=== PATIENT | female | born 1940 | race Caucasian/White ===

== ENCOUNTER → 2020-03-01 06:12 | Outpatient (CLI) | payer MEDICARE, OTHER, SELFPAY ==
--- NOTE | 2020-03-01 13:58 | STRESSREP_ITS ---
Stress Test Report Date: 03/01/2020 Procedure: Exercise tolerance test/imaging study Indications: Chest pain Consent: Per the patient Procedure: The patient exercised on a Wade protocol for 2 minutes and 30 seconds achieving a peak heart rate of 126 bpm (88 % predicted maximal heart rate) with a peak blood pressure 172/68 mmHg and a peak MET capacity of 4.8 METs. The baseline ECG demonstrated normal sinus rhythm. The peak exercise ECG demonstrated no significant ischemic changes. EKG during recovery revealed no significant ischemic changes [There were no cardiac dysrhythmias pretest, during exercise, or recovery]. The functional capacity was considered decreased for age. Patient had moderate chest tightness and shortness of breath with exertion which improved in the recovery.. The examination was discontinued secondary to dyspnea and chest pain. Impression: 1. Technically adequate (percent predicted maximal heart rate greater than 85%) exercise tolerance test 2. Stress test is negative for exercise-induced EKG changes of ischemia 3. The test test is positive for exercise-induced chest pain 4. Functional capacity is decreased for age 5. Nuclear images pending Myocardial perfusion imaging study: Technique: The patient was injected with 11.8 mCi of technetium 99m Cardiolite and subsequently rest SPECT Cardiolite nuclear imaging was obtained in the horizontal long, vertical long, and short axis views. The patient exercised on a Wade protocol. Please see above for details. The patient was injected with 33.5 mCi of technetium 99m Cardiolite and subsequently stress SPECT Cardiolite nuclear imaging was obtained in the horizontal long, vertical long, and short axis views. A gated Cardiolite study at peak stress was obtained. Interpretation: Rest and stress SPECT Cardiolite nuclear imaging status post realignment, normalization, and attenuation correction, demonstrates overall normal myocard ial radioisotope uptake. The gated Cardiolite study demonstrates no significant regional wall motion abnormalities. The reported LVEF is greater than 70 %. Impression: 1. There is no evidence of significant ischemia or infarction on the nuclear images. However patient had chest tightness and shortness of breath with exertion. 2. The gated Cardiolite study reports an LVEF of greater than 70 %. This note was generated with [employer]ation software. It may contain incorrect words, spelling, and punctuation that were not noted in checking the note before signing.
== END ==
PROVIDERS: PCP Internal Medicine; Referring Provider Clinical Nurse Specialist; Visit Provider Clinical Nurse Specialist
DX: R07.9 Chest pain, unspecified (principal); R06.02 Shortness of breath
CPT/HCPCS: 78452; 93005; 93017; A9500; A4216

== ENCOUNTER → 2020-03-21 15:44 | Outpatient (CLI) | payer MEDICARE, OTHER, SELFPAY ==
[2020-03-21 15:19] VITALS: BMI 23.2
--- NOTE | 2020-03-21 15:50 | RAD_ITS ---
STUDY: X-RAY CHEST REASON FOR EXAM: Female, 79 years old. CHEST PAIN FOR MONTHS, GETTING CARDIAC CATH SOMETIME NEXT WEEK TECHNIQUE: Frontal and lateral views of the chest. COMPARISON: None. FINDINGS: The lungs are hyperexpanded. There are coarsened interstitial markings suggestive of mild chronic fibrosis. No gross focal infiltrates. No gross effusions. Normal size heart. Normal mediastinum and nikhil. Normal visualized pulmonary arteries. Normal visualized aortic arch and descending thoracic aorta. There are diffuse degenerative changes of the visualized thoracic spine. There is degenerative osteoarthritis of the bilateral shoulders. There is no demonstrated abnormality of the visualized soft tissue structures of the upper abdomen. RAD/Chest PA and Lateral IMPRESSION: There are findings consistent with COPD. There is no evidence of acute chest disease. Electronically Signed: Deo Parker MD at 16:17 EDT , Service support ,
[2020-03-21 17:14] LABS: Absolute Lymphocyte Count 1.84 X10^3/uL (0.83-4.51); Absolute Neutrophil Count 5.1 X10^3/uL (2.0-7.7); Basophil# 0.08 X10^3/uL; Eosinophil# 0.17 X10^3/uL; Eosinophils% 2.1 % (0-5); Hematocrit 39.2 % (37-47); Hemoglobin 11.7 g/dL (12.0-15.0); Lymphocyte # 1.84 X10^3/ul (4.0); Lymphocyte % 23.2 % (19-41); Mean Corp Hgb Conc 29.8 g/dL (32-36); Mean Corpuscular Hgb 28.7 pg (27.0-32.0); Mean Corpuscular Volume 96.1 fL (81-99); Mean Platelet Vol. 9.7 fl (6.2-12.0); Monocyte# 0.75 X10^3/uL; Monocyte% 9.5 % (0-10); NRBC Flagged by Analyzer 0 % (0-5); Neutrophil # 5.07 X10^3/uL (2.7-7.7); Neutrophil % 64.1 % (47-70); Platelet Count 301 K/mm3 (150-450); RBC Distribution Width CV 13.4 % (11.6-14.6); RBC Distribution Width SD 47.8 fl (35.1-43.9); Red Blood Count 4.08 M/mm3 (4.2-5.4); White Blood Count 7.9 K/mm3 (4.4-11.0)
[2020-03-21 17:34] LABS: Anion Gap 1 (5-15); BUN 20 mg/dL (7-18); BUN/Creat Ratio 29.4 RATIO (10-20); Calcium,Total 9.3 mg/dL (8.5-10.1); Chloride 106 mmol/L (98-107); Creatinine, Serum 0.68 mg/dL (0.55-1.02); EST Glomerular Filtration Rate 89 mL/min (>60); Est Glom Filt Rate - Afr Amer 108 mL/min (>60); Glucose 87 mg/dL (74-106); Potassium 3.9 mmol/L (3.5-5.1); Sodium Level 140 mmol/L (136-145)
== END ==
PROVIDERS: PCP Internal Medicine; Referring Provider Internal Medicine Cardiovascular Disease; Visit Provider Internal Medicine Cardiovascular Disease
DX: R07.9 Chest pain, unspecified (principal); R06.00 Dyspnea, unspecified
CPT/HCPCS: 36415; 71046; 80048; 85025

== ENCOUNTER 2020-03-26 09:50 | Day surgery (SDC) | payer MEDICARE, OTHER, SELFPAY ==
[2020-03-21 15:19] VITALS: BMI 23.2
[2020-03-25 11:26] VITALS: BMI 23.0
--- NOTE | 2020-03-26 11:02 | CL.D_ITS ---
Patient Name: ELFEGO BALDWIN Study Date: 03/26/2020 Performing: Braulio Prince MD Ht: 62.99 inches 160 cm : 1940 Wt: 130.07 lbs 59 kg Age: 79 Gender: female BSA: 1.61 PROCEDURE(S) PERFORMED BE90-WYS/COR/LV CLINICAL PROFILE AND INDICATIONS Indications: Suspected CAD Heart Failure: None Stress/Imaging Stress/Image Study Performed: No CAD Presentations: Unstable angina. CONCLUSIONS Non obstructive coronary arteries RECOMMENDATIONS Management as per referring Chef Broiler Or Fry DESCRIPTION OF PROCEDURE The patient arrived to the procedure lab. The risks and benefits of the procedure as well as a full d escription of our services here and current unavailability of surgical backup were fully explained to the patient and/or their significant other prior to the catheterization. The Timeout was completed, verifying the correct patient and procedure. The patient's procedural site was prepped and draped in the usual fashion. Local anesthetic was given subcutaneously to right radial region with Lidocaine 2% . Using a modified Seldinger technique, arterial access was obtained via the right radial artery, a 6 Fr sheath was inserted. Left Coronary Artery selective angiography was performed in multiple views u sing a 5 Fr. 4.0 Blockton catheter. Right Coronary Artery selective angiography was then performed in mu ltiple views using a 5 Fr. 4.0 Blockton catheter. Left Ventriculography was performed in ESPOSITO projection using a 5 Fr. Pigtail catheter. LV to AO pullback pressures were then recorded.The arterial sheath was pulled and a TR Band was applied for hemostasis CORONARY ANGIOGRAPHY DOMINANCE: Right Dominant LEFT HEART ASSESSMENT Left Ventricular Ejection Fraction: by LV Gram 70 % Normal LV wall motion Normal Left Ventricular systolic function LEFT MAIN: Non-obstructive LEFT ANTERIOR DESCENDING ARTERY: No significant disease noted CIRCUMFLEX ARTERY: Mild luminal irregularities RIGHT CORONARY ARTERY: Mild luminal irregularities COMPLICATIONS No Complications PROCEDURE MEDICATIONS Versed 2 mg IV Oxygen: 2 L/min via nasal cannula SUMMARY OF HEMODYNAMIC DATA Time AIR REST ECG 10:14:08 AO 139/59 (93) SA 10:46:37 LV 124/-11, -3 10:52:50 LV 132/-8, 0 10:52:56 LV 121/-4, 2 10:53:40 LV 96/-8, -2 10:53:47 LVp 149/0, 7 10:53:58 AOp 131/50 (85) 10:54:03 Signed By Braulio Prince MD On 03/26/2020 11:01:47 Braulio Prince MD
== END 2020-03-26 12:45 | disposition home or self-care (01) ==
LOC: CLSP 09:51
PROVIDERS: PCP Internal Medicine; Referring Provider Internal Medicine Cardiovascular Disease; Visit Provider Internal Medicine Cardiovascular Disease
DX: R06.02 Shortness of breath (principal); R07.9 Chest pain, unspecified; R06.00 Dyspnea, unspecified; E78.5 Hyperlipidemia, unspecified; K21.9 Gastro-esophageal reflux disease without esophagitis; M81.0 Age-related osteoporosis without current pathological fracture; Z86.73 Personal history of transient ischemic attack (TIA), and cerebral infarction without residual deficits; Z87.891 Personal history of nicotine dependence
CPT/HCPCS: 93458; 99152; 99153; J7040; C1769; C1894; Q9967

== ENCOUNTER → 2020-08-07 14:02 | Outpatient (CLI) | payer MEDICARE, OTHER, SELFPAY ==
[2020-03-25 11:26] VITALS: BMI 23.0
--- NOTE | 2020-08-07 14:03 | CT_ITS ---
STUDY: CT CHEST WITHOUT CONTRAST REASON FOR EXAM: Female, 80 years old. DYSPNEA WITH EXERTION X SEVERAL MONTHS, PREV SMOKER-QUIT 50 YRS AGO RADIATION DOSAGE (If Supplied By Facility): CTDIvol = ( 7 ) mGy, DLP = ( 223.68 ) mGycm TECHNIQUE: Transaxial imaging was performed without the administration of intravenous contrast material. Multiplanar coronal and sagittal images were reformatted. Individualized dose optimization techniques were used for this CT. COMPARISON: Chest x-ray 03/21/2020 FINDINGS: There are a few scattered fibrotic bands involving the right middle lobe, lingula and bilateral upper lobes. No honeycombing or bronchiectasis. No endobronchial lesions. There is no demonstrated pleural abnormality. Normal heart and pericardium. There are calcifications of the coronary arteries. Normal mediastinum. Normal hilar regions. Normal unenhanced pulmonary arteries. There is atherosclerotic calcification of the aortic arch with tortuosity and elongation of the aortic arch and descending thoracic aorta. There are multi-level degenerative changes of the thoracic spine. Large simple appearing cyst of the left kidney measures 5.5 x 6.7 cm, incompletely imaged. CT/Chest without Contrast IMPRESSION: 1. No acute airspace disease, pulmonary nodule/mass. 2. Mild scattered fibrotic bands/scarring. 3. 6.7 cm left renal cyst incompletely imaged. Recommend renal ultrasound for further evaluation. 4. Atherosclerosis including coronary arteries. Electronically Signed: Homer Leal MD (Brooks) at 11:56 EST , Service support ,
== END ==
PROVIDERS: PCP Internal Medicine; Referring Provider Internal Medicine Pulmonary Disease; Visit Provider Internal Medicine Pulmonary Disease
DX: R06.00 Dyspnea, unspecified (principal)
CPT/HCPCS: 71250

== ENCOUNTER 2021-06-16 09:05 | Emergency (ER) | payer MEDICARE, OTHER, SELFPAY ==
[2021-06-16 09:05] VITALS: BP 199/89; PULSE 95; RESP 16; TEMP 36.4; O2SAT 99; BMI 23.5
--- NOTE | 2021-06-16 09:18 | RAD_ITS ---
STUDY: X-RAY - RIGHT SHOULDER REASON FOR EXAM: Female, 81 years old. injury TECHNIQUE: 5 view(s) of the shoulder. COMPARISON: None. FINDINGS: There is mild degenerative arthrosis of the glenohumeral articulation. Normal acromioclavicular joint. Normal acromion. Linear radiolucency within the lateral aspect of the cortex of the body the scapula worrisome for a scapular fracture. Correlation with CT would be useful. Normal humeral head and visualized proximal humerus. The soft tissue structures are unremarkable. Normal visualized pulmonary apex. RAD/Shoulder min 2 Views IMPRESSION: Suspect scapular fracture and correlation with CT would be useful. Electronically Signed: Orestes Borden MD at 9:59 EST Tel , Service support ,
--- NOTE | 2021-06-16 09:36 | EDS_ITS ---
HPI History of Present Illness Chief Complaint: Upper Extremity Injury Informant: patient Narrative Narrative: 81-year-old female presents the emergency room with a right shoulder injury. She states that last night she tripped on a rug while trying to let the dog outside. She states she must of twisted because the posterior aspect of her right shoulder struck the corner of the refrigerator. She states that it was painful for most of the night. She took some ibuprofen. Today it continued to hurt so she came to emergency. She notes that the elbow and the hand seem okay. States is very hard for her to try to lift anything. [facility] Medical History (Updated 06/16/21 @ 10:[address] Geoffrey Chatman, DO) GERD (gastroesophageal reflux disease) History of CVA (cerebrovascular accident) (06/19/17) Hyperlipidemia IBS (irritable bowel syndrome) Nonobstructive atherosclerosis of coronary artery Osteoarthritis Osteoporosis Home Medications cholecalciferol (vitamin D3) 1,000 unit PO BID 10/19/15 [History Last Taken Unknown] meclizine 50 mg PO DAILY PRN PRN 10/19/15 [History Last Taken 05/19/17] venlafaxine 75 mg PO DAILY 10/19/15 [History Last Taken 10/23/15] vit C,K-Kb-aesjf-lutein-zeaxan 1 ea PO DAILY 10/19/15 [History Last Taken 10/24/15] acetaminophen 650 mg PO Q4H PRN PRN #0 tab 11/01/15 [Rx Last Taken Unknown] atorvastatin 40 mg PO DAILY #30 tab 05/20/17 [Rx Last Taken Unknown] clopidogrel 75 mg PO DAILY #30 tab 05/20/17 [Rx Last Taken 06/14/21] ascorbate calcium (vitamin C) 500 mg tablet 500 mg PO BID 03/21/20 [History Last Taken Unknown] aspirin 81 mg tablet,delayed release 81 mg PO DAILY 03/21/20 [History Last Taken 03/26/20] chlorpheniramine maleate 4 mg tablet 4 mg PO Q8H PRN 03/21/20 [History Last Take n Unknown] nitroglycerin 0.4 mg sublingual tablet 0.4 mg SUBLINGUAL Q5-15M PRN 03/21/20 [History Last Taken Unknown] polypodium leucotomos extract 240 mg capsule mg PO .M/W/ cap 03/21/20 [History Last Taken Unknown] prenat.vits,luis,eox-icwj-uaowt 1 tab PO DAILY 03/21/20 [History Last Taken Unknown] 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) 30 mg PO ONCE 03/21/20 [History Last Taken Unknown] vitamin E (dl, acetate) 180 mg (400 unit) capsule 400 unit PO DAILY 03/21/20 [History Last Taken Unknown] pantoprazole 40 mg tablet,delayed release 40 mg PO DAILY tablet 10/23/20 [History Last Taken Unknown] oxycodone-acetaminophen 1 tab PO Q6H PRN PRN 5 Days #20 tablet 06/16/21 [Rx Last Taken Unknown] venlafaxine mg PO 06/16/21 [History Last Taken Unknown] Allergy/AdvReac Type Severity Reaction Status Date / Time fentanyl Allergy Itching Verified 06/16/21 09:08 codeine AdvReac Nausea/Vom/ Verified 06/16/21 09:08 Diarrhea Penicillins AdvReac Unknown Verified 06/16/21 09:08 Family History Other Heart disease Surgical History History of left heart catheterization (03/26/20) History of total hip arthroplasty Social History (Updated 06/16/21 @ 09:[address] Geoffrey Chatman DO) Smoking Status: Former smoker substance use type: does not use ROS ROS ED Constitutional Constitutional ED: Denies chills, fever(s) or weight loss Eyes Eyes: Denies change in vision or diplopia ENT ENT ED: Denies ear pain, rhinorrhea or sore throat Cardiovascular Cardiovascular: Denies chest pain, orthopnea, palpitations or racing heartbeat Respiratory/Chest Respiratory/Chest: Denies cough, dyspnea or orthopnea Gastrointestinal Gastrointestinal: Denies abdominal pain, diarrhea, nausea or vomiting Genitourinary Genitourinary ED: Denies dysuria, hematuria or urinary frequency Musculoskeletal Musculoskeletal: Reports other Details: Right shoulder pain ; Denies arthralgias, myalgias or neck pain Integumentary Denies abscess or rash Neurologic Neurologic: Denies headache(s) or weakness Psychiatric Psychiatric: Denies anxiety, depression, suicidal ideation or suicidal thoughts Endocrine Endocrinology: Denies polydipsia, polyphagia or polyuria Allergic/Immunologic Allergic/Immunologic ED: Denies mouth swelling, tongue swelling or urticaria EXAM Physical Exam Const Vital Signs: 06/16/21 09:05 Temperature 97.6 F L Temperature Source Temporal Pulse Rate 95 Respiratory Rate 16 Blood Pressure 199/89 H Blood Pressure Mean 125 Pulse Ox 99 Oxygen Delivery Method Room Air Positive well nourished and well developed General Appearance ED: well developed HEENT Reports normocephalic, head/scalp atraumatic and moist mucous membranes normocephalic and atraumatic Eyes PERRL and EOMs intact bilaterally Neck full ROM, no lymphadenopathy, supple and no JVD Resp normal respiratory effort and clear to auscultation bilaterally Cardio regular rate, regular rhythm and no murmurs GI normal to inspection, nondistended, normoactive bowel sounds and non-tender Palpation: soft Back/Spine no CVA tenderness and normal ROM Extremity Extremity Narrative: The right shoulder shows tenderness to palpation posteriorly and along the scapula laterally.. There is no AC tenderness or clavicle deformity. Very limited range of motion due to pain. No obvious dislocation. Neurovascular intact distal. General Extremety ED: Negative for edema General Extremity: Negative for edema Neuro oriented x3 and CN's II-XII intact bilaterally Sensorium / Orientation: alert Motor Exam: strength 5/5 throughout Psych mental status grossly normal Mood & Affect: Negative for depressed or tearful Skin no rashes or lesions noted and no wounds MDM MDM MDM Narrative Medical decision making narrative: My interpretation of the x-rays of the right shoulder is fracture of the body of the scapula. Patient received Toradol for pain as she is driving. A CT of the shoulder was obtained demonstrates no associated rib fractures. I do not see any obvious pneumothorax or pulmonary contusion. It is a nondisplaced fracture obliquely through the body. Her orthopedist is Dr. Tatum who will follow up with her as an outpatient Discharge Plan Triage Chief Complaint: Upper Extremity Injury ED Provider: Geoffrey Chatman Dx/Rx/DC Orders Clinical Impression: Closed fracture of right scapula Instructions: ED Fracture, Shoulder Prescriptions: New oxycodone-acetaminophen [oxycodone-acetaminophen] 1 TABLET tablet 1 tab PO Q6H PRN PRN (Reason: pain) 5 Days Qty: 20 RF: 0 No Action aspirin [Adult Aspirin Regimen] 81 mg tablet,delayed release (DR/EC) 81 mg PO DAILY RF: 0 nitroglycerin 0.4 mg tablet, sublingual 0.4 mg SUBLINGUAL Q5-15M PRN (Reason: chest pain) RF: 0 vitamin E (dl, acetate) 400 unit capsule 400 unit PO DAILY RF: 0 ascorbate calcium (vitamin C) 500 mg tablet 500 mg PO BID RF: 0 polypodium leucotomos extract 240 mg capsule 240 mg capsule PO .// RF: 0 prenat.vits,luis,qtp-pmmk-lxgzi Tablet 1 tab PO DAILY RF: 0 chlorpheniramine maleate [ChlorTabs] 4 mg tablet 4 mg PO Q8H PRN (Reason: Allergies) RF: 0 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) 30 mg PO ONCE RF: 0 pantoprazole 40 mg tablet,delayed release (DR/EC) 40 mg PO DAILY RF: 0 venlafaxine 75 MG tablet 75 mg PO DAILY RF: 0 cholecalciferol (vitamin D3) 1,000 UNIT tablet 1,000 unit PO BID RF: 0 vit C,D-Ou-qjrko-lutein-zeaxan 1 EACH capsule 1 ea PO DAILY RF: 0 meclizine 25 MG tablet 50 mg PO DAILY PRN PRN (Reason: Dizziness) RF: 0 acetaminophen 325 MG tablet 650 mg PO Q4H PRN PRN (Reason: Mild-Mod Pain (-12/17)) Qty: 0 RF: 0 clopidogrel 75 MG tablet 75 mg PO DAILY Qty: 30 RF: 0 atorvastatin 40 MG tablet 40 mg PO DAILY Qty: 30 RF: 0 venlafaxine 150 mg capsule,extended release 24hr PO RF: 0 Primary Care Provider: Cary Moon Referrals: Cary Moon MD [Primary Care Provider] - Fabio Tatum MD [STAFF PHYSICIAN] - As soon as possible Disposition Disposition: Home, Self Care
--- NOTE | 2021-06-16 09:40 | CT_ITS ---
STUDY: CT RIGHT SHOULDER REASON FOR EXAM: Female, 81 years old. scapula fracture RADIATION DOSAGE (If Supplied By Facility): CTDIvol = ( 24.60 ) mGy, DLP = ( 511.78 ) mGycm TECHNIQUE: The patient was scanned in a multi detector CT scanner. High resolution transaxial imaging was performed without the administration of intravenous contrast material. Sagittal and coronal images were reconstructed. Individualized dose optimization techniques were used for this CT. COMPARISON: X-ray earlier today FINDINGS: There is mild osteoarthritis of the glenohumeral articulation, with mild articular joint space narrowing and mild osteoarthritic spurring. Normal glenoid rim, neck and visualized scapula. Normal humeral head, neck and tuberosities. Acute nondisplaced oblique fracture the body the scapula. Normal coracoid process. Normal visualized lateral clavicle. Normal acromioclavicular articulation. There is a Type II morphology (curved), with a neutral orientation. Normal visualized muscles and soft tissue structures. CT/Extremity Upper without Contra IMPRESSION: Acute nondisplaced oblique fracture the body the scapula. Electronically Signed: Orestes Borden MD at 10:44 EST Tel , Service support ,
[2021-06-16 09:49] VITALS: BP 178/76; PULSE 95; RESP 16; O2SAT 99
[2021-06-16] MEDS: Ketorolac 30 MG/ML Syringe IM (10:08)
== END 2021-06-16 11:04 | disposition home or self-care (01) ==
PROVIDERS: Emergency Provider Emergency Medicine; PCP Internal Medicine
DX: S42.114A Nondisplaced fracture of body of scapula, right shoulder, initial encounter for closed fracture (principal); W22.8XXA Striking against or struck by other objects, initial encounter; Y93.89 Activity, other specified; Y92.9 Unspecified place or not applicable; Y99.8 Other external cause status; E78.5 Hyperlipidemia, unspecified; K21.9 Gastro-esophageal reflux disease without esophagitis; K58.9 Irritable bowel syndrome, unspecified; M19.90 Unspecified osteoarthritis, unspecified site; M81.0 Age-related osteoporosis without current pathological fracture; Z79.02 Long term (current) use of antithrombotics/antiplatelets; Z79.82 Long term (current) use of aspirin; Z79.899 Other long term (current) drug therapy; Z87.891 Personal history of nicotine dependence; Z86.73 Personal history of transient ischemic attack (TIA), and cerebral infarction without residual deficits
CPT/HCPCS: 73030; 73200; 96372; 99283

== ENCOUNTER → 2021-12-24 | Outpatient (CLI) | payer MEDICARE, OTHER, SELFPAY ==
--- NOTE | 2021-12-24 | MISC_PTH ---
PATIENT: ELFEGO BALDWIN (ANN MARIE) [facility] U[facility][id number] AGE/SX: 81/F ROOM: RE12/24/[address]: Dr. Arsh Bragg DO : 1940 BED: DIS: 12/24/2021 SPEC #: [id number] RECD: 12/24/21 15:02 STATUS: CATHY RESteve #: [id number] SUNG: 12/24/21 00:[address]: Arsh Bragg DEPT: SURGICAL PATHOLOGY RECD BY: Glynn Strong ENTERED: 12/25/21 09:15 SP TYPE: [facility] [place]: Dr. Cary Moon MD Tissues: Vertebra, NOS Procedures: Decalcification bone/plaque Surgery Specimen Level V HEADER OPERATION: Thoracic 11 kyphoplasty PRE-OP DIAGNOSIS: Wedge compression fracture of T11-T12 vertebra TISSUE SUBMITTED: T11 vertebra MICROSCOPIC DIAGNOSIS T11 vertebra, kyphoplasty: Fragments of bone with callus formation and reactive changes, clinically wedge compression fracture T11-T12 vertebra. PATRICK:rodrigo 12/26/2021 MICROSCOPIC DESCRIPTION Slides are reviewed. GROSS DESCRIPTION Received in fixative is one container labeled with the patient's name and designated T11 vertebra. The specimen consists of two elongated fragments of crews bone each measuring 0.6 cm in length and 0.2 cm in diameter. The specimen is totally submitted in one cassette after decalcification. / PATRICK:rodrigo 12/25/2021 TC:5 CPT: 17151, 72837
== END | disposition home or self-care (01) ==
LOC: LABSPEC 15:27
PROVIDERS: PCP Internal Medicine; Referring Provider Orthopaedic Surgery; Visit Provider Orthopaedic Surgery
DX: M48.54XA Collapsed vertebra, not elsewhere classified, thoracic region, initial encounter for fracture (principal)
CPT/HCPCS: 88305; 88307; 88311

== ENCOUNTER 2023-08-28 15:45 | Inpatient (IN) | payer MEDICARE, OTHER, SELFPAY ==
--- OUTSIDE RECORDS SUMMARY | 2023-08-28 16:05 | XMS RPT_ITS | CCD ---
Author Name Unknown Address [address] [place] [address] Organization [facility] Care Team Providers Care Ccie Name Role Phone Subha Whiteside Unavailable UnavailSubha Thomson Unavailable Unavailabl e Sarai Jonny Tatiana Unavailable Unavailable Jonny Moon MD Primary Care Provider Jonny Moon MD Primary Care Provider Jonny Moon MD Primary Care Provider SARAI JONNY D Referring Unavailable TALAMPAS, JONNY D Primary Care Unavailable TALAMPAS, JONNY D Referring Unavailable TALAMPAS, JONNY D Primary Care Unavailable TALAMPAS, JONNY D Attending Unavailable TALAMPAS, JONNY D Primary Care Unavailable TALAMPAS, JONNY D Referring Unavailable TALAMPAS, JONNY D Primary Care Unavailable TALAMPAS, JONNY D Primary Care Unavailable TALAMPAS, JONNY D Primary Care Unavailable TALAMPAS, JONNY D Attending Unavailable PATTI MAN Attending PATTI Maldonado Consulting PATTI Maldonado Admitting Unavai lable NO, PHYSICIAN Primary Care Unavailable CRISSY LUU Consulting Unavailab PATTI Back Referring PATTI Maldonado Admitting Unavai lable NO, PHYSICIAN Primary Care Unavailable NO, PHYSICIAN Primary Care Unavailable WESTLEY HAMEED Attending Unavailable WESTLEY HAMEED Admitting Unavailable Allergies Allergy Classification Reported Allergen(s) Allergy Type Date of Onset Reaction(s) Facility (20 sources) codeine; Translations: [codeine] Drug Allergy 3 GI Upset [facility] Repository (20 sources) fentaNYL; Translations: [fentaNYL] Drug Allergy 7 Itching [facility] Repository (20 sources) Penicillins; Translations: [penicillins] Propensity to adverse reactions to drug (disorder) 3 Unknown [facility] Repository Medications Current Medications Medication Drug Class(es) Dates Sig (Normalized) Sig (Original) polyethylene glycol 3350 690795 mg / potassium chloride 2970 mg / sodium bicarbonate 6740 mg / sodium chloride 5860 mg / sodium sulfate 61026 mg powder for oral solution (1 source) Osmotic Laxative Start: 04-09-2022 End: 04-09-2022 peg 3350-Electrolytes (GOLYTELY) 236-22.74-6.74 -5.86 gram suspension Take 4,000 mL by mouth one time only for 1 dose. 1 Each 0 04/09/2022 04/09/2022 Active Completed/Discontinued Medications Medication Drug Class(es) Dates Sig (Normalized) Sig (Original) 8 hr acetaminophen 650 mg extended release oral tablet (20 sources) Start: 12-17-2007 acetaminophen(TYLE NOL ARTHRITIS PAIN 650 MG TAB) Take two(2) tablets twice daily. 0 0 12/17/2007 Active Problems Active Problems Problem Classification Problem Date Documented Da te Episodic/Chronic Abdominal pain (5 sources) Right upper quadrant pain; Translations: [Right upper quadrant pain] Episodic Deficiency and other anemia (2 sources) Iron deficiency anemia; Translations: [Iron deficiency anemia, unspecified] Episodic Disorders of lipid metabolism (20 sources) Hyperlipidemia; Translations: [Hyperlipidemia, unspecified] Onset: 5 10-16-2015 Chronic E Codes: Fall (1 source) Fall; Translations: [Unspecified fall, initial encounter] Episodic Esophageal disorders (20 sources) Gastroesophageal reflux disease without esophagitis; Translations: [Gastro-esophageal reflux disease without esophagitis] Onset: 6 08-05-2021 Chronic Fracture of lower limb (2 sources) Displaced oblique fracture of shaft of right femur, initial encounter for closed fracture; Translations: [Displaced oblique fracture of shaft of right femur, initial encounter for closed fracture] Onset: Episodic Malaise and fatigue (2 sources) Fatigue; Translations: [Other fatigue] Episodic Mood disorders (20 sources) Recurrent major depression in remission; Translations: [Major depressive disorder, recurrent, in remission, unspecified] Onset: 7 11-17-2016 Chronic Nutritional deficiencies (20 sources) Vitamin D deficiency; Translations: [Vitamin D deficiency, unspecified] Onset: 8 07-05-2018 Chronic Osteoporosis (20 sources) Osteoporosis; Translations: [Age-related osteoporosis without current pathological fracture] 08-05-2021 Chronic Other aftercare (5 sources) Patient encounter status; Translations: [Other mcc (current) drug therapy] Episodic Other aftercare (1 source) Other mcc (current) drug therapy; Translations: [Encounter for long-term current use of medication] Onset: 3 Episodic Other connective tissue disease (20 sources) History of total replacement of right hip joint; Translations: [Presence of right artificial hip joint] Onset: 4 08-05-2021 Chronic Other connective tissue disease (1 source) Cramp in lower limb; Translations: [Cramp and spasm] Episodic Other fractures (1 source) Closed fracture thoracic vertebra; Translations: [Unspecified fracture of T11-T12 vertebra, initial encounter for closed fracture] Episodic Other gastrointestinal disorders (20 sources) Constipation; Translations: [Constipation, unspecified] 08-05-2021 Episodic Other gastrointestinal disorders (1 source) Alteration in bowel elimination; Translations: [Change in bowel habit] Episodic Other gastrointestinal disorders (1 source) Altered bowel function; Translations: [Change in bowel habit] 06-17-2022 Episodic Other gastrointestinal disorders (1 source) Abdominal bloating; Translations: [Abdominal distension (gaseous)] 06-17-2022 Episodic Other nervous system disorders (1 source) Loss of sense of smell; Translations: [Anosmia] Episodic Other nervous system disorders (2 sources) Loss of taste; Translations: [Parageusia] Episodic Pathological fracture (3 sources) Primary osteoporosis; Translations: [Age-related osteoporosis with current pathological fracture, unspecified site, subsequent encounter for fracture with delayed healing] Episodic Residual codes; unclassified (1 source) Postmenopausal state; Translations: [Asymptomatic menopausal state] 07-21-2023 Episodic Residual codes; unclassified (1 source) Asymptomatic menopausal state; Translations: [Postmenopausal status] Onset: 01-08-202 4 Episodic Spondylosis; intervertebral disc disorders; other back problems (20 sources) Thoracic and lumbosacral neuritis; Translations: [Thoracic or lumbosacral neuritis or radiculitis, unspecified] 07-17-2005 Episodic Viral infection (1 source) Disease caused by 2019-nCoV; Translations: [COVID-19] Episodic Past or Other Problems Problem Classification Problem Date Documented Date Episodic/Chronic Deficiency and other anemia (20 sources) Anemia; Translations: [Anemia, unspecified] Onset: 01-29-2013 01-29-2013 Episodic Genitourinary symptoms and ill-defined conditions (20 sources) Nocturia; Translations: [Nocturia] Onset: 07-12-2017 07-12-2017 Episodic Inflammation; infection of eye (except that caused by tuberculosis or sexually transmitteddisease) (20 sources) Uveitis; 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] Onset: 04-06-2017 04-06-2017 Episodic Other circulatory disease (20 sources) History of cerebrovascular accident; Translations: [Personal history of transient ischemic attack (TIA), and cerebral infarction without residual deficits] Onset: 07-12-2017 07-12-2017 Episodic Results Test Name Value Interpretation Reference Range Facil ity Vital Signs Date Time Vital Sign Value Performing Clinician Faci lity 07-20-2023 10:50-0500 Body height 157.5 cm Jonny Moon MD Work Phone: [facility] 07-20-2023 10:50-0500 Body temperature 99.19 [degF] Jonny Moon MD Work Phone: [facility] 07-20-2023 10:50-0500 Body weight 57.15 kg Jonny Moon MD Work Phone: [facility] 07-20-2023 10:50-0500 Diastolic blood pressure 68 mm[Hg] Jonny Moon MD Work Phone: [facility] 07-20-2023 10:50-0500 Heart rate 75 /min Jonny Moon MD Work Phone: [facility] 07-20-2023 10:50-0500 Respiratory rate 12 /min Jonny Moon MD Work Phone: [facility] 07-20-2023 10:50-0500 SaO2% (BldA) [Mass fraction] 98 % Jonny Moon MD Work Phone: [facility] 07-20-2023 10:50-0500 Systolic blood pressure 122 mm[Hg] Jonny Moon MD Work Phone: [facility] 01-12-2023 15:26-0400 Body temperature 98.71 [degF] Jonny Moon MD Work Phone: [facility] 01-12-2023 15:26-0400 Body weight 55.34 kg Jonny Moon MD Work Phone: [facility] 01-12-2023 15:26-0400 Diastolic blood pressure 72 mm[Hg] Jonny Moon MD Work Phone: [facility] 01-12-2023 15:26-0400 Heart rate 72 /min Jonny Moon MD Work Phone: [facility] 01-12-2023 15:26-0400 Respiratory rate 18 /min Jonny Moon MD Work Phone: [facility] 01-12-2023 15:26-0400 SaO2% (BldA) [Mass fraction] 99 % Jonny Moon MD Work Phone: [facility] 01-12-2023 15:26-0400 Systolic blood pressure 142 mm[Hg] Jonny Moon MD Work Phone: [facility] 07-07-2022 14:55-0500 Body temperature 98.01 [degF] Treatment Wstr Work Phone: [facility] 07-07-2022 14:55-0500 Diastolic blood pressure 72 mm[Hg] Treatment Wstr Work Phone: [facility] 07-07-2022 14:55-0500 Heart rate 87 /min Treatment Wstr Work Phone: [facility] 07-07-2022 14:55-0500 Systolic blood pressure 138 mm[Hg] Treatment Wstr Work Phone: [facility] 06-17-2022 11:49-0500 Diastolic blood pressure 67 mm[Hg] Orestes Jackson MD Work Phone: [facility] 06-17-2022 11:49-0500 Heart rate 72 /min Orestes Jackson MD Work Phone: [facility] 06-17-2022 11:49-0500 Respiratory rate 16 /min Orestes Jackson MD Work Phone: [facility] 06-17-2022 11:49-0500 SaO2% (BldA) [Mass fraction] 97 % Orestes Jackson MD Work Phone: [facility] 06-17-2022 11:49-0500 Systolic blood pressure 155 mm[Hg] Orestes Jackson MD Work Phone: [facility] 06-17-2022 09:17-0500 Body temperature 97.59 [degF] Orestes Jackson MD Work Phone: [facility] 06-17-2022 09:17-0500 Body weight 56.7 kg Orestes Jackson MD Work Phone: [facility] 05-23-2022 14:54-0400 Body weight 56.7 kg Jonny Moon MD Work Phone: [facility] 05-23-2022 14:54-0400 Diastolic blood pressure 78 mm[Hg] Jonny Moon MD Work Phone: [facility] 05-23-2022 14:54-0400 Heart rate 81 /min Jonny Moon MD Work Phone: [facility] 05-23-2022 14:54-0400 SaO2% (BldA) [Mass fraction] 97 % Jonny Moon MD Work Phone: [facility] 05-23-2022 14:54-0400 Systolic blood pressure 142 mm[Hg] Jonny Moon MD Work Phone: [facility] 04-08-2022 14:47-0400 Body height 157.5 cm Desiree Aviston PA-C Work Phone: [facility] 04-08-2022 14:47-0400 Body temperature 98.01 [degF] Desiree Aviston PA-C Work Phone: [facility] 04-08-2022 14:47-0400 Body weight 56.25 kg Desiree Sal PA-C Work Phone: [facility] 04-08-2022 14:47-0400 Diastolic blood pressure 62 mm[Hg] Desiree Sal PA-C Work Phone: [facility] 04-08-2022 14:47-0400 Heart rate 87 /min Desiree Sal PA-C Work Phone: [facility] 04-08-2022 14:47-0400 SaO2% (BldA) [Mass fraction] 97 % Desiree Sal PA-C Work Phone: [facility] 04-08-2022 14:47-0400 Systolic blood pressure 132 mm[Hg] Desiree Aviston PA-C Work Phone: [facility] 01-14-2022 13:38-0400 Body weight 58.06 kg Sandi Lara NOVELTY CHAIN MAKER.INSPECTOR AND UNLOADER Work Phone: [facility] 01-14-2022 13:38-0400 Diastolic blood pressure 82 mm[Hg] Sandi Lara NOVELTY CHAIN MAKER.INSPECTOR AND UNLOADER Work Phone: [facility] 01-14-2022 13:38-0400 Heart rate 84 /min Sandi Lara NOVELTY CHAIN MAKER.INSPECTOR AND UNLOADER Work Phone: [facility] 01-14-2022 13:38-0400 Respiratory rate 16 /min Sandi Lara NOVELTY CHAIN MAKER.INSPECTOR AND UNLOADER Work Phone: [facility] 01-14-2022 13:38-0400 Systolic blood pressure 136 mm[Hg] Sandi Lara NOVELTY CHAIN MAKER.INSPECTOR AND UNLOADER Work Phone: [facility] 12-03-2021 14:01-0400 Body temperature 97.81 [degF] Annie Abebe NOVELTY CHAIN MAKER.EXPLOITATION ANALYST Work Phone: [facility] 12-03-2021 14:01-0400 Body weight 59.24 kg Annie Abebe NOVELTY CHAIN MAKER.EXPLOITATION ANALYST Work Phone: [facility] 12-03-2021 14:01-0400 Diastolic blood pressure 78 mm[Hg] Annie Abebe NOVELTY CHAIN MAKER.EXPLOITATION ANALYST Work Phone: [facility] 12-03-2021 14:01-0400 Heart rate 88 /min Annie Abebe NOVELTY CHAIN MAKER.EXPLOITATION ANALYST Work Phone: [facility] 12-03-2021 14:01-0400 Respiratory rate 16 /min Annie Abebe NOVELTY CHAIN MAKER.EXPLOITATION ANALYST Work Phone: [facility] 12-03-2021 14:01-0400 SaO2% (BldA) [Mass fraction] 99 % Annie Abebe NOVELTY CHAIN MAKER.EXPLOITATION ANALYST Work Phone: [facility] 12-03-2021 14:01-0400 Systolic blood pressure 126 mm[Hg] Annie Abebe NOVELTY CHAIN MAKER.EXPLOITATION ANALYST Work Phone: [facility] 11-18-2021 16:51-0400 Body weight 61.69 kg Jonny Moon MD Work Phone: [facility] 11-18-2021 16:51-0400 Diastolic blood pressure 82 mm[Hg] Jonny Moon MD Work Phone: [facility] 11-18-2021 16:51-0400 Heart rate 84 /min Jonny Moon MD Work Phone: [facility] 11-18-2021 16:51-0400 Systolic blood pressure 128 mm[Hg] Jonny Moon MD Work Phone: [facility] Encounters Encounter Date Encounter Type Care Provider Facility Start: 08-25-2023 Evaluation and management of inpatient [facility] Start: 08-21-2023 Evaluation and management of inpatient [facility] Start: 08-21-2023 End: 08-25-2023 Emergency department patient visit [facility] Start: 08-17-2023 End: 08-17-2023 ambulatory JONNY MOON Facility:[facility] Start: 08-14-2023 End: 08-14-2023 ambulatory JONNY MOON Facility:[facility] Start: 07-20-2023 End: 07-20-2023 ambulatory JONNY MOON Facility:[facility] Start: 07-20-2023 End: 07-20-2023 Office outpatient visit 25 minutes Jonny Moon MD Work Phone: [facility] Procedures Date Procedure Procedure Detail Performing Clinician Start: 06-17-2022 Level iv surg pathology gross&microscopic exam Orestes Jackson MD Work Phone: Start: 06-17-2022 Esophagogastroduodenoscopy transoral diagnostic Desiree Huang PA-C Work Phone: Start: 06-17-2022 Colonoscopy flx dx w/collj spec when pfrmd Desiree Huang PA-C Work Phone: Start: 06-17-2022 Colonoscopy Jonny Moon MD Work Phone: Start: 05-23-2022 INFLUENZA SEASONAL QUADRIVALENT HIGH DOSE AGE 65+ Jonny Moon MD Work Phone: Start: 01-16-2022 Us abdominal real time w/image limited Sandi Isaacdedra ALICEAINSPECTOR AND UNLOADER Work Phone: Plan of Treatment Date Care Activity Detail Author Start: 06-17-2032 Colonoscopy COLONOSCOPY [facility] Start: 06-17-2032 COLORECTAL CANCER SCREENING COLORECTAL CANCER SCREENING [facility] Start: 06-17-2032 Screening for malignant neoplasm of colon [facility] Start: 06-12-2026 Diabetes Screening Diabetes Screening [facility] Start: 07-07-2025 DIABETES SCREEN DIABETES SCREEN [facility] Start: 07-07-2025 Diabetes Screening Diabetes Screening [facility] Start: 03-14-2025 DIABETES SCREEN DIABETES SCREEN [facility] Start: 07-20-2024 End: 10-19-2024 25-hydroxyvitamin D3 [Mass/volume] in Serum or Plasma VITAMIN D 25 HYDROXY Lab Routine Vitamin D deficiency Age-related osteoporosis without current pathological fracture Encounter for long-term current use of medication Expected: 07/20/2024 (Approximate), Expires: 10/19/2024 [facility] Work Phone: Immunizations Immunization Date Immunization Notes Care Provider Jesus Manuel kanu 12-09-2022 zoster vaccine recombinant Jonny Moon MD Work Phone: [facility] 05-23-2022 influenza, high-dose , quadrivalent vaccine (FLUZONE HIGH DOSE QUADRIVALENT) Jonny Moon MD Work Phone: [facility] 05-23-2022 influenza virus vacc ine, unspecified formulation Jonny Moon MD Work Phone: [facility] 05-03-2021 influenza (HD-IIV4) vaccine, age 65+ yr, high dose, quadrivalent, PF (FLUZONE HIGH-DOSE) Jonny Moon MD Work Phone: [facility] 05-03-2021 influenza, high dose seasonal, preservative-free Jonny Moon MD Work Phone: [facility] Work Phone: 05-01-2020 influenza, high dose seasonal, preservative-free Jonny Moon MD Work Phone: [facility] 04-12-2020 influenza (HD-IIV4) vaccine, age 65+ yr, high dose, quadrivalent, PF (FLUZONE HIGH-DOSE) Jonny Moon MD Work Phone: [facility] 04-18-2019 influenza, high dose seasonal, preservative-free Jonny Moon MD Work Phone: [facility] 06-11-2018 influenza virus vacc ine, unspecified formulation Jonny Moon MD Work Phone: [facility] 04-18-2017 influenza, seasonal, injectable, preservative free Jonny Moon MD Work Phone: [facility] 04-20-2016 influenza, seasonal, injectable Jonny Moon MD Work Phone: [facility] Work Phone: 06-20-2015 influenza, seasonal, injectable, preservative free Jonny Moon MD Work Phone: [facility] 04-20-2015 influenza, seasonal, injectable Jonny Moon MD Work Phone: [facility] 08-25-2014 pneumococcal conjuga te vaccine, 13 valent Jonny Moon MD Work Phone: [facility] 04-28-2014 influenza, seasonal, injectable Jonny Moon MD Work Phone: [facility] 06-20-2013 tetanus toxoid, redu jhon diphtheria toxoid, and acellular pertussis vaccine, adsorbed Jonny Moon MD Work Phone: [facility] 04-10-2013 influenza virus vacc ine, whole virus Jonny Moon MD Work Phone: [facility] Work Phone: 12-17-2007 pneumococcal polysaccharide vaccine, 23 valent Jonny Moon MD Work Phone: [facility] Work Phone: Payers Date Payer Category Payer Medicare [id number] 2015 Medicare MEDICARE MEDICAR E A AND B [id number] 2015-Present [phone] [address] [address] [place] [address] Medicare [id number] 2015 Medicare [id number] 2015 Private Health Insurance HUMANA HUMANA MEDICARE SUPPLEMENT [id number] 2015-Present [phone] [address] [address] [place] [address] Indemnity [id number] 2015 Private Health Insurance HUMANA HUMANA MEDICARE SUPPLEMENT [id number] 2015-Present [phone] [address] [address] [place] [address] Indemnity [id number] 2007 Medicare 2007 Medicare [id number] 1940 Unknown [id number] 1940 Unknown [id number] 1940 Unknown [id number] Social History Date Type Detail Facility Start: 08-15-2011 Tobacco smoking stat [facility] Never smoked tobacco [facility] Start: 05-08-2021 End: 07-20-2023 Alcohol intake Current non-drinker of alcohol (finding) [facility] Start: 10-18-2019 End: 09-05-2020 History SDOH Alcohol Frequency 2 [facility] Start: 10-18-2019 End: 09-05-2020 History SDOH Alcohol Std Drinks 1 [facility] Start: 02-22-2020 End: 01-14-2022 History SDOH Social Connections Phone 4 [facility] Start: 02-22-2020 End: 01-14-2022 History SDOH Social Connections Get Together 98 [facility] Start: 10-18-2019 End: 01-14-2022 History SDOH Social Connections Scientologist 3 [facility] Start: 10-18-2019 History SDOH Financial 5 [facility] Start: 10-18-2019 Education 17 [facility] Start: 1940 Sex Assigned At Female C [facility] Start: 11-08-2021 End: 07-07-2022 Exposure to SARS-CoV-2 (event) Not sure [facility] Start: 08-15-2011 Tobacco use and exposure Smoke less tobacco non-user [facility] Start: 01-14-2022 End: 01-12-2023 History of Social function [facility] Start: 01-14-2022 End: 01-12-2023 Tobacco use panel [facility] National Score (1-10 0), lower number is lower risk 79 [facility] Start: 10-20-2019 Gender identity Identifies as female gender (finding) [facility] Start: 10-20-2019 Sexual orientation Heterosexual (fin gemma) [facility] Are you now , , , , never or living with a partner? [facility] (I/We) worried wheth er (my/our) food would run out before (I/we) got money to buy more. DK or Refused [facility] Clinical Notes 06-02-2017 to 08-17-2023 Patient InstructionsTalJonny juares MD - 07/20/2023 11:21 AM ESTTelephone Encounter - Emilia Rand - 07/13/2023 3:08 PM ESTTelephone Encounter - Merna Esteves - 07/08/2023 10:29 AM EST Note Date & Type Note Facility 08-17-2023 Note HNO ID: [id number] Author: OSWALD HALL RT(R) Service: ? Author Type: Technologist Type: Progress Notes Filed: 08/17/2023 13:46 Note Text: Radiology Service Progress Note PATIENT NAME: Radha Medina DATE OF SERVICE: August 17, 2023 TIME: 1:33 PM PATIENT IDENTITY VERIFICATION COMPLETED USING TWO (2) IDENTIFIERS: Name and Date of confirmed by patient verbally. FALL SCREENING: Has the patient had 2 falls in the last year or 1 fall with injury or currently using an Ambulatory Assistive Device (Walker, Cane, Wheelchair, Crutches, etc.)? No PATIENT GENDER DATA: Female. status: : No status: NO. PATIENT RELEVANT IMPLANT DATA REVIEWED: Not Applicable RADIOLOGY DEPARTMENT: Bone Density PERIPHERAL IV DATA: Not applicable SIGNED BY: RT Reynold(R) August 17, 2023 1:33 PM [facility] 08-14-2023 Note HNO ID: [id number] Author: JULIETH ESQUIVEL APRN.EXPLOITATION ANALYST Service: ? Author Type: Nurse Practitioner Type: Progress Notes Filed: 08/14/2023 13:48 Note Text: Subjective HPI HPI Radha Medina is a 83 year old female who presents today for CC of burning and urgency with urination for 5 days. This morning when she wiped she noted blood. She augie any fever, chills or body aches. She has not used any medications or treatment BP 191/77 Pulse 80 Temp 36.5 ?C (97.7 ?F) Resp 18 Wt 58.5 kg (129 lb) SpO2 98% BMI 23.59 kg/m? Social History Tobacco Use Smoking status: Never Smokeless tobacco: Never Vaping Use Vaping Use: Never used Substance Use Topics Alcohol use: No Drug use: No PAST MEDICAL HISTORY Diagnosis Date CVA (cerebral vascular accident) (HCC) 06/02/2017 [facility] acute ischemic right posterior putamen stroke on MRI ASA, Plavix atorvastatin. Follow up with Dr. Witt scheduled. 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 May 2017; treated at [facility] Irritable bowel syndrome Osteoporosis, unspecified Stroke ([facility]) Thoracic or lumbosacral neuritis or radiculitis, unspecified Unspecified constipation Constipation I have confirmed and edited as necessary, the [facility] Review of Systems Constitutional: Negative for chills and fever. Gastrointestinal: Negative for abdominal pain. Genitourinary: Positive for dysuria, frequency, hematuria and urgency. Negative for flank pain. Objective Physical Exam Vitals and nursing note reviewed. Constitutional: Appearance: Normal appearance. Abdominal: General: Bowel sounds are normal. There is no abdominal bruit. Palpations: Abdomen is not rigid. There is no mass or pulsatile mass. Tenderness: There is no abdominal tenderness. There is no guarding or rebound. Negative signs include Woods's sign and McBurney's sign. Neurological: Mental Status: She is alert and oriented to person, place, and time. Psychiatric: Mood and Affect: Affect normal. ASSESSMENT/PLAN: 1. Burning with urination - ICD9: 788.1, ICD10: R30.0 (primary diagnosis) acute - UA positive for eduardo esterase, hematuria, and nitrates - Send urine for culture - Patient education for prevention given - UA DIP, URINE (POC) - URINE CULTURE 2. Acute UTI - ICD9: 599.0, ICD10: N39.0 Started on Keflex, complete unless we call for a change. Diagnosis and treatment plan were discussed and questions were answered to the patient's satisfaction. Pt acknowledged understanding of concepts and follow up plan. Specific signs and symptoms that would indicate the need for higher level of care were discussed in detail warranting prompt ER evaluation. Julieth Esquivel APRN.[facility] 07-21-2023 Instructions Jonny Moon MD - 07/21/2023 12:15 AM EST BONE MINERAL DENSITY PATIENT INSTRUCTIONS ========= Bone mineral density testing measures the amount of calcium in certain parts of your bones. This information determines how strong your bones are. The test is used to detect osteoporosis, a disease in which the bone's mineral content and density are low, increasing a person's risk of fractures. The lumbar spine (lower back) and the hip are the skeletal sites usually examined. For the test, remember that: 1. You cannot take this test if you are . 2. Eat a normal diet on the day of the test. 3. Take your medications as you normally would. 4. DO NOT take calcium supplements (such as Tums) for 24 hours before the test. 5. On the day of the test, leave valuables (jewelry or credit cards) at home. 6. The test should be performed prior to oral, rectal or IV contrast studies, or at least 7 days after any of these studies. For the test, you may be asked to wear a hospital gown. You will lie on your back, on a padded table, in a comfortable position. Generally, you can resume your usual activities immediately. documented in this encounter [facility] 07-20-2023 Note HNO ID: [id number] Author: Jonny Moon MD Service: ? Author Type: Physician Type: Progress Notes Filed: 07/21/2023 12:19 AM Note Text: This note was created using [employer]. Subjective Radha Medina is a 83 year old female. Patient presents with: F/U 6 months: cholesterol SUBJECTIVE: Radha Medina is a 83 year old year old lady here today for 6 month follow up appointment for review of medical conditions. Gets achy and mostly takes Tylenol. If really bad, needs naproxen. Doing well on current meds. Noted that Crestor pill is really tiny. See assessment and plan for other issues addressed. PAST MEDICAL HISTORY Diagnosis Date CVA (cerebral vascular accident) (HCC) 06/02/2017 [facility] acute ischemic right posterior putamen stroke on MRI ASA, Plavix atorvastatin. Follow up with Dr. Witt scheduled. 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 May 2017; treated at [facility] Irritable bowel syndrome Osteoporosis, unspecified Stroke ([facility]) Thoracic or lumbosacral neuritis or radiculitis, unspecified Unspecified constipation Constipation Current Outpatient Medications Medication Sig clopidogrel (PLAVIX) 75 mg tablet Take 1 tablet by mouth once daily. DULoxetine (CYMBALTA) 20 mg capsule Take 1 capsule by mouth once daily. rosuvastatin (CRESTOR) 5 mg tablet Take 1 tablet by mouth daily at bedtime. pantoprazole DR (PROTONIX) 40 mg tablet Take 1 tablet by mouth twice daily. Take on empty stomach, 1/2 hr before meal. sucralfate (CARAFATE) 1 gram tablet Take 1 tablet by mouth four times daily. Dissolve in 1 TBSP of water, before meals and at bedtime as directed (Patient not taking: No sig reported) scopolamine (TRANSDERM-SCOP) patch 1.5 mg/72 hr (1 mg over 3 days) Apply 1 Patch as directed every 72 hours. nitroglycerin sublingual (NITROQUICK) 0.4 mg SL tablet Dissolve 0.4mg tab (1tab) under tongue every 5min as needed for chest pain. If no response after max 3 tabs go to ED/notify doctor. fluticasone (FLONASE) 50 mcg/actuation nasal spray Use 1 [place] in each nostril once daily. For allergy season meclizine (ANTIVERT) 25 mg tab Take 2 tablets by mouth once daily as needed (dizziness/motion sickness). COMPOUNDED PRESCRIPTION Scopolamine 1.5 patch Apply first patch 4 hours to hairless area behind ear prior to travel then change every 72 hour while traveling polypodium leucotomos extract (HELIOCARE ORAL) Take by mouth. BIOTIN ORAL Take by mouth once daily. (Patient not taking: Reported on 01/12/2023) SENNOSIDES/DOCUSATE SODIUM (SENOKOT-S ORAL) Take by mouth once daily. (Patient not taking: Reported on 01/12/2023) aspirin, enteric coated (ASPIRIN, ENTERIC COATED) 81 mg EC tablet Take 1 tablet by mouth once daily. Cholecalciferol, Vitamin D3, 25 mcg (1,000 unit) cap Take 1,000 Units by mouth twice daily. ascorbic acid(VITAMIN C 500 MG TAB) Take one(1) tablet two(2) times daily. acetaminophen(TYLENOL ARTHRITIS PAIN 650 MG TAB) Take two(2) tablets twice daily. VITAMIN E 400IU SOFTGEL Take one(1) capsule twice daily. No current facility-administered medications for this visit. Review of Systems Objective BP 122/68 (BP Site: Left Arm, BP Position: Sitting, BP Cuff Size: Large Adult) Pulse 75 Temp 37.3 ?C (99.2 ?F) Resp 12 Ht 157.5 cm (5' 2 ) Wt 57.2 kg (126 lb) SpO2 98% BMI 23.05 kg/m? Last 5 Encounter Wt Readings: Date: Wt: 07/20/2023 57.2 kg (126 lb) 01/12/2023 55.3 kg (122 lb) 06/17/2022 56.7 kg (125 lb) 05/23/2022 56.7 kg (125 lb) 04/08/2022 56.2 kg (124 lb) No waist measurement recorded Estimated body mass index is 23.05 kg/m? as calculated from the following: Height as of this encounter: 157.5 cm (5' 2 ). Weight as of this encounter: 57.2 kg (126 lb). Last 5 Encounter BP Readings: Date: BP: 07/20/2023 122/68 07/13/2023 150/55 01/12/2023 142/72 07/07/2022 138/72 06/17/2022 155/67 Physical Exam Constitutional: Appearance: Normal appearance. HENT: Head: Normocephalic. Eyes: Conjunctiva/sclera: Conjunctivae normal. Cardiovascular: Rate and Rhythm: Normal rate and regular rhythm. Heart sounds: Normal heart sounds. Pulmonary: Effort: Pulmonary effort is normal. Breath sounds: Normal breath sounds. Musculoskeletal: Right lower leg: No edema. Left lower leg: No edema. Skin: General: Skin is warm and dry. Neurological: General: No focal deficit present. Mental Status: She is alert and oriented to person, place, and time. Psychiatric: Mood and Affect: Mood normal. Behavior: Behavior normal. Thought Content: Thought content normal. Judgment: Judgment normal. Component Latest Ref Rng AND Units 03/14/2022 07/07/2022 06/12/2023 Protein, Total 6.3 - 8.0 g/dL 7.0 6.8 6. (more content not included)... [facility] 07-20-2023 History of Presen t illness Narrative This note was created using [employer]. Subjective Radha Medina is a 83 year old female. Patient presents with: F/U 6 months: cholesterol SUBJECTIVE: Radha Medina is a 83 year old year old lady here today for 6 month follow up appointment for review of medical conditions. Gets achy and mostly takes Tylenol. If really bad, needs naproxen. Doing well on current meds. Noted that Crestor pill is really tiny. See assessment and plan for other issues addressed. PAST MEDICAL HISTORY Diagnosis Date CVA (cerebral vascular accident) (HCC) 06/02/2017 [facility] acute ischemic right posterior putamen stroke on MRI ASA, Plavix atorvastatin. Follow up with Dr. Witt scheduled. 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 May 2017; treated at [facility] Irritable bowel syndrome Osteoporosis, unspecified Stroke (HCC) Thoracic or lumbosacral neuritis or radiculitis, unspecified Unspecified constipation Constipation Current Outpatient Medications Medication Sig clopidogrel (PLAVIX) 75 mg tablet Take 1 tablet by mouth once daily. DULoxetine (CYMBALTA) 20 mg capsule Take 1 capsule by mouth once daily. rosuvastatin (CRESTOR) 5 mg tablet Take 1 tablet by mouth daily at bedtime. pantoprazole DR (PROTONIX) 40 mg tablet Take 1 tablet by mouth twice daily. Take on empty stomach, 1/2 hr before meal. sucralfate (CARAFATE) 1 gram tablet Take 1 tablet by mouth four times daily. Dissolve in 1 TBSP of water, before meals and at bedtime as directed (Patient not taking: No sig reported) scopolamine (TRANSDERM-SCOP) patch 1.5 mg/72 hr (1 mg over 3 days) Apply 1 Patch as directed every 72 hours. nitroglycerin sublingual (NITROQUICK) 0.4 mg SL tablet Dissolve 0.4mg tab (1tab) under tongue every 5min as needed for chest pain. If no response after max 3 tabs go to ED/notify doctor. fluticasone (FLONASE) 50 mcg/actuation nasal spray Use 1 [place] in each nostril once daily. For allergy season meclizine (ANTIVERT) 25 mg tab Take 2 tablets by mouth once daily as needed (dizziness/motion sickness). COMPOUNDED PRESCRIPTION Scopolamine 1.5 patch Apply first patch 4 hours to hairless area behind ear prior to travel then change every 72 hour while traveling polypodium leucotomos extract (HELIOCARE ORAL) Take by mouth. BIOTIN ORAL Take by mouth once daily. (Patient not taking: Reported on 01/12/2023) SENNOSIDES/DOCUSATE SODIUM (SENOKOT-S ORAL) Take by mouth once daily. (Patient not taking: Reported on 01/12/2023) aspirin, enteric coated (ASPIRIN, ENTERIC COATED) 81 mg EC tablet Take 1 tablet by mouth once daily. Cholecalciferol, Vitamin D3, 25 mcg (1,000 unit) cap Take 1,000 Units by mouth twice daily. ascorbic acid(VITAMIN C 500 MG TAB) Take one(1) tablet two(2) times daily. acetaminophen(TYLENOL ARTHRITIS PAIN 650 MG TAB) Take two(2) tablets twice daily. VITAMIN E 400IU SOFTGEL Take one(1) capsule twice daily. No current facility-administered medications for this visit. Review of Systems Objective BP 122/68 (BP Site: Left Arm, BP Position: Sitting, BP Cuff Size: Large Adult) Pulse 75 Temp 37.3 C (99.2 F) Resp 12 Ht 157.5 cm (5' 2 ) Wt 57.2 kg (126 lb) SpO2 98% BMI 23.05 kg/m Last 5 Encounter Wt Readings: Date: Wt: 07/20/2023 57.2 kg (126 lb) 01/12/2023 55.3 kg (122 lb) 06/17/2022 56.7 kg (125 lb) 05/23/2022 56.7 kg (125 lb) 04/08/2022 56.2 kg (124 lb) No waist measurement recorded Estimated body mass index is 23.05 kg/m as calculated from the following: Height as of this encounter: 157.5 cm (5' 2 ). Weight as of this encounter: 57.2 kg (126 lb). Last 5 Encounter BP Readings: Date: BP: 07/20/2023 122/68 07/13/2023 150/55 01/12/2023 142/72 07/07/2022 138/72 06/17/2022 155/67 Physical Exam Constitutional: Appearance: Normal appearance. HENT: Head: Normocephalic. Eyes: Conjunctiva/sclera: Conjunctivae normal. Cardiovascular: Rate and Rhythm: Normal rate and regular rhythm. Heart sounds: Normal heart sounds. Pulmonary: Effort: Pulmonary effort is normal. Breath sounds: Normal breath sounds. Musculoskeletal: Right lower leg: No edema. Left lower leg: No edema. Skin: General: Skin is warm and dry. Neurological: General: No focal deficit present. Mental Status: She is alert and oriented to person, place, and time. Psychiatric: Mood and Affect: Mood normal. Behavior: Behavior normal. Thought Content: Thought content normal. Judgment: Judgment normal. Component Latest Ref Rng & Units 03/14/2022 07/07/2022 06/12/2023 Protein, Total 6.3 - 8.0 g/dL 7.0 6.8 6.7 Albumin 3.9 - 4.9 g/dL 4.5 4.5 4.3 Calcium 8.5 - 10.2 mg/dL 9.2 9.1 9.0 Bilirubin, Total 0.2 - 1.3 mg/dL 0.3 0.3 0.3 Alkaline Phosphatase 34 - 123 U/L 82 132 (H) 79 AST 13 - 35 U/L 27 27 18 ALT 7 - 38 U/L 15 20 11 Glucose 74 - 99 mg/dL 88 99 91 BUN 7 - 21 mg/dL 15 19 17 Creatinine 0.58 - 0.96 mg/dL 0.63 0.58 0.65 Sodium 136 - 144 mmol/L 141 139 139 Potassium 3.7 - 5.1 mmol/L 4.1 3.5 (L) 3.9 Chloride 97 - 105 mmol/L 105 103 104 CO2 22 - 30 mmol/L 27 27 25 Anion Gap 9 - 18 mmol/L 9 9 10 eGFR >=60 mL/min/1.73m 90 92 89 WBC 3.70 - 11.00 k/uL 6.32 6.30 RBC 3.90 - 5.20 m/uL 4.03 4.17 Hemoglobin 11.5 - 15.5 g/dL 12.3 13.4 Hematocrit 36.0 - 46.0 % 39.5 40.6 MCV 80.0 - 100.0 fL 98.0 97.4 MCH 26.0 - 34.0 pg 30.5 32.1 MCHC 30.5 - 36.0 g/dL 31.1 33.0 RDW-CV 11.5 - 15.0 % 14.6 12.4 Platelet Count 150 - 400 k/uL 285 222 MPV 9.0 - 12.7 fL 9.7 8.8 (L) Absolute nRBC <0.01 k/uL <0.01 <0.01 Cholesterol, Total <200 mg/dL 134 142 Triglyceride <150 mg/dL 95 105 HDL Cholesterol >39 mg/dL 43 51 Non HDL Cholesterol <130 mg/dL 91 91 Fasting Time hrs 12 12 VLDL Cholesterol <30 mg/dL 19 21 TC:HDL Ratio <5.10 3.12 2.78 LDL Cholesterol <100 mg/dL 72 70 LDL:HDL Ratio <2.54 1.67 1.37 Magnesium 1.7 - 2.3 mg/dL 2.6 (H) 2.3 Vitamin D 25 Hydroxy 31.0 - 80.0 ng/mL 63.9 48.5 Assessment and Plan Encounter Diagnosis ICD-10-CM 1. Age-related osteoporosis without current pathological fracture M81.0 VITAMIN D 25 HYDROXY 2. Recurrent major depressive disorder, in full remission (HCC) F33.42 DULoxetine (CYMBALTA) 20 mg capsule 3. Hyperlipidemia, unspecified hyperlipidemia type E78.5 LIPID PANEL BASIC 4. Vitamin D deficiency E55.9 VITAMIN D 25 HYDROXY 5. Encounter for long-term current use of medication Z79.899 COMP METABOLIC PANEL CBC LIPID PANEL BASIC VITAMIN D 25 HYDROXY MAGNESIUM BLD 6. Encounter for immunization Z23 RSV PRINTED PHARMACY INSTRUCTIONS TDAP PRINTED PHARMACY INSTRUCTIONS 7. Asymptomatic postmenopausal status Z78.0 DXA-AXIAL SKELETON WITH VFA BD DXA TRABECULAR BONE SCORE (TBS) Above issues addressed with patient. Patient involved in shared decision making for management of medical issues. History and medications reviewed. Epic updated as needed Refills and/or prescriptions taken care of and meds adjusted as indicated after reviewed history, exam and labs. Health Maintenance reviewed. Updated record and/or ordered tests as recorded. Encouraged on efforts at healthy diet and regular exercise and adequate sleep. Continue present meds.Further evaluation and treatment as indicated. Reviewed that bone density needs follow up--was not done when ordered in 2020 (seems when Bone Density machine was getting [facility] Jonny Moon MD documented in this encounter [facility] 07-13-2023 Miscellaneous Notes 1st report of treatment/non oncology regimen. No assistance to support Reclast drug. No further assistance from FN at this time. documented in this encounter [facility] 07-13-2023 Miscellaneous Notes Order filed and appointment scheduled already documented in this encounter [facility] 07-08-2023 Miscellaneous Notes Spoke with pt and scheduled as directed Looks like there was another order when tried to file but cannot find another order anywhere else in records so filed this order Awaiting treatment orders. April Onofre LPN Patient calling to state she is due for her yearly Reclast Infusion. Asking if PCP would place treatment parameter orders so she can get this infusion scheduled soon? Pt states she has already completed labs needed prior to infusion. Please call pt with update. Thank you. documented in this encounter [facility] 06-11-2023 Note HNO ID: [id number] Author: Jonny Moon MD Service: ? Author Type: Physician Type: Progress Notes Filed: 06/11/2023 1:06 PM Note Text: I think I filed order Correct me if wrong [facility] 06-08-2023 Miscellaneous Notes Patient has been identified by name and date of : Yes Patient phones for refill(s): Requested Prescriptions Pending Prescriptions Disp Refills clopidogrel (PLAVIX) 75 mg tablet 30 tablet 11 Sig: Take 1 tablet by mouth once daily. Date of last office visit in primary care: 01/12/2023 Date of next office visit in primary care: 07/20/2023 Last 2 Encounter Wt Readings: Date: Wt: 01/12/2023 55.3 kg (122 lb) 06/17/2022 56.7 kg (125 lb) Please advise. Thank you. EVAN Vee. documented in this encounter [facility] 02-23-2023 Miscellaneous Notes The following approved medication requests have been transmitted electronically. Requested Prescriptions Signed Prescriptions Disp Refills DULoxetine (CYMBALTA) 20 mg capsule 30 capsule 5 Sig: Take 1 capsule by mouth once daily. Authorizing Provider: JONNY MOON MD Last office visit: 01/12/23 Next appointment scheduled: 07/20/23 Patient phones requesting refills as follows: Requested Prescriptions Pending Prescriptions Disp Refills DULoxetine (CYMBALTA) 20 mg capsule 30 capsule 5 Sig: Take 1 capsule by mouth once daily. Please review and advise. Donna Donis LPN documented in this encounter [facility] 01-12-2023 Note HNO ID: [id number] Author: Jonny Moon MD Service: ? Author Type: Physician Type: Progress Notes Filed: 02/10/2023 9:05 PM Note Text: This note was created using [employer]. Subjective Radha Medina is a 82 year old female. Patient presents with: F/U 6 months SUBJECTIVE: Radha Medina is a 82 year old year old lady here today for 6 month follow up appointment for review of medical conditions. Taking vitamins. Started taking extra calcium due to muscle cramps (feet, legs and hands) that gets so bad. Tried citracal 1200 mg sustained release twice daily. Already taking magnesium Has tried roll on Aspercream. This also helps for left knee DJD. Wonder if atorvastatin affecting taste (and smell) so wants to try something else. Considering seeing ENT. PAST MEDICAL HISTORY Diagnosis Date CVA (cerebral vascular accident) (HCC) 06/02/2017 [facility] acute ischemic right posterior putamen stroke on MRI ASA, Plavix atorvastatin. Follow up with Dr. Witt scheduled. 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 May 2017; treated at [facility] Irritable bowel syndrome Osteoporosis, unspecified Stroke (HCC) Thoracic or lumbosacral neuritis or radiculitis, unspecified Unspecified constipation Constipation Current Outpatient Medications Medication Sig pantoprazole DR (PROTONIX) 40 mg tablet Take 1 tablet by mouth twice daily. Take on empty stomach, 1/2 hr before meal. atorvastatin (LIPITOR) 20 mg tablet Take 1 tablet by mouth once daily. DULoxetine (CYMBALTA) 20 mg capsule Take 1 capsule by mouth once daily. clopidogrel (PLAVIX) 75 mg tablet Take 1 tablet by mouth once daily. sucralfate (CARAFATE) 1 gram tablet Take 1 tablet by mouth four times daily. Dissolve in 1 TBSP of water, before meals and at bedtime as directed (Patient not taking: Reported on 05/23/2022) scopolamine (TRANSDERM-SCOP) patch 1.5 mg/72 hr (1 mg over 3 days) Apply 1 Patch as directed every 72 hours. nitroglycerin sublingual (NITROQUICK) 0.4 mg SL tablet Dissolve 0.4mg tab (1tab) under tongue every 5min as needed for chest pain. If no response after max 3 tabs go to ED/notify doctor. fluticasone (FLONASE) 50 mcg/actuation nasal spray Use 1 [place] in each nostril once daily. For allergy season meclizine (ANTIVERT) 25 mg tab Take 2 tablets by mouth once daily as needed (dizziness/motion sickness). COMPOUNDED PRESCRIPTION Scopolamine 1.5 patch Apply first patch 4 hours to hairless area behind ear prior to travel then change every 72 hour while traveling polypodium leucotomos extract (HELIOCARE ORAL) Take by mouth. BIOTIN ORAL Take by mouth once daily. SENNOSIDES/DOCUSATE SODIUM (SENOKOT-S ORAL) Take by mouth once daily. aspirin, enteric coated (ASPIRIN, ENTERIC COATED) 81 mg EC tablet Take 1 tablet by mouth once daily. Cholecalciferol, Vitamin D3, 25 mcg (1,000 unit) cap Take 1,000 Units by mouth twice daily. ascorbic acid(VITAMIN C 500 MG TAB) Take one(1) tablet two(2) times daily. acetaminophen(TYLENOL ARTHRITIS PAIN 650 MG TAB) Take two(2) tablets twice daily. VITAMIN E 400IU SOFTGEL Take one(1) capsule twice daily. No current facility-administered medications for this visit. Review of Systems Objective BP 142/72 Pulse 72 Temp 37.1 ?C (98.7 ?F) Resp 18 Wt 55.3 kg (122 lb) SpO2 99% BMI 22.31 kg/m? Physical Exam Constitutional: Appearance: Normal appearance. HENT: Head: Normocephalic. Eyes: Conjunctiva/sclera: Conjunctivae normal. Cardiovascular: Rate and Rhythm: Normal rate and regular rhythm. Heart sounds: Normal heart sounds. Comments: trace pretibial lower leg swelling Pulmonary: Effort: Pulmonary effort is normal. Breath sounds: Normal breath sounds. Skin: General: Skin is warm and dry. Neurological: General: No focal deficit present. Mental Status: She is alert and oriented to person, place, and time. Psychiatric: Mood and Affect: Mood normal. Behavior: Behavior normal. Thought Content: Thought content normal. Judgment: Judgment normal. Last labs reviewed. Assessment and Plan Encounter Diagnosis ICD-10-CM 1. Recurrent major depressive disorder, in partial remission (HCC) [F33.41 (ICD-10-CM)] F33.41 Cymbalta also helps with anxiety 2. Vitamin D deficiency E55.9 VITAMIN D 25 HYDROXY 3. Loss of taste R43.2 4. Leg cramping R25.2 5. Hyperlipidemia, unspecified hyperlipidemia type E78.5 rosuvastatin (CRESTOR) 5 mg tablet LIPID PANEL BASIC 6. Gastroesophageal reflux disease without esophagitis K21.9 7. Encounter for long-term current use of medication Z79.899 COMP METABOLIC PANEL CBC MAGNESIUM BLD 8. 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, goodwin (more content not included)... [facility] 01-12-2023 Instructions Jonny Moon MD - 01/12/2023 3:44 PM EDT Consider Theraworx for leg cramps. documented in this encounter [facility] 01-12-2023 History of Presen t illness Narrative This note was created using [employer]. Subjective Radha Medina is a 82 year old female. Patient presents with: F/U 6 months SUBJECTIVE: Radha Medina is a 82 year old year old lady here today for 6 month follow up appointment for review of medical conditions. Taking vitamins. Started taking extra calcium due to muscle cramps (feet, legs and hands) that gets so bad. Tried citracal 1200 mg sustained release twice daily. Already taking magnesium Has tried roll on Aspercream. This also helps for left knee DJD. Wonder if atorvastatin affecting taste (and smell) so wants to try something else. Considering seeing ENT. PAST MEDICAL HISTORY Diagnosis Date CVA (cerebral vascular accident) (HCC) 06/02/2017 [facility] acute ischemic right posterior putamen stroke on MRI ASA, Plavix atorvastatin. Follow up with Dr. Witt scheduled. 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 May 2017; treated at [facility] Irritable bowel syndrome Osteoporosis, unspecified Stroke ([facility]) Thoracic or lumbosacral neuritis or radiculitis, unspecified Unspecified constipation Constipation Current Outpatient Medications Medication Sig pantoprazole DR (PROTONIX) 40 mg tablet Take 1 tablet by mouth twice daily. Take on empty stomach, 1/2 hr before meal. atorvastatin (LIPITOR) 20 mg tablet Take 1 tablet by mouth once daily. DULoxetine (CYMBALTA) 20 mg capsule Take 1 capsule by mouth once daily. clopidogrel (PLAVIX) 75 mg tablet Take 1 tablet by mouth once daily. sucralfate (CARAFATE) 1 gram tablet Take 1 tablet by mouth four times daily. Dissolve in 1 TBSP of water, before meals and at bedtime as directed (Patient not taking: Reported on 05/23/2022) scopolamine (TRANSDERM-SCOP) patch 1.5 mg/72 hr (1 mg over 3 days) Apply 1 Patch as directed every 72 hours. nitroglycerin sublingual (NITROQUICK) 0.4 mg SL tablet Dissolve 0.4mg tab (1tab) under tongue every 5min as needed for chest pain. If no response after max 3 tabs go to ED/notify doctor. fluticasone (FLONASE) 50 mcg/actuation nasal spray Use 1 [place] in each nostril once daily. For allergy season meclizine (ANTIVERT) 25 mg tab Take 2 tablets by mouth once daily as needed (dizziness/motion sickness). COMPOUNDED PRESCRIPTION Scopolamine 1.5 patch Apply first patch 4 hours to hairless area behind ear prior to travel then change every 72 hour while traveling polypodium leucotomos extract (HELIOCARE ORAL) Take by mouth. BIOTIN ORAL Take by mouth once daily. SENNOSIDES/DOCUSATE SODIUM (SENOKOT-S ORAL) Take by mouth once daily. aspirin, enteric coated (ASPIRIN, ENTERIC COATED) 81 mg EC tablet Take 1 tablet by mouth once daily. Cholecalciferol, Vitamin D3, 25 mcg (1,000 unit) cap Take 1,000 Units by mouth twice daily. ascorbic acid(VITAMIN C 500 MG TAB) Take one(1) tablet two(2) times daily. acetaminophen(TYLENOL ARTHRITIS PAIN 650 MG TAB) Take two(2) tablets twice daily. VITAMIN E 400IU SOFTGEL Take one(1) capsule twice daily. No current facility-administered medications for this visit. Review of Systems Objective BP 142/72 Pulse 72 Temp 37.1 C (98.7 F) Resp 18 Wt 55.3 kg (122 lb) SpO2 99% BMI 22.31 kg/m Physical Exam Constitutional: Appearance: Normal appearance. HENT: Head: Normocephalic. Eyes: Conjunctiva/sclera: Conjunctivae normal. Cardiovascular: Rate and Rhythm: Normal rate and regular rhythm. Heart sounds: Normal heart sounds. Comments: trace pretibial lower leg swelling Pulmonary: Effort: Pulmonary effort is normal. Breath sounds: Normal breath sounds. Skin: General: Skin is warm and dry. Neurological: General: No focal deficit present. Mental Status: She is alert and oriented to person, place, and time. Psychiatric: Mood and Affect: Mood normal. Behavior: Behavior normal. Thought Content: Thought content normal. Judgment: Judgment normal. Last labs reviewed. Assessment and Plan Encounter Diagnosis ICD-10-CM 1. Recurrent major depressive disorder, in partial remission (HCC) [F33.41 (ICD-10-CM)] F33.41 Cymbalta also helps with anxiety 2. Vitamin D deficiency E55.9 VITAMIN D 25 HYDROXY 3. Loss of taste R43.2 4. Leg cramping R25.2 5. Hyperlipidemia, unspecified hyperlipidemia type E78.5 rosuvastatin (CRESTOR) 5 mg tablet LIPID PANEL BASIC 6. Gastroesophageal reflux disease without esophagitis K21.9 7. Encounter for long-term current use of medication Z79.899 COMP METABOLIC PANEL CBC MAGNESIUM BLD 8. 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, subsequent encounter M80.00XG zoledronic acid 5 mg PREMIX piggyback (RECLAST) Above issues addressed with patient. Patient involved in shared decision making for management of medical issues. History and medications reviewed. Epic updated as needed Refills and/or prescriptions taken care of and meds adjusted as indicated after reviewed history, exam and labs. Health Maintenance reviewed. Updated record and/or ordered tests as recorded. Encouraged on efforts at healthy diet and regular exercise and adequate sleep. Jonny Moon MD documented in this encounter [facility] 12-17-2022 Miscellaneous Notes Last office visit: 05/23/22 Next appointment scheduled: 01/12/23 Patient phones requesting refills as follows: Requested Prescriptions Pending Prescriptions Disp Refills pantoprazole DR (PROTONIX) 40 mg tablet 60 tablet 11 Sig: Take 1 tablet by mouth twice daily. Take on empty stomach, 1/2 hr before meal. Please review and advise. Donna Donis LPN documented in this encounter [facility] 12-02-2022 Miscellaneous Notes Last office visit: 05/23/22 Next appointment scheduled: 01/12/23 Last labs: 03/14/22 last LIPID Patient phones requesting refills as follows: Requested Prescriptions Pending Prescriptions Disp Refills atorvastatin (LIPITOR) 20 mg tablet 30 tablet 11 Sig: Take 1 tablet by mouth once daily. Please review and advise. Donna Donis LPN documented in this encounter [facility] 09-01-2022 Miscellaneous Notes BLANCA: 05/23/2022 Last refill: 07/04/2022 QTY: 30 Refills: 1 Patient has been identified by name and date of : Yes Requested Prescriptions Pending Prescriptions Disp Refills DULoxetine (CYMBALTA) 20 mg capsule 30 capsule 5 Sig: Take 1 capsule by mouth once daily. RX INSTRUCTIONS: Please send today. She requested refills. Patient aware RX will be sent to pharmacy. No need to notify patient. Marcia Bradley Pss documented in this encounter [facility] 07-07-2022 Miscellaneous Notes Completed. PSS - please add lab appt on for 2:30 today (stat CMP)- patient is aware to come in at 2:30 for labs and 3:30 for treatment. documented in this encounter [facility] 06-17-2022 Nurse Note Denies itching, alert and oriented, abdomen is described as 'sore' only. Reviewed followup appointment time and date with patient. Patient awoke easily with verbal stimuli, denies itching at this time, reports abdomen is just sore in general, not a specific area, not cramping at this time. Will proceed with juice and snack at this time. Dr Morse in room to review results of procedure with patient, she opens eyes, answers his questions, Reports her abdominal pain is general abdomen area, is a 4 on scale of 1 to 10, warm blanket applied to abdomen. Continues to rest comfortably at this time. Arrived in phase II via cart left lateral position, eyes closed, skin warm and dry, eyes open to gentle tactile stimuli, respirations regular and unlabored. Abdomen is slightly distended, grimaces to light palpation of abdomen. Too drowsy at this time to specify exactly where pain is. Continues to rest on left side comfortably. documented in this encounter [facility] 06-17-2022 History and physical note Images from the original note were not included. HISTORY AND PHYSICAL Radha Medina 1940 REFERRING PHYSICIAN: Sandi Lara APRN.INSPECTOR AND [employer]ER CHIEF COMPLAINT: Consult (GERD, constipation, bloating) HPI: The patient is a 82 year old female referred for endoscopy. Radha notes a 1-year history of abdominal complaints. She describes that she bloats almost immediately after eating, regardless of food type, and this sometimes will last for hours. Notes upper abdominal discomfort worse on the right side. Notes constipation which is not improved with fiber or miralax. Has tried carafate for her stomach issues but states has trouble tolerating the texture of this. She notes a weight loss of about 10 lbs and overall decreased energy. Notes family history of stomach cancer-father. Denies blood in stools, dark stools, nausea or vomiting. Radha has undergone prior endoscopy. Last EGD and colonoscopy were performed in [place] [address] Jackson. Patient's past medical history is significant for CVA, IBS, radiculitis. Patient follows with Dr. Moon in primary care. Patient denies chest pain, shortness of breath or recent hospitalizations. Denies problems with sedation in the past. PAST MEDICAL HISTORY PAST MEDICAL HISTORY Diagnosis Date CVA (cerebral vascular accident) (HCC) 06/02/2017 [facility] acute ischemic right posterior putamen stroke on MRI ASA, Plavix atorvastatin. Follow up with Dr. Witt scheduled. 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 May 2017; treated at [facility] Irritable bowel syndrome Osteoporosis, unspecified Thoracic or lumbosacral neuritis or radiculitis, unspecified Unspecified constipation Constipation PAST SURGICAL HISTORY PAST SURGICAL HISTORY Procedure Laterality Date COLONOSCOPY W/BIOPSY SINGLE/MULTIPLE 02/08/13 normal appearing DILATION & CURETTAGE DX&/THER NONOBSTETRIC Dilation & curettage EGD TRANSORAL BIOPSY SINGLE/MULTIPLE 02/08/13 duodenitis, gastritis LIG/TRNSXJ FLP TUBE ABDL/VAG APPR UNI/BI Tubal ligation TONSILLECTOMY PRIMARY/SECONDARY <AGE 12 Tonsillectomy CURRENT MEDICATIONS Current Outpatient Medications Medication Sig sucralfate (CARAFATE) 1 gram tablet Take 1 tablet by mouth four times daily. Dissolve in 1 TBSP of water, before meals and at bedtime as directed pantoprazole DR (PROTONIX) 40 mg tablet Take 1 tablet by mouth twice daily. Take on empty stomach, 1/2 hr before meal. venlafaxine ER (EFFEXOR XR) 75 mg 24 hr capsule Take 1 capsule by mouth once daily. atorvastatin (LIPITOR) 20 mg tablet Take 1 tablet by mouth once daily. clopidogrel (PLAVIX) 75 mg tablet Take 1 tablet by mouth once daily. scopolamine (TRANSDERM-SCOP) patch 1.5 mg/72 hr (1 mg over 3 days) Apply 1 Patch as directed every 72 hours. nitroglycerin sublingual (NITROQUICK) 0.4 mg SL tablet Dissolve 0.4mg tab (1tab) under tongue every 5min as needed for chest pain. If no response after max 3 tabs go to ED/notify doctor. fluticasone (FLONASE) 50 mcg/actuation nasal spray Use 1 [place] in each nostril once daily. For allergy season meclizine (ANTIVERT) 25 mg tab Take 2 tablets by mouth once daily as needed (dizziness/motion sickness). COMPOUNDED PRESCRIPTION Scopolamine 1.5 patch Apply first patch 4 hours to hairless area behind ear prior to travel then change every 72 hour while traveling polypodium leucotomos extract (HELIOCARE ORAL) Take by mouth. BIOTIN ORAL Take by mouth once daily. SENNOSIDES/DOCUSATE SODIUM (SENOKOT-S ORAL) Take by mouth once daily. aspirin, enteric coated (ASPIRIN, ENTERIC COATED) 81 mg EC tablet Take 1 tablet by mouth once daily. Cholecalciferol, Vitamin D3, 25 mcg (1,000 unit) cap Take 1,000 Units by mouth twice daily. ascorbic acid(VITAMIN C 500 MG TAB) Take one(1) tablet two(2) times daily. acetaminophen(TYLENOL ARTHRITIS PAIN 650 MG TAB) Take two(2) tablets twice daily. VITAMIN E 400IU SOFTGEL Take one(1) capsule twice daily. cyclobenzaprine (FLEXERIL) 10 mg tablet Take 1 tablet by mouth three times daily as needed for muscle spasm. NAPROXEN (NAPROSYN ORAL) Take by mouth as needed. No current facility-administered medications for this visit. ALLERGIES: Fentanyl, Codeine, and Penicillins PERSONAL HISTORY: SOCIAL HISTORY Social History Tobacco Use Smoking status: Never Smokeless tobacco: Never Vaping Use Vaping Use: Never used Substance Use Topics Alcohol use: No Drug use: No FAMILY HISTORY: FAMILY HISTORY FAMILY HISTORY Problem Relation Age of Onset Cancer Father stomach Heart Father REVIEW OF SYMPTOMS: The review of systems data was entered by the nurse and reviewed by [place] Nursing Notes: Darlin Dupree LPN 04/08/2022 2:51 PM Signed REVIEW OF SYSTEMS: General: The patient denies fatigue, notes weight loss, denies weight gain, denies feeling hot, and denies feelings of cold. Eyes: The patient denies glaucoma, notes eye injury/surgery, does not wear glasses or contacts. Ear/Nose/Throat: The patient notes allergies, notes hayfever, denies ear infections, and denies bloody noses. Cardiovascular: The patient denies chest pain, denies heart disease, denies high blood pressure,denies cardiac stent, denies prior heart attack, denies irregular heart beat, denies high cholesterol, denies poor circulation, denies heart failure, other cardiac issues, notes claudication, denies cold feet, denies peripheral arterial stent. Respiratory: The patient denies tuberculosis, denies pneumonia, denies frequent cough, denies pulmonary embolism, denies shortness of breath, and denies coughing up blood. Gastrointestinal: The patient denies difficulty swallowing, denies acid reflux, denies ulcers, denies vomiting, denies jaundice/hepatitis, denies gallbladder problems, denies black or tarry stools, denies hemorrhoids, denies bleeding from rectum, denies diverticulitis, notes constipation, denies diarrhea, denies loss of stool control, and denies hernias. Kidney/Bladder: The patient denies kidney stones, denies urine infections, and denies bloody urine. Skin: The patient denies a history of skin cancer, denies bleeding/changing moles, and denies a history of skin rash. Neurologic: The patient denies a history of epilepsy/convulsions, denies headaches, denies head/spinal injuries, and notes stroke/TIA. Psychiatric: The patient denies psychiatric medications, denies depression, and denies voices, denies substance abuse. Endocrine: The patient denies thyroid disorders, denies diabetes, and denies hormonal problems. Hematologic: The patient notes a history of bruising, denies bleeding, and denies anemia, denies blood clots. Infections: The patient denies a history of measles and mumps, denies rheumatic fever, and denies sexually transmitted diseases. Musculoskeletal: The patient notes back pain/injury, denies back problems, denies sciatica, denies knee/foot trouble, denies arthritis, or denies gout. When was patient's last Mammogram screening Last Colonoscopy: 2012 Darlin Dupree LPN I have confirmed and edited as necessary, the PFSH and ROS obtained by others. Desiree Huang PA-C PHYSICAL EXAMINATION: General: The patient is 82 year old female, well nourished, well hydrated in no acute distress. The patient is oriented to time, place, and person. VITALS: Blood pressure 132/62, pulse 87, temperature 36.7 C (98 F), height 157.5 cm (5' 2 ), weight 56.2 kg (124 lb), SpO2 97 %. Body mass index is 22.68 kg/m . HEENT: Normal cephalic, ataumatic, pupils are equally round, sclera are anicteric, mucous membranes are moist, oropharynx is clear. Neck has no masses, asymmetry or lymphadenopathy. Respiratory: Clear to auscultation and percussion. Normal respiratory excursion and pattern. Cardiac: Examination is regular rate and rhythm. Normal S1/S2 Abdominal exam: Soft, nontender, with no palpable masses. No hepatosplenomegaly. No palpable hernias. Extremities: no clubbing, cyanosis or edema. No adenopathy. LABORATORY VALUES: As Noted RADIOLOGIC STUDIES: As Noted Assessment IMPRESSION: change in bowel habits, constipation, upper abdominal pain, decreased energy PLAN: I have reviewed my findings with the surgeon. Will plan for upper and lower endoscopy. We discussed the risks and benefits of the planned endoscopy. I have informed the patient that complications can occur including failure to complete the endoscopy and perforation. The patient had the opportunity to ask questions concerning the planned endoscopy. My staff has also explained the procedure to the patient in understandable terms and has given the patient printed material concerning the procedure. The patient freely consents to surgery. The patient was offered a surgery/procedure at a [facility] facility. I have counseled the patient regarding the risk of exposure to and/or potential harm posed by the COVID-19 virus with having a surgery/procedure at this time versus the risk of delaying the surgery/procedure. It is not possible to know either the risk of delaying the surgery or procedure or chance of getting an infection with perfect accuracy, but a joint decision was made between the patient and myself to proceed at this time with endoscopy. I plan to use Golytely bowel preparation. OK to split over 2 days and will also plan for 2 days of clear liquid diet Patient to remain on anticoagulation for procedure Diagnoses: (R10.84) Abdominal discomfort, generalized (primary encounter diagnosis) (K21.9) Gastroesophageal reflux disease without esophagitis (K59.00) Constipation, unspecified constipation type (R53.83) Decreased energy (R19.4) Change in bowel habits Consultation requested by Sandi Lara CNP or an opinion regarding abdominal complaints. My final recommendations will be communicated back to the requesting physician by way of shared Medical record or letter to requesting physician via US mail. Desiree Huang PA-C documented in this encounter [facility] 06-09-2022 Miscellaneous Notes Please schedule reclast infustion, she has an active order. documented in this encounter [facility] 05-23-2022 Instructions Jonny Moon MD - 05/23/2022 3:25 PM EDT May stop Effexor and start Cymbalta but if any issues feeling like not enough med, can overlap Effexor and Cymbalta for 3 to 7 days. documented in this encounter [facility] 05-23-2022 History of Presen t illness Narrative This note was created using [employer]. Subjective Radha Medina is a 82 year old female. Patient presents with: F/U 6 months SUBJECTIVE: Radha Medina is a 82 year old year old lady here today for 6 month follow up appointment for review of medical conditions. Gets pain now with particular activities since had kyphoplasty. Not a constant pain. Reads a lot more. Decreased ambition. Would like to try another antidepressant. Will have colonoscopy June 17 for follow up on stomach issues. ?had shingles vaccine 8 to 9 years ago. Plans to to get Booster at Pharmacy for Moderna. PAST MEDICAL HISTORY Diagnosis Date CVA (cerebral vascular accident) (HCC) 06/02/2017 [facility] acute ischemic right posterior putamen stroke on MRI ASA, Plavix atorvastatin. Follow up with Dr. Witt scheduled. 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 May 2017; treated at [facility] Irritable bowel syndrome Osteoporosis, unspecified Thoracic or lumbosacral neuritis or radiculitis, unspecified Unspecified constipation Constipation Current Outpatient Medications Medication Sig pantoprazole DR (PROTONIX) 40 mg tablet Take 1 tablet by mouth twice daily. Take on empty stomach, 1/2 hr before meal. venlafaxine ER (EFFEXOR XR) 75 mg 24 hr capsule Take 1 capsule by mouth once daily. atorvastatin (LIPITOR) 20 mg tablet Take 1 tablet by mouth once daily. clopidogrel (PLAVIX) 75 mg tablet Take 1 tablet by mouth once daily. scopolamine (TRANSDERM-SCOP) patch 1.5 mg/72 hr (1 mg over 3 days) Apply 1 Patch as directed every 72 hours. nitroglycerin sublingual (NITROQUICK) 0.4 mg SL tablet Dissolve 0.4mg tab (1tab) under tongue every 5min as needed for chest pain. If no response after max 3 tabs go to ED/notify doctor. fluticasone (FLONASE) 50 mcg/actuation nasal spray Use 1 [place] in each nostril once daily. For allergy season meclizine (ANTIVERT) 25 mg tab Take 2 tablets by mouth once daily as needed (dizziness/motion sickness). COMPOUNDED PRESCRIPTION Scopolamine 1.5 patch Apply first patch 4 hours to hairless area behind ear prior to travel then change every 72 hour while traveling polypodium leucotomos extract (HELIOCARE ORAL) Take by mouth. BIOTIN ORAL Take by mouth once daily. SENNOSIDES/DOCUSATE SODIUM (SENOKOT-S ORAL) Take by mouth once daily. aspirin, enteric coated (ASPIRIN, ENTERIC COATED) 81 mg EC tablet Take 1 tablet by mouth once daily. Cholecalciferol, Vitamin D3, 25 mcg (1,000 unit) cap Take 1,000 Units by mouth twice daily. ascorbic acid(VITAMIN C 500 MG TAB) Take one(1) tablet two(2) times daily. acetaminophen(TYLENOL ARTHRITIS PAIN 650 MG TAB) Take two(2) tablets twice daily. VITAMIN E 400IU SOFTGEL Take one(1) capsule twice daily. sucralfate (CARAFATE) 1 gram tablet Take 1 tablet by mouth four times daily. Dissolve in 1 TBSP of water, before meals and at bedtime as directed (Patient not taking: Reported on 05/23/2022) No current facility-administered medications for this visit. Review of Systems Objective BP 142/78 Pulse 81 Wt 56.7 kg (125 lb) SpO2 97% BMI 22.86 kg/m Last 5 Encounter Wt Readings: Date: Wt: 05/23/2022 56.7 kg (125 lb) 04/08/2022 56.2 kg (124 lb) 01/14/2022 58.1 kg (128 lb) 12/03/2021 59.2 kg (130 lb 9.6 oz) 11/18/2021 61.7 kg (136 lb) No waist measurement recorded Estimated body mass index is 22.86 kg/m as calculated from the following: Height as of 04/08/22: 157.5 cm (5' 2 ). Weight as of this encounter: 56.7 kg (125 lb). Last 5 Encounter BP Readings: Date: BP: 05/23/2022 142/78 04/08/2022 132/62 01/14/2022 136/82 12/03/2021 126/78 11/18/2021 128/82 Physical Exam Constitutional: Appearance: Normal appearance. HENT: Head: Normocephalic. Eyes: Conjunctiva/sclera: Conjunctivae normal. Cardiovascular: Rate and Rhythm: Normal rate and regular rhythm. Heart sounds: Normal heart sounds. Pulmonary: Effort: Pulmonary effort is normal. Breath sounds: Normal breath sounds. Skin: General: Skin is warm and dry. Neurological: General: No focal deficit present. Mental Status: She is alert and oriented to person, place, and time. Psychiatric: Attention and Perception: Attention and perception normal. Mood and Affect: Mood normal. Speech: Speech normal. Behavior: Behavior normal. Thought Content: Thought content normal. Cognition and Memory: Cognition and memory normal. Judgment: Judgment normal. Component Latest Ref Rng & Units 05/03/2021 03/14/2022 Protein, Total 6.3 - 8.0 g/dL 7.2 7.0 Albumin 3.9 - 4.9 g/dL 4.6 4.5 Calcium 8.5 - 10.2 mg/dL 9.5 9.2 Bilirubin, Total 0.2 - 1.3 mg/dL 0.3 0.3 Alkaline Phosphatase 34 - 123 U/L 73 82 AST 13 - 35 U/L 22 27 Glucose 74 - 99 mg/dL 84 88 BUN 7 - 21 mg/dL 16 15 Creatinine 0.58 - 0.96 mg/dL 0.63 0.63 Sodium 136 - 144 mmol/L 140 141 Potassium 3.7 - 5.1 mmol/L 4.2 4.1 Chloride 97 - 105 mmol/L 105 105 CO2 22 - 30 mmol/L 26 27 Anion Gap 9 - 18 mmol/L 9 9 ALT 7 - 38 U/L 18 15 eGFR- >60 eGFR-All Other Races . >60 eGFR >=60 mL/min/1.73m 90 WBC 3.70 - 11.00 k/uL 6.52 6.32 RBC 3.90 - 5.20 m/uL 3.96 4.03 Hemoglobin 11.5 - 15.5 g/dL 12.2 12.3 Hematocrit 36.0 - 46.0 % 39.6 39.5 MCV 80.0 - 100.0 fL 100.0 98.0 MCH 26.0 - 34.0 pg 30.8 30.5 MCHC 30.5 - 36.0 g/dL 30.8 31.1 RDW-CV 11.5 - 15.0 % 13.1 14.6 Platelet Count 150 - 400 k/uL 305 285 MPV 9.0 - 12.7 fL 10.5 9.7 Absolute nRBC <0.01 k/uL <0.01 <0.01 Cholesterol, Total <200 mg/dL 140 134 Triglyceride <150 mg/dL 83 95 HDL Cholesterol >39 mg/dL 48 43 LDL Cholesterol <100 mg/dL 75 72 Non HDL Cholesterol <130 mg/dL 92 91 Fasting Time hrs 12 12 VLDL Cholesterol <30 mg/dL 17 19 TC:HDL Ratio <5.10 2.92 3.12 LDL:HDL Ratio <2.54 1.56 1.67 Magnesium 1.7 - 2.3 mg/dL 2.3 2.6 (H) Vitamin D 25 Hydroxy 31.0 - 80.0 ng/mL 45.5 63.9 Assessment and Plan Encounter Diagnosis ICD-10-CM 1. 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, subsequent encounter M80.00XG zoledronic acid 5 mg PREMIX piggyback (RECLAST) 2. Recurrent major depressive disorder, in remission (HCC) F33.40 3. Vitamin D deficiency E55.9 4. Encounter for immunization Z23 INFLUENZA SEASONAL QUADRIVALENT HIGH DOSE AGE 65+ Above issues addressed with patient. Patient involved in shared decision making for management of medical issues. History and medications reviewed. Epic updated as needed Refills and/or prescriptions taken care of and meds adjusted as indicated after reviewed history, exam and labs. Health Maintenance reviewed. Updated record and/or ordered tests as recorded. Encouraged on efforts at healthy diet and regular exercise and adequate sleep. Jonny Moon MD documented in this encounter [facility] 04-09-2022 History of Presen t illness Narrative HISTORY AND PHYSICAL Radha Medina 1940 REFERRING PHYSICIAN: Sandi Lara APRN.INSPECTOR AND [employer]LOADER CHIEF COMPLAINT: Consult (GERD, constipation, bloating) HPI: The patient is a 82 year old female referred for endoscopy. Radha notes a 1-year history of abdominal complaints. She describes that she bloats almost immediately after eating, regardless of food type, and this sometimes will last for hours. Notes upper abdominal discomfort worse on the right side. Notes constipation which is not improved with fiber or miralax. Has tried carafate for her stomach issues but states has trouble tolerating the texture of this. She notes a weight loss of about 10 lbs and overall decreased energy. Notes family history of stomach cancer-father. Denies blood in stools, dark stools, nausea or vomiting. Radha has undergone prior endoscopy. Last EGD and colonoscopy were performed in February [address] Jackson. Patient's past medical history is significant for CVA, IBS, radiculitis. Patient follows with Dr. Moon in primary care. Patient denies chest pain, shortness of breath or recent hospitalizations. Denies problems with sedation in the past. PAST MEDICAL HISTORY Diagnosis Date CVA (cerebral vascular accident) (HCC) 06/02/2017 [facility] acute ischemic right posterior putamen stroke on MRI ASA, Plavix atorvastatin. Follow up with Dr. Witt scheduled. 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 May 2017; treated at [facility] Irritable bowel syndrome Osteoporosis, unspecified Thoracic or lumbosacral neuritis or radiculitis, unspecified Unspecified constipation Constipation PAST SURGICAL HISTORY Procedure Laterality Date COLONOSCOPY W/BIOPSY SINGLE/MULTIPLE 02/08/13 normal appearing DILATION & CURETTAGE DX&/THER NONOBSTETRIC Dilation & curettage EGD TRANSORAL BIOPSY SINGLE/MULTIPLE 02/08/13 duodenitis, gastritis LIG/TRNSXJ FLP TUBE ABDL/VAG APPR UNI/BI Tubal ligation TONSILLECTOMY PRIMARY/SECONDARY <AGE 14 Tonsillectomy Current Outpatient Medications Medication Sig sucralfate (CARAFATE) 1 gram tablet Take 1 tablet by mouth four times daily. Dissolve in 1 TBSP of water, before meals and at bedtime as directed pantoprazole DR (PROTONIX) 40 mg tablet Take 1 tablet by mouth twice daily. Take on empty stomach, 1/2 hr before meal. venlafaxine ER (EFFEXOR XR) 75 mg 24 hr capsule Take 1 capsule by mouth once daily. atorvastatin (LIPITOR) 20 mg tablet Take 1 tablet by mouth once daily. clopidogrel (PLAVIX) 75 mg tablet Take 1 tablet by mouth once daily. scopolamine (TRANSDERM-SCOP) patch 1.5 mg/72 hr (1 mg over 3 days) Apply 1 Patch as directed every 72 hours. nitroglycerin sublingual (NITROQUICK) 0.4 mg SL tablet Dissolve 0.4mg tab (1tab) under tongue every 5min as needed for chest pain. If no response after max 3 tabs go to ED/notify doctor. fluticasone (FLONASE) 50 mcg/actuation nasal spray Use 1 [place] in each nostril once daily. For allergy season meclizine (ANTIVERT) 25 mg tab Take 2 tablets by mouth once daily as needed (dizziness/motion sickness). COMPOUNDED PRESCRIPTION Scopolamine 1.5 patch Apply first patch 4 hours to hairless area behind ear prior to travel then change every 72 hour while traveling polypodium leucotomos extract (HELIOCARE ORAL) Take by mouth. BIOTIN ORAL Take by mouth once daily. SENNOSIDES/DOCUSATE SODIUM (SENOKOT-S ORAL) Take by mouth once daily. aspirin, enteric coated (ASPIRIN, ENTERIC COATED) 81 mg EC tablet Take 1 tablet by mouth once daily. Cholecalciferol, Vitamin D3, 25 mcg (1,000 unit) cap Take 1,000 Units by mouth twice daily. ascorbic acid(VITAMIN C 500 MG TAB) Take one(1) tablet two(2) times daily. acetaminophen(TYLENOL ARTHRITIS PAIN 650 MG TAB) Take two(2) tablets twice daily. VITAMIN E 400IU SOFTGEL Take one(1) capsule twice daily. cyclobenzaprine (FLEXERIL) 10 mg tablet Take 1 tablet by mouth three times daily as needed for muscle spasm. NAPROXEN (NAPROSYN ORAL) Take by mouth as needed. No current facility-administered medications for this visit. ALLERGIES: Fentanyl, Codeine, and Penicillins PERSONAL HISTORY: Social History Tobacco Use Smoking status: Never Smokeless tobacco: Never Vaping Use Vaping Use: Never used Substance Use Topics Alcohol use: No Drug use: No FAMILY HISTORY: FAMILY HISTORY Problem Relation Age of Onset Cancer Father stomach Heart Father REVIEW OF SYMPTOMS: The review of systems data was entered by the nurse and reviewed by me Nursing Notes: Darlin DupreeANDREW 04/08/2022 2:51 PM Signed REVIEW OF SYSTEMS: General: The patient denies fatigue, notes weight loss, denies weight gain, denies feeling hot, and denies feelings of cold. Eyes: The patient denies glaucoma, notes eye injury/surgery, does not wear glasses or contacts. Ear/Nose/Throat: The patient notes allergies, notes hayfever, denies ear infections, and denies bloody noses. Cardiovascular: The patient denies chest pain, denies heart disease, denies high blood pressure,denies cardiac stent, denies prior heart attack, denies irregular heart beat, denies high cholesterol, denies poor circulation, denies heart failure, other cardiac issues, notes claudication, denies cold feet, denies peripheral arterial stent. Respiratory: The patient denies tuberculosis, denies pneumonia, denies frequent cough, denies pulmonary embolism, denies shortness of breath, and denies coughing up blood. Gastrointestinal: The patient denies difficulty swallowing, denies acid reflux, denies ulcers, denies vomiting, denies jaundice/hepatitis, denies gallbladder problems, denies black or tarry stools, denies hemorrhoids, denies bleeding from rectum, denies diverticulitis, notes constipation, denies diarrhea, denies loss of stool control, and denies hernias. Kidney/Bladder: The patient denies kidney stones, denies urine infections, and denies bloody urine. Skin: The patient denies a history of skin cancer, denies bleeding/changing moles, and denies a history of skin rash. Neurologic: The patient denies a history of epilepsy/convulsions, denies headaches, denies head/spinal injuries, and notes stroke/TIA. Psychiatric: The patient denies psychiatric medications, denies depression, and denies voices, denies substance abuse. Endocrine: The patient denies thyroid disorders, denies diabetes, and denies hormonal problems. Hematologic: The patient notes a history of bruising, denies bleeding, and denies anemia, denies blood clots. Infections: The patient denies a history of measles and mumps, denies rheumatic fever, and denies sexually transmitted diseases. Musculoskeletal: The patient notes back pain/injury, denies back problems, denies sciatica, denies knee/foot trouble, denies arthritis, or denies gout. When was patient's last Mammogram screening Last Colonoscopy: 2012 Darlin Dupree LPN I have confirmed and edited as necessary, the PFSH and ROS obtained by others. Desiree Huang PA-C PHYSICAL EXAMINATION: General: The patient is 82 year old female, well nourished, well hydrated in no acute distress. The patient is oriented to time, place, and person. VITALS: Blood pressure 132/62, pulse 87, temperature 36.7 C (98 F), height 157.5 cm (5' 2 ), weight 56.2 kg (124 lb), SpO2 97 %. Body mass index is 22.68 kg/m . HEENT: Normal cephalic, ataumatic, pupils are equally round, sclera are anicteric, mucous membranes are moist, oropharynx is clear. Neck has no masses, asymmetry or lymphadenopathy. Respiratory: Clear to auscultation and percussion. Normal respiratory excursion and pattern. Cardiac: Examination is regular rate and rhythm. Normal S1/S2 Abdominal exam: Soft, nontender, with no palpable masses. No hepatosplenomegaly. No palpable hernias. Extremities: no clubbing, cyanosis or edema. No adenopathy. LABORATORY VALUES: As Noted RADIOLOGIC STUDIES: As Noted Assessment IMPRESSION: change in bowel habits, constipation, upper abdominal pain, decreased energy PLAN: I have reviewed my findings with the surgeon. Will plan for upper and lower endoscopy. We discussed the risks and benefits of the planned endoscopy. I have informed the patient that complications can occur including failure to complete the endoscopy and perforation. The patient had the opportunity to ask questions concerning the planned endoscopy. My staff has also explained the procedure to the patient in understandable terms and has given the patient printed material concerning the procedure. The patient freely consents to surgery. The patient was offered a surgery/procedure at a [facility]. I have counseled the patient regarding the risk of exposure to and/or potential harm posed by the COVID-19 virus with having a surgery/procedure at this time versus the risk of delaying the surgery/procedure. It is not possible to know either the risk of delaying the surgery or procedure or chance of getting an infection with perfect accuracy, but a joint decision was made between the patient and myself to proceed at this time with endoscopy. I plan to use Golytely bowel preparation. OK to split over 2 days and will also plan for 2 days of clear liquid diet Patient to remain on anticoagulation for procedure Diagnoses: (R10.84) Abdominal discomfort, generalized (primary encounter diagnosis) (K21.9) Gastroesophageal reflux disease without esophagitis (K59.00) Constipation, unspecified constipation type (R53.83) Decreased energy (R19.4) Change in bowel habits Consultation requested by Sandi Lara CNP or an opinion regarding abdominal complaints. My final recommendations will be communicated back to the requesting physician by way of shared Medical record or letter to requesting physician via US mail. Desiree Huang PA-C documented in this encounter [facility] 04-08-2022 Nurse Note REVIEW OF SYSTEMS: General: The patient denies fatigue, notes weight loss, denies weight gain, denies feeling hot, and denies feelings of cold. Eyes: The patient denies glaucoma, notes eye injury/surgery, does not wear glasses or contacts. Ear/Nose/Throat: The patient notes allergies, notes hayfever, denies ear infections, and denies bloody noses. Cardiovascular: The patient denies chest pain, denies heart disease, denies high blood pressure,denies cardiac stent, denies prior heart attack, denies irregular heart beat, denies high cholesterol, denies poor circulation, denies heart failure, other cardiac issues, notes claudication, denies cold feet, denies peripheral arterial stent. Respiratory: The patient denies tuberculosis, denies pneumonia, denies frequent cough, denies pulmonary embolism, denies shortness of breath, and denies coughing up blood. Gastrointestinal: The patient denies difficulty swallowing, denies acid reflux, denies ulcers, denies vomiting, denies jaundice/hepatitis, denies gallbladder problems, denies black or tarry stools, denies hemorrhoids, denies bleeding from rectum, denies diverticulitis, notes constipation, denies diarrhea, denies loss of stool control, and denies hernias. Kidney/Bladder: The patient denies kidney stones, denies urine infections, and denies bloody urine. Skin: The patient denies a history of skin cancer, denies bleeding/changing moles, and denies a history of skin rash. Neurologic: The patient denies a history of epilepsy/convulsions, denies headaches, denies head/spinal injuries, and notes stroke/TIA. Psychiatric: The patient denies psychiatric medications, denies depression, and denies voices, denies substance abuse. Endocrine: The patient denies thyroid disorders, denies diabetes, and denies hormonal problems. Hematologic: The patient notes a history of bruising, denies bleeding, and denies anemia, denies blood clots. Infections: The patient denies a history of measles and mumps, denies rheumatic fever, and denies sexually transmitted diseases. Musculoskeletal: The patient notes back pain/injury, denies back problems, denies sciatica, denies knee/foot trouble, denies arthritis, or denies gout. When was patient's last Mammogram screening Last Colonoscopy: 2012 Darlin Dupree LPN documented in this encounter [facility] 03-20-2022 History of Presen t illness Narrative Prefers Dr Jackson documented in this encounter [facility] 02-19-2022 History of Presen t illness Narrative VIRTUAL VISIT PROGRESS NOTE This is a virtual visit using [employer] video visit. It required patient-provider interaction for the medical decision making as documented below. Radha Medina is a 81 year old female seen for COVID concern. Today: Started not feeling well yesterday. Had a dull headache. Dry cough, runny nose. Fatigued. Home COVID test was positive this morning. The entire choir at her [employer] has been positive. No fever. Cough is mild. Tylenol has been helping her sx. HISTORY REVIEWED (electronic chart updated): PAST MEDICAL HISTORY Diagnosis Date CVA (cerebral vascular accident) (HCC) 06/02/2017 [facility] acute ischemic right posterior putamen stroke on MRI ASA, Plavix atorvastatin. Follow up with Dr. Witt scheduled. 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 May 2017; treated at [facility] Irritable bowel syndrome Osteoporosis, unspecified Thoracic or lumbosacral neuritis or radiculitis, unspecified Unspecified constipation Constipation PAST SURGICAL HISTORY Procedure Laterality Date COLONOSCOPY W/BIOPSY SINGLE/MULTIPLE 02/08/13 normal appearing DILATION & CURETTAGE DX&/THER NONOBSTETRIC Dilation & curettage EGD TRANSORAL BIOPSY SINGLE/MULTIPLE 02/08/13 duodenitis, gastritis LIG/TRNSXJ FLP TUBE ABDL/VAG APPR UNI/BI Tubal ligation TONSILLECTOMY PRIMARY/SECONDARY <AGE 14 Tonsillectomy FAMILY HISTORY Problem Relation Age of Onset Cancer Father stomach Heart Father Social History Tobacco Use Smoking status: Never Smoker Smokeless tobacco: Never Used Substance Use Topics Alcohol use: No Drug use: No Current Outpatient Medications Medication Sig sucralfate (CARAFATE) 1 gram tablet Take 1 tablet by mouth four times daily. Dissolve in 1 TBSP of water, before meals and at bedtime as directed cyclobenzaprine (FLEXERIL) 10 mg tablet Take 1 tablet by mouth three times daily as needed for muscle spasm. pantoprazole DR (PROTONIX) 40 mg tablet Take 1 tablet by mouth twice daily. Take on empty stomach, 1/2 hr before meal. venlafaxine ER (EFFEXOR XR) 75 mg 24 hr capsule Take 1 capsule by mouth once daily. atorvastatin (LIPITOR) 20 mg tablet Take 1 tablet by mouth once daily. clopidogrel (PLAVIX) 75 mg tablet Take 1 tablet by mouth once daily. scopolamine (TRANSDERM-SCOP) patch 1.5 mg/72 hr (1 mg over 3 days) Apply 1 Patch as directed every 72 hours. nitroglycerin sublingual (NITROQUICK) 0.4 mg SL tablet Dissolve 0.4mg tab (1tab) under tongue every 5min as needed for chest pain. If no response after max 3 tabs go to ED/notify doctor. fluticasone (FLONASE) 50 mcg/actuation nasal spray Use 1 [place] in each nostril once daily. For allergy season meclizine (ANTIVERT) 25 mg tab Take 2 tablets by mouth once daily as needed (dizziness/motion sickness). COMPOUNDED PRESCRIPTION Scopolamine 1.5 patch Apply first patch 4 hours to hairless area behind ear prior to travel then change every 72 hour while traveling polypodium leucotomos extract (HELIOCARE ORAL) Take by mouth. NAPROXEN (NAPROSYN ORAL) Take by mouth as needed. BIOTIN ORAL Take by mouth once daily. SENNOSIDES/DOCUSATE SODIUM (SENOKOT-S ORAL) Take by mouth once daily. aspirin, enteric coated (ASPIRIN, ENTERIC COATED) 81 mg EC tablet Take 1 tablet by mouth once daily. Cholecalciferol, Vitamin D3, (VITAMIN D) 1,000 unit cap Take 1,000 Units by mouth twice daily. ascorbic acid(VITAMIN C 500 MG TAB) Take one(1) tablet two(2) times daily. acetaminophen(TYLENOL ARTHRITIS PAIN 650 MG TAB) Take two(2) tablets twice daily. VITAMIN E 400IU SOFTGEL Take one(1) capsule twice daily. No current facility-administered medications for this visit. ALLERGIES Allergen Reactions Fentanyl Itching Codeine GI Upset Penicillins Unknown REVIEW OF SYSTEMS: All other ROS: negative As noted in HPI PHYSICAL EXAMINATION: VIDEO EXAM: (if completed, performed via video enabled technology) No exam performed ASSESSMENT: (U07.1) COVID (primary encounter diagnosis) PLAN: Sx started 02/18, positive home test 02/19. Mild sx at this point. Continue with supportive care. If sx worsen or change, may consider antiviral treatment. Janett Peacock APRN.CNP documented in this encounter [facility] 02-03-2022 Miscellaneous Notes Schedule with gastroenterology if so desires. Consider H2 sera, CT abd/pelvis if not feeling improved. documented in this encounter [facility] 01-16-2022 History of Presen t illness Narrative Radiology Service Progress Note PATIENT NAME: Radha Medina DATE OF SERVICE: January 16, 2022 TIME: 2:42 PM PATIENT IDENTITY VERIFICATION COMPLETED USING TWO (2) IDENTIFIERS: Name and Date of confirmed by patient verbally. FALL SCREENING: Has the patient had 2 falls in the last year or 1 fall with injury or currently using an Ambulatory Assistive Device (Walker, Cane, Wheelchair, Crutches, etc.)? No PATIENT GENDER DATA: Female. status: : No status: NO. PATIENT RELEVANT IMPLANT DATA REVIEWED: Not Applicable RADIOLOGY DEPARTMENT: Ultrasound PERIPHERAL IV DATA: Not applicable SIGNED BY: RT Lisseth(R) January 16, 2022 2:42 PM documented in this encounter [facility] 01-14-2022 Instructions Sandi Lara APRN.SKYE - 01/14/2022 2:18 PM EDT Take pantoprazole twice daily Take carafate before meals and at bedtime Complete RUQ ultrasound documented in this encounter [facility] 01-14-2022 History of Presen t illness Narrative Images from the original note were not included. SUBJECTIVE: COVID-19 VACCINE(4 - Booster for Moderna series) due on 10/07/2021 HPI Radha Medina is a 81 year old female. PMH significant for ACTIVE PROBLEM LIST Constipation Osteoporosis Thoracic Or Lumbosacral Neuritis Or Radiculitis, Unspecified Hyperlipidemia Anemia History of Total Right Hip Arthroplasty Gastroesophageal Reflux Disease Without Esophagitis Recurrent Major Depressive Disorder, in Remission (Hcc) Uveitis History of Recent Stroke Nocturia Vitamin D Deficiency Presents today with report of RUQ abdominal pain. She notes this is been present for couple of weeks. Note she has had increased GERD symptoms. No heartburn. No nausea vomiting or diarrhea. Chronic constipation currently managed with [place] and stool softener. Note she had a fall in November, had x-rays completed. Had spinal compression fracture noted and treated at [facility]. Outpatient procedure. MRI was completed at [facility]. Note she has been taking PPI once a day. As needed use of Carafate. Pain is described as sharp brief and intermittent in the right upper quadrant. Unclear if related to food. Does have increased pain with lying on the right side. No reported fever. Review of Systems Constitutional: Negative. Gastrointestinal: Positive for abdominal pain. Objective There were no vitals taken for this visit. Physical Exam Vitals and nursing note reviewed. Constitutional: Appearance: Normal appearance. HENT: Head: Normocephalic. Eyes: Conjunctiva/sclera: Conjunctivae normal. Cardiovascular: Rate and Rhythm: Normal rate. Pulmonary: Effort: Pulmonary effort is normal. Abdominal: General: There is no distension. Palpations: There is no mass. Tenderness: There is abdominal tenderness (RUQ). There is no guarding or rebound. Hernia: No hernia is present. Comments: TTP RUQ Skin: General: Skin is warm and dry. Neurological: Mental Status: She is alert. ALLERGIES Allergen Reactions Fentanyl Itching Codeine GI Upset Penicillins Unknown Medication cyclobenzaprine (FLEXERIL) 10 mg tablet Take 1 tablet by mouth three times daily as needed for muscle spasm. pantoprazole DR (PROTONIX) 40 mg tablet Take 1 tablet by mouth twice daily. Take on empty stomach, 1/2 hr before meal. venlafaxine ER (EFFEXOR XR) 75 mg 24 hr capsule Take 1 capsule by mouth once daily. atorvastatin (LIPITOR) 20 mg tablet Take 1 tablet by mouth once daily. sucralfate (CARAFATE) 1 gram tablet Take 1 tablet by mouth four times daily. Dissolve in 1 TBSP of water, before meals and at bedtime as directed clopidogrel (PLAVIX) 75 mg tablet Take 1 tablet by mouth once daily. scopolamine (TRANSDERM-SCOP) patch 1.5 mg/72 hr (1 mg over 3 days) Apply 1 Patch as directed every 72 hours. nitroglycerin sublingual (NITROQUICK) 0.4 mg SL tablet Dissolve 0.4mg tab (1tab) under tongue every 5min as needed for chest pain. If no response after max 3 tabs go to ED/notify doctor. fluticasone (FLONASE) 50 mcg/actuation nasal spray Use 1 [place] in each nostril once daily. For allergy season meclizine (ANTIVERT) 25 mg tab Take 2 tablets by mouth once daily as needed (dizziness/motion sickness). COMPOUNDED PRESCRIPTION Scopolamine 1.5 patch Apply first patch 4 hours to hairless area behind ear prior to travel then change every 72 hour while traveling polypodium leucotomos extract (HELIOCARE ORAL) Take by mouth. NAPROXEN (NAPROSYN ORAL) Take by mouth as needed. BIOTIN ORAL Take by mouth once daily. SENNOSIDES/DOCUSATE SODIUM (SENOKOT-S ORAL) Take by mouth once daily. aspirin, enteric coated (ASPIRIN, ENTERIC COATED) 81 mg EC tablet Take 1 tablet by mouth once daily. Cholecalciferol, Vitamin D3, (VITAMIN D) 1,000 unit cap Take 1,000 Units by mouth twice daily. ascorbic acid(VITAMIN C 500 MG TAB) Take one(1) tablet two(2) times daily. acetaminophen(TYLENOL ARTHRITIS PAIN 650 MG TAB) Take two(2) tablets twice daily. VITAMIN E 400IU SOFTGEL Take one(1) capsule twice daily. PAST MEDICAL HISTORY Diagnosis Date CVA (cerebral vascular accident) (HCC) 06/02/2017 [facility] acute ischemic right posterior putamen stroke on MRI ASA, Plavix atorvastatin. Follow up with Dr. Witt scheduled. 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 May 2017; treated at [facility] Irritable bowel syndrome Osteoporosis, unspecified Thoracic or lumbosacral neuritis or radiculitis, unspecified Unspecified constipation Constipation Social History Tobacco Use Smoking status: Never Smoker Smokeless tobacco: Never Used Substance Use Topics Alcohol use: No Drug use: No ASSESSMENT/PLAN: 1. RUQ abdominal pain - ICD9: 789.01, ICD10: R10.11 (primary diagnosis) - US ABD RT UPPER QUADRANT 2. Gastroesophageal reflux disease without esophagitis - ICD9: 530.81, ICD10: K21.9 - SUCRALFATE 1 GRAM TABLET Note she has been missing a PPI dose most days. Recommend mild diet, avoid fatty foods fried foods and alcohol for now. Take pantoprazole twice daily Take carafate before meals and at bedtime for 1 to 2 weeks consistently. Complete RUQ ultrasound Sandi Lara, [employer].SKYE Medical Decision Making: Problems: Low: Acute, uncomplicated illness or injury Data: Unique test(s) ordered: 1 Risk: Moderate: Drug management Medical Decision Making Level: 3 - Low documented in this encounter [facility] 12-18-2021 Miscellaneous Notes See MyChart reply Found form through care everywhere, printed and given to DR. Moon Pt wants to make sure provider reviews and comments on this. Contact Amos Garcia with 's message. Pt reports she has been talking to Nikkie at that office. Mikaela Estrella LPN documented in this encounter [facility] 12-03-2021 Instructions Annie Abebe APRN.EXPLOITATION ANALYST - 12/03/2021 3:20 PM EDT R.I.C.E. The general care of your injury includes the following: Resting, Icing, Compressing and Elevating the injured area. Remember this as RICE. REST: Limit the use of the injured body part. ICE: By applying ice to the affected area, swelling and pain can be reduced. Place some ice cubes in a re-sealable (Ziploc) bag and add some water. Put a thin washcloth between the bag and your skin. Apply the ice bag to the area for at least 20 minutes. Do this at least 4 times per day. Using the ice for longer times and more frequently is OK. NEVER APPLY ICE DIRECTLY TO THE SKIN. COMPRESS: Compression means to apply pressure around the injured area such as with a splint, cast or an edwin bandage. Compression decreases swelling and improves comfort. Compression should be tight enough to relieve swelling but not so tight as to decrease circulation. Increasing pain, numbness, tingling, or change in skin color, are all signs of decreased circulation. ELEVATE: Elevate the injured part. For example, elevate your foot by placing it on a chair while sitting, or propping it up on pillows when lying down. documented in this encounter [facility] 12-03-2021 History of Presen t illness Narrative Images from the original note were not included. This note was created using [employer]. Subjective Radha Medina is a 81 year old female. 81 year old female with PMH hyperlipidemia, GERD, and OA presents with complaints of injury s/p fall. Acute onset Thursday. States she was putting pants on while on side of bed. Endorses as she was going to sit back down, she missed the bed and landed on her back. Was a carpeted floor. Denies dizziness or near syncope. Denies head trauma or injury. Denies LOC. Denies neck or back pain. Denies abdominal pain. 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 Presents today citing still so much pain Denies inability to ambulate, saddle anesthesia, unilateral weakness, history of DM or IV drug usage. The history is provided by the patient. No masseur/masseuse was used. Fall The accident occurred more than 2 days ago. The fall occurred from a bed. She fell from a height of 3 to 5 ft. She landed on carpet. There was no blood loss. Point of impact: back. Pain location: back. The pain is at a severity of 7/10. The pain is moderate. She was ambulatory at the scene. There was no entrapment after the fall. There was no drug use involved in the accident. There was no alcohol use involved in the accident. Pertinent negatives include no visual change, no fever, no numbness, no abdominal pain, no bowel incontinence, no nausea, no vomiting, no hematuria, no headaches, no hearing loss, no loss of consciousness and no tingling. The symptoms are aggravated by activity, flexion, extension and ambulation. She has tried nothing for the symptoms. Back Pain This is a new problem. The current episode started more than 2 days ago. The problem occurs constantly. The problem has not changed since onset.The pain is associated with falling. The pain is present in the thoracic spine and lumbar spine. The quality of the pain is described as stabbing and cramping. The pain does not radiate. The pain is at a severity of 7/10. The pain is moderate. The symptoms are aggravated by bending, twisting and certain positions. The pain is the same all the time. Stiffness is present all day. Pertinent negatives include no chest pain, no fever, no numbness, no weight loss, no headaches, no abdominal pain, no abdominal swelling, no bowel incontinence, no perianal numbness, no bladder incontinence, no dysuria, no pelvic pain, no leg pain, no paresthesias, no paresis, no tingling and no weakness. Risk factors include a history of osteoporosis. PAST MEDICAL HISTORY Diagnosis Date CVA (cerebral vascular accident) (HCC) 06/02/2017 [facility] acute ischemic right posterior putamen stroke on MRI ASA, Plavix atorvastatin. Follow up with Dr. Witt scheduled. 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 May 2017; treated at [facility] Irritable bowel syndrome Osteoporosis, unspecified Thoracic or lumbosacral neuritis or radiculitis, unspecified Unspecified constipation Constipation PAST SURGICAL HISTORY Procedure Laterality Date COLONOSCOPY W/BIOPSY SINGLE/MULTIPLE 02/08/13 normal appearing DILATION & CURETTAGE DX&/THER NONOBSTETRIC Dilation & curettage EGD TRANSORAL BIOPSY SINGLE/MULTIPLE 02/08/13 duodenitis, gastritis LIG/TRNSXJ FLP TUBE ABDL/VAG APPR UNI/BI Tubal ligation TONSILLECTOMY PRIMARY/SECONDARY <AGE 12 Tonsillectomy ALLERGIES Fentanyl, Codeine, and Penicillins MEDICATIONS pantoprazole DR (PROTONIX) 40 mg tablet Take 1 tablet by mouth twice daily. Take on empty stomach, 1/2 hr before meal. venlafaxine ER (EFFEXOR XR) 75 mg 24 hr capsule Take 1 capsule by mouth once daily. atorvastatin (LIPITOR) 20 mg tablet Take 1 tablet by mouth once daily. sucralfate (CARAFATE) 1 gram tablet Take 1 tablet by mouth four times daily. Dissolve in 1 TBSP of water, before meals and at bedtime as directed clopidogrel (PLAVIX) 75 mg tablet Take 1 tablet by mouth once daily. scopolamine (TRANSDERM-SCOP) patch 1.5 mg/72 hr (1 mg over 3 days) Apply 1 Patch as directed every 72 hours. nitroglycerin sublingual (NITROQUICK) 0.4 mg SL tablet Dissolve 0.4mg tab (1tab) under tongue every 5min as needed for chest pain. If no response after max 3 tabs go to ED/notify doctor. fluticasone (FLONASE) 50 mcg/actuation nasal spray Use 1 [place] in each nostril once daily. For allergy season meclizine (ANTIVERT) 25 mg tab Take 2 tablets by mouth once daily as needed (dizziness/motion sickness). COMPOUNDED PRESCRIPTION Scopolamine 1.5 patch Apply first patch 4 hours to hairless area behind ear prior to travel then change every 72 hour while traveling NAPROXEN (NAPROSYN ORAL) Take by mouth as needed. BIOTIN ORAL Take by mouth once daily. SENNOSIDES/DOCUSATE SODIUM (SENOKOT-S ORAL) Take by mouth once daily. aspirin, enteric coated (ASPIRIN, ENTERIC COATED) 81 mg EC tablet Take 1 tablet by mouth once daily. Cholecalciferol, Vitamin D3, (VITAMIN D) 1,000 unit cap Take 1,000 Units by mouth twice daily. ascorbic acid(VITAMIN C 500 MG TAB) Take one(1) tablet two(2) times daily. acetaminophen(TYLENOL ARTHRITIS PAIN 650 MG TAB) Take two(2) tablets twice daily. VITAMIN E 400IU SOFTGEL Take one(1) capsule twice daily. predniSONE (DELTASONE) 10 mg tablet Take 6 tabs for 3 days, then 4 tabs for 3 days, then 2 tabs for 3 days then 1 tab for 3 days with food. cyclobenzaprine (FLEXERIL) 10 mg tablet Take 1 tablet by mouth three times daily as needed for muscle spasm. polypodium leucotomos extract (HELIOCARE ORAL) Take by mouth. FAMILY HISTORY Problem Relation Age of Onset Cancer Father stomach Heart Father Social History Tobacco Use Smoking status: Never Smoker Smokeless tobacco: Never Used Substance Use Topics Alcohol use: No Drug use: No Review of Systems Constitutional: Negative for activity change, appetite change, chills, fever and weight loss. Eyes: Negative for photophobia, pain, discharge, redness, itching and visual disturbance. Respiratory: Negative for apnea, cough, choking, chest tightness, shortness of breath, wheezing and stridor. Cardiovascular: Negative for chest pain, palpitations and leg swelling. Gastrointestinal: Negative for abdominal pain, bowel incontinence, nausea and vomiting. Genitourinary: Negative for bladder incontinence, dysuria, hematuria and pelvic pain. Musculoskeletal: Positive for back pain. Negative for gait problem and neck pain. Skin: Negative for color change, pallor, rash and wound. Allergic/Immunologic: Negative for environmental allergies, food allergies and immunocompromised state. Neurological: Negative for dizziness, tingling, loss of consciousness, facial asymmetry, weakness, numbness, headaches and paresthesias. Hematological: Negative for adenopathy. Does not bruise/bleed easily. Psychiatric/Behavioral: Negative for agitation and behavioral problems. Objective BP 126/78 Pulse 88 Temp 36.6 C (97.8 F) Resp 16 Wt 59.2 kg (130 lb 9.6 oz) SpO2 99% BMI 23.89 kg/m Physical Exam Vitals and nursing note reviewed. Constitutional: General: She is not in acute distress. Appearance: Normal appearance. She is normal weight. She is not ill-appearing, toxic-appearing or diaphoretic. HENT: Head: Normocephalic and atraumatic. Right Ear: Ear canal and external ear normal. Left Ear: Ear canal and external ear normal. Nose: Nose normal. No congestion or rhinorrhea. Mouth/Throat: Mouth: Mucous membranes are moist. Pharynx: No oropharyngeal exudate or posterior oropharyngeal erythema. Eyes: General: Right eye: No discharge. Left eye: No discharge. Extraocular Movements: Extraocular movements intact. Conjunctiva/sclera: Conjunctivae normal. Pupils: Pupils are equal, round, and reactive to light. Cardiovascular: Rate and Rhythm: Normal rate and regular rhythm. Pulses: Normal pulses. Heart sounds: Normal heart sounds. No murmur heard. No friction rub. Pulmonary: Effort: Pulmonary effort is normal. No respiratory distress. Breath sounds: Normal breath sounds. No stridor. No wheezing, rhonchi or rales. Chest: Chest wall: No tenderness. Abdominal: General: Abdomen is flat. There is no distension. Palpations: Abdomen is soft. There is no mass. Tenderness: There is no abdominal tenderness. There is no right CVA tenderness, left CVA tenderness, guarding or rebound. Hernia: No hernia is present. Musculoskeletal: General: No swelling, tenderness, deformity or signs of injury. Normal range of motion. Cervical back: Normal range of motion and neck supple. No rigidity. Back: Right lower leg: No edema. Left lower leg: No edema. Lymphadenopathy: Cervical: No cervical adenopathy. Skin: General: Skin is warm and dry. Coloration: Skin is not jaundiced or pale. Findings: No bruising, erythema, lesion or rash. Neurological: General: No focal deficit present. Mental Status: She is alert and oriented to person, place, and time. Cranial Nerves: No cranial nerve deficit. Sensory: No sensory deficit. Motor: No weakness. Coordination: Coordination normal. Gait: Gait normal. Psychiatric: Mood and Affect: Mood normal. Behavior: Behavior normal. Thought Content: Thought content normal. Judgment: Judgment normal. Assessment and Plan ASSESSMENT/PLAN: 1. Fall, initial encounter - ICD9: E888.9, ICD10: W19.XXXA (primary diagnosis) Occurred Thursday Mechanical No head trauma or LOC No red flags. - XR CHEST 2V FRONTAL/LAT-negative. - UA DIP, URINE (POC)-unable to provide and declines - CONSULT TO ORTHOPAEDICS 2. Upper back pain - ICD9: 724.5, ICD10: M54.9 Related to injury - Ice for localized tenderness - Warm moist heat for 20 min three times a day - Prednisone burst- see orders - Muscle relaxant- see orders - Patient given instructions use of medications as ordered, intermittent rest, back care exercise program, improved posture, proper lifting techniques, intermittent use of heat and avoiding sleeping on a heating pad - Follow up in 2 days or sooner if symptoms persist or worsen - XR THORACIC LIMITED 2V AP/LAT-reveals T 11 fracture 3. Acute low back pain, unspecified back pain laterality, unspecified whether sciatica present - ICD9: 724.2, ICD10: M54.50 Related to injury - Ice for localized tenderness - Warm moist heat for 20 min three times a day - Prednisone burst- see orders - Muscle relaxant- see orders - Patient given instructions use of medications as ordered, intermittent rest, back care exercise program, improved posture, proper lifting techniques, intermittent use of heat and avoiding sleeping on a heating pad - Follow up in 2 days or sooner if symptoms persist or worsen - XR LUMBAR GENERAL 3V AP/LAT/L5-S1 - UA DIP, URINE (POC) 4. Closed fracture of eleventh thoracic vertebra, unspecified fracture morphology, initial encounter ([facility]) - ICD9: 805.2, ICD10: S22.089A Related to fall No red flags RICE RX Prednisone and Flexeril Will follow up with her own ortho, Dr. Fabio Tatum CD and report of imaging copied for patient. - CONSULT TO ORTHOPAEDICS Annie Abebe APRN.EXPLOITATION ANALYST documented in this encounter [facility] 11-18-2021 History of Presen t illness Narrative This note was created using [employer]. Subjective Radha Medina is a 81 year old female. Patient presents with: F/U 6 months SUBJECTIVE: Radha Medina is a 81 year old year old lady here today for 6 month follow up appointment for review of medical conditions. Noted that Effexor helped with sleep but too tired during the day. Still tired when wakes up. Gets burst of energy around PM. Never was a morning person. Getting up around 7:30 to 9:00--varies what time gets out of bed. Needs to take nap in AM and PM. Would go to bed around 11:00. Able to fall asleep despite naps. Noted that had lost taste and smell before COVID issues. Can taste sweet only. Also cannot smell. Wonders if lipitor causing it. Reviewed reason on statin is CVA Would like to try lower dose. Still has a lot of reflux. PAST MEDICAL HISTORY Diagnosis Date CVA (cerebral vascular accident) ([facility]) 06/02/2017 [facility] acute ischemic right posterior putamen stroke on MRI ASA, Plavix atorvastatin. Follow up with Dr. Witt scheduled. 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 May 2017; treated at [facility] Irritable bowel syndrome Osteoporosis, unspecified Thoracic or lumbosacral neuritis or radiculitis, unspecified Unspecified constipation Constipation Current Outpatient Medications Medication Sig pantoprazole DR (PROTONIX) 40 mg tablet Take 1 tablet by mouth twice daily. Take on empty stomach, 1/2 hr before meal. atorvastatin (LIPITOR) 20 mg tablet Take 1 tablet by mouth once daily. sucralfate (CARAFATE) 1 gram tablet Take 1 tablet by mouth four times daily. Dissolve in 1 TBSP of water, before meals and at bedtime as directed clopidogrel (PLAVIX) 75 mg tablet Take 1 tablet by mouth once daily. scopolamine (TRANSDERM-SCOP) patch 1.5 mg/72 hr (1 mg over 3 days) Apply 1 Patch as directed every 72 hours. nitroglycerin sublingual (NITROQUICK) 0.4 mg SL tablet Dissolve 0.4mg tab (1tab) under tongue every 5min as needed for chest pain. If no response after max 3 tabs go to ED/notify doctor. fluticasone (FLONASE) 50 mcg/actuation nasal spray Use 1 [place] in each nostril once daily. For allergy season meclizine (ANTIVERT) 25 mg tab Take 2 tablets by mouth once daily as needed (dizziness/motion sickness). COMPOUNDED PRESCRIPTION Scopolamine 1.5 patch Apply first patch 4 hours to hairless area behind ear prior to travel then change every 72 hour while traveling polypodium leucotomos extract (HELIOCARE ORAL) Take by mouth. NAPROXEN (NAPROSYN ORAL) Take by mouth as needed. BIOTIN ORAL Take by mouth once daily. SENNOSIDES/DOCUSATE SODIUM (SENOKOT-S ORAL) Take by mouth once daily. aspirin, enteric coated (ASPIRIN, ENTERIC COATED) 81 mg EC tablet Take 1 tablet by mouth once daily. Cholecalciferol, Vitamin D3, (VITAMIN D) 1,000 unit cap Take 1,000 Units by mouth twice daily. ascorbic acid(VITAMIN C 500 MG TAB) Take one(1) tablet two(2) times daily. acetaminophen(TYLENOL ARTHRITIS PAIN 650 MG TAB) Take two(2) tablets twice daily. VITAMIN E 400IU SOFTGEL Take one(1) capsule twice daily. venlafaxine ER (EFFEXOR XR) 75 mg 24 hr capsule Take 1 capsule by mouth once daily. No current facility-administered medications for this visit. Review of Systems Objective BP 128/82 Pulse 84 Wt 61.7 kg (136 lb) BMI 24.87 kg/m Last 5 Encounter Wt Readings: Date: Wt: 11/18/2021 61.7 kg (136 lb) 05/08/2021 60.2 kg (132 lb 12.8 oz) 10/08/2020 61.2 kg (135 lb) 09/05/2020 60.8 kg (134 lb) 06/08/2020 60.8 kg (134 lb) No waist measurement recorded Estimated body mass index is 24.87 kg/m as calculated from the following: Height as of 05/16/16: 157.5 cm (5' 2 ). Weight as of this encounter: 61.7 kg (136 lb). Last 5 Encounter BP Readings: Date: BP: 11/18/2021 128/82 06/03/2021 172/72 05/08/2021 136/60 10/08/2020 130/72 06/08/2020 155/74 Physical Exam Constitutional: Appearance: Normal appearance. HENT: Head: Normocephalic. Eyes: Conjunctiva/sclera: Conjunctivae normal. Cardiovascular: Rate and Rhythm: Normal rate and regular rhythm. Heart sounds: Normal heart sounds. Pulmonary: Effort: Pulmonary effort is normal. Breath sounds: Normal breath sounds. Musculoskeletal: Right lower leg: No edema. Left lower le+ Edema present. Skin: General: Skin is warm and dry. Neurological: General: No focal deficit present. Mental Status: She is alert and oriented to person, place, and time. Psychiatric: Mood and Affect: Mood normal. Behavior: Behavior normal. Thought Content: Thought content normal. Judgment: Judgment normal. Component Latest Ref Rng & Units 01/04/2019 04/14/2019 02/20/2020 06/01/2020 05/03/2021 WBC 3.70 - 11.00 k/uL 6.18 7.08 8.07 6.52 RBC 3.90 - 5.20 m/uL 4.33 4.10 3.91 3.96 Hemoglobin 11.5 - 15.5 g/dL 12.5 12.4 11.3 (L) 12.2 Hematocrit 36.0 - 46.0 % 40.7 40.2 37.6 39.6 MCV 80.0 - 100.0 fL 94.0 98.0 96.2 100.0 MCH 26.0 - 34.0 pG 28.9 30.2 28.9 30.8 MCHC 30.5 - 36.0 g/dL 30.7 30.8 30.1 (L) 30.8 RDW-CV 11.5 - 15.0 % 13.8 14.0 13.5 13.1 Platelet Count 150 - 400 k/uL 286 290 311 305 MPV 9.0 - 12.7 fL 9.9 10.2 10.3 10.5 Neut% % 66.9 Abs Neut (ANC) 1.45 - 7.50 k/uL 5.40 Lymph% % 20.0 Abs Lymph 1.00 - 4.00 k/uL 1.61 [place]% % 10.0 Abs [place] <0.87 k/uL 0.81 Eosin% % 1.9 Abs Eosin <0.46 k/uL 0.15 Baso% % 1.2 Abs Baso <0.11 k/uL 0.10 Nucleated Reds 0 /100 WBC 0.0 Absolute nRBC <0.01 k/uL <0.01 <0.01 <0.01 <0.01 Diff Type Auto Diff Protein, Total 6.3 - 8.0 g/dL 6.8 7.2 7.2 Albumin 3.9 - 4.9 g/dL 4.4 4.4 4.6 Calcium 8.5 - 10.2 mg/dL 9.1 9.8 9.3 9.3 9.5 Bilirubin, Total 0.2 - 1.3 mg/dL 0.3 0.2 0.3 Alkaline Phosphatase 34 - 123 U/L 80 83 73 AST 13 - 35 U/L 20 22 22 Glucose 74 - 99 mg/dL 94 81 87 93 84 BUN 7 - 21 mg/dL 18 22 (H) 17 19 16 Creatinine 0.58 - 0.96 mg/dL 0.61 0.64 0.54 (L) 1.11 (H) 0.63 Sodium 136 - 144 mmol/L 141 141 141 142 140 Potassium 3.7 - 5.1 mmol/L 3.8 3.8 4.2 3.8 4.2 Chloride 97 - 105 mmol/L 104 101 105 105 105 CO2 22 - 30 mmol/L 28 26 27 27 26 Anion Gap 9 - 18 mmol/L 9 14 9 10 9 ALT 7 - 38 U/L 16 17 18 eGFR- >60 >60 >60 58 >60 eGFR-All Other Races . >60 >60 >60 48 >60 Cholesterol, Total <200 mg/dL 140 Triglyceride <150 mg/dL 83 HDL Cholesterol >39 mg/dL 48 LDL Cholesterol <100 mg/dL 75 Non HDL Cholesterol <130 mg/dL 92 Fasting Time hrs 12 VLDL Cholesterol <30 mg/dL 17 TC:HDL Ratio <5.10 2.92 LDL:HDL Ratio <2.54 1.56 Total Cholesterol, Nonfasting <200 mg/dL 140 Triglycerides, Nonfasting <150 mg/dL 93 HDL Cholesterol, Nonfasting >39 mg/dL 55 LDL Cholesterol, Nonfasting <100 mg/dL 66 Non HDL Cholesterol, Nonfasting <130 mg/dL 85 VLDL Cholesterol, Nonfasting <30 mg/dL 19 Total Chol/HDL Ratio, Nonfasting <5.10 mg/dL 2.55 LDL/HDL Ratio, Nonfasting <2.54 mg/dL 1.20 Vitamin D 25 Hydroxy 31.0 - 80.0 ng/mL 43.1 47.1 43.9 45.5 45.5 Ferritin 14.7 - 205.1 ng/mL 38.3 Magnesium 1.7 - 2.3 mg/dL 2.3 2.5 (H) 2.1 2.3 PTH, Intact 15 - 65 pg/mL 33 38 Phosphorus 2.7 - 4.8 mg/dL 4.1 3.4 Hep C Antibody IA Negative Negative Assessment and Plan ASSESSMENT/PLAN: 1. Vitamin D deficiency - ICD9: 268.9, ICD10: E55.9 (primary diagnosis) Adjust dose as needed. - VITAMIN D 25 HYDROXY 2. Gastroesophageal reflux disease without esophagitis - ICD9: 530.81, ICD10: K21.9 Continue present management. - SUCRALFATE 1 GRAM TABLET 3. Hyperlipidemia, unspecified hyperlipidemia type - ICD9: 272.4, ICD10: E78.5 - good control - Encouraged following a low fat, low cholesterol diet. - Discussed the benefits of regular aerobic exercise and weight loss. - Encouraged following a low carbohydrate, healthy oil intake diet. - LIPID PANEL BASIC 4. Recurrent major depressive disorder, in partial remission (HCC) - ICD9: 296.35, ICD10: F33.41 Stable Continue Effexor 5. Other fatigue - ICD9: 780.79, ICD10: R53.83 Further evaluation and treatment as indicated. - COMP METABOLIC PANEL - CBC 6. Age-related osteoporosis without current pathological fracture - ICD9: 733.01, ICD10: M81.0 - Reviewed the need for Calcium and Vitamin D supplements and weight bearing exercise as tolerated Further evaluation and treatment as indicated. 7. Loss of smell - ICD9: 781.1, ICD10: R43.0 8. Loss of taste - ICD9: 781.1, ICD10: R43.2 Wonders if due to Lipitor. Will see if improves at lower dose or off Lipitor. Further evaluation and treatment as indicated. 9. Encounter for long-term current use of medication - ICD9: V58.69, ICD10: Z79.899 - COMP METABOLIC PANEL - CBC - MAGNESIUM BLD Jonny Moon MD Medical Decision Making: Problems: Moderate: 2+ stable chronic illnesses Data: Unique test result(s) reviewed: 3+ Unique test(s) ordered: 3+ Risk: Moderate: Drug management Medical Decision Making Level: 4 - Moderate documented in this encounter [facility] 05-14-2021 Miscellaneous Notes Spoke with Spencer (pharmacist) looked at labs, does not need to be redrawn prior to Reclast infusion. Please schedule Reclast and notify pt. Tati Bermudez LPN Patient scheduled and notified. Had labs drawn 05/03-please advise if they need drawn again prior to infusion. 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 Follow up with Dr. Witt scheduled. 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 Follow up with Dr. Witt scheduled. 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 Follow up with Dr. Witt scheduled. 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 Follow up with Dr. Witt scheduled. 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 Follow up with Dr. Witt scheduled. 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 Follow up with Dr. Witt scheduled. 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 Follow up with Dr. Witt scheduled. 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 Follow up with Dr. Witt scheduled. 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 Follow up with Dr. Witt scheduled. 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 Follow up with Dr. Witt scheduled. Benign neoplasm of skin of lower limb, including hip 02/28/2008 11/14/2015 Hemangioma of skin and subcutaneous tissue 03/2611/14/2015 Irritable bowel syndrome 016 documented as of this encounter (statuses as of 04/09/2022) [facility] History of Past illness Narrative* Problem Noted Date Resolved Date CVA (cerebral vascular accident) 06/02/2017 07/12/2017 Overview: [facility] acute ischemic right posterior putamen stroke on MRI ASA, Plavix atorvastatin. Follow up with Dr. Witt scheduled. Benign neoplasm of skin of lower limb, including hip 02/28/2008 11/14/2015 Hemangioma of skin and subcutaneous tissue 03/2611/14/2015 Irritable bowel syndrome 016 documented as of this encounter (statuses as of 06/09/2022) [facility] History of Past illness Narrative* Problem Noted Date Resolved Date CVA (cerebral vascular accident) 06/02/2017 07/12/2017 Overview: [facility] acute ischemic right posterior putamen stroke on MRI ASA, Plavix atorvastatin. Follow up with Dr. Witt scheduled. Benign neoplasm of skin of lower limb, including hip 02/28/2008 11/14/2015 Hemangioma of skin and subcutaneous tissue 03/2611/14/2015 Irritable bowel syndrome 016 documented as of this encounter (statuses as of 06/21/2022) [facility] History of Past illness Narrative* Problem Noted Date Resolved Date CVA (cerebral vascular accident) 06/02/2017 07/12/2017 Overview: [facility] acute ischemic right posterior putamen stroke on MRI ASA, Plavix atorvastatin. Follow up with Dr. Witt scheduled. Benign neoplasm of skin of lower limb, including hip 02/28/2008 11/14/2015 Hemangioma of skin and subcutaneous tissue 03/2611/14/2015 Irritable bowel syndrome 016 documented as of this encounter (statuses as of 06/30/2022) [facility] History of Past illness Narrative* Problem Noted Date Resolved Date CVA (cerebral vascular accident) 06/02/2017 07/12/2017 Overview: [facility] acute ischemic right posterior putamen stroke on MRI ASA, Plavix atorvastatin. Follow up with Dr. Witt scheduled. Benign neoplasm of skin of lower limb, including hip 02/28/2008 11/14/2015 Hemangioma of skin and subcutaneous tissue 03/2611/14/2015 Irritable bowel syndrome 016 documented as of this encounter (statuses as of 07/04/2022) [facility] History of Past illness Narrative* Problem Noted Date Resolved Date CVA (cerebral vascular accident) 06/02/2017 07/12/2017 Overview: [facility] acute ischemic right posterior putamen stroke on MRI ASA, Plavix atorvastatin. Follow up with Dr. Witt scheduled. 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 Follow up with Dr. Witt scheduled. 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 Follow up with Dr. Witt scheduled. 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 Follow up with Dr. Witt scheduled. 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 Follow up with Dr. Witt scheduled. 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 Follow up with Dr. Witt scheduled. 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 Follow up with Dr. Witt scheduled. Benign neoplasm of skin of l ower limb, including hip 02/28/2008 11/14/2015 Hemangioma of skin and subcutaneous tissue 03/26/2006 11/14/2015 Irritable bowel syndrome 02/2016 documented as of this encounter (statuses as of 02/23/2023) [facility] History of Past illness Narrative* Problem Noted Date Diagnosed Date Resolved Date CVA (cerebral vascular accident) 06/02/2017 07/12/2017 Overview: [facility] acute ischemic right posterior putamen stroke on MRI ASA, Plavix atorvastatin. Follow up with Dr. Witt scheduled. Benign neoplasm of skin of l ower limb, including hip 02/28/2008 11/14/2015 Hemangioma of skin and subcutaneous tissue 03/26/2006 11/14/2015 Irritable bowel syndrome 02/2016 documented as of this encounter (statuses as of 02/24/2023) [facility] History of Past illness Narrative* Problem Noted Date Diagnosed Date Resolved Date CVA (cerebral vascular accident) 06/02/2017 07/12/2017 Overview: [facility] acute ischemic right posterior putamen stroke on MRI ASA, Plavix atorvastatin. Follow up with Dr. Witt scheduled. Benign neoplasm of skin of l ower limb, including hip 02/28/2008 11/14/2015 Hemangioma of skin and subcutaneous tissue 03/26/2006 11/14/2015 Irritable bowel syndrome 02/2016 documented as of this encounter (statuses as of 06/09/2023) [facility] History of Past illness Narrative* Problem Noted Date Diagnosed Date Resolved Date CVA (cerebral vascular accident) 06/02/2017 07/12/2017 Overview: [facility] acute ischemic right posterior putamen stroke on MRI ASA, Plavix atorvastatin. Follow up with Dr. Witt scheduled. Benign neoplasm of skin of l ower limb, including hip 02/28/2008 11/14/2015 Hemangioma of skin and subcutaneous tissue 03/26/2006 11/14/2015 Irritable bowel syndrome 02/2016 documented as of this encounter (statuses as of 06/14/2023) [facility] History of Past illness Narrative* Problem Noted Date Diagnosed Date Resolved Date CVA (cerebral vascular accident) 06/02/2017 07/12/2017 Overview: [facility] acute ischemic right posterior putamen stroke on MRI ASA, Plavix atorvastatin. Follow up with Dr. Witt scheduled. 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 Follow up with Dr. Witt scheduled. Benign neoplasm of skin of l ower limb, including hip 02/28/2008 11/14/2015 Hemangioma of skin and subcutaneous tissue 03/26/2006 11/14/2015 Irritable bowel syndrome 02/2016 documented as of this encounter (statuses as of 07/13/2023) [facility] History of Past illness Narrative* Problem Noted Date Diagnosed Date Resolved Date CVA (cerebral vascular accident) 06/02/2017 07/12/2017 Overview: [facility] acute ischemic right posterior putamen stroke on MRI ASA, Plavix atorvastatin. Follow up with Dr. Witt scheduled. Benign neoplasm of skin of l ower limb, including hip 02/28/2008 11/14/2015 Hemangioma of skin and subcutaneous tissue 03/26/2006 11/14/2015 Irritable bowel syndrome 02/2016 documented as of this encounter (statuses as of 07/14/2023) [facility] History of Past illness Narrative* Problem Noted Date Diagnosed Date Resolved Date CVA (cerebral vascular accident) 06/02/2017 07/12/2017 Overview: [facility] acute ischemic right posterior putamen stroke on MRI ASA, Plavix atorvastatin. Follow up with Dr. Witt scheduled. Benign neoplasm of skin of l ower limb, including hip 02/28/2008 11/14/2015 Hemangioma of skin and subcutaneous tissue 03/26/2006 11/14/2015 Irritable bowel syndrome 02/2016 documented as of this encounter (statuses as of 07/21/2023) [facility] Vitamin D deficiency- Primary Unspecified vitamin D deficiency Gastroesophageal reflux disease without esophagitis Esophageal reflux Hyperlipidemia, unspecified hyperlipidemia type Recurrent major depressive disorder, in partial remission (HCC) Other fatigue Age-related osteoporosis without current pathological fracture Senile osteoporosis Loss of smell Disturbances of sensation of smell and taste Loss of taste Disturbances of sensation of smell and taste Encounter for long-term current use of medication documented in this encounter [facility] note* Diagnosis Fall, initial encounter- Primary Upper back pain Acute low back pain, unspecified back pain laterality, unspecified whether sciatica present Closed fracture of eleventh thoracic vertebra, unspecified fracture morphology, initial encounter ([facility]) documented in this encounter [facility] note* Diagnosis RUQ abdominal pain- Primary Abdominal pain, right upper quadrant Gastroesophageal reflux disease without esophagitis Esophageal reflux documented in this encounter [facility] note* Diagnosis RUQ abdominal pain Abdominal pain, right upper quadrant documented in this encounter [facility] note* Diagnosis Constipation, unspecified constipation type- Primary RUQ abdominal pain Abdominal pain, right upper quadrant Gastroesophageal reflux disease without esophagitis Esophageal reflux documented in this encounter [facility] note* Diagnosis COVID- Primary documented in this encounter [facility] note* Diagnosis Gastroesophageal reflux disease without esophagitis- Primary Esophageal reflux Constipation, unspecified constipation type documented in this encounter [facility] note* Diagnosis Abdominal discomfort, generalized- Primary Abdominal pain, generalized Gastroesophageal reflux disease without esophagitis Esophageal reflux Constipation, unspecified constipation type Decreased energy Other malaise and fatigue Change in bowel habits Other symptoms involving digestive system documented in this encounter [facility] note* Diagnosis 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, subsequent encounter- Primary Recurrent major depressive disorder, in remission (HCC) Vitamin D deficiency Unspecified vitamin D deficiency Encounter for immunization Need for other specified prophylactic vaccination against single bacterial disease documented in this encounter [facility] note* Diagnosis Recurrent major depressive disorder, in partial remission (HCC) [F33.41 (ICD-10-CM)]- Primary documented in this encounter [facility] note* Diagnosis Iron deficiency anemia, unspecified iron deficiency anemia type- Primary 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, subsequent encounter documented in this encounter [facility] note* Diagnosis Recurrent major depressive disorder, in partial remission (HCC) [F33.41 (ICD-10-CM)]- Primary Vitamin D deficiency Unspecified vitamin D deficiency Loss of taste Disturbances of sensation of smell and taste Leg cramping Cramp of limb Hyperlipidemia, unspecified hyperlipidemia type Gastroesophageal reflux disease without esophagitis Esophageal reflux Encounter for long-term current use of medication 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, subsequent encounter [facility] Diagnosis Iron deficiency anemia, unspecified iron deficiency anemia type- Primary Generalized abdominal pain Abdominal pain, generalized Change in bowel habits Other symptoms involving digestive system Constipation, unspecified constipation type Bloating Flatulence, eructation, and gas pain [facility] Diagnosis Age-related osteoporosis without current pathological fracture- Primary Senile osteoporosis [facility] Diagnosis Age-related osteoporosis without current pathological fracture- Primary Senile osteoporosis Recurrent major depressive disorder, in full remission (HCC) Hyperlipidemia, unspecified hyperlipidemia type Vitamin D deficiency Unspecified vitamin D deficiency Encounter for long-term current use of medication Encounter for immunization Need for other specified prophylactic vaccination against single bacterial disease Asymptomatic postmenopausal status documented in this encounter [facility] for referral (narrative)* Diagnostic Procedure Only (Routine) - Authorized Specialty Diagnoses / Procedures Referred By Richi epps Referred To Contact US IMAGING Diagnoses RUQ abdominal pain Procedures US ABD RT UPPER QUADRANT US ABDOMINAL REAL TIME W/IMAGE LIMITED Sandi Lara APRN.INSPECTOR AND UNLOADER [address] [place] [address] Us Imaging Referral ID Status Reason Start Date Expiration Date Visits Requested Visits Authorized [id number] Authorized Auto-Generat ed Referral 01/14/2022 02/13/2023 [facility] Diagnostic Procedure Only (Routine) - Closed Specialty Diagnoses / Procedures Referred By Richi epps Referred To Contact US IMAGING Diagnoses RUQ abdominal pain Procedures US ABD RT UPPER QUADRANT US ABDOMINAL REAL TIME W/IMAGE LIMITED Sandi Lara APRN.CNS [address] [place] [address] Us Imaging Referral ID Status Reason Start Date Expiration Date V isits Requested Visits Authorized [id number] Closed Auto-Generate d Referral 01/14/2022 02/13/2023 1 1 [facility] for referral (narrative)* Outpatient Procedure (Routine) - Closed Specialty Diagnoses / Procedures Referred By Contac t Referred To Contact [facility] Diagnoses Generalized abdominal pain Change in bowel habits Constipation, unspecified constipation type Bloating Procedures EGD DIAGNOSTIC ESOPHAGOGASTRODUODENOSCO PY TRANSORAL DIAGNOSTIC Desiree Huang PA-C [address] [place] [address] [address] Referral ID Status Reason Start Date Expiration Date V isits Requested Visits Authorized [id number] Closed Auto-Generate d Referral 04/09/2022 04/09/2023 1 1 * Outpatient Procedure (Routine) - Closed Specialty Diagnoses / Procedures Referred By Richi epps Referred To Contact [facility] Diagnoses Generalized abdominal pain Change in bowel habits Constipation, unspecified constipation type Bloating Procedures COLONOSCOPY SCREENING COLONOSCOPY FLX DX W/COLLJ SPEC WHEN PFRMD Desiree Huang PA-C [address] [place] [address] [facility] Disease [address] [address] Referral ID Status Reason Start Date Expiration Date V isits Requested Visits Authorized [id number] Closed Auto-Generate d Referral 04/09/2022 04/09/2023 1 1 [facility] for referral (narrative)* Diagnostic Procedure Only (Routine) - Pending Review Specialty Diagnoses / Procedures Referred By Richi epps Referred To Contact XR IMAGING Diagnoses Asymptomatic postmenopausal status Procedures DXA-AXIAL SKELETON WITH VFA DXA BONE DENSITY STUDY AXIAL SKELETON Jonny Moon MD [address] [place] [address] Xr Imaging [id number] Referral ID Status Reason Start Date Expiration Date Visits Requested Visits Authorized [id number] Pending Review Auto-Generat ed Referral 08/19/2024 1 1 [facility] for visit Narrative* Outpatient Procedure (Routine) - Closed Specialty Diagnoses / Procedures Referred By Contac t Referred To Contact [facility] Diagnoses Generalized abdominal pain Change in bowel habits Constipation, unspecified constipation type Bloating Procedures EGD DIAGNOSTIC ESOPHAGOGASTRODUODENOSCO PY TRANSORAL DIAGNOSTIC Desiree Huang PA-C [address] [place] [address] [facility] [address] [place] [address] Referral ID Status Reason Start Date Expiration Date V isits Requested Visits Authorized [id number] Closed Auto-Generate d Referral 04/09/2022 04/09/2023 1 1 [facility] Summary Purpose Family History No Family History Records FoundNo Family History Records FoundNo Family History Records Found Advance Directives No Advanced Directives Records FoundNo Advanced Directives Records FoundNo Advanced Directives Records Found Reason for Referral Specialty Diagnoses / Procedures Referred By Contac t Referred To Contact Orthopedics Diagnoses Fall, initial encounter Closed fracture of eleventh thoracic vertebra, unspecified fracture morphology, initial encounter (HCC) Procedures CONSULT TO ORTHOPAEDICS OFFICE/OUTPATIENT [facility] 60-74 MINUTES Annie Abebe, NOVELTY CHAIN MAKER.EXPLOITATION ANALYST [address] [place] [address] Referral ID Status Reason Start Date Expiration Date Visits Requested Visits Authorized [id number] Authorized PCP Requested Referral 12/03/2021 12/03/2022 1 1 Specialty Diagnoses / Procedures Referred By Contac t Referred To Contact XR IMAGING Diagnoses Upper back pain Procedures XR THORACIC LIMITED 2V AP/LAT RADEX SPINE THORACIC 2 VIEWS Annie Abebe, NOVELTY CHAIN MAKER.EXPLOITATION ANALYST [address] [place] [address] Xr Imaging Referral ID Status Reason Start Date Expiration Date V isits Requested Visits Authorized [id number] Closed Auto-Generate d Referral 12/03/2021 01/02/2023 1 1 Specialty Diagnoses / Procedures Referred By Contac t Referred To Contact XR IMAGING Diagnoses Acute low back pain, unspecified back pain laterality, unspecified whether sciatica present Procedures XR LUMBAR GENERAL 3V AP/LAT/L5-S1 RADEX SPINE LUMBOSACRAL 2/3 VIEWS Annie Abebe, NOVELTY CHAIN MAKER.EXPLOITATION ANALYST [address] [place] [address] Xr Imaging Referral ID Status Reason Start Date Expiration Date V isits Requested Visits Authorized [id number] Closed Auto-Generate d Referral 12/03/2021 01/02/2023 1 1 Specialty Diagnoses / Procedures Referred By Contac t Referred To Contact Gastroenterology Diagnoses Constipation, unspecified constipation type RUQ abdominal pain Gastroesophageal reflux disease without esophagitis Procedures CONSULT TO GASTROENTEROLOGY OFFICE/OUTPATIENT [facility] 60-74 MINUTES Sandi Lara, NOVELTY CHAIN MAKER.INSPECTOR AND UNLOADER [address] [place] [address] Referral ID Status Reason Start Date Expiration Date Visits Requested Visits Authorized [id number] Authorized PCP Requested Referral 02/03/2022 02/03/2023 1 1 Specialty Diagnoses / Procedures Referred By Jenniferac t Referred To Contact General Surgery Diagnoses Gastroesophageal reflux disease without esophagitis Constipation, unspecified constipation type Procedures CONSULT TO GENERAL SURGERY OFFICE/OUTPATIENT [facility] 60-74 MINUTES Sandi Lara, NOVELTY CHAIN MAKER.INSPECTOR AND UNLOADER [address] [place] [address] Referral ID Status Reason Start Date Expiration Date Visits Requested Visits Authorized [id number] Authorized PCP Requested Referral 03/20/2022 03/20/2023 1 1 Medications Administered Section Inactive Administered Medications - up to 3 most recent administrations Medication Order MAR Action Action Date Dose Rate Site acetaminophen 1,000 mg tab(s) (TYLENOL) 1,000 mg, ORAL, ONCE, 1 dose, On Thu07/07/22 at 1500, No more than 4000 mg of acetaminophen should be given per day (FROM ALL SOURCES), If ordered PRN for pain, patient/guardian may elect to receive this medication for higher pain levels INSTEAD of the opioid, if preferred: N/A Given 07/07/2022 2:38 PM EST 1,000 mg zoledronic acid 5 mg PREMIX piggyback (RECLAST) 5 mg, INTRAVENOUS, at 400 mL/hr, Administer over 15 Minutes, ONCE, 1 dose, On Thu07/07/22 at 1500, Hazardous Potential Reproductive Risk Drug: Use appropriate PPE. New Bag/Syringe/Bottle 07/07/2022 2:40 PM EST 5 mg 400 mL/hr Inactive Administered Medications - up to 3 most recent administrations Medication Order MAR Action Action Date Dose Rate Site benzocaine 20% 1 [place] (TOPEX) 1 [place], TOPICAL, DIRECTED, Starting on Thu06/17/22 at 1030, Until Thu06/17/22 at 1429, DOSING DIRECTED BY PHYSICIAN FOR PROCEDURAL SEDATION ONLY - Pharmaceutical Waste: Aerosol -, Intraprocedure Given by LIP 06/17/2022 10:30 AM EST 3 Sprays diphenhydrAMINE 12.5-50 mg injection (BENADRYL) 12.5-50 mg, INTRAVENOUS, DIRECTED, Starting on Thu06/17/22 at 1030, Until Thu06/17/22 at 142, DOSING DIRECTED BY PHYSICIAN FOR PROCEDURAL SEDATION ONLY, Intraprocedure Given 06/17/2022 10:52 AM EST 50 mg fentaNYL 50 mcg/mL 25-100 mcg injection (SUBLIMAZE) 25-100 mcg, INTRAVENOUS, DIRECTED, Starting on Thu06/17/22 at 1030, Until Thu06/17/22 at 142, DOSING DIRECTED BY PHYSICIAN FOR PROCEDURAL SEDATION ONLY, Intraprocedure Given 06/17/2022 10:50 AM EST 25 mcg Additional Source Comments INFORMATION SOURCE (unrecogn ized section and content) DATE CREATED AUTHOR AUTHOR'S ORGANIZ ATION 08/18/2023 [facility] DATE CREATED AUTHOR AUTHOR'S ORGANIZ ATION 08/28/[address] [facility] al Source Comments (unrecognize d section and content) In the event this informatio n is protected by the Federal Confidentiality of Alcohol and Drug Abuse Patient Records regulations: The Federal rules restrict any use of the information to criminally investigate or prosecute any alcohol or drug abuse patient.[facility] CenterIn the event this information is protected by the Federal Confidentiality of Alcohol and Drug Abuse Patient Records regulations: The Federal rules restrict any use of the information to criminally investigate or prosecute any alcohol or drug abuse patient.[facility] CenterIn the event this information is protected by the Federal Confidentiality of Alcohol and Drug Abuse Patient Records regulations: The Federal rules restrict any use of the information to criminally investigate or prosecute any alcohol or drug abuse patient.[facility] CenterIn the event this information is protected by the Federal Confidentiality of Alcohol and Drug Abuse Patient Records regulations: The Federal rules restrict any use of the information to criminally investigate or prosecute any alcohol or drug abuse patient.[facility] CenterIn the event this information is protected by the Federal Confidentiality of Alcohol and Drug Abuse Patient Records regulations: The Federal rules restrict any use of the information to criminally investigate or prosecute any alcohol or drug abuse patient.[facility] CenterIn the event this information is protected by the Federal Confidentiality of Alcohol and Drug Abuse Patient Records regulations: The Federal rules restrict any use of the information to criminally investigate or prosecute any alcohol or drug abuse patient.[facility] CenterIn the event this information is protected by the Federal Confidentiality of Alcohol and Drug Abuse Patient Records regulations: The Federal rules restrict any use of the information to criminally investigate or prosecute any alcohol or drug abuse patient.[facility] CenterIn the event this information is protected by the Federal Confidentiality of Alcohol and Drug Abuse Patient Records regulations: The Federal rules restrict any use of the information to criminally investigate or prosecute any alcohol or drug abuse patient.[facility] CenterIn the event this information is protected by the Federal Confidentiality of Alcohol and Drug Abuse Patient Records regulations: The Federal rules restrict any use of the information to criminally investigate or prosecute any alcohol or drug abuse patient.[facility] CenterIn the event this information is protected by the Federal Confidentiality of Alcohol and Drug Abuse Patient Records regulations: The Federal rules restrict any use of the information to criminally investigate or prosecute any alcohol or drug abuse patient.[facility] CenterIn the event this information is protected by the Federal Confidentiality of Alcohol and Drug Abuse Patient Records regulations: The Federal rules restrict any use of the information to criminally investigate or prosecute any alcohol or drug abuse patient.[facility] CenterIn the event this information is protected by the Federal Confidentiality of Alcohol and Drug Abuse Patient Records regulations: The Federal rules restrict any use of the information to criminally investigate or prosecute any alcohol or drug abuse patient.[facility] CenterIn the event this information is protected by the Federal Confidentiality of Alcohol and Drug Abuse Patient Records regulations: The Federal rules restrict any use of the information to criminally investigate or prosecute any alcohol or drug abuse patient.[facility] CenterIn the event this information is protected by the Federal Confidentiality of Alcohol and Drug Abuse Patient Records regulations: The Federal rules restrict any use of the information to criminally investigate or prosecute any alcohol or drug abuse patient.[facility] CenterIn the event this information is protected by the Federal Confidentiality of Alcohol and Drug Abuse Patient Records regulations: The Federal rules restrict any use of the information to criminally investigate or prosecute any alcohol or drug abuse patient.[facility] CenterIn the event this information is protected by the Federal Confidentiality of Alcohol and Drug Abuse Patient Records regulations: The Federal rules restrict any use of the information to criminally investigate or prosecute any alcohol or drug abuse patient.[facility] CenterIn the event this information is protected by the Federal Confidentiality of Alcohol and Drug Abuse Patient Records regulations: The Federal rules restrict any use of the information to criminally investigate or prosecute any alcohol or drug abuse patient.[facility] CenterIn the event this information is protected by the Federal Confidentiality of Alcohol and Drug Abuse Patient Records regulations: The Federal rules restrict any use of the information to criminally investigate or prosecute any alcohol or drug abuse patient.[facility] CenterIn the event this information is protected by the Federal Confidentiality of Alcohol and Drug Abuse Patient Records regulations: The Federal rules restrict any use of the information to criminally investigate or prosecute any alcohol or drug abuse patient.[facility] CenterIn the event this information is protected by the Federal Confidentiality of Alcohol and Drug Abuse Patient Records regulations: The Federal rules restrict any use of the information to criminally investigate or prosecute any alcohol or drug abuse patient.[facility] CenterIn the event this information is protected by the Federal Confidentiality of Alcohol and Drug Abuse Patient Records regulations: The Federal rules restrict any use of the information to criminally investigate or prosecute any alcohol or drug abuse patient.[facility] CenterIn the event this information is protected by the Federal Confidentiality of Alcohol and Drug Abuse Patient Records regulations: The Federal rules restrict any use of the information to criminally investigate or prosecute any alcohol or drug abuse patient.[facility] CenterIn the event this information is protected by the Federal Confidentiality of Alcohol and Drug Abuse Patient Records regulations: The Federal rules restrict any use of the information to criminally investigate or prosecute any alcohol or drug abuse patient.[facility] CenterIn the event this information is protected by the Federal Confidentiality of Alcohol and Drug Abuse Patient Records regulations: The Federal rules restrict any use of the information to criminally investigate or prosecute any alcohol or drug abuse patient.[facility] CenterIn the event this information is protected by the Federal Confidentiality of Alcohol and Drug Abuse Patient Records regulations: The Federal rules restrict any use of the information to criminally investigate or prosecute any alcohol or drug abuse patient.[facility] the event this information is protected by the Federal Confidentiality of Alcohol and Drug Abuse Patient Records regulations: The Federal rules restrict any use of the information to criminally investigate or prosecute any alcohol or drug abuse patient.[facility] CenterIn the event this information is protected by the Federal Confidentiality of Alcohol and Drug Abuse Patient Records regulations: The Federal rules restrict any use of the information to criminally investigate or prosecute any alcohol or drug abuse patient.[facility] CenterIn the event this information is protected by the Federal Confidentiality of Alcohol and Drug Abuse Patient Records regulations: The Federal rules restrict any use of the information to criminally investigate or prosecute any alcohol or drug abuse patient.[facility] CenterIn the event this information is protected by the Federal Confidentiality of Alcohol and Drug Abuse Patient Records regulations: The Federal rules restrict any use of the information to criminally investigate or prosecute any alcohol or drug abuse patient.[facility] Care Teams (unrecognized sec tion and content) Ccie Relationship Specialty Start Date End Date Jonny Moon MD [facility] [place] [address] PCP - General Internal Medicine 04/07/17 Ccie Relationship Specialty Start Date End Date Jonny Moon MD [address] [place] [address], [place] [address] PCP - General Internal Medicine 04/07/17 Ccie Relationship Specialty Start Date End Date Jonny Moon MD [address] [place] [address], [place] [address] PCP - General Internal Medicine 04/07/17 Ccie Relationship Specialty Start Date End Date Jonny Moon MD [address] [place] [address], [place] [address] PCP - General Internal Medicine 04/07/17 Ccie Relationship Specialty Start Date End Date Jonny Moon MD [facility] [place] [address] PCP - General Internal Medicine 04/07/17 Ccie Relationship Specialty Start Date End Date Jonny Moon MD [address] [place] [address], [place] [address] PCP - General Internal Medicine 04/07/17 Ccie Relationship Specialty Start Date End Date Jonny Moon MD [address] [place] [address], [place] [address] PCP - General Internal Medicine 04/07/17 Ccie Relationship Specialty Start Date End Date Jonny Moon MD [address] [place] [address] PCP - General Internal Medicine 04/07/17 Ccie Relationship Specialty Start Date End Date Jonny Moon MD [address] [place] [address], [place] [address] PCP - General Internal Medicine 04/07/17 Ccie Relationship Specialty Start Date End Date Jonny Moon MD [address] [place] [address], [place] [address] PCP - General Internal Medicine 04/07/17 Ccie Relationship Specialty Start Date End Date Jonny Moon MD [address] [place] [address], [place] [address] PCP - General Internal Medicine 04/07/17 Ccie Relationship Specialty Start Date End Date Jonny Moon MD [address] [place] [address], [place] [address] PCP - General Internal Medicine 04/07/17 Ccie Relationship Specialty Start Date End Date Jonny Moon MD [address] [place] [address], [place] [address] PCP - General Internal Medicine 04/07/17 Ccie Relationship Specialty Start Date End Date Jonny Moon MD [address] [place] [address], [place] [address] PCP - General Internal Medicine 04/07/17 Ccie Relationship Specialty Start Date End Date Jonny Moon MD [address] [place] [address], [place] [address] PCP - General Internal Medicine 04/07/17 Ccie Relationship Specialty Start Date End Date Jonny Moon MD [address] [facility], [place] [id number] PCP - General Internal Medicine 04/07/17 Ccie Relationship Specialty Start Date End Date Jonny Moon MD [address] [place], [place] [address] PCP - General Internal Medicine 04/07/17 Ccie Relationship Specialty Start Date End Date Jonny Moon MD [address] [place] [address] PCP - General Internal Medicine 04/07/17 Ccie Relationship Specialty Start Date End Date Jonny Moon MD [address] [place] [address] PCP - General Internal Medicine 04/07/17 Ccie Relationship Specialty Start Date End Date Jonny Moon MD [address] [place], [place] [address] PCP - General Internal Medicine 04/07/17 Ccie Relationship Specialty Start Date End Date Jonny Moon MD [address] [place] [address] PCP - General Internal Medicine 04/07/17 Ccie Relationship Specialty Start Date End Date Jonny Moon MD [address] [place], [place] [id number] PCP - General Internal Medicine 04/07/17 Reason for Visit (unrecogniz ed section and content) Reason Comments Fall Pt fell at home pain middle back pain rated 7, x2 days Reason Comments Appointment Reclast Reason Comments Abdominal Pain Reason Comments Radiology US Specialty Diagnoses / Procedures Referred By Contac t Referred To Contact US IMAGING Diagnoses RUQ abdominal pain Procedures US ABD RT UPPER QUADRANT US ABDOMINAL REAL TIME W/IMAGE LIMITED Sandi Lara, [employer] [address] [place] [address] Us Imaging Referral ID Status Reason Start Date Expiration Date V isits Requested Visits Authorized [id number] Closed Auto-Generate d Referral 01/14/2022 02/13/2023 1 1 Reason Comments Covid19 Concern Reason Comments Consult GERD, constipation, bloating Specialty Diagnoses / Procedures Referred By Contac t Referred To Contact General Surgery Diagnoses Gastroesophageal reflux disease without esophagitis Constipation, unspecified constipation type Procedures CONSULT TO GENERAL SURGERY OFFICE/OUTPATIENT [facility] 60-74 MINUTES Sandi Lara, [employer].INS[employer]OR AND [employer]ER [address] [place] [address] Referral ID Status Reason Start Date Expiration Date V isits Requested Visits Authorized [id number] Closed PCP Requested Referral 03/20/2022 03/20/2023 1 1 Reason Comments Additional Labs Reason Comments Non-Chemotherapy Treatment Specialty Diagnoses / Procedures Referred By Contac t Referred To Contact Diagnoses 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, unspecified osteoporosis type, subsequent encounter History of total right hip arthroplasty Abel Owens, DO [address] [place] [address] [facility] [address] [place] [address] Referral ID Status Reason Start Date Expiration Date Visits Re quested Visits Authorized [id number] Closed 06/01/2020 08/30/2020 1 1 Reason Onset Date Comments Refill Request 09/01/2022 needs today Reason Onset Date Comments Refill Request 12/01/2022 Reason Onset Date Comments Refill Request 12/17/2022 Reason Comments Refill Request Reason Onset Date Comments Refill Request 02/22/2023 Reason Onset Date Comments Refill Request 06/07/2023 Reason Comments Reclast Infusion-Order Request Reason Comments Benefits Investigation Reason Comments F/U 6 months cholesterol FOR RECORDS PERTAINING TO PATIENTS WHO ARE OR HAVE BEEN ENROLLED IN A CHEMICAL DEPENDENCY/SUBSTANCEABUSE PROGRAM, SOME INFORMATION MAY BE OMITTED. This clinical summary was aggregated from multiple sources. Caution should be exercised in using it in the provision of clinical care. This summary normalizes information from multiple sources, and as a consequence, information in this document may materially change the coding, format and clinical context of patient data. In addition, data may be omitted in some cases. CLINICAL DECISIONS SHOULD BE BASED ON THE PRIMARY CLINICAL RECORDS. [facility]. provides no warranty or guarantee of the accuracy or completeness of information in this document.
[2023-08-28 16:47] VITALS: BP 133/58; PULSE 85; RESP 16; TEMP 37; O2SAT 97
--- NOTE | 2023-08-28 16:59 | HP.PCM_ITS ---
HPI - General General Date of Admission: 08/28/23 Date of Service: 08/31/23 Chief Complaint: Here for rehabilitation. HPI Narrative ELFEGO BALDWIN, is a 83 Female who presents with followin08/21/2023 [facility] [place]. Ground level fall, tripped over rug, landed right leg. Right leg pain. X-ray showed right femur fracture. 08/22/2023 Dr. Person performed ORIF right femur. Tolerating diet, bowel regimen. Pain control, PT/OT, WBAT, pulmonary hygiene. Postoperative anemia, transfused 1 unit PRBC. Aspirin, Plavix resumed. 08/27/2023 Right leg pain, tolerable with pain medications. Mildly anxious. 08/28/2023 Admit to TCU with debility, here for rehabilitation, strengthening, prior to discharge home alone. [facility] Medical History (Updated 08/31/23 @ 07:[address] Giovanni Martinez MD) GERD (gastroesophageal reflux disease) History of CVA (cerebrovascular accident) (06/19/17) Hyperlipidemia IBS (irritable bowel syndrome) Nonobstructive atherosclerosis of coronary artery Osteoarthritis Osteoporosis Home Medications cholecalciferol (vitamin D3) 25 mcg (1,000 unit) tablet 1,000 unit PO BID Supplement 10/19/15 [History Last Taken Unknown] meclizine 25 mg tablet 50 mg PO DAILY PRN PRN Dizziness 10/19/15 [History Last Taken 05/19/17] venlafaxine 75 mg tablet 75 mg PO DAILY 10/19/15 [History Last Taken 10/23/15] vit C 250 mg-vit E 90 mg-zinc 40 mg-copper 1 [id number] capsule 1 ea PO DAILY 10/19/15 [History Last Taken 10/24/15] acetaminophen 325 mg tablet 650 mg (2 x 325 mg) PO Q4H PRN PRN Mild-Mod Pain (1- 5/10) #0 tabs 11/01/15 [Rx Last Taken Unknown] atorvastatin 40 mg tablet 40 mg PO DAILY #30 tabs 05/20/17 [Rx Last Taken Unknown] clopidogrel 75 mg tablet 75 mg PO DAILY antiplatelet #30 tabs 05/20/17 [Rx Last Taken 08/27/23] ascorbate calcium (vitamin C) 500 mg tablet 500 mg PO BID Supplement 03/21/20 [History Last Taken Unknown] aspirin 81 mg tablet,delayed release (Adult Aspirin Regimen) 81 mg PO DAILY Heart Health 03/21/20 [History Last Taken 03/26/20] chlorpheniramine maleate 4 mg tablet (ChlorTabs) 4 mg PO Q8H PRN Allergies 03/21/20 [History Last Taken Unknown] nitroglycerin 0.4 mg sublingual tablet 0.4 mg sublingual Q5-15M PRN chest pain 03/21/20 [History Last Taken Unknown] polypodium leucotomos extract 240 mg capsule (Heliocare) mg PO .M/W/F 03/21/20 [History Last Taken Unknown] prenat.vits,luis,vrp-vean-tfnxw 1 tab PO DAILY 03/21/20 [History Last Taken Unknown] 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) 30 mg PO ONCE 03/21/20 [History Last Taken Unknown] vitamin E (dl, acetate) 180 mg (400 unit) capsule 400 unit PO DAILY Supplement 03/21/20 [History Last Taken 08/28/23] pantoprazole 40 mg tablet,delayed release 40 mg PO Q12H GERD 10/23/20 [History Last Taken 08/28/23 10:00] oxycodone-acetaminophen 5 mg-325 mg tablet 1 tab PO Q6H PRN PRN pain 5 days #20 TABLETS 06/16/21 [Rx Last Taken Unknown] venlafaxine 150 mg capsule,extended release 24 hr mg PO 06/16/21 [History Last Taken Unknown] ascorbic acid (vitamin C) 500 mg tablet 500 mg PO BID Supplement 08/28/23 [History Last Taken 08/28/23] biotin 1 cap PO DAILY Supplement 08/28/23 [History Last Taken Unknown] duloxetine 20 mg capsule,delayed release 20 mg PO DAILY Mood 08/28/23 [History Last Taken 08/28/23] fluticasone propionate 50 mcg/actuation nasal spray,suspension (24 Hour Allergy Relief) 1 spray intranasal DAILY PRN allergy symptoms 08/28/23 [History Last Taken Unknown] methocarbamol 500 mg tablet 500 mg PO TID PRN Muscle Spasms 08/28/23 [History Last Taken 08/25/23] polyethylene glycol 3350 17 gram oral powder packet 17 g PO DAILY Constipation 08/28/23 [History Last Taken Unknown] rosuvastatin 5 mg tablet (Crestor) 5 mg PO DAILY Cholesterol 08/28/23 [History Last Taken Unknown] scopolamine base 1 mg over 3 days transdermal patch 1 patch transdermal Q3D PRN As needed for Travel 08/28/23 [History Last Taken Unknown] senna-docusate sodium tablet 1 tab PO DAILY Constipation 08/28/23 [History Last Taken Unknown] sucralfate 1 gram tablet (Carafate) 1 g PO Q6H GERD 08/28/23 [History Last Taken Unknown] Allergy/AdvReac Type Severity Reaction Status Date / Time fentanyl Allergy Itching Verified 06/16/21 09:08 codeine AdvReac Nausea/Vom/ Verified 06/16/21 09:08 Diarrhea Penicillins AdvReac Unknown Verified 06/16/21 09:08 Family History Other Heart disease Surgical History History of left heart catheterization (03/26/20) History of total hip arthroplasty Social History (Updated 08/28/23 @ 17:[address] Giovanni Martinez MD) household members: none Smoking Status: Former smoker alcohol intake: never substance use type: does not use ROS Constitutional Constitutional: Denies chills, fever(s) or weight gain ENT HEENT: Denies headache(s), nasal congestion or nasal discharge Cardiovascular Cardiovascular: Denies chest pain or palpitations Respiratory/Chest Respiratory/Chest: Denies cough, excessive phlegm production or shortness of breath with exertion Gastrointestinal Gastrointestinal: Denies abdominal pain, nausea or vomiting Genitourinary Genitourinary: Denies dysuria Musculoskeletal Musculoskeletal: Denies joint pain or joint swelling Integumentary Integumentary: Denies rash or wounds Neurologic Neurologic: Denies focal weakness, numbness or tingling Psychiatric Psychiatric: Denies anxiety, auditory hallucinations, depression, homicidal ideation or suicidal ideation Physical Exam Const alert General Appearance: cooperative HEENT normocephalic Eyes PERRL and EOMs intact bilaterally Neck supple, no JVD and no carotid bruits Resp normal respiratory effort, normal air movement and clear to auscultation bilaterally Cardio regular rate and regular rhythm GI normal to inspection, nondistended, normoactive bowel sounds, non-tender and non-distended Extremity normal capillary refill General Extremity: Negative for edema Skin no rashes or lesions noted General Skin Exam: no breakdown Psych affect normal Appearance: appropriate Results Lab / Micro Data 08/30/23 17:08 08/29/23 07:22 Assessment & Plan Assessment/Plan (1) Debility: (2) Vitamin D deficiency: (3) Depression: (4) Hyperlipidemia: (5) Stroke: (6) GERD (gastroesophageal reflux disease): (7) Right femoral fracture: PLAN: Plan 83 year old female with below past medical history hospitalized for right femur fracture, underwent ORIF right femur 08/22/[address] Person, admitted to TCU with debility, here for rehabilitation, strengthening, prior to discharge home alone. * Debility - PT/OT. * Pain - Naproxen 250mg bid prn. * Bowel - Miralax 17gm daily, senna/colace 1 tablet bid, Magnesium citrate 300ml po daily prn. * Adult immunization - Administer pneumonia vaccine, covid vaccine, flu vaccine as appropriate. * DVT prophylaxis - Hold, on dual antiplatelet therapy, postoperative anemia requiring transfusion. * Vitamin C deficiency - Vitamin C 500mg bid. * Biotin deficiency - Biotin 1 cap daily. * Stroke - Aspirin 81mg daily, Plavix 75mg daily. * Vitamin D deficiency - Vitamin D3 25mcg bid. * Hyperlipidemia - Atorvastatin 10mg qhs. * Depression - Duloxetine 20mg daily, stable chronic terminal gauger use, GDR not recommended. * Allergic rhinitis - Fluticasone 0.05% 1 spray nasal daily prn. * Muscle spasm - Robaxin 500mg tid prn. * Nonobstructive coronary artery disease - NTG 0.4mg sl q5m prn. * GERD - Pantoprazole 40mg q12, Carafate 1gm qachs. * Vitamin E deficiency - Vitamin E 400IU bid. * Insomnia - Benadryl 50mg qhs, per resident request. * Hypomagnesemia - Magnesium chloride 128mg qhs. * Postoperative anemia - Hemoglobin 7.4, transfused 2 units PRBC, post transfusion Hemoglobin 9.2.
[2023-08-28 20:00] VITALS: BMI 24.0
[2023-08-28] MEDS: Ascorbic Acid 500 MG Tablet PO (20:05)
[2023-08-28] MEDS: Cholecalciferol (VIT D3) 25 MCG TABLET (1,000 UNITS) PO (20:05)
[2023-08-28] MEDS: Vitamin E 400 UNITS Capsule PO (20:05)
[2023-08-28] MEDS: Pantoprazole Sodium 40 MG Tablet PO (20:05)
[2023-08-28] MEDS: Senna/Docusate Sodium 1 Tablet PO (20:05)
[2023-08-28] MEDS: Atorvastatin Calcium 10 MG Tablet PO (20:06)
[2023-08-28] MEDS: Sucralfate 1 GM Tablet PO (20:06)
[2023-08-28] MEDS: Acetaminophen 500 MG Tablet 1000 MG PO (23:19)
[2023-08-29 01:20] VITALS: BMI 24.0
[2023-08-29] MEDS: Acetaminophen 500 MG Tablet 1000 MG PO ×3 (06:40→22:36)
[2023-08-29] MEDS: Sucralfate 1 GM Tablet PO ×2 (06:42→11:15)
[2023-08-29 07:40] LABS: Absolute Lymphocyte Count 1.58 X10^3/uL (0.83-4.51); Absolute Neutrophil Count 7.6 X10^3/uL (2.0-7.7); Basophil# 0.06 X10^3/uL; Basophil% 0.6 % (0-1); Eosinophil# 0.38 X10^3/uL; Eosinophils% 3.5 % (0-5); Hematocrit 23.3 % (37-47); Hemoglobin 7.4 g/dL (12.0-15.0); Lymphocyte # 1.58 X10^3/ul (0.83-4.51); Lymphocyte % 14.5 % (19-41); Mean Corp Hgb Conc 31.8 g/dL (32-36); Mean Corpuscular Hgb 31.6 pg (27.0-32.0); Mean Corpuscular Volume 99.6 fL (81-99); Mean Platelet Vol. 9.1 fl (6.2-12.0); Monocyte# 1.11 X10^3/uL; Monocyte% 10.2 % (0-10); NRBC Flagged by Analyzer 0 % (0-5); Neutrophil # 7.55 X10^3/uL (2.7-7.7); Neutrophil % 69.5 % (47-70); Platelet Count 332 K/mm3 (150-450); RBC Distribution Width CV 14.1 % (11.6-14.6); RBC Distribution Width SD 49.1 fl (35.1-43.9); Red Blood Count 2.34 M/mm3 (4.2-5.4); White Blood Count 10.9 K/mm3 (4.4-11.0)
[2023-08-29 07:58] LABS: Anion Gap 4 (5-15); BUN 17 mg/dL (7-18); BUN/Creat Ratio 39.1 RATIO (10-20); Calcium,Total 8.3 mg/dL (8.5-10.1); Chloride 110 mmol/L (98-107); Creatinine, Serum 0.44 mg/dL (0.55-1.02); EST Glomerular Filtration Rate 148 mL/min (>60); Est Glom Filt Rate - Afr Amer 179 mL/min (>60); Estimated Creatinine Clearance 47.58 ml/min; Glucose 125 mg/dL (74-106); Potassium 3.5 mmol/L (3.5-5.1); Sodium Level 140 mmol/L (136-145)
[2023-08-29 09:43] VITALS: BP 142/54; PULSE 90; RESP 18; TEMP 36.9; O2SAT 99
[2023-08-29] MEDS: Pantoprazole Sodium 40 MG Tablet PO ×2 (09:48→22:36)
[2023-08-29] MEDS: Senna/Docusate Sodium 1 Tablet PO (09:49)
[2023-08-29] MEDS: Clopidogrel Bisulfate 75 MG Tablet PO (09:49)
[2023-08-29] MEDS: Cholecalciferol (VIT D3) 25 MCG TABLET (1,000 UNITS) PO ×2 (09:49→22:37)
[2023-08-29] MEDS: Ascorbic Acid 500 MG Tablet PO ×2 (09:49→22:37)
[2023-08-29] MEDS: Vitamin E 400 UNITS Capsule PO (09:49)
[2023-08-29] MEDS: DULoxetine Hcl 20 MG Capsule PO (09:50)
[2023-08-29] MEDS: Aspirin E.C. 81 MG Tablet PO (09:50)
[2023-08-29] MEDS: Tuberculin,Purif.prot.deriv. 50 TU/ML Vial 0.100000000000000006 ML ID (10:26)
--- NOTE | 2023-08-29 11:10 | NURSING ---
Pt requested med changes for Miralax and senna. RN received order from Dr. Martinez for Miralax PRN and Senna 2 tabs BID.
[2023-08-29] MEDS: Methocarbamol 500 MG Tablet PO (13:53)
--- NOTE | 2023-08-29 13:58 | NURSING ---
Pt Hgb 7.[address] Martinez entered following new orders: 1. Type and Cross 2 units PRBC. 2. Transfuse 2 units PRBC per protocol. 3. Lasix 20mg iv between units. 4. H&H 24 hours after transfusion. Pt aware of and in agreement with new orders. Denies staff calling to update family with (above listed) and miralax/senna orders, states she will update when they come in for visit.
[2023-08-29 14:43] VITALS: BP 152/66; PULSE 84
--- NOTE | 2023-08-29 14:58 | NURSING ---
Pt leaves unit with staff to med-surg floor (room 305) for PRBC infusion. Pt's [id number] present and accompanying patient.
[2023-08-29 15:39] VITALS: BP 185/60; PULSE 82; RESP 18; TEMP 36.7; O2SAT 97
--- NOTE | 2023-08-29 15:44 | NURSING ---
total volume of blood product is not 1ml - total volume should be 278ml per blood product bag
[2023-08-29 15:54] VITALS: BP 185/73; PULSE 72; RESP 18; TEMP 36.8; O2SAT 98
[2023-08-29 16:00] VITALS: BP 152/66; PULSE 84; RESP 18; O2SAT 100
[2023-08-29] MEDS: traMADol 50 MG Tablet PO (16:07)
--- NOTE | 2023-08-29 16:14 | NURSING ---
Pt requested PRN Tramadol. Pulled Tramadol from [facility] on TCU, walked over to MS3. Was unable to login to computer in room, RN administered and charted PRN tramadol.
--- NOTE | 2023-08-29 16:39 | NURSING ---
pt asked this RN what was listed as her insurance for TCU - informed pt that she had medicare and human[employer] list as her insurance. pt states that she switched to [employer] Aug 10; I placed a call to ER registration and talked to Melva who needed a copy of pts insurance card to be able to fix it in the computer. a copy was sent to registration and a copy will be sent to TCU for her chart. pt states that when she got admitted to TCU that noone came to register her so she could give the new card to them. pt also states that the hospital she was transferred from had the correct information of the [employer] insurance.
[2023-08-29] MEDS: Atorvastatin Calcium 10 MG Tablet PO (22:36)
[2023-08-29] MEDS: Senna/Docusate Sodium 1 Tablet 2 TABLET PO (22:36)
[2023-08-30 08:54] VITALS: BP 123/54; PULSE 97; RESP 17; TEMP 37.4; O2SAT 97
[2023-08-30] MEDS: Vitamin E 400 UNITS Capsule PO ×2 (08:58→18:02)
[2023-08-30] MEDS: Iron Polysaccharide Complex 150 MG CAPSULE PO (08:58)
[2023-08-30] MEDS: DULoxetine Hcl 20 MG Capsule PO (08:58)
[2023-08-30] MEDS: Aspirin E.C. 81 MG Tablet PO (08:58)
[2023-08-30] MEDS: Clopidogrel Bisulfate 75 MG Tablet PO (08:59)
[2023-08-30] MEDS: Pantoprazole Sodium 40 MG Tablet PO ×2 (08:59→21:48)
[2023-08-30] MEDS: Senna/Docusate Sodium 1 Tablet 2 TABLET PO ×2 (09:00→21:48)
[2023-08-30] MEDS: Ascorbic Acid 500 MG Tablet PO ×2 (09:00→21:48)
[2023-08-30] MEDS: Cholecalciferol (VIT D3) 25 MCG TABLET (1,000 UNITS) PO ×2 (09:00→21:48)
[2023-08-30 17:14] LABS: Hematocrit 28.7 % (37-47); Hemoglobin 9.3 g/dL (12.0-15.0)
--- NOTE | 2023-08-30 17:30 | NURSING ---
Addendum entered by Lary Yu 08/30/23 17:41: Inpatient pharmacy does not carry Magnesium 500mg. Substitute for Magnesium Chloride 128mg. Original Note: Call placed to Dr. Martinez. Patient requesting the following medication changes: discontinue Iron and carafate, asking for naturemade folic acid + DHA, Benadryl 50mg at night, Naproxen PRN (patient states Ultram and Tylenol are ineffective for pain), and Magnesium 500mg at bedtime. Unable to order home vitamin per Dr. Martinez. New orders obtained for Benadryl 50mg PO QHS, Naproxen 250mg PO BID PRN for pain 1-10, Magnesium 500mg PO QHS. DC: Tylenol , iron, Carafate, and Ultram.
[2023-08-30] MEDS: DiphenhydrAMINE 25 MG Capsule 50 MG PO (21:46)
[2023-08-30] MEDS: Atorvastatin Calcium 10 MG Tablet PO (21:46)
[2023-08-30] MEDS: Magnesium Chloride 64 MG Delay Rel.Tablet 128 MG PO (21:47)
[2023-08-30] MEDS: Naproxen 250 MG Tablet PO (21:48)
[2023-08-31] MEDS: Naproxen 250 MG Tablet PO ×2 (05:32→17:39)
[2023-08-31] MEDS: Pantoprazole Sodium 40 MG Tablet PO ×2 (09:12→20:12)
[2023-08-31] MEDS: Vitamin E 400 UNITS Capsule PO ×2 (09:12→17:37)
[2023-08-31] MEDS: Ascorbic Acid 500 MG Tablet PO ×2 (09:12→20:13)
[2023-08-31] MEDS: Clopidogrel Bisulfate 75 MG Tablet PO (09:12)
[2023-08-31] MEDS: Aspirin E.C. 81 MG Tablet PO (09:12)
[2023-08-31] MEDS: Cholecalciferol (VIT D3) 25 MCG TABLET (1,000 UNITS) PO ×2 (09:12→20:12)
[2023-08-31] MEDS: DULoxetine Hcl 20 MG Capsule PO (09:12)
[2023-08-31] MEDS: Senna/Docusate Sodium 1 Tablet 2 TABLET PO ×2 (09:13→20:12)
--- NOTE | 2023-08-31 11:50 | NURSING ---
Psychological Examiner Note; Activity Asset: Anay Garcia prefers to be called Niurka . Niurka is independent in her choice of daily activities. She enjoys reading, watching tv and knitting. She will use her smartphone to read her books as well as talk w/family and friends. Her topography technician from [facility] will visit and bring her communion. She welcomes visit from both our Manager Services and therapy dog when available. Staff will remind her of daily activities and respect her right to say no.
[2023-08-31 13:29] VITALS: BP 137/56; PULSE 84; RESP 16; TEMP 36.9; O2SAT 98
--- NOTE | 2023-08-31 14:55 | NURSING ---
Called Dr. Person's office to clarify appt. pt was scheduled for a 2 week post op visit and office called daughter and changed it to a 3 week post op visit. LVM with Nurse asking about when dressing/rupesh can be removed and when pt can have a shower. waiting to hear back from nurse.
--- NOTE | 2023-08-31 16:46 | NURSING ---
Spoke with Nurse from Dr. Person's office. Per Dr. Person pt is okay to shower as long as dressing stays dry and intact. Dr. Person wants to see pt in 3 weeks instead of a 2 week post op. Change dressing only as needed keep dry and intact. If dressing needs changed replace with mepilex.
[2023-08-31] MEDS: DiphenhydrAMINE 25 MG Capsule 50 MG PO (20:12)
[2023-08-31] MEDS: Atorvastatin Calcium 10 MG Tablet PO (20:12)
[2023-08-31] MEDS: Magnesium Chloride 64 MG Delay Rel.Tablet 128 MG PO (20:12)
[2023-08-31 21:00] VITALS: PULSE 72; RESP 16; O2SAT 97
[2023-09-01 01:00] VITALS: BMI 23.7
[2023-09-01 08:12] LABS: Hematocrit 29.7 % (37-47); Hemoglobin 9.4 g/dL (12.0-15.0)
[2023-09-01] MEDS: Cholecalciferol (VIT D3) 25 MCG TABLET (1,000 UNITS) PO ×2 (09:18→22:02)
[2023-09-01] MEDS: Clopidogrel Bisulfate 75 MG Tablet PO (09:18)
[2023-09-01] MEDS: DULoxetine Hcl 20 MG Capsule PO (09:18)
[2023-09-01] MEDS: Pantoprazole Sodium 40 MG Tablet PO ×2 (09:18→22:02)
[2023-09-01] MEDS: Vitamin E 400 UNITS Capsule PO ×2 (09:19→18:06)
[2023-09-01] MEDS: Ascorbic Acid 500 MG Tablet PO ×2 (09:19→22:01)
[2023-09-01] MEDS: Aspirin E.C. 81 MG Tablet PO (09:19)
[2023-09-01] MEDS: Naproxen 250 MG Tablet PO ×2 (09:30→22:00)
[2023-09-01 10:00] VITALS: PULSE 92; O2SAT 97
[2023-09-01 10:01] VITALS: BMI 23.7
[2023-09-01 13:52] VITALS: BP 115/55; PULSE 92; RESP 16; TEMP 36.4; O2SAT 97
[2023-09-01] MEDS: DiphenhydrAMINE 25 MG Capsule 50 MG PO (22:01)
[2023-09-01] MEDS: Magnesium Chloride 64 MG Delay Rel.Tablet 128 MG PO (22:01)
[2023-09-01] MEDS: Atorvastatin Calcium 10 MG Tablet PO (22:02)
[2023-09-02] MEDS: Ascorbic Acid 500 MG Tablet PO ×2 (08:05→21:52)
[2023-09-02] MEDS: Pantoprazole Sodium 40 MG Tablet PO ×2 (08:05→21:51)
[2023-09-02] MEDS: Aspirin E.C. 81 MG Tablet PO (08:05)
[2023-09-02] MEDS: Cholecalciferol (VIT D3) 25 MCG TABLET (1,000 UNITS) PO ×2 (08:05→21:52)
[2023-09-02] MEDS: DULoxetine Hcl 20 MG Capsule PO (08:05)
[2023-09-02] MEDS: Vitamin E 400 UNITS Capsule PO ×2 (08:05→17:01)
[2023-09-02] MEDS: Clopidogrel Bisulfate 75 MG Tablet PO (08:05)
--- NOTE | 2023-09-02 10:08 | CASEMGMT ---
Social Work Met with patient to complete initial assessment. Introduced self and role Verified/updated contacts. Confirmed code status as DNR-CCA, no intubation. SW requested family provide copies of advanced directives. Pt sent text message to dtr with request. Pt's goal is to return home alone. SW will continue to follow for DC planning. Raiza Aviles, EDGAR FLORESW
--- NOTE | 2023-09-02 10:23 | CASEMGMT ---
Addendum entered by Raiza Aviles 09/02/23 13:07: SW requested dtr provide copies of pts advanced directives. Dtr agreed. Original Note: Social Work IDT met with patient, dtr and DIL for care plan meeting. Discussed patient's progress in PT/OT/SN. Educated to Medicare benefit and copay coverage. Pt's goal is to return home alone at [facility]. Pt has f/u appt next week and therapy recommending discussion with Dr on new drop foot symptoms. Pt agreed. SW will continue to follow for DC planning. EDGAR LandryW
[2023-09-02] MEDS: Naproxen 250 MG Tablet PO ×2 (11:48→21:49)
[2023-09-02 16:00] VITALS: BP 137/60; PULSE 87; RESP 20; TEMP 36.6; O2SAT 96
[2023-09-02] MEDS: DiphenhydrAMINE 25 MG Capsule 50 MG PO (21:49)
[2023-09-02] MEDS: Magnesium Chloride 64 MG Delay Rel.Tablet 128 MG PO (21:50)
[2023-09-02] MEDS: Atorvastatin Calcium 10 MG Tablet PO (21:50)
[2023-09-02] MEDS: Senna/Docusate Sodium 1 Tablet 2 TABLET PO (21:51)
[2023-09-03] MEDS: Naproxen 250 MG Tablet PO ×3 (06:07→17:53)
[2023-09-03] MEDS: DULoxetine Hcl 20 MG Capsule PO (08:24)
[2023-09-03] MEDS: Clopidogrel Bisulfate 75 MG Tablet PO (08:24)
[2023-09-03] MEDS: Vitamin E 400 UNITS Capsule PO ×2 (08:24→16:56)
[2023-09-03] MEDS: Aspirin E.C. 81 MG Tablet PO (08:24)
[2023-09-03] MEDS: Ascorbic Acid 500 MG Tablet PO ×2 (08:25→22:03)
[2023-09-03] MEDS: Pantoprazole Sodium 40 MG Tablet PO ×2 (08:25→22:03)
[2023-09-03] MEDS: Cholecalciferol (VIT D3) 25 MCG TABLET (1,000 UNITS) PO ×2 (08:25→22:03)
[2023-09-03 10:29] VITALS: BP 124/63; PULSE 72; RESP 16; TEMP 36.9; O2SAT 99
[2023-09-03] MEDS: Methocarbamol 500 MG Tablet PO (12:09)
--- NOTE | 2023-09-03 12:16 | CASEMGMT ---
Social Work BIMS () and PHQ-9 (07/06) completed for MDS assessment. SW explored positive mood responses. Pt explained she is struggling to concentrate since the surgery, which also leads to decline in interest in doing her hobbies, like reading or knitting. Pt explained she is not sleeping well d/t comfort and denied any suggested intervention, hopeful once she returns home to her regular sleeping habits, there will be no further issues. Pt agreed to notify this worker or staff of any changes or interventions. SW will continue to to monitor. EDGAR Landry
--- NOTE | 2023-09-03 13:03 | PCM.PN.DRR ---
Documented by User: Kim Ely 09/03/23 16:01 TCU RX Drug Regimen Review Subjective/Objective Subjective/Objective: Subjective: TCU Admission. 83 YOF presented to outside ED with a fall. Hospitalized for right femur fracture, underwent ORIF right femur 08/22/[address] Person. Admitted to TCU with debility for strengthening and rehabilitation. Objective: Allergies fentanyl Allergy (Verified 06/16/21 09:08) Itching codeine Adverse Reaction (Verified 06/16/21 09:08) Nausea/Vom/Diarrhea Penicillins Adverse Reaction (Verified 06/16/21 09:08) Unknown per pt was told since child very sensitive to pcn Current Medications Generic Name Dose Route Start Last Admin Trade Name Freq PRN Reason Stop Dose Admin Ascorbic Acid 500 mg 08/28/23 22:00 09/03/23 08:25 Ascorbic Acid 500 Mg Tablet PO 500 mg BID SJ Administration Aspirin 81 mg 08/29/23 08:00 09/03/23 08:24 Aspirin E.C. 81 Mg Tablet PO 81 mg DAILYCM SJ Administration Atorvastatin Calcium 10 mg 08/28/23 22:00 09/02/23 21:50 Atorvastatin Calcium 10 Mg Tablet PO 10 mg QHS SJ Administration Cholecalciferol 25 mcg 08/28/23 22:00 09/03/23 08:25 Cholecalciferol (Vit D3) 25 Mcg Tablet (1,000 Units) PO 25 mcg BID SJ Administration Clopidogrel Bisulfate 75 mg 08/29/23 10:00 09/03/23 08:24 Clopidogrel Bisulfate 75 Mg Tablet PO 75 mg DAILY SJ Administration Diphenhydramine HCl 50 mg 08/30/23 22:00 09/02/23 21:49 Diphenhydramine 25 Mg Capsule PO 50 mg QHS SJ Administration Duloxetine HCl 20 mg 08/29/23 10:00 09/03/23 08:24 Duloxetine Hcl 20 Mg Capsule PO 20 mg DAILY SJ Administration Fluticasone Propionate 1 spray 08/28/23 16:34 Fluticasone 0.05% 1 [place] Nasal.Sry NASAL DAILY PRN allergy symptoms Magnesium Chloride 128 mg 08/30/23 22:00 09/02/23 21:50 Magnesium Chloride 64 Mg Delay Rel.Tablet PO 128 mg QHS SJ Administration Magnesium Citrate 300 ml 08/28/23 17:13 Magnesium Citrate 300 Ml PO DAILY PRN Constipation Methocarbamol 500 mg 08/28/23 16:34 09/03/23 12:09 Methocarbamol 500 Mg Tablet PO 500 mg TID PRN Administration Muscle Spasms Naproxen 250 mg 09/01/23 17:05 09/03/23 12:10 Naproxen 250 Mg Tablet PO 250 mg 4X/DAY PRN PRN Administration Pain Score 1-10 Nitroglycerin 0.4 mg 08/28/23 17:05 Nitroglycerin (Inpatient Use) 0.4 Mg Tab.Subl SL Q5M PRN CARDIAC/CHEST PAIN Pantoprazole Sodium 40 mg 08/28/23 22:00 09/03/23 08:25 Pantoprazole Sodium 40 Mg Tablet PO 40 mg BID SJ Administration Polyethylene Glycol 17 gm 08/29/23 11:00 Polyethylene Glycol 3350 17 Gm Packet PO DAILY PRN Constipation Senna/Docusate Sodium 2 tablet 08/29/23 22:00 09/03/23 08:25 Senna/Docusate Sodium 1 Tablet PO Not Given BID SJ Sodium Chloride 10 - 40 ml 08/29/23 14:45 0.9% Saline Lock 10 Ml Syringe IV UD PRN SALINE FLUSH Tuberculin PPD 0.1 ml 09/05/23 10:00 Tuberculin,Purif.Prot.Deriv. 50 Tu/Ml Vial ID 09/05/23 10:01 X1 ONE Vitamin E 400 units 08/28/23 22:00 09/03/23 08:24 Vitamin E 400 Units Capsule PO 400 units BIDCM SJ Administration Problem List (Updated 08/31/23 @ 07:[address] Giovanni Martinez MD) Right femoral fracture (Acute) GERD (gastroesophageal reflux disease) (Acute) Stroke (Acute) Depression (Acute) Vitamin D deficiency (Acute) Debility (Acute) Hyperlipidemia (Chronic) Vital Signs Temp Pulse Resp BP Pulse Ox O2 Del Method 98.4 F 72 16 124/63 H 99 Room Air 09/03/23 10:29 09/03/23 10:29 09/03/23 10:29 09/03/23 10:29 09/03/23 10:09/03/23 10:29 Oxygen Delivery Method Room Air Weight: 60.781 kg Body Mass Index (BMI) 23.7 Sodium 140 mmol/L (136-145) 08/29/23 07:22 Potassium 3.5 mmol/L (3.5-5.1) 08/29/23 07:22 Chloride 110 mmol/L (98-107) H 08/29/23 07:22 Carbon Dioxide 26.0 mmol/L (21.0-32.0) 08/29/23 07:22 Anion Gap 4 (5-15) L 08/29/23 07:22 BUN 17 mg/dL (7-18) 08/29/23 07:22 Creatinine 0.44 mg/dL (0.55-1.02) L 08/29/23 07:22 Est GFR (MDRD) Af Amer 179 mL/min (>60) 08/29/23 07:22 Est GFR (MDRD) Non-Af 148 mL/min (>60) 08/29/23 07:22 BUN/Creatinine Ratio 39.1 RATIO (10-20) H 08/29/23 07:22 Glucose 125 mg/dL (74-106) H 08/29/23 07:22 Assessment/Plan: 1. Pain: naproxen 250mg PO 4x/day PRN pain 1-10. Resident has had 9 total doses of naproxen for various pain scores in thigh/right leg and foot. Please continue to monitor for increased pain, S/S of bleeding, renal function and PRN usage. 2. Bowel: Miralax 17gm PO daily PRN constipation, senna/docusate 1T PO BID and magnesium citrate 300mL PO daily PRN constipation. No PRN doses have been given. Please consider changing senna/docusate to PRN constipation as the resident has refused the last 4/5 doses. Thanks. Please continue to monitor for constipation and PRN usage. Last documented bowel movement 09/01. 3. Stroke: aspirin 81mg PO DAILYCM and clopidogrel 75mg PO daily. Please continue to monitor for S/S of bleeding and hemoglobin (last 9.4g/dL). 4. Nonobstructive CAD: nitroglycerin 0.4mg SL Q5M PRN chest pain. Resident has not used any doses so far. Please continue to monitor for chest pain and PRN usage. 5. Hyperlipidemia: atorvastatin 10mg PO QHS. Please consider ordering a lipid panel and LFTs as resident does not have any history of these in the chart. Thanks. Please continue to monitor for muscle pain. 6. GERD: pantoprazole 40gm PO BID. Please continue to monitor for S/S of GERD, diarrhea (BEERS medication) and magnesium. 7. Muscle spasm: methocarbamol 500mg TID PRN muscle spasms. Resident has received 2 doses of methocarbamol. Please continue to monitor for S/S of muscle spasms, anticholinergic side effects (BEERs medication) and PRN usage. 8. Allergic rhinitis: fluticasone nasal spray 0.05% 1 spray nasal daily PRN allergies. No PRN doses have been given. Please continue to monitor for S/S of allergies and PRN usage. 9. Hypomagnesemia: magnesium chloride 128mg PO QHS. Please consider ordering a magnesium level as the last level is from 2017. Thanks. 10. Insomnia: diphenhydramine 50mg PO QHS. Please continue to monitor for anticholinergic side effects (BEERs medication), dementia/delirium (BEERs medication). 11. Vitamin D/C/E deficiencies: ascorbic acid 500mg PO BID, cholecalciferol 25mcg PO BID and vitamin E 400IU PO BID. Please consider ordering a vitamin D level as the resident does not have one in the chart. Thanks. Assessment/Plan for indications treated with psychotropic medications: 1. Depression: duloxetine 20mg PO daily. Please see physician note regarding GDR. Please continue to monitor for S/S of suicidal ideation (black box warning), weight gain, sodium (last 140mmol/L) and falls/fractures (BEERs medication). Medical chart and medication regimen reviewed. The following medication irregularities or issues were identified: 1. Senna/docusate 1T PO BID. Please consider changing senna/docusate to PRN constipation as the resident has refused the last 4/5 doses. Thanks. 2. Atorvastatin 10mg PO QHS. Please consider ordering a lipid panel and LFTs as resident does not have any history of these in the chart. Thanks. 3. Magnesium chloride 128mg PO QHS. Please consider ordering a magnesium level as the last level is from 2017. Thanks. 4. Cholecalciferol 25mcg PO BID. Please consider ordering a vitamin D level as the resident does not have one in the chart. Thanks. Date Date of Note:: 09/03/23 Documented by User: Dr. Giovanni Martinez MD 09/03/23 18:02 TCU RX Drug Regimen Review Provider Comments Provider responsibility Provider Comments to Recommendations by Pharmacy: Agree
[2023-09-03] MEDS: Magnesium Chloride 64 MG Delay Rel.Tablet 128 MG PO (22:03)
[2023-09-03] MEDS: DiphenhydrAMINE 25 MG Capsule 50 MG PO (22:03)
[2023-09-03] MEDS: Atorvastatin Calcium 10 MG Tablet PO (22:03)
[2023-09-03] MEDS: Senna/Docusate Sodium 1 Tablet 2 TABLET PO (22:05)
[2023-09-04 06:02] LABS: Hemoglobin 9.1 g/dL (12.0-15.0)
[2023-09-04 06:48] LABS: Cholesterol 143 mg/dL (200); High Density Lipoprotein 42 mg/dL; Magnesium 2.5 mg/dL (1.6-2.6); Triglycerides 63 mg/dL; Very Low Density Lipoprotein 13 mg/dL (5-40)
[2023-09-04 09:17] VITALS: BP 125/51; PULSE 90; RESP 16; TEMP 36.8; O2SAT 98
[2023-09-04] MEDS: Aspirin E.C. 81 MG Tablet PO (09:20)
[2023-09-04] MEDS: Cholecalciferol (VIT D3) 25 MCG TABLET (1,000 UNITS) PO ×2 (09:21→21:37)
[2023-09-04] MEDS: Pantoprazole Sodium 40 MG Tablet PO ×2 (09:21→21:37)
[2023-09-04] MEDS: Clopidogrel Bisulfate 75 MG Tablet PO (09:21)
[2023-09-04] MEDS: Ascorbic Acid 500 MG Tablet PO ×2 (09:21→21:38)
[2023-09-04] MEDS: DULoxetine Hcl 20 MG Capsule PO (09:21)
[2023-09-04] MEDS: Vitamin E 400 UNITS Capsule PO ×2 (09:21→17:58)
--- NOTE | 2023-09-04 09:21 | NURSING ---
Performance Engineer Note; MDS for 09/04/2023 Complete
[2023-09-04] MEDS: Acetaminophen 500 MG Tablet 1000 MG PO (09:24)
[2023-09-04] MEDS: Methocarbamol 500 MG Tablet PO (10:53)
--- NOTE | 2023-09-04 16:54 | NURSING ---
Patient requesting Tylenol for pain. Updated Dr. Martinez. New order obtained.
[2023-09-04] MEDS: Senna/Docusate Sodium 1 Tablet 2 TABLET PO (21:36)
[2023-09-04] MEDS: DiphenhydrAMINE 25 MG Capsule 50 MG PO (21:37)
[2023-09-04] MEDS: Atorvastatin Calcium 10 MG Tablet PO (21:38)
[2023-09-04] MEDS: Magnesium Chloride 64 MG Delay Rel.Tablet 128 MG PO (21:38)
[2023-09-04 21:49] VITALS: PULSE 91; RESP 16; O2SAT 98
[2023-09-05] MEDS: Acetaminophen 500 MG Tablet 1000 MG PO ×3 (02:52→22:32)
[2023-09-05] MEDS: Vitamin E 400 UNITS Capsule PO ×2 (08:04→16:24)
[2023-09-05] MEDS: Cholecalciferol (VIT D3) 25 MCG TABLET (1,000 UNITS) PO ×2 (08:04→22:32)
[2023-09-05] MEDS: Ascorbic Acid 500 MG Tablet PO ×2 (08:05→22:32)
[2023-09-05] MEDS: Pantoprazole Sodium 40 MG Tablet PO ×2 (08:05→22:31)
[2023-09-05] MEDS: Clopidogrel Bisulfate 75 MG Tablet PO (08:05)
[2023-09-05] MEDS: Aspirin E.C. 81 MG Tablet PO (08:05)
[2023-09-05] MEDS: DULoxetine Hcl 20 MG Capsule PO (08:05)
[2023-09-05 09:13] LABS: Absolute Lymphocyte Count 0.89 X10^3/uL (0.83-4.51); Absolute Neutrophil Count 6.5 X10^3/uL (2.0-7.7); Basophil# 0.09 X10^3/uL; Basophil% 1.1 % (0-1); Eosinophil# 0.28 X10^3/uL; Eosinophils% 3.3 % (0-5); Hematocrit 30.5 % (37-47); Hemoglobin 9.4 g/dL (12.0-15.0); Lymphocyte # 0.89 X10^3/ul (0.83-4.51); Lymphocyte % 10.5 % (19-41); Mean Corp Hgb Conc 30.8 g/dL (32-36); Mean Corpuscular Hgb 30.8 pg (27.0-32.0); Mean Platelet Vol. 8.6 fl (6.2-12.0); Monocyte% 7.1 % (0-10); NRBC Flagged by Analyzer 0 % (0-5); Neutrophil # 6.53 X10^3/uL (2.7-7.7); Neutrophil % 77.2 % (47-70); Platelet Count 486 K/mm3 (150-450); RBC Distribution Width CV 17.2 % (11.6-14.6); Red Blood Count 3.05 M/mm3 (4.2-5.4); White Blood Count 8.5 K/mm3 (4.4-11.0)
[2023-09-05 09:33] LABS: Anion Gap 5 (5-15); BUN 15 mg/dL (7-18); Calcium,Total 8.5 mg/dL (8.5-10.1); Chloride 109 mmol/L (98-107); Creatinine, Serum 0.58 mg/dL (0.55-1.02); EST Glomerular Filtration Rate 106 mL/min (>60); Est Glom Filt Rate - Afr Amer 129 mL/min (>60); Estimated Creatinine Clearance 47.34 ml/min; Glucose 132 mg/dL (74-106); Potassium 2.8 mmol/L (3.5-5.1); Sodium Level 138 mmol/L (136-145)
--- NOTE | 2023-09-05 10:01 | NURSING ---
Dr. Martinez updated on pt's K+ of 2.8. N.O. Received for 60meq now and 20meq Daily starting tomorrow. Repeat BMP 09/05&09/06. Orders read back
[2023-09-05] MEDS: Potassium Chloride Oral Tablet 20 MEQ 60 MEQ PO (11:22)
[2023-09-05] MEDS: Tuberculin,Purif.prot.deriv. 50 TU/ML Vial 0.100000000000000006 ML ID (11:22)
[2023-09-05 13:24] VITALS: BP 131/55; PULSE 91; RESP 18; TEMP 36.7; O2SAT 98
[2023-09-05 20:20] VITALS: PULSE 86; RESP 16; O2SAT 98
[2023-09-05] MEDS: DiphenhydrAMINE 25 MG Capsule 50 MG PO (22:30)
[2023-09-05] MEDS: Magnesium Chloride 64 MG Delay Rel.Tablet 128 MG PO (22:31)
[2023-09-05] MEDS: Atorvastatin Calcium 10 MG Tablet PO (22:31)
[2023-09-06] MEDS: Senna/Docusate Sodium 1 Tablet 2 TABLET PO ×2 (04:31→22:35)
[2023-09-06] MEDS: Acetaminophen 500 MG Tablet 1000 MG PO ×4 (04:32→22:31)
[2023-09-06 07:04] LABS: Anion Gap 0 (5-15); BUN 17 mg/dL (7-18); Calcium,Total 8.6 mg/dL (8.5-10.1); Chloride 113 mmol/L (98-107); Creatinine, Serum 0.47 mg/dL (0.55-1.02); EST Glomerular Filtration Rate 134 mL/min (>60); Est Glom Filt Rate - Afr Amer 163 mL/min (>60); Estimated Creatinine Clearance 47.34 ml/min; Glucose 97 mg/dL (74-106); Potassium 3.9 mmol/L (3.5-5.1); Sodium Level 139 mmol/L (136-145)
[2023-09-06] MEDS: Clopidogrel Bisulfate 75 MG Tablet PO (09:16)
[2023-09-06] MEDS: Potassium Chloride Oral Tablet 20 MEQ PO ×2 (09:16→16:23)
[2023-09-06] MEDS: Pantoprazole Sodium 40 MG Tablet PO ×2 (09:16→22:32)
[2023-09-06] MEDS: DULoxetine Hcl 20 MG Capsule PO (09:16)
[2023-09-06] MEDS: Aspirin E.C. 81 MG Tablet PO (09:16)
[2023-09-06] MEDS: Ascorbic Acid 500 MG Tablet PO ×2 (09:16→22:32)
[2023-09-06] MEDS: Vitamin E 400 UNITS Capsule PO ×2 (09:16→16:23)
[2023-09-06] MEDS: Cholecalciferol (VIT D3) 25 MCG TABLET (1,000 UNITS) PO ×2 (09:16→22:32)
[2023-09-06 10:00] VITALS: RESP 16; O2SAT 97
[2023-09-06 15:07] VITALS: BP 137/61; PULSE 85; RESP 16; TEMP 36.5; O2SAT 97
[2023-09-06] MEDS: DiphenhydrAMINE 25 MG Capsule 50 MG PO (22:32)
[2023-09-06] MEDS: Atorvastatin Calcium 10 MG Tablet PO (22:33)
[2023-09-06] MEDS: Magnesium Chloride 64 MG Delay Rel.Tablet 128 MG PO (22:33)
[2023-09-07 05:50] LABS: Hematocrit 30.4 % (37-47); Hemoglobin 9.4 g/dL (12.0-15.0)
[2023-09-07 06:26] LABS: Anion Gap 4 (5-15); BUN 12 mg/dL (7-18); BUN/Creat Ratio 23.4 RATIO (10-20); Calcium,Total 8.7 mg/dL (8.5-10.1); Chloride 112 mmol/L (98-107); Creatinine, Serum 0.51 mg/dL (0.55-1.02); EST Glomerular Filtration Rate 122 mL/min (>60); Est Glom Filt Rate - Afr Amer 148 mL/min (>60); Estimated Creatinine Clearance 47.34 ml/min; Glucose 96 mg/dL (74-106); Potassium 3.9 mmol/L (3.5-5.1); Sodium Level 140 mmol/L (136-145)
[2023-09-07] MEDS: Potassium Chloride Oral Tablet 20 MEQ PO ×2 (09:18→16:51)
[2023-09-07] MEDS: Ascorbic Acid 500 MG Tablet PO ×2 (09:19→22:21)
[2023-09-07] MEDS: Pantoprazole Sodium 40 MG Tablet PO ×2 (09:19→22:21)
[2023-09-07] MEDS: Vitamin E 400 UNITS Capsule PO ×2 (09:19→16:51)
[2023-09-07] MEDS: Aspirin E.C. 81 MG Tablet PO (09:19)
[2023-09-07] MEDS: DULoxetine Hcl 20 MG Capsule PO (09:19)
[2023-09-07] MEDS: Clopidogrel Bisulfate 75 MG Tablet PO (09:19)
[2023-09-07] MEDS: Cholecalciferol (VIT D3) 25 MCG TABLET (1,000 UNITS) PO ×2 (09:19→22:21)
[2023-09-07] MEDS: Acetaminophen 500 MG Tablet 1000 MG PO ×3 (09:22→22:25)
[2023-09-07 09:24] VITALS: BP 133/78; PULSE 87; RESP 16; O2SAT 98
[2023-09-07 12:08] LABS: Vitamin D 1,25-Dihydroxy 45.1 pg/mL (24.8-81.5)
[2023-09-07 13:31] VITALS: TEMP 36.8
--- NOTE | 2023-09-07 16:46 | CHAPLAIN ---
Type of Pastoral Visit _x__ Initial Visit ___ Follow-up Visit ___ On-call Visit ___ General Patient Visit ___ Spiritual Assessment ___ Family Conference ___ Bereavement ___ Rapid Response ___ Code Blue ___ Other (describe below) Pastoral Care Referral From _x__ Patient ___ Family ___ Nurse ___ Physician ___ Dredge Engineer ___ Punching Machine Operator ___ Other (describe below) Sacrament/Intervention _x__ Active listening ___ Anointing ___ Moravian ___ Bereavement ___ Communion _x__ Kerry exploration ___ _x__ Life review _x__ Prayer ___ Reconciliation ___ Sacrament of Sick _x__ Supportive presence ___ Wedding ___ Other (describe below) Pastoral Comments patient is welcoming but also speaks in a negative way about my accident that was so stupid and I'm bored in here even though I have all that I need from home to keep me active ; pt is of the Oriental Orthodox kerry and would appreciate communion if possible; this fine arts model will get pt on the list for communion; pt talks about her family that is scattered everywhere and that's okay ; pt has pets at home that keep her company and a friend is caring for them now; pt reports her only need as that of someone keeping me company ; offer of future support given as she desires; pt welcomes a prayer today for support
[2023-09-07 22:00] VITALS: PULSE 81; O2SAT 98
[2023-09-07] MEDS: Atorvastatin Calcium 10 MG Tablet PO (22:21)
[2023-09-07] MEDS: DiphenhydrAMINE 25 MG Capsule 50 MG PO (22:21)
[2023-09-07] MEDS: Magnesium Chloride 64 MG Delay Rel.Tablet 128 MG PO (22:21)
[2023-09-08] MEDS: Acetaminophen 500 MG Tablet 1000 MG PO ×3 (06:16→21:09)
[2023-09-08] MEDS: Aspirin E.C. 81 MG Tablet PO (08:33)
[2023-09-08] MEDS: DULoxetine Hcl 20 MG Capsule PO (08:33)
[2023-09-08] MEDS: Ascorbic Acid 500 MG Tablet PO ×2 (08:33→21:12)
[2023-09-08] MEDS: Vitamin E 400 UNITS Capsule PO ×2 (08:33→18:02)
[2023-09-08] MEDS: Potassium Chloride Oral Tablet 20 MEQ PO ×2 (08:33→18:02)
[2023-09-08] MEDS: Clopidogrel Bisulfate 75 MG Tablet PO (08:34)
[2023-09-08] MEDS: Cholecalciferol (VIT D3) 25 MCG TABLET (1,000 UNITS) PO ×2 (08:34→21:11)
[2023-09-08] MEDS: Pantoprazole Sodium 40 MG Tablet PO ×2 (08:34→21:11)
[2023-09-08 09:56] VITALS: BMI 22.9
[2023-09-08 15:04] VITALS: BP 134/68; PULSE 96; RESP 18; TEMP 36.8; O2SAT 96
[2023-09-08] MEDS: Magnesium Chloride 64 MG Delay Rel.Tablet 128 MG PO (21:10)
[2023-09-08] MEDS: Atorvastatin Calcium 10 MG Tablet PO (21:10)
[2023-09-08] MEDS: DiphenhydrAMINE 25 MG Capsule 50 MG PO (21:10)
[2023-09-09] MEDS: Acetaminophen 500 MG Tablet 1000 MG PO ×3 (03:35→20:57)
[2023-09-09 06:02] LABS: Hematocrit 32.5 % (37-47); Hemoglobin 9.8 g/dL (12.0-15.0)
[2023-09-09] MEDS: Pantoprazole Sodium 40 MG Tablet PO ×2 (08:33→20:58)
[2023-09-09] MEDS: Aspirin E.C. 81 MG Tablet PO (08:33)
[2023-09-09] MEDS: Clopidogrel Bisulfate 75 MG Tablet PO (08:34)
[2023-09-09] MEDS: Ascorbic Acid 500 MG Tablet PO ×2 (08:34→20:57)
[2023-09-09] MEDS: Vitamin E 400 UNITS Capsule PO ×2 (08:34→16:30)
[2023-09-09] MEDS: Cholecalciferol (VIT D3) 25 MCG TABLET (1,000 UNITS) PO ×2 (08:34→20:58)
[2023-09-09] MEDS: DULoxetine Hcl 20 MG Capsule PO (08:34)
[2023-09-09] MEDS: Potassium Chloride Oral Tablet 20 MEQ PO ×2 (08:34→16:30)
[2023-09-09] MEDS: Iron Polysaccharide Complex 150 MG CAPSULE PO (11:46)
[2023-09-09 14:31] VITALS: BP 128/57; PULSE 92; RESP 14; TEMP 36.2; O2SAT 96
--- NOTE | 2023-09-09 16:00 | NURSING ---
Updated pt on positive Covid pt on unit. Pt will updated family.
[2023-09-09] MEDS: Magnesium Chloride 64 MG Delay Rel.Tablet 128 MG PO (20:58)
[2023-09-09] MEDS: DiphenhydrAMINE 25 MG Capsule 50 MG PO (20:58)
[2023-09-09] MEDS: Senna/Docusate Sodium 1 Tablet 2 TABLET PO (20:58)
[2023-09-09] MEDS: Atorvastatin Calcium 10 MG Tablet PO (20:58)
[2023-09-09 21:28] VITALS: PULSE 88; RESP 16; O2SAT 96
[2023-09-10 05:56] LABS: Hematocrit 32.2 % (37-47); Hemoglobin 9.9 g/dL (12.0-15.0)
--- NOTE | 2023-09-10 07:47 | MDS.RN ---
Information for the mds was obtained from review of the clinical record, interview of resident, staff, and direct observation of resident's care.
[2023-09-10] MEDS: Acetaminophen 500 MG Tablet 1000 MG PO ×2 (09:56→21:38)
[2023-09-10] MEDS: Potassium Chloride Oral Tablet 20 MEQ PO ×2 (09:56→17:11)
[2023-09-10] MEDS: Cholecalciferol (VIT D3) 25 MCG TABLET (1,000 UNITS) PO ×2 (09:57→21:39)
[2023-09-10] MEDS: Ascorbic Acid 500 MG Tablet PO ×2 (09:57→21:39)
[2023-09-10] MEDS: Clopidogrel Bisulfate 75 MG Tablet PO (09:57)
[2023-09-10] MEDS: Aspirin E.C. 81 MG Tablet PO (09:57)
[2023-09-10] MEDS: Vitamin E 400 UNITS Capsule PO ×2 (09:57→17:11)
[2023-09-10] MEDS: Pantoprazole Sodium 40 MG Tablet PO ×2 (09:57→21:40)
[2023-09-10] MEDS: DULoxetine Hcl 20 MG Capsule PO (09:57)
[2023-09-10 10:00] VITALS: PULSE 89; O2SAT 99
[2023-09-10 15:04] VITALS: BP 131/60; PULSE 89; RESP 18; TEMP 36.7; O2SAT 99
[2023-09-10] MEDS: Senna/Docusate Sodium 1 Tablet 2 TABLET PO (21:38)
[2023-09-10] MEDS: DiphenhydrAMINE 25 MG Capsule 50 MG PO (21:39)
[2023-09-10] MEDS: Magnesium Chloride 64 MG Delay Rel.Tablet 128 MG PO (21:40)
[2023-09-10] MEDS: Atorvastatin Calcium 10 MG Tablet PO (21:40)
[2023-09-11] MEDS: Acetaminophen 500 MG Tablet 1000 MG PO ×2 (06:07→20:49)
[2023-09-11] MEDS: Potassium Chloride Oral Tablet 20 MEQ PO ×2 (09:26→17:48)
[2023-09-11] MEDS: Iron Polysaccharide Complex 150 MG CAPSULE PO (09:26)
[2023-09-11] MEDS: Aspirin E.C. 81 MG Tablet PO (09:26)
[2023-09-11] MEDS: Vitamin E 400 UNITS Capsule PO ×2 (09:26→17:48)
[2023-09-11] MEDS: DULoxetine Hcl 20 MG Capsule PO (09:26)
[2023-09-11] MEDS: Clopidogrel Bisulfate 75 MG Tablet PO (09:26)
[2023-09-11] MEDS: Ascorbic Acid 500 MG Tablet PO ×2 (09:26→20:51)
[2023-09-11] MEDS: Pantoprazole Sodium 40 MG Tablet PO ×2 (09:26→20:50)
[2023-09-11] MEDS: Cholecalciferol (VIT D3) 25 MCG TABLET (1,000 UNITS) PO ×2 (09:27→20:51)
[2023-09-11 16:00] VITALS: BP 157/65; PULSE 83; RESP 17; TEMP 36.8; O2SAT 97
--- NOTE | 2023-09-11 18:11 | NURSING ---
Patient returned from ortho appt. Ok to shower. Patient to follow-up in 4 weeks, appt made and added to DC instructions. May leave incision site MARY CARMEN.
[2023-09-11] MEDS: Magnesium Chloride 64 MG Delay Rel.Tablet 128 MG PO (20:50)
[2023-09-11] MEDS: Atorvastatin Calcium 10 MG Tablet PO (20:50)
[2023-09-11] MEDS: DiphenhydrAMINE 25 MG Capsule 50 MG PO (20:50)
[2023-09-11] MEDS: Senna/Docusate Sodium 1 Tablet 2 TABLET PO (20:54)
[2023-09-12] MEDS: Acetaminophen 500 MG Tablet 1000 MG PO ×3 (04:05→21:11)
[2023-09-12 08:29] LABS: Absolute Lymphocyte Count 1.13 X10^3/uL (0.83-4.51); Absolute Neutrophil Count 4.8 X10^3/uL (2.0-7.7); Basophil# 0.09 X10^3/uL; Basophil% 1.3 % (0-1); Eosinophil# 0.24 X10^3/uL; Eosinophils% 3.5 % (0-5); Hematocrit 35.5 % (37-47); Hemoglobin 10.8 g/dL (12.0-15.0); Lymphocyte # 1.13 X10^3/ul (0.83-4.51); Lymphocyte % 16.3 % (19-41); Mean Corp Hgb Conc 30.4 g/dL (32-36); Mean Corpuscular Hgb 30.9 pg (27.0-32.0); Mean Corpuscular Volume 101.4 fL (81-99); Mean Platelet Vol. 8.4 fl (6.2-12.0); Monocyte# 0.61 X10^3/uL; Monocyte% 8.8 % (0-10); NRBC Flagged by Analyzer 0 % (0-5); Neutrophil % 69.4 % (47-70); Platelet Count 454 K/mm3 (150-450); RBC Distribution Width CV 17.1 % (11.6-14.6); White Blood Count 6.9 K/mm3 (4.4-11.0)
[2023-09-12 08:51] LABS: Anion Gap 3 (5-15); BUN 16 mg/dL (7-18); BUN/Creat Ratio 29.5 RATIO (10-20); Calcium,Total 8.7 mg/dL (8.5-10.1); Chloride 112 mmol/L (98-107); Creatinine, Serum 0.54 mg/dL (0.55-1.02); EST Glomerular Filtration Rate 114 mL/min (>60); Est Glom Filt Rate - Afr Amer 138 mL/min (>60); Estimated Creatinine Clearance 43.62 ml/min; Glucose 126 mg/dL (74-106); Potassium 3.8 mmol/L (3.5-5.1); Sodium Level 141 mmol/L (136-145)
[2023-09-12 09:19] VITALS: BP 120/54; PULSE 94; RESP 17; TEMP 36.7; O2SAT 97
[2023-09-12] MEDS: Aspirin E.C. 81 MG Tablet PO (09:23)
[2023-09-12] MEDS: Vitamin E 400 UNITS Capsule PO ×2 (09:23→17:55)
[2023-09-12] MEDS: Potassium Chloride Oral Tablet 20 MEQ PO ×2 (09:23→17:55)
[2023-09-12] MEDS: Clopidogrel Bisulfate 75 MG Tablet PO (09:24)
[2023-09-12] MEDS: DULoxetine Hcl 20 MG Capsule PO (09:24)
[2023-09-12] MEDS: Pantoprazole Sodium 40 MG Tablet PO ×2 (09:25→21:12)
[2023-09-12] MEDS: Cholecalciferol (VIT D3) 25 MCG TABLET (1,000 UNITS) PO ×2 (09:25→21:12)
[2023-09-12] MEDS: Ascorbic Acid 500 MG Tablet PO ×2 (09:25→21:12)
[2023-09-12] MEDS: Senna/Docusate Sodium 1 Tablet 2 TABLET PO (21:10)
[2023-09-12] MEDS: DiphenhydrAMINE 25 MG Capsule 50 MG PO (21:11)
[2023-09-12] MEDS: Atorvastatin Calcium 10 MG Tablet PO (21:12)
[2023-09-12] MEDS: Magnesium Chloride 64 MG Delay Rel.Tablet 128 MG PO (21:12)
[2023-09-13] MEDS: Naproxen 250 MG Tablet PO ×2 (01:50→17:47)
[2023-09-13] MEDS: Acetaminophen 500 MG Tablet 1000 MG PO ×3 (04:03→21:11)
[2023-09-13] MEDS: Methocarbamol 500 MG Tablet PO (04:03)
[2023-09-13 09:10] VITALS: BP 136/65; PULSE 88; RESP 17; TEMP 36.4; O2SAT 96
[2023-09-13] MEDS: Aspirin E.C. 81 MG Tablet PO (09:12)
[2023-09-13] MEDS: DULoxetine Hcl 20 MG Capsule PO (09:12)
[2023-09-13] MEDS: Vitamin E 400 UNITS Capsule PO ×2 (09:12→17:47)
[2023-09-13] MEDS: Potassium Chloride Oral Tablet 20 MEQ PO ×2 (09:12→17:47)
[2023-09-13] MEDS: Cholecalciferol (VIT D3) 25 MCG TABLET (1,000 UNITS) PO ×2 (09:13→21:12)
[2023-09-13] MEDS: Clopidogrel Bisulfate 75 MG Tablet PO (09:13)
[2023-09-13] MEDS: Ascorbic Acid 500 MG Tablet PO ×2 (09:13→21:12)
[2023-09-13] MEDS: Pantoprazole Sodium 40 MG Tablet PO ×2 (09:13→21:12)
[2023-09-13] MEDS: Senna/Docusate Sodium 1 Tablet 2 TABLET PO (21:10)
[2023-09-13] MEDS: DiphenhydrAMINE 25 MG Capsule 50 MG PO (21:11)
[2023-09-13] MEDS: Atorvastatin Calcium 10 MG Tablet PO (21:12)
[2023-09-13] MEDS: Magnesium Chloride 64 MG Delay Rel.Tablet 128 MG PO (21:12)
--- NOTE | 2023-09-13 21:21 | NURSING ---
Spoke w/ Dr. Martinez via phone reporting pt refusing Ferrex d/t GI upset and requesting med be dc'ed. Telephone order received and read back to MELVIN Alvarado.
[2023-09-14] MEDS: Naproxen 250 MG Tablet PO ×2 (02:26→09:39)
[2023-09-14] MEDS: Acetaminophen 500 MG Tablet 1000 MG PO ×3 (06:32→21:38)
[2023-09-14] MEDS: Methocarbamol 500 MG Tablet PO (06:33)
[2023-09-14] MEDS: DULoxetine Hcl 20 MG Capsule PO (08:25)
[2023-09-14] MEDS: Clopidogrel Bisulfate 75 MG Tablet PO (08:25)
[2023-09-14] MEDS: Potassium Chloride Oral Tablet 20 MEQ PO ×2 (08:25→17:10)
[2023-09-14] MEDS: Aspirin E.C. 81 MG Tablet PO (08:25)
[2023-09-14] MEDS: Pantoprazole Sodium 40 MG Tablet PO ×2 (08:25→21:37)
[2023-09-14] MEDS: Vitamin E 400 UNITS Capsule PO ×2 (08:25→17:10)
[2023-09-14] MEDS: Ascorbic Acid 500 MG Tablet PO ×2 (08:25→21:38)
[2023-09-14] MEDS: Cholecalciferol (VIT D3) 25 MCG TABLET (1,000 UNITS) PO ×2 (08:25→21:38)
[2023-09-14 15:42] VITALS: BP 162/65; PULSE 88; RESP 16; TEMP 36.6; O2SAT 97
[2023-09-14 19:50] VITALS: PULSE 88; RESP 16; O2SAT 96
[2023-09-14] MEDS: Atorvastatin Calcium 10 MG Tablet PO (21:37)
[2023-09-14] MEDS: Magnesium Chloride 64 MG Delay Rel.Tablet 128 MG PO (21:37)
[2023-09-14] MEDS: DiphenhydrAMINE 25 MG Capsule 50 MG PO (21:37)
[2023-09-14] MEDS: Senna/Docusate Sodium 1 Tablet 2 TABLET PO (21:38)
[2023-09-15] MEDS: Naproxen 250 MG Tablet PO ×2 (03:27→15:58)
[2023-09-15] MEDS: Ascorbic Acid 500 MG Tablet PO ×2 (09:13→21:55)
[2023-09-15] MEDS: Cholecalciferol (VIT D3) 25 MCG TABLET (1,000 UNITS) PO ×2 (09:13→21:56)
[2023-09-15] MEDS: Vitamin E 400 UNITS Capsule PO ×2 (09:13→15:59)
[2023-09-15] MEDS: Pantoprazole Sodium 40 MG Tablet PO ×2 (09:13→21:55)
[2023-09-15] MEDS: Aspirin E.C. 81 MG Tablet PO (09:13)
[2023-09-15] MEDS: Clopidogrel Bisulfate 75 MG Tablet PO (09:13)
[2023-09-15] MEDS: Potassium Chloride Oral Tablet 20 MEQ PO ×2 (09:13→15:59)
[2023-09-15] MEDS: DULoxetine Hcl 20 MG Capsule PO (09:13)
[2023-09-15] MEDS: Acetaminophen 500 MG Tablet 1000 MG PO ×2 (09:20→21:54)
[2023-09-15 10:00] VITALS: PULSE 96; O2SAT 97
[2023-09-15 11:27] VITALS: BP 131/63; PULSE 131; RESP 20; TEMP 36.7; O2SAT 97
[2023-09-15 16:00] VITALS: BMI 22.4
[2023-09-15] MEDS: Senna/Docusate Sodium 1 Tablet 2 TABLET PO (21:54)
[2023-09-15] MEDS: Magnesium Chloride 64 MG Delay Rel.Tablet 128 MG PO (21:55)
[2023-09-15] MEDS: Atorvastatin Calcium 10 MG Tablet PO (21:55)
[2023-09-15] MEDS: DiphenhydrAMINE 25 MG Capsule 50 MG PO (21:55)
[2023-09-16] MEDS: Acetaminophen 500 MG Tablet 1000 MG PO ×2 (06:13→21:36)
[2023-09-16 07:49] VITALS: PULSE 82; O2SAT 98
[2023-09-16 08:40] VITALS: BP 141/55; PULSE 82; RESP 14; TEMP 36.6; O2SAT 98
[2023-09-16] MEDS: Potassium Chloride Oral Tablet 20 MEQ PO ×2 (10:24→17:14)
[2023-09-16] MEDS: Vitamin E 400 UNITS Capsule PO ×2 (10:24→17:14)
[2023-09-16] MEDS: Aspirin E.C. 81 MG Tablet PO (10:24)
[2023-09-16] MEDS: Clopidogrel Bisulfate 75 MG Tablet PO (10:25)
[2023-09-16] MEDS: Ascorbic Acid 500 MG Tablet PO ×2 (10:25→21:37)
[2023-09-16] MEDS: DULoxetine Hcl 20 MG Capsule PO (10:25)
[2023-09-16] MEDS: Pantoprazole Sodium 40 MG Tablet PO ×2 (10:25→21:37)
[2023-09-16] MEDS: Cholecalciferol (VIT D3) 25 MCG TABLET (1,000 UNITS) PO ×2 (10:26→21:37)
[2023-09-16] MEDS: Naproxen 250 MG Tablet PO (11:24)
[2023-09-16 16:18] VITALS: BP 137/66; PULSE 86; RESP 14; TEMP 36.9; O2SAT 96
[2023-09-16] MEDS: Atorvastatin Calcium 10 MG Tablet PO (21:37)
[2023-09-16] MEDS: DiphenhydrAMINE 25 MG Capsule 50 MG PO (21:37)
[2023-09-16] MEDS: Magnesium Chloride 64 MG Delay Rel.Tablet 128 MG PO (21:38)
[2023-09-16] MEDS: Senna/Docusate Sodium 1 Tablet 2 TABLET PO (21:41)
[2023-09-17] MEDS: Naproxen 250 MG Tablet PO (06:54)
[2023-09-17 08:43] VITALS: BP 136/63; PULSE 89; RESP 17; TEMP 37.2; O2SAT 98
[2023-09-17] MEDS: Potassium Chloride Oral Tablet 20 MEQ PO ×2 (08:45→17:39)
[2023-09-17] MEDS: Vitamin E 400 UNITS Capsule PO ×2 (08:45→17:39)
[2023-09-17] MEDS: Aspirin E.C. 81 MG Tablet PO (08:45)
[2023-09-17] MEDS: Clopidogrel Bisulfate 75 MG Tablet PO (08:46)
[2023-09-17] MEDS: Ascorbic Acid 500 MG Tablet PO ×2 (08:46→22:03)
[2023-09-17] MEDS: DULoxetine Hcl 20 MG Capsule PO (08:46)
[2023-09-17] MEDS: Cholecalciferol (VIT D3) 25 MCG TABLET (1,000 UNITS) PO ×2 (08:46→22:03)
[2023-09-17] MEDS: Pantoprazole Sodium 40 MG Tablet PO ×2 (08:46→22:03)
[2023-09-17] MEDS: Acetaminophen 500 MG Tablet 1000 MG PO ×2 (13:11→22:03)
[2023-09-17 22:00] VITALS: PULSE 80; RESP 16; O2SAT 96
[2023-09-17] MEDS: Magnesium Chloride 64 MG Delay Rel.Tablet 128 MG PO (22:03)
[2023-09-17] MEDS: DiphenhydrAMINE 25 MG Capsule 50 MG PO (22:03)
[2023-09-17] MEDS: Atorvastatin Calcium 10 MG Tablet PO (22:03)
[2023-09-17] MEDS: Senna/Docusate Sodium 1 Tablet 2 TABLET PO (22:07)
[2023-09-18] MEDS: Acetaminophen 500 MG Tablet 1000 MG PO ×2 (04:17→22:12)
[2023-09-18] MEDS: Cholecalciferol (VIT D3) 25 MCG TABLET (1,000 UNITS) PO ×2 (09:17→22:11)
[2023-09-18] MEDS: Clopidogrel Bisulfate 75 MG Tablet PO (09:17)
[2023-09-18] MEDS: Aspirin E.C. 81 MG Tablet PO (09:17)
[2023-09-18] MEDS: Potassium Chloride Oral Tablet 20 MEQ PO ×2 (09:17→17:47)
[2023-09-18] MEDS: Pantoprazole Sodium 40 MG Tablet PO ×2 (09:17→22:12)
[2023-09-18] MEDS: DULoxetine Hcl 20 MG Capsule PO (09:17)
[2023-09-18] MEDS: Vitamin E 400 UNITS Capsule PO ×2 (09:17→17:47)
[2023-09-18] MEDS: Ascorbic Acid 500 MG Tablet PO ×2 (09:17→22:11)
[2023-09-18] MEDS: Naproxen 250 MG Tablet PO (10:56)
--- NOTE | 2023-09-18 11:57 | CASEMGMT ---
Addendum entered by Raiza Aviles 09/18/23 14:43: [facility] cannot accept d/t location. [facility] can accept. SW updated pt. Addendum entered by Raiza Aviles 09/18/23 14:19: SW followed up with pt and provided skilled HHC list. Pt prefers [facility] or [facility]. Pt also requested a BSC. SW sent referral to [facility] and [facility] via [employer]. Original Note: Social Work SW phoned dtr to follow up on DC plans. Dtr has spoken to pt and pt is ready to DC home. Dtr confirmed she will return to House and stay with pt for 1-2 weeks at DC for that transition. Dtr prefers DC 09/25. IDT agreeable. Dtr to follow up with pt as well. SW confirmed recommendations for FWW and C PT/OT. Dtr agreed. SW offered to provide list of skilled HHC agencies with quality and resource data via [employer]. Dtr prefer pt receive that list and make a selection. SW agreed. Plan: DC home 09/25, HHC PT/OT, FWW Raiza Aviles, FURNITURE RESTORER CERTIFIED TECHNICIAN SPECIALIST
--- NOTE | 2023-09-18 14:10 | PCM.DC.SUM ---
Providers Date of Admission: 08/28/23 Primary Care Physician: Dr. Cary Moon MD Reason For Visit: INTERNAL FIXATION RIGHT FEMUR Diagnosis Discharge Diagnosis (1) Debility: Status: Acute Code(s): R53.81 - Other malaise (2) Vitamin D deficiency: Status: Acute Code(s): E55.9 - Vitamin D deficiency, unspecified (3) Depression: Status: Acute Code(s): F32.A - Depression, unspecified (4) Hyperlipidemia: Status: Chronic Code(s): E78.5 - Hyperlipidemia, unspecified (5) Stroke: Status: Acute Code(s): I63.9 - Cerebral infarction, unspecified (6) GERD (gastroesophageal reflux disease): Status: Acute Code(s): K21.9 - Gastro-esophageal reflux disease without esophagitis (7) Right femoral fracture: Status: Acute Code(s): S72.91XA - Unspecified fracture of right femur, initial encounter for closed fracture Plan 83 year old female with below past medical history hospitalized for right femur fracture, underwent ORIF right femur 08/22/[address] Person, admitted to TCU with debility, here for rehabilitation, strengthening, prior to discharge home alone. Debility - PT/OT. Pain - Naproxen 250mg bid prn. Bowel - Miralax 17gm daily, senna/colace 1 tablet bid, Magnesium citrate 300ml po daily prn. Adult immunization - Administer pneumonia vaccine, covid vaccine, flu vaccine as appropriate. DVT prophylaxis - Hold, on dual antiplatelet therapy, postoperative anemia requiring transfusion. Vitamin C deficiency - Vitamin C 500mg bid. Biotin deficiency - Biotin 1 cap daily. Stroke - Aspirin 81mg daily, Plavix 75mg daily. Vitamin D deficiency - Vitamin D3 25mcg bid. Hyperlipidemia - Atorvastatin 10mg qhs. Depression - Duloxetine 20mg daily, stable chronic half-way use, GDR not recommended. Allergic rhinitis - Fluticasone 0.05% 1 spray nasal daily prn. Muscle spasm - Robaxin 500mg tid prn. Nonobstructive coronary artery disease - NTG 0.4mg sl q5m prn. GERD - Pantoprazole 40mg q12, Carafate 1gm qachs. Vitamin E deficiency - Vitamin E 400IU bid. Insomnia - Benadryl 50mg qhs, per resident request. Hypomagnesemia - Magnesium chloride 128mg qhs. Postoperative anemia - Hemoglobin 7.4, transfused 2 units PRBC, post transfusion Hemoglobin 9.2. Medications at Discharge Home Medications cholecalciferol (vitamin D3) 25 mcg (1,000 unit) tablet 1,000 unit PO BID Supplement 10/19/15 clopidogrel 75 mg tablet 75 mg PO DAILY antiplatelet #30 tabs 05/20/17 ascorbate calcium (vitamin C) 500 mg tablet 500 mg PO BID Supplement 03/21/20 aspirin 81 mg tablet,delayed release (Adult Aspirin Regimen) 81 mg PO DAILY Heart Health 03/21/20 nitroglycerin 0.4 mg sublingual tablet 0.4 mg sublingual Q5-15M PRN chest pain 03/21/20 vitamin E (dl, acetate) 180 mg (400 unit) capsule 400 unit PO DAILY Supplement 03/21/20 pantoprazole 40 mg tablet,delayed release 40 mg PO Q12H GERD 10/23/20 duloxetine 20 mg capsule,delayed release 20 mg PO DAILY Mood 08/28/23 fluticasone propionate 50 mcg/actuation nasal spray,suspension (24 Hour Allergy Relief) 1 spray intranasal DAILY PRN allergy symptoms 08/28/23 methocarbamol 500 mg tablet 500 mg PO TID PRN Muscle Spasms 08/28/23 polyethylene glycol 3350 17 gram oral powder packet 17 g PO DAILY Constipation 08/28/23 rosuvastatin 5 mg tablet (Crestor) 5 mg PO DAILY Cholesterol 08/28/23 senna-docusate sodium tablet 1 tab PO DAILY Constipation 08/28/23 acetaminophen 500 mg tablet 1,000 mg (2 x 500 mg) PO Q6H PRN PRN Pain Score 1-10 #0 tabs 09/18/23 naproxen 250 mg tablet 250 mg PO 4X/DAY PRN PRN Pain Score 1-10 #0 tabs 09/18/23 potassium chloride 20 mEq tablet,extended release(part/cryst) 20 meq PO BIDCM 30 days #60 tabs 09/18/23 Hospital Course Operations - (ORIF right femur.) Procedures None Summary of Care Provided Minutes Spent on Discharge: 35 Hospital Course: 83 year old female with below past medical history hospitalized for right femur fracture, underwent ORIF right femur 08/22/[address] Person, admitted to TCU with debility, here for rehabilitation, strengthening, prior to discharge home alone. [facility] 09/25, [facility] PT/OT, FWW. FWW: Patient is unsafe to use a cane and requires a walker for ambulation in the home and the community. Physical Exam Const alert General Appearance: cooperative HEENT normocephalic Eyes PERRL and EOMs intact bilaterally Neck supple, no JVD and no carotid bruits Resp normal respiratory effort, normal air movement and clear to auscultation bilaterally Cardio regular rate and regular rhythm GI normal to inspection, nondistended, normoactive bowel sounds, non-tender and non-distended Extremity normal capillary refill General Extremity: Negative for edema Skin no rashes or lesions noted General Skin Exam: no breakdown Psych affect normal Appearance: appropriate Weight / BMI Weight Weight: 57.516 kg Body Mass Index (BMI) 22.4 ABG / Lab / Microbiology Data 09/12/23 08:15 09/12/23 08:15 Microbiology: Microbiology 09/17/23 06:48 Nasal Secretion SARS-CoV-2 Antigen (Rapid) - Final 09/14/23 05:55 Nasal Secretion SARS-CoV-2 Antigen (Rapid) - Final 09/10/23 05:44 Nasal Secretion SARS-CoV-2 Antigen (Rapid) - Final 09/06/23 07:00 Stool Stool Occult Blood (CRIS) - Final D/C Instructions Discharge Diet: No restrictions Discharge Activity: Return to Normal Activity, May Shower and Use Walker Weight Bearing Status: Weight bearing as tolerated Call your doctor if you observe: Fever of 101 or Higher, Inability to urinate, Inability to have a bowel movement, Shortness of breath, Dizziness, Fainting spells, Swelling in the ankles, Chest pain and Uncontrolled pain Additional Instructions: [facility] 09/25, [facility] PT/OT, FWW Please Follow Up With: Edilson Person MD When: As scheduled. Meaningful Use Info Meaningful Use Diagnoses (Choose all that apply): None applicable Discharge Plan Admission Admit Date/Time: 08/28/23 15:45 Primary Reason for Your Visit: Debility. Attending Provider: Giovanni Martinez Chi Primary Care Provider: Cary Moon Instructions Additional Instructions / Restrictions: [facility] 09/25, [facility] PT/OT, FWW Discharge Orders/Prescriptions Prescriptions: New naproxen 250 mg Tablet 250 mg PO 4X/DAY PRN PRN (Reason: Pain Score 1-10) Qty: 0 0RF acetaminophen 500 mg Tablet 1,000 mg PO Q6H PRN PRN (Reason: Pain Score 1-10) Qty: 0 0RF potassium chloride 20 mEq Tablet,Er Particles/Crystals 20 meq PO BIDCM 30 Days Qty: 60 0RF Continued aspirin [Adult Aspirin Regimen] 81 mg tablet,delayed release (DR/EC) 81 mg PO DAILY nitroglycerin 0.4 mg tablet, sublingual 0.4 mg SUBLINGUAL Q5-15M PRN (Reason: chest pain) Rx Instructions: do not exceed 3 doses per episode vitamin E (dl, acetate) 400 unit capsule 400 unit PO DAILY ascorbate calcium (vitamin C) 500 mg tablet 500 mg PO BID pantoprazole 40 mg tablet,delayed release (DR/EC) 40 mg PO Q12H cholecalciferol (vitamin D3) 1,000 UNIT tablet 1,000 unit PO BID Patient Comments: Vit-D replacement clopidogrel 75 MG tablet 75 mg PO DAILY Qty: 30 0RF rosuvastatin [Crestor] 5 mg tablet 5 mg PO DAILY duloxetine 20 mg capsule,delayed release(DR/EC) 20 mg PO DAILY fluticasone propionate [24 Hour Allergy Relief] 50 mcg/actuation spray,suspension 1 spray intranasal DAILY PRN (Reason: allergy symptoms) Rx Instructions: administer into each nostril methocarbamol 500 mg tablet 500 mg PO TID PRN (Reason: Muscle Spasms ) polyethylene glycol 3350 17 gram powder in packet 17 g PO DAILY senna-docusate sodium Tablet 1 tab PO DAILY Discontinued polypodium leucotomos extract 240 mg capsule 240 mg capsule PO .M/W/F prenat.vits,luis,ugv-ojar-gnxgp Tablet 1 tab PO DAILY chlorpheniramine maleate [ChlorTabs] 4 mg tablet 4 mg PO Q8H PRN (Reason: Allergies) Rx Instructions: do not exceed 2 doses per 24 hrs 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) 30 mg PO ONCE venlafaxine 75 MG tablet 75 mg PO DAILY Patient Comments: treat depression vit C,V-Do-dwcvv-lutein-zeaxan 1 EACH capsule 1 ea PO DAILY Patient Comments: for eye health meclizine 25 MG tablet 50 mg PO DAILY PRN PRN (Reason: Dizziness) Patient Comments: Antihystamine acetaminophen 325 MG tablet 650 mg PO Q4H PRN PRN (Reason: Mild-Mod Pain (-12/17)) Qty: 0 0RF Patient Comments: PAIN atorvastatin 40 MG tablet 40 mg PO DAILY Qty: 30 0RF venlafaxine 150 mg capsule,extended release 24hr PO oxycodone-acetaminophen [oxycodone-acetaminophen] 1 TABLET tablet 1 tab PO Q6H PRN PRN (Reason: pain) 5 Days Qty: 20 0RF ascorbic acid (vitamin C) 500 mg tablet 500 mg PO BID biotin 1 cap PO DAILY scopolamine base 1 mg over 3 days patch 3 day 1 patch transdermal Q3D PRN (Reason: As needed for Travel) sucralfate [Carafate] 1 gram tablet 1 g PO Q6H Referrals / Follow Up: Cary Moon MD [Primary Care Provider] - Edilson Person MD [Non-Staff] - 10/09/23 3:00 pm Disposition Disposition (needs filled in before D/C Order can be placed): Home Health Service
[2023-09-18 14:16] VITALS: BP 138/55; PULSE 86; RESP 17; TEMP 37.2; O2SAT 96
[2023-09-18] MEDS: Atorvastatin Calcium 10 MG Tablet PO (22:12)
[2023-09-18] MEDS: DiphenhydrAMINE 25 MG Capsule 50 MG PO (22:12)
[2023-09-18] MEDS: Magnesium Chloride 64 MG Delay Rel.Tablet 128 MG PO (22:12)
[2023-09-18] MEDS: Senna/Docusate Sodium 1 Tablet 2 TABLET PO (22:13)
[2023-09-19 08:47] LABS: Absolute Lymphocyte Count 0.97 X10^3/uL (0.83-4.51); Absolute Neutrophil Count 4.6 X10^3/uL (2.0-7.7); Basophil# 0.11 X10^3/uL; Basophil% 1.7 % (0-1); Eosinophil# 0.24 X10^3/uL; Eosinophils% 3.7 % (0-5); Hematocrit 38.7 % (37-47); Hemoglobin 11.7 g/dL (12.0-15.0); Lymphocyte # 0.97 X10^3/ul (0.83-4.51); Lymphocyte % 14.9 % (19-41); Mean Corp Hgb Conc 30.2 g/dL (32-36); Mean Corpuscular Hgb 31.2 pg (27.0-32.0); Mean Corpuscular Volume 103.2 fL (81-99); Mean Platelet Vol. 8.8 fl (6.2-12.0); Monocyte# 0.51 X10^3/uL; Monocyte% 7.8 % (0-10); NRBC Flagged by Analyzer 0 % (0-5); Neutrophil # 4.62 X10^3/uL (2.7-7.7); Neutrophil % 71.1 % (47-70); Platelet Count 311 K/mm3 (150-450); RBC Distribution Width CV 16.1 % (11.6-14.6); RBC Distribution Width SD 62.7 fl (35.1-43.9); Red Blood Count 3.75 M/mm3 (4.2-5.4); White Blood Count 6.5 K/mm3 (4.4-11.0)
[2023-09-19 09:04] LABS: Anion Gap 4 (5-15); BUN 22 mg/dL (7-18); BUN/Creat Ratio 36.1 RATIO (10-20); Chloride 111 mmol/L (98-107); Creatinine, Serum 0.61 mg/dL (0.55-1.02); EST Glomerular Filtration Rate 100 mL/min (>60); Est Glom Filt Rate - Afr Amer 121 mL/min (>60); Estimated Creatinine Clearance 43.62 ml/min; Glucose 133 mg/dL (74-106); Potassium 3.7 mmol/L (3.5-5.1); Sodium Level 141 mmol/L (136-145)
[2023-09-19 09:25] VITALS: BP 138/66; PULSE 83; RESP 16; TEMP 36.9; O2SAT 98
[2023-09-19] MEDS: DULoxetine Hcl 20 MG Capsule PO (09:28)
[2023-09-19] MEDS: Vitamin E 400 UNITS Capsule PO ×2 (09:28→17:14)
[2023-09-19] MEDS: Pantoprazole Sodium 40 MG Tablet PO ×2 (09:29→21:37)
[2023-09-19] MEDS: Potassium Chloride Oral Tablet 20 MEQ PO ×2 (09:29→17:14)
[2023-09-19] MEDS: Clopidogrel Bisulfate 75 MG Tablet PO (09:29)
[2023-09-19] MEDS: Aspirin E.C. 81 MG Tablet PO (09:29)
[2023-09-19] MEDS: Ascorbic Acid 500 MG Tablet PO ×2 (09:29→21:37)
[2023-09-19] MEDS: Cholecalciferol (VIT D3) 25 MCG TABLET (1,000 UNITS) PO ×2 (09:29→21:37)
[2023-09-19] MEDS: Naproxen 250 MG Tablet PO (09:31)
[2023-09-19 15:27] VITALS: BP 144/70; PULSE 95; RESP 16; TEMP 37.1; O2SAT 96
[2023-09-19] MEDS: Atorvastatin Calcium 10 MG Tablet PO (21:37)
[2023-09-19] MEDS: DiphenhydrAMINE 25 MG Capsule 50 MG PO (21:37)
[2023-09-19] MEDS: Magnesium Chloride 64 MG Delay Rel.Tablet 128 MG PO (21:37)
[2023-09-19] MEDS: Acetaminophen 500 MG Tablet 1000 MG PO (21:38)
[2023-09-19] MEDS: Senna/Docusate Sodium 1 Tablet 2 TABLET PO (21:39)
[2023-09-20] MEDS: Naproxen 250 MG Tablet PO (07:24)
[2023-09-20 08:23] VITALS: BP 123/67; PULSE 84; RESP 16; TEMP 37.2; O2SAT 96
[2023-09-20] MEDS: Aspirin E.C. 81 MG Tablet PO (08:25)
[2023-09-20] MEDS: DULoxetine Hcl 20 MG Capsule PO (08:25)
[2023-09-20] MEDS: Potassium Chloride Oral Tablet 20 MEQ PO ×2 (08:25→17:49)
[2023-09-20] MEDS: Vitamin E 400 UNITS Capsule PO ×2 (08:25→17:49)
[2023-09-20] MEDS: Clopidogrel Bisulfate 75 MG Tablet PO (08:25)
[2023-09-20] MEDS: Cholecalciferol (VIT D3) 25 MCG TABLET (1,000 UNITS) PO ×2 (08:26→21:18)
[2023-09-20] MEDS: Pantoprazole Sodium 40 MG Tablet PO ×2 (08:26→21:18)
[2023-09-20] MEDS: Ascorbic Acid 500 MG Tablet PO ×2 (08:26→21:18)
[2023-09-20] MEDS: Atorvastatin Calcium 10 MG Tablet PO (21:17)
[2023-09-20] MEDS: DiphenhydrAMINE 25 MG Capsule 50 MG PO (21:17)
[2023-09-20] MEDS: Senna/Docusate Sodium 1 Tablet 2 TABLET PO (21:18)
[2023-09-20] MEDS: Magnesium Chloride 64 MG Delay Rel.Tablet 128 MG PO (21:18)
[2023-09-20] MEDS: Acetaminophen 500 MG Tablet 1000 MG PO (21:19)
[2023-09-21] MEDS: Cholecalciferol (VIT D3) 25 MCG TABLET (1,000 UNITS) PO ×2 (08:21→21:36)
[2023-09-21] MEDS: Potassium Chloride Oral Tablet 20 MEQ PO ×2 (08:21→17:35)
[2023-09-21] MEDS: Ascorbic Acid 500 MG Tablet PO ×2 (08:21→21:36)
[2023-09-21] MEDS: Pantoprazole Sodium 40 MG Tablet PO ×2 (08:21→21:36)
[2023-09-21] MEDS: Aspirin E.C. 81 MG Tablet PO (08:21)
[2023-09-21] MEDS: Acetaminophen 500 MG Tablet 1000 MG PO ×2 (08:21→21:34)
[2023-09-21] MEDS: Vitamin E 400 UNITS Capsule PO ×2 (08:21→17:35)
[2023-09-21] MEDS: Clopidogrel Bisulfate 75 MG Tablet PO (08:22)
[2023-09-21] MEDS: DULoxetine Hcl 20 MG Capsule PO (08:22)
[2023-09-21 09:00] VITALS: BP 136/69; PULSE 87; RESP 16; TEMP 36.1; O2SAT 96
[2023-09-21] MEDS: Naproxen 250 MG Tablet PO (14:24)
[2023-09-21] MEDS: Senna/Docusate Sodium 1 Tablet 2 TABLET PO (21:34)
[2023-09-21] MEDS: DiphenhydrAMINE 25 MG Capsule 50 MG PO (21:35)
[2023-09-21] MEDS: Atorvastatin Calcium 10 MG Tablet PO (21:35)
[2023-09-21] MEDS: Magnesium Chloride 64 MG Delay Rel.Tablet 128 MG PO (21:36)
[2023-09-22] MEDS: Naproxen 250 MG Tablet PO ×2 (01:30→19:45)
[2023-09-22] MEDS: Aspirin E.C. 81 MG Tablet PO (07:40)
[2023-09-22] MEDS: Potassium Chloride Oral Tablet 20 MEQ PO ×2 (07:40→17:43)
[2023-09-22] MEDS: Vitamin E 400 UNITS Capsule PO ×2 (07:40→17:43)
[2023-09-22] MEDS: DULoxetine Hcl 20 MG Capsule PO (07:40)
[2023-09-22] MEDS: Clopidogrel Bisulfate 75 MG Tablet PO (07:41)
[2023-09-22] MEDS: Ascorbic Acid 500 MG Tablet PO ×2 (07:41→22:44)
[2023-09-22] MEDS: Cholecalciferol (VIT D3) 25 MCG TABLET (1,000 UNITS) PO ×2 (07:41→22:44)
[2023-09-22] MEDS: Pantoprazole Sodium 40 MG Tablet PO ×2 (07:41→22:44)
[2023-09-22 09:47] VITALS: BMI 22.5
[2023-09-22 10:00] VITALS: PULSE 84; RESP 16; O2SAT 97
[2023-09-22 11:03] VITALS: BP 146/65; PULSE 90; RESP 16; TEMP 36.9; O2SAT 97
[2023-09-22] MEDS: Acetaminophen 500 MG Tablet 1000 MG PO (22:41)
[2023-09-22] MEDS: Senna/Docusate Sodium 1 Tablet 2 TABLET PO (22:42)
[2023-09-22] MEDS: DiphenhydrAMINE 25 MG Capsule 50 MG PO (22:42)
[2023-09-22] MEDS: Magnesium Chloride 64 MG Delay Rel.Tablet 128 MG PO (22:43)
[2023-09-22] MEDS: Atorvastatin Calcium 10 MG Tablet PO (22:43)
[2023-09-23] MEDS: Potassium Chloride Oral Tablet 20 MEQ PO ×2 (09:30→16:52)
[2023-09-23] MEDS: Cholecalciferol (VIT D3) 25 MCG TABLET (1,000 UNITS) PO ×2 (09:30→22:16)
[2023-09-23] MEDS: Ascorbic Acid 500 MG Tablet PO ×2 (09:30→22:16)
[2023-09-23] MEDS: Aspirin E.C. 81 MG Tablet PO (09:30)
[2023-09-23] MEDS: Pantoprazole Sodium 40 MG Tablet PO ×2 (09:30→22:16)
[2023-09-23] MEDS: Vitamin E 400 UNITS Capsule PO ×2 (09:30→20:00)
[2023-09-23] MEDS: DULoxetine Hcl 20 MG Capsule PO (09:30)
[2023-09-23] MEDS: Clopidogrel Bisulfate 75 MG Tablet PO (09:30)
[2023-09-23] MEDS: Naproxen 250 MG Tablet PO ×2 (09:34→17:38)
[2023-09-23 14:21] VITALS: BP 157/63; PULSE 80; RESP 16; TEMP 36.9; O2SAT 97
[2023-09-23] MEDS: DiphenhydrAMINE 25 MG Capsule 50 MG PO (22:16)
[2023-09-23] MEDS: Atorvastatin Calcium 10 MG Tablet PO (22:16)
[2023-09-23] MEDS: Magnesium Chloride 64 MG Delay Rel.Tablet 128 MG PO (22:16)
[2023-09-23] MEDS: Senna/Docusate Sodium 1 Tablet 2 TABLET PO (22:20)
[2023-09-24] MEDS: Acetaminophen 500 MG Tablet 1000 MG PO ×2 (06:16→21:37)
[2023-09-24] MEDS: Aspirin E.C. 81 MG Tablet PO (08:27)
[2023-09-24] MEDS: Potassium Chloride Oral Tablet 20 MEQ PO ×2 (08:27→17:47)
[2023-09-24] MEDS: Vitamin E 400 UNITS Capsule PO ×2 (08:27→17:47)
[2023-09-24] MEDS: Pantoprazole Sodium 40 MG Tablet PO ×2 (08:28→21:37)
[2023-09-24] MEDS: Clopidogrel Bisulfate 75 MG Tablet PO (08:28)
[2023-09-24] MEDS: Ascorbic Acid 500 MG Tablet PO ×2 (08:28→21:35)
[2023-09-24] MEDS: DULoxetine Hcl 20 MG Capsule PO (08:28)
[2023-09-24] MEDS: Cholecalciferol (VIT D3) 25 MCG TABLET (1,000 UNITS) PO ×2 (08:29→21:37)
[2023-09-24 14:18] VITALS: BP 141/69; PULSE 93; RESP 18; TEMP 36.7; O2SAT 95
[2023-09-24 14:45] VITALS: BP 144/67; PULSE 84; RESP 17; TEMP 36.8; O2SAT 98
--- NOTE | 2023-09-24 15:02 | MDS.RN ---
Pain interview for mds completed.
[2023-09-24] MEDS: Naproxen 250 MG Tablet PO (17:52)
[2023-09-24] MEDS: DiphenhydrAMINE 25 MG Capsule 50 MG PO (21:32)
[2023-09-24] MEDS: Atorvastatin Calcium 10 MG Tablet PO (21:34)
[2023-09-24] MEDS: Magnesium Chloride 64 MG Delay Rel.Tablet 128 MG PO (21:35)
[2023-09-24] MEDS: Senna/Docusate Sodium 1 Tablet 2 TABLET PO (21:35)
[2023-09-25] MEDS: Acetaminophen 500 MG Tablet 1000 MG PO (07:36)
[2023-09-25] MEDS: Vitamin E 400 UNITS Capsule PO (07:37)
[2023-09-25] MEDS: Potassium Chloride Oral Tablet 20 MEQ PO (07:37)
[2023-09-25] MEDS: DULoxetine Hcl 20 MG Capsule PO (07:37)
[2023-09-25] MEDS: Clopidogrel Bisulfate 75 MG Tablet PO (07:37)
[2023-09-25] MEDS: Aspirin E.C. 81 MG Tablet PO (07:37)
[2023-09-25] MEDS: Pantoprazole Sodium 40 MG Tablet PO (07:37)
[2023-09-25] MEDS: Ascorbic Acid 500 MG Tablet PO (07:38)
[2023-09-25] MEDS: Cholecalciferol (VIT D3) 25 MCG TABLET (1,000 UNITS) PO (07:38)
--- NOTE | 2023-09-25 14:56 | CASEMGMT ---
Social Work BIMS () and PHQ-2 () completed for MDS assessment. Raiza Aviles MSW LUMBER STRAIGHTENER
== END 2023-09-25 10:45 | disposition home health service (06) | DRG 561 ==
PROVIDERS: Admitting Provider Family Medicine Geriatric Medicine; PCP Internal Medicine; Referring Provider Family Medicine Geriatric Medicine; Visit Provider Family Medicine Geriatric Medicine
DX: M80.051D Age-related osteoporosis with current pathological fracture, right femur, subsequent encounter for fracture with routine healing (principal); D64.9 Anemia, unspecified; F32.A Depression, unspecified; E53.8 Deficiency of other specified B group vitamins; E55.9 Vitamin D deficiency, unspecified; E78.5 Hyperlipidemia, unspecified; I25.10 Atherosclerotic heart disease of native coronary artery without angina pectoris; K21.9 Gastro-esophageal reflux disease without esophagitis; J30.9 Allergic rhinitis, unspecified; W01.0XXD Fall on same level from slipping, tripping and stumbling without subsequent striking against object, subsequent encounter; Z79.82 Long term (current) use of aspirin; Z87.891 Personal history of nicotine dependence; Z79.899 Other long term (current) drug therapy; Z79.02 Long term (current) use of antithrombotics/antiplatelets; Z86.73 Personal history of transient ischemic attack (TIA), and cerebral infarction without residual deficits
CPT/HCPCS: 36415; 80048; 80061; 82274; 82652; 83735; 85014; 85018; 85025; 86850; 86900; 86901; 86920; 86922; 87811; 97110; 97116; 97162; 97165; 97530; 97535; 97802; P9016

== ENCOUNTER 2023-08-29 14:56 | Outpatient (CLI) | payer MEDICARE, OTHER, SELFPAY ==
--- OUTSIDE RECORDS SUMMARY | 2023-08-29 15:11 | XMS RPT_ITS | CCD ---
Author Name Unknown Address [address] [place] [address] Organization [facility] Care Team Providers Care Epic Specialist Name Role Phone Subha Whiteside Unavailable UnavailSubha Thomson Unavailable Unavailabl e Melissa Jonny Tatiana Unavailable Unavailable Jonny Torres MD Primary Care Provider Jonny Torres MD Primary Care Provider Jonny Torres MD Primary Care Provider MELISSA JONNY D Referring Unavailable TALAMPAS, JONNY D Primary Care Unavailable TALAMPAS, JONNY D Referring Unavailable TALAMPAS, JONNY D Primary Care Unavailable TALAMPAS, JONNY D Attending Unavailable TALAMPAS, JONNY D Primary Care Unavailable TALAMPAS, JONNY D Referring Unavailable TALAMPAS, JONNY D Primary Care Unavailable TALAMPAS, JONNY D Primary Care Unavailable TALAMPAS, JONNY D Primary Care Unavailable TALAMPAS, JONNY D Attending Unavailable No, Physician Primary Care Provider Unavailabl LENO Amaro Attending Unavai labapple NO, PHYSICIAN Primary Care Unavailable LENO BECK Admitting Unavaagusto acostale LENO BECK Consulting Unavai lable CRISSY LUU Consulting Unavailab LENO Back Referring Unavai lable NO, PHYSICIAN Primary Care Unavailable LENO BECK Admitting Unavai lable STILLWAKODYNWESTLEY Admitting Unavailable STILLWAGON, WESTLEY Attending Unavailable NO, PHYSICIAN Primary Care Unavailable Allergies Allergy Classification Reported Allergen(s) Allergy Type Date of Onset Reaction(s) Facility (20 sources) codeine; Translations: [codeine] Drug Allergy 3 GI Upset, GI Intolerance [facility] Repository (20 sources) fentaNYL; Translations: [fentaNYL] Drug Allergy 7 Itching [facility] Repository (20 sources) Penicillins; Translations: [penicillins] Propensity to adverse reactions to drug (disorder) 3 Unknown [facility] Repository Medications Current Medications Medication Drug Class(es) Dates Sig (Normalized) Sig (Original) acetaminophen 325 mg oral tablet (20 sources) Start: 08-28-2023 End: 09-07-2023 take 2 tablets by mouth every four hours as needed acetaminophen (TYLENOL) 325 MG tablet Take 2 (two) tablets (650 mg total) by mouth every 4 (four) hours as needed . 30 tablet 0 08/28/2023 09/07/2023 Active Completed/Discontinued Medications Medication Drug Class(es) Dates Sig (Normalized) Sig (Original) acetaminophen 325 mg / HYDROcodone bitartrate 5 mg oral tablet (1 source) Opioid Agonist Start: 08-22-2023 End: 08-28-2023 take 1 tablet by mouth every six hours as needed HYDROcodone-aceta minophen (NORCO) 5-325 mg per tablet 1 tablet ascorbic acid 500 mg oral tablet (20 sources) Vitamin C Start: 12-17-2007 End: 08-28-2023 take 500 mg by mouth twice daily 500 mg, Oral, 2 times daily, First dose on Thu08/21/23 at 2100 Problems Active Problems Problem Classification Problem Date Documented Da te Episodic/Chronic Abdominal pain (5 sources) Right upper quadrant pain; Translations: [Right upper quadrant pain] Episodic Acute posthemorrhagic anemia (2 sources) Acute posthemorrhagic anemia; Translations: [Acute posthemorrhagic anemia] Onset: 4 08-23-2023 Episodic Deficiency and other anemia (2 sources) Iron deficiency anemia; Translations: [Iron deficiency anemia, unspecified] Episodic Disorders of lipid metabolism (20 sources) Hyperlipidemia; Translations: [Hyperlipidemia, unspecified] Onset: 5 10-16-2015 Chronic E Codes: Fall (3 sources) Fall; Translations: [Unspecified fall, initial encounter] Onset: 4 Episodic Esophageal disorders (20 sources) Gastroesophageal reflux disease without esophagitis; Translations: [Gastro-esophageal reflux disease without esophagitis] Onset: 6 08-05-2021 Chronic Fracture of lower limb (5 sources) Closed fracture of shaft of femur; Translations: [Displaced oblique fracture of shaft of right femur, initial encounter for closed fracture] Onset: 4 08-21-2023 Episodic Malaise and fatigue (2 sources) Fatigue; [...] (5 sources) Patient encounter status; Translations: [Other fdc (current) drug therapy] Episodic Other aftercare (1 source) Other fdc (current) drug therapy; Translations: [Encounter for long-term [...] Asymptomatic menopausal state; Translations: [Postmenopausal status] Onset: Episodic Spondylosis; intervertebral disc disorders; other back [...] Vital Sign Value Performing Clinician Faci lity 08-28-2023 10:56-0500 Respiratory rate 14 /min Leno Beck MD Work Phone: [facility] 08-28-2023 08:07-0500 Body temperature 98.29 [degF] Leno Beck MD Work Phone: [facility] 08-28-2023 08:07-0500 Diastolic blood pressure 67 mm[Hg] Leno Beck MD Work Phone: [facility] 08-28-2023 08:07-0500 Heart rate 93 /min Leno Beck MD Work Phone: [facility] 08-28-2023 08:07-0500 SaO2% (BldA) [Mass fraction] 94 % Leno Beck MD Work Phone: [facility] 08-28-2023 08:07-0500 Systolic blood pressure 122 mm[Hg] Leno Beck MD Work Phone: [facility] 08-21-2023 18:00-0500 Body height 152.4 cm Leno Beck MD Work Phone: [facility] 08-21-2023 18:00-0500 Body mass index (BMI) [Ratio] 25 kg/m2 Leno Beck MD Work Phone: [facility] 08-21-2023 18:00-0500 Body weight 58.06 kg Leno Beck MD Work Phone: [facility] 07-20-2023 10:50-0500 Body height 157.5 cm Jonny Torres MD Work Phone: [facility] 07-20-2023 10:50-0500 Body temperature 99.19 [degF] Jonny Torres MD Work Phone: [facility] 07-20-2023 10:50-0500 Body weight 57.15 kg Jonny Torres MD Work Phone: [facility] 07-20-2023 10:50-0500 Diastolic blood pressure 68 mm[Hg] Jonny Torres MD Work Phone: [facility] 07-20-2023 10:50-0500 Heart rate 75 /min Jonny Torres MD Work Phone: [facility] 07-20-2023 10:50-0500 Respiratory rate 12 /min Jonny Torres MD Work Phone: [facility] 07-20-2023 10:50-0500 SaO2% (BldA) [Mass fraction] 98 % Jonny Torres MD Work Phone: [facility] 07-20-2023 10:50-0500 Systolic blood pressure 122 mm[Hg] Jonny Torres MD Work Phone: [facility] 01-12-2023 15:26-0400 Body temperature 98.71 [degF] Jonny Torres MD Work Phone: [facility] 01-12-2023 15:26-0400 Body weight 55.34 kg Jonny Torres MD Work Phone: [facility] 01-12-2023 15:26-0400 Diastolic blood pressure 72 mm[Hg] Jonny Torres MD Work Phone: [facility] 01-12-2023 15:26-0400 Heart rate 72 /min Jonny Torres MD Work Phone: [facility] 01-12-2023 15:26-0400 Respiratory rate 18 /min Jonny Torres MD Work Phone: [facility] 01-12-2023 15:26-0400 SaO2% (BldA) [Mass fraction] 99 % Jonny Torres MD Work Phone: [facility] 01-12-2023 15:26-0400 Systolic blood pressure 142 mm[Hg] Jonny Torres MD Work Phone: [facility] 07-07-2022 14:55-0500 Body temperature 98.01 [degF] Treatment Wstr Work Phone: [facility] 07-07-2022 14:55-0500 Diastolic blood pressure 72 mm[Hg] Treatment Wstr Work Phone: [facility] 07-07-2022 14:55-0500 Heart rate 87 /min Treatment Wstr Work Phone: [facility] 07-07-2022 14:55-0500 Systolic blood pressure 138 mm[Hg] Treatment Wstr Work Phone: [facility] 06-17-2022 11:49-0500 Diastolic blood pressure 67 mm[Hg] Orestes Jackson MD Work Phone: [facility] 06-17-2022 11:49-0500 Heart rate 72 /min Orestes Jackson MD Work Phone: [facility] 06-17-2022 11:49-0500 Respiratory rate 16 /min Orestes Jackson MD Work Phone: [facility] 06-17-2022 11:49-0500 SaO2% (BldA) [Mass fraction] 97 % Orestes Jackson MD Work Phone: [facility] 06-17-2022 11:49-0500 Systolic blood pressure 155 mm[Hg] Orestes Jackson MD Work Phone: [facility] 06-17-2022 09:17-0500 Body temperature 97.59 [degF] Orestes Jackson MD Work Phone: [facility] 06-17-2022 09:17-0500 Body weight 56.7 kg Orestes Jackson MD Work Phone: [facility] 05-23-2022 14:54-0400 Body weight 56.7 kg Jonny Torres MD Work Phone: [facility] 05-23-2022 14:54-0400 Diastolic blood pressure 78 mm[Hg] Jonny Torres MD Work Phone: [facility] 05-23-2022 14:54-0400 Heart rate 81 /min Jonny Torres MD Work Phone: [facility] 05-23-2022 14:54-0400 SaO2% (BldA) [Mass fraction] 97 % Jonny Torres MD Work Phone: [facility] 05-23-2022 14:54-0400 Systolic blood pressure 142 mm[Hg] Jonny Torres MD Work Phone: [facility] 04-08-2022 14:47-0400 Body height 157.5 cm Desiree Huang PA-C Work Phone: [facility] 04-08-2022 14:47-0400 Body temperature 98.01 [degF] eDsiree Huang PA-C Work Phone: [facility] 04-08-2022 14:47-0400 Body weight 56.25 kg Desiree Roachdale PA-C Work Phone: [facility] 04-08-2022 14:47-0400 Diastolic blood pressure 62 mm[Hg] Desiree Sal PA-C Work Phone: [facility] 04-08-2022 14:47-0400 Heart rate 87 /min Desiree Roachdale PA-C Work Phone: [facility] 04-08-2022 14:47-0400 SaO2% (BldA) [Mass fraction] 97 % Desiree Sal PA-C Work Phone: [facility] 04-08-2022 14:47-0400 Systolic blood pressure 132 mm[Hg] Desiree Sal PA-C Work Phone: [facility] 01-14-2022 13:38-0400 Body weight 58.06 kg Sandi Lara SONG WRITER.ELECTRICIAN HELPER POWERHOUSE Work Phone: [facility] 01-14-2022 13:38-0400 Diastolic blood pressure 82 mm[Hg] Sandi Lara SONG WRITER.ELECTRICIAN HELPER POWERHOUSE Work Phone: [facility] 01-14-2022 13:38-0400 Heart rate 84 /min Sandi Lara SONG WRITER.ELECTRICIAN HELPER POWERHOUSE Work Phone: [facility] 01-14-2022 13:38-0400 Respiratory rate 16 /min Sandi Lara SONG WRITER.ELECTRICIAN HELPER POWERHOUSE Work Phone: [facility] 01-14-2022 13:38-0400 Systolic blood pressure 136 mm[Hg] Sandi Lara SONG WRITER.ELECTRICIAN HELPER POWERHOUSE Work Phone: [facility] 12-03-2021 14:01-0400 Body temperature 97.81 [degF] Annie Abebe SONG WRITER.ADVERTISING COLUMNIST Work Phone: [facility] 12-03-2021 14:01-0400 Body weight 59.24 kg Annie Abebe SONG WRITER.ADVERTISING COLUMNIST Work Phone: [facility] 12-03-2021 14:01-0400 Diastolic blood pressure 78 mm[Hg] Annie Abebe SONG WRITER.ADVERTISING COLUMNIST Work Phone: [facility] 12-03-2021 14:01-0400 Heart rate 88 /min Annie Abebe SONG WRITER.ADVERTISING COLUMNIST Work Phone: [facility] 12-03-2021 14:01-0400 Respiratory rate 16 /min Annie Abebe SONG WRITER.ADVERTISING COLUMNIST Work Phone: [facility] 12-03-2021 14:01-0400 SaO2% (BldA) [Mass fraction] 99 % Annie Abebe SONG WRITER.ADVERTISING COLUMNIST Work Phone: [facility] 12-03-2021 14:01-0400 Systolic blood pressure 126 mm[Hg] Annie Abebe SONG WRITER.ADVERTISING COLUMNIST Work Phone: [facility] 11-18-2021 16:51-0400 Body weight 61.69 kg Jonny Torres MD Work Phone: [facility] 11-18-2021 16:51-0400 Diastolic blood pressure 82 mm[Hg] Jonny Torres MD Work Phone: [facility] 11-18-2021 16:51-0400 Heart rate 84 /min Jonny Torres MD Work Phone: [facility] 11-18-2021 16:51-0400 Systolic blood pressure 128 mm[Hg] Jonny Torres MD Work Phone: [facility] Encounters Encounter Date Encounter Type Care Provider Facility Start: 08-25-2023 Evaluation and management of inpatient [facility] Start: 08-21-2023 End: 08-28-2023 Evaluation and management of inpatient [facility] Start: 08-21-2023 End: 08-25-2023 Emergency department patient visit [facility] Start: 08-21-2023 End: 08-28-2023 Evaluation and management of inpatient Joyce Espinosa MD Work Phone: [facility] Start: 08-17-2023 End: 08-17-2023 ambulatory JONNY D TALAMPAS Facility:[facility] Start: 08-14-2023 End: 08-14-2023 ambulatory JONNY D TALAMPAS Facility:[facility] Start: 07-20-2023 End: 07-20-2023 ambulatory JONNY D TALAMPAS Facility:[facility] Start: 07-20-2023 End: 07-20-2023 Office outpatient visit 25 minutes Jonny Torres MD Work Phone: [facility] [place] Procedures Date Procedure Procedure Detail Performing Clinician Start: 08-26-2023 Basic metabolic panel calcium total Gelacio heath Luu MD Work Phone: Start: 08-25-2023 Basic metabolic panel calcium total Gelacio heath Luu MD Work Phone: Start: 08-24-2023 Basic metabolic panel calcium total Gelacio heath Luu MD Work Phone: Start: 08-24-2023 Culture bacterial quanttative colony count urine Rosetta Carver ADVERTISING COLUMNIST Work Phone: Start: 08-23-2023 RBC leukocytes reduced Emilia Tatum ADVERTISING COLUMNIST Work Phone: Start: 08-23-2023 Blood count hematocrit Crissy Luu MD Work Phone: Start: 08-23-2023 End: 08-23-2023 Transfusion of red blood cells Emilia Tatum ADVERTISING COLUMNIST Work Phone: Start: 08-23-2023 Basic metabolic panel calcium total Gelacio heath Luu MD Work Phone: Start: 08-22-2023 Urnls dip stick/tablet reagent auto microscopy Emilia Tatum ADVERTISING COLUMNIST Work Phone: Start: 08-22-2023 PROCEDURAL SEDATION Joyce Espinosa MD Work Phone: Start: 08-22-2023 Radiologic examination femur minimum 2 views Crissy Luu MD Work Phone: Start: 08-22-2023 End: 08-22-2023 OPEN REDUCTION INTERNAL FIXATION FEMUR Crissy Christophe Luu MD Work Phone: Start: 08-22-2023 Basic metabolic panel calcium total Fareed apple R. Garduno ADVERTISING COLUMNIST Work Phone: Start: 08-21-2023 Radiologic examination femur minimum 2 views Joyce Espinosa MD Work Phone: Start: 08-21-2023 ORTHOPEDIC INJURY TREATMENT Joyce Espinosa MD Work Phone: Start: 08-21-2023 Blood group typing Joyce Espinosa MD Work Phone: Start: 08-21-2023 Ct cervical spine w/o contrast material Anusha R. Garduno ADVERTISING COLUMNIST Work Phone: Start: 08-21-2023 Ct head/brain w/o contrast material Fareed apple R. Garduno ADVERTISING COLUMNIST Work Phone: Start: 08-21-2023 End: 08-21-2023 Radiologic examination femur minimum 2 views Anusha R. Garduno ADVERTISING COLUMNIST Work Phone: Start: 08-21-2023 Radiologic exam chest single view Joyce Espinosa MD Work Phone: Start: 08-21-2023 Gases blood ph direct valorie xcpt pulse oximitry Joyce Espinosa MD Work Phone: Start: 08-21-2023 Blood typing serologic abo Joyce Espinosa MD Work Phone: Start: 06-17-2022 Level iv surg pathology gross&microscopic exam Orestes Jackson MD Work Phone: Start: 06-17-2022 Esophagogastroduodenoscopy transoral diagnostic Desiree Huang PA-C Work Phone: Start: 06-17-2022 Colonoscopy flx dx w/collj spec when pfrmd Desiree Huang PA-C Work Phone: Start: 06-17-2022 Colonoscopy Jonny Torres MD Work Phone: Start: 05-23-2022 INFLUENZA SEASONAL QUADRIVALENT HIGH DOSE AGE 65+ Jonny Torres MD Work Phone: Start: 01-16-2022 Us abdominal real time w/image limited Sandi Lara APRN.CNS Work Phone: Plan of Treatment Date Care Activity Detail Author Start: 06-17-2032 Colonoscopy COLONOSCOPY [facility] Start: 06-17-2032 COLORECTAL CANCER SCREENING COLORECTAL CANCER SCREENING [facility] Start: 06-17-2032 Screening for malignant neoplasm of colon [facility] Start: 06-12-2026 Diabetes Screening Diabetes Screening [facility] Start: 07-07-2025 DIABETES SCREEN DIABETES SCREEN [facility] Start: 07-07-2025 Diabetes Screening Diabetes Screening [facility] Start: 03-14-2025 DIABETES SCREEN DIABETES SCREEN [facility] Start: 07-20-2024 End: 10-19-2024 25-hydroxyvitamin D3 [Mass/volume] in Serum or Plasma VITAMIN D 25 HYDROXY Lab Routine Vitamin D deficiency Age-related osteoporosis without current pathological fracture Encounter for long-term current use of medication Expected: 07/20/2024 (Approximate), Expires: 10/19/2024 [facility] Work Phone: Immunizations Immunization Date Immunization Notes Care Provider Jesus Manuel bobby 12-09-2022 zoster vaccine recombinant Jonny Torres MD Work Phone: [facility] 05-23-2022 influenza, high-dose , quadrivalent vaccine (FLUZONE HIGH DOSE QUADRIVALENT) Jonny Torres MD Work Phone: [facility] 05-23-2022 influenza virus vacc ine, unspecified formulation Jonny Torres MD Work Phone: [facility] 05-03-2021 influenza (HD-IIV4) vaccine, age 65+ yr, high dose, quadrivalent, PF (FLUZONE HIGH-DOSE) Jonny Torres MD Work Phone: [facility] 05-03-2021 influenza, high dose seasonal, preservative-free Jonny Torres MD Work Phone: [facility] Work Phone: 05-01-2020 influenza, high dose seasonal, preservative-free Jonny Torres MD Work Phone: [facility] 04-12-2020 influenza (HD-IIV4) vaccine, age 65+ yr, high dose, quadrivalent, PF (FLUZONE HIGH-DOSE) Jonny Torres MD Work Phone: [facility] 04-18-2019 influenza, high dose seasonal, preservative-free Jonny Torres MD Work Phone: [facility] 06-11-2018 influenza virus vacc ine, unspecified formulation Jonny Torres MD Work Phone: [facility] 04-18-2017 influenza, seasonal, injectable, preservative free Jonny Torres MD Work Phone: [facility] 04-20-2016 influenza, seasonal, injectable Jonny Torres MD Work Phone: [facility] Work Phone: 06-20-2015 influenza, seasonal, injectable, preservative free Jonny Torres MD Work Phone: [facility] 04-20-2015 influenza, seasonal, injectable Jonny Torres MD Work Phone: [facility] 08-25-2014 pneumococcal conjuga te vaccine, 13 valent Jonny Torres MD Work Phone: [facility] 04-28-2014 influenza, seasonal, injectable Jonny Torres MD Work Phone: [facility] 06-20-2013 tetanus toxoid, redu jhon diphtheria toxoid, and acellular pertussis vaccine, adsorbed Jonny Torres MD Work Phone: [facility] 04-10-2013 influenza virus vacc ine, whole virus Jonny Torres MD Work Phone: [facility] Work Phone: 12-17-2007 pneumococcal polysaccharide vaccine, 23 valent Jonny Torres MD Work Phone: [facility] Work Phone: Payers Date Payer Category Payer Medicare [id number] 2015 Medicare MEDICARE MEDICAR E A AND B [id number] 2015-Present [phone] [address] [address] Medicare [id number] 2015 Medicare [id number] 2015 Private Health Insurance HUMANA HUMANA MEDICARE SUPPLEMENT [id number] 2015-Present [phone] [address] [address] [place] [address] Indemnity [id number] 2015 Private Health Insurance HUMANA HUMANA MEDICARE SUPPLEMENT [id number] 2015-Present [phone] [address] [address] [place] [address] Indemnity [id number] 2007 Medicare 2007 Medicare [id number] 1940 Unknown [id number] 1940 Unknown [id number] 1940 Unknown [id number] Social History Date Type Detail Facility Start: 08-15-2011 End: 08-21-2023 Tobacco smoking status NHIS Never smoked tobacco [facility] Start: 05-08-2021 End: 07-20-2023 Alcohol intake Current non-drinker of alcohol (finding) [facility] Start: 10-18-2019 End: 09-05-2020 History SDOH Alcohol Frequency 2 [facility] Start: 10-18-2019 End: 09-05-2020 History SDOH Alcohol Std Drinks 1 [facility] Start: 02-22-2020 End: 01-14-2022 History SDOH Social Connections Phone 4 [facility] Start: 02-22-2020 End: 01-14-2022 History SDOH Social Connections Get Together 98 [facility] Start: 10-18-2019 End: 01-14-2022 History SDOH Social Connections Mandaeism 3 [facility] Start: 10-18-2019 History SDOH Financial 5 [facility] Start: 10-18-2019 Education 17 [facility] Start: 1940 Sex Assigned At Female C [facility] Start: 11-08-2021 End: 07-07-2022 Exposure to SARS-CoV-2 (event) Not sure [facility] Start: 08-15-2011 End: 08-21-2023 Tobacco use and exposure Smokeless tobacco non-user [facility] Start: 01-12-2023 End: 08-21-2023 History of Social function [facility] Start: 01-12-2023 End: 08-21-2023 Tobacco use panel [facility] National Score (1-10 0), lower number is lower risk 79 [facility] Start: 10-20-2019 Gender identity Identifies as female gender (finding) [facility] Start: 10-20-2019 Sexual orientation Heterosexual (fin ding) [facility] Are you now , , , , never or living with a partner? [facility] (I/We) worried wheth er (my/our) food would run out before (I/we) got money to buy more. DK or Refused [facility] Start: 08-24-2023 Alcohol intake Lifetime non-d tristen (finding) [facility] Has the Compass-EOS, BULX, or FromUs threatened to shut off services in your home in past 12Mo No [facility] (I/We) worried wheth er (my/our) food would run out before (I/we) got money to buy more. Never true [facility] Start: 1940 Sex Assigned At Not on file [facility] Medical Equipment Procedure Code Equipment Code Equipment Origin al Text Equipment Identifier Dates Cable 1.7 X 750m m W/Crimp Sterl - [id number] FDA Start: 08-22-2023 Clinical Notes 06-02-2017 to 08-28-2023 Quick Note - Erma Cardenas LPN - 08/28/2023 2:22 PM ESTQuick Note - Erma Cardenas LPN - 08/28/2023 2:22 PM ESTQuick Note - Erma Cadrenas LPN - 08/28/2023 1:13 PM ESTDischarge Instructions Note Date & Type Note Facility 08-28-2023 Note Formatting of this n ote might be different from the original. This nurse called and gave report to receiving nurse. All questions answered. [facility] 08-28-2023 Miscellaneous Notes This nurse called and gave report to receiving nurse. All questions answered. Reviewed discharge summary with pt. Daughter present. Pt wants to eat lunch the the daughter will be taking her to the facility [place]. All questions answered, denies any further needs at this time Dressing changed as ordered and pt tolerated well Problem: Actual or potential alteration in health Goal: Absence of healthcare acquired conditions Outcome: Partially Met Goal: Knowledge of Interdisciplinary Plan of Care Outcome: Partially Met Goal: Knowledge of Enviroment Outcome: Partially Met Problem: Pain Goal: Manage acute pain Outcome: Partially Met Goal: Manage chronic pain Outcome: Partially Met Goal: Reduced pain sensation Outcome: Partially Met Goal: Achievement of comfort function goal Outcome: Partially Met Problem: Pain Goal: Manage acute pain Outcome: Partially Met Goal: Manage chronic pain Outcome: Partially Met Goal: Reduced pain sensation Outcome: Partially Met Goal: Achievement of comfort function goal Outcome: Partially Met Problem: Actual or potential alteration in health Goal: Absence of healthcare acquired conditions Outcome: Partially Met Goal: Knowledge of Interdisciplinary Plan of Care Outcome: Partially Met Goal: Knowledge of Enviroment Outcome: Partially Met Problem: Pain Goal: Manage acute pain Outcome: Partially Met Goal: Manage chronic pain Outcome: Partially Met Goal: Reduced pain sensation Outcome: Partially Met Goal: Achievement of comfort function goal Outcome: Partially Met Problem: Pain Goal: Manage acute pain Outcome: Partially Met Goal: Manage chronic pain Outcome: Partially Met Goal: Reduced pain sensation Outcome: Partially Met Goal: Achievement of comfort function goal Outcome: Partially Met Problem: Pressure Ulcer - Risk of Goal: Absence of pressure ulcer Outcome: Partially Met Problem: Falls, Risk of Goal: Absence of falls Outcome: Partially Met PHYSICAL THERAPY VISIT VARIANCE NOTE Attempted to see patient at this time, but unable secondary to: Patient Unavailable (pt being seen by RESEARCH FELLOW). Will follow up as appropriate. Problem: Actual or potential alteration in health Goal: Absence of healthcare acquired conditions Outcome: Partially Met Problem: Actual or potential alteration in health Goal: Knowledge of Interdisciplinary Plan of Care Outcome: Partially Met Problem: Pain Goal: Manage acute pain Outcome: Partially Met Problem: Pain Goal: Manage acute pain Outcome: Partially Met Problem: Actual or potential alteration in health Goal: Absence of healthcare acquired conditions Outcome: Partially Met Goal: Knowledge of Interdisciplinary Plan of Care Outcome: Partially Met Goal: Knowledge of Enviroment Outcome: Partially Met Problem: Pain Goal: Manage acute pain Outcome: Partially Met Goal: Manage chronic pain Outcome: Partially Met Goal: Reduced pain sensation Outcome: Partially Met Goal: Achievement of comfort function goal Outcome: Partially Met Problem: Pain Goal: Manage acute pain Outcome: Partially Met Goal: Manage chronic pain Outcome: Partially Met Goal: Reduced pain sensation Outcome: Partially Met Goal: Achievement of comfort function goal Outcome: Partially Met Problem: Pressure Ulcer - Risk of Goal: Absence of pressure ulcer Outcome: Partially Met Problem: Falls, Risk of Goal: Absence of falls Outcome: Partially Met Problem: Actual or potential alteration in health Goal: Absence of healthcare acquired conditions Outcome: Partially Met Goal: Knowledge of Interdisciplinary Plan of Care Outcome: Partially Met Goal: Knowledge of Enviroment Outcome: Partially Met Problem: Pain Goal: Manage acute pain Outcome: Partially Met Goal: Manage chronic pain Outcome: Partially Met Goal: Reduced pain sensation Outcome: Partially Met Goal: Achievement of comfort function goal Outcome: Partially Met Problem: Pain Goal: Manage acute pain Outcome: Partially Met Goal: Manage chronic pain Outcome: Partially Met Goal: Reduced pain sensation Outcome: Partially Met Goal: Achievement of comfort function goal Outcome: Partially Met Problem: Pressure Ulcer - Risk of Goal: Absence of pressure ulcer Outcome: Partially Met Problem: Falls, Risk of Goal: Absence of falls Outcome: Partially Met Problem: Actual or potential alteration in health Goal: Absence of healthcare acquired conditions Outcome: Partially Met Goal: Knowledge of Interdisciplinary Plan of Care Outcome: Partially Met Goal: Knowledge of Enviroment Outcome: Partially Met Problem: Pain Goal: Manage acute pain Outcome: Partially Met Goal: Manage chronic pain Outcome: Partially Met Goal: Reduced pain sensation Outcome: Partially Met Goal: Achievement of comfort function goal Outcome: Partially Met Problem: Pain Goal: Manage acute pain Outcome: Partially Met Goal: Manage chronic pain Outcome: Partially Met Goal: Reduced pain sensation Outcome: Partially Met Goal: Achievement of comfort function goal Outcome: Partially Met Problem: Pressure Ulcer - Risk of Goal: Absence of pressure ulcer Outcome: Partially Met Problem: Falls, Risk of Goal: Absence of falls Outcome: Partially Met Associated Problem(s): Acute blood loss anemia S/p 1 unit prbc Hgb ___ (8.2) Problem: Actual or potential alteration in health Goal: Absence of healthcare acquired conditions Outcome: Partially Met Goal: Knowledge of Interdisciplinary Plan of Care Outcome: Partially Met Goal: Knowledge of Enviroment Outcome: Partially Met Problem: Pain Goal: Manage acute pain Outcome: Partially Met Goal: Manage chronic pain Outcome: Partially Met Goal: Reduced pain sensation Outcome: Partially Met Goal: Achievement of comfort function goal Outcome: Partially Met Problem: Pain Goal: Manage acute pain Outcome: Partially Met Goal: Manage chronic pain Outcome: Partially Met Goal: Reduced pain sensation Outcome: Partially Met Goal: Achievement of comfort function goal Outcome: Partially Met Problem: Pressure Ulcer - Risk of Goal: Absence of pressure ulcer Outcome: Partially Met Problem: Falls, Risk of Goal: Absence of falls Outcome: Partially Met [facility] [facility] DAILY PROGRESS NOTE ========MECHANISM: Fall DIAGNOSIS / REASON FOR CONSULT: Closed traumatic displaced fracture of shaft of right femur with routine healing Assessment & Plan -S/p below procedure -pain control, will add Robaxin PRN for muscle spasms -AM labs including vitamin D, UA (p), pain medication adjustment as pt declines taking Oxycodone INCIDENTAL FINDINGS: RESOLVED PROBLEMS: SURGERIES/PROCEDURES: Date Operation/Procedure Provider Name 08/22 OPEN REDUCTION INTERNAL FIXATION FEMUR RIGHT Yasmine ========TODAY'S ASSESSMENT AND PLAN OF CARE: As above DISPOSITION - TBD ========CHIEF COMPLAINT/ HPI / PFSHx / EVENTS OVER LAST 24HRS: Had a discussion with the patient this afternoon. She tells me she wishes to be a DNR-CCA DNI, we talked about the meaning of this. The patient understands and would like this reflected in her chart. C/o of some muscle spasms. Offered muscle relaxer, declines at this time. No other complaints REVIEW OF SYSTEMS: Other than the above items the remainder of the complete ROS is otherwise unchanged from admission. PHYSICAL EXAM: Temp: [97.3 F (36.3 C)-99.6 F (37.6 C)] 97.3 F (36.3 C) Heart Rate: [77-105] 80 Resp: [13-36] 13 BP: (94-181)/(51-94) 135/64 GENERAL: Appears age appropriate. No acute distress. NEUROLOGICAL: Alert and oriented X 3. Follows commands with extremities x4, No focal neurologic deficits noted. GCS = 15 CARDIOVASCULAR: Regular rate and rhythm. No peripheral edema noted. 2+ pulses radial/DP/PT bilaterally. RESPIRATORY: Respiratory effort unlabored without use of accessory muscles. 2LNC ABDOMINAL: Rounded, soft, nontender, nondistended, No guarding or peritoneal signs. GENITOURINARY: Normal genitalia for age without lesion or trauma. MUSCULOSKELETAL: Extremities atraumatic without gross deformity x4. Dressing to right hip, with some edema noted in the compartment, but still remains soft without deficits/paresthesias SKIN: Skin warm and dry. No rashes or lesions. Intake/Output Summary (Last 24 hours) at 08/22/2023 1301 Last data filed at 08/22/2023 1043 Gross per 24 hour Intake 1120 ml Output 525 ml Net 595 ml IMAGING [briefly note any results pertinent to today's evaluation]: None new LABS Lab Results Component Value Date WBC 15.30 (H) 08/22/2023 HGB 11.8 (L) 08/22/2023 HCT 36.0 08/22/2023 MCV 98.1 08/22/2023 PLT 276 08/22/2023 RBC 3.67 (L) 08/22/2023 Lab Results Component Value Date GLUCOSE 147 (H) 08/22/2023 CALCIUM 9.0 08/22/2023 NA 140 08/22/2023 K 3.6 08/22/2023 CL 107 08/22/2023 BUN 23 08/22/2023 CREATININE 0.72 08/22/2023 No results found for: ALT , AST , GGT , ALKPHOS , BILITOT DAILY CHECKLIST: *Need for Restraints: no *Need for Urinary Catheter: yes, will dc tomorrow *Need for Central Access Devices: no *Stress Ulcer Prophylaxis: protonix- home med *VTE Prophylaxis (Body mass index is 25 kg/m ., Estimated Creatinine Clearance: 44 mL/min (by C-G formula based on SCr of 0.72 mg/dL).): foot pumps, will start in AM if labs stable *Home Medications Reconciled: yes *Code Status: DNR-CCA Brief Post Operative Note Patient Name: Radha Baldwin : 1940 (83 y.o.) Date of Service: 08/22/2023 CSN: [id number] Procedure(s): OPEN REDUCTION INTERNAL FIXATION FEMUR RIGHT Pre-Operative Diagnoses: * Right femur fracture Post-Operative Diagnoses: * Same as Pre-Op Diagnosis Surgeon(s) and Role: * Crissy Luu MD - Primary Anesthesiologist: Javi Hsieh MD RESEARCH PHARMACIST: Patricia Mathias CRNA Coloring Checker: Frieda Padgett RN Management Retail Intern: Montserrat Taylor, TECHNOLOGIST Scrub Person: Lorena Xiong RN Devops: Amberly Zendejas Float: Julienne Bae RN; Kathleen Klein RN Operative findings: see op note Intra and immediate post-operative complications: none Type of anesthesia used: General Estimated blood loss: 200 mL Estimated urine output: 325 mL Specimen(s): * No specimens in log * Implant(s): Implant Name Type Inv. Item Serial No. Event Crew Technician Lot No. LRB No. Used Action PLATE 4.5 X 206MM 11HL BROAD LCP - [id number] PLATE 4.5 X 206MM 11HL BROAD LCP [employer] LT LOAD #[id number] Right 1 Implanted SCREW 4.5 X 32MM CORTEX SELF-TAP - [id number] SCREW 4.5 X 32MM CORTEX SELF-TAP SYNTHES LT LOAD #[id number] Right 5 Implanted SCREW 4.5 X 34MM CORTEX SELF-TAP - [id number] SCREW 4.5 X 34MM CORTEX SELF-TAP SYNTHES LT LOAD #[id number] Right 3 Implanted SCREW 5 X 14MM LOCKING SELF-TAP T25 STRDRV REC - [id number] SCREW 5 X 14MM LOCKING SELF-TAP T25 STRDRV REC SYNTHES LT LOAD #[id number] Right 2 Implanted SCREW 5 X 10MM PERIPROSTHETIC LOCKING S-T STRDRV STERL - [id number] SCREW 5 X 10MM PERIPROSTHETIC LOCKING S-T STRDRV STERL SYNTHES LT [id number] Right 1 Implanted CABLE 1.7 X 750MM W/CRIMP STERL - [id number] CABLE 1.7 X 750MM W/CRIMP STERL SYNTHES LT [id number] Right 3 Implanted Drain(s): * No LDAs found * Wound(s): Wound 08/22/23 1 Surgical Wound Trochanter Right;Lateral;Proximal (Active) Wound Closure Sutures;Rupesh;Surgical Adhesive 08/21/23 0002 Crissy Luu MD 08/22/2023 11:15 AM ATTENDING PHYSICIAN LENO BECK MD PRIMARY CARE PHYSICIAN PHYSICIAN NO ADMITTING PHYSICIAN LENO BECK MD CONSULTING PHYSICIAN LENO BECK MD PREOPERATIVE DIAGNOSIS Right periprosthetic femur fracture. POSTOPERATIVE DIAGNOSIS Right periprosthetic femur fracture. PROCEDURE Open reduction and internal fixation of right femur fracture. ANESTHESIA General anesthetic. COMPLICATIONS No intraoperative complications. SPECIMENS None. ESTIMATED BLOOD LOSS 200 cc. HISTORY Radha is an 83-year-old patient with a history of a hip replacement performed roughly 8 years ago. The patient had a mechanical fall, sustained the femur fracture distal to the tip of the femoral stem. There was no evidence of loosening of the actual femoral stem. Acetabular component appeared to be intact. Femoral appeared to be well-seated, and at this time I informed the patient I did not have enough proximal femur fracture to do a retrograde femoral nailing and that we have to do open reduction and internal fixation. She understands this. She was explained all the risks and complications of surgery, including, but not limited to, the risk of infection, bleeding, neurologic or vascular injury, the possibility of deep venous thrombosis, pulmonary embolism, myocardial infarction, stroke, or even with surgery. Explained the possibilities of continued pain, stiffness, loss of range of motion, nonunion, malunion, hardware failure, as well as the increased risk and complications of blood loss with her history of aspirin and Plavix use secondary to her history of a stroke. The patient understands these risks and complications and consents for surgical intervention. PROCEDURE IN DETAIL Patient was met in the preoperative holding area, where the right femur was confirmed to be the appropriate site and marked by myself. Patient was taken to the operative suite, given preoperative Kefzol per protocol as well as a general anesthetic. Patient placed in the left lateral decubitus position. Right femur and right leg were sterilely prepped and draped using ChloraPrep solution. After sterilization of right leg, we did our final time-out to confirm that the right leg was the appropriate site that had been marked by myself. We then went ahead and proceeded forward with making our skin incision laterally, split the iliotibial band. We then elevated the vastus lateralis off the femur. Femur was anatomically reduced, held with an 11-hole Synthes locking plate. We were able to get 5 screws distal to the fracture, 2 screws distal to the tip of the stem in the proximal portion of the fracture with an interfragmentary screw. We were able to do cable body art technician proximal to that. Once I felt that I had stable anatomic fixation and was happy with the fixation, we saved fluoroscopy images. We then did 3 L of copious irrigation. Vancomycin powder was sprinkled over the contact surface areas of the plate laterally. We then closed the vastus lateralis. We then closed the iliotibial band with #2 Vicryl in a running fashion. 0 Vicryl, 2-0 Vicryl and skin rupesh were used on skin. The patient was placed with a sterile Mepilex dressing, extubated, and taken to PACU without intraoperative complication. D 08/22/2023 11:20 [id number] 08/22/2023 12:12 MCB/MODL OCCUPATIONAL THERAPY VISIT VARIANCE NOTE Attempted to see patient at this time, but unable secondary to: Awaiting Medical Clearance (comment) (Patient in OR at this time. Will follow-up post-operatively.). Will follow up as appropriate. PHYSICAL THERAPY VISIT VARIANCE NOTE Attempted to see patient at this time, but unable secondary to: Awaiting Medical Clearance (comment). Closed traumatic displaced fracture of shaft of right femur with routine healing Assessment & Plan Reduced and splinted. - pain control. - OR in Am with yasmine. Will follow up as appropriate. Patient with emesis at this time Spoke with trauma melisa as patient has nausea and would like regalan rather than zofran order given and med given Problem: Actual or potential alteration in health Goal: Absence of healthcare acquired conditions Outcome: Partially Met Goal: Knowledge of Interdisciplinary Plan of Care Outcome: Partially Met Goal: Knowledge of Enviroment Outcome: Partially Met Problem: Pain Goal: Manage acute pain Outcome: Partially Met Goal: Manage chronic pain Outcome: Partially Met Goal: Reduced pain sensation Outcome: Partially Met Goal: Achievement of comfort function goal Outcome: Partially Met Problem: Pain Goal: Manage acute pain Outcome: Partially Met Goal: Manage chronic pain Outcome: Partially Met Goal: Reduced pain sensation Outcome: Partially Met Goal: Achievement of comfort function goal Outcome: Partially Met Problem: Pressure Ulcer - Risk of Goal: Absence of pressure ulcer Outcome: Partially Met Problem: Falls, Risk of Goal: Absence of falls Outcome: Partially Met Spoke with trauma melisa and was given the ok to loosen the edwin bandage around patient ankle due to c/o pain and numbness to the area Problem: Actual or potential alteration in health Goal: Absence of healthcare acquired conditions 08/21/20231837 by Kelley Garnett RN Outcome: Partially Met 08/21/20231747 by Kelley Garnett RN Outcome: Partially Met Goal: Knowledge of Interdisciplinary Plan of Care 08/21/20231837 by Kelley Garnett RN Outcome: Partially Met 08/21/20231747 by Kelley Garnett RN Outcome: Partially Met Goal: Knowledge of Enviroment 08/21/20231837 by Kelley Garnett RN Outcome: Partially Met 08/21/20231747 by Kelley Garnett RN Outcome: Partially Met Problem: Pain Goal: Manage acute pain 08/21/20231837 by Kelley Garnett RN Outcome: Partially Met 08/21/20231747 by Kelley Garnett RN Outcome: Partially Met Goal: Manage chronic pain 08/21/20231837 by Kelley Garnett RN Outcome: Partially Met 08/21/20231747 by Kelley Garnett RN Outcome: Partially Met Goal: Reduced pain sensation 08/21/20231837 by Kelley Garnett RN Outcome: Partially Met 08/21/20231747 by Kelley Garnett RN Outcome: Partially Met Goal: Achievement of comfort function goal 08/21/20231837 by Kelley Garnett RN Outcome: Partially Met 08/21/20231747 by Kelley Garnett RN Outcome: Partially Met Problem: Pain Goal: Manage acute pain 08/21/20231837 by Kelley Garnett RN Outcome: Partially Met 08/21/20231747 by Kelley Garnett RN Outcome: Partially Met Goal: Manage chronic pain 08/21/20231837 by Kelley Garnett RN Outcome: Partially Met 08/21/20231747 by Kelley Garnett RN Outcome: Partially Met Goal: Reduced pain sensation 08/21/20231837 by Kelley Garnett RN Outcome: Partially Met 08/21/20231747 by Kelley Garnett RN Outcome: Partially Met Goal: Achievement of comfort function goal 08/21/20231837 by Kelley Garnett RN Outcome: Partially Met 08/21/20231747 by Kelley Garnett RN Outcome: Partially Met Problem: Pressure Ulcer - Risk of Goal: Absence of pressure ulcer 08/21/20231837 by Kelley Garnett RN Outcome: Partially Met 08/21/20231747 by Kelley Garnett RN Outcome: Partially Met Problem: Actual or potential alteration in health Goal: Absence of healthcare acquired conditions Outcome: Partially Met Goal: Knowledge of Interdisciplinary Plan of Care Outcome: Partially Met Goal: Knowledge of Enviroment Outcome: Partially Met Problem: Pain Goal: Manage acute pain Outcome: Partially Met Goal: Manage chronic pain Outcome: Partially Met Goal: Reduced pain sensation Outcome: Partially Met Goal: Achievement of comfort function goal Outcome: Partially Met Problem: Pain Goal: Manage acute pain Outcome: Partially Met Goal: Manage chronic pain Outcome: Partially Met Goal: Reduced pain sensation Outcome: Partially Met Goal: Achievement of comfort function goal Outcome: Partially Met Problem: Pressure Ulcer - Risk of Goal: Absence of pressure ulcer Outcome: Partially Met Associated Problem(s): Fall . Associated Problem(s): Closed traumatic displaced fracture of shaft of right femur with routine healing . Splint on and in place Xray at bedside. Attempting to reduce at this time. Xray called. Rt at bedside TRAUMA, CRITICAL CARE, AND ACUTE CARE SURGERY STAFF PHYSICIAN NOTE OF PERSONAL INVOLVEMENT IN CARE: Please link this note as an addendum to the MELISA note with the same day of service. The patient was seen and examined by me, the attending trauma surgeon, on multidisciplinary rounds on the date of service listed above. I have reviewed the MELISA note, labs, studies, and oracle ascp consultant notes. I have reviewed and agree with the documented history, exam, and plan of care, with the following additions and corrections: Radha Baldwin is a 83 y.o. female presenting as Category 2 trauma following a mechanical fall from standing, patient tripped. She is on aspirin and Plavix for history of stroke. On physical examination GCS is 15, he is neurovascularly intact, she is hemodynamically stable. Patient has complaints of right femoral pain with the right lower extremity externally rotated and shortened. Patient also with right knee pain. She states that she fell onto her right knee. Patient has no other complaints, she denies loss of consciousness. Imaging in the trauma bay obtained with R femur fx, will place in traction. Further imaging without further findings. This was a fx due to combination of osteopenia and trauma that alone would not have caused the fracture. Will consult osteoporosis management and check Vit D. Obtained labs and imaging personally reviewed with evidence of R femur fx. Our plan for this patient will be admit to trauma, ortho eval, traction. Pt evaluated at bedside at 1438 on 08/21/23. Admitted with these risk variables:None. Please see assessment and plan for further details. Deric Beck MD, FACS, DABS, DABA Trauma, Acute Care Surgery, Surgical Critical Care, and Neurocritical Care documented in this encounter [facility] 08-28-2023 Note Formatting of this n ote might be different from the original. Reviewed discharge summary with pt. Daughter present. Pt wants to eat lunch the the daughter will be taking her to the facility in [place]. All questions answered, denies any further needs at this time [facility] 08-28-2023 Note Formatting of this n ote might be different from the original. Dressing changed as ordered and pt tolerated well [facility] 08-28-2023 Note Formatting of this n ote might be different from the original. Problem: Actual or potential alteration in health Goal: Absence of healthcare acquired conditions Outcome: Partially Met Goal: Knowledge of Interdisciplinary Plan of Care Outcome: Partially Met Goal: Knowledge of Enviroment Outcome: Partially Met Problem: Pain Goal: Manage acute pain Outcome: Partially Met Goal: Manage chronic pain Outcome: Partially Met Goal: Reduced pain sensation Outcome: Partially Met Goal: Achievement of comfort function goal Outcome: Partially Met Problem: Pain Goal: Manage acute pain Outcome: Partially Met Goal: Manage chronic pain Outcome: Partially Met Goal: Reduced pain sensation Outcome: Partially Met Goal: Achievement of comfort function goal Outcome: Partially Met [facility] 08-28-2023 History of Present illness Narrative Care Management Progress Note Date: 08/28/2023 Time: 11:36 AM Patient Name: Radha Baldwin Date of : 1940 Discharge Plan: [facility] Discharging Transportation Plan: Daughter will transport Discharge Plan Status: Pt has been accepted to [facility], the daughter is going to transport her, pt must be there by 5pm. Unit nurse and trauma team notified. Pt denies any other needs, CM signing off. Axminster Weaver Needle Loom Operator communicated with Leigh with [facility] who reports acceptance. No pre-cert required. Axminster Weaver, Codie Yung, updated via Secure Chat. Nutrition Care Initial Assessment Reason for visit: Dietitian Screen Nutrition Diagnosis: Inability to manage self care related to physical debility as evidenced by requires staff assistance with transfers, personal care. Nutrition Intervention: Initiate meals Nutrition Prescription: Diet: cardiac Nutrition Goals: Patient to tolerate > 75% meals Start Date:08/28/2023 Expected End Date:09/03/2023 Nutrition Education: No needs at this time Assessment: Pertinent clinical information: 08/22 OPEN REDUCTION INTERNAL FIXATION FEMUR RIGHT Yasmine Past Medical History: Diagnosis Date CVA (cerebral vascular accident) (HCC) Hyperlipidemia Height: 5' Current weight: 58.1 kg (128 lb) BMI Body mass index is 25 kg/m . Weight hx: none available Current diet order: cardiac Recent intake: 50-100%. Current intake Likely meets estimated needs. Patient/family comments: no answer on room phone @ this time Difficulty Chewing/Swallowing: No Skin Integrity: Surgical incision R leg GI Function: LBM 08/26/23 Physical Appearance: MAGDA MOSQUERA working @ [facility] this date Labs: Recent Labs 08/26/23 0617 NA 140 K 4.0 BICARB 26 CL 110* GLUCOSE 119* BUN 15 CREATININE 0.46* Scheduled Meds: ascorbic acid (vitamin C) 500 mg Oral BID aspirin 81 mg Oral Daily atorvastatin 10 mg Oral Nightly bisacodyL 10 mg Rectal Daily cholecalciferol (vitamin D3) 1,000 Units Oral BID clopidogreL 75 mg Oral Daily DULoxetine 20 mg Oral Daily enoxaparin (LOVENOX) injection 30 mg Subcutaneous BID lidocaine 1 patch Transdermal Daily pantoprazole 40 mg Oral BID polyethylene glycol 17 g Oral Daily sucralfate 1 g Oral 4x daily vitamin E 400 Units Oral BID Continuous Infusions: Estimated Energy Needs Total Energy Estimated Needs: 1500 kcal Method for Estimating Needs: @ 25 kcal/kg Total Protein Estimated Needs: 60 gm Method for Estimating Needs: @ 1 gm/kg Will continue to follow as needed., while in-house. Office [phone] [place] [facility] DAILY PROGRESS NOTE ========MECHANISM: Fall DIAGNOSIS / REASON FOR CONSULT: Closed traumatic displaced fracture of shaft of right femur with routine healing Assessment & Plan S/p fixation 08/22 Vitamin D sufficient at 43 - Afebrile, VS stable. - tolerating diet, bowel regimen. - pain control, therapies- WBAT, pulmonary hygiene. - pending SNF placement INCIDENTAL FINDINGS: calcified fibroids measuring up to 23 mm RESOLVED PROBLEMS: Acute blood loss anemia SURGERIES/PROCEDURES: Date Operation/Procedure Provider Name 08/22 OPEN REDUCTION INTERNAL FIXATION FEMUR RIGHT Yasmine ========TODAY'S ASSESSMENT AND PLAN OF CARE: As Above DISPOSITION - IPR declined awaiting follow up from [facility] ========CHIEF COMPLAINT/ HPI / PFSHx / EVENTS OVER LAST 24HRS: Patient is resting comfortably in recliner, denies any acute events overnight. Reports she is managing ambulation and that her pain regimen is working. REVIEW OF SYSTEMS: Other than the above items the remainder of the complete ROS is otherwise unchanged from admission. PHYSICAL EXAM: Temp: [97.9 F (36.6 C)-99.9 F (37.7 C)] 98.3 F (36.8 C) Heart Rate: [93-104] 94 Resp: [14-16] 16 BP: (117-131)/(58-79) 131/58 GENERAL: Appears age appropriate. No acute distress. NEUROLOGICAL: Alert and oriented X 3. Follows commands with extremities x4, GCS = 15 CARDIOVASCULAR: No peripheral edema noted. 2+ pulses radial/DP/PT bilaterally. RESPIRATORY: Respiratory effort unlabored without use of accessory muscles. RA ABDOMINAL: Rounded, soft, nontender, nondistended, active bowel sounds. No guarding or peritoneal signs. GENITOURINARY: voiding MUSCULOSKELETAL: Extremities atraumatic without gross deformity x4. Dressing to right hip CDI surrounding area slightly erythematous SKIN: Skin warm and dry. Intake/Output Summary (Last 24 hours) at 08/28/2023 0621 Last data filed at 08/27/2023 1305 Gross per 24 hour Intake -- Output 680 ml Net -680 ml IMAGING [briefly note any results pertinent to today's evaluation]: None new LABS Lab Results Component Value Date WBC 11.76 (H) 08/25/2023 HGB 8.4 (L) 08/25/2023 HCT 25.3 (L) 08/25/2023 MCV 96.6 08/25/2023 PLT 162 08/25/2023 RBC 2.62 (L) 08/25/2023 Lab Results Component Value Date GLUCOSE 119 (H) 08/26/2023 CALCIUM 7.9 (L) 08/26/2023 NA 140 08/26/2023 K 4.0 08/26/2023 CL 110 (H) 08/26/2023 BUN 15 08/26/2023 CREATININE 0.46 (L) 08/26/2023 DAILY CHECKLIST: *Need for Restraints: no *Need for Urinary Catheter: no *Need for Central Access Devices: no *Stress Ulcer Prophylaxis: protonix- home med *VTE Prophylaxis (Body mass index is 25 kg/m ., Estimated Creatinine Clearance: 68.9 mL/min (A) (by C-G formula based on SCr of 0.46 mg/dL (L)).): Plavix and asa *Home Medications Reconciled: yes *Code Status: DNR-CCA Associated attestation - Leno Beck MD - 08/28/2023 10:51 AM EST TRAUMA/ ACUTE CARE SURGERY ATTENDING NOTE Please link this note as an addendum to the MELISA note with the same day of service. The patient was seen and examined by me, the attending trauma surgeon, on multidisciplinary rounds on the date of service listed above. I have reviewed the MELISA note, labs, studies, and oracle ascp consultant notes. I have reviewed and agree with the documented history, exam, and plan of care, with the following additions and corrections: Today: Radha Baldwin is a 83 y.o. female presenting with R femur fx following fall. S/p fixation with ortho. Working toward dispo to facility. Lovenox, home meds. A comprehensive review of systems was performed with the pt and all systems reviewed were negative except those listed in the HPI. Deric Beck MD, FACS, DABS, DABA Trauma, Acute Care Surgery, Surgical Critical Care, and Neurocritical Care Communicated with the patient and daughter, who chose [facility]. Referral(s) sent, awaiting follow-up. Care Management Progress Note Date: 08/27/2023 Time: 10:27 AM Patient Name: Radha Baldwin Date of : 1940 Discharge Plan: To be determined Discharging Transportation Plan: Discharge Plan Status: IPR declined- states that another level of care would be more appropriate for this patient. This CM spoke with pt on phone to discuss, pt second choice was [facility], pt would like to discuss with her daughter when she comes in later today before sending referral to [facility]. CM will continue to follow. 1415- this CM notified by unit nurse that pt is asking about going to a SNF, notified Maryann OBREGON to get pt and her DTR a list of SNF choices. has reviewed the patients chart and feels that another level of care would be more appropriate for this patient [facility] DAILY PROGRESS NOTE == MECHANISM: Fall DIAGNOSIS / REASON FOR CONSULT: Closed traumatic displaced fracture of shaft of right femur with routine healing Assessment & Plan S/p fixation 08/22 Vitamin D sufficient at 43 -Afebrile, VS stable. -tolerating diet, bowel regimen. - pain control, therapies- WBAT, pulmonary hygiene. Acute blood loss anemia Assessment & Plan Secondary to trauma, and surgical losses Aspirin and plavix resumed per ortho S/p 1 unit prbc 08/23 -H/h stable. VS stable. INCIDENTAL FINDINGS: RESOLVED PROBLEMS: SURGERIES/PROCEDURES: Date Operation/Procedure Provider Name 08/22 OPEN REDUCTION INTERNAL FIXATION FEMUR RIGHT Yasmine TODAY'S ASSESSMENT AND PLAN OF CARE: As above DISPOSITION - Referral to [facility]/IPR consult placed CHIEF COMPLAINT/ HPI / PFSHx / EVENTS OVER LAST 24HRS: Sitting up in recliner. Endorses discomfort to right leg but states tolerable and takes pain meds as needed. She states she felt anxious last night but not sure why. She states she takes Benadryl at night for sleep and she has not been getting it in the hospital- discussed restating but monitoring for confusion. REVIEW OF SYSTEMS: Other than the above items the remainder of the complete ROS is otherwise unchanged from admission. PHYSICAL EXAM: Temp: [97.4 F (36.3 C)-98.7 F (37.1 C)] 97.4 F (36.3 C) Heart Rate: [85-100] 91 Resp: [16-18] 16 BP: (108-128)/(49-64) 108/55 GENERAL: Appears age appropriate. No acute distress. NEUROLOGICAL: Alert and oriented X 3. Follows commands with extremities x4, GCS = 15 CARDIOVASCULAR: Regular rate and rhythm. No peripheral edema noted. 2+ pulses radial/DP/PT bilaterally. RESPIRATORY: Lung sounds clear. Respiratory effort unlabored without use of accessory muscles. RA ABDOMINAL: Rounded, soft, nontender, nondistended, active bowel sounds. No guarding or peritoneal signs. GENITOURINARY: voiding MUSCULOSKELETAL: Extremities atraumatic without gross deformity x4. Dressing to right hip CDI SKIN: Skin warm and dry. No intake or output data in the 24 hours ending 08/27/23 0622 IMAGING [briefly note any results pertinent to today's evaluation]: None new LABS Lab Results Component Value Date WBC 11.76 (H) 08/25/2023 HGB 8.4 (L) 08/25/2023 HCT 25.3 (L) 08/25/2023 MCV 96.6 08/25/2023 PLT 162 08/25/2023 RBC 2.62 (L) 08/25/2023 Lab Results Component Value Date GLUCOSE 119 (H) 08/26/2023 CALCIUM 7.9 (L) 08/26/2023 NA 140 08/26/2023 K 4.0 08/26/2023 CL 110 (H) 08/26/2023 BUN 15 08/26/2023 CREATININE 0.46 (L) 08/26/2023 No results found for: ALT , AST , GGT , ALKPHOS , BILITOT DAILY CHECKLIST: *Need for Restraints: no *Need for Urinary Catheter: no *Need for Central Access Devices: no *Stress Ulcer Prophylaxis: protonix- home med *VTE Prophylaxis (Body mass index is 25 kg/m ., Estimated Creatinine Clearance: 68.9 mL/min (A) (by C-G formula based on SCr of 0.46 mg/dL (L)).): ,lovenox 30 mg BID *Home Medications Reconciled: yes *Code Status: DNR-CCA Associated attestation - Leno Beck MD - 08/27/2023 1:35 PM EST TRAUMA/ ACUTE CARE SURGERY ATTENDING NOTE Please link this note as an addendum to the MELISA note with the same day of service. The patient was seen and examined by me, the attending trauma surgeon, on multidisciplinary rounds on the date of service listed above. I have reviewed the MELISA note, labs, studies, and oracle ascp consultant notes. I have reviewed and agree with the documented history, exam, and plan of care, with the following additions and corrections: Today: Radha Baldwin is a 83 y.o. female presenting with R femur fx following fall. S/p fixation with ortho. Working toward dispo. Lovenox, home meds, dispo planning for IPR. A comprehensive review of systems was performed with the pt and all systems reviewed were negative except those listed in the HPI. Deric Beck MD, FACS, DABS, DABA Trauma, Acute Care Surgery, Surgical Critical Care, and Neurocritical Care Physical Therapy PHYSICAL THERAPY TREATMENT NOTE Skilled Therapy Needs After Discharge Anticipate Resolution of Current Assessment Limitations Including: Pain, Mechanical Barriers, Social Support Are Skilled Therapy Services Needed After Discharge: Yes Intensity of Skilled Therapy: 5 to 7 days per week DME Recommendation: Wheeled Walker (bed transfer assist bar) DME Rationale: Patient's condition prevents him/her from accomplishing ADL without recommended equipment, Patient's condition creates an increased risk of safety hazard without recommended equipment, Equipment required to maintain weight bearing status per physician orders, Unreasonable time frame to complete ADL without recommended equipment, Patient will require increased level of care without recommended equipment Rehab Potential: Good, For goals Outcomes Measures AM-PAC Basic Mobility Raw Score: 12 Points AM-PAC Basic Mobility % Impaired: 61.94% Activity Tolerance Activity Tolerance: Tolerates 20 - 30 min activity with multiple rests Therapy Precautions Orthotic Devices: No Weight Bearing Status: X RLE: Wt bearing as tolerated General Rehab Precautions: Fall risk (oxygen NC 2 liters) Balance Sitting Balance - Static: Contact guard assist Loss of Balance - Sitting Static: intermittent Sitting Balance - Dynamic: Contact guard assist Loss of Balance - Sitting Dynamic: intermittent Sitting Balance Treatment: weight shifting anterior, postural re-education, maintaining midline orientation Standing Balance - Static: Minimal assist Hospice Registered Nurse - Standing Static: wheeled walker Loss of Balance- Standing Static: intermittent Standing Balance - Dynamic: Minimal assist, Moderate assist Hospice Registered Nurse - Standing Dynamic: same aids social worker used for static standing tasks Loss of Balance- Standing Dynamic: intermittent Bed Mobility Rolling: (pt was sitting up in recliner upon arrival) Transfers Sit to Stand: Moderate assist Hospice Registered Nurse: wheeled walker For: LE positioning, UE management, controlled descent, proper body mechanics, safe use of AD and/or equipment Resulting in: increased upright tolerance for functional tasks, improved performance, improved activity tolerance Gait/Locomotion Gait Assistance: Minimal assist Assistive Device: wheeled walker Distance: 23 Feet Pattern: step to, R decreased stance time, R impaired heel strike, R decreased step length, L decreased step length, R foot drop, forward flexed, over reliance on upper extremities, decreased ranjan (steps per minute) Weight Bearing Status: able to maintain Gait Loss(es) of Balance: intermittent Environment/Terrain: open/community environment, multiple distractions (foloowed by chair for safety) Skilled Intervention Provided: verbal cues, tactile cues, facilitation, monitoring patient response with activity, patient education For: device management and safe use of device, gait sequence, gait technique, attention to task, breathing techniques Resulting in: increased upright tolerance for functional tasks, improved activity tolerance, improved performance, improved safety (pt amb on RA this date. Pt required 2-3 short standing rest breaks secondary to fatigue but tolerated well) Exercise Supine Exercises: marie LE therex in supine x 15 each with 3 sec holds for strength and endurance Skilled Intervention Provided: verbal cues, tactile cues, facilitation, instruction on proper technique/alignment For: achieving full ROM as tolerated, proper positioning of extremity, muscle activation, hold duration, efficient movement Resulting in: improved functional strength/ROM, improved activity tolerance, efficient movement Additional Treatment Details Home Living Obtained Home Living and PLOF info from: Patient Lives With: Alone Type of Home: House Home Layout: One level (laundry main floor. with 2 cats and 2 dogs.) Steps to enter home: Yes Rails to enter home: 1 rail Number of stairs to enter home: 2 Bathroom Shower/Tub: Walk-in shower Bathroom Toilet: Raised Bathroom Equipment: Grab bars in shower, Bulit-in shower seat, Hand-held showerhead, Grab bars around toilet Mobility Equipment: Cane ADL Equipment: Tableau Architect, Long handled shoe horn Prior Level of Function Level of [place] - Transfers/Ambulation/Mobility: Independent with functional transfers, Independent with household ambulation, Independent with community ambulation Level of [place] - ADLs: Independent Level of [place] - Homemaking: Independent Driving: Patient drives Vocational: Retired (RN) Leisure: pets For complete objective data, detailed plan of care and patient education refer to: PT Evaluation flowsheet, PT Evaluation and Treatment flowsheet, PT Treatment flowsheet, patient Plan of Care, Plan of Care progress note, and Patient Education. This note stands as the current Discharge Summary upon patient discharge from the hospital or completion of Physical Therapy Plan of Care. [facility] DAILY PROGRESS NOTE == MECHANISM: Fall DIAGNOSIS / REASON FOR CONSULT: Closed traumatic displaced fracture of shaft of right femur with routine healing Assessment & Plan S/p fixation 08/22 Vitamin D sufficient at 43 - pain control, therapies- WBAT Acute blood loss anemia Assessment & Plan Secondary to trauma, and surgical losses Aspirin and plavix resumed per ortho S/p 1 unit prbc 08/23 H/h stable. INCIDENTAL FINDINGS: RESOLVED PROBLEMS: SURGERIES/PROCEDURES: Date Operation/Procedure Provider Name 08/22 OPEN REDUCTION INTERNAL FIXATION FEMUR RIGHT Yasmine TODAY'S ASSESSMENT AND PLAN OF CARE: As above DISPOSITION - Referral to [facility] CHIEF COMPLAINT/ HPI / PFSHx / EVENTS OVER LAST 24HRS: Sitting up in recliner. Minimal pain to right hip. REVIEW OF SYSTEMS: Other than the above items the remainder of the complete ROS is otherwise unchanged from admission. PHYSICAL EXAM: Temp: [98 F (36.7 C)-98.7 F (37.1 C)] 98 F (36.7 C) Heart Rate: [86-100] 100 Resp: [16-18] 16 BP: (104-136)/(54-73) 111/57 GENERAL: Appears age appropriate. No acute distress. NEUROLOGICAL: Alert and oriented X 3. Follows commands with extremities x4, GCS = 15 CARDIOVASCULAR: Regular rate and rhythm. No peripheral edema noted. 2+ pulses radial/DP/PT bilaterally. RESPIRATORY: Respiratory effort unlabored without use of accessory muscles. ABDOMINAL: Rounded, soft, nontender, nondistended, No guarding or peritoneal signs. GENITOURINARY: voiding MUSCULOSKELETAL: Extremities atraumatic without gross deformity x4. Dressing to right hip CDI SKIN: Skin warm and dry. Intake/Output Summary (Last 24 hours) at 08/26/2023 1212 Last data filed at 08/25/20232033 Gross per 24 hour Intake 240 ml Output -- Net 240 ml IMAGING [briefly note any results pertinent to today's evaluation]: None new LABS Lab Results Component Value Date WBC 11.76 (H) 08/25/2023 HGB 8.4 (L) 08/25/2023 HCT 25.3 (L) 08/25/2023 MCV 96.6 08/25/2023 PLT 162 08/25/2023 RBC 2.62 (L) 08/25/2023 Lab Results Component Value Date GLUCOSE 119 (H) 08/26/2023 CALCIUM 7.9 (L) 08/26/2023 NA 140 08/26/2023 K 4.0 08/26/2023 CL 110 (H) 08/26/2023 BUN 15 08/26/2023 CREATININE 0.46 (L) 08/26/2023 No results found for: ALT , AST , GGT , ALKPHOS , BILITOT DAILY CHECKLIST: *Need for Restraints: no *Need for Urinary Catheter: no *Need for Central Access Devices: no *Stress Ulcer Prophylaxis: protonix- home med *VTE Prophylaxis (Body mass index is 25 kg/m ., Estimated Creatinine Clearance: 68.9 mL/min (A) (by C-G formula based on SCr of 0.46 mg/dL (L)).): ,lovenox 30 mg BID *Home Medications Reconciled: yes *Code Status: DNR-CCA Occupational Therapy OCCUPATIONAL THERAPY TREATMENT NOTE Skilled Therapy Needs After Discharge Anticipate Resolution of Current Assessment Limitations Including: Pain, Mechanical Barriers Are Skilled Therapy Services Needed After Discharge: Yes Intensity of Skilled Therapy: 5 to 7 days per week Anticipated Duration of Skilled Therapy: Duration 7 - 10 days DME Recommendation: To be determined at next level of care Rehab Potential: Excellent, For goals Outcomes Measures Prior Function Daily Activity Raw Score: 24 Prior Function Daily Activity % Impaired: 0% AM-PAC Daily Activity Raw Score: 16 AM-PAC Daily Activity % Impaired: 53.32% Activity Tolerance Activity Tolerance: Tolerates 20 - 30 min activity with multiple rests Therapy Precautions Weight Bearing Status: X RLE: Wt bearing as tolerated General Rehab Precautions: Fall risk Cognition Overall Cognitive Status: Within Functional Limits Arousal/Alertness: Appropriate responses to stimuli Orientation Level: Oriented X4 Executive functioning: Insight Safety Judgment: Decreased awareness of need for safety Problem Solving: Assistance required to identify errors made, Assistance required to generate solutions Attention: Attends to quiet environment Hearing Status: WFL Social Interaction: Appropriate, Cooperative Comments: Pt following all commands throughout session ADL Toileting: Moderate assist (Pt completing pericare while seated, mod A for balance and CM while standing) Toileting - Skilled Intervention Provided: verbal cues, facilitation, monitored patient's safety and tolerance, patient education Toileting - For: efficient movement, fall prevention Toileting - Resulting In: improved activity tolerance, improved performance with ADLs, improved safety Functional Mobility: Contact guard assist, Additional time, Adaptive equipment (Small steps from recliner to BSC using FWW, slow BLE movements and pt stating I have to focus to move my feet ) Functional Mobility - Skilled Intervention Provided: verbal cues, facilitation, monitoring patient response with activity Functional Mobility - For: LE management, efficient movement, fall prevention Functional Mobility - Resulting In: improved activity tolerance, improved balance, improved performance, improved safety Functional Transfers Sit to Stand: Moderate assist (Standing from recliner to FWW, min verbal cues for proper hand placement) Toilet Transfers: Moderate assist, to/from bedside commode (CGA to transfer onto [facility], mod A when transferring off of [facility]) Hospice Registered Nurse: wheeled walker Skilled Intervention Provided: verbal cues, monitoring patient response with activity For: efficient movement, fall prevention, UE positioning Resulting In: improved activity tolerance, improved balance, improved safety, improved performance Exercise Seated Exercises: Pt completing 7 BUE AROM exercises x15-20 reps, requiring min verbal cues for proper technique and 1 brief rest break d/t fatigue Skilled intervention provided: verbal cues, demonstration, instruction on proper technique/alignment For: achieving full ROM as tolerated, efficient movement Resulting In: efficient movement, improved activity tolerance, improved functional strength/ROM Home Living Obtained Home Living and PLOF info from: Patient Lives With: Alone Type of Home: House Home Layout: One level (laundry main floor. with 2 cats and 2 dogs.) Steps to enter home: Yes Rails to enter home: 1 rail Number of stairs to enter home: 2 Bathroom Shower/Tub: Walk-in shower Bathroom Toilet: Raised Bathroom Equipment: Grab bars in shower, Bulit-in shower seat, Hand-held showerhead, Grab bars around toilet Mobility Equipment: Cane ADL Equipment: Tableau Architect, Long handled shoe horn Prior Level of Function Level of [place] - Transfers/Ambulation/Mobility: Independent with functional transfers, Independent with household ambulation, Independent with community ambulation Level of [place] - ADLs: Independent Level of [place] - Homemaking: Independent Driving: Patient drives Vocational: Retired (RN) Leisure: pets For complete objective data, detailed plan of care and patient education refer to: OT Evaluation flowsheet, OT Evaluation and Treatment flowsheet, OT Treatment flowsheet, patient Plan of Care, Plan of Care progress note, and Patient Education. This note stands as the current Discharge Summary upon patient discharge from the hospital or completion of Occupational Therapy Plan of Care. Occupational Therapy OCCUPATIONAL THERAPY TREATMENT NOTE Skilled Therapy Needs After Discharge Anticipate Resolution of Current Assessment Limitations Including: Pain, Mechanical Barriers Are Skilled Therapy Services Needed After Discharge: Yes Intensity of Skilled Therapy: 5 to 7 days per week Anticipated Duration of Skilled Therapy: Duration 7 - 10 days DME Recommendation: To be determined at next level of care Rehab Potential: Excellent, For goals Outcomes Measures Prior Function Daily Activity Raw Score: 24 Prior Function Daily Activity % Impaired: 0% AM-PAC Daily Activity Raw Score: 16 AM-PAC Daily Activity % Impaired: 53.32% Activity Tolerance Activity Tolerance: Tolerates 10 - 20 min activity with multiple rests Therapy Precautions Weight Bearing Status: X RLE: Wt bearing as tolerated General Rehab Precautions: Fall risk Cognition Overall Cognitive Status: Within Functional Limits Arousal/Alertness: Appropriate responses to stimuli Orientation Level: Oriented X4 Safety Judgment: Decreased awareness of need for safety Problem Solving: Assistance required to identify errors made, Assistance required to generate solutions, Assistance required to implement solutions Attention: Attends to quiet environment Hearing Status: WFL Social Interaction: Irritable, Cooperative Comments: Followed all commands. ADL Lower Body Dressing: Max assist, Use of adaptive equipment (min A for LB dressing with AE. CR D for managment of pants to waist. Pt declined to attempt to stand. Reported she was familiar with AE and stated I have my own way I use the human service specialist. ) Functional Mobility: (declined reporting she exerted herself too much with LB dressing and unable to attempt to amb.) Overall ADL Performance - Skilled Intervention Provided: verbal cues, monitoring patient response with activity Overall ADL Performance - For: attention to task, adaptive equipment use Overall ADL Performance - Resulting In: improved participation in ADL task(s) Functional Transfers Sit to Stand: (declined) Home Living Obtained Home Living and PLOF info from: Patient Lives With: Alone Type of Home: House Home Layout: One level (laundry main floor. with 2 cats and 2 dogs.) Steps to enter home: Yes Rails to enter home: 1 rail Number of stairs to enter home: 2 Bathroom Shower/Tub: Walk-in shower Bathroom Toilet: Raised Bathroom Equipment: Grab bars in shower, Bulit-in shower seat, Hand-held showerhead, Grab bars around toilet Mobility Equipment: Cane ADL Equipment: Tableau Architect, Long handled shoe horn Prior Level of Function Level of [place] - Transfers/Ambulation/Mobility: Independent with functional transfers, Independent with household ambulation, Independent with community ambulation Level of [place] - ADLs: Independent Level of [place] - Homemaking: Independent Driving: Patient drives Vocational: Retired (RN) Leisure: pets For complete objective data, detailed plan of care and patient education refer to: OT Evaluation flowsheet, OT Evaluation and Treatment flowsheet, OT Treatment flowsheet, patient Plan of Care, Plan of Care progress note, and Patient Education. This note stands as the current Discharge Summary upon patient discharge from the hospital or completion of Occupational Therapy Plan of Care. Consult received in review Care Management Progress Note Date: 08/25/2023 Time: 3:04 PM Patient Name: Radha Baldwin Date of : 1940 Discharge Plan: To be determined Discharging Transportation Plan: To be determined Discharge Plan Status: Pt sitting up in chair with daughter sitting at the bedside as well, pt [facility] by [facility], according to PT recommendation pt could be a good candidate for IPR. IPR consult placed and secure chat sent for referral. CM will continue to follow. Physical Therapy PHYSICAL THERAPY TREATMENT NOTE Skilled Therapy Needs After Discharge Anticipate Resolution of Current Assessment Limitations Including: Pain, Mechanical Barriers, Social Support Are Skilled Therapy Services Needed After Discharge: Yes Intensity of Skilled Therapy: 5 to 7 days per week DME Recommendation: Wheeled Walker (bed transfer assist bar) DME Rationale: Patient's condition prevents him/her from accomplishing ADL without recommended equipment, Patient's condition creates an increased risk of safety hazard without recommended equipment, Equipment required to maintain weight bearing status per physician orders, Unreasonable time frame to complete ADL without recommended equipment, Patient will require increased level of care without recommended equipment Rehab Potential: Good, For goals Outcomes Measures AM-PAC Basic Mobility Raw Score: 11 Points AM-PAC Basic Mobility % Impaired: 66.76% Activity Tolerance Activity Tolerance: Tolerates 20 - 30 min activity with multiple rests Therapy Precautions Orthotic Devices: No Weight Bearing Status: X RLE: Wt bearing as tolerated General Rehab Precautions: Fall risk (oxygen NC 2 liters) Balance Sitting Balance - Static: Contact guard assist Sitting Balance - Dynamic: Contact guard assist Loss of Balance - Sitting Dynamic: intermittent Sitting Balance Treatment: weight shifting anterior, postural re-education, maintaining midline orientation Standing Balance - Static: Minimal assist Hospice Registered Nurse - Standing Static: wheeled walker Loss of Balance- Standing Static: intermittent Standing Balance - Dynamic: Minimal assist, Moderate assist Hospice Registered Nurse - Standing Dynamic: same aids social worker used for static standing tasks Loss of Balance- Standing Dynamic: intermittent Standing Balance Treatment: weight shifting anterior, postural re-education, maintaining midline, varying base of support, stepping forward, stepping backward Skilled Intervention Provided: verbal cues, tactile cues, facilitation, patient education For: attention to affected UE/LE, balance recovery, trunk control, postural alignment, fall prevention, compensatory strategies, LE positioning Resulting in: increased upright tolerance for functional tasks, improved trunk stability, improved motor control, improved balance reactions, improved activity tolerance Bed Mobility Rolling: (pt was sitting up in chair upon arrival) Transfers Sit to Stand: Moderate assist Bed to Chair: Minimal assist, Moderate assist Stand Pivot Transfers: Moderate assist Hospice Registered Nurse: wheeled walker Additional Transfer Trial 2: Yes Sit to Stand Trial 2: Moderate assist Hospice Registered Nurse Trial 2: wheeled walker Skilled Intervention Provided: verbal cues, tactile cues, facilitation, patient education For: LE positioning, UE management, controlled descent, safety during functional tasks, safe use of AD and/or equipment Resulting in: increased upright tolerance for functional tasks, improved activity tolerance, improved performance, improved safety Gait/Locomotion Gait Assistance: Minimal assist Assistive Device: wheeled walker Distance: 23 Feet Pattern: step to, R decreased stance time, R foot drop, R impaired heel strike, R decreased step length, L decreased step length, over reliance on upper extremities, forward flexed, antalgic, decreased ranjan (steps per minute) Weight Bearing Status: able to maintain Gait Loss(es) of Balance: intermittent Environment/Terrain: open/community environment, multiple distractions (followed by chair for safety) Skilled Intervention Provided: verbal cues, tactile cues, facilitation, monitoring patient response with activity, patient education For: device management and safe use of device, gait sequence, gait technique, attention to task, breathing techniques, LE management, LE positioning Resulting in: increased upright tolerance for functional tasks, improved performance, improved activity tolerance, improved safety Exercise Supine Exercises: pt performed marie LE therex in supine x 15 each with AAROM for Lt LE to improve strengthening Skilled Intervention Provided: verbal cues, tactile cues, facilitation, instruction on proper technique/alignment, patient education For: achieving full ROM as tolerated, proper positioning of extremity, muscle activation, hold duration, fall prevention Resulting in: improved functional strength/ROM, improved activity tolerance, efficient movement Additional Treatment Details Home Living Obtained Home Living and PLOF info from: Patient Lives With: Alone Type of Home: House Home Layout: One level (laundry main floor. with 2 cats and 2 dogs.) Steps to enter home: Yes Rails to enter home: 1 rail Number of stairs to enter home: 2 Bathroom Shower/Tub: Walk-in shower Bathroom Toilet: Raised Bathroom Equipment: Grab bars in shower, Bulit-in shower seat, Hand-held showerhead, Grab bars around toilet Mobility Equipment: Cane ADL Equipment: Tableau Architect, Long handled shoe horn Prior Level of Function Level of [place] - Transfers/Ambulation/Mobility: Independent with functional transfers, Independent with household ambulation, Independent with community ambulation Level of [place] - ADLs: Independent Level of [place] - Homemaking: Independent Driving: Patient drives Vocational: Retired (RN) Leisure: pets For complete objective data, detailed plan of care and patient education refer to: PT Evaluation flowsheet, PT Evaluation and Treatment flowsheet, PT Treatment flowsheet, patient Plan of Care, Plan of Care progress note, and Patient Education. This note stands as the current Discharge Summary upon patient discharge from the hospital or completion of Physical Therapy Plan of Care. [facility] DAILY PROGRESS NOTE ========MECHANISM: Fall DIAGNOSIS / REASON FOR CONSULT: Closed traumatic displaced fracture of shaft of right femur with routine healing Assessment & Plan S/p below procedure Vitamin D sufficient at 43 - pain control, therapies- WBAT - wean supplemental oxygen as tolerated Acute blood loss anemia Assessment & Plan Secondary to trauma, and surgical losses Aspirin and plavix resumed per ortho S/p 1 unit prbc 08/23 Hgb 8.4 (8); 11.8 pre-operatively Monitor * Fall Assessment & Plan UA with trace leukocytes Urinating without difficulty Culture pending INCIDENTAL FINDINGS: RESOLVED PROBLEMS: SURGERIES/PROCEDURES: Date Operation/Procedure Provider Name 08/22 OPEN REDUCTION INTERNAL FIXATION FEMUR RIGHT Yasmine ========TODAY'S ASSESSMENT AND PLAN OF CARE: As above DISPOSITION - Referral to [facility] ========CHIEF COMPLAINT/ HPI / PFSHx / EVENTS OVER LAST 24HRS: Resting in bed, no acute overnight events. Endorses right leg pain with activity. REVIEW OF SYSTEMS: Other than the above items the remainder of the complete ROS is otherwise unchanged from admission. PHYSICAL EXAM: Temp: [98.4 F (36.9 C)-99.4 F (37.4 C)] 98.8 F (37.1 C) Heart Rate: [77-98] 89 Resp: [16-18] 16 BP: (111-152)/(54-78) 125/59 GENERAL: Appears age appropriate. No acute distress. NEUROLOGICAL: Alert and oriented X 3. Follows commands with extremities x4, No focal neurologic deficits noted. GCS = 15 CARDIOVASCULAR: Regular rate and rhythm. No peripheral edema noted. 2+ pulses radial/DP/PT bilaterally. RESPIRATORY: Respiratory effort unlabored without use of accessory muscles. 2LNC ABDOMINAL: Rounded, soft, nontender, nondistended, No guarding or peritoneal signs. GENITOURINARY: voiding clear yellow urine vis pure wick MUSCULOSKELETAL: Extremities atraumatic without gross deformity x4. Dressing to right hip, edema noted, but still remains soft without deficits/paresthesias SKIN: Skin warm and dry. No rashes or lesions. Intake/Output Summary (Last 24 hours) at 08/25/2023 0638 Last data filed at 08/25/2023 0600 Gross per 24 hour Intake 730 ml Output -- Net 730 ml IMAGING [briefly note any results pertinent to today's evaluation]: None new LABS Lab Results Component Value Date WBC 11.76 (H) 08/25/2023 HGB 8.4 (L) 08/25/2023 HCT 25.3 (L) 08/25/2023 MCV 96.6 08/25/2023 PLT 162 08/25/2023 RBC 2.62 (L) 08/25/2023 Lab Results Component Value Date GLUCOSE 125 (H) 08/25/2023 CALCIUM 7.8 (L) 08/25/2023 NA 139 08/25/2023 K 3.2 (L) 08/25/2023 CL 107 08/25/2023 BUN 13 08/25/2023 CREATININE 0.40 (L) 08/25/2023 No results found for: ALT , AST , GGT , ALKPHOS , BILITOT DAILY CHECKLIST: *Need for Restraints: no *Need for Urinary Catheter: no *Need for Central Access Devices: no *Stress Ulcer Prophylaxis: protonix- home med *VTE Prophylaxis (Body mass index is 25 kg/m ., Estimated Creatinine Clearance: 79.2 mL/min (A) (by C-G formula based on SCr of 0.4 mg/dL (L)).): SCDs, aspirin and plavix *Home Medications Reconciled: yes *Code Status: DNR-CCA Associated attestation - Leno Beck MD - 08/25/2023 1:57 PM EST TRAUMA/ ACUTE CARE SURGERY ATTENDING NOTE Please link this note as an addendum to the MELISA note with the same day of service. The patient was seen and examined by me, the attending trauma surgeon, on multidisciplinary rounds on the date of service listed above. I have reviewed the MELISA note, labs, studies, and oracle ascp consultant notes. I have reviewed and agree with the documented history, exam, and plan of care, with the following additions and corrections: Today: Radha Baldwin is a 83 y.o. female presenting with R femur fx following fall. S/p fixation with ortho. Working toward dispo. Pt with constipation, does not want liquid milk of mag. HypoK today, will replace. Lovenox, home meds, dispo planning. Pertinent labs and imaging personally reviewed with evidence of hypoK, stable ABLA. A comprehensive review of systems was performed with the pt and all systems reviewed were negative except those listed in the HPI. Constipation. Deric Beck MD, FACS, DABS, DABA Trauma, Acute Care Surgery, Surgical Critical Care, and Neurocritical Care ATTENDING PHYSICIAN LENO BECK MD PRIMARY CARE PHYSICIAN PHYSICIAN NO ADMITTING PHYSICIAN LENO BECK MD CONSULTING PHYSICIAN LENO BECK MD She is 2 days status post ORIF right periprosthetic femur fracture. At this point in time, she is in good spirits today. Vital signs are stable, afebrile. Hemoglobin 8.0. Wound is clean, dry, intact. No erythema. No drainage. No lymphangitis. No cellulitis. IMPRESSION Postoperative day 2 right femur open reduction internal fixation. PLAN At this point in time, she will do weightbearing as tolerated. Discharge planning is underway. Further recommendations to follow. D 08/24/2023 17:47 [id number] T 08/24/2023 20:05 MCB/MODL Physical Therapy PHYSICAL THERAPY TREATMENT NOTE Skilled Therapy Needs After Discharge Anticipate Resolution of Current Assessment Limitations Including: Pain, Mechanical Barriers, Social Support Are Skilled Therapy Services Needed After Discharge: Yes Intensity of Skilled Therapy: 5 to 7 days per week DME Recommendation: Wheeled Walker (bed transfer assist bar) DME Rationale: Patient's condition prevents him/her from accomplishing ADL without recommended equipment, Patient's condition creates an increased risk of safety hazard without recommended equipment, Equipment required to maintain weight bearing status per physician orders, Unreasonable time frame to complete ADL without recommended equipment, Patient will require increased level of care without recommended equipment Rehab Potential: Good, For goals Outcomes Measures [facility] Basic Mobility Raw Score: 10 Points [facility] Basic Mobility % Impaired: 71.92% Activity Tolerance Activity Tolerance: Tolerates 20 - 30 min activity with multiple rests Therapy Precautions Orthotic Devices: No Weight Bearing Status: X RLE: Wt bearing as tolerated General Rehab Precautions: Fall risk (oxygen NC 2 liters) Balance Sitting Balance - Static: Contact guard assist Loss of Balance - Sitting Static: intermittent Sitting Balance - Dynamic: Contact guard assist, Minimal assist Loss of Balance - Sitting Dynamic: intermittent Sitting Balance Treatment: weight shifting anterior, postural re-education, maintaining midline orientation Skilled Intervention Provided: verbal cues, tactile cues, facilitation, neuromuscular re-education For: balance recovery, attention to affected UE/LE, compensatory strategies, LE positioning Resulting in: improved balance reactions, improved activity tolerance Standing Balance - Static: Moderate assist, Maximal assist Hospice Registered Nurse - Standing Static: wheeled walker, BUE Loss of Balance- Standing Static: multidirectional, intermittent Standing Balance - Dynamic: Maximal assist Hospice Registered Nurse - Standing Dynamic: same aids social worker used for static standing tasks Loss of Balance- Standing Dynamic: multidirectional Standing Balance Treatment: weight shifting anterior, weight shifting right, weight shifting left, postural re-education, maintaining midline, varying base of support Skilled Intervention Provided: verbal cues, tactile cues, facilitation, neuromuscular re-education For: attention to affected UE/LE, balance recovery, attention to task, LE positioning Resulting in: improved caregiver/family safety, improved balance reactions, improved awareness, improved activity tolerance (pt presented with difficulties advancing Lt LE secondary to Rt LE pain) Bed Mobility Rolling: Maximal assist Supine to Sit: Maximal assist Hospice Registered Nurse: bedrails, bed positioning mechanics Skilled Intervention Provided: verbal cues, tactile cues, facilitation For: safe use of bedrails and/or equipment, sequencing of movement Resulting in: improved activity tolerance, improved awareness Transfers Sit to Stand: Moderate assist, Maximal assist Bed to Chair: Maximal assist Stand Pivot Transfers: Maximal assist Hospice Registered Nurse: BUE Additional Transfer Trial 2: Yes Sit to Stand Trial 2: (pt performed STS and pivot transfers x 3 with ADMISSIONS CLERK in front for safety.) Gait/Locomotion Unable at this time Exercise Supine Exercises: marie LE AP, QS, SAQ, x 15 each x 3 sec holds Seated Exercises: x 15 marie LAQ with AAROM Skilled Intervention Provided: verbal cues, tactile cues, facilitation, instruction on proper technique/alignment For: achieving full ROM as tolerated, hold duration, efficient movement Resulting in: improved functional strength/ROM, improved activity tolerance, efficient movement Additional Treatment Details Home Living Obtained Home Living and PLOF info from: Patient Lives With: Alone Type of Home: House Home Layout: One level (laundry main floor. with 2 cats and 2 dogs.) Steps to enter home: Yes Rails to enter home: 1 rail Number of stairs to enter home: 2 Bathroom Shower/Tub: Walk-in shower Bathroom Toilet: Raised Bathroom Equipment: Grab bars in shower, Bulit-in shower seat, Hand-held showerhead, Grab bars around toilet Mobility Equipment: Cane ADL Equipment: Tableau Architect, Long handled shoe horn Prior Level of Function Level of [place] - Transfers/Ambulation/Mobility: Independent with functional transfers, Independent with household ambulation, Independent with community ambulation Level of [place] - ADLs: Independent Level of [place] - Homemaking: Independent Driving: Patient drives Vocational: Retired (RN) Leisure: pets For complete objective data, detailed plan of care and patient education refer to: PT Evaluation flowsheet, PT Evaluation and Treatment flowsheet, PT Treatment flowsheet, patient Plan of Care, Plan of Care progress note, and Patient Education. This note stands as the current Discharge Summary upon patient discharge from the hospital or completion of Physical Therapy Plan of Care. Communicated with Codie Yung, who reports patient/family request referral to [facility]. Referral(s) sent, awaiting follow-up. [facility] [place] [facility] DAILY PROGRESS NOTE ========MECHANISM: Fall DIAGNOSIS / REASON FOR CONSULT: Closed traumatic displaced fracture of shaft of right femur with routine healing Assessment & Plan S/p below procedure Vitamin D sufficient at 43 - pain control, therapies- WBAT - remove beltre - wean supplemental oxygen as tolerated Acute blood loss anemia Assessment & Plan Secondary to trauma, and surgical losses Aspirin and plavix resumed per ortho S/p 1 unit prbc 08/23 Hgb 8 (8.2); 11.8 pre-operatively Monitor * Fall Assessment & Plan UA with trace leukocytes Culture pending INCIDENTAL FINDINGS: RESOLVED PROBLEMS: SURGERIES/PROCEDURES: Date Operation/Procedure Provider Name 08/22 OPEN REDUCTION INTERNAL FIXATION FEMUR RIGHT Yasmine ========TODAY'S ASSESSMENT AND PLAN OF CARE: As above DISPOSITION - TBD ========CHIEF COMPLAINT/ HPI / PFSHx / EVENTS OVER LAST 24HRS: Resting in bed, no acute overnight events. Endorses right leg pain with activity. REVIEW OF SYSTEMS: Other than the above items the remainder of the complete ROS is otherwise unchanged from admission. PHYSICAL EXAM: Temp: [98.3 F (36.8 C)-99.4 F (37.4 C)] 98.7 F (37.1 C) Heart Rate: [83-101] 86 Resp: [16-20] 16 BP: (96-141)/(59-70) 130/66 GENERAL: Appears age appropriate. No acute distress. NEUROLOGICAL: Alert and oriented X 3. Follows commands with extremities x4, No focal neurologic deficits noted. GCS = 15 CARDIOVASCULAR: Regular rate and rhythm. No peripheral edema noted. 2+ pulses radial/DP/PT bilaterally. RESPIRATORY: Respiratory effort unlabored without use of accessory muscles. 2LNC ABDOMINAL: Rounded, soft, nontender, nondistended, No guarding or peritoneal signs. GENITOURINARY: Normal genitalia for age without lesion or trauma. MUSCULOSKELETAL: Extremities atraumatic without gross deformity x4. Dressing to right hip, edema noted, but still remains soft without deficits/paresthesias SKIN: Skin warm and dry. No rashes or lesions. Intake/Output Summary (Last 24 hours) at 08/24/2023 0628 Last data filed at 08/23/2023 2100 Gross per 24 hour Intake 1353.75 ml Output 350 ml Net 1003.75 ml IMAGING [briefly note any results pertinent to today's evaluation]: None new LABS Lab Results Component Value Date WBC 11.50 (H) 08/24/2023 HGB 8.0 (L) 08/24/2023 HCT 24.6 (L) 08/24/2023 MCV 96.5 08/24/2023 PLT 138 (L) 08/24/2023 RBC 2.55 (L) 08/24/2023 Lab Results Component Value Date GLUCOSE 121 (H) 08/24/2023 CALCIUM 7.6 (L) 08/24/2023 NA 142 08/24/2023 K 3.6 08/24/2023 CL 111 (H) 08/24/2023 BUN 11 08/24/2023 CREATININE 0.43 (L) 08/24/2023 No results found for: ALT , AST , GGT , ALKPHOS , BILITOT DAILY CHECKLIST: *Need for Restraints: no *Need for Urinary Catheter: yes, remove today *Need for Central Access Devices: no *Stress Ulcer Prophylaxis: protonix- home med *VTE Prophylaxis (Body mass index is 25 kg/m ., Estimated Creatinine Clearance: 73.7 mL/min (A) (by C-G formula based on SCr of 0.43 mg/dL (L)).): SCDs, aspirin and plavix *Home Medications Reconciled: yes *Code Status: DNR-CCA Associated attestation - Glynn Caal MD - 08/24/2023 4:29 PM EST Please link this note as an addendum to the Trauma Nurse Practitioner note with the same day of service. The patient was seen and examined by me, the attending trauma surgeon, on multidisciplinary rounds on the date of service listed above. I have reviewed the Trauma Nurse Practitioner note with the relevant labs, studies, and oracle ascp consultant notes. I have reviewed and agree with the documented history, exam, and plan of care, with the following comments, additions, and corrections. I have directed the care plan and am responsible for the majority of medical decision making for this patient during this encounter. Interval Changes: stable on rounds Temp: [98.6 F (37 C)-99.4 F (37.4 C)] 98.7 F (37.1 C) Heart Rate: [86-98] 86 Resp: [16-20] 16 BP: (127-152)/(61-78) 152/78 Exam: Neuro: GCS15, no focal deficits Chest: Clear sounds bilaterally Abdomen: soft, NT Intake/Output Summary (Last 24 hours) at 08/24/2023 1628 Last data filed at 08/24/2023 0910 Gross per 24 hour Intake 480 ml Output 1250 ml Net -770 ml Assessment and Plan: Fall with femur fracture Post ORIF Pain control DVT Prophylaxis Therapies Abla-monitor d/c planning Glynn Caal MD [facility] [place] PATIENT: Radha Baldwin DATE / TIME: 08/23/23 10:26 AM POS: Office AGE: 83 y.o. : 1940 RACE: [1] SEX: female PCP: No, Physician REFERRAL: No ref. provider found TOS: SUBJECTIVE: The patient is lying comfortably in bed with very minimal right thigh pain. She attempted physical therapy this morning but got lightheaded and mildly hypotensive. Hemoglobin this morning is 7.4 g/dL. Vitals are now stable. She is tolerating her diet. The patient tells me that she normally gives blood on a regular basis. She tells me that her usual hemoglobin is in the range of 13 g/dL. OBJECTIVE: BP 134/63 Pulse 96 Temp 98.3 F (36.8 C) (Oral) Resp 16 Ht 5' Wt 58.1 kg (128 lb) SpO2 98% BMI 25.00 kg/m Right thigh soft, sensation gross motor intact ASSESSMENT: POD #1 ORIF right periprosthetic femur fracture PLAN: 1. Transfuse 1 unit packed RBC 2. Diet as tolerated 3. Pain management 4. Therapies as tolerated ATTENDING PHYSICIAN LENO BECK MD PRIMARY CARE PHYSICIAN PHYSICIAN NO ADMITTING PHYSICIAN LENO BECK MD CONSULTING PHYSICIAN LENO BECK MD PROGRESS NOTE She is postoperative day #1 status post ORIF of her right periprosthetic femur fracture. At this point in time, the patient is awake, alert, and oriented x3. Vital signs are stable. She is afebrile. Wound is clean, dry, intact. No erythema. No drainage. No lymphangitis. No cellulitis. Negative Homans' sign. Vital signs are stable. She is afebrile. Her potassium is 3.3. Hemoglobin 7.4. She typically is maintained on Plavix and baby aspirin for her history of TIA and strokes. We will continue the aspirin as well as the Plavix. Postoperative a transfusion may be required. However, the risk of discontinuation of the anticoagulation far outweighs the benefits of stroke and heart attack prevention. Further recommendations to follow. D 08/23/2023 09:04 [id number] 08/23/2023 09:47 MCB/MODL Spiritual Care Progress Note Completed by: Diana Qureshi Person(s) Present During this Visit: Cousin Time Spent in Direct Patient Care: 45 Narrative: Conference Services Manager responded to Level 2 Trauma. Medical staff attending to patient upon arrival. A family member arrived to provide support until pt's son gets here. Conference Services Manager provided listening support to family member until she could be united with pt. The Pastoral Care Team will remain available to support patient and family PRN. Patients Response to Pastoral Care: Other (see comment) (Pt being medicall assessed) Planning for Future Visits: PRN Diana Qureshi MDiv Staff Conference Services Manager Pastoral Care Department [facility] [phone] on-call [phone] office 08/21/23 1430 Visit Background Visit With Cousin Visit By Staff Conference Services Manager Visit Progression Introduction Visit Requested By Conference Services Manager Referral Visit Source Overhead Page Visit Type Crisis Visit Visit Circumstances and Events Trauma 2 Visit Length (minutes) 45 Patient's Response to Pastoral Care Other (see comment) (Pt being medicall assessed) Visit Planning PRN Spiritual Assessment Not assessed during visit Muslim Assessment Not assessed during this visit Family assessment provided? Not assessed during this visit documented in this encounter [facility] 08-28-2023 Hospital course Narrative DISCHARGE SUMMARY Patient: Radha Baldwin Date of : 1940 Site: [facility] Family Provider: Jena Physician Admit Date: 08/21/2023 Discharge Date/Time: 08/28/2023 Disposition: [facility] swing bed. Clinical Summary Hospital Course: Radha Baldwin is a 83 y.o. female patient of [facility] Physician with a history of CVA on aspirin and plavix who presented to the ED on 08/21/2023 after a ground level fall. She sustained a right femur fracture and underwent an ORIF on 08/22/[address] Luu. She progressed well with therapy post-operatively and is being discharged today. She will follow up with Dr. Luu. Discharge Diagnoses: Closed traumatic displaced fracture of shaft of right femur with routine healing Assessment & Plan S/p fixation 08/22. Vitamin D sufficient at 43 - WBAT. - f/u with orthopedics as outpatient. - no lovenox per orthopedisc ASA plavix Surgeries: 08/22/23 OPEN REDUCTION INTERNAL FIXATION FEMUR RIGHT Consults: Procedures Inpatient consult to Trauma Surgery Inpatient consult to Orthopedic Surgery Hospitalize Patient To : Inpatient consult to Care Management Inpatient Consult to Osteoporosis Management Inpatient consult to IV Team Allergies: Codeine, Fentanyl, and Penicillins Discharge Diet: Resume home diet Regular Condition: Good Discharge Medications: Discharge Medications New Medications Details acetaminophen 325 MG tablet Commonly known as: TYLENOL Replaces: Tylenol Arthritis Pain 650 MG CR tablet Take 2 (two) tablets (650 mg total) by mouth every 4 (four) hours as needed . Quantity: 30 tablet methocarbamoL 500 MG tablet Commonly known as: ROBAXIN Take 1 (one) tablet (500 mg total) by mouth 3 (three) times a day as needed for muscle spasms . Quantity: 30 tablet polyethylene glycol 17 gram powder Commonly known as: MIRALAX Start taking on: August 29, 2023 Take 17 (seventeen) g by mouth daily for 7 days Start: 08/29/23. Quantity: 7 packet Medications To Continue Details ascorbic acid with marcell hips 500 MG tablet Generic drug: ascorbic acid (vitamin C) Take 1 (one) tablet (500 mg total) by mouth 2 (two) times a day . aspirin 81 MG EC tablet Take 1 (one) tablet (81 mg total) by mouth daily . BIOTIN ORAL Take 1 capsule by mouth daily . cholecalciferol (vitamin D3) 25 mcg (1,000 unit) capsule Take 1 (one) capsule (1,000 Units total) by mouth 2 (two) times a day . clopidogreL 75 mg tablet Commonly known as: PLAVIX Take 1 (one) tablet (75 mg total) by mouth daily . DULoxetine 20 MG capsule Commonly known as: CYMBALTA Take 1 (one) capsule (20 mg total) by mouth daily . fluticasone propionate 50 mcg/actuation nasal spray Commonly known as: FLONASE Instill 1 (one) spray into each nostril daily as needed for allergies . nitroGLYCERIN 0.4 MG SL tablet Commonly known as: NITROSTAT Place 1 (one) tablet (0.4 mg total) under the tongue every 5 (five) minutes as needed for chest pain . pantoprazole 40 MG tablet Commonly known as: PROTONIX Take 1 (one) tablet (40 mg total) by mouth 2 (two) times a day . rosuvastatin 5 MG tablet Commonly known as: CRESTOR Take 1 (one) tablet (5 mg total) by mouth every night at bedtime . scopolamine 1 mg over 3 days patch Commonly known as: TRANSDERM-SCOP Place 1.5 patches on the skin every 72 hours As needed for travel . senna-docusate 8.6-50 mg Commonly known as: SENNA-S Take 1 (one) tablet by mouth daily . sucralfate 1 gram tablet Commonly known as: CARAFATE Take 1 (one) tablet (1 g total) by mouth 4 (four) times a day . vitamin E 400 UNIT capsule Take 1 (one) capsule (400 Units total) by mouth 2 (two) times a day . Stopped Medications Tylenol Arthritis Pain 650 MG CR tablet Generic drug: acetaminophen Replaced by: acetaminophen 325 MG tablet Physician(s) Family Provider: No, Physician, Phone: None Address: [facility] Follow Up: Crissy Luu MD [address] [place] [id number] Follow up in 2 week(s) Primary Care Physician Follow up Additional Information: GENERAL: Appears age appropriate. No acute distress. NEUROLOGICAL: Alert and oriented X 3. Follows commands with extremities x4, GCS = 15 CARDIOVASCULAR: No peripheral edema noted. 2+ pulses radial/DP/PT bilaterally. RESPIRATORY: Respiratory effort unlabored without use of accessory muscles. RA ABDOMINAL: Rounded, soft, nontender, nondistended, active bowel sounds. No guarding or peritoneal signs. GENITOURINARY: voiding MUSCULOSKELETAL: Extremities atraumatic without gross deformity x4. Dressing to right hip CDI surrounding area slightly erythematous SKIN: Skin warm and dry. Patient instructions, including activity, were given to the patient/family at discharge. Please see the After Visit Summary in the electronic medical record for details. Time spent on discharge: < 30 minutes Completed by: Annie Her CNP on 08/28/23, 11:34 AM Associated attestation - Leno Beck MD - 08/28/2023 11:36 AM EST Name: Radha Baldwin Admit Date and Time: 08/21/2023 2:29 PM Date of Service: 08/28/23 Please link this note as an addendum to the MELISA note with the same day of service. The patient was seen and examined by me, the attending trauma surgeon, on multidisciplinary rounds on the date of service listed above. I have reviewed the MELISA note, labs, studies, and oracle ascp consultant notes. I have reviewed and agree with the documented history, exam, and plan of care, with the following additions and corrections: Stable for discharge. Please see progress note from same date. Deric Beck MD, FACS, DABS, DABA Trauma, Acute Care Surgery, Surgical Critical Care, and Neurocritical Care documented in this encounter [facility] 08-28-2023 Hospital Discharge instructions Annie Her CNP - 08/28/2023 10:32 AM EST ORTHOPEDIC TRAUMA (BONE INJURIES) Weight bearing instructions: weight bearing as tolerated Wound Care: Keep the dressing clean, dry, and in place until instructed to remove by the orthopedic team Wash your hands before and after touching the dressing. Keep your incision dry until follow-up visit. Sutures and/or rupesh will be removed at your follow up appointment. Call the Orthopedic Surgeon office if you develop: Persistent or heavy bleeding from your wound/incision A fever greater than 101 F Redness or drainage at the surgery site Unexpected swelling, numbness, tingling or discoloration of extremities Severe pain that is not relieved by your pain medicine, ice, and rest Follow-up Care: A follow-up appointment should be scheduled for you at discharge. Keep this follow up appointment documented in this encounter [facility] 08-28-2023 Note Formatting of this n ote might be different from the original. Problem: Actual or potential alteration in health Goal: Absence of healthcare acquired conditions Outcome: Partially Met Goal: Knowledge of Interdisciplinary Plan of Care Outcome: Partially Met Goal: Knowledge of Enviroment Outcome: Partially Met Problem: Pain Goal: Manage acute pain Outcome: Partially Met Goal: Manage chronic pain Outcome: Partially Met Goal: Reduced pain sensation Outcome: Partially Met Goal: Achievement of comfort function goal Outcome: Partially Met Problem: Pain Goal: Manage acute pain Outcome: Partially Met Goal: Manage chronic pain Outcome: Partially Met Goal: Reduced pain sensation Outcome: Partially Met Goal: Achievement of comfort function goal Outcome: Partially Met Problem: Pressure Ulcer - Risk of Goal: Absence of pressure ulcer Outcome: Partially Met Problem: Falls, Risk of Goal: Absence of falls Outcome: Partially Met [facility] 08-27-2023 Note Formatting of this n ote might be different from the original. PHYSICAL THERAPY VISIT VARIANCE NOTE Attempted to see patient at this time, but unable secondary to: Patient Unavailable (pt being seen by RESEARCH FELLOW). Will follow up as appropriate. [facility] 08-27-2023 Note Formatting of this n ote might be different from the original. Problem: Actual or potential alteration in health Goal: Absence of healthcare acquired conditions Outcome: Partially Met Problem: Actual or potential alteration in health Goal: Knowledge of Interdisciplinary Plan of Care Outcome: Partially Met Problem: Pain Goal: Manage acute pain Outcome: Partially Met Problem: Pain Goal: Manage acute pain Outcome: Partially Met [facility] 08-26-2023 Note Formatting of this n ote might be different from the original. Problem: Actual or potential alteration in health Goal: Absence of healthcare acquired conditions Outcome: Partially Met Goal: Knowledge of Interdisciplinary Plan of Care Outcome: Partially Met Goal: Knowledge of Enviroment Outcome: Partially Met Problem: Pain Goal: Manage acute pain Outcome: Partially Met Goal: Manage chronic pain Outcome: Partially Met Goal: Reduced pain sensation Outcome: Partially Met Goal: Achievement of comfort function goal Outcome: Partially Met Problem: Pain Goal: Manage acute pain Outcome: Partially Met Goal: Manage chronic pain Outcome: Partially Met Goal: Reduced pain sensation Outcome: Partially Met Goal: Achievement of comfort function goal Outcome: Partially Met Problem: Pressure Ulcer - Risk of Goal: Absence of pressure ulcer Outcome: Partially Met Problem: Falls, Risk of Goal: Absence of falls Outcome: Partially Met [facility] 08-24-2023 Note Formatting of this n ote might be different from the original. Problem: Actual or potential alteration in health Goal: Absence of healthcare acquired conditions Outcome: Partially Met Goal: Knowledge of Interdisciplinary Plan of Care Outcome: Partially Met Goal: Knowledge of Enviroment Outcome: Partially Met Problem: Pain Goal: Manage acute pain Outcome: Partially Met Goal: Manage chronic pain Outcome: Partially Met Goal: Reduced pain sensation Outcome: Partially Met Goal: Achievement of comfort function goal Outcome: Partially Met Problem: Pain Goal: Manage acute pain Outcome: Partially Met Goal: Manage chronic pain Outcome: Partially Met Goal: Reduced pain sensation Outcome: Partially Met Goal: Achievement of comfort function goal Outcome: Partially Met Problem: Pressure Ulcer - Risk of Goal: Absence of pressure ulcer Outcome: Partially Met Problem: Falls, Risk of Goal: Absence of falls Outcome: Partially Met [facility] 08-24-2023 Consult note Associated Order (s): IP CONSULT TO CARE MANAGEMENT Care Management Consult Note Date: 08/24/2023 Time: 3:25 PM Patient Name: Radha Baldwin Date of : 1940 Reason for Consult: Discharge Needs Discharge Plan: To be determined Discharging Transportation Plan: To be determined Discharge Plan Status: CM consulted for discharge planning. Spoke with pt at the beside and educated on role of CM and discussed discharge planning. Pt wanting to go to a SNF for rehab, pt had a fall at home and fractured her right hip. Pt gave only one choice for [facility] in [place] CME notified. Pt states she does not want to go to [place]. CM will continue to follow. Pt has Medicare part A & B insurance. Assessment and Background Information: Pt states she lives alone in a 1 story with 2 steps to get into the home but states she has a railing to use. Pt states prior to this fall she was independent with all ADLs. Pt stated she tripped over a dog gate. Pt stated some issues with cooking, pt states she does not like to cook , discussed getting delivered meals but pt declined at this time. Pt denies issues with financial/food/medication insecurities. Living Arrangements: Alone Support Systems: Friends/neighbors Assistance Needed: some Type of Residence: Private residence Prior to Admission Home Care Services: No Current Home Equipment: Cane, Tub/Shower chair Holistic Assessment Medication adherence problem:: No History of falls in last 6 months:: (!) Yes Family aware of the patient's advance care planning wishes:: Yes Do you have any cultural/spiritual connections or beliefs that would impact how we deliver your care?: No Chronic pain:: (!) Yes Location of chronic pain:: Osteoarthritis all over and knee pain Chronic pain timing:: Constant Chronic pain severity:: 2 Limitation of routine activities due to chronic pain:: Yes [facility] 08-24-2023 Consult note Associated Order (s): IP CONSULT TO CARE MANAGEMENT Care Management Consult Note Date: 08/24/2023 Time: 3:25 PM Patient Name: Radha Baldwin Date of : 1940 Reason for Consult: Discharge Needs Discharge Plan: To be determined Discharging Transportation Plan: To be determined Discharge Plan Status: CM consulted for discharge planning. Spoke with pt at the beside and educated on role of CM and discussed discharge planning. Pt wanting to go to a SNF for rehab, pt had a fall at home and fractured her right hip. Pt gave only one choice for [facility] in [place] CME notified. Pt states she does not want to go to [place]. CM will continue to follow. Pt has Medicare part A & B insurance. Assessment and Background Information: Pt states she lives alone in a 1 story with 2 steps to get into the home but states she has a railing to use. Pt states prior to this fall she was independent with all ADLs. Pt stated she tripped over a dog gate. Pt stated some issues with cooking, pt states she does not like to cook , discussed getting delivered meals but pt declined at this time. Pt denies issues with financial/food/medication insecurities. Living Arrangements: Alone Support Systems: Friends/neighbors Assistance Needed: some Type of Residence: Private residence Prior to Admission Home Care Services: No Current Home Equipment: Cane, Tub/Shower chair Holistic Assessment Medication adherence problem:: No History of falls in last 6 months:: (!) Yes Family aware of the patient's advance care planning wishes:: Yes Do you have any cultural/spiritual connections or beliefs that would impact how we deliver your care?: No Chronic pain:: (!) Yes Location of chronic pain:: Osteoarthritis all over and knee pain Chronic pain timing:: Constant Chronic pain severity:: 2 Limitation of routine activities due to chronic pain:: Yes Occupational Therapy OCCUPATIONAL THERAPY EVALUATION S/P ORIF R femur on 08/22/23 secondary to periprosthetic femur fx; WBAT Fall Skilled Therapy Needs After Discharge Anticipate Resolution of Current Assessment Limitations Including: Pain, Mechanical Barriers Are Skilled Therapy Services Needed After Discharge: Yes Intensity of Skilled Therapy: 5 to 7 days per week Anticipated Duration of Skilled Therapy: Duration 7 - 10 days DME Recommendation: To be determined at next level of care Rehab Potential: Excellent, For goals Outcomes Measures Prior Function Daily Activity Raw Score: 24 Prior Function Daily Activity % Impaired: 0% AM-PAC Daily Activity Raw Score: 15 AM-PAC Daily Activity % Impaired: 56.46% Occupational Therapy Assessment The patient's current functional participation deficits are LE dressing, bathing, toileting, home management, hobbies, functional mobility, driving. This reduced independence will limit their life roles of premorbid level individual. The patient's co morbidities do affect patient performance in the above activities and roles. The performance deficits are a result of musculoskeletal impairment(s) in right, lower extremity including strength, balance, acitvity tolerance, pain, problem solving, sequencing, insight, safety, and knowledge deficit. The patient's home setup is a textbook associate for return to prior level of function. The patient's education level is a textbook associate, compliance is a textbook associate, awareness of own capacity and performance is a textbook associate to return to prior level of function. During the assessment, minimal to moderate modification of task was required and several treatment options were identified in the plan of care. This consultation required expanded review of the medical and therapy history. Activity Tolerance Activity Tolerance: Tolerates 10 - 20 min activity with multiple rests Therapy Precautions Weight Bearing Status: X RLE: Wt bearing as tolerated General Rehab Precautions: Fall risk Cognition Overall Cognitive Status: Within Functional Limits Arousal/Alertness: Appropriate responses to stimuli Orientation Level: Oriented X4 Executive functioning: Insight, Min impairment Safety Judgment: Decreased awareness of need for safety Problem Solving: Assistance required to identify errors made Attention: Attends to quiet environment Hearing Status: WFL Social Interaction: WFL, Appropriate, Cooperative ADL Feeding: Modified independent Grooming: (Declined; CR - SBA seated) Lower Body Dressing: Dependent (Unable to access feet seated at EOB.) Toileting: Dependent (Beltre) Functional Mobility: (Not safe to attempt d/t drop in BP at EOB.) UE Function Right dominant B UE AROM WFL B UE strength grossly 4+ to 5/5 throughout Able to oppose all digits to thumbs Bed Mobility Supine to Sit: Maximal assist, 2 person assist, Head of bed elevated Sit to Supine: Dependent, 2 person assist, Head of bed flat Hospice Registered Nurse: patient slide sheet / friction-reducing device Functional Transfers Sit to Stand: (not attempted at this time d/t drop in BP at EOB and report of feeling sweaty ) Additional Assessment Details Once at EOB, reported slight dizziness; BP 106/59. After seated at EOB several minutes, reports feeling sweaty ; BP 90/47 and was returned to supine. After several minutes supine, BP 131/63. Nursing informed of all. Totay's H&H 7.4 & 11.8. Home Living Obtained Home Living and PLOF info from: Patient Lives With: Alone Type of Home: House Home Layout: One level (laundry main floor. with 2 cats and 2 dogs.) Steps to enter home: Yes Rails to enter home: 1 rail Number of stairs to enter home: 2 Bathroom Shower/Tub: Walk-in shower Bathroom Toilet: Raised Bathroom Equipment: Grab bars in shower, Bulit-in shower seat, Hand-held showerhead, Grab bars around toilet Mobility Equipment: Cane ADL Equipment: Tableau Architect, Long handled shoe horn Prior Level of Function Level of [place] - Transfers/Ambulation/Mobility: Independent with functional transfers, Independent with household ambulation, Independent with community ambulation Level of [place] - ADLs: Independent Level of [place] - Homemaking: Independent Driving: Patient drives Vocational: Retired (RN) Leisure: pets Past Medical History: Diagnosis Date CVA (cerebral vascular accident) (HCC) Hyperlipidemia Past Surgical History: Procedure Laterality Date right hip replacement For complete objective data, detailed plan of care and patient education refer to: OT Evaluation flowsheet, OT Evaluation and Treatment flowsheet, OT Treatment flowsheet, patient Plan of Care, Plan of Care progress note, and Patient Education. This note stands as the current Discharge Summary upon patient discharge from the hospital or completion of Occupational Therapy Plan of Care. Physical Therapy PHYSICAL THERAPY EVALUATION Skilled Therapy Needs After Discharge Anticipate Resolution of Current Assessment Limitations Including: Pain, Mechanical Barriers, Social Support Are Skilled Therapy Services Needed After Discharge: Yes Intensity of Skilled Therapy: 5 to 7 days per week DME Recommendation: Wheeled Walker (bed transfer assist bar) DME Rationale: Patient's condition prevents him/her from accomplishing ADL without recommended equipment, Patient's condition creates an increased risk of safety hazard without recommended equipment, Equipment required to maintain weight bearing status per physician orders, Unreasonable time frame to complete ADL without recommended equipment, Patient will require increased level of care without recommended equipment Rehab Potential: Good, For goals Outcomes Measures AM-PAC Basic Mobility Raw Score: 7 Points AM-PAC Basic Mobility % Impaired: 93.19% Physical Therapy Assessment History: ORIF of her right periprosthetic femur fracture. The following factors influence the patient's participation in the PT plan of care: Personal Factors: Age, Social Barriers, Apprehensive Toward Mobility, Body Habitus Environmental Factors: Steps to enter home, Lives alone, Family unavailable to assist, Lack of transportation The following co-morbidities (from this admission or prior) influence the patient's participation in this plan of care: see PMH Number of History elements affecting this patient's PT plan of care: 3 or more Examination of Body Systems: The patient presents with: Musculoskeletal impairments: Strength, ROM, Pain, Functional Endurance Neurologic Impairments: Balance, Pain Cardiopulmonary Impairments: Blood Pressure Regulation with Activity. These impairments result in limitations of Gait, Functional Transfers, Stair-Climbing, Safety, Safety Awareness, Wheelchair Mobility, Activity Tolerance, Insight. These impairments result in restrictions of Household mobility, Community mobility, Leisure activities. Number of Body Systems elements affecting this patient's PT plan of care: 3 or more. Clinical Presentation: The patient's clinical presentation for this PT evaluation is evolving with changing characteristics as evidenced by current PT documentation. Activity Tolerance Activity Tolerance: Tolerates 10 - 20 min activity with multiple rests Therapy Precautions Orthotic Devices: No Weight Bearing Status: X RLE: Wt bearing as tolerated General Rehab Precautions: Fall risk (oxygen NC 2 liters) Balance Assessment Sitting Balance - Static: Contact guard assist, Minimal assist Sitting Balance - Dynamic: Minimal assist Standing Balance - Static: (unable) Standing Balance - Dynamic: (unable) Bed Mobility Rolling: Maximal assist, Head of bed flat Supine to Sit: Maximal assist, 2 person assist, Head of bed flat Sit to Supine: Dependent, 2 person assist, Head of bed flat Hospice Registered Nurse: bedrails, patient slide sheet / friction-reducing device Transfers Sit to Stand: (unable to stand due to medical status and low BP and lower H&H) Gait/Locomotion Gait Assistance: (unable due to medical issues with low BP and H&H) Additional Assessment Details Pt when sitting at EOB c/o dizziness at 106/59. She was at EOB for approx 5 minutes and started to feel sweaty with BP being 90/47. Pt getting very dizzy and laying down. After laying down for 5 minutes, BP was 131/63. Pt also stated that she felt very nauseated and needed to eat. Home Living Obtained Home Living and PLOF info from: Patient Lives With: Alone Type of Home: House Home Layout: One level (laundry main floor. with 2 cats and 2 dogs.) Steps to enter home: Yes Rails to enter home: 1 rail Number of stairs to enter home: 2 Bathroom Shower/Tub: Walk-in shower Bathroom Toilet: Raised Bathroom Equipment: Grab bars in shower, Hand-held showerhead, Bulit-in shower seat Mobility Equipment: Cane ADL Equipment: Tableau Architect, Long handled shoe horn Prior Level of Function Level of [place] - Transfers/Ambulation/Mobility: Independent with functional transfers, Independent with household ambulation, Independent with community ambulation Level of [place] - ADLs: Independent Level of [place] - Homemaking: Independent Driving: Patient drives Vocational: Retired (RN) Leisure: has her animals Past Medical History: Diagnosis Date CVA (cerebral vascular accident) (HCC) Hyperlipidemia Past Surgical History: Procedure Laterality Date right hip replacement For complete objective data, detailed plan of care and patient education refer to: PT Evaluation flowsheet, PT Evaluation and Treatment flowsheet, PT Treatment flowsheet, patient Plan of Care, Plan of Care progress note, and Patient Education. This note stands as the current Discharge Summary upon patient discharge from the hospital or completion of Physical Therapy Plan. ATTENDING PHYSICIAN LENO BECK MD PRIMARY CARE PHYSICIAN PHYSICIAN NO ADMITTING PHYSICIAN LENO BECK MD CONSULTING PHYSICIAN LENO BECK MD Orthopedic Consultation Dee is an 83-year-old patient who had a right total hip replacement performed 8 years ago in [place], [place]. The patient had a mechanical fall yesterday and sustained a right femur fracture distal to the tip of a total hip replacement. The patient has had a history of a CVA and TIA, and is on Plavix and baby aspirin. PAST MEDICAL HISTORY History of a stroke, history of stomach reflux, right thalamic stroke, irritable bowel syndrome, osteoporosis. MEDICATIONS Include Protonix, Effexor, Lipitor, Plavix, Flonase, Antivert, biotin, docusate, baby aspirin, vitamin D, vitamin C, Tylenol, Carafate. SURGERIES She has had right total hip replacement. She has had colonoscopy, EGDs. REVIEW OF SYSTEMS A history of a right hip pain, right leg pain, depression, vitamin D deficiency. X-ray examination reveals the femur fracture distal to the femoral stem. PHYSICAL EXAMINATION General: The patient is awake, alert, oriented x3. Extremities: She is in traction in a protective splint. Grossly neurologically intact with 2+ pulses. Her right thigh and quadriceps were swollen with no signs of compartment syndrome. Upper extremities atraumatic. Left lower extremity atraumatic. IMAGING X-rays of the right hip shows a normal appearing right hip replacement. X-ray of the right femur shows the femur fracture distal to the tip of the femoral stem. IMPRESSION 1.History of a stroke on Plavix and aspirin. 2.Femur fracture right femur. PLAN At this point in time, this is a stable stem. The fracture is distal to the tip of the stem. We have good cortices distal to the stem, as well as the ability to do inner fragmentary fixation. We will preserve the femoral component of the hip replacement with open reduction internal fixation. I explained to her that with her Plavix and aspirin use the potential of blood loss that could result in a transfusion. The patient understands all these risks and complications. Her morning hemoglobin is 11.8. Further recommendations to follow. All risks, complications were discussed. She is in agreement with right femur ORIF. D 08/22/2023 09:36 [id number] 08/22/2023 10:15 MCB/MODL documented in this encounter [facility] 08-24-2023 Note Formatting of this n ote might be different from the original. Problem: Actual or potential alteration in health Goal: Absence of healthcare acquired conditions Outcome: Partially Met Goal: Knowledge of Interdisciplinary Plan of Care Outcome: Partially Met Goal: Knowledge of Enviroment Outcome: Partially Met Problem: Pain Goal: Manage acute pain Outcome: Partially Met Goal: Manage chronic pain Outcome: Partially Met Goal: Reduced pain sensation Outcome: Partially Met Goal: Achievement of comfort function goal Outcome: Partially Met Problem: Pain Goal: Manage acute pain Outcome: Partially Met Goal: Manage chronic pain Outcome: Partially Met Goal: Reduced pain sensation Outcome: Partially Met Goal: Achievement of comfort function goal Outcome: Partially Met Problem: Pressure Ulcer - Risk of Goal: Absence of pressure ulcer Outcome: Partially Met Problem: Falls, Risk of Goal: Absence of falls Outcome: Partially Met [facility] 08-23-2023 Evaluation + Plan note Associated Problem(s): Acute blood loss anemia S/p 1 unit prbc Hgb ___ (8.2) [facility] 08-23-2023 Consult note Formatting of th is note is different from the original. Occupational Therapy OCCUPATIONAL THERAPY EVALUATION S/P ORIF R femur on 08/22/23 secondary to periprosthetic femur fx; WBAT Fall Skilled Therapy Needs After Discharge Anticipate Resolution of Current Assessment Limitations Including: Pain, Mechanical Barriers Are Skilled Therapy Services Needed After Discharge: Yes Intensity of Skilled Therapy: 5 to 7 days per week Anticipated Duration of Skilled Therapy: Duration 7 - 10 days DME Recommendation: To be determined at next level of care Rehab Potential: Excellent, For goals Outcomes Measures Prior Function Daily Activity Raw Score: 24 Prior Function Daily Activity % Impaired: 0% AM-PAC Daily Activity Raw Score: 15 AM-PAC Daily Activity % Impaired: 56.46% Occupational Therapy Assessment The patient's current functional participation deficits are LE dressing, bathing, toileting, home management, hobbies, functional mobility, driving. This reduced independence will limit their life roles of premorbid level individual. The patient's co morbidities do affect patient performance in the above activities and roles. The performance deficits are a result of musculoskeletal impairment(s) in right, lower extremity including strength, balance, acitvity tolerance, pain, problem solving, sequencing, insight, safety, and knowledge deficit. The patient's home setup is a textbook associate for return to prior level of function. The patient's education level is a textbook associate, compliance is a textbook associate, awareness of own capacity and performance is a textbook associate to return to prior level of function. During the assessment, minimal to moderate modification of task was required and several treatment options were identified in the plan of care. This consultation required expanded review of the medical and therapy history. Activity Tolerance Activity Tolerance: Tolerates 10 - 20 min activity with multiple rests Therapy Precautions Weight Bearing Status: X RLE: Wt bearing as tolerated General Rehab Precautions: Fall risk Cognition Overall Cognitive Status: Within Functional Limits Arousal/Alertness: Appropriate responses to stimuli Orientation Level: Oriented X4 Executive functioning: Insight, Min impairment Safety Judgment: Decreased awareness of need for safety Problem Solving: Assistance required to identify errors made Attention: Attends to quiet environment Hearing Status: WFL Social Interaction: WFL, Appropriate, Cooperative ADL Feeding: Modified independent Grooming: (Declined; CR - SBA seated) Lower Body Dressing: Dependent (Unable to access feet seated at EOB.) Toileting: Dependent (Beltre) Functional Mobility: (Not safe to attempt d/t drop in BP at EOB.) UE Function Right dominant B UE AROM WFL B UE strength grossly 4+ to 5/5 throughout Able to oppose all digits to thumbs Bed Mobility Supine to Sit: Maximal assist, 2 person assist, Head of bed elevated Sit to Supine: Dependent, 2 person assist, Head of bed flat Hospice Registered Nurse: patient slide sheet / friction-reducing device Functional Transfers Sit to Stand: (not attempted at this time d/t drop in BP at EOB and report of feeling sweaty ) Additional Assessment Details Once at EOB, reported slight dizziness; BP 106/59. After seated at EOB several minutes, reports feeling sweaty ; BP 90/47 and was returned to supine. After several minutes supine, BP 131/63. Nursing informed of all. Totay's H&H 7.4 & 11.8. Home Living Obtained Home Living and PLOF info from: Patient Lives With: Alone Type of Home: House Home Layout: One level (laundry main floor. with 2 cats and 2 dogs.) Steps to enter home: Yes Rails to enter home: 1 rail Number of stairs to enter home: 2 Bathroom Shower/Tub: Walk-in shower Bathroom Toilet: Raised Bathroom Equipment: Grab bars in shower, Bulit-in shower seat, Hand-held showerhead, Grab bars around toilet Mobility Equipment: Cane ADL Equipment: Tableau Architect, Long handled shoe horn Prior Level of Function Level of [place] - Transfers/Ambulation/Mobility: Independent with functional transfers, Independent with household ambulation, Independent with community ambulation Level of [place] - ADLs: Independent Level of [place] - Homemaking: Independent Driving: Patient drives Vocational: Retired (RN) Leisure: pets Past Medical History: Diagnosis Date CVA (cerebral vascular accident) (HCC) Hyperlipidemia Past Surgical History: Procedure Laterality Date right hip replacement For complete objective data, detailed plan of care and patient education refer to: OT Evaluation flowsheet, OT Evaluation and Treatment flowsheet, OT Treatment flowsheet, patient Plan of Care, Plan of Care progress note, and Patient Education. This note stands as the current Discharge Summary upon patient discharge from the hospital or completion of Occupational Therapy Plan of Care. [facility] 08-23-2023 Consult note Formatting of th is note is different from the original. Physical Therapy PHYSICAL THERAPY EVALUATION Skilled Therapy Needs After Discharge Anticipate Resolution of Current Assessment Limitations Including: Pain, Mechanical Barriers, Social Support Are Skilled Therapy Services Needed After Discharge: Yes Intensity of Skilled Therapy: 5 to 7 days per week DME Recommendation: Wheeled Walker (bed transfer assist bar) DME Rationale: Patient's condition prevents him/her from accomplishing ADL without recommended equipment, Patient's condition creates an increased risk of safety hazard without recommended equipment, Equipment required to maintain weight bearing status per physician orders, Unreasonable time frame to complete ADL without recommended equipment, Patient will require increased level of care without recommended equipment Rehab Potential: Good, For goals Outcomes Measures AM-PAC Basic Mobility Raw Score: 7 Points AM-PAC Basic Mobility % Impaired: 93.19% Physical Therapy Assessment History: ORIF of her right periprosthetic femur fracture. The following factors influence the patient's participation in the PT plan of care: Personal Factors: Age, Social Barriers, Apprehensive Toward Mobility, Body Habitus Environmental Factors: Steps to enter home, Lives alone, Family unavailable to assist, Lack of transportation The following co-morbidities (from this admission or prior) influence the patient's participation in this plan of care: see PM Number of History elements affecting this patient's PT plan of care: 3 or more Examination of Body Systems: The patient presents with: Musculoskeletal impairments: Strength, ROM, Pain, Functional Endurance Neurologic Impairments: Balance, Pain Cardiopulmonary Impairments: Blood Pressure Regulation with Activity. These impairments result in limitations of Gait, Functional Transfers, Stair-Climbing, Safety, Safety Awareness, Wheelchair Mobility, Activity Tolerance, Insight. These impairments result in restrictions of Household mobility, Community mobility, Leisure activities. Number of Body Systems elements affecting this patient's PT plan of care: 3 or more. Clinical Presentation: The patient's clinical presentation for this PT evaluation is evolving with changing characteristics as evidenced by current PT documentation. Activity Tolerance Activity Tolerance: Tolerates 10 - 20 min activity with multiple rests Therapy Precautions Orthotic Devices: No Weight Bearing Status: X RLE: Wt bearing as tolerated General Rehab Precautions: Fall risk (oxygen NC 2 liters) Balance Assessment Sitting Balance - Static: Contact guard assist, Minimal assist Sitting Balance - Dynamic: Minimal assist Standing Balance - Static: (unable) Standing Balance - Dynamic: (unable) Bed Mobility Rolling: Maximal assist, Head of bed flat Supine to Sit: Maximal assist, 2 person assist, Head of bed flat Sit to Supine: Dependent, 2 person assist, Head of bed flat Hospice Registered Nurse: bedrails, patient slide sheet / friction-reducing device Transfers Sit to Stand: (unable to stand due to medical status and low BP and lower H&H) Gait/Locomotion Gait Assistance: (unable due to medical issues with low BP and H&H) Additional Assessment Details Pt when sitting at EOB c/o dizziness at 106/59. She was at EOB for approx 5 minutes and started to feel sweaty with BP being 90/47. Pt getting very dizzy and laying down. After laying down for 5 minutes, BP was 131/63. Pt also stated that she felt very nauseated and needed to eat. Home Living Obtained Home Living and PLOF info from: Patient Lives With: Alone Type of Home: House Home Layout: One level (laundry main floor. with 2 cats and 2 dogs.) Steps to enter home: Yes Rails to enter home: 1 rail Number of stairs to enter home: 2 Bathroom Shower/Tub: Walk-in shower Bathroom Toilet: Raised Bathroom Equipment: Grab bars in shower, Hand-held showerhead, Bulit-in shower seat Mobility Equipment: Cane ADL Equipment: Tableau Architect, Long handled shoe horn Prior Level of Function Level of [place] - Transfers/Ambulation/Mobility: Independent with functional transfers, Independent with household ambulation, Independent with community ambulation Level of [place] - ADLs: Independent Level of [place] - Homemaking: Independent Driving: Patient drives Vocational: Retired (RN) Leisure: has her animals Past Medical History: Diagnosis Date CVA (cerebral vascular accident) (HCC) Hyperlipidemia Past Surgical History: Procedure Laterality Date right hip replacement For complete objective data, detailed plan of care and patient education refer to: PT Evaluation flowsheet, PT Evaluation and Treatment flowsheet, PT Treatment flowsheet, patient Plan of Care, Plan of Care progress note, and Patient Education. This note stands as the current Discharge Summary upon patient discharge from the hospital or completion of Physical Therapy Plan. [facility] 08-23-2023 Note Formatting of this n ote might be different from the original. Problem: Actual or potential alteration in health Goal: Absence of healthcare acquired conditions Outcome: Partially Met Goal: Knowledge of Interdisciplinary Plan of Care Outcome: Partially Met Goal: Knowledge of Enviroment Outcome: Partially Met Problem: Pain Goal: Manage acute pain Outcome: Partially Met Goal: Manage chronic pain Outcome: Partially Met Goal: Reduced pain sensation Outcome: Partially Met Goal: Achievement of comfort function goal Outcome: Partially Met Problem: Pain Goal: Manage acute pain Outcome: Partially Met Goal: Manage chronic pain Outcome: Partially Met Goal: Reduced pain sensation Outcome: Partially Met Goal: Achievement of comfort function goal Outcome: Partially Met Problem: Pressure Ulcer - Risk of Goal: Absence of pressure ulcer Outcome: Partially Met Problem: Falls, Risk of Goal: Absence of falls Outcome: Partially Met [facility] 08-22-2023 Note Formatting of this n ote is different from the original. [facility] DAILY PROGRESS NOTE ========MECHANISM: Fall DIAGNOSIS / REASON FOR CONSULT: Closed traumatic displaced fracture of shaft of right femur with routine healing Assessment & Plan -S/p below procedure -pain control, will add Robaxin PRN for muscle spasms -AM labs including vitamin D, UA (p), pain medication adjustment as pt declines taking Oxycodone INCIDENTAL FINDINGS: RESOLVED PROBLEMS: SURGERIES/PROCEDURES: Date Operation/Procedure Provider Name 08/22 OPEN REDUCTION INTERNAL FIXATION FEMUR RIGHT Yasmine ========TODAY'S ASSESSMENT AND PLAN OF CARE: As above DISPOSITION - TBD ========CHIEF COMPLAINT/ HPI / PFSHx / EVENTS OVER LAST 24HRS: Had a discussion with the patient this afternoon. She tells me she wishes to be a DNR-CCA DNI, we talked about the meaning of this. The patient understands and would like this reflected in her chart. C/o of some muscle spasms. Offered muscle relaxer, declines at this time. No other complaints REVIEW OF SYSTEMS: Other than the above items the remainder of the complete ROS is otherwise unchanged from admission. PHYSICAL EXAM: Temp: [97.3 F (36.3 C)-99.6 F (37.6 C)] 97.3 F (36.3 C) Heart Rate: [77-105] 80 Resp: [13-36] 13 BP: (94-181)/(51-94) 135/64 GENERAL: Appears age appropriate. No acute distress. NEUROLOGICAL: Alert and oriented X 3. Follows commands with extremities x4, No focal neurologic deficits noted. GCS = 15 CARDIOVASCULAR: Regular rate and rhythm. No peripheral edema noted. 2+ pulses radial/DP/PT bilaterally. RESPIRATORY: Respiratory effort unlabored without use of accessory muscles. 2LNC ABDOMINAL: Rounded, soft, nontender, nondistended, No guarding or peritoneal signs. GENITOURINARY: Normal genitalia for age without lesion or trauma. MUSCULOSKELETAL: Extremities atraumatic without gross deformity x4. Dressing to right hip, with some edema noted in the compartment, but still remains soft without deficits/paresthesias SKIN: Skin warm and dry. No rashes or lesions. Intake/Output Summary (Last 24 hours) at 08/22/2023 1301 Last data filed at 08/22/2023 1043 Gross per 24 hour Intake 1120 ml Output 525 ml Net 595 ml IMAGING [briefly note any results pertinent to today's evaluation]: None new LABS Lab Results Component Value Date WBC 15.30 (H) 08/22/2023 HGB 11.8 (L) 08/22/2023 HCT 36.0 08/22/2023 MCV 98.1 08/22/2023 PLT 276 08/22/2023 RBC 3.67 (L) 08/22/2023 Lab Results Component Value Date GLUCOSE 147 (H) 08/22/2023 CALCIUM 9.0 08/22/2023 NA 140 08/22/2023 K 3.6 08/22/2023 CL 107 08/22/2023 BUN 23 08/22/2023 CREATININE 0.72 08/22/2023 No results found for: ALT , AST , GGT , ALKPHOS , BILITOT DAILY CHECKLIST: *Need for Restraints: no *Need for Urinary Catheter: yes, will dc tomorrow *Need for Central Access Devices: no *Stress Ulcer Prophylaxis: protonix- home med *VTE Prophylaxis (Body mass index is 25 kg/m ., Estimated Creatinine Clearance: 44 mL/min (by C-G formula based on SCr of 0.72 mg/dL).): foot pumps, will start in AM if labs stable *Home Medications Reconciled: yes *Code Status: DNR-CCA [facility] Work Phone: 08-22-2023 Note Formatting of this n ote is different from the original. Brief Post Operative Note Patient Name: Radha Baldwin : 1940 (83 y.o.) Date of Service: 08/22/2023 CSN: [id number] Procedure(s): OPEN REDUCTION INTERNAL FIXATION FEMUR RIGHT Pre-Operative Diagnoses: * Right femur fracture Post-Operative Diagnoses: * Same as Pre-Op Diagnosis Surgeon(s) and Role: * Crissy Luu MD - Primary Anesthesiologist: Javi Hsieh MD RESEARCH PHARMACIST: Patricia Mathias CRNA Coloring Checker: Frieda Padgett RN Management Retail Intern: Montserrat Taylor, TECHNOLOGIST Scrub Person: Lorena Xiong RN Devops: Amberly Zendejas Float: Julienne Bae RN; Kathleen Klein RN Operative findings: see op note Intra and immediate post-operative complications: none Type of anesthesia used: General Estimated blood loss: 200 mL Estimated urine output: 325 mL Specimen(s): * No specimens in log * Implant(s): Implant Name Type Inv. Item Serial No. Event Crew Technician Lot No. [id number] No. Used Action PLATE 4.5 X 206MM 11HL BROAD LCP - [id number] PLATE 4.5 X 206MM 11HL BROAD LCP [employer] LOAD #[id number] Right 1 Implanted SCREW 4.5 X 32MM CORTEX SELF-TAP - [id number] SCREW 4.5 X 32MM CORTEX SELF-TAP SYNTHES LT LOAD #[id number] Right 5 Implanted SCREW 4.5 X 34MM CORTEX SELF-TAP - [id number] SCREW 4.5 X 34MM CORTEX SELF-TAP [employer]ES LT LOAD #[id number] Right 3 Implanted SCREW 5 X 14MM LOCKING SELF-TAP T25 STRDRV REC - [id number] SCREW 5 X 14MM LOCKING SELF-TAP T25 STRDRV REC [employer]ES LT LOAD #[id number] Right 2 Implanted SCREW 5 X 10MM PERIPROSTHETIC LOCKING S-T STRDRV STERL - [id number] SCREW 5 X 10MM PERIPROSTHETIC LOCKING S-T STRDRV STERL SYNTHES LT [id number] Right 1 Implanted CABLE 1.7 X 750MM W/CRIMP STERL - [id number] CABLE 1.7 X 750MM W/CRIMP STERL SYNTHES LT [id number] Right 3 Implanted Drain(s): * No LDAs found * Wound(s): Wound 08/22/23 1 Surgical Wound Trochanter Right;Lateral;Proximal (Active) Wound Closure Sutures;Rupesh;Surgical Adhesive 08/21/23 0002 Crissy Luu MD 08/22/2023 11:15 AM [facility] 08-22-2023 Note Formatting of this n ote might be different from the original. ATTENDING PHYSICIAN LENO BECK MD PRIMARY CARE PHYSICIAN PHYSICIAN NO ADMITTING PHYSICIAN LENO BECK MD CONSULTING PHYSICIAN LENO BECK MD PREOPERATIVE DIAGNOSIS Right periprosthetic femur fracture. POSTOPERATIVE DIAGNOSIS Right periprosthetic femur fracture. PROCEDURE Open reduction and internal fixation of right femur fracture. ANESTHESIA General anesthetic. COMPLICATIONS No intraoperative complications. SPECIMENS None. ESTIMATED BLOOD LOSS 200 cc. HISTORY Radha is an 83-year-old patient with a history of a hip replacement performed roughly 8 years ago. The patient had a mechanical fall, sustained the femur fracture distal to the tip of the femoral stem. There was no evidence of loosening of the actual femoral stem. Acetabular component appeared to be intact. Femoral appeared to be well-seated, and at this time I informed the patient I did not have enough proximal femur fracture to do a retrograde femoral nailing and that we have to do open reduction and internal fixation. She understands this. She was explained all the risks and complications of surgery, including, but not limited to, the risk of infection, bleeding, neurologic or vascular injury, the possibility of deep venous thrombosis, pulmonary embolism, myocardial infarction, stroke, or even with surgery. Explained the possibilities of continued pain, stiffness, loss of range of motion, nonunion, malunion, hardware failure, as well as the increased risk and complications of blood loss with her history of aspirin and Plavix use secondary to her history of a stroke. The patient understands these risks and complications and consents for surgical intervention. PROCEDURE IN DETAIL Patient was met in the preoperative holding area, where the right femur was confirmed to be the appropriate site and marked by myself. Patient was taken to the operative suite, given preoperative Kefzol per protocol as well as a general anesthetic. Patient placed in the left lateral decubitus position. Right femur and right leg were sterilely prepped and draped using ChloraPrep solution. After sterilization of right leg, we did our final time-out to confirm that the right leg was the appropriate site that had been marked by myself. We then went ahead and proceeded forward with making our skin incision laterally, split the iliotibial band. We then elevated the vastus lateralis off the femur. Femur was anatomically reduced, held with an 11-hole Synthes locking plate. We were able to get 5 screws distal to the fracture, 2 screws distal to the tip of the stem in the proximal portion of the fracture with an interfragmentary screw. We were able to do cable body art technician proximal to that. Once I felt that I had stable anatomic fixation and was happy with the fixation, we saved fluoroscopy images. We then did 3 L of copious irrigation. Vancomycin powder was sprinkled over the contact surface areas of the plate laterally. We then closed the vastus lateralis. We then closed the iliotibial band with #2 Vicryl in a running fashion. 0 Vicryl, 2-0 Vicryl and skin rupesh were used on skin. The patient was placed with a sterile Mepilex dressing, extubated, and taken to PACU without intraoperative complication. D 08/22/2023 11:20 [id number] 08/22/2023 12:12 MCB/MODL [facility] 08-22-2023 Note Formatting of this n ote might be different from the original. OCCUPATIONAL THERAPY VISIT VARIANCE NOTE Attempted to see patient at this time, but unable secondary to: Awaiting Medical Clearance (comment) (Patient in OR at this time. Will follow-up post-operatively.). Will follow up as appropriate. [facility] 08-22-2023 Consult note Formatting of th is note might be different from the original. ATTENDING PHYSICIAN LENO BECK MD PRIMARY CARE PHYSICIAN PHYSICIAN NO ADMITTING PHYSICIAN LENO BECK MD CONSULTING PHYSICIAN LENO BECK MD Orthopedic Consultation Dee is an 83-year-old patient who had a right total hip replacement performed 8 years ago in [place], [place]. The patient had a mechanical fall yesterday and sustained a right femur fracture distal to the tip of a total hip replacement. The patient has had a history of a CVA and TIA, and is on Plavix and baby aspirin. PAST MEDICAL HISTORY History of a stroke, history of stomach reflux, right thalamic stroke, irritable bowel syndrome, osteoporosis. MEDICATIONS Include Protonix, Effexor, Lipitor, Plavix, Flonase, Antivert, biotin, docusate, baby aspirin, vitamin D, vitamin C, Tylenol, Carafate. SURGERIES She has had right total hip replacement. She has had colonoscopy, EGDs. REVIEW OF SYSTEMS A history of a right hip pain, right leg pain, depression, vitamin D deficiency. X-ray examination reveals the femur fracture distal to the femoral stem. PHYSICAL EXAMINATION General: The patient is awake, alert, oriented x3. Extremities: She is in traction in a protective splint. Grossly neurologically intact with 2+ pulses. Her right thigh and quadriceps were swollen with no signs of compartment syndrome. Upper extremities atraumatic. Left lower extremity atraumatic. IMAGING X-rays of the right hip shows a normal appearing right hip replacement. X-ray of the right femur shows the femur fracture distal to the tip of the femoral stem. IMPRESSION 1.History of a stroke on Plavix and aspirin. 2.Femur fracture right femur. PLAN At this point in time, this is a stable stem. The fracture is distal to the tip of the stem. We have good cortices distal to the stem, as well as the ability to do inner fragmentary fixation. We will preserve the femoral component of the hip replacement with open reduction internal fixation. I explained to her that with her Plavix and aspirin use the potential of blood loss that could result in a transfusion. The patient understands all these risks and complications. Her morning hemoglobin is 11.8. Further recommendations to follow. All risks, complications were discussed. She is in agreement with right femur ORIF. D 08/22/2023 09:36 [id number] 08/22/2023 10:15 MCB/MODL [facility] 08-22-2023 Attending History and physical note INTERVAL HISTORY AND PHYSICAL Patient Name: Radha Baldwin Admit Date: [id number] MR #: [id number] : 1940 The H&P has been reviewed and the patient has been examined. I concur with the findings of the H&P. There are no significant changes. It is appropriate to proceed with the planned procedure. Crissy Luu MD 08/22/2023 9:31 AM Source Note - Her Annie Martha, TALISHA - 08/21/2023 5:09 PM EST [facility] TRA[facility]MA EVALUATION / HISTORY AND PHYSICAL ======== Closed traumatic displaced fracture of shaft of right femur with routine healing Assessment & Plan Reduced and splinted. - pain control. - OR in Am with yasmine. - vitamin D. * Fall Assessment & Plan CT H/N (-). Admitted with these risk variables:None. Please see assessment and plan for further details. MECHANISM OF INJURY: LOC (yes/no?): no Anticoagulant / Anti-platelet Rx? (for what dx?): aspirin/plavix Notification Time: 1422 Arrival To Bedside: 142 Attending Arrival Time: 1438 CHIEF COMPLAINT: fall HISTORY OF PRESENT ILLNESS / INJURY (HPI): Ms. Baldwin is a 83-year-old female with a past medical history of CVA on aspirin plavix who sustained a ground level fall. She tripped over her rug and landed on her right leg. She denies LOC. Upon arrival to ED she was a GCS of 15, moving all extremities, endorsing pain to her right leg. She was NVI, HD stable. Will reduce and splint right leg. PAST MEDICAL HISTORY (PMH): Past Medical History: Diagnosis Date CVA (cerebral vascular accident) (HCC) No past surgical history on file. No family history on file. Last Tetanus: unknown MEDICATIONS: No current facility-administered medications on file prior to encounter. Current Outpatient Medications on File Prior to Encounter Medication Sig Dispense Refill acetaminophen (Tylenol Arthritis Pain) 650 MG CR tablet Take 2 (two) tablets (1,300 mg total) by mouth 2 (two) times a day . ascorbic acid, vitamin C, (ascorbic acid with marcell hips) 500 MG tablet Take 1 (one) tablet (500 mg total) by mouth 2 (two) times a day . aspirin 81 MG EC tablet Take 1 (one) tablet (81 mg total) by mouth daily . BIOTIN ORAL Take 1 capsule by mouth daily . cholecalciferol, vitamin D3, 25 mcg (1,000 unit) capsule Take 1 (one) capsule (1,000 Units total) by mouth 2 (two) times a day . clopidogreL (PLAVIX) 75 mg tablet Take 1 (one) tablet (75 mg total) by mouth daily . DULoxetine (CYMBALTA) 20 MG capsule Take 1 (one) capsule (20 mg total) by mouth daily . fluticasone propionate (FLONASE) 50 mcg/actuation nasal spray Instill 1 (one) spray into each nostril daily as needed for allergies . nitroGLYCERIN (NITROSTAT) 0.[address] 1 (one) tablet (0.4 mg total) under the tongue every 5 (five) minutes as needed for chest pain . pantoprazole (PROTONIX) 40 MG tablet Take 1 (one) tablet (40 mg total) by mouth 2 (two) times a day . rosuvastatin (CRESTOR) 5 MG tablet Take 1 (one) tablet (5 mg total) by mouth every night at bedtime . scopolamine (TRANSDERM-SCOP) 1 mg over [address] 1.5 patches on the skin every 72 hours As needed for travel . senna-docusate (SENNA-S) 8.6-50 mg Take 1 (one) tablet by mouth daily . sucralfate (CARAFATE) 1 gram tablet Take 1 (one) tablet (1 g total) by mouth 4 (four) times a day . vitamin E 400 UNIT capsule Take 1 (one) capsule (400 Units total) by mouth 2 (two) times a day . ALLERGIES: Allergies Allergen Reactions Codeine GI Intolerance Fentanyl Itching Penicillins Unknown REVIEW OF SYSTEMS is normal as below YES [] NO [x] COVID19 Screen: Negative for fever, cough, SOB, exposure. Constitutional Symptoms: Negative for unexplained falls, weight loss Eyes: Negative for eye pain or vision changes Ears, Nose, Mouth, Throat: Negative for rhinorrhea, nasal pain, dysphagia, hoarseness Cardiovascular: Negative for chest pain, orthopnea, edema Respiratory: Negative for cough, shortness of breath Gastrointestinal: Negative for abdominal pain, nausea, vomiting, diarrhea Genitourinary: Negative for dysuria, hematuria Musculoskeletal: + right leg pain. Skin/Breast: Negative for rash, itching, lesions Neurological: Negative for paresthesia, paralysis, loss of bowel or bladder control, loss of consciousness Psychiatric: Negative for depression, anxiety, or suicidal ideations Endocrine: Negative for heat/cold intolerance, polydipsia, polyphagia, polyuria Hematologic/Lymphatic: Negative for anticoagulant use, family hx of clotting or bleeding disorders. +antiplatelet use. Allergic/Immunologic: Allergies reviewed, no use of immunosuppressants or active chemotherapy Other than the above items, the remainder of a complete review of systems is otherwise negative. PHYSICAL EXAM: BP (!) 144/75 Pulse 88 Temp 97.7 F (36.5 C) (Oral) Resp 14 Wt 57.7 kg (127 lb 3.3 oz) SpO2 93% PRIMARY SURVEY Airway Patent, trachea midline. Phonation is normal. Breathing Symmetric chest rise and fall. Breath sounds present bilaterally. Circulation Pulses 2+ throughout. Disability Moves extremities normally x 4. No lateralizing neurologic signs. Pupils 3 mm equal and reactive bilaterally. Brick Coma Scale EYES (4-spont, 3-to verb stim, 2-to pain, 1-none) 4 VERBAL (5-oriented, 4-confused, 3-inappropriate, 2-incomprehensible, 1-none) 5 MOTOR (6-follows, 5-localizes, 4-withdraws, 3-flexion, 2-extension, 1-none) 6 GCS: 15 SECONDARY SURVEY General Appears age appropriate. HEENT Head normocephalic, PERRL, EOMI, mid face stable, tympanic membranes intact, no subconjunctival hemorrhage, nares patent bilaterally, no epistaxis, mouth clear of foreign bodies, no lacerations or abrasions. Neck Cervical collar in place, no midline tenderness to palpation, no step offs, crepitus, or deformities. Chest/Respiratory Lungs clear bilaterally. Breathing is non-labored. Chest wall without tenderness to palpation, crepitus, deformities, lacerations, or abrasions. Cardiovascular RRR. No peripheral edema. Abdomen Soft, nontender to palpation, non-peritoneal. No lacerations, abrasions or ecchymosis. Pelvis Stable, no crepitance. Non-tender. Rectal Defer. Genitalia normal for age. No lesions noted. No blood at meatus. Back/Spine TLS spine non-tender to palpation. No step-offs, deformities, lacerations or abrasions. Musculoskeletal Extremities without clubbing, cyanosis, edema. Right leg deformity. Skin Warm and dry. No lesions of concern. Not jaundiced. No abrasions/contusions. Neurologic A&Ox3. Strength, sensation, proprioception normal. No cerebellar signs. Psychiatric Normal mood. Normal affect. Appropriate insight into current situation. FAST Exam: Deferred The primary and secondary surveys as well as adjunct testing were conducted in accordance with ATLS guidelines. The attending trauma surgeon Dr. Beck was present at bedside. IMAGING STUDIES: CXR/PXR obtained and reviewed in real time in the trauma bay CT scan of the head, neck have been ordered the images were reviewed in real time in the CT department, radiologic interpretation is pending. LABORATORY STUDIES: Results from trauma bay labs were drawn and are pending. [facility] 08-22-2023 History and physical note INTERVAL HISTORY AND PHYSICAL Patient Name: Radha Baldwin Admit Date: [id number] MR #: [id number] : 1940 The H&P has been reviewed and the patient has been examined. I concur with the findings of the H&P. There are no significant changes. It is appropriate to proceed with the planned procedure. Crissy Luu MD 08/22/2023 9:31 AM Source Note - Annie Her CNP - 08/21/2023 5:09 PM EST [place] TRAUMA EVALUATION / HISTORY AND PHYSICAL ======== Closed traumatic displaced fracture of shaft of right femur with routine healing Assessment & Plan Reduced and splinted. - pain control. - OR in Am with yasmine. - vitamin D. * Fall Assessment & Plan CT H/N (-). Admitted with these risk variables:None. Please see assessment and plan for further details. MECHANISM OF INJURY: LOC (yes/no?): no Anticoagulant / Anti-platelet Rx? (for what dx?): aspirin/plavix Notification Time: 142 Arrival To Bedside: 1427 Attending Arrival Time: 1438 CHIEF COMPLAINT: fall HISTORY OF PRESENT ILLNESS / INJURY (HPI): Ms. Baldwin is a 83-year-old female with a past medical history of CVA on aspirin plavix who sustained a ground level fall. She tripped over her rug and landed on her right leg. She denies LOC. Upon arrival to ED she was a GCS of 15, moving all extremities, endorsing pain to her right leg. She was NVI, HD stable. Will reduce and splint right leg. PAST MEDICAL HISTORY (PMH): Past Medical History: Diagnosis Date CVA (cerebral vascular accident) (HCC) No past surgical history on file. No family history on file. Last Tetanus: unknown MEDICATIONS: No current facility-administered medications on file prior to encounter. Current Outpatient Medications on File Prior to Encounter Medication Sig Dispense Refill acetaminophen (Tylenol Arthritis Pain) 650 MG CR tablet Take 2 (two) tablets (1,300 mg total) by mouth 2 (two) times a day . ascorbic acid, vitamin C, (ascorbic acid with marcell hips) 500 MG tablet Take 1 (one) tablet (500 mg total) by mouth 2 (two) times a day . aspirin 81 MG EC tablet Take 1 (one) tablet (81 mg total) by mouth daily . BIOTIN ORAL Take 1 capsule by mouth daily . cholecalciferol, vitamin D3, 25 mcg (1,000 unit) capsule Take 1 (one) capsule (1,000 Units total) by mouth 2 (two) times a day . clopidogreL (PLAVIX) 75 mg tablet Take 1 (one) tablet (75 mg total) by mouth daily . DULoxetine (CYMBALTA) 20 MG capsule Take 1 (one) capsule (20 mg total) by mouth daily . fluticasone propionate (FLONASE) 50 mcg/actuation nasal spray Instill 1 (one) spray into each nostril daily as needed for allergies . nitroGLYCERIN (NITROSTAT) 0.[address] 1 (one) tablet (0.4 mg total) under the tongue every 5 (five) minutes as needed for chest pain . pantoprazole (PROTONIX) 40 MG tablet Take 1 (one) tablet (40 mg total) by mouth 2 (two) times a day . rosuvastatin (CRESTOR) 5 MG tablet Take 1 (one) tablet (5 mg total) by mouth every night at bedtime . scopolamine (TRANSDERM-SCOP) 1 mg over [address] 1.5 patches on the skin every 72 hours As needed for travel . senna-docusate (SENNA-S) 8.6-50 mg Take 1 (one) tablet by mouth daily . sucralfate (CARAFATE) 1 gram tablet Take 1 (one) tablet (1 g total) by mouth 4 (four) times a day . vitamin E 400 UNIT capsule Take 1 (one) capsule (400 Units total) by mouth 2 (two) times a day . ALLERGIES: Allergies Allergen Reactions Codeine GI Intolerance Fentanyl Itching Penicillins Unknown REVIEW OF SYSTEMS is normal as below YES [] NO [x] COVID19 Screen: Negative for fever, cough, SOB, exposure. Constitutional Symptoms: Negative for unexplained falls, weight loss Eyes: Negative for eye pain or vision changes Ears, Nose, Mouth, Throat: Negative for rhinorrhea, nasal pain, dysphagia, hoarseness Cardiovascular: Negative for chest pain, orthopnea, edema Respiratory: Negative for cough, shortness of breath Gastrointestinal: Negative for abdominal pain, nausea, vomiting, diarrhea Genitourinary: Negative for dysuria, hematuria Musculoskeletal: + right leg pain. Skin/Breast: Negative for rash, itching, lesions Neurological: Negative for paresthesia, paralysis, loss of bowel or bladder control, loss of consciousness Psychiatric: Negative for depression, anxiety, or suicidal ideations Endocrine: Negative for heat/cold intolerance, polydipsia, polyphagia, polyuria Hematologic/Lymphatic: Negative for anticoagulant use, family hx of clotting or bleeding disorders. +antiplatelet use. Allergic/Immunologic: Allergies reviewed, no use of immunosuppressants or active chemotherapy Other than the above items, the remainder of a complete review of systems is otherwise negative. PHYSICAL EXAM: BP (!) 144/75 Pulse 88 Temp 97.7 F (36.5 C) (Oral) Resp 14 Wt 57.7 kg (127 lb 3.3 oz) SpO2 93% PRIMARY SURVEY Airway Patent, trachea midline. Phonation is normal. Breathing Symmetric chest rise and fall. Breath sounds present bilaterally. Circulation Pulses 2+ throughout. Disability Moves extremities normally x 4. No lateralizing neurologic signs. Pupils 3 mm equal and reactive bilaterally. Brick Coma Scale EYES (4-spont, 3-to verb stim, 2-to pain, 1-none) 4 VERBAL (5-oriented, 4-confused, 3-inappropriate, 2-incomprehensible, 1-none) 5 MOTOR (6-follows, 5-localizes, 4-withdraws, 3-flexion, 2-extension, 1-none) 6 GCS: 15 SECONDARY SURVEY General Appears age appropriate. HEENT Head normocephalic, PERRL, EOMI, mid face stable, tympanic membranes intact, no subconjunctival hemorrhage, nares patent bilaterally, no epistaxis, mouth clear of foreign bodies, no lacerations or abrasions. Neck Cervical collar in place, no midline tenderness to palpation, no step offs, crepitus, or deformities. Chest/Respiratory Lungs clear bilaterally. Breathing is non-labored. Chest wall without tenderness to palpation, crepitus, deformities, lacerations, or abrasions. Cardiovascular RRR. No peripheral edema. Abdomen Soft, nontender to palpation, non-peritoneal. No lacerations, abrasions or ecchymosis. Pelvis Stable, no crepitance. Non-tender. Rectal Defer. Genitalia normal for age. No lesions noted. No blood at meatus. Back/Spine TLS spine non-tender to palpation. No step-offs, deformities, lacerations or abrasions. Musculoskeletal Extremities without clubbing, cyanosis, edema. Right leg deformity. Skin Warm and dry. No lesions of concern. Not jaundiced. No abrasions/contusions. Neurologic A&Ox3. Strength, sensation, proprioception normal. No cerebellar signs. Psychiatric Normal mood. Normal affect. Appropriate insight into current situation. FAST Exam: Deferred The primary and secondary surveys as well as adjunct testing were conducted in accordance with ATLS guidelines. The attending trauma surgeon Dr. Beck was present at bedside. IMAGING STUDIES: CXR/PXR obtained and reviewed in real time in the trauma bay CT scan of the head, neck have been ordered the images were reviewed in real time in the CT department, radiologic interpretation is pending. LABORATORY STUDIES: Results from trauma bay labs were drawn and are pending. [place] [facility] TRAUMA EVALUATION / HISTORY AND PHYSICAL ======== Closed traumatic displaced fracture of shaft of right femur with routine healing Assessment & Plan Reduced and splinted. - pain control. - OR in Am with yasmine. - vitamin D. * Fall Assessment & Plan CT H/N (-). Admitted with these risk variables:None. Please see assessment and plan for further details. MECHANISM OF INJURY: LOC (yes/no?): no Anticoagulant / Anti-platelet Rx? (for what dx?): aspirin/plavix Notification Time: 1422 Arrival To Bedside: 1426 Attending Arrival Time: 1438 CHIEF COMPLAINT: fall HISTORY OF PRESENT ILLNESS / INJURY (HPI): Ms. Baldwin is a 83-year-old female with a past medical history of CVA on aspirin plavix who sustained a ground level fall. She tripped over her rug and landed on her right leg. She denies LOC. Upon arrival to ED she was a GCS of 15, moving all extremities, endorsing pain to her right leg. She was NVI, HD stable. Will reduce and splint right leg. PAST MEDICAL HISTORY (PMH): Past Medical History: Diagnosis Date CVA (cerebral vascular accident) (HCC) No past surgical history on file. No family history on file. Last Tetanus: unknown MEDICATIONS: No current facility-administered medications on file prior to encounter. Current Outpatient Medications on File Prior to Encounter Medication Sig Dispense Refill acetaminophen (Tylenol Arthritis Pain) 650 MG CR tablet Take 2 (two) tablets (1,300 mg total) by mouth 2 (two) times a day . ascorbic acid, vitamin C, (ascorbic acid with marcell hips) 500 MG tablet Take 1 (one) tablet (500 mg total) by mouth 2 (two) times a day . aspirin 81 MG EC tablet Take 1 (one) tablet (81 mg total) by mouth daily . BIOTIN ORAL Take 1 capsule by mouth daily . cholecalciferol, vitamin D3, 25 mcg (1,000 unit) capsule Take 1 (one) capsule (1,000 Units total) by mouth 2 (two) times a day . clopidogreL (PLAVIX) 75 mg tablet Take 1 (one) tablet (75 mg total) by mouth daily . DULoxetine (CYMBALTA) 20 MG capsule Take 1 (one) capsule (20 mg total) by mouth daily . fluticasone propionate (FLONASE) 50 mcg/actuation nasal spray Instill 1 (one) spray into each nostril daily as needed for allergies . nitroGLYCERIN (NITROSTAT) 0.[address] 1 (one) tablet (0.4 mg total) under the tongue every 5 (five) minutes as needed for chest pain . pantoprazole (PROTONIX) 40 MG tablet Take 1 (one) tablet (40 mg total) by mouth 2 (two) times a day . rosuvastatin (CRESTOR) 5 MG tablet Take 1 (one) tablet (5 mg total) by mouth every night at bedtime . scopolamine (TRANSDERM-SCOP) 1 mg over [address] 1.5 patches on the skin every 72 hours As needed for travel . senna-docusate (SENNA-S) 8.6-50 mg Take 1 (one) tablet by mouth daily . sucralfate (CARAFATE) 1 gram tablet Take 1 (one) tablet (1 g total) by mouth 4 (four) times a day . vitamin E 400 UNIT capsule Take 1 (one) capsule (400 Units total) by mouth 2 (two) times a day . ALLERGIES: Allergies Allergen Reactions Codeine GI Intolerance Fentanyl Itching Penicillins Unknown REVIEW OF SYSTEMS is normal as below YES [] NO [x] COVID19 Screen: Negative for fever, cough, SOB, exposure. Constitutional Symptoms: Negative for unexplained falls, weight loss Eyes: Negative for eye pain or vision changes Ears, Nose, Mouth, Throat: Negative for rhinorrhea, nasal pain, dysphagia, hoarseness Cardiovascular: Negative for chest pain, orthopnea, edema Respiratory: Negative for cough, shortness of breath Gastrointestinal: Negative for abdominal pain, nausea, vomiting, diarrhea Genitourinary: Negative for dysuria, hematuria Musculoskeletal: + right leg pain. Skin/Breast: Negative for rash, itching, lesions Neurological: Negative for paresthesia, paralysis, loss of bowel or bladder control, loss of consciousness Psychiatric: Negative for depression, anxiety, or suicidal ideations Endocrine: Negative for heat/cold intolerance, polydipsia, polyphagia, polyuria Hematologic/Lymphatic: Negative for anticoagulant use, family hx of clotting or bleeding disorders. +antiplatelet use. Allergic/Immunologic: Allergies reviewed, no use of immunosuppressants or active chemotherapy Other than the above items, the remainder of a complete review of systems is otherwise negative. PHYSICAL EXAM: BP (!) 144/75 Pulse 88 Temp 97.7 F (36.5 C) (Oral) Resp 14 Wt 57.7 kg (127 lb 3.3 oz) SpO2 93% PRIMARY SURVEY Airway Patent, trachea midline. Phonation is normal. Breathing Symmetric chest rise and fall. Breath sounds present bilaterally. Circulation Pulses 2+ throughout. Disability Moves extremities normally x 4. No lateralizing neurologic signs. Pupils 3 mm equal and reactive bilaterally. Vidal Coma Scale EYES (4-spont, 3-to verb stim, 2-to pain, 1-none) 4 VERBAL (5-oriented, 4-confused, 3-inappropriate, 2-incomprehensible, 1-none) 5 MOTOR (6-follows, 5-localizes, 4-withdraws, 3-flexion, 2-extension, 1-none) 6 GCS: 15 SECONDARY SURVEY General Appears age appropriate. HEENT Head normocephalic, PERRL, EOMI, mid face stable, tympanic membranes intact, no subconjunctival hemorrhage, nares patent bilaterally, no epistaxis, mouth clear of foreign bodies, no lacerations or abrasions. Neck Cervical collar in place, no midline tenderness to palpation, no step offs, crepitus, or deformities. Chest/Respiratory Lungs clear bilaterally. Breathing is non-labored. Chest wall without tenderness to palpation, crepitus, deformities, lacerations, or abrasions. Cardiovascular RRR. No peripheral edema. Abdomen Soft, nontender to palpation, non-peritoneal. No lacerations, abrasions or ecchymosis. Pelvis Stable, no crepitance. Non-tender. Rectal Defer. Genitalia normal for age. No lesions noted. No blood at meatus. Back/Spine TLS spine non-tender to palpation. No step-offs, deformities, lacerations or abrasions. Musculoskeletal Extremities without clubbing, cyanosis, edema. Right leg deformity. Skin Warm and dry. No lesions of concern. Not jaundiced. No abrasions/contusions. Neurologic A&Ox3. Strength, sensation, proprioception normal. No cerebellar signs. Psychiatric Normal mood. Normal affect. Appropriate insight into current situation. FAST Exam: Deferred The primary and secondary surveys as well as adjunct testing were conducted in accordance with ATLS guidelines. The attending trauma surgeon Dr. Beck was present at bedside. IMAGING STUDIES: CXR/PXR obtained and reviewed in real time in the trauma bay CT scan of the head, neck have been ordered the images were reviewed in real time in the CT department, radiologic interpretation is pending. LABORATORY STUDIES: Results from trauma bay labs were drawn and are pending. Associated attestation - Leno Beck MD - 08/21/2023 5:19 PM EST Images from the original note were not included. TRAUMA, CRITICAL CARE, AND ACUTE CARE SURGERY STAFF PHYSICIAN NOTE OF PERSONAL INVOLVEMENT IN CARE: Please link this note as an addendum to the MELISA note with the same day of service. The patient was seen and examined by me, the attending trauma surgeon, on multidisciplinary rounds on the date of service listed above. I have reviewed the MELISA note, labs, studies, and [facility] ascp consultant notes. I have reviewed and agree with the documented history, exam, and plan of care, with the following additions and corrections: Radha Baldwin is a 83 y.o. female presenting as Category 2 trauma following a mechanical fall from standing, patient tripped. She is on aspirin and Plavix for history of stroke. On physical examination GCS is 15, he is neurovascularly intact, she is hemodynamically stable. Patient has complaints of right femoral pain with the right lower extremity externally rotated and shortened. Patient also with right knee pain. She states that she fell onto her right knee. Patient has no other complaints, she denies loss of consciousness. Imaging in the trauma bay obtained with R femur fx, will place in traction. Further imaging without further findings. This was a fx due to combination of osteopenia and trauma that alone would not have caused the fracture. Will consult osteoporosis management and check Vit D. Obtained labs and imaging personally reviewed with evidence of R femur fx. Our plan for this patient will be admit to trauma, ortho eval, traction. Pt evaluated at bedside at 1438 on 08/21/23. Admitted with these risk variables:None. Please see assessment and plan for further details. Deric Beck MD, FACS, DABS, ANNETTAA Trauma, Acute Care Surgery, Surgical Critical Care, and Neurocritical Care documented in this encounter [facility] 08-22-2023 Note Formatting of this n ote might be different from the original. PHYSICAL THERAPY VISIT VARIANCE NOTE Attempted to see patient at this time, but unable secondary to: Awaiting Medical Clearance (comment). Closed traumatic displaced fracture of shaft of right femur with routine healing Assessment & Plan Reduced and splinted. - pain control. - OR in Am with yasmine. Will follow up as appropriate. [facility] 08-22-2023 Note Formatting of this n ote might be different from the original. Patient with emesis at this time [facility] 08-22-2023 Note Formatting of this n ote might be different from the original. Spoke with trauma melisa as patient has nausea and would like regalan rather than zofran order given and med given [facility] 08-21-2023 Note Formatting of this n ote might be different from the original. Problem: Actual or potential alteration in health Goal: Absence of healthcare acquired conditions Outcome: Partially Met Goal: Knowledge of Interdisciplinary Plan of Care Outcome: Partially Met Goal: Knowledge of Enviroment Outcome: Partially Met Problem: Pain Goal: Manage acute pain Outcome: Partially Met Goal: Manage chronic pain Outcome: Partially Met Goal: Reduced pain sensation Outcome: Partially Met Goal: Achievement of comfort function goal Outcome: Partially Met Problem: Pain Goal: Manage acute pain Outcome: Partially Met Goal: Manage chronic pain Outcome: Partially Met Goal: Reduced pain sensation Outcome: Partially Met Goal: Achievement of comfort function goal Outcome: Partially Met Problem: Pressure Ulcer - Risk of Goal: Absence of pressure ulcer Outcome: Partially Met Problem: Falls, Risk of Goal: Absence of falls Outcome: Partially Met [facility] 08-21-2023 Note Formatting of this n ote might be different from the original. Spoke with trauma melisa and was given the ok to loosen the edwin bandage around patient ankle due to c/o pain and numbness to the area [facility] 08-21-2023 Note Formatting of this n ote might be different from the original. Problem: Actual or potential alteration in health Goal: Absence of healthcare acquired conditions 08/21/[id number] by Kelley Garnett RN Outcome: Partially Met 08/21/[id number] by Kelley Garnett, ANDREINA Outcome: Partially Met Goal: Knowledge of Interdisciplinary Plan of Care 08/21/20231837 by Kelley Garnett, ANDREINA Outcome: Partially Met 08/21/20231747 by Kelley Garnett, ANDREINA Outcome: Partially Met Goal: Knowledge of Enviroment 08/21/20231837 by Kelley Garnett, ANDREINA Outcome: Partially Met 08/21/20231747 by Kelley Garnett, RN Outcome: Partially Met Problem: Pain Goal: Manage acute pain 08/21/20231837 by Kelley Garnett RN Outcome: Partially Met 08/21/20231747 by Kelley Garnett RN Outcome: Partially Met Goal: Manage chronic pain 08/21/20231837 by Kelley Garnett RN Outcome: Partially Met 08/21/20231747 by Kelley Garnett RN Outcome: Partially Met Goal: Reduced pain sensation 08/21/20231837 by Kelley Garnett, ANDREINA Outcome: Partially Met 08/21/20231747 by Kelley Garnett RN Outcome: Partially Met Goal: Achievement of comfort function goal 08/21/20231837 by Kelley Garnett RN Outcome: Partially Met 08/21/20231747 by Kelley Garnett RN Outcome: Partially Met Problem: Pain Goal: Manage acute pain 08/21/20231837 by Kelley Garnett, ANDREINA Outcome: Partially Met 08/21/20231747 by Kelley Garnett, ANDREINA Outcome: Partially Met Goal: Manage chronic pain 08/21/20231837 by Kelley Garnett RN Outcome: Partially Met 08/21/20231747 by Kelley Garnett RN Outcome: Partially Met Goal: Reduced pain sensation 08/21/20231837 by Kelley Garnett RN Outcome: Partially Met 08/21/20231747 by Kelley Garnett RN Outcome: Partially Met Goal: Achievement of comfort function goal 08/21/20231837 by Kelley Garnett RN Outcome: Partially Met 08/21/20231747 by Kelley Garnett RN Outcome: Partially Met Problem: Pressure Ulcer - Risk of Goal: Absence of pressure ulcer 08/21/20231837 by Kelley Garnett RN Outcome: Partially Met 08/21/20231747 by Kelley Garnett RN Outcome: Partially Met [facility] 08-21-2023 Note Formatting of this n ote might be different from the original. Problem: Actual or potential alteration in health Goal: Absence of healthcare acquired conditions Outcome: Partially Met Goal: Knowledge of Interdisciplinary Plan of Care Outcome: Partially Met Goal: Knowledge of Enviroment Outcome: Partially Met Problem: Pain Goal: Manage acute pain Outcome: Partially Met Goal: Manage chronic pain Outcome: Partially Met Goal: Reduced pain sensation Outcome: Partially Met Goal: Achievement of comfort function goal Outcome: Partially Met Problem: Pain Goal: Manage acute pain Outcome: Partially Met Goal: Manage chronic pain Outcome: Partially Met Goal: Reduced pain sensation Outcome: Partially Met Goal: Achievement of comfort function goal Outcome: Partially Met Problem: Pressure Ulcer - Risk of Goal: Absence of pressure ulcer Outcome: Partially Met [facility] 08-21-2023 History and physical note [place] TRAUMA TRAUMA EVALUATION / HISTORY AND PHYSICAL ======== Closed traumatic displaced fracture of shaft of right femur with routine healing Assessment & Plan Reduced and splinted. - pain control. - OR in Am with yasmine. - vitamin D. * Fall Assessment & Plan CT H/N (-). Admitted with these risk variables:None. Please see assessment and plan for further details. MECHANISM OF INJURY: LOC (yes/no?): no Anticoagulant / Anti-platelet Rx? (for what dx?): aspirin/plavix Notification Time: 1423 Arrival To Bedside: 1427 Attending Arrival Time: 1438 CHIEF COMPLAINT: fall HISTORY OF PRESENT ILLNESS / INJURY (HPI): Ms. Baldwin is a 83-year-old female with a past medical history of CVA on aspirin plavix who sustained a ground level fall. She tripped over her rug and landed on her right leg. She denies LOC. Upon arrival to ED she was a GCS of 15, moving all extremities, endorsing pain to her right leg. She was NVI, HD stable. Will reduce and splint right leg. PAST MEDICAL HISTORY (PMH): Past Medical History: Diagnosis Date CVA (cerebral vascular accident) (HCC) No past surgical history on file. No family history on file. Last Tetanus: unknown MEDICATIONS: No current facility-administered medications on file prior to encounter. Current Outpatient Medications on File Prior to Encounter Medication Sig Dispense Refill acetaminophen (Tylenol Arthritis Pain) 650 MG CR tablet Take 2 (two) tablets (1,300 mg total) by mouth 2 (two) times a day . ascorbic acid, vitamin C, (ascorbic acid with marcell hips) 500 MG tablet Take 1 (one) tablet (500 mg total) by mouth 2 (two) times a day . aspirin 81 MG EC tablet Take 1 (one) tablet (81 mg total) by mouth daily . BIOTIN ORAL Take 1 capsule by mouth daily . cholecalciferol, vitamin D3, 25 mcg (1,000 unit) capsule Take 1 (one) capsule (1,000 Units total) by mouth 2 (two) times a day . clopidogreL (PLAVIX) 75 mg tablet Take 1 (one) tablet (75 mg total) by mouth daily . DULoxetine (CYMBALTA) 20 MG capsule Take 1 (one) capsule (20 mg total) by mouth daily . fluticasone propionate (FLONASE) 50 mcg/actuation nasal spray Instill 1 (one) spray into each nostril daily as needed for allergies . nitroGLYCERIN (NITROSTAT) 0.[address] 1 (one) tablet (0.4 mg total) under the tongue every 5 (five) minutes as needed for chest pain . pantoprazole (PROTONIX) 40 MG tablet Take 1 (one) tablet (40 mg total) by mouth 2 (two) times a day . rosuvastatin (CRESTOR) 5 MG tablet Take 1 (one) tablet (5 mg total) by mouth every night at bedtime . scopolamine (TRANSDERM-SCOP) 1 mg over [address] 1.5 patches on the skin every 72 hours As needed for travel . senna-docusate (SENNA-S) 8.6-50 mg Take 1 (one) tablet by mouth daily . sucralfate (CARAFATE) 1 gram tablet Take 1 (one) tablet (1 g total) by mouth 4 (four) times a day . vitamin E 400 UNIT capsule Take 1 (one) capsule (400 Units total) by mouth 2 (two) times a day . ALLERGIES: Allergies Allergen Reactions Codeine GI Intolerance Fentanyl Itching Penicillins Unknown REVIEW OF SYSTEMS is normal as below YES [] NO [x] COVID19 Screen: Negative for fever, cough, SOB, exposure. Constitutional Symptoms: Negative for unexplained falls, weight loss Eyes: Negative for eye pain or vision changes Ears, Nose, Mouth, Throat: Negative for rhinorrhea, nasal pain, dysphagia, hoarseness Cardiovascular: Negative for chest pain, orthopnea, edema Respiratory: Negative for cough, shortness of breath Gastrointestinal: Negative for abdominal pain, nausea, vomiting, diarrhea Genitourinary: Negative for dysuria, hematuria Musculoskeletal: + right leg pain. Skin/Breast: Negative for rash, itching, lesions Neurological: Negative for paresthesia, paralysis, loss of bowel or bladder control, loss of consciousness Psychiatric: Negative for depression, anxiety, or suicidal ideations Endocrine: Negative for heat/cold intolerance, polydipsia, polyphagia, polyuria Hematologic/Lymphatic: Negative for anticoagulant use, family hx of clotting or bleeding disorders. +antiplatelet use. Allergic/Immunologic: Allergies reviewed, no use of immunosuppressants or active chemotherapy Other than the above items, the remainder of a complete review of systems is otherwise negative. PHYSICAL EXAM: BP (!) 144/75 Pulse 88 Temp 97.7 F (36.5 C) (Oral) Resp 14 Wt 57.7 kg (127 lb 3.3 oz) SpO2 93% PRIMARY SURVEY Airway Patent, trachea midline. Phonation is normal. Breathing Symmetric chest rise and fall. Breath sounds present bilaterally. Circulation Pulses 2+ throughout. Disability Moves extremities normally x 4. No lateralizing neurologic signs. Pupils 3 mm equal and reactive bilaterally. Brick Coma Scale EYES (4-spont, 3-to verb stim, 2-to pain, 1-none) 4 VERBAL (5-oriented, 4-confused, 3-inappropriate, 2-incomprehensible, 1-none) 5 MOTOR (6-follows, 5-localizes, 4-withdraws, 3-flexion, 2-extension, 1-none) 6 GCS: 15 SECONDARY SURVEY General Appears age appropriate. HEENT Head normocephalic, PERRL, EOMI, mid face stable, tympanic membranes intact, no subconjunctival hemorrhage, nares patent bilaterally, no epistaxis, mouth clear of foreign bodies, no lacerations or abrasions. Neck Cervical collar in place, no midline tenderness to palpation, no step offs, crepitus, or deformities. Chest/Respiratory Lungs clear bilaterally. Breathing is non-labored. Chest wall without tenderness to palpation, crepitus, deformities, lacerations, or abrasions. Cardiovascular RRR. No peripheral edema. Abdomen Soft, nontender to palpation, non-peritoneal. No lacerations, abrasions or ecchymosis. Pelvis Stable, no crepitance. Non-tender. Rectal Defer. Genitalia normal for age. No lesions noted. No blood at meatus. Back/Spine TLS spine non-tender to palpation. No step-offs, deformities, lacerations or abrasions. Musculoskeletal Extremities without clubbing, cyanosis, edema. Right leg deformity. Skin Warm and dry. No lesions of concern. Not jaundiced. No abrasions/contusions. Neurologic A&Ox3. Strength, sensation, proprioception normal. No cerebellar signs. Psychiatric Normal mood. Normal affect. Appropriate insight into current situation. FAST Exam: Deferred The primary and secondary surveys as well as adjunct testing were conducted in accordance with ATLS guidelines. The attending trauma surgeon Dr. Beck was present at bedside. IMAGING STUDIES: CXR/PXR obtained and reviewed in real time in the trauma bay CT scan of the head, neck have been ordered the images were reviewed in real time in the CT department, radiologic interpretation is pending. LABORATORY STUDIES: Results from trauma bay labs were drawn and are pending. Associated attestation - Leno Beck MD - 08/21/2023 5:19 PM EST Images from the original note were not included. TRAUMA, CRITICAL CARE, AND ACUTE CARE SURGERY STAFF PHYSICIAN NOTE OF PERSONAL INVOLVEMENT IN CARE: Please link this note as an addendum to the MELISA note with the same day of service. The patient was seen and examined by me, the attending trauma surgeon, on multidisciplinary rounds on the date of service listed above. I have reviewed the MELISA note, labs, studies, and oracle ascp consultant notes. I have reviewed and agree with the documented history, exam, and plan of care, with the following additions and corrections: Radha Baldwin is a 83 y.o. female presenting as Category 2 trauma following a mechanical fall from standing, patient tripped. She is on aspirin and Plavix for history of stroke. On physical examination GCS is 15, he is neurovascularly intact, she is hemodynamically stable. Patient has complaints of right femoral pain with the right lower extremity externally rotated and shortened. Patient also with right knee pain. She states that she fell onto her right knee. Patient has no other complaints, she denies loss of consciousness. Imaging in the trauma bay obtained with R femur fx, will place in traction. Further imaging without further findings. This was a fx due to combination of osteopenia and trauma that alone would not have caused the fracture. Will consult osteoporosis management and check Vit D. Obtained labs and imaging personally reviewed with evidence of R femur fx. Our plan for this patient will be admit to trauma, ortho eval, traction. Pt evaluated at bedside at 1438 on 08/21/23. Admitted with these risk variables:None. Please see assessment and plan for further details. Deric Beck MD, FACS, DABS, DABA Trauma, Acute Care Surgery, Surgical Critical Care, and Neurocritical Care [facility] 08-21-2023 Evaluation + Plan note Associated Problem(s): Fall . [facility] 08-21-2023 Evaluation + Plan note Associated Problem(s): Closed traumatic displaced fracture of shaft of right femur with routine healing . [facility] 08-21-2023 Nurse procedure note Splint on and in place [facility] 08-21-2023 Nurse procedure note Xray at bedside. [facility] 08-21-2023 Nurse procedure note Attempting to reduce at this time. Xray called. [facility] 08-21-2023 Nurse procedure note Rt at bedside [facility] 08-21-2023 Emergency department Note Hourly rounding assessment completed on the patient. [x] Patient updated on plan of care [x] All comfort needs addressed [x] Patient updated on duration of visit Pt continues to be nauseous at this time, notified Dr. Espinosa awaiting for orders at this time, pt A&Ox4, pt reports 2/10 pain. All questions answered, patient denies further needs. Call light within reach. [facility] 08-21-2023 Emergency department Note Hourly rounding assessment completed on the patient. [x] Patient updated on plan of care [x] All comfort needs addressed [x] Patient updated on duration of visit Pt continues to be nauseous at this time, notified Dr. Espinosa awaiting for orders at this time, pt A&Ox4, pt reports 2/10 pain. All questions answered, patient denies further needs. Call light within reach. Associated Order(s): Orthopedic Injury Treatment; Procedural Sedation [facility] PERIOP ATTENDING NOTE: NAME: Radha Baldwin CSN: [id number] 83 y.o. PCP: No, Physician History: Chief Complaint: Fall HPI: The history was obtained from the patient and EMS. Radha is a 83 y.o. female who presents to ED by ambulance with a chief complaint of Fall. Patient has past medical history of stroke on aspirin and Plavix. The patient tripped and fell at home. She denies head injury or LOC. Patient reports right leg pain. Denies any other injury or pain at this time. Patient has surgical history of the right hip replacement. PMHx: Past Medical History: Diagnosis Date CVA (cerebral vascular accident) (HCC) Hyperlipidemia PMSx: Past Surgical History: Procedure Laterality Date right hip replacement FAM. Hx: History reviewed. No pertinent family history. SOC. Hx: Social History Socioeconomic History Marital status: Tobacco Use Smoking status: Never Smokeless tobacco: Never Substance and Sexual Activity Alcohol use: Never Drug use: Never Sexual activity: Not Currently Social Determinants of Health Food Insecurity: No Food Insecurity (08/21/2023) Hunger Vital Sign Worried About Running Out of Food in the Last Year: Never true Ran Out of Food in the Last Year: Never true Transportation Needs: No Transportation Needs (08/21/2023) PRAPARE - Transportation Lack of Transportation (Medical): No Lack of Transportation (Non-Medical): No Housing Stability: Low Risk (08/21/2023) Housing Stability Vital Sign Unable to Pay for Housing in the Last Year: No Number of Places Lived in the Last Year: 1 Unstable Housing in the Last Year: No MEDs: Previous Medications Medication Sig acetaminophen (Tylenol Arthritis Pain) 650 MG CR tablet Take 2 (two) tablets (1,300 mg total) by mouth 2 (two) times a day . ascorbic acid, vitamin C, (ascorbic acid with marcell hips) 500 MG tablet Take 1 (one) tablet (500 mg total) by mouth 2 (two) times a day . aspirin 81 MG EC tablet Take 1 (one) tablet (81 mg total) by mouth daily . BIOTIN ORAL Take 1 capsule by mouth daily . cholecalciferol, vitamin D3, 25 mcg (1,000 unit) capsule Take 1 (one) capsule (1,000 Units total) by mouth 2 (two) times a day . clopidogreL (PLAVIX) 75 mg tablet Take 1 (one) tablet (75 mg total) by mouth daily . DULoxetine (CYMBALTA) 20 MG capsule Take 1 (one) capsule (20 mg total) by mouth daily . fluticasone propionate (FLONASE) 50 mcg/actuation nasal spray Instill 1 (one) spray into each nostril daily as needed for allergies . nitroGLYCERIN (NITROSTAT) 0.[address] 1 (one) tablet (0.4 mg total) under the tongue every 5 (five) minutes as needed for chest pain . pantoprazole (PROTONIX) 40 MG tablet Take 1 (one) tablet (40 mg total) by mouth 2 (two) times a day . rosuvastatin (CRESTOR) 5 MG tablet Take 1 (one) tablet (5 mg total) by mouth every night at bedtime . scopolamine (TRANSDERM-SCOP) 1 mg over [address] 1.5 patches on the skin every 72 hours As needed for travel . senna-docusate (SENNA-S) 8.6-50 mg Take 1 (one) tablet by mouth daily . sucralfate (CARAFATE) 1 gram tablet Take 1 (one) tablet (1 g total) by mouth 4 (four) times a day . vitamin E 400 UNIT capsule Take 1 (one) capsule (400 Units total) by mouth 2 (two) times a day . ALL: Allergies Allergen Reactions Codeine GI Intolerance Fentanyl Itching Penicillins Unknown ROS: Review of Systems Positives and pertinent negatives as per HPI. All other systems were reviewed and are negative. Physical Exam: Patient Vitals for the past 24 hrs: BP Temp Temp src Pulse Resp SpO2 Height Weight 08/22/23 1120 (!) 161/78 -- -- 78 16 97 % -- -- 08/22/23 1117 (!) 166/53 97.3 F (36.3 C) Infrared 78 16 99 % -- -- 08/22/23 0448 126/69 98.2 F (36.8 C) Oral 99 16 95 % -- -- 08/22/23 0345 -- -- -- -- 16 -- -- -- 08/22/23 0311 -- -- -- -- 16 -- -- -- 08/22/23 0030 -- -- -- -- 16 -- -- -- 08/22/23 0001 -- -- -- -- 16 -- -- -- 08/21/23 2350 (!) 161/71 99.6 F (37.6 C) Oral (!) 105 16 93 % -- -- 08/21/232114 -- -- -- -- 16 -- -- -- 08/21/232013 -- -- -- -- 16 -- -- -- 08/21/232009 133/62 98.1 F (36.7 C) Oral 90 16 92 % -- -- 08/21/23 1800 -- -- -- -- -- -- 5 58.1 kg (128 lb) 08/21/23 1710 (!) 144/75 97.7 F (36.5 C) Oral 88 16 93 % -- -- 08/21/23 1646 139/60 -- -- 80 14 99 % -- -- 08/21/23 1640 (!) 144/64 -- -- 83 13 100 % -- -- 08/21/23 1631 118/80 -- -- 79 (!) 21 100 % -- -- 08/21/23 1626 94/72 -- -- 81 (!) 19 100 % -- -- 08/21/23 1623 (!) 141/93 -- -- 82 18 98 % -- -- 08/21/23 1621 (!) 148/82 -- -- 81 (!) 36 100 % -- -- 08/21/23 1602 (!) 153/87 -- -- 87 16 100 % -- -- 08/21/23 1530 -- -- -- -- 16 -- -- -- 08/21/23 1515 (!) 171/84 -- -- 77 13 99 % -- -- 08/21/23 1500 (!) 177/94 -- -- 84 13 100 % -- -- 08/21/23 1453 (!) 181/73 -- -- 82 13 92 % -- -- 08/21/23 1453 -- -- -- -- -- -- -- 57.7 kg (127 lb 3.3 oz) 08/21/23 1435 (!) 168/83 -- -- -- -- -- -- -- 08/21/231433 -- -- -- 79 16 -- -- -- 08/21/231433 -- 97.8 F (36.6 C) Oral -- -- -- -- -- 08/21/23 1432 -- -- -- -- -- 95 % -- -- Physical Exam Vitals and nursing note reviewed. Constitutional: General: She is awake. Appearance: Normal appearance. HENT: Head: Normocephalic and atraumatic. Nose: Nose normal. Eyes: General: Lids are normal. No scleral icterus. Cardiovascular: Rate and Rhythm: Normal rate and regular rhythm. Pulses: Normal pulses. Heart sounds: Normal heart sounds. No murmur heard. Musculoskeletal: General: Tenderness, deformity and signs of injury present. Right lower leg: No swelling. No edema. Left lower leg: No swelling. No edema. Comments: Rt leg externally rotated and shortened. Knee flexed. Pain with movement/tenderness Pulmonary: Effort: Pulmonary effort is normal. No respiratory distress. Breath sounds: Normal breath sounds. No decreased breath sounds, wheezing, rhonchi or rales. Skin: General: Skin is warm and dry. Neurological: General: No focal deficit present. Mental Status: She is alert and oriented to person, place, and time. Laboratory & Radiological Imaging (if done): Labs Reviewed CBC - Abnormal; Notable for the following components: Result Value WBC 15.30 (*) RBC 3.67 (*) Hemoglobin 11.8 (*) All other components within normal limits BASIC METABOLIC PANEL - Abnormal; Notable for the following components: Glucose 147 (*) BUN/Creatinine Ratio 31.9 (*) All other components within normal limits Narrative: [facility] has implemented the eGFR calculation approach that does not have a coefficient for race that conforms to the NKF-ASN Task Force Recommendations. POC VENOUS BLOOD GAS PANEL-PULM - RALS - Abnormal; Notable for the following components: pH, Venous 7.49 (*) pCO2, Jabari 32.7 (*) Base Excess, Jabari 2.2 (*) Ionized Calcium 4.3 (*) O2 Sat, Jabari 80.6 (*) Carboxyhemoglobin 1.9 (*) Glucose 144 (*) All other components within normal limits MRSA DNA AMPLIFIED PROBE OBTAIN VENOUS BLOOD GASES AND PERFORM ALCOHOL, MEDICAL VITAMIN D, TOTAL, 25-OH TYPE AND SCREEN ABORH VERIFICATION XR Femur Right 2+ Views (Standard) Final Result Successful closed reduction of the now minimally displaced fracture of the right femoral mid diaphysis. Workstation ID: [id number] CT Cervical Spine Without Contrast Final Result No acute traumatic injury. Workstation ID: [id number] CT Head Or Brain Without Contrast Final Result 1. No acute infarct, hemorrhage or acute intracranial injury. 2. No skull fractures. 3. Stable atrophic, chronic microvascular ischemic changes as well as scattered old lacunar infarcts. KKV/tde Workstation ID: [id number] XR Pelvis 1 View (Standard) Final Result There is no acute posttraumatic abnormality in the pelvis. Workstation ID: [id number] XR Femur Right 2+ Views (Standard) Final Result 1. There is an acute, oblique, mid diaphyseal fracture of the right femur with moderate to severe displacement and over riding of fracture fragments and mild angulation. Workstation ID: [id number] XR Chest 1 View Final Result No acute cardiopulmonary process. ST/ads Workstation ID: [id number] US ED Fast Scan (Results Pending) XR OR Femur Right 2+ Views (Results Pending) Procedures: Orthopedic Injury Treatment Date/Time: 08/21/2023 4:00 PM Performed by: Joyce Espinosa MD Authorized by: Joyce Espinosa MD Injury location: upper leg Location details: right upper leg Injury type: fracture-dislocation Pre-procedure neurovascular assessment: neurovascularly intact Pre-procedure distal perfusion: normal Pre-procedure neurological function: normal Pre-procedure range of motion: normal Local anesthesia used: no Anesthesia: Local anesthesia used: no Patient sedated: yes Sedation plan: moderate ASA Classification: class 1 - normal, healthy patient Mallampati Classification: I - soft palate, uvula, fauces, pillars visible Pre-Sedation Assessment date/time: 08/22/2023 3:45 PM ASA Status unchanged immediately prior to sedation administration Sedatives: propofol Analgesia: hydromorphone Sedation start date/time: 08/22/2023 4:25 PM Sedation end date/time: 08/22/2023 4:55 PM Vitals: Vital signs were monitored during sedation. Manipulation performed: yes Skeletal traction used: yes Reduction successful: yes X-ray confirmed reduction: yes Immobilization: splint Splint type: long leg Supplies used: Ortho-Glass Post-procedure neurovascular assessment: post-procedure neurovascularly intact Post-procedure distal perfusion: normal Post-procedure neurological function: normal Post-procedure range of motion: normal Patient tolerance: patient tolerated the procedure well with no immediate complications Procedural Sedation Date/Time: 08/22/2023 11:28 AM Performed by: Joyce Espinosa MD Authorized by: Joyce Espinosa MD Written consent: obtained Timeout performed at: 08/22/2023 4:25 PM Preparation: Patient was prepped and draped in the usual sterile fashion. Local anesthesia used: no Anesthesia: Local anesthesia used: no Patient sedated: yes Sedation plan: minimal ASA Classification: class 1 - normal, healthy patient Mallampati Classification: I - soft palate, uvula, fauces, pillars visible Pre-Sedation Assessment date/time: 08/22/2023 3:45 PM ASA Status unchanged immediately prior to sedation administration Sedatives: propofol Analgesia: hydromorphone Sedation start date/time: 08/22/2023 4:25 PM Sedation end date/time: 08/22/2023 4:55 PM Vitals: Vital signs were monitored during sedation. Patient tolerance: patient tolerated the procedure well with no immediate complications ED Course / Medical Decision Making: I did personally review Radha's past medical history, surgical history, social history, as well as family history (when relevant). In this case, I also oversaw the her drug management by reviewing her medication list, allergy list, as well as the medications that I prescribed during the ED course and/or recommended as an out-patient (including possible OTC medications such as acetaminophen, NSAIDs , etc). Her past medical problem list included: Active Ambulatory Problems Diagnosis Date Noted No Active Ambulatory Problems Resolved Ambulatory Problems Diagnosis Date Noted No Resolved Ambulatory Problems Past Medical History: Diagnosis Date CVA (cerebral vascular accident) (HCC) Hyperlipidemia ED MEDICATIONS GIVEN: Medications ondansetron (ZOFRAN-ODT) disintegrating tablet 4 mg ( Oral MAR Hold 08/22/23844) Or ondansetron (ZOFRAN) injection 4 mg ( Intravenous MAR Hold 08/22/23844) magnesium hydroxide (MOM) 400 mg/5 mL suspension 2,400 mg ( Oral Automatically Held 08/27/23 0900) polyethylene glycol (MIRALAX) powder 17 g ( Oral Automatically Held 08/27/23 0900) ascorbic acid (vitamin C) (VITAMIN C) tablet 500 mg ( Oral Automatically Held 08/27/23 2100) cholecalciferol (vitamin D3) tablet 1,000 Units ( Oral Automatically Held 08/27/23 2100) DULoxetine (CYMBALTA) DR capsule 20 mg ( Oral Automatically Held 08/25/23 0900) pantoprazole (PROTONIX) EC tablet 40 mg ( Oral Automatically Held 08/27/23 2100) atorvastatin (LIPITOR) tablet 10 mg ( Oral Automatically Held 08/27/23 2100) sucralfate (CARAFATE) tablet 1 g ( Oral Automatically Held 08/27/23 2100) vitamin E capsule 400 Units ( Oral Automatically Held 08/25/23 2100) acetaminophen (TYLENOL) tablet 650 mg ( Oral MAR Hold 08/22/23 0845) methocarbamoL (ROBAXIN) tablet 500 mg ( Oral MAR Hold 08/22/23 0845) oxyCODONE (ROXICODONE) immediate release tablet 5 mg ( Oral MAR Hold 08/22/23 0845) naloxone (NARCAN) injection 0.1 mg ( Intravenous MAR Hold 08/22/23 0845) And naloxone (NARCAN) injection 0.4 mg ( Intravenous MAR Hold 08/22/23 0845) HYDROmorphone (DILAUDID) injection 0.5 mg ( Intravenous MAR Hold 08/22/23 0845) lactated Ringers infusion ( Intravenous New Bag 08/22/23 1043) lactated Ringers infusion (has no administration in time range) ondansetron (ZOFRAN) injection 4 mg (has no administration in time range) naloxone (NARCAN) injection 0.1 mg (has no administration in time range) And naloxone (NARCAN) injection 0.4 mg (has no administration in time range) fentaNYL (SUBLIMAZE) inj syringe 25 mcg (has no administration in time range) ceFAZolin (ANCEF) IVPB 2 g (premix) (has no administration in time range) ondansetron (ZOFRAN) injection 4 mg (4 mg Intravenous Given 08/21/23 3587) HYDROmorphone (DILAUDID) injection 0.5 mg (0.5 mg Intravenous Given 08/21/23 1530) metoclopramide (REGLAN) injection 10 mg (10 mg Intravenous Given 08/21/23 1613) propofoL (DIPRIVAN) 10 mg/mL injection - ADS Override Pull ( Override pull for Anesthesia 08/22/23 0947) propofoL (DIPRIVAN) injection (40 mg Intravenous Given 08/21/23 1625) metoclopramide (REGLAN) tablet 5 mg (5 mg Oral Given 08/22/23 0609) ceFAZolin (ANCEF) IVPB 2 g (premix) (2,000 mg Intravenous Given 08/22/23 0941) After reviewing the items above, I did look at previous medical documentation, such as recent hospitalizations, office visits, and/or recent consultations with PCP/specialist. SDOH: Another factor that I considered in Radha's care was her Social Determinants of Health (SDOH). During this ED encounter, she did NOT appear to have any significant issues identified. LAB TESTING: Ancillary lab testing: Leukocytosis, normal electrolyte, normal kidney function. RADIOLOGY: I did consider radiological studies for Rdaha's care today: Displaced right femur shaft fracture. ED COURSE: . MDM EM Caveat - Acuity Because of the acuity of the patient's condition and potential for life threatening injury, a complete HPI, PMHx, FHx, SocHx and ROS cannot be obtained, except as has been otherwise documented. HPI, MDM, & ED COURSE: 83-year-old female with a history of hyperlipidemia and CVA on Plavix and aspirin presents the ED for leg pain after ground-level fall. The patient is hemodynamically stable, afebrile, nontoxic-appearing and in no respiratory distress on initial assessment. GCS 15, airway intact, breathing sounds are clear bilaterally, pulses normal. Exam with the right leg is externally rotated and shortened and knee is flexed. There is a pain with movement or patient. Decreased range of motion secondary to pain. Distal neurovascular intact. X-ray demonstrated oblique displaced femur shaft fracture. To obtain contents, fracture was reduced with under the procedure sedation. (Please see the procedure note) The patient was evaluated with the trauma surgeons as a level 2 alert. Strict ATLS guidelines were followed. Strict C-Spine Immobilization was maintained. Imaging was ordered by the trauma service, unless otherwise specified. The trauma service will direct further diagnostic studies and therapies; initial diagnoses listed here may not include findings from additional testing. In the meantime, I have placed a bed request for the patient and will assist in caring for the patient while they remain in the ED. _ Clinical Impression: 1. Closed displaced oblique fracture of shaft of right femur, initial encounter ([facility]) Disposition: ED Disposition ED Disposition Hospitalize Condition -- Comment Reason for inpatient over two midnights: surgery New Prescriptions This print group is not available in inpatient encounters. Please contact a powertrain control systems engineer. Joyce Espinosa MD ED Attending Physician [facility] Joyce Espinosa MD 08/22/[address] Pt to CT Xray at bedside. 1 L NaCl hung PSA GETTING VITALS AT THIS TIME. PT CAME FROM HOME, BROUGHT BY EMS. PT FELL TRIPPED ON RUG, (+)PLAVIX, (-) LOC, DEFORMITY TO FEMUR, GIVEN ZOFRAN 4 MG, C COLLAR PLACED ON ARRIVAL. Bed: 07 Expected date: Expected time: Means of arrival: Comments: [place] Trauma Activation Level: II Time of actvation: 1423 89 y.o. Unknown Credit Collections Clerk: [facility] ED Attending Physician: DR. ESPINOSA documented in this encounter [facility] 08-21-2023 Physician Emergency department Note Associated Order(s): Orthopedic Injury Treatment; Procedural Sedation [facility] PERIOP ATTENDING NOTE: NAME: Radha Baldwin CSN: [id number] 83 y.o. PCP: Jena, Physician History: Chief Complaint: Fall HPI: The history was obtained from the patient and EMS. Radha is a 83 y.o. female who presents to ED by ambulance with a chief complaint of Fall. Patient has past medical history of stroke on aspirin and Plavix. The patient tripped and fell at home. She denies head injury or LOC. Patient reports right leg pain. Denies any other injury or pain at this time. Patient has surgical history of the right hip replacement. PMHx: Past Medical History: Diagnosis Date CVA (cerebral vascular accident) (HCC) Hyperlipidemia PMSx: Past Surgical History: Procedure Laterality Date right hip replacement FAM. Hx: History reviewed. No pertinent family history. SOC. Hx: Social History Socioeconomic History Marital status: Tobacco Use Smoking status: Never Smokeless tobacco: Never Substance and Sexual Activity Alcohol use: Never Drug use: Never Sexual activity: Not Currently Social Determinants of Health Food Insecurity: No Food Insecurity (08/21/2023) Hunger Vital Sign Worried About Running Out of Food in the Last Year: Never true Ran Out of Food in the Last Year: Never true Transportation Needs: No Transportation Needs (08/21/2023) PRAPARE - Transportation Lack of Transportation (Medical): No Lack of Transportation (Non-Medical): No Housing Stability: Low Risk (08/21/2023) Housing Stability Vital Sign Unable to Pay for Housing in the Last Year: No Number of Places Lived in the Last Year: 1 Unstable Housing in the Last Year: No MEDs: Previous Medications Medication Sig acetaminophen (Tylenol Arthritis Pain) 650 MG CR tablet Take 2 (two) tablets (1,300 mg total) by mouth 2 (two) times a day . ascorbic acid, vitamin C, (ascorbic acid with marcell hips) 500 MG tablet Take 1 (one) tablet (500 mg total) by mouth 2 (two) times a day . aspirin 81 MG EC tablet Take 1 (one) tablet (81 mg total) by mouth daily . BIOTIN ORAL Take 1 capsule by mouth daily . cholecalciferol, vitamin D3, 25 mcg (1,000 unit) capsule Take 1 (one) capsule (1,000 Units total) by mouth 2 (two) times a day . clopidogreL (PLAVIX) 75 mg tablet Take 1 (one) tablet (75 mg total) by mouth daily . DULoxetine (CYMBALTA) 20 MG capsule Take 1 (one) capsule (20 mg total) by mouth daily . fluticasone propionate (FLONASE) 50 mcg/actuation nasal spray Instill 1 (one) spray into each nostril daily as needed for allergies . nitroGLYCERIN (NITROSTAT) 0.[address] 1 (one) tablet (0.4 mg total) under the tongue every 5 (five) minutes as needed for chest pain . pantoprazole (PROTONIX) 40 MG tablet Take 1 (one) tablet (40 mg total) by mouth 2 (two) times a day . rosuvastatin (CRESTOR) 5 MG tablet Take 1 (one) tablet (5 mg total) by mouth every night at bedtime . scopolamine (TRANSDERM-SCOP) 1 mg over [address] 1.5 patches on the skin every 72 hours As needed for travel . senna-docusate (SENNA-S) 8.6-50 mg Take 1 (one) tablet by mouth daily . sucralfate (CARAFATE) 1 gram tablet Take 1 (one) tablet (1 g total) by mouth 4 (four) times a day . vitamin E 400 UNIT capsule Take 1 (one) capsule (400 Units total) by mouth 2 (two) times a day . ALL: Allergies Allergen Reactions Codeine GI Intolerance Fentanyl Itching Penicillins Unknown ROS: Review of Systems Positives and pertinent negatives as per HPI. All other systems were reviewed and are negative. Physical Exam: Patient Vitals for the past 24 hrs: BP Temp Temp src Pulse Resp SpO2 Height Weight 08/22/23 1120 (!) 161/78 -- -- 78 16 97 % -- -- 08/22/23 1117 (!) 166/53 97.3 F (36.3 C) Infrared 78 16 99 % -- -- 08/22/23 0448 126/69 98.2 F (36.8 C) Oral 99 16 95 % -- -- 08/22/23 0345 -- -- -- -- 16 -- -- -- 08/22/23 0311 -- -- -- -- 16 -- -- -- 08/22/23 0030 -- -- -- -- 16 -- -- -- 08/22/23 0001 -- -- -- -- 16 -- -- -- 08/21/23 2350 (!) 161/71 99.6 F (37.6 C) Oral (!) 105 16 93 % -- -- 08/21/232114 -- -- -- -- 16 -- -- -- 08/21/232013 -- -- -- -- 16 -- -- -- 08/21/232009 133/62 98.1 F (36.7 C) Oral 90 16 92 % -- -- 08/21/23 1800 -- -- -- -- -- -- 5' 58.1 kg (128 lb) 08/21/23 1710 (!) 144/75 97.7 F (36.5 C) Oral 88 16 93 % -- -- 08/21/23 1646 139/60 -- -- 80 14 99 % -- -- 08/21/23 1640 (!) 144/64 -- -- 83 13 100 % -- -- 08/21/23 1631 118/80 -- -- 79 (!) 21 100 % -- -- 08/21/23 1626 94/72 -- -- 81 (!) 19 100 % -- -- 08/21/23 1623 (!) 141/93 -- -- 82 18 98 % -- -- 08/21/23 1621 (!) 148/82 -- -- 81 (!) 36 100 % -- -- 08/21/23 1602 (!) 153/87 -- -- 87 16 100 % -- -- 08/21/23 1530 -- -- -- -- 16 -- -- -- 08/21/23 1515 (!) 171/84 -- -- 77 13 99 % -- -- 08/21/23 1500 (!) 177/94 -- -- 84 13 100 % -- -- 08/21/23 1453 (!) 181/73 -- -- 82 13 92 % -- -- 08/21/23 1453 -- -- -- -- -- -- -- 57.7 kg (127 lb 3.3 oz) 08/21/23 1435 (!) 168/83 -- -- -- -- -- -- -- 08/21/23 1434 -- -- -- 79 16 -- -- -- 08/21/23 1434 -- 97.8 F (36.6 C) Oral -- -- -- -- -- 08/21/23 1432 -- -- -- -- -- 95 % -- -- Physical Exam Vitals and nursing note reviewed. Constitutional: General: She is awake. Appearance: Normal appearance. HENT: Head: Normocephalic and atraumatic. Nose: Nose normal. Eyes: General: Lids are normal. No scleral icterus. Cardiovascular: Rate and Rhythm: Normal rate and regular rhythm. Pulses: Normal pulses. Heart sounds: Normal heart sounds. No murmur heard. Musculoskeletal: General: Tenderness, deformity and signs of injury present. Right lower leg: No swelling. No edema. Left lower leg: No swelling. No edema. Comments: Rt leg externally rotated and shortened. Knee flexed. Pain with movement/tenderness Pulmonary: Effort: Pulmonary effort is normal. No respiratory distress. Breath sounds: Normal breath sounds. No decreased breath sounds, wheezing, rhonchi or rales. Skin: General: Skin is warm and dry. Neurological: General: No focal deficit present. Mental Status: She is alert and oriented to person, place, and time. Laboratory & Radiological Imaging (if done): Labs Reviewed CBC - Abnormal; Notable for the following components: Result Value WBC 15.30 (*) RBC 3.67 (*) Hemoglobin 11.8 (*) All other components within normal limits BASIC METABOLIC PANEL - Abnormal; Notable for the following components: Glucose 147 (*) BUN/Creatinine Ratio 31.9 (*) All other components within normal limits Narrative: [facility] has implemented the eGFR calculation approach that does not have a coefficient for race that conforms to the NKF-ASN Task Force Recommendations. POC VENOUS BLOOD GAS PANEL-PULM - RALS - Abnormal; Notable for the following components: pH, Venous 7.49 (*) pCO2, Jabari 32.7 (*) Base Excess, Jabari 2.2 (*) Ionized Calcium 4.3 (*) O2 Sat, Jabari 80.6 (*) Carboxyhemoglobin 1.9 (*) Glucose 144 (*) All other components within normal limits MRSA DNA AMPLIFIED PROBE OBTAIN VENOUS BLOOD GASES AND PERFORM ALCOHOL, MEDICAL VITAMIN D, TOTAL, 25-OH TYPE AND SCREEN ABORH VERIFICATION XR Femur Right 2+ Views (Standard) Final Result Successful closed reduction of the now minimally displaced fracture of the right femoral mid diaphysis. Workstation ID: [id number] CT Cervical Spine Without Contrast Final Result No acute traumatic injury. Workstation ID: [id number] CT Head Or Brain Without Contrast Final Result 1. No acute infarct, hemorrhage or acute intracranial injury. 2. No skull fractures. 3. Stable atrophic, chronic microvascular ischemic changes as well as scattered old lacunar infarcts. KKV/tde Workstation ID: [id number] XR Pelvis 1 View (Standard) Final Result There is no acute posttraumatic abnormality in the pelvis. Workstation ID: [id number] XR Femur Right 2+ Views (Standard) Final Result 1. There is an acute, oblique, mid diaphyseal fracture of the right femur with moderate to severe displacement and over riding of fracture fragments and mild angulation. Workstation ID: [id number] XR Chest 1 View Final Result No acute cardiopulmonary process. ST/ads Workstation ID: [id number] US ED Fast Scan (Results Pending) XR OR Femur Right 2+ Views (Results Pending) Procedures: Orthopedic Injury Treatment Date/Time: 08/21/2023 4:00 PM Performed by: Joyce Espinosa MD Authorized by: Joyce Espinosa MD Injury location: upper leg Location details: right upper leg Injury type: fracture-dislocation Pre-procedure neurovascular assessment: neurovascularly intact Pre-procedure distal perfusion: normal Pre-procedure neurological function: normal Pre-procedure range of motion: normal Local anesthesia used: no Anesthesia: Local anesthesia used: no Patient sedated: yes Sedation plan: moderate ASA Classification: class 1 - normal, healthy patient Mallampati Classification: I - soft palate, uvula, fauces, pillars visible Pre-Sedation Assessment date/time: 08/22/2023 3:45 PM ASA Status unchanged immediately prior to sedation administration Sedatives: propofol Analgesia: hydromorphone Sedation start date/time: 08/22/2023 4:25 PM Sedation end date/time: 08/22/2023 4:55 PM Vitals: Vital signs were monitored during sedation. Manipulation performed: yes Skeletal traction used: yes Reduction successful: yes X-ray confirmed reduction: yes Immobilization: splint Splint type: long leg Supplies used: Ortho-Glass Post-procedure neurovascular assessment: post-procedure neurovascularly intact Post-procedure distal perfusion: normal Post-procedure neurological function: normal Post-procedure range of motion: normal Patient tolerance: patient tolerated the procedure well with no immediate complications Procedural Sedation Date/Time: 08/22/2023 11:28 AM Performed by: Joyce Espinosa MD Authorized by: Joyce Espinosa MD Written consent: obtained Timeout performed at: 08/22/2023 4:25 PM Preparation: Patient was prepped and draped in the usual sterile fashion. Local anesthesia used: no Anesthesia: Local anesthesia used: no Patient sedated: yes Sedation plan: minimal ASA Classification: class 1 - normal, healthy patient Mallampati Classification: I - soft palate, uvula, fauces, pillars visible Pre-Sedation Assessment date/time: 08/22/2023 3:45 PM ASA Status unchanged immediately prior to sedation administration Sedatives: propofol Analgesia: hydromorphone Sedation start date/time: 08/22/2023 4:25 PM Sedation end date/time: 08/22/2023 4:55 PM Vitals: Vital signs were monitored during sedation. Patient tolerance: patient tolerated the procedure well with no immediate complications ED Course / Medical Decision Making: I did personally review Radha's past medical history, surgical history, social history, as well as family history (when relevant). In this case, I also oversaw the her drug management by reviewing her medication list, allergy list, as well as the medications that I prescribed during the ED course and/or recommended as an out-patient (including possible OTC medications such as acetaminophen, NSAIDs , etc). Her past medical problem list included: Active Ambulatory Problems Diagnosis Date Noted No Active Ambulatory Problems Resolved Ambulatory Problems Diagnosis Date Noted No Resolved Ambulatory Problems Past Medical History: Diagnosis Date CVA (cerebral vascular accident) (HCC) Hyperlipidemia ED MEDICATIONS GIVEN: Medications ondansetron (ZOFRAN-ODT) disintegrating tablet 4 mg ( Oral MAR Hold 08/22/23 0845) Or ondansetron (ZOFRAN) injection 4 mg ( Intravenous MAR Hold 08/22/23 0845) magnesium hydroxide (MOM) 400 mg/5 mL suspension 2,400 mg ( Oral Automatically Held 08/27/23 0900) polyethylene glycol (MIRALAX) powder 17 g ( Oral Automatically Held 08/27/23 0900) ascorbic acid (vitamin C) (VITAMIN C) tablet 500 mg ( Oral Automatically Held 08/27/23 2100) cholecalciferol (vitamin D3) tablet 1,000 Units ( Oral Automatically Held 08/27/23 2100) DULoxetine (CYMBALTA) DR capsule 20 mg ( Oral Automatically Held 08/25/23 0900) pantoprazole (PROTONIX) EC tablet 40 mg ( Oral Automatically Held 08/27/23 2100) atorvastatin (LIPITOR) tablet 10 mg ( Oral Automatically Held 08/27/23 2100) sucralfate (CARAFATE) tablet 1 g ( Oral Automatically Held 08/27/23 2100) vitamin E capsule 400 Units ( Oral Automatically Held 08/25/23 2100) acetaminophen (TYLENOL) tablet 650 mg ( Oral MAR Hold 08/22/23 0845) methocarbamoL (ROBAXIN) tablet 500 mg ( Oral MAR Hold 08/22/23 0845) oxyCODONE (ROXICODONE) immediate release tablet 5 mg ( Oral MAR Hold 08/22/23 0845) naloxone (NARCAN) injection 0.1 mg ( Intravenous MAR Hold 08/22/23 0845) And naloxone (NARCAN) injection 0.4 mg ( Intravenous MAR Hold 08/22/23 0845) HYDROmorphone (DILAUDID) injection 0.5 mg ( Intravenous MAR Hold 08/22/23 0845) lactated Ringers infusion ( Intravenous New Bag 08/22/23 1043) lactated Ringers infusion (has no administration in time range) ondansetron (ZOFRAN) injection 4 mg (has no administration in time range) naloxone (NARCAN) injection 0.1 mg (has no administration in time range) And naloxone (NARCAN) injection 0.4 mg (has no administration in time range) fentaNYL (SUBLIMAZE) inj syringe 25 mcg (has no administration in time range) ceFAZolin (ANCEF) IVPB 2 g (premix) (has no administration in time range) ondansetron (ZOFRAN) injection 4 mg (4 mg Intravenous Given 08/21/23 1457) HYDROmorphone (DILAUDID) injection 0.5 mg (0.5 mg Intravenous Given 08/21/23 1530) metoclopramide (REGLAN) injection 10 mg (10 mg Intravenous Given 08/21/23 1613) propofoL (DIPRIVAN) 10 mg/mL injection - ADS Override Pull ( Override pull for Anesthesia 08/22/23 0947) propofoL (DIPRIVAN) injection (40 mg Intravenous Given 08/21/23 1625) metoclopramide (REGLAN) tablet 5 mg (5 mg Oral Given 08/22/23 0609) ceFAZolin (ANCEF) IVPB 2 g (premix) (2,000 mg Intravenous Given 08/22/23 0941) After reviewing the items above, I did look at previous medical documentation, such as recent hospitalizations, office visits, and/or recent consultations with PCP/specialist. SDOH: Another factor that I considered in Radha's care was her Social Determinants of Health (SDOH). During this ED encounter, she did NOT appear to have any significant issues identified. LAB TESTING: Ancillary lab testing: Leukocytosis, normal electrolyte, normal kidney function. RADIOLOGY: I did consider radiological studies for Radha's care today: Displaced right femur shaft fracture. ED COURSE: . MDM EM Caveat - Acuity Because of the acuity of the patient's condition and potential for life threatening injury, a complete HPI, PMHx, FHx, SocHx and ROS cannot be obtained, except as has been otherwise documented. HPI, MDM, & ED COURSE: 83-year-old female with a history of hyperlipidemia and CVA on Plavix and aspirin presents the ED for leg pain after ground-level fall. The patient is hemodynamically stable, afebrile, nontoxic-appearing and in no respiratory distress on initial assessment. GCS 15, airway intact, breathing sounds are clear bilaterally, pulses normal. Exam with the right leg is externally rotated and shortened and knee is flexed. There is a pain with movement or patient. Decreased range of motion secondary to pain. Distal neurovascular intact. X-ray demonstrated oblique displaced femur shaft fracture. To obtain contents, fracture was reduced with under the procedure sedation. (Please see the procedure note) The patient was evaluated with the trauma surgeons as a level 2 alert. Strict ATLS guidelines were followed. Strict C-Spine Immobilization was maintained. Imaging was ordered by the trauma service, unless otherwise specified. The trauma service will direct further diagnostic studies and therapies; initial diagnoses listed here may not include findings from additional testing. In the meantime, I have placed a bed request for the patient and will assist in caring for the patient while they remain in the ED. _ Clinical Impression: 1. Closed displaced oblique fracture of shaft of right femur, initial encounter ([facility]) Disposition: ED Disposition ED Disposition Hospitalize Condition -- Comment Reason for inpatient over two midnights: surgery New Prescriptions This print group is not available in inpatient encounters. Please contact a powertrain control systems engineer. Joyce Espinosa MD ED Attending Physician [facility] Joyce Espinosa MD 08/22/23 1131 [facility] 08-21-2023 Emergency department Note Pt back from CT [facility] 08-21-2023 Emergency department Note Pt to CT [facility] 08-21-2023 Note Formatting of this n ote might be different from the original. TRAUMA, CRITICAL CARE, AND ACUTE CARE SURGERY STAFF PHYSICIAN NOTE OF PERSONAL INVOLVEMENT IN CARE: Please link this note as an addendum to the MELISA note with the same day of service. The patient was seen and examined by me, the attending trauma surgeon, on multidisciplinary rounds on the date of service listed above. I have reviewed the MELISA note, labs, studies, and oracle ascp consultant notes. I have reviewed and agree with the documented history, exam, and plan of care, with the following additions and corrections: Radha Baldwin is a 83 y.o. female presenting as Category 2 trauma following a mechanical fall from standing, patient tripped. She is on aspirin and Plavix for history of stroke. On physical examination GCS is 15, he is neurovascularly intact, she is hemodynamically stable. Patient has complaints of right femoral pain with the right lower extremity externally rotated and shortened. Patient also with right knee pain. She states that she fell onto her right knee. Patient has no other complaints, she denies loss of consciousness. Imaging in the trauma bay obtained with R femur fx, will place in traction. Further imaging without further findings. This was a fx due to combination of osteopenia and trauma that alone would not have caused the fracture. Will consult osteoporosis management and check Vit D. Obtained labs and imaging personally reviewed with evidence of R femur fx. Our plan for this patient will be admit to trauma, ortho eval, traction. Pt evaluated at bedside at 1438 on 08/21/23. Admitted with these risk variables:None. Please see assessment and plan for further details. Deric Beck MD, FACS, DABS, DABA Trauma, Acute Care Surgery, Surgical Critical Care, and Neurocritical Care [facility] Work Phone: 08-21-2023 Emergency department Note Xray at bedside. [facility] 08-21-2023 Emergency department Note 1 L NaCl hung [facility] 08-21-2023 Emergency department Note PSA GETTING VITALS AT THIS TIME. [facility] 08-21-2023 Emergency department Triage note PT CAME FROM HOME, BROUGHT BY EMS. PT FELL TRIPPED ON RUG, (+)PLAVIX, (-) LOC, DEFORMITY TO FEMUR, GIVEN ZOFRAN 4 MG, C COLLAR PLACED ON ARRIVAL. [facility] 08-21-2023 Emergency department Note Bed: 07 Expected date: Expected time: Means of arrival: Comments: neida [facility] 08-21-2023 Emergency department Note Trauma Activation Level: II Time of actvation: 1423 89 y.o. Unknown Credit Collections Clerk: [facility] ED Attending Physician: DR. ESPINOSA [facility] 08-17-2023 Note HNO ID: [id number] Author: OSWALD HALL RT(R) Service: ? Author Type: Technologist Type: Progress Notes Filed: 08/17/2023 13:46 Note Text: Radiology Service Progress Note PATIENT NAME: Radha Baldwin DATE OF SERVICE: August 17, 2023 TIME: [...] PERIPHERAL IV DATA: Not applicable SIGNED BY: Oswald Hall, RT(R) August 17, 2023 1:33 PM [facility] 08-14-2023 Note HNO ID: [id number] Author: JULIETH ESQUIVEL APRN.ADVERTISING COLUMNIST Service: ? Author Type: Nurse Practitioner Type: Progress Notes Filed: 08/14/2023 13:48 Note Text: Subjective HPI HPI Radha Baldwin is a 83 year old female who [...] Date CVA (cerebral vascular accident) (HCC) 06/02/2017 [facility] acute ischemic right posterior putamen stroke on MRI ASA, Plavix atorvastatin. Follow up with Dr. Witt scheduled. 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 May 2017; treated at [facility] Irritable bowel syndrome Osteoporosis, unspecified Stroke (HCC) Thoracic or lumbosacral neuritis or radiculitis, unspecified Unspecified constipation Constipation I have confirmed and edited as necessary, the [facility] Review of Systems Constitutional: Negative for chills [...] detail warranting prompt ER evaluation. Julieth Esquivel APRN.[facility] 07-21-2023 Instructions Jonny Torres MD - 07/21/2023 12:15 AM EST BONE MINERAL DENSITY PATIENT INSTRUCTIONS ======== Bone mineral density testing measures the amount [...] usual activities immediately. documented in this encounter [facility] 07-20-2023 Note HNO ID: [id number] Author: Jonny Torres MD Service: ? Author Type: Physician Type: Progress Notes Filed: 07/21/2023 12:19 AM Note Text: This note was created using [employer]. Subjective Radha Baldwin is a 83 year old female. Patient presents with: F/U 6 months: cholesterol SUBJECTIVE: Radha Baldwin is a 83 year old year old lady here today for 6 month follow up appointment for review of medical conditions. Gets achy and mostly takes Tylenol. If really bad, needs naproxen. Doing well on current meds. Noted that Crestor pill is really tiny. See assessment and plan for other issues addressed. PAST MEDICAL HISTORY Diagnosis Date CVA (cerebral vascular accident) (HCC) 06/02/2017 [facility] acute ischemic right posterior putamen stroke on MRI ASA, Plavix atorvastatin. Follow up with Dr. Witt scheduled. 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 May 2017; treated at [facility] Irritable bowel syndrome Osteoporosis, unspecified Stroke ([facility]) Thoracic or lumbosacral neuritis or radiculitis, unspecified [...] (FLONASE) 50 mcg/actuation nasal spray Use 1 Sibley in each nostril once daily. For allergy [...] 7.0 6.8 6. (more content not included)... [facility] 07-20-2023 History of Present illness Narrative This note was created using [employer]. Subjective Radha Baldwin is a 83 year old female. Patient presents with: F/U 6 months: cholesterol SUBJECTIVE: Radha Baldwin is a 83 year old year old lady here today for 6 month follow up appointment for review of medical conditions. Gets achy and mostly takes Tylenol. If really bad, needs naproxen. Doing well on current meds. Noted that Crestor pill is really tiny. See assessment and plan for other issues addressed. PAST MEDICAL HISTORY Diagnosis Date CVA (cerebral vascular accident) (HCC) 06/02/2017 [facility] acute ischemic right posterior putamen stroke on MRI ASA, Plavix atorvastatin. Follow up with Dr. Witt scheduled. 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 May 2017; treated at [facility] Irritable bowel syndrome Osteoporosis, unspecified Stroke [...] (FLONASE) 50 mcg/actuation nasal spray Use 1 Sibley in each nostril once daily. For allergy [...] Density machine was getting [facility] Jonny Torres MD documented in this encounter [facility] 07-13-2023 Miscellaneous Notes 1st report of treatment/non oncology regimen. No assistance to support Reclast drug. No further assistance from FN at this time. documented in this encounter [facility] 07-13-2023 Miscellaneous Notes Order filed and appointment scheduled already documented in this encounter [facility] 07-08-2023 Miscellaneous Notes Spoke with pt and [...] update. Thank you. documented in this encounter [facility] 06-11-2023 Note HNO ID: [id number] Author: Jonny Torres MD Service: ? Author Type: Physician Type: Progress Notes Filed: 06/11/2023 1:06 PM Note Text: I think I filed order Correct me if wrong [facility] 06-08-2023 Miscellaneous Notes Patient has been identified [...] you. EVAN Vee. documented in this encounter [facility] 02-23-2023 Miscellaneous Notes The following approved medication requests have been transmitted electronically. Requested Prescriptions Signed Prescriptions Disp Refills DULoxetine (CYMBALTA) 20 mg capsule 30 capsule 5 Sig: Take 1 capsule by mouth once daily. Authorizing Provider: JONNY TORRES MD Last office visit: 01/12/23 Next appointment scheduled: 07/20/23 Patient phones requesting refills as follows: Requested Prescriptions Pending Prescriptions Disp Refills DULoxetine (CYMBALTA) 20 mg capsule 30 capsule 5 Sig: Take 1 capsule by mouth once daily. Please review and advise. Donna Donis LPN documented in this encounter [facility] 01-12-2023 Note HNO ID: [id number] Author: Jonny Torres MD Service: ? Author Type: Physician Type: Progress Notes Filed: 02/10/2023 9:05 PM Note Text: This note was created using [employer]. Subjective Radha Baldwin is a 82 year old female. 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 Follow up with Dr. Witt scheduled. 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 May 2017; treated at [facility] Irritable bowel syndrome Osteoporosis, unspecified Stroke [...] (FLONASE) 50 mcg/actuation nasal spray Use 1 Sibley in each nostril once daily. For allergy [...] delayed healing, goodwin (more content not included)... [facility] 01-12-2023 Instructions Jonny Torres MD - 01/12/2023 3:44 PM EDT Consider Theraworx for leg cramps. documented in this encounter [facility] 01-12-2023 History of Present illness Narrative This note was created using [employer]. Subjective Radha Baldwin is a 82 year old female. 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 Follow up with Dr. Witt scheduled. 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 May 2017; treated at [facility] Irritable bowel syndrome Osteoporosis, unspecified Stroke ([facility]) Thoracic or lumbosacral neuritis or radiculitis, unspecified [...] (FLONASE) 50 mcg/actuation nasal spray Use 1 Sibley in each nostril once daily. For allergy [...] and regular exercise and adequate sleep. Jonny Torres MD documented in this encounter [facility] 12-17-2022 Miscellaneous Notes Last office visit: 05/23/22 Next appointment scheduled: 01/12/23 Patient phones requesting refills as follows: Requested Prescriptions Pending Prescriptions Disp Refills pantoprazole DR (PROTONIX) 40 mg tablet 60 tablet 11 Sig: Take 1 tablet by mouth twice daily. Take on empty stomach, 1/2 hr before meal. Please review and advise. Donna Donis LPN documented in this encounter [facility] 12-02-2022 Miscellaneous Notes Last office visit: 05/23/22 Next appointment scheduled: 01/12/23 Last labs: 03/14/22 last LIPID Patient phones requesting refills as follows: Requested Prescriptions Pending Prescriptions Disp Refills atorvastatin (LIPITOR) 20 mg tablet 30 tablet 11 Sig: Take 1 tablet by mouth once daily. Please review and advise. Donna Donis LPN documented in this encounter [facility] 09-01-2022 Miscellaneous Notes BLANCA: 05/23/2022 Last refill: [...] Marcia Bradley Pss documented in this encounter [facility] 07-07-2022 Miscellaneous Notes Completed. PSS - please add lab appt on for 2:30 today (stat CMP)- patient is aware to come in at 2:30 for labs and 3:30 for treatment. documented in this encounter [facility] 06-17-2022 Nurse Note Denies itching, alert and [...] left side comfortably. documented in this encounter [facility] 06-17-2022 History and physical note Images from the original note were not included. HISTORY AND PHYSICAL Radha De Leon Adam 1940 REFERRING PHYSICIAN: Sandi Lara APRN.ELECTRICIAN HELPER POWERHOUSE CHIEF COMPLAINT: Consult (GERD, constipation, bloating) HPI: [...] CVA, IBS, radiculitis. Patient follows with Dr. Torres in primary care. Patient denies chest pain, shortness of breath or recent hospitalizations. Denies problems with sedation in the past. PAST MEDICAL HISTORY PAST MEDICAL HISTORY Diagnosis Date CVA (cerebral vascular accident) (HCC) 06/02/2017 [facility] acute ischemic right posterior putamen stroke on MRI ASA, Plavix atorvastatin. Follow up with Dr. Witt scheduled. 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 May 2017; treated at [facility] Irritable bowel syndrome Osteoporosis, unspecified Thoracic [...] (FLONASE) 50 mcg/actuation nasal spray Use 1 Sibley in each nostril once daily. For allergy [...] entered by the nurse and reviewed by ms Nursing Notes: Darlin Dupree LPN 04/08/2022 2:51 [...] patient was offered a surgery/procedure at a [facility] facility. I have counseled the patient regarding [...] Desiree Huang PA-C documented in this encounter [facility] 06-09-2022 Miscellaneous Notes Please schedule reclast infustion, she has an active order. documented in this encounter [facility] 05-23-2022 Instructions Jonny Torres MD - 05/23/2022 3:25 PM EDT May stop Effexor and start Cymbalta but if any issues feeling like not enough med, can overlap Effexor and Cymbalta for 3 to 7 days. documented in this encounter [facility] 05-23-2022 History of Present illness Narrative This note was created using [employer]. Subjective Radha Baldwin is a 82 year old female. 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 Follow up with Dr. Witt scheduled. 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 May 2017; treated at [facility] Irritable bowel syndrome Osteoporosis, unspecified Thoracic or lumbosacral neuritis or radiculitis, unspecified Unspecified constipation Constipation Current Outpatient Medications Medication Sig pantoprazole (PROTONIX) 40 mg tablet Take 1 tablet [...] (FLONASE) 50 mcg/actuation nasal spray Use 1 Sibley in each nostril once daily. For allergy [...] and regular exercise and adequate sleep. Jonny Torres MD documented in this encounter [facility] 04-09-2022 History of Present illness Narrative HISTORY AND PHYSICAL Radha De Leon Adam 1940 REFERRING PHYSICIAN: Sandi Lara APRN.ELECTRICIAN HELPER POWERHOUSE CHIEF COMPLAINT: Consult (GERD, constipation, bloating) HPI: [...] CVA, IBS, radiculitis. Patient follows with Dr. Torres in primary care. Patient denies chest pain, shortness of breath or recent hospitalizations. Denies problems with sedation in the past. PAST MEDICAL HISTORY Diagnosis Date CVA (cerebral vascular accident) (HCC) 06/02/2017 [facility] acute ischemic right posterior putamen stroke on MRI ASA, Plavix atorvastatin. Follow up with Dr. Witt scheduled. 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 May 2017; treated at [facility] Irritable bowel syndrome Osteoporosis, unspecified Thoracic [...] (FLONASE) 50 mcg/actuation nasal spray Use 1 Sibley in each nostril once daily. For allergy [...] entered by the nurse and reviewed by ms Nursing Notes: Darlin Dupree LPN 04/08/2022 2:51 [...] patient was offered a surgery/procedure at a [facility] facility. I have counseled the patient regarding [...] Desiree Huang PA-C documented in this encounter [facility] 04-08-2022 Nurse Note REVIEW OF SYSTEMS: General: [...] Darlin Dupree LPN documented in this encounter [facility] 03-20-2022 History of Present illness Narrative Prefers Dr Jackson documented in this encounter [facility] 02-19-2022 History of Present illness Narrative VIRTUAL VISIT PROGRESS NOTE This is a virtual visit using [employer] video visit. It required patient-provider interaction for the medical decision making as documented below. Radha Baldwin is a 81 year old female seen for COVID concern. Today: Started not feeling well yesterday. Had a dull headache. Dry cough, runny nose. Fatigued. Home COVID test was positive this morning. The entire choir at her [employer] has been positive. No fever. Cough is mild. Tylenol has been helping her sx. 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 Follow up with Dr. Witt scheduled. 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 May 2017; treated at [facility] Irritable bowel syndrome Osteoporosis, unspecified Thoracic [...] (FLONASE) 50 mcg/actuation nasal spray Use 1 Sibley in each nostril once daily. For allergy [...] change, may consider antiviral treatment. Janett Peacock APRN.ADVERTISING COLUMNIST documented in this encounter [facility] 02-03-2022 Miscellaneous Notes Schedule with gastroenterology if so desires. Consider H2 sera, CT abd/pelvis if not feeling improved. documented in this encounter [facility] 01-16-2022 History of Present illness Narrative Radiology Service Progress Note PATIENT NAME: Radha Baldwin DATE OF SERVICE: January 16, 2022 TIME: [...] 2022 2:42 PM documented in this encounter [facility] 01-14-2022 Instructions Sandi Lara APRN.CNS - 01/14/2022 2:18 PM EDT Take pantoprazole twice daily Take carafate before meals and at bedtime Complete RUQ ultrasound documented in this encounter [facility] 01-14-2022 History of Present illness Narrative Images from the original note were not included. SUBJECTIVE: COVID-19 VACCINE(4 - Booster for Moderna series) due on 10/07/2021 HPI Radha Baldwin is a 81 year old female. PMH [...] spinal compression fracture noted and treated at [facility]. Outpatient procedure. MRI was completed at [facility]. Note she has been taking PPI once [...] (FLONASE) 50 mcg/actuation nasal spray Use 1 Sibley in each nostril once daily. 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 Follow up with Dr. Witt scheduled. 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 May 2017; treated at [facility] Irritable bowel syndrome Osteoporosis, unspecified Thoracic [...] 2 weeks consistently. Complete RUQ ultrasound Sandi Lara APRN.CNS Medical Decision Making: Problems: Low: Acute, uncomplicated illness or injury Data: Unique test(s) ordered: 1 Risk: Moderate: Drug management Medical Decision Making Level: 3 - Low documented in this encounter [facility] 12-18-2021 Miscellaneous Notes See MyChart reply Found form through care everywhere, printed and given to DR. Torres Pt wants to make sure provider reviews and comments on this. Contact Amos Garcia with 's message. Pt reports she has been talking to Nikkie at that office. Mikaela Estrella LPN documented in this encounter [facility] 12-03-2021 Instructions Annie Abebe APRN.ADVERTISING COLUMNIST - 12/03/2021 3:20 PM EDT [facility] The [...] when lying down. documented in this encounter [facility] 12-03-2021 History of Present illness Narrative Images from the original note were not included. This note was created using [employer]. Subjective Radha Baldwin is a 81 year old female. 81 [...] history is provided by the patient. No delivery director was used. 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 Follow up with Dr. Witt scheduled. 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 May 2017; treated at [facility] Irritable bowel syndrome Osteoporosis, unspecified Thoracic [...] (FLONASE) 50 mcg/actuation nasal spray Use 1 Sibley in each nostril once daily. For allergy [...] vertebra, unspecified fracture morphology, initial encounter (HCC) - ICD9: 805.2, ICD10: S22.089A Related to fall No red flags RICE RX Prednisone and Flexeril Will follow up with her own ortho, Dr. Fabio Tatum CD and report of imaging copied for patient. - CONSULT TO ORTHOPAEDICS Annie Abebe APRN.ADVERTISING COLUMNIST documented in this encounter [facility] 11-18-2021 History of Present illness Narrative This note was created using [employer]. Subjective Radha Baldwin is a 81 year old female. 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 Follow up with Dr. Witt scheduled. 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 May 2017; treated at [facility] Irritable bowel syndrome Osteoporosis, unspecified Thoracic [...] (FLONASE) 50 mcg/actuation nasal spray Use 1 Sibley in each nostril once daily. For allergy [...] Abs Lymph 1.00 - 4.00 k/uL 1.61 Peach% % 10.0 Abs Peach <0.87 k/uL 0.81 Eosin% % 1.9 Abs [...] PANEL - CBC - MAGNESIUM BLD Jonny Torres MD Medical Decision Making: Problems: Moderate: 2+ stable chronic illnesses Data: Unique test result(s) reviewed: 3+ Unique test(s) ordered: 3+ Risk: Moderate: Drug management Medical Decision Making Level: 4 - Moderate documented in this encounter [facility] 05-14-2021 Miscellaneous Notes Spoke with Spencer (pharmacist) looked at labs, does not need to be redrawn prior to Reclast infusion. Please schedule Reclast and notify pt. Tati Bermudez LPN Patient scheduled and notified. Had labs drawn 05/03-please advise if they need drawn again prior to infusion. 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 Follow up with Dr. Witt scheduled. 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 Follow up with Dr. Witt scheduled. 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 Follow up with Dr. Witt scheduled. 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 Follow up with Dr. Witt scheduled. 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 Follow up with Dr. Witt scheduled. 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 Follow up with Dr. Witt scheduled. 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 Follow up with Dr. Witt scheduled. 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 Follow up with Dr. Witt scheduled. 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 Follow up with Dr. Witt scheduled. 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 Follow up with Dr. Witt scheduled. 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 Follow up with Dr. Witt scheduled. 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 Follow up with Dr. Witt scheduled. 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 Follow up with Dr. Witt scheduled. 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 Follow up with Dr. Witt scheduled. 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 Follow up with Dr. Witt scheduled. 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 Follow up with Dr. Witt scheduled. 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 Follow up with Dr. Witt scheduled. 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 Follow up with Dr. Witt scheduled. 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 Follow up with Dr. Witt scheduled. 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 Follow up with Dr. Witt scheduled. 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 Follow up with Dr. Witt scheduled. Benign neoplasm of skin of l ower limb, including hip 02/28/2008 11/14/2015 Hemangioma of skin and subcutaneous tissue 03/26/2006 11/14/2015 Irritable bowel syndrome 02/2016 documented as of this encounter (statuses as of 02/23/2023) [facility] History of Past illness Narrative* Problem Noted Date Diagnosed Date Resolved Date CVA (cerebral vascular accident) 06/02/2017 07/12/2017 Overview: [facility] acute ischemic right posterior putamen stroke on MRI ASA, Plavix atorvastatin. Follow up with Dr. Witt scheduled. Benign neoplasm of skin of l ower limb, including hip 02/28/2008 11/14/2015 Hemangioma of skin and subcutaneous tissue 03/26/2006 11/14/2015 Irritable bowel syndrome 02/2016 documented as of this encounter (statuses as of 02/24/2023) [facility] History of Past illness Narrative* Problem Noted Date Diagnosed Date Resolved Date CVA (cerebral vascular accident) 06/02/2017 07/12/2017 Overview: [facility] acute ischemic right posterior putamen stroke on MRI ASA, Plavix atorvastatin. Follow up with Dr. Witt scheduled. Benign neoplasm of skin of l ower limb, including hip 02/28/2008 11/14/2015 Hemangioma of skin and subcutaneous tissue 03/26/2006 11/14/2015 Irritable bowel syndrome 02/2016 documented as of this encounter (statuses as of 06/09/2023) [facility] History of Past illness Narrative* Problem Noted Date Diagnosed Date Resolved Date CVA (cerebral vascular accident) 06/02/2017 07/12/2017 Overview: [facility] acute ischemic right posterior putamen stroke on MRI ASA, Plavix atorvastatin. Follow up with Dr. Witt scheduled. 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 Follow up with Dr. Witt scheduled. Benign neoplasm of skin of l ower limb, including hip 02/28/2008 11/14/2015 Hemangioma of skin and subcutaneous tissue 03/26/2006 11/14/2015 Irritable bowel syndrome 02/2016 documented as of this encounter (statuses as of 07/08/2023) [facility] History of Past illness Narrative* Problem Noted Date Diagnosed Date Resolved Date CVA (cerebral vascular accident) 06/02/2017 07/12/2017 Overview: [facility] acute ischemic right posterior putamen stroke on MRI ASA, Plavix atorvastatin. Follow up with Dr. Witt scheduled. 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 Follow up with Dr. Witt scheduled. 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 Follow up with Dr. Witt scheduled. Benign neoplasm of skin of l ower limb, including hip 02/28/2008 11/14/2015 Hemangioma of skin and subcutaneous tissue 03/26/2006 11/14/2015 Irritable bowel syndrome 02/2016 documented as of this encounter (statuses as of 07/21/2023) [facility]* Diagnosis Vitamin D deficiency- Primary Unspecified [...] use of medication [facility] Diagnosis Fall, initial encounter- Primary Upper back pain Acute low back pain, unspecified back pain laterality, unspecified whether sciatica present Closed fracture of eleventh thoracic vertebra, unspecified fracture morphology, initial encounter ([facility]) documented in this encounter [facility]* Diagnosis RUQ abdominal pain- Primary Abdominal pain, right upper quadrant Gastroesophageal reflux disease without esophagitis Esophageal reflux documented in this encounter [facility]* Diagnosis RUQ abdominal pain Abdominal pain, right upper quadrant documented in this encounter [facility]* Diagnosis Constipation, unspecified constipation type- Primary RUQ abdominal pain Abdominal pain, right upper quadrant Gastroesophageal reflux disease without esophagitis Esophageal reflux documented in this encounter [facility]* Diagnosis COVID- Primary documented in this encounter [facility]* Diagnosis Gastroesophageal reflux disease without esophagitis- Primary Esophageal reflux Constipation, unspecified constipation type documented in this encounter [facility]* Diagnosis Abdominal discomfort, generalized- Primary Abdominal pain, generalized Gastroesophageal reflux disease without esophagitis Esophageal reflux Constipation, unspecified constipation type Decreased energy Other malaise and fatigue Change in bowel habits Other symptoms involving digestive system [facility] Diagnosis 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, subsequent encounter- Primary Recurrent major depressive disorder, in remission (HCC) Vitamin D deficiency Unspecified vitamin D deficiency Encounter for immunization Need for other specified prophylactic vaccination against single bacterial disease [facility] Diagnosis Recurrent major depressive disorder, in partial remission (HCC) [F33.41 (ICD-10-CM)]- Primary documented in this encounter [facility]* Diagnosis Iron deficiency anemia, unspecified iron deficiency anemia type- Primary 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, subsequent encounter documented in this encounter [facility]* Diagnosis Recurrent major depressive disorder, in [...] healing, subsequent encounter documented in this encounter [facility]* Diagnosis Iron deficiency anemia, unspecified iron deficiency anemia type- Primary Generalized abdominal pain Abdominal pain, generalized Change in bowel habits Other symptoms involving digestive system Constipation, unspecified constipation type Bloating Flatulence, eructation, and gas pain documented in this encounter [facility] note* Diagnosis Age-related osteoporosis without current pathological fracture- Primary Senile osteoporosis documented in this encounter [facility]* Diagnosis Age-related osteoporosis without current pathological fracture- Primary Senile osteoporosis Recurrent major depressive disorder, in full remission (HCC) Hyperlipidemia, unspecified hyperlipidemia type Vitamin D deficiency Unspecified vitamin D deficiency Encounter for long-term current use of medication Encounter for immunization Need for other specified prophylactic vaccination against single bacterial disease Asymptomatic postmenopausal status documented in this encounter [facility] note* Diagnosis Fall- Primary Unspecified fall Closed displaced oblique fracture of shaft of right femur, initial encounter ([facility]) Closed traumatic displaced fracture of shaft of right femur with routine healing Acute blood loss anemia Acute posthemorrhagic anemia documented in this encounter [facility] for referral (narrative)* Diagnostic Procedure Only (Routine) - Authorized Specialty Diagnoses / Procedures Referred By Richi t Referred To Contact US IMAGING Diagnoses RUQ abdominal pain Procedures US ABD RT UPPER QUADRANT US ABDOMINAL REAL TIME W/IMAGE LIMITED Sandi Lara APRN.CNS [address] [place] [address] Us Imaging Referral ID Status Reason Start Date Expiration Date Visits Requested Visits Authorized [id number] Authorized Auto-Generat ed Referral 01/14/2022 02/13/2023 1 1 [facility] for referral (narrative)* Diagnostic Procedure Only (Routine) - Closed Specialty Diagnoses / Procedures Referred By Contac t Referred To Contact US IMAGING Diagnoses RUQ abdominal pain Procedures US ABD RT UPPER QUADRANT US ABDOMINAL REAL TIME W/IMAGE LIMITED Sandi Lara APRN.CNS [address] [place] [address] Us Imaging Referral ID Status Reason Start Date Expiration Date V isits Requested Visits Authorized [id number] Closed Auto-Generate d Referral 01/14/2022 02/13/2023 1 1 [facility] for referral (narrative)* Outpatient Procedure (Routine) - Closed Specialty Diagnoses / Procedures Referred By Contac t Referred To Contact [facility] Diagnoses Generalized abdominal pain Change in bowel habits Constipation, unspecified constipation type Bloating Procedures EGD DIAGNOSTIC ESOPHAGOGASTRODUODENOSCO PY TRANSORAL DIAGNOSTIC Desiree Huang PA-C [address] [place] [address] [facility] [address] [place] [address] Referral ID Status Reason Start Date Expiration Date V isits Requested Visits Authorized [id number] Closed Auto-Generate d Referral 04/09/2022 04/09/2023 1 1 * Outpatient Procedure (Routine) - Closed Specialty Diagnoses / Procedures Referred By Contac t Referred To Contact [facility] Diagnoses Generalized abdominal pain Change in bowel habits Constipation, unspecified constipation type Bloating Procedures COLONOSCOPY SCREENING COLONOSCOPY FLX DX W/COLLJ SPEC WHEN PFRMD Desiree Huang PA-C [address] [place] [address] [facility] [place] [id number] Referral ID Status Reason Start Date Expiration Date V isits Requested Visits Authorized [id number] Closed Auto-Generate d Referral 04/09/2022 04/09/2023 1 1 [facility] for referral (narrative)* Diagnostic Procedure Only (Routine) - Pending Review Specialty Diagnoses / Procedures Referred By Richi t Referred To Contact XR IMAGING Diagnoses Asymptomatic postmenopausal status Procedures DXA-AXIAL SKELETON WITH VFA DXA BONE DENSITY STUDY AXIAL SKELETON Jonny Torres MD [address] [place] [address] [place] [address] Referral ID Status Reason Start Date Expiration Date Visits Requested Visits Authorized [id number] Pending Review Auto-Generat ed Referral 3 08/19/2024 1 1 [facility] for visit Narrative* Outpatient Procedure (Routine) - Closed Specialty Diagnoses / Procedures Referred By Richi t Referred To Contact [facility] Diagnoses Generalized abdominal pain Change in bowel habits Constipation, unspecified constipation type Bloating Procedures EGD DIAGNOSTIC ESOPHAGOGASTRODUODENOSCO PY TRANSORAL DIAGNOSTIC Desiree Huang PA-C [address] [place] [address] [facility] [address] [place] [address] Referral ID Status Reason Start Date Expiration Date V isits Requested Visits Authorized [id number] Closed Auto-Generate d Referral 04/09/2022 04/09/2023 1 1 [facility] Summary Purpose Family History No Family History Records FoundNo Family History Records FoundNo Family History Records Found Advance Directives No Advanced Directives Records FoundLatest Code Status on File Code Status Date Activated Date Inactivated Comments DNRCC-Arrest 08/22/2023 1:01 PM 08/28/2023 4:32 PM Question Answer Comments Detail: No intubation Code Status History Code Status Date Activated Date Inactivated Comments Full Code 08/21/2023 4:02 PM 08/22/2023 1:01 PM Reason for Referral Specialty Diagnoses / Procedures Referred By Richi t Referred To Contact Orthopedics Diagnoses Fall, initial encounter Closed fracture of eleventh thoracic vertebra, unspecified fracture morphology, initial encounter (HCC) Procedures CONSULT TO ORTHOPAEDICS OFFICE/OUTPATIENT [facility] MDM 60-74 MINUTES Annie Abebe, SONG WRITER.ADVERTISING COLUMNIST [address] [place] [address] Referral ID Status Reason Start Date Expiration Date Visits Requested Visits Authorized [id number] Authorized PCP Requested Referral 12/03/2021 12/03/2022 1 1 Specialty Diagnoses / Procedures Referred By Contac t Referred To Contact XR IMAGING Diagnoses Upper back pain Procedures XR THORACIC LIMITED 2V AP/LAT RADEX SPINE THORACIC 2 VIEWS Annie Abebe, TACO.ADVERTISING COLUMNIST [address] [place] [phone] Xr Imaging Referral ID Status Reason Start Date Expiration Date V isits Requested Visits Authorized [id number] Closed Auto-Generate d Referral 12/03/2021 01/02/2023 1 1 Specialty Diagnoses / Procedures Referred By Contac t Referred To Contact XR IMAGING Diagnoses Acute low back pain, unspecified back pain laterality, unspecified whether sciatica present Procedures XR LUMBAR GENERAL 3V AP/LAT/L5-S1 RADEX SPINE LUMBOSACRAL 2/3 VIEWS Annie Abebe, SONG WRITER.ADVERTISING COLUMNIST [address] [place] [phone] Xr Imaging Referral ID Status Reason Start Date Expiration Date V isits Requested Visits Authorized [id number] Closed Auto-Generate d Referral 12/03/2021 01/02/2023 1 1 Specialty Diagnoses / Procedures Referred By Contac t Referred To Contact Gastroenterology Diagnoses Constipation, unspecified constipation type RUQ abdominal pain Gastroesophageal reflux disease without esophagitis Procedures CONSULT TO GASTROENTEROLOGY OFFICE/OUTPATIENT [facility] 60-74 MINUTES Sandi Lara, SONG WRITER.ELECTRICIAN HELPER POWERHOUSE [address] [place] [phone] Referral ID Status Reason Start Date Expiration Date Visits Requested Visits Authorized [id number] Authorized PCP Requested Referral 02/03/2022 02/03/2023 1 1 Specialty Diagnoses / Procedures Referred By Contac t Referred To Contact General Surgery Diagnoses Gastroesophageal reflux disease without esophagitis Constipation, unspecified constipation type Procedures CONSULT TO GENERAL SURGERY OFFICE/OUTPATIENT [facility] 60-74 MINUTES Sandi Lara, SONG WRITER.ELECTRICIAN HELPER POWERHOUSE [address] [place] [phone] Referral ID Status Reason Start Date Expiration Date Visits Requested Visits Authorized [id number] Authorized PCP Requested Referral 03/20/2022 03/20/2023 1 1 Specialty Diagnoses / Procedures Referred By Richi t Referred To Contact Rehabilitation Diagnoses Closed displaced oblique fracture of shaft of right femur, initial encounter ([facility]) Leno Beck MD [address] [phone] Referral ID Status Reason Start Date Expiration Date Visits Requested Visits Authorized [id number] Authorized Patient Preference 08/28/2023 08/27/2024 1 1 Medications Administered Section Inactive Administered [...] Date Dose Rate Site benzocaine 20% 1 Sibley (TOPEX) 1 Sibley, TOPICAL, DIRECTED, Starting on Thu06/17/22 at 1030, [...] DATE CREATED AUTHOR AUTHOR'S ORGANIZ ATION 08/18/2023 [facility] DATE CREATED AUTHOR AUTHOR'S ORGANIZ ATION 08/29/2023 [facility] al Source Comments (unrecognize d section and content) In the event this informatio n is protected by the Federal Confidentiality of Alcohol and Drug Abuse Patient Records regulations: The Federal rules restrict any use of the information to criminally investigate or prosecute any alcohol or drug abuse patient.[facility] the event this information is protected by the Federal Confidentiality of Alcohol and Drug Abuse Patient Records regulations: The Federal rules restrict any use of the information to criminally investigate or prosecute any alcohol or drug abuse patient.[facility] HospitalIn the event this information is protected by the Federal Confidentiality of Alcohol and Drug Abuse Patient Records regulations: The Federal rules restrict any use of the information to criminally investigate or prosecute any alcohol or drug abuse patient.[facility] HospitalIn the event this information is protected by the Federal Confidentiality of Alcohol and Drug Abuse Patient Records regulations: The Federal rules restrict any use of the information to criminally investigate or prosecute any alcohol or drug abuse patient.[facility] HospitalIn the event this information is protected by the Federal Confidentiality of Alcohol and Drug Abuse Patient Records regulations: The Federal rules restrict any use of the information to criminally investigate or prosecute any alcohol or drug abuse patient.[facility] HospitalIn the event this information is protected by the Federal Confidentiality of Alcohol and Drug Abuse Patient Records regulations: The Federal rules restrict any use of the information to criminally investigate or prosecute any alcohol or drug abuse patient.[facility] HospitalIn the event this information is protected by the Federal Confidentiality of Alcohol and Drug Abuse Patient Records regulations: The Federal rules restrict any use of the information to criminally investigate or prosecute any alcohol or drug abuse patient.[facility] HospitalIn the event this information is protected by the Federal Confidentiality of Alcohol and Drug Abuse Patient Records regulations: The Federal rules restrict any use of the information to criminally investigate or prosecute any alcohol or drug abuse patient.[facility] HospitalIn the event this information is protected by the Federal Confidentiality of Alcohol and Drug Abuse Patient Records regulations: The Federal rules restrict any use of the information to criminally investigate or prosecute any alcohol or drug abuse patient.[facility] HospitalIn the event this information is protected by the Federal Confidentiality of Alcohol and Drug Abuse Patient Records regulations: The Federal rules restrict any use of the information to criminally investigate or prosecute any alcohol or drug abuse patient.[facility] HospitalIn the event this information is protected by the Federal Confidentiality of Alcohol and Drug Abuse Patient Records regulations: The Federal rules restrict any use of the information to criminally investigate or prosecute any alcohol or drug abuse patient.[facility] HospitalIn the event this information is protected by the Federal Confidentiality of Alcohol and Drug Abuse Patient Records regulations: The Federal rules restrict any use of the information to criminally investigate or prosecute any alcohol or drug abuse patient.[facility] HospitalIn the event this information is protected by the Federal Confidentiality of Alcohol and Drug Abuse Patient Records regulations: The Federal rules restrict any use of the information to criminally investigate or prosecute any alcohol or drug abuse patient.[facility] HospitalIn the event this information is protected by the Federal Confidentiality of Alcohol and Drug Abuse Patient Records regulations: The Federal rules restrict any use of the information to criminally investigate or prosecute any alcohol or drug abuse patient.[facility] HospitalIn the event this information is protected by the Federal Confidentiality of Alcohol and Drug Abuse Patient Records regulations: The Federal rules restrict any use of the information to criminally investigate or prosecute any alcohol or drug abuse patient.[facility] HospitalIn the event this information is protected by the Federal Confidentiality of Alcohol and Drug Abuse Patient Records regulations: The Federal rules restrict any use of the information to criminally investigate or prosecute any alcohol or drug abuse patient.[facility] HospitalIn the event this information is protected by the Federal Confidentiality of Alcohol and Drug Abuse Patient Records regulations: The Federal rules restrict any use of the information to criminally investigate or prosecute any alcohol or drug abuse patient.[facility] HospitalIn the event this information is protected by the Federal Confidentiality of Alcohol and Drug Abuse Patient Records regulations: The Federal rules restrict any use of the information to criminally investigate or prosecute any alcohol or drug abuse patient.[facility] HospitalIn the event this information is protected by the Federal Confidentiality of Alcohol and Drug Abuse Patient Records regulations: The Federal rules restrict any use of the information to criminally investigate or prosecute any alcohol or drug abuse patient.[facility] HospitalIn the event this information is protected by the Federal Confidentiality of Alcohol and Drug Abuse Patient Records regulations: The Federal rules restrict any use of the information to criminally investigate or prosecute any alcohol or drug abuse patient.[facility] HospitalIn the event this information is protected by the Federal Confidentiality of Alcohol and Drug Abuse Patient Records regulations: The Federal rules restrict any use of the information to criminally investigate or prosecute any alcohol or drug abuse patient.[facility] HospitalIn the event this information is protected by the Federal Confidentiality of Alcohol and Drug Abuse Patient Records regulations: The Federal rules restrict any use of the information to criminally investigate or prosecute any alcohol or drug abuse patient.[facility] HospitalIn the event this information is protected by the Federal Confidentiality of Alcohol and Drug Abuse Patient Records regulations: The Federal rules restrict any use of the information to criminally investigate or prosecute any alcohol or drug abuse patient.[facility] HospitalIn the event this information is protected by the Federal Confidentiality of Alcohol and Drug Abuse Patient Records regulations: The Federal rules restrict any use of the information to criminally investigate or prosecute any alcohol or drug abuse patient.[facility] HospitalIn the event this information is protected by the Federal Confidentiality of Alcohol and Drug Abuse Patient Records regulations: The Federal rules restrict any use of the information to criminally investigate or prosecute any alcohol or drug abuse patient.[facility] HospitalIn the event this information is protected by the Federal Confidentiality of Alcohol and Drug Abuse Patient Records regulations: The Federal rules restrict any use of the information to criminally investigate or prosecute any alcohol or drug abuse patient.[facility] HospitalIn the event this information is protected by the Federal Confidentiality of Alcohol and Drug Abuse Patient Records regulations: The Federal rules restrict any use of the information to criminally investigate or prosecute any alcohol or drug abuse patient.[facility] HospitalIn the event this information is protected by the Federal Confidentiality of Alcohol and Drug Abuse Patient Records regulations: The Federal rules restrict any use of the information to criminally investigate or prosecute any alcohol or drug abuse patient.[facility] HospitalIn the event this information is protected by the Federal Confidentiality of Alcohol and Drug Abuse Patient Records regulations: The Federal rules restrict any use of the information to criminally investigate or prosecute any alcohol or drug abuse patient.[facility] Care Teams (unrecognized sec tion and content) Epic Specialist Relationship Specialty Start Date End Date Jonny Torres MD [address] [place] [address] PCP - General Internal Medicine 04/07/17 Epic Specialist Relationship Specialty Start Date End Date Jonny Torres MD [address] [facility] [place] [address] PCP - General Internal Medicine 04/07/17 Epic Specialist Relationship Specialty Start Date End Date Jonny Torres MD [address] [place] [address], [place] [address] PCP - General Internal Medicine 04/07/17 Epic Specialist Relationship Specialty Start Date End Date Jonny Torres MD [address] [place] [address], [place] [address] PCP - General Internal Medicine 04/07/17 Epic Specialist Relationship Specialty Start Date End Date Jonny Torres MD [address] [place] [address], [place] [address] PCP - General Internal Medicine 04/07/17 Epic Specialist Relationship Specialty Start Date End Date Jonny Torres MD [address] [place] [address], [place] [address] PCP - General Internal Medicine 04/07/17 Epic Specialist Relationship Specialty Start Date End Date Jonny Torres MD [address] [place] [address], [place] [address] PCP - General Internal Medicine 04/07/17 Epic Specialist Relationship Specialty Start Date End Date Jonny Torres MD [address] [place] [address], [place] [address] PCP - General Internal Medicine 04/07/17 Epic Specialist Relationship Specialty Start Date End Date Jonny Torres MD [address] [place] [address], [place] [address] PCP - General Internal Medicine 04/07/17 Epic Specialist Relationship Specialty Start Date End Date Jonny Torres MD [address] [facility] [place] [address] PCP - General Internal Medicine 04/07/17 Epic Specialist Relationship Specialty Start Date End Date Jonny Torres MD [address] [place] [address] [place] [address] PCP - General Internal Medicine 04/07/17 Epic Specialist Relationship Specialty Start Date End Date Jonny Torres MD [address] [place] [address] PCP - General Internal Medicine 04/07/17 Epic Specialist Relationship Specialty Start Date End Date Jonny Torres MD [address] [place] [address] PCP - General Internal Medicine 04/07/17 Epic Specialist Relationship Specialty Start Date End Date Jonny Torres MD [address] [place] [address] PCP - General Internal Medicine 04/07/17 Epic Specialist Relationship Specialty Start Date End Date Jonny Torres MD [address] [place] [address] PCP - General Internal Medicine 04/07/17 Epic Specialist Relationship Specialty Start Date End Date Jonny Torres MD [address] [place] [address] PCP - General Internal Medicine 04/07/17 Epic Specialist Relationship Specialty Start Date End Date Jonny Torres MD [address] [place] [address] PCP - General Internal Medicine 04/07/17 Epic Specialist Relationship Specialty Start Date End Date Jonny Torres MD [address] [place] [address] PCP - General Internal Medicine 04/07/17 Epic Specialist Relationship Specialty Start Date End Date Jonny Torres MD [address] [place] [address] PCP - General Internal Medicine 04/07/17 Epic Specialist Relationship Specialty Start Date End Date Jonny Torres MD [address] [place], [place] [address] PCP - General Internal Medicine 04/07/17 Epic Specialist Relationship Specialty Start Date End Date Jonny Torres MD [address] [place], [place] [address] PCP - General Internal Medicine 04/07/17 Epic Specialist Relationship Specialty Start Date End Date Jonny Torres MD [address] [place] [address] PCP - General Internal Medicine 04/07/17 Epic Specialist Relationship Specialty Start Date End Date No, Physician [facility] PCP - General 08/21/23 Reason for Visit (unrecogniz ed section and content) Reason Comments Fall Pt fell at home pain middle back pain rated 7, x2 days Reason Comments Appointment Reclast Reason Comments Abdominal Pain Reason Comments Radiology US Specialty Diagnoses / Procedures Referred By Conthossein t Referred To Contact US IMAGING Diagnoses RUQ abdominal pain Procedures US ABD RT UPPER QUADRANT US ABDOMINAL REAL TIME W/IMAGE LIMITED Sandi Lara, SONG WRITER[employer] [address] [place] [address] Us Imaging Referral ID Status Reason Start Date Expiration Date V isits Requested Visits Authorized [id number] Closed Auto-Generate d Referral 01/14/2022 02/13/2023 1 1 Reason Comments Covid19 Concern Reason Comments Consult GERD, constipation, bloating Specialty Diagnoses / Procedures Referred By Contac t Referred To Contact General Surgery Diagnoses Gastroesophageal reflux disease without esophagitis Constipation, unspecified constipation type Procedures CONSULT TO GENERAL SURGERY OFFICE/OUTPATIENT [facility] MDM 60-74 MINUTES Sandi Lara, SONG WRITER.[employer] [address] [place] [address] Referral ID Status Reason Start Date Expiration Date V isits Requested Visits Authorized [id number] Closed PCP Requested Referral 03/20/2022 03/20/2023 1 1 Reason Comments Additional Labs Reason Comments Non-Chemotherapy Treatment Specialty Diagnoses / Procedures Referred By Contac t Referred To Contact Diagnoses 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, unspecified osteoporosis type, subsequent encounter History of total right hip arthroplasty Abel Owens, DO [address] [place] [address] Manny [facility] [address] [place] [address] Referral ID Status Reason Start Date Expiration Date Visits Re quested Visits Authorized [id number] Closed 06/01/2020 08/30/2020 1 1 Reason Onset Date Comments Refill Request 09/01/2022 needs today Reason Onset Date Comments Refill Request 12/01/2022 Reason Onset Date Comments Refill Request 12/17/2022 Reason Comments Refill Request Reason Onset Date Comments Refill Request 02/22/2023 Reason Onset Date Comments Refill Request 06/07/2023 Reason Comments Reclast Infusion-Order Request Reason Comments Benefits Investigation Reason Comments F/U 6 months cholesterol Reason Comments Fall Specialty Diagnoses / Procedures Referred By Contac t Referred To Contact Diagnoses Fall at home, initial encounter Referral ID Status Reason Start Date Expiration Date Visits Re quested Visits Authorized [id number] 1 1 Scheduled Active and Recently Administ ered Medications (unrecognized section and content) PRN Medication Order 08/26/2023 08/27/2023 08/28/2023 acetaminophen (TYLENOL) tablet 650 mg 650 mg, Oral, Every 4 hours PRN, headaches, mild pain, Starting on Thu08/21/23 at 2004 0815 (Given - Provider: Fouzia Buenrostro LPN)1350 (Given - Provider: Fouzia Buenrostro LPN) 0056 (Given - Provider: Annie Brush RN) 0110 (Given - Provider: Annie Brush RN)0956 (Given - Provider: Erma Cardenas LPN - Comment: tightness right leg) diphenhydrAMINE (BENADRYL) tablet 50 mg 50 mg, Oral, Nightly PRN, sleep, Starting on Amairani 08/27/23 at 0622, Home dose 2006 (Given - Provider: Annie Brush RN) HYDROcodone-acetaminophen (NORCO) 5-325 mg per tablet 1 tablet 1 tablet, Oral, Every 6 hours PRN, moderate to severe pain, Starting on 08/22/23 at 1543 methocarbamoL (ROBAXIN) tablet 500 mg 500 mg, Oral, 3 times daily PRN, muscle spasms, Starting on Thu08/21/23 at 2004 1400 (Due) naloxone (NARCAN) injection 0.1 mg(Linked Group 1) 0.1 mg, Intravenous, As needed, opioid reversal, For respiratory rate less than or equal to 8 per minute., Starting on Thu08/21/23 at 2003, Mix nalOXone (NARCAN) 0.4 mg (1mL) with 9 mL of Normal Saline to total 10 mL. Administer 0.1 mg (2.5mL) IV Push every 2 minutes until respiratory rate is 10 or greater. naloxone (NARCAN) injection 0.4 mg(Linked Group 1) 0.4 mg, Intravenous, As needed, opioid reversal, patient is pulseless, breathless, and unresponsive, Starting on Thu08/21/23 at 2003, Call a code first, then administer naloxone dose undiluted IV Push over 30 seconds. ondansetron (ZOFRAN) injection 4 mg(Linked Group 2) 4 mg, Intravenous, Every 6 hours PRN, nausea, vomiting, Starting on Thu08/21/23 at 1600, [] Oral or IV - use oral route if tolerated. ondansetron (ZOFRAN-ODT) disintegrating tablet 4 mg(Linked Group 2) 4 mg, Oral, Every 6 hours PRN, nausea, vomiting, Starting on Thu08/21/23 at 1600, [] Oral or IV - use oral route if tolerated. Formulation requires tablet remain in sealed package until immediately prior to dose being administered. Linked Groups Order Group 1: naloxone (NARCAN) injection 0.1 mgJump to med 0.1 mg, Intravenous, As needed, opioid reversal, For respiratory rate less than or equal to 8 per minute., Starting on Thu08/21/23 at 2003
Mix nalOXone (NARCAN) 0.4 mg (1mL) with 9 mL of Normal Saline to total 10 mL. Administer 0.1 mg (2.5mL) IV Push every 2 minutes until respiratory rate is 10 or greater.
And Notify physician (CANCELED) STAT, Until discontinued, Starting on Thu08/21/23 at 2005, Until Specified
Respiratory rate less than: 8
For respiratory rate less than or equal to 8, notify physician and/or appropriate staff for additional orders. And naloxone (NARCAN) injection 0.4 mgJump to med 0.4 mg, Intravenous, As needed, opioid reversal, patient is pulseless, breathless, and unresponsive, Starting on Thu08/21/23 at 2003
Call a code first, then administer naloxone dose undiluted IV Push over 30 seconds.
Group 2: ondansetron (ZOFRAN-ODT) disintegrating tablet 4 mgJump to med 4 mg, Oral, Every 6 hours PRN, nausea, vomiting, Starting on Thu08/21/23 at 1600
[] Oral or IV - use oral route if tolerated. Formulation requires tablet remain in sealed package until immediately prior to dose being administered.
Or ondansetron (ZOFRAN) injection 4 mgJump to med 4 mg, Intravenous, Every 6 hours PRN, nausea, vomiting, Starting on Thu08/21/23 at 1600
[] Oral or IV - use oral route if tolerated.
FOR RECORDS PERTAINING TO PATIENTS WHO ARE [...] BE BASED ON THE PRIMARY CLINICAL RECORDS. [employer] [facility]. provides no warranty or guarantee of the accuracy or completeness of information in this document.
--- NOTE | 2023-08-29 16:11 | NURSING ---
referencing TCU [id number] for room TCU22; unable to reassign blood products to MS305 [id number]; blood products were started on MS3 - but they are being charted under her TCU V#[id number]
--- NOTE | 2023-08-29 16:38 | NURSING ---
blood bank able to switch Blood product admissions to [facility] [id number] from her TCU [id number]
[2023-08-29 17:02] VITALS: BP 187/84; PULSE 93; RESP 18; O2SAT 98
[2023-08-29] MEDS: Furosemide 20 MG/2 ML VIAL IV (17:36)
[2023-08-29 17:40] VITALS: BP 165/76; PULSE 102; RESP 18; TEMP 37; O2SAT 96
[2023-08-29 17:56] VITALS: BP 176/74; PULSE 92; RESP 18; O2SAT 97
[2023-08-29 18:11] VITALS: BP 170/75; PULSE 96; RESP 18; TEMP 36.8; O2SAT 97
--- NOTE | 2023-08-29 18:16 | NURSING ---
unable to end blood transfusion - [id number] was finished at 3910 08/29/23
[2023-08-29 19:04] VITALS: BP 148/82; PULSE 101; RESP 18; TEMP 37.2; O2SAT 98
[2023-08-29 20:00] VITALS: BP 157/63; PULSE 99; RESP 16; TEMP 37.1; O2SAT 96
== END 2023-08-29 20:15 | disposition skilled nursing facility (03) ==
LOC: MS3OUT 15:07 → MS3 15:25
PROVIDERS: PCP Internal Medicine; Visit Provider Family Medicine Geriatric Medicine
DX: R53.81 Other malaise (principal); E55.9 Vitamin D deficiency, unspecified; F32.A Depression, unspecified; E78.5 Hyperlipidemia, unspecified; K21.9 Gastro-esophageal reflux disease without esophagitis; Z87.891 Personal history of nicotine dependence; Z86.73 Personal history of transient ischemic attack (TIA), and cerebral infarction without residual deficits
CPT/HCPCS: 36415; 36430; 86850; 86900; 86901; 86920; 86922; J7040; P9016; J1940

== ENCOUNTER → 2024-12-23 | Outpatient (CLI) | payer MEDICARE, OTHER, SELFPAY ==
--- NOTE | 2024-12-23 11:41 | MRI_ITS ---
PROCEDURE: SPINE LUMBAR (ROUTINE) 12/23/2024 REASON FOR EXAM: DEGENERATIVE DISC DISEASE, SCOLIOSIS TECHNIQUE: Multiplanar and multisequence images were obtained without IV contrast administration. COMPARISON: Lumbar spine radiograph from 11/10/2024. FINDINGS: Lumbar vertebral bodies maintain normal height. There is levoscoliosis of the lumbar spine with apex of the curvature L2-L3. There is a prior severe compression fracture of T11 with prior vertebroplasty. There is a mild superior endplate compression fracture of T10 with mild bone marrow edema along the superior endplate. There is a hemangioma involving the T9 vertebral body. There is diminished signal intensity involving the discs throughout the lumbar spine and visualized lower thoracic spine related to degenerative disc disease. Multilevel disc space narrowing with endplate spurring is identified. The tip of the conus medullaris terminates at L1 and signal intensity of the included spinal cord is within normal limits. There is mild atrophy of the paraspinous musculature. Bilateral renal cysts are identified largest in the left kidney measuring 7.5 cm. Individual levels: T9-T10: No disc herniation, central canal stenosis, or significant neural foraminal narrowing. T10-T11: Posterior retropulsion of T11 by proximally 4-5 mm results in flattening of the ventral thecal sac and qhjy-cy-yrdmhoff central canal stenosis. There is mild bilateral neural foraminal narrowing. T11-T12: Mild disc bulge with mild facet/flavum hypertrophy. No significant central canal stenosis is identified. There is mild bilateral neural foraminal narrowing. T12-L1: Mild disc bulge and mild facet/flavum hypertrophy. No significant central canal stenosis or neural foraminal narrowing. L1-L2: Mild retrolisthesis with disc bulge and facet/flavum hypertrophy. No significant central canal stenosis or left neural foraminal narrowing is present. There is mild right neural foraminal narrowing. L2-L3: Mild retrolisthesis with circumferential disc bulge and facet/flavum hypertrophy results in moderate to severe central canal stenosis. There is moderate to severe right and moderate left neural foraminal narrowing. L3-L4: Disc bulge and facet/flavum hypertrophy results in severe central canal stenosis. There is severe narrowing of the bilateral lateral recesses as well as severe bilateral neural foraminal narrowing. L4-L5: Circumferential disc bulge with facet/flavum hypertrophy results in severe central canal stenosis. There is severe bilateral neural foraminal narrowing, kphx-vnpvcxv-hgcd-right. L5-S1: Disc bulge which is asymmetric to the left and facet arthropathy. No significant central canal stenosis is present. There is severe left neural foraminal narrowing and mild right neural foraminal narrowing. MRI/Spine Lumbar (Routine) IMPRESSION: 1. Prior severe compression fracture of T11 with vertebroplasty. There is retr opulsion of the posterior, superior endplate of T11 which results in suip-ao-naqhtosp central canal stenosis. 2. Mild superior endplate compression fracture of T10 with bone marrow edema al sanaz the superior endplate may be on a subacute basis. 3. Advanced multilevel degenerative disc disease and spondylosis with severe ce ntral canal stenosis from L3-L5 and moderate to severe central canal stenosis at L2-L3. Multilevel varying degrees of neural f oraminal narrowing are identified which are mostly on a severe basis as above. 4. Levoscoliosis. [facility]
== END | disposition home or self-care (01) ==
LOC: OPMRI 11:02
PROVIDERS: PCP Internal Medicine; Referring Provider Student in an Organized Health Care Education/Training Program; Visit Provider Student in an Organized Health Care Education/Training Program
DX: M51.369 Other intervertebral disc degeneration, lumbar region without mention of lumbar back pain or lower extremity pain (principal); M41.50 Other secondary scoliosis, site unspecified
CPT/HCPCS: 72148

== ENCOUNTER → 2025-02-03 | Outpatient (CLI) | payer MEDICARE, OTHER, SELFPAY ==
--- NOTE | 2025-02-03 14:32 | RAD_ITS ---
PROCEDURE: KNEE 4 OR MORE VIEWS 02/03/2025 REASON FOR EXAM: KNEE PAIN TECHNIQUE: KNEE 4 OR MORE VIEWS COMPARISON: None FINDINGS: Bones: No fracture. No suspicious bone lesion. Joints: Mild degree of joint space narrowing of the medial compartment of the knee joint. Effusion: Tiny joint effusion. Soft tissues: No soft tissue swelling. Other: RAD/Knee 4 or More Views IMPRESSION: DEGENERATIVE OSTEOARTHROSIS. NO ACUTE FINDINGS. Tiny joint effusion. Reading Location: [id number]
== END | disposition home or self-care (01) ==
LOC: MTRAD 14:32
PROVIDERS: PCP Internal Medicine; Referring Provider Physician Assistant Surgical; Visit Provider Physician Assistant Surgical
DX: M25.561 Pain in right knee (principal)
CPT/HCPCS: 73564

== ENCOUNTER → 2025-05-29 | Outpatient (CLI) | payer MEDICARE, OTHER, SELFPAY ==
--- NOTE | 2025-05-29 12:11 | US_ITS ---
PROCEDURE: KIDNEY AND BLADDER 05/29/2025 REASON FOR EXAM: UTI TECHNIQUE: Procedure Code: USKI Modality: US Procedure: KIDNEY AND BLADDER COMPARISON: None FINDINGS: Kidneys: No solid mass lesion is seen. Galien: No hydronephrosis. Cysts or Masses: 2 right renal cysts are seen. The largest cyst measures 5 cm x 4.6 cm by 4.2 cm. There is a 7.8 cm 6.7 cm 5.7 cm cyst in the left kidney. RIGHT Kidney Size: 9.5 cm x 5.9 cm x 4.2 cm Cortical Thickness (if discernible): 14 mm (>6mm is normal) LEFT Kidney Size: 12.2 cm x 4.4 cm x 5 cm Cortical Thickness (if discernible): 14 mm (>6mm is normal) Urinary bladder is unremarkable. US/Kidney and Bladder IMPRESSION: Bilateral renal cysts. Reading Location: [place] [id number]
--- OUTSIDE RECORDS SUMMARY | 2025-05-29 12:29 | XMS RPT_ITS | CCD ---
Author Organization [facility] Care Team Providers Care Rubber Chemist Name Role Phone Subha Whiteside Unavailable Unavailabl Subha King E Unavailable UnavailJonny Major Unavailable Unavailable Jonny Torres MD Primary Care Provider Jonny Torres MD Primary Care Provider Jonny Torres MD Primary Care Provider No, Physician Primary Care Provider UnavailPATTI Alvarado Attending Aleksandr BECK, PATTI CESPEDES Consulting PATTI Maldonado Admitting Unavai lable NO, PHYSICIAN Primary Care Unavailable CRISSY LUU Consulting PATTI Mitchell Referring PATTI Maldonado Admitting Unavai lable NO, PHYSICIAN Primary Care Unavailable NO, PHYSICIAN Primary Care Unavailable WESTLEY HAMEED Attending Unavailable WESTLEY HAMEED Admitting Unavailable Jonny Torres MD Primary Care Provider Kelli SCIENTIST ENGINEER.4TH GRADE TEACHER, Misael Unavailable Chastity SCIENTIST ENGINEER.ASSOCIATE PROPERTY MANAGER, Yulia Unavailable [phone] CRISSY LUU Admitting Unavailab le NO, PHYSICIAN Primary Care Unavailable CRISSY LUU Referring Unavailab CRISSY Siddiqui Attending Unavailab le NO, PHYSICIAN Primary Care Unavailable CRISSY LUU Attending Unavailab le NO, PHYSICIAN Primary Care Unavailable NO, PHYSICIAN Primary Care Unavailable CRISSY LUU Attending Unavailab le NO, PHYSICIAN Primary Care Unavailable CRISSY LUU Attending Unavailab le NO, PHYSICIAN Primary Care Unavailable KARMA BUTTS Attending Unavailable CRISSY LUU LILY Admitting Unavailab le YASMINE, CRISSY LILY Referring Unavailab le NO, PHYSICIAN Primary Care Unavailable NO, PHYSICIAN Primary Care Unavailable YASMINE, CRISSY BAUTISTA Admitting Unavailab le YASMINE, CRISSY BAUTISTA Referring Unavailab le NO, PHYSICIAN Primary Care Unavailable YASMINE, CRISSY BAUTISTA Admitting Unavailab le YASMINE, CRISSY LILY Referring Unavailab le NO, PHYSICIAN Primary Care Unavailable BUTTS, KARMA BRIAN Admitting Unavailable BUTTS, KARMA BRIAN Referring Unavailable Chastity SCIENTIST ENGINEER.ASSOCIATE PROPERTY MANAGER, Yulia Unavailable Chastity SCIENTIST ENGINEER.ASSOCIATE PROPERTY MANAGER, Yulia Unavailable Chastity SCIENTIST ENGINEER.ASSOCIATE PROPERTY MANAGER, Yulia Unavailable MISAEL LARA Referring Unavailable JONNY TORRES Primary Care Unavailable Dr. Jonny Torres MD Primary Care Provider Dr. Jonny Torres MD Referring Provider Lily Johnson Attending Provider Dr. Braulio Prince MD Attending Provider Lily Johnson Referring Provider Lara SCIENTIST ENGINEER.4TH GRADE TEACHER, Misael Unavailable Lara SCIENTIST ENGINEER.4TH GRADE TEACHER, Misael Unavailable Ray Madera Attending Provider Ray Madera Referring Provider Sofia Hutson Attending Provider Dr. Jonny Torres MD Primary Care Provider [phone] Lily Johnson Attending Provider Dr. Jonny Torres MD Referring Provider Dr. Braulio Prince MD Attending Provider JONNY TORRES Primary Care Unavailable LARAEVELYNI Referring Unavailable JONNY TORRES Primary Care Unavailable KELLI, MISAEL Referring Unavailable JONNY TORRES Primary Care Unavailable RAMONE DORMAN Attending Unavaila ble TALAMPAS, JONNY D Referring Unavailable TALAMPAS, JONNY D Primary Care Unavailable BENDARAM, RAMONE SUERO Referring Unavaila ble TALAMPAS, JONNY D Primary Care Unavailable BENDARAM, RAMONE SUERO Attending Unavaila ble TALAMPAS, JONNY D Primary Care Unavailable YO KENNY Referring Unavailable TALAMPAS, JONNY D Primary Care Unavailable LARAMISAEL Attending Unavailable TALAMPAS, JONNY D Primary Care Unavailable LARA, MISAEL Referring Unavailable TALAMPAS, JONNY D Primary Care Unavailable TALAMPAS, JONNY D Primary Care Unavailable OLDER KENNY Referring Unavailable TALAMPAS, JONNY D Primary Care Unavailable TALAMPAS, JONNY D Referring Unavailable TALAMPAS, JONNY D Primary Care Unavailable TALAMPAS, JONNY D Attending Unavailable TALAMPAS, JONNY D Primary Care Unavailable KENNY PANDEY Attending Unavailable TALAMPAS, JONNY D Primary Care Unavailable KASSIE BALES Attending Unavailabl e TALAMPAS, JONNY D Primary Care Unavailable TALAMPAS, JONNY D Referring Unavailable TALAMPAS, JONNY D Primary Care Unavailable TALAMPAS, JONNY D Attending Unavailable TALAMPAS, JONNY D Primary Care Unavailable TALAMPAS, JONNY D Primary Care Unavailable VICTORIANO SMITH Attending Unavailable Talampas , Dr. Jonny Simpson Primary Care Physician Lily Johnson Attending Physician 1([facility])[phone] Braulio Prince MD Attending Physician 1([facility])[phone] Ray Madera Attending Physician 1([facility])[phone] Car LEAD DESIGNER-C, Sofia Attending Physician 1([facility])[phone] Dr. Vanessa Stern MD Attending Physician Talampas, Jonny D Referring Unavailable Liyl Esquivel Attending Unavailable Talampas, Jonny D Primary Care Unavailable Talampas, Jonny D Primary Care Unavailable Braulio Prince Attending Unavailable Talampas, Jonny D Primary Care Unavailable Vanessa Stern Referring Unavailable Vanessa Stern Attending Unavailable Lily Esquivel Referring Unavailable AlvinLily pérez Attending Unavailable Talampas, Jonny D Primary Care Unavailable Ray Madera Referring Unavailable Ray Madera Attending Unavailable Talampas, Jonny D Primary Care Unavailable Talampas, Jonny D Referring Unavailable Alvin, Lily Attending Unavailable Talampas, Jonny D Primary Care Unavailable Talampas, Jonny D Primary Care Unavailable NikiBraulio rendon Attending Unavailable Talampas, Jonny D Referring Unavailable Ray Madera Attending Unavailable Talampas, Jonny D Primary Care Unavailable Talampas, Jonny D Referring Unavailable Dixie Yoone Attending Unavailable Talampas, Jonny D Primary Care Unavailable Talampas, Jonny D Primary Care Unavailable NikiWalker rendonril Attending Unavailable Talampas, Jonny D Referring Unavailable Yoon, Sofia Attending Unavailable Talampas, Jonny D Primary Care Unavailable Talampas, Jonny D Referring Unavailable Yoon, Sofia Attending Unavailable Talampas, Jonny D Primary Care Unavailable Yoon, Sofia Attending Unavailable Talampas, Jonny D Referring Unavailable Talampas, Jonny D Primary Care Unavailable Car, Sofia Attending Unavailable Talampas, Jonny D Referring Unavailable Talampas, Jonny D Primary Care Unavailable Talampas, Jonny D Primary Care Unavailable Vanessa Stern Attending Unavailable Talampas, Jonny D Referring Unavailable Talampas, Jonny D Referring Unavailable Alvin Lily Attending Unavailable Talampas, Jonny D Primary Care Unavailable Allergies Allergy Classification Reported Allergen(s) Allergy Type Date of Onset Reaction(s) Facility Opioid Agonists (2 sources) Codeine Drug Allergy 3 GI Upset, Itching [facility] Penicillins (antibiotic) (1 source) Penicillins Drug Allergy 3 Unknown [facility] (20 sources) codeine; Translations: [codeine] Drug Allergy 3 GI Upset, GI Intolerance [facility] (20 sources) fentaNYL; Translations: [fentaNYL] Drug Allergy 7 Itching [facility] (20 sources) Penicillins; Translations: [penicillins] Propensity to adverse reactions to drug (disorder) 3 Unknown [facility] Comment on above: per pt was told [facility] child very sensitive to pcn Medications Current Medications Medication Drug Class(es) Dates Sig (Normalized) Sig (Original) acetaminophen 500 mg oral tablet (20 sources) Start: 09-18-2023 take 2 tablets by mouth every six hours as needed for pain Acetaminophen 500 mg Tablet Active 1000 mg PO EVERY 6 HOURS NEEDED as needed for Pain Score 1-10 0 0 September 18, 2023 1:00am Complies with drug therapy Start: 09-18-2023 take 1000 mg by mout h every six hours as needed Acetaminophen Active 1000 MG PO EVERY 6 HOURS NEEDED 0 September 18, 2023 12:00am Start: 11-01-2015 End: 09-18-2023 take 2 tablets by mouth every four hours as needed for pain Acetaminophen 325 MG tablet Discontinued 650 mg PO EVERY 4 HOURS NEEDED as needed for Mild-Mod Pain (1-5/10) 0 0 November 01, 2015 12:00am September 18, 2023 3:15pm Start: 11-01-2015 End: 09-18-2023 take 1 tablet by mouth every four hours as needed for headache and pain acetaminophen (TYLENOL) tablet 650 mg Start: 12-17-2007 End: 08-28-2023 Acetaminophen (Tylenol Arthr itis) 650 MG Tablet.Er Discontinued 1300 mg PO TWICE DAILY NEEDED as needed for Mild-Mod Pain (1-5/10) October 19, 2015 1:00am October 24, 2015 10:24am Start: 12-17-2007 acetaminophen( TYLENOL ARTHRITIS PAIN 650 MG TAB) Take two(2) tablets twice daily. 0 0 12/17/2007 Active Comment on above: Take two(2) tablets twice daily. aspirin 81 mg delayed release oral tablet (20 sources) Platelet Aggregation Inhibitor, Nonsteroidal Anti-inflammatory Drug Start: 05-18-2016 End: 04-06-2024 take 1 tablet by mouth once daily Aspirin (Adult Aspirin Regimen) 81 mg tablet,delayed release (DR/EC) Active 81 mg PO DAILY March 21, 2020 12:00am [facility] Complies with drug therapy Start: 10-19-2015 End: 10-24-2015 take 1 tablet by mouth once daily Aspirin 81 MG Tab.Chew Discontinued 81 mg PO DAILY@0800 October 19, 2015 1:00am October 24, 2015 10:24am Comment on above: Take 1 tablet by luis th once daily. calcium ascorbate 500 mg oral tablet (13 sources) Start: take 1 tablet by mouth twice daily Ascorbate Calcium (Vitamin C) 500 mg tablet Active 500 mg PO TWICE A DAY March 21, 2020 12:00am Supplement Complies with drug therapy cephalexin 250 mg oral capsule (7 sources) Cephalosporin Antibacterial Start: take 1 capsule by mouth at bedtime Start: 04-03-2025 End: 04-13-2025 take 1 capsule by mouth three times daily cephALEXin (KEFLEX) 500 mg capsule Indications: Urinary tract infection with hematuria, site unspecified , Recurrent UTI Take 1 capsule by mouth three times a day for 10 days. 30 capsule 04/03/2025 04/13/2025 Start: 03-13-2025 End: 03-20-2025 take 1 capsule by mouth three times daily cephALEXin (KEFLEX) 500 mg capsule Indications: Urinary tract infection with hematuria, site unspecified , Recurrent UTI Take 1 capsule by mouth three times a day for 7 days. 21 capsule 03/13/2025 03/20/2025 Active Start: 10-16-2024 End: 10-23-2024 take 1 capsule by mouth three times daily cephALEXin (KEFLEX) 500 mg capsule Indications: Urinary tract infection with hematuria, site unspecified Take 1 capsule by mouth three times a day for 7 days. 21 capsule 10/16/2024 10/23/2024 Active cholecalciferol 0.025 mg oral tablet (20 sources) Vitamin D Start: 10-19-2015 End: 08-28-2023 take 1 tablet by mouth twice daily Cholecalciferol (Vitamin D3) 1,000 UNIT tablet Active 1000 U PO TWICE A DAY October 19, 2015 1:00am Supplement Complies with drug therapy take 1 capsule by mouth twice da sophia Cholecalciferol, Vitamin D3, 25 mcg (1,000 unit) cap Take 1,000 Units by mouth two times a day. Active Comment on above: Take 1,000 Units by mouth twice daily. ciprofloxacin 500 mg oral tablet (1 source) Quinolone Antimicrobial Start: 05-08-2025 take 1 tablet by mouth twice daily Start: 05-08-2025 take 1 tablet by mouth twice d aily clopidogrel 75 mg oral tablet (20 sources) P2Y12 Platelet Inhibitor Start: 05-20-2017 End: 06-24-2024 take 1 tablet by mouth once daily Clopidogrel 75 MG tablet Active 75 mg PO DAILY May 20, 2017 12:00am antiplatelet Complies with drug therapy Comment on above: Take 1 tablet by luis th once daily. iv contrast (will be provided with radiology test) (2 sources) Start: 10-27-2024 End: 10-28-2024 iv contrast (will be provided with radiology test) Indications: Breast asymmetry , Dense breast tissue on mammogram, unspecified type , Encounter for breast cancer screening using non-mammogram modality MRI DENSE BREAST LIMITED WO/W IVCON, Inject, intravenously, once for 1 dose. No IV access, insert saline lock prior to the beginning of sedation, infusion, injection of imaging exam. Discontinue saline lock post exam. If Pt has a central line or IVAD, may access for administration according to line specific nursing protocol. Once exam is complete flush line and de-access according to line specific nursing protocol in the MR contrast administration guidelines link 1 Each 10/27/2024 10/28/2024 Active Start: 09-27-2024 End: 09-28-2024 iv contrast (will be provide d with radiology test) Indications: Breast asymmetry , Other general symptoms and signs MRI Breast MARIE Inject, intravenously, once for 1 dose. No IV access, insert saline lock prior to the beginning of sedation, infusion, injection of imaging exam. Discontinue saline lock post exam. If Pt has a central line or IVAD, may access for administration according to line specific nursing protocol. Once exam is complete flush line and de-access according to line specific nursing protocol in the MR contrast administration guidelines link 1 Each 09/27/2024 09/28/2024 Active Magnesium (11 sources) Start: 11-10-2024 take 2 tablets by [facility] once daily Magnesium 250 mg tablet Active 500 mg PO daily November 10, 2024 12:00am Complies with drug therapy Start: 11-10-2024 take 2 tablets [address] [facility] once daily Magnesium 250 mg tablet Active 500 mg PO daily November 10, 2024 12:00am mometasone furoate 0.05 mg/actuat metered dose nasal spray (20 sources) Corticosteroid Start: 05-05-2025 Mometasone 50 mcg/actuation spray,non-aerosol Active 2 NMA INTRANASAL daily May 05, 2025 12:00am Complies with drug therapy Start: 06-28-2024 take 2 spray(s) nasa l route once daily, then take 2 spray(s) nasal route once daily mometasone (NASONEX) 50 mcg/actuation nasal spray Use 2 Sprays in each nostril once daily. INSTILL 2 SPRAYS IN EACH NOSTRIL ONCE DAILY 06/28/2024 Active montelukast 10 mg oral tablet (20 sources) Leukotriene Receptor Antagonist Start: 06-28-2024 take 1 tablet by mouth once daily Montelukast 10 mg tablet Active 10 mg PO daily February 03, 2025 12:00am Complies with drug therapy omeprazole 20 mg delayed release oral capsule (20 sources) Proton Pump Inhibitor Start: 02-03-2025 take 1 capsule by mouth once daily Omeprazole 20 mg capsule,delayed release(DR/EC) Active 20 mg PO daily February 03, 2025 12:00am Complies with drug therapy Start: 10-19-2015 End: 03-21-2020 take 1 capsule by mouth once daily Omeprazole 20 MG capsule Discontinued 20 mg PO DAILY October 19, 2015 1:00am March 21, 2020 12:58pm pantoprazole 40 mg delayed release oral tablet (20 sources) Proton Pump Inhibitor Start: 10-23-2020 take 40 mg by mouth once daily Pantoprazole Active 40 MG PO DAILY October 23, 2020 2:26pm Start: 10-23-2020 End: 02-03-2025 take 1 tablet by mouth every twelve hours Pantoprazole 40 mg tablet,delayed release (DR/EC) Discontinued 40 mg PO Q12H October 23, 2020 12:00am February 03, 2025 2:59pm GERD Start: 09-05-2020 End: 01-17-2024 take 1 tablet by mouth twice daily before mealtime pantoprazole DR (PROTONIX) 40 mg tablet Take 1 tablet by mouth two times a day. Take on empty stomach, 1/2 hr before meal. 60 tablet 01/18/2024 Active Comment on above: Take 1 tablet by luis th twice daily. Take on empty stomach, 1/2 hr before meal. polyethylene glycol 3350 [id number] mg / potassium chloride 2970 mg / sodium bicarbonate 6740 mg / sodium chloride 5860 mg / sodium sulfate 74934 mg powder for oral solution (1 source) Osmotic Laxative Start: 04-09-2022 End: 04-09-2022 peg 3350-Electrolytes (GOLYTELY) 236-22.74-6.74 -5.86 gram suspension Take 4,000 mL by mouth one time only for 1 dose. 1 Each 0 04/09/2022 04/09/2022 Active Comment on above: Take 4,000 mL by luis th one time only for 1 dose. potassium chloride 10 meq extended release oral tablet (20 sources) Start: 07-20-2024 take 1 tablet by mouth twice daily potassium chloride (K-TAB) 10 mEq tablet Take 1 tablet by mouth two times a day. 60 tablet 11 07/20/2024 Active Start: 02-16-2024 End: 07-20-2024 take 1 tablet by mouth once daily at breakfast potassium chloride (K-TAB) 10 mEq tablet Take 1 tablet by mouth daily with breakfast. 30 tablet 11 02/16/2024 07/20/2024 Discontinued Start: 09-18-2023 End: 02-16-2024 take 1 tablet by mouth once daily potassium chloride SA (K-DUR,KLOR-CON) 20 MEQ tablet Take 1 (one) tablet (20 mEq total) by mouth daily . 30 tablet 11/20/2023 Active Start: 09-18-2023 take 1 tablet by luis th twice daily at mealtime Potassium Chloride 20 mEq Tablet,Er Particles/Crystals Active 20 meq PO TWICE DAILY WITH MEALS 60 30 0 September 18, 2023 1:00am Complies with drug therapy Start: 08-25-2023 End: 08-25-2023 take 1 tablet by mouth every four hours potassium chloride SA (K-DUR,KLOR-CON) CR tablet 40 mEq Start: 08-23-2023 End: 08-23-2023 take 1 tablet by mouth every four hours potassium chloride SA (K-DUR,KLOR-CON) CR tablet 40 mEq predniSONE 10 mg oral tablet (1 source) Start: 12-03-2021 End: 12-15-2021 predniSONE (DELTASONE) 10 mg tablet Take 6 tabs for 3 days, then 4 tabs for 3 days, then 2 tabs for 3 days then 1 tab for 3 days with food. 39 tablet 0 12/03/2021 12/15/2021 Active Comment on above: Take 6 tabs for 3 da ys, then 4 tabs for 3 days, then 2 tabs for 3 days then 1 tab for 3 days with food. Prenat.Vits,Luis,Min -Iron-Folic (2 sources) Start: 03-21-2020 take 1 tablet by mouth once daily Prenat.Vits,Luis,Min- Iron-Folic Active 1 TABLET PO DAILY March 21, 2020 2:55pm Start: 03-21-2020 End: 09-18-2023 take 1 tablet by mouth once daily Prenat.Vits,Luis,Jxi-Nymj-Thtbn Discontin ued 1 TABLET PO DAILY March 20, 2020 11:00pm September 18, 2023 2:15pm rosuvastatin calcium 5 mg oral tablet (20 sources) HMG-CoA Reductase Inhibitor Start: 01-12-2023 End: 02-15-2025 take 1 tablet by mouth once daily Rosuvastatin (Crestor) 5 mg tablet Active 5 mg PO DAILY August 28, 2023 1:00am Cholesterol Complies with drug therapy Comment on above: Take 1 tablet by luis th daily at bedtime. Senna-Docusate Sodium (1 source) Start: 08-28-2023 take 1 tablet by mouth once daily Senna-Docusate Sodium Active 1 TABLET PO DAILY August 28, 2023 12:00am SENNOSIDES/DOCUSATE SODIUM (SENOKOT-S ORAL) (20 sources) take 1 dose by mouth once daily as needed SENNOSIDES/DOCUSATE SODIUM (SENOKOT-S ORAL) Take 1 Dose by mouth once daily as needed. Active take 1 dose by mouth once daily as needed SENNOSIDES/DOCUSATE SODIUM (SENOKOT-S OR AL) Take 1 Dose by mouth once daily as needed. 0 Active SENNOSIDES/DOCUS ATE SODIUM (SENOKOT-S ORAL) Take by mouth once daily. 0 Active Comment on above: Take by mouth once d aily. ubidecarenone 100 mg oral capsule (20 sources) Start: 02-15-2025 take 1 capsule by mouth twice daily coenzyme Q10 (COQ-10) 100 mg cap capsule Take 1 capsule by mouth two times a day. (Or 200 mg once daily) 02/15/2025 Active Start: 03-21-2020 End: 03-21-2020 Coenzyme Q10 (Co Q-10) 100 m g capsule Discontinued 100 mg PO DAILY March 21, 2020 12:00am March 21, 2020 2:58pm 24 hr venlafaxine 75 mg extended release oral capsule (20 sources) Serotonin and Norepinephrine Reuptake Inhibitor Start: 02-03-2025 take 1 capsule by mouth once daily Venlafaxine 75 mg capsule,extended release 24hr Active 75 mg PO daily February 03, 2025 12:00am Complies with drug therapy Start: 11-18-2021 End: 07-04-2022 take 1 capsule by mouth once daily venlafaxine ER (EFFEXOR XR) 75 mg 24 hr capsule Take 1 capsule by mouth once daily. 30 capsule 11 11/18/2021 07/04/2022 Discontinued Start: 06-16-2021 End: 09-18-2023 take 1 capsule by mouth every twenty-four hours Venlafaxine 150 mg capsule,extended release 24hr Discontinued mg PO June 16, 2021 12:00am September 18, 2023 3:15pm Start: 06-16-2021 End: 09-18-2023 Venlafaxine Active MG PO Nov [facility] 2020 10:12am Start: 05-21-2021 End: 11-18-2021 take 1 capsule by mouth once daily venlafaxine ER (EFFEXOR XR) 150 mg 24 hr capsule Take 1 capsule by mouth once daily. 30 capsule 5 05/21/2021 11/18/2021 Discontinued (Dosage adjustment) Start: 07-24-2020 End: 05-20-2021 take 1 capsule by mouth once daily venlafaxine ER (EFFEXOR XR) 75 mg 24 hr capsule Take 1 capsule by mouth once daily. 30 capsule 11 07/24/2020 05/20/2021 Discontinued Start: 10-19-2015 End: 09-18-2023 take 1 tablet by mouth once daily Venlafaxine 75 MG tablet Discontinued 75 mg PO DAILY October 19, 2015 1:00am September 18, 2023 3:15pm Comment on above: Take 1 capsule by [facility] once daily. Vit C,P-Su-Hwcly-Lutein-Maria Luisa patricia (2 sources) Start: 10-19-2015 Vit C,V-Ec-Qrrls-Lutein-Z eaxan Active 1 EACH PO DAILY October 19, 2015 2:06pm Start: 10-19-2015 End: 09-18-2023 Vit C,M-Qg-Pnjle-Lutein-Zeax an Discontinued 1 EACH PO DAILY October 19, 2015 12:00am September 18, 2023 2:15pm VITAMIN E 400IU SOFTGEL (20 sources) Start: 06-02-2003 VITAMIN E 400I U SOFTGEL Take one(1) capsule twice daily. 0 06/02/2003 Active Comment on above: Take one(1) capsule twice daily. Completed/Discontinued Medications Medication Drug Class(es) Dates Sig (Normalized) Sig (Original) acetaminophen 325 mg / HYDROcodone bitartrate 5 mg oral tablet (1 source) Opioid Agonist Start: 08-22-2023 End: 08-28-2023 take 1 tablet by mouth every six hours as needed HYDROcodone-acetami nophen (NORCO) 5-325 mg per tablet 1 tablet acetaminophen 325 mg / oxyCODONE hydrochloride 5 mg oral tablet (20 sources) Opioid Agonist Start: 06-16-2021 End: 09-18-2023 Oxycodone-Acetamino phen 1 TABLET tablet Discontinued 1 {tbl} PO EVERY 6 HOURS NEEDED as needed for pain 20 5 0 June 16, 2021 September 18, 2023 3:14pm Closed fracture of right scapula Start: 06-16-2021 End: 09-18-2023 take 1 tablet by mouth every six hours as needed Oxycodone-Acetaminophen Discontinued 1 TABLET PO EVERY 6 HOURS NEEDED 20 5 June 16, 2021 September 18, 2023 2:14pm Start: 10-24-2015 End: 11-01-2015 Oxycodone-Acetaminophen 1 TA BLET tablet Discontinued 2 {tbl} PO EVERY 6 HOURS NEEDED as needed for Severe Pain (-05/19) 60 0 October 24, 2015 12:00am November 01, 2015 9:11am Start: 10-24-2015 End: 11-01-2015 take 2 tablets by mouth every six hours as needed Oxycodone-Acetaminophen Discontinued 2 TABLET PO EVERY 6 HOURS NEEDED 60 October 24, 2015 10:18am November 01, 2015 9:11am ascorbic acid 500 mg oral tablet (20 sources) Vitamin C Start: 12-17-2007 End: 09-18-2023 take 1 tablet by mouth twice daily Ascorbic Acid (Vitamin C) 500 mg tablet Discontinued 500 mg PO TWICE A DAY August 28, 2023 1:00am September 18, 2023 3:14pm Supplement Start: 12-17-2007 ascorbic acid( VITAMIN C 500 MG TAB) Take one(1) tablet two(2) times daily. 0 0 12/17/2007 Active Comment on above: Take one(1) tablet t wo(2) times daily. atorvastatin 10 mg oral tablet (20 sources) HMG-CoA Reductase Inhibitor Start: 08-21-2023 End: 08-28-2023 take 10 mg by mouth once daily 10 mg, Oral, Nightly, First dose on Thu08/21/23 at 2100 Start: 11-18-2021 End: 01-12-2023 take 1 tablet by mouth once daily atorvastatin (LIPITOR) 20 mg tablet Take 1 tablet by mouth once daily. 30 tablet 11/18/2021 12/01/2022 Discontinued Start: 05-20-2017 End: 09-18-2023 take 1 tablet by mouth once daily Atorvastatin 40 MG tablet Discontinued 40 mg PO DAILY 30 0 May 20, 2017 12:00am September 18, 2023 3:14pm Comment on above: Take 1 tablet by [facility] once daily. Biotin (20 sources) Start: 08-28-2023 End: 09-18-2023 biotin Discontinued 1 NMA PO DAILY August 28, 2023 1:00am September 18, 2023 3:14pm Supplement Start: 08-28-2023 End: 09-18-2023 biotin Discontinued 1 NMA PO DAILY August 28, 2023 1:00am September 18, 2023 3:14pm Start: 08-28-2023 End: 09-18-2023 take 1 capsule by mouth once daily biotin Discontinued 1 CAP PO DAILY August 28, 2023 12:00am September 18, 2023 2:14pm take 1 capsule by mo [facility] once daily BIOTIN ORAL Take 1 capsule by mouth daily . Active End: 02-16-2024 BIOTIN ORAL Take by mouth on ce daily. 0 02/16/2024 Discontinued take 1 capsule by mo ut once daily BIOTIN ORAL Take 1 capsule by mouth daily . 0 Active take 1 capsule by mo [facility] once daily BIOTIN ORAL Take 1 capsule by mouth daily . 0 BIOTIN ORAL Take by mouth once daily. 0 Active Comment on above: Take by mouth once d aily. bisacodyl 10 mg rectal suppository (1 source) Stimulant Laxative Start: 08-25-19 End: 08-28-19 bisacodyL (DULCOLAX) suppository 10 mg calcium chloride 0.0014 meq/ml / potassium chloride 0.004 meq/ml / sodium chloride 0.103 meq/ml / sodium lactate 0.028 meq/ml injectable solution (2 sources) Start: 08-22-19 End: 08-24-19 take 100 mL intravenously every hour 100 mL/hr, Intravenous, Continuous, Starting on 08/22/23 at 1200, PACU (only) Start: 08-22-2023 End: 08-24-2023 lactated Ringers infusion ceFAZolin 2000 mg injection (1 source) Cephalosporin Antibacterial Start: 08-22-2023 End: 08-23-2023 take 2000 mg intravenously every eight hours 2,000 mg, Intravenous, at 100 mL/hr, Every 8 hours, First dose on 08/22/23 at 1215, For 3 doses Starting in pacu Indication (POST PROCEDURE): Ortho chlorpheniramine maleate 4 mg oral tablet (13 sources) Histamine-1 Receptor Antagonist Start: 03-21-2020 End: 09-18-2023 Chlorpheniramine Maleate (Chlortabs) 4 mg tablet Discontinued 4 mg PO Q8H as needed for Allergies March 21, 2020 12:00am September 18, 2023 3:14pm do not exceed 2 doses per 24 hrs COMPOUNDED PRESCRIPTION (20 sources) Start: 02-09-2018 End: 02-16-2024 COMPOUNDED PRESCRIPTION Scopolamine 1.5 patch Apply first patch 4 hours to hairless area behind ear prior to travel then change every 72 hour while traveling 5 Patch 0 02/09/2018 02/16/2024 Discontinued Start: 02-09-2018 COMPOUNDED PRE SCRIPTION Scopolamine 1.5 patch Apply first patch 4 hours to hairless area behind ear prior to travel then change every 72 hour while traveling 5 Patch 0 02/09/2018 Active Comment on above: Scopolamine 1.5 patc h Apply first patch 4 hours to hairless area behind ear prior to travel then change every 72 hour while traveling cyclobenzaprine hydrochloride 10 mg oral tablet (8 sources) Muscle Relaxant Start: 12-04-19 End: 04-09-20 take 1 tablet by mouth every eight hours as needed cyclobenzaprine (FLEXERIL) 10 mg tablet Take 1 tablet by mouth three times daily as needed for muscle spasm. 18 tablet 0 12/03/2021 04/09/2022 Discontinued Comment on above: Take 1 tablet by luis three times daily as needed for muscle spasm. diphenhydrAMINE hydrochloride 25 mg oral tablet (14 sources) Histamine-1 Receptor Antagonist Start: 08-27-19 End: 08-28-19 diphenhydrAMINE (BENADRYL) tablet 50 mg Start: 10-19-2015 End: 03-21-2020 take 2 capsules by mouth at bedtime Diphenhydramine Hcl 25 MG capsule Discontinued 50 mg PO AT BEDTIME October 19, 2015 1:00am March 21, 2020 2:58pm Start: 10-19-2015 End: 03-21-2020 take 50 mg by mouth at bedtime Diphenhydramine Hcl Dis continued 50 MG PO AT BEDTIME October 19, 2015 2:06pm March 21, 2020 2:58pm docusate sodium 50 mg / sennosides, chcf 8.6 mg oral tablet (20 sources) Start: 05-19-2017 End: 03-21-2020 Sennosides-Docusate Sodium 1 TABLET tablet Discontinued 2 {tbl} PO TWICE A DAY May 19, 2017 12:00am March 21, 2020 2:57pm Start: 05-19-2017 End: 03-21-2020 take 2 tablets by mouth twice daily Sennosides-Docusate Sodium Discontinued 2 TABLET PO TWICE A DAY May 19, 2017 10:53pm March 21, 2020 2:57pm take 1 tablet by [facility] once daily senna-docusate (SENNA-S) 8.6-50 mg Take 1 (one) tablet by mouth daily . Active DULoxetine 20 mg delayed release oral capsule (20 sources) Serotonin and Norepinephrine Reuptake Inhibitor Start: 07-04-2022 End: 02-03-2025 take 1 capsule by mouth once daily Duloxetine 20 mg capsule,delayed release(DR/EC) Discontinued 20 mg PO DAILY August 28, 2023 1:00am February 03, 2025 2:36pm Mood Start: 05-23-2022 End: 07-04-2022 take 1 capsule by mouth once daily DULoxetine (CYMBALTA) 30 mg capsule Take 1 capsule by mouth once daily. 30 capsule 05/23/2022 07/04/2022 Discontinued Comment on above: Take 1 capsule by [facility] once daily. 0.3 ml enoxaparin sodium 100 mg/ml prefilled syringe (2 sources) Low Molecular Weight Heparin Start: 08-24-2023 End: 08-28-2023 enoxaparin (LOVENOX) syringe 30 mg Start: 08-23-2023 End: 08-28-2023 inject 0.4 mL by subcutaneous injection once daily enoxaparin (LOVENOX) 40 mg/0.4 mL Syrg Inject 0.4 mL (40 mg total) under the skin daily for 21 days . 8.4 mL 0 08/23/2023 08/28/2023 Discontinued (Stop Taking at Discharge) fentaNYL (SUBLIMAZE) inj syringe 25 mcg (1 source) Start: 08-22-2023 End: 08-22-2023 25 mcg, Intravenous, Every 5 min PRN, Pain, Starting on 08/22/23 at 1107, For 4 doses, PACU (only) [] Do not give more than 100 mcg while in PACU. Flaxseed Oil-[place] 3,6,9 (2 sources) Start: 10-19-2015 End: 10-24-2015 Flaxseed Oil-[place] 3,6,9 Discontinued 1 EACH PO TWICE A DAY October 19, 2015 2:06pm October 24, 2015 10:25am Start: 10-19-2015 End: 10-24-2015 Flaxseed Oil-[place] 3,6,9 Dis continued 1 EACH PO TWICE A DAY October 19, 2015 12:00am October 24, 2015 9:25am Flaxseed Oil-[place] 3,6,9 1 EACH capsule (11 sources) Start: 10-19-2015 End: 10-24-2015 Flaxseed Oil-[place] 3,6,9 1 EACH capsule Discontinued 1 NMA PO TWICE A DAY October 19, 2015 1:00am October 24, 2015 10:25am fluticasone propionate 0.05 mg/actuat metered dose nasal spray (20 sources) Corticosteroid Start: 08-28-2023 End: 05-05-2025 take 50 ug nasal route once daily as needed Fluticasone Propionate (24 Hour Allergy Relief) 50 mcg/actuation spray,suspension Discontinued 1 NMA INTRANASAL DAILY as needed for allergy symptoms August 28, 2023 1:00am May 05, 2025 2:08pm administer into each nostril Start: 08-28-2023 take 1 spray(s) nasa l route once daily Fluticasone Propionate (24 Hour Allergy Relief) 50 mcg/actuation spray,suspension Active 1 SPRAY INTRANASAL DAILY August 28, 2023 12:00am administer into each nostril Start: 01-07-2019 take 1 spray(s) nasa l route once daily fluticasone (FLONASE) 50 mcg/actuation nasal spray Indications: Allergic rhinitis, unspecified seasonality, unspecified trigger Use 1 [place] in each nostril once daily. For allergy season 01/07/2019 Active Start: 10-19-2015 End: 10-23-2020 Fluticasone Propionate 1 SPR AY spray,suspension Discontinued 2 NMA NASAL DAILY NEEDED as needed for Nasal Congestion October 19, 2015 1:00am October 23, 2020 2:31pm Start: 10-19-2015 End: 10-23-2020 Fluticasone Propionate Disco ntinued 2 SPRAY NASAL DAILY NEEDED October 19, 2015 2:06pm October 23, 2020 2:31pm Comment on above: Use 1 [place] in each nostril once daily. For allergy season gabapentin 100 mg oral capsule (20 sources) Anti-epileptic Agent Start: 2023 End: 2025 take 1 capsule by mouth at bedtime Gabapentin 100 mg capsule Discontinued 100 mg PO AT BEDTIME November 10, 2024 12:00am April 04, 2025 2:18pm Comment on above: Take 1 capsule by [facility] daily at bedtime for 180 days. 0.5 ml HYDROmorphone hydrochloride 1 mg/ml prefilled syringe (2 sources) Opioid Agonist Start: 2023 End: 2023 take 0.5 mg intravenously every three hours as needed HYDROmorphone (DILAUDID) injection 0.5 mg ibuprofen 600 mg oral tablet (13 sources) Nonsteroidal Anti-inflammatory Drug Start: 2015 End: 2015 take 1 tablet by mouth every six hours as needed for pain Ibuprofen 600 MG tablet Discontinued 600 mg PO EVERY 6 HOURS NEEDED as needed for Mild-Mod Pain (-12/17) October 19, 2015 1:00am October 24, 2015 10:25am 1 ml ketorolac tromethamine 30 mg/ml injection (1 source) Nonsteroidal Anti-inflammatory Drug, Cyclooxygenase Inhibitor Start: 2023 End: 2023 take 15 mg intravenously every six hours as needed for pain 15 mg, Intravenous, Every 6 hours PRN, mild pain, Starting on 08/22/23 at 1238, For 48 hours lidocaine 0.04 mg/mg medicated patch (1 source) Antiarrhythmic, Amide Local Anesthetic Start: 2023 End: 2023 lidocaine patch 1 patch magnesium gluconate 500 mg oral tablet (13 sources) Start: 2019 End: 2020 take 1 tablet by mouth once daily Magnesium Gluconate 27 mg magnesium (500 mg) tablet Discontinued 27 mg PO DAILY March 21, 2020 12:00am October 23, 2020 2:31pm meclizine hydrochloride 25 mg oral tablet (20 sources) Antiemetic Start: 2015 End: 2023 take 2 tablets by mouth once daily as needed for dizziness Meclizine 25 MG tablet Discontinued 50 mg PO DAILY NEEDED as needed for Dizziness October 19, 2015 1:00am September 18, 2023 3:14pm Start: 10-19-2015 End: 09-18-2023 take 50 mg by mouth once daily as needed Meclizine Active 50 MG PO DAILY NEEDED October 19, 2015 2:32pm Comment on above: Take [address] [facility] once daily as needed (dizziness/motion sickness). methocarbamol 500 mg oral tablet (15 sources) Muscle Relaxant Start: End: take 1 tablet by mouth three times daily as needed for muscle spasms Methocarbamol 500 mg tablet Discontinued 500 mg PO THREE TIMES A DAY as needed for Muscle Spasms August 28, 2023 1:00am November 10, 2024 11:31am 2 ml metoclopramide 5 mg/ml injection (3 sources) Dopamine-2 Receptor Antagonist Start: End: metoclopramide (REGLAN) injection 5 mg Start: 08-22-2023 End: 08-22-2023 metoclopramide (REGLAN) tabl et 5 mg Start: 08-21-2023 End: 08-21-2023 metoclopramide (REGLAN) inje ction 10 mg metoprolol tartrate 25 mg oral tablet (13 sources) beta-Adrenergic Sera Start: 03-21-2020 End: 10-23-2020 Metoprolol Tartrate 25 mg tablet Discontinued 12.5 mg PO TWICE A DAY March 21, 2020 12:00am October 23, 2020 2:29pm Start: 03-21-2020 End: 10-23-2020 take 12.5 mg by mouth twice daily Metoprolol Tartrate Discontinued 12.5 MG PO TWICE A DAY March 21, 2020 12:58pm October 23, 2020 2:29pm naloxone (NARCAN) injection 0.1 mg (1 source) Start: 08-21-2023 End: 08-28-2023 naloxone (NARCAN) injection 0.1 mg naproxen 250 mg oral tablet (20 sources) Nonsteroidal Anti-inflammatory Drug Start: 09-18-2023 End: 11-10-2024 take 1 tablet by mouth four times daily as needed for pain Naproxen 250 mg Tablet Discontinued 250 mg PO 4 TIMES DAILY NEEDED as needed for Pain Score 1-10 0 0 September 18, 2023 1:00am November 10, 2024 11:31am Start: 10-19-2015 End: 10-24-2015 take 1 tablet by mouth every twelve hours as needed for pain Naproxen Sodium (Aleve) 220 MG tablet Discontinued 220 mg PO EVERY 12 HOURS NEEDED as needed for Mild-Mod Pain (1-5/10) October 19, 2015 1:00am October 24, 2015 10:25am End: 04-09-2022 NAPROXEN (NAPROSYN ORAL) [place] e by mouth as needed. 0 04/09/2022 Discontinued NAPROXEN (NAPROS YN ORAL) Take by mouth as needed. 0 Active Comment on above: Take by mouth as nee ded. 4 TIMES DAILY NEE DED niacin 500 mg extended release oral capsule (16 sources) Nicotinic Acid Start: 06-24-2017 End: 11-18-2021 take 2 capsules by mouth twice daily before mealtime niacin 500 mg CR capsule Take 2 capsules by mouth twice daily before meals. 0 06/24/2017 11/18/2021 Discontinued (Other) Start: 10-19-2015 End: 03-21-2020 take 1 tablet by mouth twice daily Niacin 1,000 MG tablet extended release 24 hr Discontinued 1000 mg PO TWICE A DAY October 19, 2015 1:00am March 21, 2020 2:57pm Comment on above: Take 2 capsules by m outh twice daily before meals. nitrofurantoin, macrocrystals 25 mg / nitrofurantoin, monohydrate 75 mg oral capsule (3 sources) Nitrofuran Antibacterial Start: 10-28-19 End: 11-04-19 take 1 capsule by mouth twice daily nitrofurantoin monohydrate and macrocrystal (MACROBID) 100 mg capsule Indications: Dysuria Take 1 capsule by mouth two times a day for 7 days. 14 capsule 10/27/2024 11/03/2024 Start: 03-26-2024 End: 03-31-2024 take 1 capsule by mouth twice daily nitrofurantoin monohydrate and macrocrystal (MACROBID) 100 mg capsule Indications: Burning with urination , Urinary tract infection with hematuria, site unspecified Take 1 capsule by mouth two times a day for 5 days. 10 capsule 03/26/2024 03/31/2024 Active nitroglycerin 0.4 mg sublingual tablet (20 sources) Nitrate Vasodilator Start: 02-23-2020 End: 05-05-2025 Nitroglycerin 0.4 mg tablet, sublingual Discontinued 0.4 mg SL every 5 to 15 minutes as needed for chest pain March 21, 2020 12:00am May 05, 2025 2:08pm do not exceed 3 doses per episode Start: 02-23-2020 nitroglycerin sublingual (NITROQUICK) 0.4 mg SL tablet Indications: Exertional chest pain Dissolve 0.4mg tab (1tab) under tongue every 5min as needed for chest pain. If no response after max 3 tabs go to ED/notify doctor. 1 Bottle of 25 1 02/23/2020 Active Comment on above: Dissolve 0.4mg tab ( 1tab) under tongue every 5min as needed for chest pain. If no response after max 3 tabs go to ED/notify doctor. 2 ml ondansetron 2 mg/ml injection (2 sources) Serotonin-3 Receptor Antagonist Start: 08-22-19 End: 08-22-19 take 4 mg intravenously every twenty-four hours as needed for nausea and vomiting 4 mg, Intravenous, Once as needed, nausea, vomiting, Starting on 08/22/23 at 1107, For 1 dose, PACU (only) Administer first as needed for nausea/vomiting, or as directed by anesthesia Start: 08-21-2023 End: 08-21-2023 ondansetron (ZOFRAN) injecti on 4 mg ondansetron (ZOFRAN-ODT) disintegrating tablet 4 mg (1 source) Start: 08-21-2023 End: 08-28-2023 take 1 tablet by mouth every six hours as needed for nausea and vomiting ondansetron (ZOFRAN-ODT) disintegrating tablet 4 mg abuse-deterrent 12 hr oxyCODONE hydrochloride 10 mg extended release oral tablet (13 sources) Opioid Agonist Start: 10-24-2015 End: 11-01-2015 take 1 tablet by mouth twice daily Oxycodone (Oxycontin) 10 MG tablet Discontinued 10 mg PO TWICE A DAY 30 0 October 24, 2015 12:00am November 01, 2015 9:11am polyethylene glycol 3350 87383 mg powder for oral solution (15 sources) Osmotic Laxative Start: 08-21-2023 End: 11-10-2024 take 17 g by mouth once daily Polyethylene Glycol 3350 17 gram powder in packet Discontinued 17 g PO DAILY August 28, 2023 1:00am November 10, 2024 11:31am Constipation polypodium leucotomos 240 mg oral capsule (20 sources) Start: 03-21-2020 End: 09-18-2023 Polypodium Leucotomos Extract (Heliocare) 240 mg capsule Discontinued mg PO .M/W/F March 21, 2020 12:00am September 18, 2023 3:14pm polypodium leuco tomos extract (HELIOCARE ORAL) Take 1 tablet by mouth as needed (Hold during the winter). Active polypodium leuco tomos extract (HELIOCARE ORAL) Take 1 tablet by mouth as needed. Active polypodium leuco tomos extract (HELIOCARE ORAL) Take by mouth. Active polypodium leuco tomos extract (HELIOCARE ORAL) Take by mouth. 0 Active Comment on above: Take by mouth. Prenat.Vits,Luis,Min-Ir on-Folic tablet (11 sources) Start: End: Prenat.Vits,Luis,Min-I nicola-Folic tablet Discontinued 1 {tbl} PO DAILY March 21, 2020 12:00am September 18, 2023 3:15pm 10 ml propofol 10 mg/ml injection (1 source) General Anesthetic Start: End: propofoL (DIPRIVAN) injection pseudoephedrine hydrochloride 30 mg oral capsule (13 sources) alpha-Adrenergic Agonist Start: End: take 1 capsule by mouth once Pseudoephedrine Hcl 30 mg capsule (abuse-resistant) Discontinued 30 mg PO ONCE March 21, 2020 12:00am September 18, 2023 3:15pm rivaroxaban 10 mg oral tablet (13 sources) Factor Xa Inhibitor Start: End: take 1 tablet by mouth once daily Rivaroxaban (Xarelto) 10 MG tablet Discontinued 10 mg PO DAILY@0600 30 0 October 24, 2015 12:00am November 01, 2015 9:11am 72 hr scopolamine 0.0139 mg/hr transdermal system (20 sources) Anticholinergic Start: End: Scopolamine Base 1 mg over 3 days patch 3 day Discontinued 1 NMA TD Every 3 Days as needed for As needed for Travel August 28, 2023 1:00am September 18, 2023 3:15pm Start: 02-01-2021 scopolamine (T RANSDERM-SCOP) 1 mg over [address] 1.5 patches on the skin every 72 hours As needed for travel . 02/01/2021 Active Start: 03-21-2020 End: 10-23-2020 Scopolamine Base 1 mg over 3 days patch 3 day Discontinued 1 NMA TD Every 3 Days as needed for Pain Or Fever March 21, 2020 12:00am October 23, 2020 2:31pm Comment on above: Apply 1 Patch as dir ected every 72 hours. Senna-Docusate Sodium tablet (11 sources) Start: 08-28-2023 End: 11-10-2024 Senna-Docusate Sodium tablet Discontinued 1 {tbl} PO DAILY August 28, 2023 1:00am November 10, 2024 11:31am Constipation Start: 08-28-2023 End: 11-10-2024 Senna-Docusate Sodium tablet Discontinued 1 {tbl} PO DAILY August 28, 2023 1:00am November 10, 2024 11:31am sucralfate 1000 mg oral tablet (20 sources) Aluminum Complex Start: 08-28-2023 End: 09-18-2023 take 1 tablet by mouth every six hours Sucralfate (Carafate) 1 gram tablet Discontinued 1 g PO EVERY 6 HOURS August 28, 2023 1:00am September 18, 2023 3:15pm GERD Start: 08-21-2023 End: 08-28-2023 1 g, Oral, 4 times daily, Fi rst dose on Thu08/21/23 at 2100 Administer on an empty stomach. Do not administer antacids within 30 minutes of administration of sucralfate. In general, separate administration of other oral medications and sucralfate by at least 2 hours Enteral feed should be stopped at least 1 hour before dose and not re-started for 1 hour post-dose. A longer break may be prudent in patients with delayed gastric emptying. Start: 03-21-2020 End: 10-23-2020 take 1 tablet by mouth three times daily as needed for pain Sucralfate 1 gram tablet Discontinued 1 g PO THREE TIMES A DAY as needed for Pain Or Fever March 21, 2020 2:57pm October 23, 2020 2:31pm Start: 06-24-2017 End: 07-20-2024 take 1 tablet by mouth four times daily sucralfate (CARAFATE) 1 gram tablet Take 1 (one) tablet (1 g total) by mouth 4 (four) times a day . 01/14/2022 Active Comment on above: Take 1 tablet by luis th four times daily. Dissolve in 1 TBSP of water, before meals and at bedtime as directed sulfamethoxazole 800 mg / trimethoprim 160 mg oral tablet (5 sources) Dihydrofolate Reductase Inhibitor Antibacterial, Sulfonamide Antimicrobial Start: End: take 1 tablet by mouth twice daily sulfamethoxazol e-trimethoprim (BACTRIM DS) 800-160 mg per tablet Take 1 tablet by mouth two times a day for 4 days. 8 tablet 02/25/2025 03/01/2025 Start: 10-31-2024 End: 11-07-2024 take 1 tablet by mouth twice daily sulfamethoxazole-trimethoprim (BACTRIM D S) 800-160 mg per tablet Take 1 tablet by mouth two times a day for 7 days. 14 tablet 10/31/2024 11/07/2024 Active Vit C,D-Ed-Rwjlk-Lutein-Zeax an 1 EACH capsule (11 sources) Start: 10-19-2015 End: 09-18-2023 take 1 capsule by mouth once daily Vit C,J-Uv-Lmnil-Lutein-Zeaxan 1 EACH capsule Discontinued 1 NMA PO DAILY October 19, 2015 1:00am September 18, 2023 3:15pm vitamin e 180 mg oral capsul e (20 sources) Start: 08-22-2023 End: 08-28-2023 take 400 [IU] by mouth twice daily 400 Units, Oral, 2 times daily, First dose on 08/22/23 at 0900 DO NOT CRUSH OR CHEW. Start: 03-21-2020 Vitamin E (Dl, Acetate) 400 unit capsule Active 400 U PO DAILY March 21, 2020 12:00am Supplement Complies with drug therapy Start: 10-19-2015 End: 10-24-2015 take 1 capsule by mouth twice daily Vitamin E 400 UNIT capsule Discontinued 400 U PO TWICE A DAY October 19, 2015 1:00am October 24, 2015 10:25am Start: 06-02-2003 take 1 capsule by [facility] twice daily vitamin E 400 UNIT capsule Take 1 (one) capsule (400 Units total) by mouth 2 (two) times a day . 06/02/2003 Active Zinc (3 sources) End: 11-18-2021 Zinc 50 mg tab Take by mouth once daily. 0 11/18/2021 Discontinued (Other) Zinc 50 mg tab T jayy by mouth once daily. 0 Active Comment on above: Take by mouth once d aily. zinc acetate 50 mg oral capsule (13 sources) Start: 03-21-20 End: 10-24-19 21 take 1 capsule by mouth once daily Zinc Acetate 50 mg (zinc) capsule Discontinued 50 mg PO DAILY March 21, 2020 12:00am October 23, 2020 2:31pm swallow whole; do not chew/break/dissolve/ open 100 ml zoledronic acid 0.05 mg/ml injection (11 sources) Bisphosphonate Start: 07-07-20 End: 08-07-20 zoledronic acid 5 mg PREMIX piggyback (RECLAST) Start: 05-23-2022 End: 06-22-2022 zoledronic acid 5 mg PREMIX piggyback (RECLAST) Start: 05-08-2021 End: 06-07-2021 zoledronic acid 5 mg PREMIX piggyback (RECLAST) Problems Active Problems Problem Classification Problem Date Documented Da te Episodic/Chronic Abdominal pain (5 sources) Right upper quadrant pain; Translations: [Right upper quadrant pain] Episodic Acute cerebrovascular disease (20 sources) Cerebrovascular accident; Translations: [Cerebral infarction, unspecified] Onset: 7 Resolved: 7 08-28-2023 Chronic Attention-deficit, conduct, and disruptive behavior disorders (4 sources) Concern about breast appearance; Translations: [Other symptoms and signs involving appearance and behavior] 09-09-2024 Episodic Conditions associated with dizziness or vertigo (1 source) Dizziness; Translations: [Dizziness and giddiness] 04-06-2024 Episodic Coronary atherosclerosis and other heart disease (13 sources) Non-obstructive atherosclerosis of coronary artery; Translations: [Atherosclerotic heart disease of [place] coronary artery without angina pectoris] 03-26-2020 Chronic Deficiency and other anemia (2 sources) Iron deficiency anemia; Translations: [Iron deficiency anemia, unspecified] Episodic Diabetes mellitus without complication (2 sources) Impaired fasting glycemia; Translations: [Impaired fasting glucose] 02-01-2024 Episodic Disorders of lipid metabolism (20 sources) Hyperlipidemia; Translations: [Hyperlipidemia, unspecified] Onset: 5 10-16-2015 Chronic Esophageal disorders (20 sources) Gastroesophageal reflux disease without esophagitis; Translations: [Gastro-esophageal reflux disease without esophagitis] Onset: 6 08-05-2021 Chronic Fluid and electrolyte disorders (4 sources) Hypokalemia; Translations: [Hypokalemia] Onset: 5 10-01-2023 Episodic Fracture of lower limb (20 sources) Closed fracture of shaft of femur; Translations: [Displaced oblique fracture of shaft of right femur, initial encounter for closed fracture] Onset: 4 08-21-2023 Episodic Fracture of neck of femur (hip) (12 sources) Closed fracture of hip; Translations: [Fracture of unspecified part of neck of right femur, initial encounter for closed fracture] 08-28-2023 Episodic Fracture of upper limb (20 sources) Closed fracture of scapula; Translations: [Fracture of unspecified part of scapula, right shoulder, initial encounter for closed fracture] 06-16-2021 Episodic Malaise and fatigue (20 sources) Fatigue; Translations: [Other fatigue] Onset: 4 Episodic Mood disorders (20 sources) Recurrent major depression in remission; Translations: [Major depressive disorder, recurrent, in remission, unspecified] Onset: 7 11-17-2016 Chronic Nonspecific chest pain (13 sources) Chest pain; Translations: [Chest pain, unspecified] 03-26-2020 Episodic Nutritional deficiencies (20 sources) Vitamin D deficiency; Translations: [Vitamin D deficiency, unspecified] Onset: 8 07-05-2018 Chronic Osteoarthritis (20 sources) Osteoarthritis of knee; Translations: [Unilateral primary osteoarthritis, unspecified knee] Onset: 5 02-14-2025 Chronic Osteoporosis (20 sources) Osteoporosis; Translations: [Age-related osteoporosis without current pathological fracture] Onset: 1 08-05-2021 Chronic Other acquired deformities (20 sources) Degenerative disorder of musculoskeletal system; Translations: [Other secondary scoliosis, site unspecified] 11-10-2024 Chronic Other aftercare (9 sources) Patient encounter status; Translations: [Other exterminator helper termite (current) drug therapy] Episodic Other aftercare (2 sources) Long-term current use of drug therapy; Translations: [Other exterminator helper termite (current) drug therapy] 07-20-2024 Episodic Other connective tissue disease (20 sources) History of total replacement of right hip joint; Translations: [Presence of right artificial hip joint] Onset: 4 08-05-2021 Chronic Other connective tissue disease (1 source) Cramp in lower limb; Translations: [Cramp and spasm] Episodic Other connective tissue disease (12 sources) Thigh pain; Translations: [Pain in unspecified thigh] 02-14-2025 Episodic Other connective tissue disease (12 sources) Pain in right lower limb; Translations: [Pain in right leg] 02-14-2025 Episodic Other fractures (1 source) Closed fracture thoracic vertebra; Translations: [Unspecified fracture of T11-T12 vertebra, initial encounter for closed fracture] Episodic Other fractures (9 sources) Fracture of tenth thoracic vertebra; Translations: [Unspecified fracture of T9-T10 vertebra, initial encounter for closed fracture] 01-12-2025 Episodic Other gastrointestinal disorders (20 sources) Constipation; Translations: [Constipation, unspecified] 08-05-2021 Episodic Other gastrointestinal disorders (1 source) Alteration in bowel elimination; Translations: [Change in bowel habit] Episodic Other gastrointestinal disorders (1 source) Altered bowel function; Translations: [Change in bowel habit] 06-17-2022 Episodic Other gastrointestinal disorders (1 source) Abdominal bloating; Translations: [Abdominal distension (gaseous)] 06-17-2022 Episodic Other liver diseases (1 source) Alkaline phosphatase raised; Translations: [Abnormal levels of other serum enzymes] 02-16-2024 Episodic Other lower respiratory disease (13 sources) Dyspnea; Translations: [Dyspnea, unspecified] 03-26-2020 Episodic Other nervous system disorders (1 source) Loss of sense of smell; Translations: [Anosmia] Episodic Other nervous system disorders (2 sources) Loss of taste; Translations: [Parageusia] Episodic Other nervous system disorders (4 sources) Burning feet; Translations: [Other disturbances of skin sensation] 10-01-2023 Episodic Other nervous system disorders (1 source) Other disturbances of skin sensation; Translations: [Burning sensation of feet] Onset: 5 Episodic Other non-traumatic joint disorders (1 source) Hip pain; Translations: [Pain in left hip] 07-20-2024 Episodic Other screening for suspected conditions (not mental disorders or infectious disease) (1 source) Encounter for other screening for malignant neoplasm of breast; Translations: [Encounter for breast cancer screening using non-mammogram modality] Onset: 5 Episodic Residual codes; unclassified (1 source) Postmenopausal state; Translations: [Asymptomatic menopausal state] 07-21-2023 Episodic Residual codes; unclassified (1 source) History of operation on musculoskeletal system; Translations: [Other specified postprocedural states] 08-17-2024 Episodic Spondylosis; intervertebral disc disorders; other back problems (20 sources) Degeneration of lumbar intervertebral disc; Translations: [Degeneration of intervertebral disc of lumbar region] 11-10-2024 Chronic Unclassified (2 sources) Dense breast tissue on mammogram, unspecified type; Translations: [Dense breast tissue on mammogram, unspecified type] Onset: 5 Unclassified (10 sources) M51.360 - Other intervertebral disc degeneration, lumbar region with discogenic back pain only Unclassified (8 sources) Degeneration of intervertebral disc of lumbar region Unclassified (20 sources) Contusion of right knee, initial encounter 02-03-2025 Unclassified (1 source) Low back pain, unspecified; Translations: [Low back pain, unspecified] Onset: 5 Unclassified (1 source) Other intervertebral disc degeneration, lumbar region with discogenic back pain only; Translations: [Other intervertebral disc degeneration, lumbar region with discogenic back pain only] Onset: 5 Unclassified (1 source) Other intervertebral disc degeneration, lumbar region without mention of lumbar back pain or lower extremity pain; Translations: [Other intervertebral disc degeneration, lumbar region without mention of lumbar back pain or lower extremity pain] Onset: 5 Urinary tract infections (19 sources) Urinary tract infectious disease; Translations: [Urinary tract infection, site not specified] Onset: 5 03-26-2024 Episodic Viral infection (1 source) Disease caused by 2019-nCoV; Translations: [COVID-19] Episodic Past or Other Problems Problem Classification Problem Date Documented Da te Episodic/Chronic Acute posthemorrhagic anemia (8 sources) Acute posthemorrhagic anemia; Translations: [Acute posthemorrhagic anemia] Onset: 08-23-2023 08-23-2023 Episodic Attention-deficit, conduct, and disruptive behavior disorders (1 source) Other symptoms and signs involving appearance and behavior; Translations: [Concern about appearance of breast] Onset: 09-20-2024 Episodic Deficiency and other anemia (20 sources) Anemia; Translations: [Anemia, unspecified] Onset: 01-29-2013 01-29-2013 Episodic E Codes: Fall (10 sources) Fall; Translations: [Unspecified fall, initial encounter] Onset: 08-21-2023 Episodic Genitourinary symptoms and ill-defined conditions (20 sources) Nocturia; Translations: [Nocturia] Onset: 07-12-2017 07-12-2017 Episodic Inflammation; infection of eye (except that caused by tuberculosis or sexually transmitteddisease) (20 sources) Uveitis; 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] Onset: 04-06-2017 04-06-2017 Episodic Nonmalignant breast conditions (19 sources) Lump in lower inner quadrant of left breast; Translations: [Unspecified lump in the left breast, lower inner quadrant] Onset: 09-20-2024 09-09-2024 Episodic Other aftercare (2 sources) Encounter for follow-up examination after completed treatment for conditions other than malignant neoplasm; Translations: [Encounter for follow-up examination after completed treatment for conditions other than malignant neoplasm] Onset: 02-19-2024 Episodic Other aftercare (1 source) Other alf (current) drug therapy; Translations: [Encounter for long-term current use of medication] Onset: 07-15-2024 Episodic Other and unspecified benign neoplasm (20 sources) Hemangioma of skin and subcutaneous tissue; Translations: [Hemangioma of skin and subcutaneous tissue] Onset: 03-26-2006 Resolved: 11-14-2015 11-14-2015 Episodic Other and unspecified benign neoplasm (20 sources) Benign neoplasm of skin of lower limb; Translations: [Other benign neoplasm of skin of unspecified lower limb, including hip] Onset: 02-28-2008 Resolved: 11-14-2015 11-14-2015 Episodic Other circulatory disease (20 sources) History of cerebrovascular accident; Translations: [Personal history of transient ischemic attack (TIA), and cerebral infarction without residual deficits] Onset: 06-19-2017 07-12-2017 Episodic Comment on above: lacunar ischemic inf arct in the right posterior putamen Other connective tissue disease (1 source) Pain in unspecified thigh; Translations: [Pain in unspecified thigh] Onset: 02-14-2025 Episodic Other connective tissue disease (1 source) Pain in right leg; Translations: [Pain in right leg] Onset: 02-14-2025 Episodic Other gastrointestinal disorders (20 sources) Irritable bowel syndrome; Translations: [Irritable bowel syndrome without diarrhea] Resolved: 05-16-2016 05-16-2016 Chronic Other injuries and conditions due to external causes (2 sources) Other injury of unspecified body region, initial encounter; Translations: [Other injury of unspecified body region, initial encounter] Onset: 09-11-2023 Episodic Other non-traumatic joint disorders (8 sources) Pain in unspecified knee; Translations: [Knee pain] Onset: 02-14-2025 02-14-2025 Episodic Other non-traumatic joint disorders (1 source) Pain in right knee; Translations: [Pain in right knee] Onset: 02-07-2025 Episodic Pathological fracture (8 sources) Primary osteoporosis; Translations: [Age-related osteoporosis with current pathological fracture, unspecified site, subsequent encounter for fracture with delayed healing] Onset: 08-05-2021 Episodic Residual codes; unclassified (20 sources) History of repair of hip joint; Translations: [Other specified postprocedural states] Onset: 10-01-2023 10-01-2023 Episodic Residual codes; unclassified (4 sources) Other general symptoms and signs; Translations: [Other general symptoms] Onset: 09-27-2024 09-27-2024 Episodic Spondylosis; intervertebral disc disorders; other back problems (20 sources) Thoracic and lumbosacral neuritis; Translations: [Thoracic or lumbosacral neuritis or radiculitis, unspecified] Onset: 11-10-2024 07-17-2005 Episodic Superficial injury; contusion (7 sources) Contusion of right knee; Translations: [Contusion of right knee, sequela] Onset: 02-14-2025 02-15-2025 Episodic Unclassified (2 sources) Patient encounter status 10-27-2024 Results Test Name Value Interpretation Reference Range Facility Laboratory - Chemistry and C hemistry - challengeOrdered By: Vanessa Stern on 05-05-2025 Bilirubin Ql (U) Negative [facility] Glucose Ql (U) Negative [facility] Ketones Ql (U) Negative [facility] pH (U) 6.0 [pH] [facility] Specific gravity (U) [Rel density] 1.020 [facility] Urobilinogen (U) [Mass/Vol] 0.4370460 mg/dL [facility] Laboratory - Hematology and Cell countsOrdered By: Vanessa Stern on 05-05-2025 Hemoglobin Ql (U) Small [facility] Laboratory - UrinalysisOrder ed By: Vanessa Stern on 05-05-2025 Nitrite Ql (U) Negative [facility] Protein Ql (U) Positive [facility] MR/ADDYamauri 05-05-2025 MR/ADDY [facility] [address], [address] [place] [address] OFFICE VISIT Date of Service: 05/05/25 MR#: [id number] Acct: [id number] Name: ANN MARIE BALDWINORAH COURTNEY (ANN MARIE) Rep #: [id number] : 1940 Provider: Dr. 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 Accompanied by: Self Is patient in pain?: Yes ( burning) Pain scale (1-10): 2 Allergies fentanyl Allergy (Verified 05/05/25 14:07) Itching codeine Adverse Reaction (Verified 05/05/25 14:07) Nausea/Vom/Diarrhea Penicillins Adverse Reaction (Verified 05/05/25 14:07) Unknown Medications ???Medication ???Instructions ???Recorded ???Confirmed ???Type cholecalciferol (vitamin D3) 25 1,000 unit PO BID Supplement 10/1805/05/25 History mcg (1,000 unit) tablet clopidogrel 75 mg tablet 75 mg PO DAILY antiplatelet #30 1 05/05/25 Rx tabs ascorbate calcium (vitamin C) 500 500 mg PO BID Supplement 03/21/20 05/05/25 History mg tablet aspirin 81 mg tablet,delayed 81 mg PO DAILY [facility] 05/05/25 History release (Adult Aspirin Regimen) vitamin E (dl, acetate) 180 mg 400 unit PO DAILY Supplement 03/2105/05/25 History (400 unit) capsule rosuvastatin 5 mg tablet (Crestor) 5 mg PO DAILY Cholesterol 05/05/25 History acetaminophen 500 mg tablet 1,000 mg (2 x 500 mg) PO Q6H PRN 0 09/18/23 05/05/25 Rx PRN Pain Score 1-10 #0 tabs potassium chloride 20 mEq 20 meq PO BIDCM 30 days #60 tabs 0 09/18/23 05/05/25 Rx tablet,extended release(part/cryst) magnesium 250 mg tablet 500 mg PO QDAY 11/10/24 05/05/25 H istory montelukast 10 mg tablet 10 mg PO QDAY 02/03/25 05/05/25 Hi story omeprazole 20 mg capsule,delayed 20 mg PO QDAY 02/03/25 05/05/25 Hi story release venlafaxine 75 mg capsule,extended 75 mg PO QDAY 02/03/25 05/05/25 History release 24 hr mometasone 50 mcg/actuation nasal 2 spray intranasal QDAY 05/05/25 05/05/25 History spray cephalexin 250 mg capsule 250 mg PO QHS #90 caps 05/08/25 R x Have you fallen in the past year?: No Nurse's Note: New Pt establish for frequent UTI. Estimates since around October has had 4 UTIs. Reports burning, dysuria and urgency. Occasional incontinence d/t not making to toilet then will be able to get a small amount of urine in toilet when leaning over. Initially urine culture then recently proteius organism. Was unable to tolerate keflex d/t bloating and felt ineffective with relieving sx. PVR 13. [facility] Medical History (Updated 05/23/25 @ 23:[address] Vanessa Stern MD) Neuropathy Skin cancer UTI (urinary tract infection) Back problem Arthritis History of fracture of femur Nonobstructive atherosclerosis of coronary artery Hyperlipidemia GERD (gastroesophageal reflux disease) IBS (irritable bowel syndrome) Osteoporosis History of CVA (cerebrovascular accident) (06/19/17) Osteoarthritis Surgical History History of tubal ligation History of surgery on lower extremity History of tonsillectomy and adenoidectomy History of left heart catheterization (03/26/20) History of total hip arthroplasty Family History Other Anxiety Heart disease Melanoma Social History household members: none Smoking Status: Former smoker alcohol intake: never substance use type: does not use what type of physical activity do you participate in: other frequency: other duration: other do you feel safe at home: Yes HPI HPI Urology Chief Complaint: urinary tract infections Details: RADHA BALDWIN, is a 85 F. She is here for evaluation and management of urinary tract infections. She usually has one a year, but she has had 4 since October. She gets urgency, burning, freuqency with her infections. No hematuria, fever or chills. No nausea, vomiting or increased back pain. She has never been seen by urology. She is voiding about 5 times during the day, 1-3 times at night. There is urge incontinence where she cannot make it to the bathroom. There is no stress incontinence with cough, laugh, sneeze, lifting, etc. She is using 2 pads in 24 hours when not infected. She does have more frequency in the mornings. No history of kidney stones. She is not sexually active. There is no sensation of vaginal bulgi (more content not included)... Normal [facility] No Panel InformationOrdered By: Vanessa Stern on 05-05-2025 Urine Leukocytes Negatve [facility] Orthopedic Visit Reporton Orthopedic Visit Report [facility] [address] [place] [address] OFFICE VISIT Date of Service: 04/18/25 MR#: [id number] Acct: [id number] Name: RADHA BALDWIN (ANN MARIE) Rep #: [id number] : 1940 Provider: ANAND bunch Age/Sex: 85/F [place] [facility] [place] Status: Signed Intake Vital Signs 03/02/25 12:59 04/04/25 14:12 04/18/25 11:08 Height 5 ft 2 in 5 ft 2 in 5 ft 2 in Weight: 126 lb BMI 23.0 Intake Visit Reasons: LEFT KNEE Chief Complaint: Left Knee 3rd Euflexxa Injection Accompanied by: Self Is patient in pain?: No Allergies fentanyl Allergy (Verified 04/18/25 11:12) Itching codeine Adverse Reaction (Verified 04/18/25 11:12) Nausea/Vom/Diarrhea Penicillins Adverse Reaction (Verified 04/18/25 11:12) Unknown Medications ???Medication ???Instructions ???Recorded ???Confirmed ???Type cholecalciferol (vitamin D3) 25 1,000 unit PO BID Supplement 10/1804/18/25 History mcg (1,000 unit) tablet clopidogrel 75 mg tablet 75 mg PO DAILY antiplatelet #30 1 04/18/25 Rx tabs ascorbate calcium (vitamin C) 500 500 mg PO BID Supplement 03/21/20 04/18/25 History mg tablet aspirin 81 mg tablet,delayed 81 mg PO DAILY Heart Health 04/18/25 History release (Adult Aspirin Regimen) nitroglycerin 0.4 mg sublingual 0.4 mg sublingual Q5-15M PRN chest 03/21/20 04/18/25 History tablet pain vitamin E (dl, acetate) 180 mg 400 unit PO DAILY Supplement 03/2104/18/25 History (400 unit) capsule fluticasone propionate 50 1 spray intranasal DAILY PRN 08/2804/18/25 History mcg/actuation nasal allergy symptoms spray,suspension (24 Hour Allergy Relief) rosuvastatin 5 mg tablet (Crestor) 5 mg PO DAILY Cholesterol 04/18/25 History acetaminophen 500 mg tablet 1,000 mg (2 x 500 mg) PO Q6H PRN 0 09/18/23 04/18/25 Rx PRN Pain Score 1-10 #0 tabs potassium chloride 20 mEq 20 meq PO BIDCM 30 days #60 tabs 0 09/18/23 04/18/25 Rx tablet,extended release(part/cryst) magnesium 250 mg tablet 500 mg PO QDAY 11/10/24 04/18/25 H istory montelukast 10 mg tablet 10 mg PO QDAY 02/03/25 04/18/25 Hi story omeprazole 20 mg capsule,delayed 20 mg PO QDAY 02/03/25 04/18/25 Hi story release venlafaxine 75 mg capsule,extended 75 mg PO QDAY 02/03/25 04/18/25 History release 24 hr Have you fallen in the past year?: No PFSH Medical History History of fracture of femur Nonobstructive atherosclerosis of coronary artery Hyperlipidemia GERD (gastroesophageal reflux disease) IBS (irritable bowel syndrome) Osteoporosis History of CVA (cerebrovascular accident) (06/19/17) Osteoarthritis Surgical History History of tubal ligation History of surgery on lower extremity History of tonsillectomy and adenoidectomy History of left heart catheterization (03/26/20) History of total hip arthroplasty Family History Other Heart disease Social History household members: none Smoking Status: Former smoker alcohol intake: never substance use type: does not use HPI LEFT KNEE Details: This documentation accurately reflects the service provided and the decisions made by me, Sofia Yoon, LEAD DESIGNER-C 04/18/25 0649. Part of today???s visit was documented by Karli Esquivel MA, acting as scribe. RADHA BALDWIN is a 85 year old F here today for 3rd Euflexxa left knee injection. Patient is noticing moderate improvements of OA symptoms, tolerating activity easier. Interesting completing today's series. No adverse reactions to last week's injection. ROS Const All systems reviewed are unremarkable except as noted in H and other (A O x 3, no apparent distress. No recent illness.) ENT Denies dizziness Card Denies chest pain, Denies dyspnea, Denies edema and Reports other (No palpitations) Resp Denies cough, Denies dyspnea and Reports other (No recent URI) GI Reports system reviewed and no additional complaints, except as documented, Denies nausea and Denies vomiting Musc Reports as per HPI, Reports abnormal gait, Reports arthralgias and Reports limited range of motion Neuro Yes abnormal gait and No dizziness Psych Reports system reviewed and no additional complaints, except as documented Manny/Lymph Denies easy bleeding and Denies easy bruising Ortho Exam General General: Yes no acute distress and Yes well groomed Neurologic: Yes alert and Yes oriented x3 Psychologic: Yes reasonable and appropriate Left Knee KNEE: Skin is pink, warm, dry and intact. There is no ecchymos (more content not included)... Normal [facility] CNOVon 04-13-2025 CNOV Office Visit (ENWSTR ) -- RADHA BALDWIN ([id number]) 1940 F Date Time Provider Department 04/13/25 1:40 PM RAMONE ODRMAN ENW[facility] During your visit today, we recorded the following information about you: Temperature Pulse Respiration Blood pressure 99 degrees 76/minute 18/minute 124/74 Weight 57.5 kg Ramone Dorman MD 04/15/2025 9:46 PM Addendum Endocrinology and Metabolism [place] Follow up note NAME: Radha Baldwin is a 85 year old old female PCP: Jonny Torres MD Chief Complaint: Osteoporosis HPI: Radha Baldwin is a 85 year old female here to discuss bone health. PMHx significant for fracture of femur as below Initial visit on 04/06/25 She is a retired nurse Calcium: Citracal Petites 600-800 mg BID. Consumes cheese daily and yogurt approximately twice weekly. Denies lactose intolerance or gluten sensitivity. Vitamin D: 2000 units daily Dietary and supplemental calcium intakes are adequate. Prior use of antiresporptives or other medications: Fosamax started in 2002, dcd in 2011. She used 16 months of Forteo from 2011- 2013. This was followed by [facility], 02/2014- 07/2023 Prior fragility fractures: She fractured right femur in Aug 2023, trying to cross a dog gate when she saw her "pants moving". Treated with hardware ("screws") Reports occasional pain, sometimes weather-related. - History of hip replacement 9 years ago, resulting in leg length discrepancy. - Reports balance issues and decreased physical activity since the fracture. No specific exercise reported Height loss: 1 inch Kidney stones: no History of corticosteroid use: no Has hx of GERD, for several years, treated with protonix History of malabsorption: no History of certain medication use: none Current or recent tobacco use: 60 years ago Caffeine intake: 1 cup of decaffeinated Alcohol use: occasional Use of lithium or thiazides: no History of hyperparathyroidism:not known Dental appointment: Goes very year, beginning of this year she had an appt and has no dental issues P:3 A:0 Menarche/LMP: Mentrual regularity: irregular History of BCP use: up until tubectomy she used control pills History of estrogen use: few months to a year after menopause History of : normal Menopause: natural at 58 She has no eating disorder Cancer history: skin cancer- melanoma and basal cell carcinoma, excised History of radiation exposure: no Family history of osteoporosis, calcium, or bone disorders: rickets in father Family history of hip fractures: no Interval history: 04/13/25: Patient is presenting after labs done for evaluation of bone health PAST MEDICAL HISTORY Diagnosis Date CVA (cerebral vascular accident) (HCC) 06/02/2017 [facility] acute ischemic right posterior putamen stroke on MRI ASA, Plavix atorvastatin. Follow up with Dr. Witt scheduled. 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 May 2017; treated at [facility] Irritable bowel syndrome Osteoporosis, unspecified Stroke (HCC) Thoracic or lumbosacral neuritis or radiculitis, unspecified Unspecified constipation Constipation PAST SURGICAL HISTORY Procedure Laterality Date ABDOMINAL SURGERY HX COLONOSCOPY 06/17/2022 repeat in 10 years COLONOSCOPY W/BIOPSY SINGLE/MULTIPLE 02/08/2013 normal appearing DILATION AND CURETTAGE DXAND/THER NONOBSTETRIC Dilation AND curettage EGD 06/17/2022 EGD TRANSORAL BIOPSY SINGLE/MULTIPLE 02/08/2013 duodenitis, gastritis JOINT REPLACEMENT HX LIG/TRNSXJ FLP TUBE ABDL/VAG APPR UNI/BI Tubal ligation TONSILLECTOMY HX TONSILLECTOMY PRIMARY/SECONDARY Tonsillectomy Current Outpatient Medications on File Prior to Visit Medication Sig cephALEXin (KEFLEX) 500 mg capsule Take 1 capsule by mouth three times a day for 10 days. coenzyme Q10 (COQ-10) 100 mg cap capsule Take 1 capsule by mouth two times a day. (Or 200 mg once daily) rosuvastatin (CRESTOR) 5 mg tablet Take 1 tablet by mouth daily at bedtime. mometasone (NASONEX) 50 mcg/actuation nasal spray Use 2 Sprays in each nostril once daily. INSTILL 2 SPRAYS IN EACH NOSTRIL ONCE DAILY montelukast (SINGULAIR) 10 mg tablet Take 1 tablet by mouth every afternoon. DULoxetine (CYMBALTA) 20 mg capsule Take 1 capsule by mouth once daily. potassium chloride (K-TAB) 10 mEq tablet Take 1 tablet by mouth two times a day. clopidogrel (PLAVIX) 75 mg tablet Take 1 tablet by mouth once daily. pantoprazole DR (PROTONIX) 40 mg tablet Take 1 tablet by mouth two times a day. Take on empty stomach, 1/2 hr before meal. (Patient taking differently: Take 40 mg by mouth once daily. Take on (more content not included)... Normal [facility] Orthopedic Visit Reporton Orthopedic Visit Report [facility] [address] [place] [address] OFFICE VISIT Date of Service: 04/11/25 MR#: [id number] Acct: [id number] Name: RADHA BALDWIN (ANN MARIE) Rep #: [id number] : 1940 Provider: ANAND bunch Age/Sex: 85/F [place] [facility] [place] Status: Signed Intake Vital Signs 03/02/25 12:59 04/04/25 14:12 Height 5 ft 2 in 5 ft 2 in Weight: 125 lb 125 lb BMI 22.8 22.8 Intake Visit Reasons: LEFT KNEE Chief Complaint: Left Knee 2nd Euflexxa Injection Accompanied by: Self Is patient in pain?: Yes Allergies fentanyl Allergy (Verified 04/11/25 10:58) Itching codeine Adverse Reaction (Verified 04/11/25 10:58) Nausea/Vom/Diarrhea Penicillins Adverse Reaction (Verified 04/11/25 10:58) Unknown Medications ???Medication ???Instructions ???Recorded ???Confirmed ???Type cholecalciferol (vitamin D3) 25 1,000 unit PO BID Supplement 10/1804/11/25 History mcg (1,000 unit) tablet clopidogrel 75 mg tablet 75 mg PO DAILY antiplatelet #30 1 04/11/25 Rx tabs ascorbate calcium (vitamin C) 500 500 mg PO BID Supplement 03/21/20 04/11/25 History mg tablet aspirin 81 mg tablet,delayed 81 mg PO DAILY Heart Health 04/11/25 History release (Adult Aspirin Regimen) nitroglycerin 0.4 mg sublingual 0.4 mg sublingual Q5-15M PRN chest 03/21/20 04/11/25 History tablet pain vitamin E (dl, acetate) 180 mg 400 unit PO DAILY Supplement 03/2104/11/25 History (400 unit) capsule fluticasone propionate 50 1 spray intranasal DAILY PRN 08/2804/11/25 History mcg/actuation nasal allergy symptoms spray,suspension (24 Hour Allergy Relief) rosuvastatin 5 mg tablet (Crestor) 5 mg PO DAILY Cholesterol 04/11/25 History acetaminophen 500 mg tablet 1,000 mg (2 x 500 mg) PO Q6H PRN 0 09/18/23 04/11/25 Rx PRN Pain Score 1-10 #0 tabs potassium chloride 20 mEq 20 meq PO BIDCM 30 days #60 tabs 0 09/18/23 04/11/25 Rx tablet,extended release(part/cryst) magnesium 250 mg tablet 500 mg PO QDAY 11/10/24 04/11/25 H istory montelukast 10 mg tablet 10 mg PO QDAY 02/03/25 04/11/25 Hi story omeprazole 20 mg capsule,delayed 20 mg PO QDAY 02/03/25 04/11/25 Hi story release venlafaxine 75 mg capsule,extended 75 mg PO QDAY 02/03/25 04/11/25 History release 24 hr Have you fallen in the past year?: No PFSH Medical History History of fracture of femur Nonobstructive atherosclerosis of coronary artery Hyperlipidemia GERD (gastroesophageal reflux disease) IBS (irritable bowel syndrome) Osteoporosis History of CVA (cerebrovascular accident) (06/19/17) Osteoarthritis Surgical History History of tubal ligation History of surgery on lower extremity History of tonsillectomy and adenoidectomy History of left heart catheterization (03/26/20) History of total hip arthroplasty Family History Other Heart disease Social History household members: none Smoking Status: Former smoker alcohol intake: never substance use type: does not use HPI LEFT KNEE Details: This documentation accurately reflects the service provided and the decisions made by me, Sofia Yoon, LEAD DESIGNER-C 04/11/25 1054. Part of today???s visit was documented by Gloria Smyth ATC, acting as scribe. RADHA BALDWIN is a 85 year old F here today for left knee 2nd Euflexxa injection. Patient states she does have some sporadic pain in the knee today. She denies any reactions or concerns from the first injection. Agree with above. Patient states she did get fairly good relief since last injection. She is able to tolerate activity easier and has stopped wearing her compression sleeve due to symptom improvement. ROS Const All systems reviewed are unremarkable except as noted in H and other (A O x 3, no apparent distress. No recent illness.) ENT Denies dizziness Card Denies chest pain, Denies dyspnea, Denies edema and Reports other (No palpitations) Resp Denies cough, Denies dyspnea and Reports other (No recent URI) GI Reports system reviewed and no additional complaints, except as documented, Denies nausea and Denies vomiting Musc Reports as per HPI, Reports abnormal gait, Reports arthralgias and Reports limited range of motion Neuro Yes abnormal gait and No dizziness Psych Reports system reviewed and no additional complaints, except as documented Manny/Lymph Denies easy bleeding and Denies easy bruising Ortho Exam General General: Yes no acute distress and Yes well groomed Neurologic: Yes alert and Yes oriented x3 Psychologic: Yes reasonab (more content not included)... Normal [facility] 25(OH)D3 [facility] 2024 25-hydroxyvitamin D3 [Mass/Vol] 67.6 ng/mL Normal 31.0-80.0 [facility] Comment on above: Order Comment: Speci men Type: URINE SPECIMEN [facility]ing Facility[facility] Address: [address] [place] [address] Performed By: #### 6 30-4, 80856-6 #### [facility] CLIA [id number] [address] [place] [address] [place] ALK PHOS BONE SPECon 025 ALK PHOSPHATASE, BONE 15.6 ug/L Normal [facility] Comment on above: Order Comment: Speci men Type: BLOOD SPECIMENOrdering Facility: [facility] Address: [address] [place] [address] Result Comment: INTE RPRETIVE INFORMATION: Bone Specific Alkaline Phosphatase Premenopausal Female: 4.5 - 16.9 ug/L Postmenopausal Female: 7.0 - 22.4 ug/L INTERPRETIVE INFORMATION: Bone Specific Alkaline Phosphatase Liver alkaline phosphatase can affect the measurement of bone specific alkaline phosphatase in this assay. Each 100 U/L of liver alkaline phosphatase contributes an additional 2.5 to 5.8 ug/L to the bone specific alkaline phosphatase result. Performed By: [facility] [address] [place] [address] Hosiery Repairer: Sammy Pierson MD, PhD CLIA Number: [id number] Performed By: #### A PBONE ####[facility] [id number] [place] [address] Collagen crosslinked C-telop eptide [Mass/Vol]on 04-07-2025 C TELOPEPTIDE, BETA CROSS LINKED 456 pg/mL Normal 152-858 [facility] Comment on above: Order Comment: Speci men Type: BLOOD SPECIMEN [facility] Address: [address] [place] [address] Performed By: #### 1 9123-9, 34472-3 #### [facility] CLIA [id number] [address] [place] [address] [place] Comprehensive metabolic 2000 panelon 04-07-2025 Albumin [Mass/Vol] 4.2 g/dL Normal 3.9-4.9 [facility] Comment on above: Order Comment: Speci men Type: BLOOD SPECIMENOrdering Facility: [facility] Address: [address] [place] [address] Performed By: #### 2 4323-8, 53153-2, 2776-08, 8 ####[facility] [id number] [address] [address] [place] ALP [Catalytic activity/Vol] 82 U/L Normal 34-123 [facility] Comment on above: Order Comment: Speci men Type: BLOOD SPECIMENOrdering Facility: [facility] Address: [address] [place] [address] Performed By: #### 2 4323-8, 41860-6, 2776-08, 8 ####[facility] [id number] [address] [address] [place] ALT [Catalytic activity/Vol] 11 U/L Normal 7-38 [facility] Comment on above: Order Comment: Speci men Type: BLOOD SPECIMENOrdering Facility: [facility] Address: [address] [place] [address] Performed By: #### 2 4323-8, 99041-8, 2776-08, 8 ####[facility] [id number] [address] [address] [place] Anion gap [Moles/Vol] 13 mmol/L Normal 8-15 [facility] Comment on above: Order Comment: Speci men Type: BLOOD SPECIMENOrdering Facility: [facility] Address: [address] [place] [address] Performed By: #### 2 4323-8, 91361-5, 2776-, 8 ####[facility] [id number] [address] [address] [place] AST [Catalytic activity/Vol] 19 U/L Normal 13-35 [facility] Comment on above: Order Comment: Speci men Type: BLOOD SPECIMENOrdering Facility: [facility] Address: [address] [place] [address] Performed By: #### 2 4323-8, 90254-5, 2776-08, 2731-03 ####[facility] [id number] [address] [address] [place] Bilirubin [Mass/Vol] 0.3 mg/dL Normal 0.2-1.3 [facility] Comment on above: Order Comment: Speci men Type: BLOOD SPECIMENOrdering Facility: [facility] Address: [address] [place] [address] Performed By: #### 2 4323-8, 73995-1, 2776-08, 2731-03 ####[facility] [id number] [address] [address] [place] Calcium [Mass/Vol] 9.2 mg/dL Normal 8.5-10.2 [facility] Comment on above: Order Comment: Speci men Type: BLOOD SPECIMENOrdering Facility: [facility] Address: [address] [place] [address] Performed By: #### 2 4323-8, 03090-0, 2776-08, 2731-03 ####[facility] [id number] [address] [address] [place] Chloride [Moles/Vol] 107 mmol/L Normal 98-107 [facility] Comment on above: Order Comment: Speci men Type: BLOOD SPECIMENOrdering Facility: [facility] Address: [address] [place], [place] [address] Performed By: #### 2 4323-8, 80020-1, 2776-08, 2731-03 ####[facility] [id number] [address] [address] [place] CO2 [Moles/Vol] 22 mmol/L Normal 22-30 [facility] Comment on above: Order Comment: Speci men Type: BLOOD SPECIMENOrdering Facility: [facility] Address: [address] [place] [address] Performed By: #### 2 4323-8, 55142-4, 2776-08, 2731-03 ####[facility] [id number] [address] [address] [place] Creatinine [Mass/Vol] 0.64 mg/dL Normal 0.58-0.96 [facility] Comment on above: Order Comment: Speci men Type: BLOOD SPECIMENOrdering Facility: [facility] Address: [address] [place] [address] Performed By: #### 2 4323-8, , 2776-08, 2731-03 ####[facility] [id number] [address] [address] [place] eGFRcr SerPlBld CKD-EPI 2020 88 mL/min/1.73m??? Normal >=60 [facility] Comment on above: Order Comment: Speci men Type: BLOOD SPECIMENOrdering Facility: [facility] Address: [address] [place] [address] Result Comment: Lisha mated Glomerular Filtration Rate (eGFR) is calculated using the 2020 CKD-EPI creatinine equation. This equation utilizes serum creatinine, sex, and age as parameters. The creatinine assay has traceable calibration to isotope dilution-mass spectrometry. Refer to KDIGO guidelines for clinical interpretation. In patients with unstable renal function, e.g. those with acute kidney injury, the eGFR may not accurately reflect actual GFR. Performed By: #### 2 4323-8, 40273-6, 2776-08, 2731-03 ####[facility] [id number] [address] [place] [address] [place] Glucose [Mass/Vol] 90 mg/dL Normal 74-99 [facility] Comment on above: Order Comment: Speci men Type: BLOOD SPECIMENOrdering Facility: [facility] Address: [address] [place] [id number] Result Comment: The [place] Diabetes Association (ADA) provides guidance for cutoff values for fasting glucose and random glucose. The ADA defines fasting as no caloric intake for at least 8 hours. Fasting plasma glucose results between 100 to 125 mg/dL indicate increased risk for diabetes (prediabetes). Fasting plasma glucose results greater than or equal to 126 mg/dL meet the criteria for diagnosis of diabetes. In the absence of unequivocal hyperglycemia, results should be confirmed by repeat testing. In a patient with classic symptoms of hyperglycemia or hyperglycemic crisis, random plasma glucose results greater than or equal to 200 mg/dL meet the criteria for diagnosis of diabetes. Reference: Standards of Medical Care in Diabetes 2016, [place] [employer] Association. Diabetes Care. 2016.39(Suppl 1). Performed By: #### 2 4323-8, 45515-0, 2776-08, 2731-03 ####[facility] [id number] [place] [id number] [place] Potassium [Moles/Vol] 4.2 mmol/L Normal 3.7-5.1 [facility] Comment on above: Order Comment: Speci men Type: BLOOD SPECIMENOrdering Facility: [facility] Address: [address] [id number] Performed By: #### 2 4323-8, , 2776-08, 2731-03 ####[facility] [id number] [place] [id number] [place] Protein [Mass/Vol] 6.1 g/dL Low 6.3-8.0 [facility] Comment on above: Order Comment: Speci men Type: BLOOD SPECIMENOrdering Facility: [facility] Address: [address] [id number] Performed By: #### 2 4323-8, 70018-1, 2776-08, 2731-03 ####[facility] [id number] [address] [place] [address] [place] Sodium [Moles/Vol] 142 mmol/L Normal 136-144 [facility] Comment on above: Order Comment: Speci men Type: BLOOD SPECIMENOrdering Facility: [facility] Address: [address] [place], [place] [address] Performed By: #### 2 4323-8, , 2776-08, 2731-03 ####[facility] [id number] [address] [address] [place] Urea nitrogen [Mass/Vol] 17 mg/dL Normal 7-21 [facility] Comment on above: Order Comment: Speci men Type: BLOOD SPECIMENOrdering Facility: [facility] Address: [address] [place] [address] Performed By: #### 2 4323-8, , 2776-08, 2731-03 ####[facility] [id number] [address] [address] [place] Magnesium SerPl-mCncon 04-07 Magnesium [Mass/Vol] 2.3 mg/dL Normal 1.7-2.3 [facility] Comment on above: Order Comment: Speci men Type: BLOOD SPECIMENOrdering Facility: [facility] Address: [address] [place] [address] Performed By: #### 2 4323-8, 84764-0, 2776-08, 2731-03 ####[facility] [id number] [address] [place] [address] [place] Osteocalcin SerPl-mCncon Osteocalcin [Mass/Vol] 28.0 ng/mL Normal 8.6-37.6 [facility] Comment on above: Order Comment: Speci men Type: BLOOD SPECIMEN [facility] Address: [address] [place] [address] Performed By: #### 1 9123-9, 43842-0 #### [facility] CLIA [id number] [address] [place] [address] [place] PTH-Intact SerPl-ncon 08- Parathyrin.intact [Mass/Vol] 51 pg/mL Normal 15-65 [facility] Comment on above: Order Comment: Speci men Type: BLOOD SPECIMENOrdering Facility: [facility] Address: [address] [place], [place] [address] Performed By: #### 2 4323-8, 25157-2, 277-1, 8 ####[facility] [id number] [place] [address] [place] Phosphate SerPl-ncon 04-07 Phosphate [Mass/Vol] 2.9 mg/dL Normal 2.7-4.8 [facility] Comment on above: Order Comment: Speci men Type: BLOOD SPECIMENOrdering Facility: [facility] Address: [address] [place], [place] [address] Performed By: #### 2 4323-8, 37743-9, 27702-07, 2731-03 ####[facility] [id number] [place] [id number] [place] CNOVon 04-06-2025 CNOV Office Visit (ENWSTR ) -- RADHA BALDWIN ([id number]) 1940 F Date Time Provider Department 04/06/25 3:00 PM RAMONE DORMAN ENWSTR During your visit today, we recorded the following information about you: Temperature Pulse Respiration Blood pressure 97.8 degrees 79/minute 20/minute 138/62 Weight 57.7 kg Ramone Dorman MD 04/06/2025 6:15 PM Signed Endocrinology and Metabolism [facility] Visit Note NAME: Radha Baldwin is a 85 year old old female PCP: Jonny Torres MD Requesting Provider: Jonny Torres [address] [facility] [address] My final recommendations will be communicated back to the requesting physician by way of shared medical record or letter via US mail. Chief Complaint: HPI: Radha Baldwin is a 85 year old female here to discuss bone health. PMHx significant for fracture of femur as below She is a retired nurse Calcium: Citracal Petites 600-800 mg BID. Consumes cheese daily and yogurt approximately twice weekly. Denies lactose intolerance or gluten sensitivity. Vitamin D: 2000 units daily Dietary and supplemental calcium intakes are adequate. Prior use of antiresporptives or other medications: Fosamax started in 2002, dcd in 2011. She used 16 months of Forteo from 2011- 2013. This was followed by [facility], 02/2014- 07/2023 Prior fragility fractures: She fractured right femur in Aug 2023, trying to cross a dog gate when she saw her "pants moving". Treated with hardware ("screws") Reports occasional pain, sometimes weather-related. - History of hip replacement 9 years ago, resulting in leg length discrepancy. - Reports balance issues and decreased physical activity since the fracture. No specific exercise reported Height loss: 1 inch Kidney stones: no History of corticosteroid use: no Has hx of GERD, for several years, treated with protonix History of malabsorption: no History of certain medication use: none Current or recent tobacco use: 60 years ago Caffeine intake: 1 cup of decaffeinated Alcohol use: occasional Use of lithium or thiazides: no History of hyperparathyroidism:not known Dental appointment: Goes very year, beginning of this year she had an appt and has no dental issues P:3 A:0 Menarche/LMP: Mentrual regularity: irregular History of BCP use: up until tubectomy she used control pills History of estrogen use: few months to a year after menopause History of : normal Menopause: natural at 58 She has no eating disorder Cancer history: skin cancer- melanoma and basal cell carcinoma, excised History of radiation exposure: no Family history of osteoporosis, calcium, or bone disorders: rickets in father Family history of hip fractures: no PAST MEDICAL HISTORY Diagnosis Date CVA (cerebral vascular accident) (HCC) 06/02/2017 [facility] acute ischemic right posterior putamen stroke on MRI ASA, Plavix atorvastatin. Follow up with Dr. Witt scheduled. 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 May 2017; treated at [facility] Irritable bowel syndrome Osteoporosis, unspecified Stroke (HCC) Thoracic or lumbosacral neuritis or radiculitis, unspecified Unspecified constipation Constipation PAST SURGICAL HISTORY Procedure Laterality Date ABDOMINAL SURGERY HX COLONOSCOPY 06/17/2022 repeat in 10 years COLONOSCOPY W/BIOPSY SINGLE/MULTIPLE 02/08/2013 normal appearing DILATION AND CURETTAGE DXAND/THER NONOBSTETRIC Dilation AND curettage EGD 06/17/2022 EGD TRANSORAL BIOPSY SINGLE/MULTIPLE 02/08/2013 duodenitis, gastritis JOINT REPLACEMENT HX LIG/TRNSXJ FLP TUBE ABDL/VAG APPR UNI/BI Tubal ligation TONSILLECTOMY HX TONSILLECTOMY PRIMARY/SECONDARY Tonsillectomy Current Outpatient Medications on File Prior to Visit Medication Sig cephALEXin (KEFLEX) 500 mg capsule Take 1 capsule by mouth three times a day for 10 days. coenzyme Q10 (COQ-10) 100 mg cap capsule Take 1 capsule by mouth two times a day. (Or 200 mg once daily) rosuvastatin (CRESTOR) 5 mg tablet Take 1 tablet by mouth daily at bedtime. mometasone (NASONEX) 50 mcg/actuation nasal spray Use 2 Sprays in each nostril once daily. INSTILL 2 SPRAYS IN EACH NOSTRIL ONCE DAILY montelukast (SINGULAIR) 10 mg tablet Take 1 tablet by mouth every afternoon. DULoxetine (CYMBALTA) 20 mg capsule Take 1 capsule by mouth once daily. potassium chloride (K-TAB) 10 mEq tablet Take 1 tablet by mouth two times a day. clopidogrel (PLAVIX) 75 mg tablet Take 1 tablet by mouth once daily. pantoprazole DR (PROTONIX) 40 mg tablet Take 1 tablet by mouth two times a day. Take on empty stomach (more content not included)... Normal [facility] Orthopedic Visit Reporton Orthopedic Visit Report [facility] [address] [place] [address] OFFICE VISIT Date of Service: 04/04/25 MR#: [id number] Acct: [id number] Name: RADHA BALDWIN Rep #: [id number] : 1940 Provider: ANAND bunch Age/Sex: 84/F Location: [facility] Status: Signed Intake Vital Signs 03/02/25 12:59 04/04/25 14:12 Height 5 ft 2 in 5 ft 2 in Weight: 125 lb BMI 22.8 Intake Visit Reasons: LEFT KNEE Chief Complaint: 1st Euflexxa left knee injection Accompanied by: Self Is patient in pain?: Yes Pain scale (1-10): 3 Allergies fentanyl Allergy (Verified 04/04/25 14:18) Itching codeine Adverse Reaction (Verified 04/04/25 14:18) Nausea/Vom/Diarrhea Penicillins Adverse Reaction (Verified 04/04/25 14:18) Unknown Medications ???Medication ???Instructions ???Recorded ???Confirmed ???Type cholecalciferol (vitamin D3) 25 1,000 unit PO BID Supplement 10/1804/04/25 History mcg (1,000 unit) tablet clopidogrel 75 mg tablet 75 mg PO DAILY antiplatelet #30 1 04/04/25 Rx tabs ascorbate calcium (vitamin C) 500 500 mg PO BID Supplement 03/21/20 04/04/25 History mg tablet aspirin 81 mg tablet,delayed 81 mg PO DAILY Heart Health 04/04/25 History release (Adult Aspirin Regimen) nitroglycerin 0.4 mg sublingual 0.4 mg sublingual Q5-15M PRN chest 03/21/20 04/04/25 History tablet pain vitamin E (dl, acetate) 180 mg 400 unit PO DAILY Supplement 03/2104/04/25 History (400 unit) capsule fluticasone propionate 50 1 spray intranasal DAILY PRN 08/2804/04/25 History mcg/actuation nasal allergy symptoms spray,suspension (24 Hour Allergy Relief) rosuvastatin 5 mg tablet (Crestor) 5 mg PO DAILY Cholesterol 04/04/25 History acetaminophen 500 mg tablet 1,000 mg (2 x 500 mg) PO Q6H PRN 0 09/18/23 04/04/25 Rx PRN Pain Score 1-10 #0 tabs potassium chloride 20 mEq 20 meq PO BIDCM 30 days #60 tabs 0 09/18/23 04/04/25 Rx tablet,extended release(part/cryst) magnesium 250 mg tablet 500 mg PO QDAY 11/10/24 04/04/25 H istory montelukast 10 mg tablet 10 mg PO QDAY 02/03/25 04/04/25 Hi story omeprazole 20 mg capsule,delayed 20 mg PO QDAY 02/03/25 04/04/25 Hi story release venlafaxine 75 mg capsule,extended 75 mg PO QDAY 02/03/25 04/04/25 History release 24 hr Have you fallen in the past year?: No PFSH Medical History History of fracture of femur Nonobstructive atherosclerosis of coronary artery Hyperlipidemia GERD (gastroesophageal reflux disease) IBS (irritable bowel syndrome) Osteoporosis History of CVA (cerebrovascular accident) (06/19/17) Osteoarthritis Surgical History History of tubal ligation History of surgery on lower extremity History of tonsillectomy and adenoidectomy History of left heart catheterization (03/26/20) History of total hip arthroplasty Family History Other Heart disease Social History household members: none Smoking Status: Former smoker alcohol intake: never substance use type: does not use HPI LEFT KNEE Details: This documentation accurately reflects the service provided and the decisions made by me, ANAND Stern 04/04/25 9326. Part of today???s visit was documented by Karli Esquivel MA, acting as scribe. RADHA BALDWIN is a 84 year old F here today for 1st euflexxa left knee injection Agree with above: Patient states that she has been having trouble weight bearing and increased arthritis flare symptoms on her left knee. She doesn't trust herself going up stairs due to sensation of instability, able to ascend single step at a time, no difficulty with these steps. Patient was use a straight cane on as needed basis if needed, she has handrails near her steps which are all that she uses. Has had good sx mgmt with [facility] in the past. Patient frustrated with insurance and specialty pharmacy process, stated was waiting for single dose of gel injection, however wanted to initiate the viscosupplementation so is in agreement to pursue the Euflexxa series of 3 injections over 3 weeks. ROS Const All systems reviewed are unremarkable except as noted in H and other (A O x 3, no apparent distress. No recent illness.) ENT Denies dizziness Card Denies chest pain, Denies dyspnea, Denies edema and Reports other (No palpitations) Resp Denies cough, Denies dyspnea and Reports other (No recent URI) GI Reports system reviewed and no additional complaints, except as documented, Denies nausea and Denies vomiting Musc R (more content not included)... Normal [facility] 04-03-2025 [facility] Telephone (INTMWS) -- RADHA BALDWIN [place] ([id number]) 1940 F Date Time Provider Department 04/03/25 MISAEL LARA INTTravWS During your visit today, we recorded the following information about you: Misael Lara APRN.4TH GRADE TEACHER 04/03/2025 10:32 AM Signed Please let her know that urine culture was positive. Will send in cephalexin to pharmacy. Verify she is seeing urology. Radha Pablo LPN 04/03/2025 4:05 PM Signed Patient notified of providers message and verbalized understanding. Patient states she does not have urology appt yet. She states schedulers wanted to schedule out of town and she would like this consult to be in [place] with Dr Stern due to travel distance from my home. Referral has been sent as requested Allergies As of Date: 04/03/2025 Noted Allergy Reaction FENTANYL 01/27/2017 9 - Itching CODEINE 02/17/2013 8 - GI Upset PENICILLINS 06/02/2003 16 - Unknown Date Reviewed: 02/23/2025 Reviewed by: Victoriano Smith APRN.ASSOCIATE PROPERTY MANAGER - Fully Assessed Visit Diagnoses:Urinary tract infection with hematuria, site unspecified [N39.0, R31.9] Recurrent UTI [N39.0] Order(s):cephALEXin (KEFLEX) 500 mg capsuleTake 1 capsule by mouth three times a day for 10 days.Disp: 30 capsuleRfl: 0 Prescriptions as of 04/03/2025 - cephALEXin (KEFLEX) 500 mg capsule Take 1 capsule by mouth three times a day for 10 days. - coenzyme Q10 (COQ-10) 100 mg cap capsule Take 1 capsule by mouth two times a day. (Or 200 mg once daily) - gabapentin (NEURONTIN) 100 mg capsule Take 1 capsule by mouth daily at bedtime. - rosuvastatin (CRESTOR) 5 mg tablet Take 1 tablet by mouth daily at bedtime. - mometasone (NASONEX) 50 mcg/actuation nasal spray Use 2 Sprays in each nostril once daily. INSTILL 2 SPRAYS IN EACH NOSTRIL ONCE DAILY - montelukast (SINGULAIR) 10 mg tablet Take 1 tablet by mouth every afternoon. - DULoxetine (CYMBALTA) 20 mg capsule Take 1 capsule by mouth once daily. - potassium chloride (K-TAB) 10 mEq tablet Take 1 tablet by mouth two times a day. - clopidogrel (PLAVIX) 75 mg tablet Take 1 tablet by mouth once daily. - pantoprazole DR (PROTONIX) 40 mg tablet Take 1 tablet by mouth two times a day. Take on empty stomach, 1/2 hr before meal. - naproxen (NAPROSYN) 250 mg tablet 4 TIMES DAILY NEEDED - scopolamine (TRANSDERM-SCOP) patch 1.5 mg/72 hr (1 mg over 3 days) Apply 1 Patch as directed every 72 hours. - nitroglycerin sublingual (NITROQUICK) 0.4 mg SL tablet Dissolve 0.4mg tab (1tab) under tongue every 5min as needed for chest pain. If no response after max 3 tabs go to ED/notify doctor. - fluticasone (FLONASE) 50 mcg/actuation nasal spray Use 1 [place] in each nostril once daily. For allergy season - meclizine (ANTIVERT) 25 mg tab Take 2 tablets by mouth once daily as needed (dizziness/motion sickness). - polypodium leucotomos extract (HELIOCARE ORAL) Take 1 tablet by mouth as needed (Hold during the winter). - SENNOSIDES/DOCUSATE SODIUM (SENOKOT-S ORAL) Take 1 Dose by mouth once daily as needed. - Cholecalciferol, Vitamin D3, 25 mcg (1,000 unit) cap Take 1,000 Units by mouth two times a day. - ascorbic acid(VITAMIN C 500 MG TAB) Take one(1) tablet two(2) times daily. - acetaminophen(TYLENOL ARTHRITIS PAIN 650 MG TAB) Take two(2) tablets twice daily. - VITAMIN E 400IU SOFTGEL Take one(1) capsule twice daily. Problem List As Of Date 04/03/2025 Noted Resolved Irritable bowel syndrome [K58.9] 05/16/2016 Constipation [K59.00] Osteoporosis [M81.0] LUMBOSACRAL NEURITIS NOS [[id number]] Hyperlipidemia [E78.5] 07/17/2005 Hemangioma of skin and subcutaneous tissue [D18*03/26/2006 11/14/2015 Benign neoplasm of skin of lower limb, includin*02/28/2008 11/14/2015 Anemia [D64.9] 01/29/2013 History of total right hip arthroplasty [Z96.64*11/15/2013 Gastroesophageal reflux disease without esophag*11/14/2015 Recurrent major depressive disorder, in remissi*11/17/2016 Uveitis [H20.9] 04/06/2017 CVA (cerebral vascular accident) (HCC) [I63.9] 06/02/2017 07/12/2017 History of recent stroke [Z86.73] 07/12/2017 Nocturia [R35.1] 07/12/2017 Vitamin D deficiency [E55.9] 07/05/2018 Debility [R53.81] 10/01/2023 Diagnosed: 10/01/2023 History of repair of hip joint [Z98.890] 10/01/2023 Diagnosed: 10/01/2023 Prescriptions ordered this encounter Disp Refills Start End CEPHALEXIN 500 MG CAPSULE 30 c* 0 04/03/2025 04/13/2025 Route: PO Sig: Take 1 capsule by mouth three times a day for 10 days. Medications Discontinued During This Encounter Prescriptions - cephALEXin (KEFLEX) 500 mg capsule (Discontinued) Take 1 capsule by mouth three times a day for 7 days. Encounter Status:Closed by RADHA PABLO on 04/03/25 [facility] Bacteria Ur Culton Bacteria identified Cx Nom (U) ORGANISM ID: 1 >=100,000 CFU/ml Proteus mirabilis ORGANISM ID: 1 (PROTEUS MIRABILIS) ANTIBIOTIC INTERPRETATION CRIS STATUS REFERENCE RANGE Ampicillin S <=2 F Susceptible <=8 , Intermediate >8 , Resistant >16 Cefazolin S <=4 F Susceptible 0-16 , Intermediate <0 or >16 , Resistant >16 For uncomplicated urinary tract infections, cefazolin results can be used to predict susceptibility or resistance to cephalexin. Ceftriaxone S <=1 F Susceptible <=1 , Intermediate >1 , Resistant >=4 Cefepime S <=1 F Susceptible <=2 , Susceptible-Dose Dependent >2 , Resistant >=16 Ertapenem S <=0.5 F Susceptible <=0.5 , Intermediate >.5 , Resistant >1 Meropenem S <=0.25 F Susceptible <=1 , Intermediate >1 , Resistant >2 Ampicillin/Sulbact S <=2 F Susceptible <=8 , Intermediate >8 , Resistant >16 Piperacillin/Tazobac S <=4 F Susceptible <16 , Susceptible-Dose Dependent >=16 , Resistant >=32 Gentamicin S <=1 F Susceptible <=2 , Intermediate >2 , Resistant >=8 Tobramycin S <=1 F Susceptible <4 , Intermediate >=4 , Resistant >=8 Trimeth sulfameth S <=20 F Susceptible <=40 , Resistant >40 Ciprofloxacin S <=0.25 F Susceptible <0.5 , Intermediate >=.5 , Resistant >=1 Nitrofurantoin R 128 F Susceptible <=32 , Intermediate >32 , Resistant >64 Abnormal [facility] Comment on above: Performed By: #### 6 30-4, 02219-9 #### [facility] CLIA [id number] [address] [place] [address] [place] Urinalysis complete panel (U )on 03-30-2025 BACTERIA UL >9821 High Negative [facility] Comment on above: Order Comment: Speci men Type: URINE SPECIMEN Ordering Facility: [facility] Address: [address] [place] [address] Performed By: #### 6 30-4, 46858-8 #### [facility] CLIA [id number] [address] [place] [address] [place] Bilirubin Ql (U) Negative Normal Negative [facility] Comment on above: Order Comment: Speci men Type: URINE SPECIMEN Ordering Facility: [facility] Address: [address] [place] [address] Performed By: #### 6 30-4, 52208-8 #### [facility] CLIA [id number] [address] [place] [address] [place] Clarity (Unsp spec) Turbid Abnormal Clear [facility] Comment on above: Order Comment: Speci men Type: URINE SPECIMEN [facility]ing Facility: [facility] Address: [address] [place] [address] Performed By: #### 6 30-4, 73531-4 #### [facility] CLIA [id number] [address] [place] [address] [place] Color (U) Yellow Normal Yellow [facility] Comment on above: Order Comment: Speci men Type: URINE SPECIMEN [facility] Facility[facility] Address: [address] [place] [address] Performed By: #### 6 30-4, 29972-5 #### [facility] CLIA [id number] [address] [place] [address] [place] Epithelial cells LM.HPF (Urine sed) [#/Area] None Seen Normal [facility] Comment on above: Order Comment: Speci men Type: URINE SPECIMEN Ordering Facility: [facility] Address: [address] [place] [address] Performed By: #### 6 30-, 60378-3 #### [facility] CLIA [id number] [address] [place] [address] [place] Glucose Test strip (U) [Mass/Vol] Negative Normal Negative [facility] Comment on above: Order Comment: Speci men Type: URINE SPECIMEN [facility]ing Facility[facility] Address: [address] [place] [address] Performed By: #### 6 30-4, 64044-0 #### [facility] CLIA [id number] [address] [place] [address] [place] Hemoglobin Ql (U) Negative Normal Negative [facility] Comment on above: Order Comment: Speci men Type: URINE SPECIMEN [facility] Address: [address] [place] [address] Performed By: #### 6 30-4, 83731-4 #### [facility] CLIA [id number] [address] [place] [address] [place] Hyaline casts (Urine sed) [#/Area] 1-3 /LPF Abnormal 0 /LPF [facility] Comment on above: Order Comment: Speci men Type: URINE SPECIMEN Ordering Facility: [facility] Address: [address] [place] [address] Performed By: #### 6 30-4, 99989-2 #### [facility] CLIA [id number] [address] [place] [address] [place] Ketones Ql (U) Negative Normal Negative [facility] Comment on above: Order Comment: Speci men Type: URINE SPECIMEN [facility] Facility[facility] Address: [address] [place] [address] Performed By: #### 6 30-4, 42768-8 #### [facility] CLIA [id number] [address] [place] [address] [place] Leukocyte esterase Test strip Ql (U) 2+ Abnormal Negative [facility] Comment on above: Order Comment: Speci men Type: URINE SPECIMEN Ordering [facility] Address: [address] [place] [address] Performed By: #### 6 30-4, 77239-7 #### [facility] CLIA [id number] [address] [place] [address] [place] Nitrite Ql (U) Positive Abnormal Negative [facility] Comment on above: Order Comment: Speci men Type: URINE SPECIMEN Ordering [facility] Address: [address] [place] [address] Performed By: #### 6 30-4, 71757-9 #### [facility] CLIA [id number] [address] [place] [address] [place] pH (U) 7.5 [pH] Normal 5.0-8.0 [facility] Comment on above: Order Comment: Speci men Type: URINE SPECIMEN Ordering Facility: [facility] Address: [address] [place] [address] Performed By: #### 6 30-4, 97095-4 #### [facility] CLIA [id number] [address] [place] [address] [place] Protein (U) [Mass/Vol] Trace Abnormal Negative [facility] Comment on above: Order Comment: Speci men Type: URINE SPECIMEN Ordering [facility] Address: [address] [place] [address] Performed By: #### 6 30-4, 61234-8 #### [facility] CLIA [id number] [address] [place] [address] [place] RBC LM.HPF (Urine sed) [#/Area] 0-2 /HPF Normal 0-2 /HPF [facility] Comment on above: Order Comment: Speci men Type: URINE SPECIMEN Ordering Facility: [facility] Address: [address] [place] [address] Performed By: #### 6 30-4, 63648-6 #### [facility] CLIA [id number] [address] [place] [address] [place] Specific gravity (U) [Rel density] 1.020 Normal 1.005-1.030 [facility] Comment on above: Order Comment: Speci men Type: URINE SPECIMEN Ordering [facility] Address: [address] [place] [address] Performed By: #### 6 30-4, 80642-3 #### [facility] CLIA [id number] [address] [place] [address] [place] Urobilinogen Ql (U) 0.2 EU/dL Normal 0.2-1.0 EU/dL [facility] Comment on above: Order Comment: Speci men Type: URINE SPECIMEN Ordering [facility]: [facility] Address: [address] [place] [address] Performed By: #### 6 30-4, 51183-7 #### [facility] CLIA [id number] [address] [place] [address] [place] WBC LM.HPF (Urine sed) [#/Area] /[HPF] Abnormal 0-5 /HPF [facility] Comment on above: Order Comment: Speci men Type: URINE SPECIMEN Order[facility] Address: [address] [place] [address] Performed By: #### 6 30-4, 41200-3 #### [facility] CLIA [id number] [address] [place] [address] [place] Bacteria Ur Culton 5 Bacteria identified Cx Nom (U) CULTURE, URINE: Mixed microbiota, including predominantly: ORGANISM ID: 1 50,000-<100,000 CFU/ml Proteus mirabilis ORGANISM ID: 1 (PROTEUS MIRABILIS) ANTIBIOTIC INTERPRETATION CRIS STATUS REFERENCE RANGE Ampicillin S <=2 F Susceptible <=8 , Intermediate >8 , Resistant >16 Cefazolin S <=4 F Susceptible 0-16 , Intermediate <0 or >16 , Resistant >16 For uncomplicated urinary tract infections, cefazolin results can be used to predict susceptibility or resistance to cephalexin. Ceftriaxone S <=1 F Susceptible <=1 , Intermediate >1 , Resistant >=4 Cefepime S <=1 F Susceptible <=2 , Susceptible-Dose Dependent >2 , Resistant >=16 Ertapenem S <=0.5 F Susceptible <=0.5 , Intermediate >.5 , Resistant >1 Meropenem S <=0.25 F Susceptible <=1 , Intermediate >1 , Resistant >2 Ampicillin/Sulbact S <=2 F Susceptible <=8 , Intermediate >8 , Resistant >16 Piperacillin/Tazobac S <=4 F Susceptible <16 , Susceptible-Dose Dependent >=16 , Resistant >=32 Gentamicin S <=1 F Susceptible <=2 , Intermediate >2 , Resistant >=8 Tobramycin S <=1 F Susceptible <4 , Intermediate >=4 , Resistant >=8 Trimeth sulfameth S <=20 F Susceptible <=40 , Resistant >40 Ciprofloxacin S <=0.25 F Susceptible <0.5 , Intermediate >=.5 , Resistant >=1 Nitrofurantoin R 128 F Susceptible <=32 , Intermediate >32 , Resistant >64 Abnormal [facility] Comment on above: Performed By: #### 1 9123-9, 64263-8 #### [facility] [id number] [address] [place] [address] 03-13-2025 CNPN Telephone (INTMWS) -- RADHA BALDWIN ([id number]) 1940 F Date Time Provider Department 03/13/25 JONNY TORRES INTMWS During your visit today, we recorded the following information about you: Maryjo Tao, ANDREINA 03/13/2025 8:36 AM Signed Patient calls with update since completing Bactrim DS for UTI. Patient reports she completed the Bactrim DS 10 days as ordered. Five days after completing the antibiotic symptoms have returned. Patient reports she is having burning with urination, frequency, and unable to make it to the bathroom at times as when she has to go it comes on quick. Afebrile. Patient reports provider was going to send in further antibiotic if symptoms didn't improve. Pharmacy is [facility] in [place]. Please review and advise, ANDREINA Hoff Terri, APRN.4TH GRADE TEACHER 03/13/2025 9:08 AM Signed Recommend she come into the lab for urinalysis with culture as indicated. Sent a prescription for cephalexin which she can start today once she has completed the urinalysis. Recommend an appointment with urology for recurrent, please schedule. Georgette Berrios MA 03/13/2025 11:03 AM Addendum Pt informed. Please schedule pt with urology Georgette Berrios MA Allergies As of Date: 03/13/2025 Noted Allergy Reaction FENTANYL 01/27/2017 9 - Itching CODEINE 02/17/2013 8 - GI Upset PENICILLINS 06/02/2003 16 - Unknown Date Reviewed: 02/23/2025 Reviewed by: Victoriano Smith APRN.ASSOCIATE PROPERTY MANAGER - Fully Assessed Reason for Visit: Patient Update [1234] Primary Visit Diagnosis:Recurrent UTI [N39.0] Other Visit Diagnosis:Urinary tract infection with hematuria, site unspecified [N39.0, R31.9] Order(s):cephALEXin (KEFLEX) 500 mg capsuleTake 1 capsule by mouth three times a day for 7 days.Disp: 21 capsuleRfl: 0 CONSULT TO UROLOGY [9041] Order #: [id number]: 1 FUTURE URINALYSIS (WITH MICROSCOPIC) WITH CULTURE IF INDICATED [SQUACII] Order #: [id number] FUTURE Prescriptions as of 03/13/2025 - cephALEXin (KEFLEX) 500 mg capsule Take 1 capsule by mouth three times a day for 7 days. - coenzyme Q10 (COQ-10) 100 mg cap capsule Take 1 capsule by mouth two times a day. (Or 200 mg once daily) - gabapentin (NEURONTIN) 100 mg capsule Take 1 capsule by mouth daily at bedtime. - rosuvastatin (CRESTOR) 5 mg tablet Take 1 tablet by mouth daily at bedtime. - mometasone (NASONEX) 50 mcg/actuation nasal spray Use 2 Sprays in each nostril once daily. INSTILL 2 SPRAYS IN EACH NOSTRIL ONCE DAILY - montelukast (SINGULAIR) 10 mg tablet Take 1 tablet by mouth every afternoon. - DULoxetine (CYMBALTA) 20 mg capsule Take 1 capsule by mouth once daily. - potassium chloride (K-TAB) 10 mEq tablet Take 1 tablet by mouth two times a day. - clopidogrel (PLAVIX) 75 mg tablet Take 1 tablet by mouth once daily. - pantoprazole DR (PROTONIX) 40 mg tablet Take 1 tablet by mouth two times a day. Take on empty stomach, 1/2 hr before meal. - naproxen (NAPROSYN) 250 mg tablet 4 TIMES DAILY NEEDED - scopolamine (TRANSDERM-SCOP) patch 1.5 mg/72 hr (1 mg over 3 days) Apply 1 Patch as directed every 72 hours. - nitroglycerin sublingual (NITROQUICK) 0.4 mg SL tablet Dissolve 0.4mg tab (1tab) under tongue every 5min as needed for chest pain. If no response after max 3 tabs go to ED/notify doctor. - fluticasone (FLONASE) 50 mcg/actuation nasal spray Use 1 [place] in each nostril once daily. For allergy season - meclizine (ANTIVERT) 25 mg tab Take 2 tablets by mouth once daily as needed (dizziness/motion sickness). - polypodium leucotomos extract (HELIOCARE ORAL) Take 1 tablet by mouth as needed (Hold during the winter). - SENNOSIDES/DOCUSATE SODIUM (SENOKOT-S ORAL) Take 1 Dose by mouth once daily as needed. - Cholecalciferol, Vitamin D3, 25 mcg (1,000 unit) cap Take 1,000 Units by mouth two times a day. - ascorbic acid(VITAMIN C 500 MG TAB) Take one(1) tablet two(2) times daily. - acetaminophen(TYLENOL ARTHRITIS PAIN 650 MG TAB) Take two(2) tablets twice daily. - VITAMIN E 400IU SOFTGEL Take one(1) capsule twice daily. 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 Normal [facility] Urinalysis complete panel (U )on 03-13-2025 Bacteria LM.HPF (Urine sed) [#/Area] Negative Normal Negative [facility] Comment on above: Order Comment: Speci men Type: BLOOD SPECIMEN [facility] Address: [address] [place] [address] Performed By: #### 1 0623-9, 60653-9 #### [id number] [address] [place] [address] [place] Bilirubin Ql (U) Negative Normal Negative [facility] Comment on above: Order Comment: Speci men Type: BLOOD SPECIMEN Order[facility] Address: [address] [place] [address] Performed By: #### 1 9123-9, 30196-8 #### [facility] CLIA [id number] [address] [place] [address] [place] Clarity (Unsp spec) Clear Normal Clear [facility] Comment on above: Order Comment: Speci men Type: BLOOD SPECIMEN Order[facility] Facility[facility] Address: [address] [place] [address] Performed By: #### 1 2023-9, 73988-7 #### [facility] CLIA [id number] [address] [place] [address] [place] Color (U) Yellow Normal Yellow [facility] Comment on above: Order Comment: Speci men Type: BLOOD SPECIMEN Order[facility] Address: [address] [place] [address] Performed By: #### 1 9123-9, #### [facility] CLIA [id number] [address] [place] [address] [place] Epithelial cells LM.HPF (Urine sed) [#/Area] None Seen Normal [facility] Comment on above: Order Comment: Speci men Type: BLOOD SPECIMEN [facility] Address: [address] [place] [address] Performed By: #### 1 9123-9, #### [facility] CLIA [id number] [address] [place] [address] [place] Glucose Test strip (U) [Mass/Vol] Negative Normal Negative [facility] Comment on above: Order Comment: Speci men Type: BLOOD SPECIMEN [facility] Address: [address] [place] [address] Performed By: #### 1 9123-9, #### [facility] CLIA [id number] [address] [place] [address] [place] Hemoglobin Ql (U) Negative Normal Negative [facility] Comment on above: Order Comment: Speci men Type: BLOOD SPECIMEN [facility] Address: [address] [place] [address] Performed By: #### 1 9123-9, #### [facility] CLIA [id number] [address] [place] [address] [place] Hyaline casts (Urine sed) [#/Area] 1-3 /LPF Abnormal 0 /LPF [facility] Comment on above: Order Comment: Speci men Type: BLOOD SPECIMEN Order[facility] Address: [address] [place] [address] Performed By: #### 1 239, #### [facility] CLIA [id number] [address] [place] [address] [place] Ketones Ql (U) Negative Normal Negative [facility] Comment on above: Order Comment: Speci men Type: BLOOD SPECIMEN Order[facility] Address: [address] [place] [address] Performed By: #### 1 9, #### [facility] CLIA [id number] [address] [place] [address] [place] Leukocyte esterase Test strip Ql (U) 2+ Abnormal Negative [facility] Comment on above: Order Comment: Speci men Type: BLOOD SPECIMEN Order[facility] Address: [address] [place] [address] Performed By: #### 1 9, #### [facility] CLIA [id number] [address] [place] [address] [place] Nitrite Ql (U) Negative Normal Negative [facility] Comment on above: Order Comment: Speci men Type: BLOOD SPECIMEN [facility] Address: [address] [place] [address] Performed By: #### 1 9, #### [facility] CLIA [id number] [address] [place] [address] [place] pH (U) 6.0 [pH] Normal 5.0-8.0 [facility] Comment on above: Order Comment: Speci men Type: BLOOD SPECIMEN Order[facility] Address: [address] [place] [address] Performed By: #### 1 9, #### [facility] CLIA [id number] [address] [place] [address] [place] Protein (U) [Mass/Vol] Negative Normal Negative [facility] Comment on above: Order Comment: Speci men Type: BLOOD SPECIMEN Order[facility] Address: [address] [place] [address] Performed By: #### 1 9123-9, 99129-0 #### [facility] CLIA [id number] [address] [place] [address] [place] RBC LM.HPF (Urine sed) [#/Area] 6-10 /HPF Abnormal 0-2 /HPF [facility] Comment on above: Order Comment: Speci men Type: BLOOD SPECIMEN Order[facility] Address: [address] [place] [address] Performed By: #### 1 9123-9, 65963-2 #### [facility] [id number] [address] [place] [address] [place] Specific gravity (U) [Rel density] 1.025 Normal 1.005-1.030 [facility] Comment on above: Order Comment: Speci men Type: BLOOD SPECIMEN Order[facility] Address: [address] [place] [address] Performed By: #### 1 9123-9, 05579-8 #### [facility] CLIA [id number] [address] [place] [address] [place] Urobilinogen Ql (U) 0.2 EU/dL Normal 0.2-1.0 EU/dL [facility] Comment on above: Order Comment: Speci men Type: BLOOD SPECIMEN Order[facility] Address: [address] [place] [address] Performed By: #### 1 9123-9, 11849-0 #### [facility] CLIA [id number] [address] [place] [address] [place] WBC LM.HPF (Urine sed) [#/Area] /[HPF] Abnormal 0-5 /HPF [facility] Comment on above: Order Comment: Speci men Type: BLOOD SPECIMEN Order[facility] Address: [address] [place] [address] Performed By: #### 1 9123-9, 39480-9 #### [facility] CLIA [id number] [address] [facility] Orthopedic Visit Reporton Orthopedic Visit Report [facility] [address] [place] [address] OFFICE VISIT Date of Service: 03/02/25 MR#: [id number] Acct: [id number] Name: RADHA BALDWIN [place] Rep #: [id number] : 1940 Provider: ANAND bunch Age/Sex: 84/F Location: [facility] Status: Signed Intake Vital Signs 02/13/25 08:21 03/02/25 12:59 Height 5 ft 2 in 5 ft 2 in Weight: 125 lb BMI 22.8 Intake Visit Reasons: BILATERAL KNEES Chief Complaint: Bilateral knees Accompanied by: Self Is patient in pain?: Yes Pain scale (1-10): 2 Allergies fentanyl Allergy (Verified 03/02/25 13:03) Itching codeine Adverse Reaction (Verified 03/02/25 13:03) Nausea/Vom/Diarrhea Penicillins Adverse Reaction (Verified 03/02/25 13:03) Unknown Medications ???Medication ???Instructions ???Recorded ???Confirmed ???Type cholecalciferol (vitamin D3) 25 1,000 unit PO BID Supplement 10/1803/02/25 History mcg (1,000 unit) tablet clopidogrel 75 mg tablet 75 mg PO DAILY antiplatelet #30 1 03/02/25 Rx tabs ascorbate calcium (vitamin C) 500 500 mg PO BID Supplement 03/21/20 03/02/25 History mg tablet aspirin 81 mg tablet,delayed 81 mg PO DAILY Heart Health 03/02/25 History release (Adult Aspirin Regimen) nitroglycerin 0.4 mg sublingual 0.4 mg sublingual Q5-15M PRN chest 03/21/20 03/02/25 History tablet pain vitamin E (dl, acetate) 180 mg 400 unit PO DAILY Supplement 03/2103/02/25 History (400 unit) capsule fluticasone propionate 50 1 spray intranasal DAILY PRN 08/2803/02/25 History mcg/actuation nasal allergy symptoms spray,suspension (24 Hour Allergy Relief) rosuvastatin 5 mg tablet (Crestor) 5 mg PO DAILY Cholesterol 03/02/25 History acetaminophen 500 mg tablet 1,000 mg (2 x 500 mg) PO Q6H PRN 0 09/18/23 03/02/25 Rx PRN Pain Score 1-10 #0 tabs potassium chloride 20 mEq 20 meq PO BIDCM 30 days #60 tabs 0 09/18/23 03/02/25 Rx tablet,extended release(part/cryst) gabapentin 100 mg capsule 100 mg PO QHS 11/10/24 03/02/25 Hi story magnesium 250 mg tablet 500 mg PO QDAY 11/10/24 03/02/25 H istory montelukast 10 mg tablet 10 mg PO QDAY 02/03/25 03/02/25 Hi story omeprazole 20 mg capsule,delayed 20 mg PO QDAY 02/03/25 03/02/25 Hi story release venlafaxine 75 mg capsule,extended 75 mg PO QDAY 02/03/25 03/02/25 History release 24 hr Have you fallen in the past year?: Yes PFSH Medical History History of fracture of femur Nonobstructive atherosclerosis of coronary artery Hyperlipidemia GERD (gastroesophageal reflux disease) IBS (irritable bowel syndrome) Osteoporosis History of CVA (cerebrovascular accident) (06/19/17) Osteoarthritis Surgical History History of tubal ligation History of surgery on lower extremity History of tonsillectomy and adenoidectomy History of left heart catheterization (03/26/20) History of total hip arthroplasty Family History Other Heart disease Social History household members: none Smoking Status: Former smoker alcohol intake: never substance use type: does not use HPI BILATERAL KNEES Details: This documentation accurately reflects the service provided and the decisions made by me, ANAND Stern 03/02/25 [id number]. Part of today???s visit was documented by Karli Esquivel MA, acting as scribe. RADHA BALDWIN is a 84 year old F here today for bilateral knees. Patient states that she is not having pain in the right knee, can get tender anterior patella and proximal tibial region, but when walking she doesn't have a problem. Overall improvement since injury 99%. Patient states that she has been having trouble weight bearing and increased arthritis flare symptoms on her left knee. She doesn't trust herself going up stairs due to sensation of instability, able to ascend single step at a time, no difficulty with these steps. Patient was use a straight cane on as needed basis if needed, she has handrails near her steps which are all that she uses. Inquiring about receiving viscosupplementation to the left knee today. ROS Const All systems reviewed are unremarkable except as noted in H and other (A O x 3, no apparent distress. No recent illness.) ENT Denies dizziness Card Denies chest pain, Denies dyspnea, Denies edema and Reports other (No palpitations) Resp Denies cough, Denies dyspnea and Reports other (No recent URI) GI Reports system reviewed and no additional complaints, except as documented, Denies nausea and Denies vomiting Mu (more content not included)... Normal [facility] Bacteria Ur Culton 5 Bacteria identified Cx Nom (U) ORGANISM ID: 1 >=100,000 CFU/ml Proteus mirabilis Call the lab ([phone]) within 72 h if susceptibility testing for ertapenem is required. ORGANISM ID: 1 (PROTEUS MIRABILIS) ANTIBIOTIC INTERPRETATION CRIS STATUS REFERENCE RANGE Ampicillin S <=2 F Susceptible <=8 , Intermediate >8 , Resistant >16 Cefazolin S <=4 F Susceptible 0-16 , Intermediate <0 or >16 , Resistant >16 For uncomplicated urinary tract infections, cefazolin results can be used to predict susceptibility or resistance to cephalexin. Ceftriaxone S <=1 F Susceptible <=1 , Intermediate >1 , Resistant >=4 Cefepime S <=1 F Susceptible <=2 , Susceptible-Dose Dependent >2 , Resistant >=16 Meropenem S <=0.25 F Susceptible <=1 , Intermediate >1 , Resistant >2 Ampicillin/Sulbact S <=2 F Susceptible <=8 , Intermediate >8 , Resistant >16 Piperacillin/Tazobac S <=4 F Susceptible <16 , Susceptible-Dose Dependent >=16 , Resistant >=32 Gentamicin S <=1 F Susceptible <=2 , Intermediate >2 , Resistant >=8 Tobramycin S <=1 F Susceptible <4 , Intermediate >=4 , Resistant >=8 Trimeth sulfameth S <=20 F Susceptible <=40 , Resistant >40 Ciprofloxacin S <=0.25 F Susceptible <0.5 , Intermediate >=.5 , Resistant >=1 Nitrofurantoin R 128 F Susceptible <=32 , Intermediate >32 , Resistant >64 Abnormal [facility] Comment on above: Performed By: #### 6 30-4 ####[facility] [id number] [place] [id number] [place] 02-23-2025 [place] Telephone (FAMPWS) -- RADHA BALDWIN ([id number]) 1940 F Date Time Provider Department 02/23/25 KENNY PANDEY During your visit today, we recorded the following information about you: Kenny Pandey APRN.CNP 02/23/2025 10:07 AM Signed UTI symptoms, awaiting urine results, will start bactrim while awaiting results. Thank you Kenny Pandey APRN.CNP Allergies As of Date: 02/23/2025 Noted Allergy Reaction FENTANYL 01/27/2017 9 - Itching CODEINE 02/17/2013 8 - GI Upset PENICILLINS 06/02/2003 16 - Unknown Date Reviewed: 02/23/2025 Reviewed by: Victoriano Smith APRN.CNP - Fully Assessed Order(s):sulfamethoxazole- trimethoprim (BACTRIM DS) 800-160 mg per tabletTake 1 tablet by mouth two times a day for 3 days.Disp: 6 tabletRfl: 0 Prescriptions as of 02/23/2025 - sulfamethoxazole-trimethop rim (BACTRIM DS) 800-160 mg per tablet Take 1 tablet by mouth two times a day for 3 days. - coenzyme Q10 (COQ-10) 100 mg cap capsule Take 1 capsule by mouth two times a day. (Or 200 mg once daily) - gabapentin (NEURONTIN) 100 mg capsule Take 1 capsule by mouth daily at bedtime. - rosuvastatin (CRESTOR) 5 mg tablet Take 1 tablet by mouth daily at bedtime. - mometasone (NASONEX) 50 mcg/actuation nasal spray Use 2 Sprays in each nostril once daily. INSTILL 2 SPRAYS IN EACH NOSTRIL ONCE DAILY - montelukast (SINGULAIR) 10 mg tablet Take 1 tablet by mouth every afternoon. - DULoxetine (CYMBALTA) 20 mg capsule Take 1 capsule by mouth once daily. - potassium chloride (K-TAB) 10 mEq tablet Take 1 tablet by mouth two times a day. - clopidogrel (PLAVIX) 75 mg tablet Take 1 tablet by mouth once daily. - pantoprazole DR (PROTONIX) 40 mg tablet Take 1 tablet by mouth two times a day. Take on empty stomach, 1/2 hr before meal. - naproxen (NAPROSYN) 250 mg tablet 4 TIMES DAILY NEEDED - scopolamine (TRANSDERM-SCOP) patch 1.5 mg/72 hr (1 mg over 3 days) Apply 1 Patch as directed every 72 hours. - nitroglycerin sublingual (NITROQUICK) 0.4 mg SL tablet Dissolve 0.4mg tab (1tab) under tongue every 5min as needed for chest pain. If no response after max 3 tabs go to ED/notify doctor. - fluticasone (FLONASE) 50 mcg/actuation nasal spray Use 1 [place] in each nostril once daily. For allergy season - meclizine (ANTIVERT) 25 mg tab Take 2 tablets by mouth once daily as needed (dizziness/motion sickness). - polypodium leucotomos extract (HELIOCARE ORAL) Take 1 tablet by mouth as needed (Hold during the winter). - SENNOSIDES/DOCUSATE SODIUM (SENOKOT-S ORAL) Take 1 Dose by mouth once daily as needed. - Cholecalciferol, Vitamin D3, 25 mcg (1,000 unit) cap Take 1,000 Units by mouth two times a day. - ascorbic acid(VITAMIN C 500 MG TAB) Take one(1) tablet two(2) times daily. - acetaminophen(TYLENOL ARTHRITIS PAIN 650 MG TAB) Take two(2) tablets twice daily. - VITAMIN E 400IU SOFTGEL Take one(1) capsule twice daily. Problem List As Of Date 02/23/2025 Noted Resolved Irritable bowel syndrome [K58.9] 05/16/2016 Constipation [K59.00] Osteoporosis [M81.0] LUMBOSACRAL NEURITIS NOS [VWA8807] Hyperlipidemia [E78.5] 07/17/2005 Hemangioma of skin and subcutaneous tissue [D18*03/26/2006 11/14/2015 Benign neoplasm of skin of lower limb, includin*02/28/2008 11/14/2015 Anemia [D64.9] 01/29/2013 History of total right hip arthroplasty [Z96.64*11/15/2013 Gastroesophageal reflux disease without esophag*11/14/2015 Recurrent major depressive disorder, in remissi*11/17/2016 Uveitis [H20.9] 04/06/2017 CVA (cerebral vascular accident) (HCC) [I63.9] 06/02/2017 07/12/2017 History of recent stroke [Z86.73] 07/12/2017 Nocturia [R35.1] 07/12/2017 Vitamin D deficiency [E55.9] 07/05/2018 Debility [R53.81] 10/01/2023 Diagnosed: 10/01/2023 History of repair of hip joint [Z98.890] 10/01/2023 Diagnosed: 10/01/2023 Prescriptions ordered this encounter Disp Refills Start End SULFAMETHOXAZOLE 800 MG-TRIMETHOPRIM* 6 ta* 0 02/23/2025 02/26/2025 Route: PO Sig: Take 1 tablet by mouth two times a day for 3 days. Encounter Status:Closed by KENNY PANDEY on 02/23/25 Normal [facility] URINALYSIS, DIPSTICK ONLYon 02-23-2025 Bilirubin Ql (U) Negative Normal Negative [facility] Comment on above: Order Comment: Speci men Type: URINE SPECIMEN Ordering Facility: [facility] Address: [address] [place] [address] Performed By: #### 6 30-4, 46659-4 #### [facility] CLIA [id number] [address] [place] [address] [place] Clarity (Unsp spec) Cloudy Abnormal Clear [facility] Comment on above: Order Comment: Speci men Type: URINE SPECIMEN Ordering Facility: [facility] Address: [address] [place] [address] Performed By: #### 6 30-4, 04769-0 #### [facility] CLIA [id number] [address] [place] [address] [place] Color (U) Yellow Normal Yellow [facility] Comment on above: Order Comment: Speci men Type: URINE SPECIMEN Ordering Facility: [facility] Address: [address] [place] [address] Performed By: #### 6 30-4, 63255-2 #### [facility] CLIA [id number] [address] [place], [place] [id number] [place] Glucose Test strip (U) [Mass/Vol] Negative Normal Negative [facility] Comment on above: Order Comment: Speci men Type: URINE SPECIMEN Ordering Facility: [facility] Address: [address] [place] [address] Performed By: #### 6 30-4, 16193-5 #### [facility] CLIA [id number] [address] [place], [place] [id number] [place] Hemoglobin Ql (U) Negative Normal Negative [facility] Comment on above: Order Comment: Speci men Type: URINE SPECIMEN Ordering Facility: [facility] Address: [address] [place] [address] Performed By: #### 6 30-4, 85515-4 #### [facility] CLIA [id number] [address] [place] [address] [place] Ketones Ql (U) Negative Normal Negative [facility] Comment on above: Order Comment: Speci men Type: URINE SPECIMEN Ordering Facility: [facility] Address: [address] [place] [address] Performed By: #### 6 30-4, 70685-6 #### [facility] CLIA [id number] [address] [place], [place] [id number] [place] Leukocyte esterase Test strip Ql (U) 2+ Abnormal Negative [facility] Comment on above: Order Comment: Speci men Type: URINE SPECIMEN Ordering Facility: [facility] Address: [address] [place] [address] Performed By: #### 6 30-4, 24929-6 #### [facility] CLIA [id number] [address] [place], [place] [id number] [place] Nitrite Ql (U) Positive Abnormal Negative [facility] Comment on above: Order Comment: Speci men Type: URINE SPECIMEN Ordering Facility: [facility] Address: [address] [place] [address] Performed By: #### 6 30-4, 37336-1 #### [facility] CLIA [id number] [address] [place] [address] [place] pH (U) [pH] High 5.0-8.0 [facility] Comment on above: Order Comment: Speci men Type: URINE SPECIMEN Ordering Facility: [facility] Address: [address] [place] [address] Performed By: #### 6 30-4, 73425-5 #### [facility] CLIA [id number] [address] [place] [address] [place] Protein (U) [Mass/Vol] 3+ Abnormal Negative [facility] Comment on above: Order Comment: Speci men Type: URINE SPECIMEN Ordering Facility: [facility] Address: [address] [place] [address] Performed By: #### 6 30-4, 38005-1 #### [facility] CLIA [id number] [address] [place] [address] [place] Specific gravity (U) [Rel density] 1.023 Normal 1.005-1.030 [facility] Comment on above: Order Comment: Speci men Type: URINE SPECIMEN Ordering Facility: [facility] Address: [address] [place] [address] Performed By: #### 6 30-4, 03851-5 #### [facility] CLIA [id number] [address] [place], [place] [id number] [place] Urobilinogen Ql (U) 0.2 EU/dL Normal 0.2-1.0 EU/dL [facility] Comment on above: Order Comment: Speci men Type: URINE SPECIMEN Ordering Facility: [facility] Address: [address] [place] [address] Performed By: #### 6 30-4, 15406-0 #### [facility] CLIA [id number] [address] [place] [address] [place] CNOVon 02-15-2025 CNOV Office Visit (INTMWS ) -- RADHA BALDWIN ([id number]) 1940 F Date Time Provider Department 02/15/25 1:40 PM JONNY TORRES INTMWS During your visit today, we recorded the following information about you: Pulse Blood pressure Weight 74/minute 174/74 55.8 kg Jonny Torres MD 03/22/2025 1:34 AM Addendum This note was created using NoteWriter. Subjective Ann Marie Baldwin is a 84-year-old female with a history of osteoporosis, presenting for a 6-month follow-up. Ann Marie reports a history of osteoporosis with a T-score of -2.7 in the left hip as of August last year. She has been on Reclast infusions annually for at least 3 years, with the last dose due in July, which she skipped. She notes that the bone density has not improved with Reclast, and she is considering alternative treatments. She mentions doing weight-bearing exercises through daily activities such as caring for her two dogs. She also reports back pain, which has improved significantly after receiving two injections in the SI joint, one on each side. She denies current back pain. Ann Marie has a history of knee arthritis and has been receiving injections, initially Efflexin and Duralane, which provided relief for 7-8 months. She recently switched to steroid injections but discontinued them due to headaches. She reports a recent fall in a parking lot, resulting in knee pain. X-rays were negative for fractures, but she notes that the pain worsens with weight-bearing and improves with rest. She is scheduled for a follow-up in 2 weeks and is considering further evaluation if the pain persists. Ann Marie has been on Crestor since a stroke and inquires about taking CoQ10 supplements due to fatigue. She is also on Plavix and expresses a desire to discontinue it but acknowledges the risk of falls. She is currently taking Protonix once daily, although prescribed twice daily, and has no issues with refills. She is also on Cymbalta, potassium, and gabapentin, which helps with burning feet and neuropathy. She has started wearing compression stockings, which provide some relief. PAST MEDICAL HISTORY Diagnosis Date CVA (cerebral vascular accident) (HCC) 06/02/2017 [facility] acute ischemic right posterior putamen stroke on MRI ASA, Plavix atorvastatin. Follow up with Dr. Witt scheduled. 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 May 2017; treated at [facility] Irritable bowel syndrome Osteoporosis, unspecified Stroke ([facility]) Thoracic or lumbosacral neuritis or radiculitis, unspecified Unspecified constipation Constipation Current Outpatient Medications Medication Sig mometasone (NASONEX) 50 mcg/actuation nasal spray Use 2 Sprays in each nostril once daily. INSTILL 2 SPRAYS IN EACH NOSTRIL ONCE DAILY montelukast (SINGULAIR) 10 mg tablet Take 1 tablet by mouth every afternoon. DULoxetine (CYMBALTA) 20 mg capsule Take 1 capsule by mouth once daily. potassium chloride (K-TAB) 10 mEq tablet Take 1 tablet by mouth two times a day. clopidogrel (PLAVIX) 75 mg tablet Take 1 tablet by mouth once daily. pantoprazole DR (PROTONIX) 40 mg tablet Take 1 tablet by mouth two times a day. Take on empty stomach, 1/2 hr before meal. (Patient taking differently: Take 40 mg by mouth once daily. Take on empty stomach, 1/2 hr before meal.) naproxen (NAPROSYN) 250 mg tablet 4 TIMES DAILY NEEDED scopolamine (TRANSDERM-SCOP) patch 1.5 mg/72 hr (1 mg over 3 days) Apply 1 Patch as directed every 72 hours. nitroglycerin sublingual (NITROQUICK) 0.4 mg SL tablet Dissolve 0.4mg tab (1tab) under tongue every 5min as needed for chest pain. If no response after max 3 tabs go to ED/notify doctor. meclizine (ANTIVERT) 25 mg tab Take 2 tablets by mouth once daily as needed (dizziness/motion sickness). polypodium leucotomos extract (HELIOCARE ORAL) Take 1 tablet by mouth as needed (Hold during the winter). SENNOSIDES/DOCUSATE SODIUM (SENOKOT-S ORAL) Take 1 Dose by mouth once daily as needed. Cholecalciferol, Vitamin D3, 25 mcg (1,000 unit) cap Take 1,000 Units by mouth two times a day. ascorbic acid(VITAMIN C 500 MG TAB) Take one(1) tablet two(2) times daily. acetaminophen(TYLENOL ARTHRITIS PAIN 650 MG TAB) Take two(2) tablets twice daily. VITAMIN E 400IU SOFTGEL Take one(1) capsule twice daily. coenzyme Q10 (COQ-10) 100 mg cap capsule Take 1 capsule by mouth two times a day. (Or 200 mg once daily) gabapentin (NEURONTIN) 100 mg capsule Take 1 capsule by mouth daily at bedtime. rosuvastatin (CRESTOR) 5 mg tablet Take 1 tablet by mouth daily at bedtime. fluticasone (FLONASE) 50 mcg/actuation nasal spray Use 1 [place] in each nostril once daily. For allergy se (more content not included)... Normal [facility] Femur Min 2 Viewson 02-15-20 25 Femur Min 2 Views [facility] Imaging Services [address] [place] [address] Femur Min 2 Views MR#: [id number] Acct: [id number] Name: RADHA BALDWIN [place] Rep #: [id number] : 1940 F 84 From: Mateusz Maloney MD PCP: Dr. Jonny Torres MD Status: DEP AMB Study: Femur Min 2 Views Date of Exam: 02/14/25 Exam# [id number] Ordering Dr: Sofia Yoon LEAD DESIGNER-C EXAM: XR Right Femur, 2 Views CLINICAL INDICATION: FALL, PAIN, HX ORIF AFTER FX TECHNIQUE: Frontal and lateral views of the right femur. COMPARISON: No relevant prior studies available. FINDINGS: BONES/JOINTS: Total hip replacement. Intact hardware. Anatomic position. Additional fixation plate and screws to the mid femur. No acute fracture. No dislocation. SOFT TISSUES: Unremarkable. RAD/Femur Min 2 Views IMPRESSION: Postoperative changes as above. [facility] CC: ANAND Yoon; Dr. Jonny Torres MD Power And Recovery Supervisor: Signed Normal [facility] Knee 4 or More Viewson 02-14 Knee 4 or More Views [facility] Imaging Services [address] [place] [address] Knee 4 or More Views MR#: [id number] Acct: [id number] Name: ANN MARIE BALDWINORAH COURT[place] Rep #: [id number] : 1940 F 84 From: Mateusz Maloney MD PCP: Dr. Jonny Torres MD Status: DEP AMB Study: Knee 4 or More Views Date of Exam: 02/14/25 Exam# [id number] Ordering Dr: Sofia Yoon EXAM: XR Left Knee Complete, 4 or More Views CLINICAL INDICATION: CHRONIC PAIN TECHNIQUE: Four or more views of the left knee. COMPARISON: No relevant prior studies available. FINDINGS: BONES/JOINTS: Moderate tricompartmental degenerative changes of the knee joint. No acute fracture. No dislocation. SOFT TISSUES: Soft tissue swelling. RAD/Knee 4 or More Views IMPRESSION: Degenerative changes as above. Reading Location[facility] CC: ANAND Yoon; Dr. Jonny Torres MD Power And Recovery Supervisor: Signed Normal [facility] Orthopedic Visit Reporton Orthopedic Visit Report [facility] [address] [place] [address] [address] [place] [address] OFFICE VISIT Date of Service: 02/14/25 MR#: [id number] Acct: [id number] Name: RADHA BALDWIN [place] Rep #: [id number] : 1940 Provider: ANAND bunch Age/Sex: 84/F Location: [facility] Status: Signed Intake Vital Signs 02/13/25 08:21 Height 5 ft 2 in Intake Visit Reasons: BILATERAL KNEES Accompanied by: Self Is patient in pain?: Yes Allergies fentanyl Allergy (Verified 02/14/25 10:37) Itching codeine Adverse Reaction (Verified 02/14/25 10:37) Nausea/Vom/Diarrhea Penicillins Adverse Reaction (Verified 02/14/25 10:37) Unknown Medications ???Medication ???Instructions ???Recorded ???Confirmed ???Type cholecalciferol (vitamin D3) 25 1,000 unit PO BID Supplement 10/1802/14/25 History mcg (1,000 unit) tablet clopidogrel 75 mg tablet 75 mg PO DAILY antiplatelet #30 1 02/14/25 Rx tabs ascorbate calcium (vitamin C) 500 500 mg PO BID Supplement 03/21/20 02/14/25 History mg tablet aspirin 81 mg tablet,delayed 81 mg PO DAILY Heart Health 02/14/25 History release (Adult Aspirin Regimen) nitroglycerin 0.4 mg sublingual 0.4 mg sublingual Q5-15M PRN chest 03/21/20 02/14/25 History tablet pain vitamin E (dl, acetate) 180 mg 400 unit PO DAILY Supplement 03/2102/14/25 History (400 unit) capsule fluticasone propionate 50 1 spray intranasal DAILY PRN 08/2802/14/25 History mcg/actuation nasal allergy symptoms spray,suspension (24 Hour Allergy Relief) rosuvastatin 5 mg tablet (Crestor) 5 mg PO DAILY Cholesterol 02/14/25 History acetaminophen 500 mg tablet 1,000 mg (2 x 500 mg) PO Q6H PRN 0 09/18/23 02/14/25 Rx PRN Pain Score 1-10 #0 tabs potassium chloride 20 mEq 20 meq PO BIDCM 30 days #60 tabs 0 09/18/23 02/14/25 Rx tablet,extended release(part/cryst) gabapentin 100 mg capsule 100 mg PO QHS 11/10/24 02/14/25 Hi story magnesium 250 mg tablet 500 mg PO QDAY 11/10/24 02/14/25 H istory montelukast 10 mg tablet 10 mg PO QDAY 02/03/25 02/14/25 Hi story omeprazole 20 mg capsule,delayed 20 mg PO QDAY 02/03/25 02/14/25 Hi story release venlafaxine 75 mg capsule,extended 75 mg PO QDAY 02/03/25 02/14/25 History release 24 hr Have you fallen in the past year?: Yes PFSH Medical History History of fracture of femur Nonobstructive atherosclerosis of coronary artery Hyperlipidemia GERD (gastroesophageal reflux disease) IBS (irritable bowel syndrome) Osteoporosis History of CVA (cerebrovascular accident) (06/19/17) Osteoarthritis Surgical History History of tubal ligation History of surgery on lower extremity History of tonsillectomy and adenoidectomy History of left heart catheterization (03/26/20) History of total hip arthroplasty Family History Other Heart disease Social History household members: none Smoking Status: Former smoker alcohol intake: never substance use type: does not use HPI BILATERAL KNEES Details: This documentation accurately reflects the service provided and the decisions made by me, ROBB SternC 02/14/25 1034. Part of today???s visit was documented by Gabrielle ZARATE, acting as scribe. RADHA BALDWIN is a 84 year old F here today for bilateral knee pain. She has had left knee pain for several years and started having right knee pain after a fall she had a few weeks ago. She states that she was walking quickly and tripped and fell in a parking lot and landed on both knees. She denies previous surgery on either knee. She states that she used to get the gel injections from [facility]. She has had the Euflexxa and Durolane injection as well as 2 steroid injections. The gel injection give her more relief than the steroid. She states that steroid injections give her a headache for a few days afterwards. She did go [facility] the [facility] the day after her fall to be evaluated and they had done xrays of the right knee. She states that her pain originally started below her knee cap but now it had started to radiate down her altamirano and at times into her foot. She takes Tylenol and has tried Voltaren gel but has not noticed any significant relief. Her pain seems to be worse in the evening. Her right knee is worse than the left. Agree with above. Patient states ongoing issues with left knee pain and arthritis symptoms. Patient uses a knee sleeve on as needed basis. Last gel injection was Durolane received late 2023 which provided approximately 9 months of relief. She is interested in pursuing an additional gel injec (more content not included)... Normal [facility] Tibia Fibula 2 Viewson 02-14 Tibia Fibula 2 Views [facility] Imaging Services [address] [place] [address] Tibia Fibula 2 Views MR#: [id number] Acct: [id number] Name: RADHA BALDWIN Rep #: [id number] : 1940 F 84 From: Mateusz Maloney MD PCP: Dr. Jonny Torres MD Status: DEP AMB Study: Tibia Fibula 2 Views Date of Exam: 02/14/25 Exam# [id number] Ordering Dr: Sofia Yoon EXAM: XR Right Tibia and Fibula, 2 Views CLINICAL INDICATION: LEG PAIN AFTER FALL TECHNIQUE: Frontal and lateral views of the right tibia and fibula. COMPARISON: No relevant prior studies available. FINDINGS: BONES/JOINTS: See below. SOFT TISSUES: Soft tissue swelling without acute fracture. No radiopaque foreign body. RAD/Tibia Fibula 2 Views IMPRESSION: 1. Soft tissue swelling without acute fracture. 2. If symptoms persist, further evaluation with CT is recommended. Reading Location: [facility] CC: LEAD DESIGNERFlorentino Yoon; Dr. Jonny Torres MD Power And Recovery Supervisor: Signed Normal [facility] 25(OH)D3 SerPl-ncon 2024 25-hydroxyvitamin D3 [Mass/Vol] 62.0 ng/mL Normal 31.0-80.0 [facility] Comment on above: Order Comment: Speci men Type: BLOOD SPECIMENOrdering Facility: [facility] Address: [address] [place] [address] Result Comment: Clas sification of 25 [place] Vitamin D status: Deficiency/Insufficiency: < or = 30 ng/ml. Sufficiency/Optimal Levels: 31-80 ng/mL Toxicity: > 100 ng/mL. Test performed by chemiluminescent immunoassay. Performed By: #### 1 989-3 ####[facility] [id number] [place] [address] [place] CBC panel Auto (Bld)on 02-09 Erythrocyte distribution width (RBC) [Ratio] 13.7 % Normal 11.5-15.0 [facility] Comment on above: Order Comment: Speci men Type: BLOOD SPECIMEN [facility] Address: [address] [place] [address] Performed By: #### 1 9123-9, 85264-2 #### [facility] CLIA [id number] [address] [place] [address] [place] Hematocrit (Bld) [Volume fraction] 39.7 % Normal 36.0-46.0 [facility] Comment on above: Order Comment: Speci men Type: BLOOD SPECIMEN [facility] Address: [address] [place] [address] Performed By: #### 1 9123-9, 00879-1 #### [facility] [id number] [address] [place] [address] [place] Hemoglobin (Bld) [Mass/Vol] 12.3 g/dL Normal 11.5-15.5 [facility] Comment on above: Order Comment: Speci men Type: BLOOD SPECIMEN [facility] Address: [address] [place] [address] Performed By: #### 1 9123-9, 13879-5 #### [facility] CLIA [id number] [address] [place] [address] [place] MCH (RBC) [Entitic mass] 30.5 pg Normal 26.0-34.0 [facility] Comment on above: Order Comment: Speci men Type: BLOOD SPECIMEN [facility] Address: [address] [place] [address] Performed By: #### 1 9123-9, 67233-1 #### [facility] CLIA [id number] [address] [place] [address] [place] MCHC (RBC) [Mass/Vol] 31.0 g/dL Normal 30.5-36.0 [facility] Comment on above: Order Comment: Speci men Type: BLOOD SPECIMEN [facility] Address: [address] [place], [place] [address] Performed By: #### 1 9123-9, 55919-2 #### [facility] CLIA [id number] [address] [place] [address] [place] MCV (RBC) [Entitic vol] 98.5 fL Normal 80.0-100.0 [facility] Comment on above: Order Comment: Speci men Type: BLOOD SPECIMEN [facility] Address: [address] [place] [address] Performed By: #### 1 9123-9, 56228-8 #### [facility] CLIA [id number] [address] [place] [address] [place] Nucleated RBC (Bld) [#/Vol] 10*3/uL Normal <0.01 [facility] Comment on above: Order Comment: Speci men Type: BLOOD SPECIMEN [facility] Address: [address] [place] [address] Performed By: #### 1 9123-9, 07926-8 #### [facility] CLIA [id number] [address] [place] [address] [place] Platelet mean volume (Bld) [Entitic vol] 9.8 fL Normal 9.0-12.7 [facility] Comment on above: Order Comment: Speci men Type: BLOOD SPECIMEN [facility] Address: [address] [place] [address] Performed By: #### 1 9123-9, 93937-8 #### [facility] CLIA [id number] [address] [place] [address] [place] Platelets (Bld) [#/Vol] 289 10*3/uL Normal 150-400 [facility] Comment on above: Order Comment: Speci men Type: BLOOD SPECIMEN [facility] Address: [address] [place] [address] Performed By: #### 1 9123-9, 49517-8 #### [facility] CLIA [id number] [address] [place] [address] [place] RBC (Bld) [#/Vol] 4.03 10*6/uL Normal 3.90-5.20 [facility] Comment on above: Order Comment: Speci men Type: BLOOD SPECIMEN [facility] Address: [address] [place] [address] Performed By: #### 1 9123-9, 07374-0 #### [facility] CLIA [id number] [address] [place] [address] [place] WBC (Bld) [#/Vol] 8.88 10*3/uL Normal 3.70-11.00 [facility] Comment on above: Order Comment: Speci men Type: BLOOD SPECIMEN [facility] Address: [address] [place] [address] Performed By: #### 1 9123-9, 98845-1 #### [facility] CLIA [id number] [address] [place] [address] [place] Comprehensive metabolic 2000 panelon 02-09-2025 Albumin [Mass/Vol] 4.3 g/dL Normal 3.9-4.9 [facility] Comment on above: Order Comment: Speci men Type: URINE SPECIMEN [facility] Address: [address] [place], [place] [address] Performed By: #### 6 30-4, 84563-8 #### [facility] CLIA [id number] [address] [place], [place] [address] [place] ALP [Catalytic activity/Vol] 89 U/L Normal 34-123 [facility] Comment on above: Order Comment: Speci men Type: URINE SPECIMEN [facility] Address: [address] [place] [address] Performed By: #### 6 30-4, 75656-8 #### [facility] CLIA [id number] [address] [place] [address] [place] ALT [Catalytic activity/Vol] 12 U/L Normal 7-38 [facility] Comment on above: Order Comment: Speci men Type: URINE SPECIMEN [facility] Address: [address] [place] [address] Performed By: #### 6 30-4, 06074-5 #### [facility] CLIA [id number] [address] [place] [address] [place] Anion gap [Moles/Vol] 13 mmol/L Normal 8-15 [facility] Comment on above: Order Comment: Speci men Type: URINE SPECIMEN [facility] Address: [address] [place], [place] [address] Performed By: #### 6 30-4, 66007-9 #### [facility] CLIA [id number] [address] [place], [place] [address] [place] AST [Catalytic activity/Vol] 19 U/L Normal 13-35 [facility] Comment on above: Order Comment: Speci men Type: URINE SPECIMEN [facility] Address: [address] [place], [place] [address] Performed By: #### 6 30-4, 92527-6 #### [facility] CLIA [id number] [address] [place], [place] [address] [place] Bilirubin [Mass/Vol] 0.4 mg/dL Normal 0.2-1.3 [facility] Comment on above: Order Comment: Speci men Type: URINE SPECIMEN [facility] Address: [address] [place] [address] Performed By: #### 6 30-4, 16330-2 #### [facility] CLIA [id number] [address] [place] [address] [place] Calcium [Mass/Vol] 9.7 mg/dL Normal 8.5-10.2 [facility] Comment on above: Order Comment: Speci men Type: URINE SPECIMEN [facility] Address: [address] [place] [address] Performed By: #### 6 30-4, 54158-2 #### [facility] CLIA [id number] [address] [place] [address] [place] Chloride [Moles/Vol] 103 mmol/L Normal 98-107 [facility] Comment on above: Order Comment: Speci men Type: URINE SPECIMEN [facility] Address: [address] [place] [address] Performed By: #### 6 30-4, 76260-8 #### [facility] CLIA [id number] [address] [place], [place] [address] [place] CO2 [Moles/Vol] 23 mmol/L Normal 22-30 [facility] Comment on above: Order Comment: Speci men Type: URINE SPECIMEN [facility] Address: [address] [place] [address] Performed By: #### 6 30-4, 91353-5 #### [facility] CLIA [id number] [address] [place], [place] [address] [place] Creatinine [Mass/Vol] 0.64 mg/dL Normal 0.58-0.96 [facility] Comment on above: Order Comment: Rola de la torre Type: URINE SPECIMEN [facility] Address: [address] [place] [address] Performed By: #### 6 30-4, 08826-2 #### [facility] CLIA [id number] [address] [place] [address] [place] Creatinine and Glomerular filtration rate.predicted panel (S/P/Bld) 88 mL/min/1.73m??? Normal >=60 [facility] Comment on above: Order Comment: Rola de la torre Type: URINE SPECIMEN [facility] Address: [address] [place] [address] Result Comment: Lisha mated Glomerular Filtration Rate (eGFR) is calculated using the 2020 CKD-EPI creatinine equation. This equation utilizes serum creatinine, sex, and age as parameters. The creatinine assay has traceable calibration to isotope dilution-mass spectrometry. Refer to KDIGO guidelines for clinical interpretation. In patients with unstable renal function, e.g. those with acute kidney injury, the eGFR may not accurately reflect actual GFR. Performed By: #### 6 30-4, 25681-7 #### [facility] CLIA [id number] [address] [place] [address] [place] Glucose [Mass/Vol] 84 mg/dL Normal 74-99 [facility] Comment on above: Order Comment: Rola de la torre Type: URINE SPECIMEN [facility] Address: [address] [place] [address] Result Comment: The [place] Diabetes Association (ADA) provides guidance for cutoff values for fasting glucose and random glucose. The ADA defines fasting as no caloric intake for at least 8 hours. Fasting plasma glucose results between 100 to 125 mg/dL indicate increased risk for diabetes (prediabetes). Fasting plasma glucose results greater than or equal to 126 mg/dL meet the criteria for diagnosis of diabetes. In the absence of unequivocal hyperglycemia, results should be confirmed by repeat testing. In a patient with classic symptoms of hyperglycemia or hyperglycemic crisis, random plasma glucose results greater than or equal to 200 mg/dL meet the criteria for diagnosis of diabetes. Reference: Standards of Medical Care in Diabetes 2016, [place] Diabetes Association. Diabetes Care. 2016.39(Suppl 1). Performed By: #### 6 30-4, 21811-9 #### [facility] CLIA [id number] [address] [place] [address] [place] Potassium [Moles/Vol] 4.1 mmol/L Normal 3.7-5.1 [facility] Comment on above: Order Comment: Speci men Type: URINE SPECIMEN [facility] Address: [address] [place] [address] Performed By: #### 6 30-4, 72794-8 #### [facility] CLIA [id number] [address] [place] [address] [place] Protein [Mass/Vol] 7.0 g/dL Normal 6.3-8.0 [facility] Comment on above: Order Comment: Speci men Type: URINE SPECIMEN [facility] Address: [address] [place] [address] Performed By: #### 6 30-4, 93539-2 #### [facility] CLIA [id number] [address] [place] [address] [place] Sodium [Moles/Vol] 139 mmol/L Normal 136-144 [facility] Comment on above: Order Comment: Speci men Type: URINE SPECIMEN [facility] Address: [address] [place] [address] Performed By: #### 6 30-4, 94034-6 #### [facility] CLIA [id number] [address] [place] [address] [place] Urea nitrogen [Mass/Vol] 17 mg/dL Normal 7-21 [facility] Comment on above: Order Comment: Speci men Type: URINE SPECIMEN [facility] Address: [address] [place], [place] [address] Performed By: #### 6 30-4, 72121-1 #### [facility] CLIA [id number] [address] [place] [address] [place] Lipid 1996 panelon 5 Cholesterol [Mass/Vol] 128 mg/dL Normal <200 [facility] Comment on above: Order Comment: Speci men Type: URINE SPECIMEN [facility] Address: [address] [place] [address] Result Comment: <200 mg/dL, Desirable 200-239 mg/dL, Borderline high >239 mg/dL, High Performed By: #### 6 30-4, 31805-1 #### [facility] CLIA [id number] [address] [place] [address] [place] Cholesterol in HDL [Mass/Vol] 46 mg/dL Normal >39 [facility] Comment on above: Order Comment: Speci men Type: URINE SPECIMEN [facility] Address: [address] [place] [address] Result Comment: 40-5 9 mg/dL, Acceptable >59 mg/dL, High: Negative risk factor for coronary heart disease <40 mg/dL, Low: Positive risk factor for coronary heart disease Performed By: #### 6 30-4, 81088-0 #### [facility] CLIA [id number] [address] [place] [address] Cholesterol in LDL [Mass/Vol] 65 mg/dL Normal <100 [facility] Comment on above: Order Comment: Speci men Type: URINE SPECIMEN [facility] Address: [address] [place] [address] Result Comment: <100 mg/dL, Optimal 100-129 mg/dL, Near optimal/above optimal 130-159 mg/dL, Borderline high 160-189 mg/dL, High >189 mg/dL, Very high Secondary prevention optimal LDL Cholesterol levels are recommended to be <70 mg/dL LDL cholesterol is calculated using the Veronica-NIH equation. Performed By: #### 6 30-4, 89314-7 #### [facility] CLIA [id number] [address] [place] [address] [place] Cholesterol in LDL/Cholesterol in HDL [Mass ratio] 1.41 {ratio} Normal <2.54 [facility] Comment on above: Order Comment: Speci men Type: URINE SPECIMEN [facility] Address: [address] [place] [address] Result Comment: Refe rence: 1. National Cholesterol Education Program ATP III Guideline At-A-Glance Quick Desk Reference: National Heart, Lung, and Blood [place]. National Institutes of Health. 2001: NIH Publication No. 01-3305. 2. An International Atherosclerosis Society position paper: global recommendations for the management of dyslipidemia: executive summary, Atherosclerosis. 2014: 232(2):410-413. Performed By: #### 6 30-4, 06439-0 #### [facility] CLIA [id number] [address] [place] [address] [place] Cholesterol in VLDL [Mass/Vol] 13 mg/dL Normal <30 [facility] Comment on above: Order Comment: Speci men Type: URINE SPECIMEN [facility] Address: [address] [place] [address] Performed By: #### 6 30-4, 06574-0 #### [facility] CLIA [id number] [address] [place] [address] [place] Cholesterol non HDL [Mass/Vol] 82 mg/dL Normal <130 [facility] Comment on above: Order Comment: Speci men Type: URINE SPECIMEN [facility] Address: [address] [place] [address] Result Comment: <130 mg/dL, Optimal 130-159 mg/dL, Near optimal/above optimal 160-189 mg/dL, Borderline high 190-219 mg/dL, High >219 mg/dL, Very high Secondary prevention optimal non HDL Cholesterol levels are recommended to be <100 mg/dL Performed By: #### 6 30-4, 59067-6 #### [facility] CLIA [id number] [address] [place] [address] [place] Cholesterol.total/Ch olesterol in HDL [Mass ratio] 2.78 {ratio} Normal <5.10 [facility] Comment on above: Order Comment: Speci men Type: URINE SPECIMEN [facility] Address: [address] [place] [address] Performed By: #### 6 30-4, 37484-0 #### [facility] CLIA [id number] [address] [place] [address] [place] FASTING TIME 11 hrs Normal [facility] Comment on above: Order Comment: Speci men Type: URINE SPECIMEN [facility] Address: [address] [place] [address] Performed By: #### 6 30-4, 01526-0 #### [facility] CLIA [id number] [address] [place] [address] [place] Triglyceride [Mass/Vol] 88 mg/dL Normal <150 [facility] Comment on above: Order Comment: Speci men Type: URINE SPECIMEN [facility] Address: [address] [place] [address] Result Comment: <150 mg/dL, Normal 150-199 mg/dL, Borderline high 200-499 mg/dL, High >499 mg/dL, Very high Performed By: #### 6 30-4, 93290-5 #### [facility] CLIA [id number] [address] [place] [address] [place] Magnesium SerPl-mCncon 02-09 Magnesium [Mass/Vol] 2.4 mg/dL High 1.7-2.3 [facility] Comment on above: Order Comment: Speci men Type: URINE SPECIMEN [facility] Address: [address] [place] [address] Performed By: #### 6 30-4, 46863-3 #### [facility] CLIA [id number] [address] [place] [address] [place] Knee 4 or More Viewson 02-03 Knee 4 or More Views [facility] Imaging Services [address] [place] [address] Knee 4 or More Views MR#: [id number] Acct: [id number] Name: RADHA BALDWIN COURTNEY Rep #: [id number] : 1940 F 84 From: Christian zee MD PCP: Dr. Jonny Torres MD Status: REG CLI Study: Knee 4 or More Views Date of Exam: 02/03/25 Exam# [id number] Ordering Dr: Ray Higgins PA PROCEDURE: KNEE 4 OR MORE VIEWS 02/03/2025 REASON FOR EXAM: KNEE PAIN TECHNIQUE: KNEE 4 OR MORE VIEWS COMPARISON: None FINDINGS: Bones: No fracture. No suspicious bone lesion. Joints: Mild degree of joint space narrowing of the medial compartment of the knee joint. Effusion: Tiny joint effusion. Soft tissues: No soft tissue swelling. Other: RAD/Knee 4 or More Views IMPRESSION: DEGENERATIVE OSTEOARTHROSIS. NO ACUTE FINDINGS. Tiny joint effusion. Reading Location: [id number] CC: GEORGIANA Munoz; Dr. Jonny Torres MD Power And Recovery Supervisor: Signed Normal [facility] Visit Reporton 0 02-03-2025 Urgent Care Visit Report [facility] [address], [address] [place], [place] [address] OFFICE VISIT Date of Service: 02/03/25 MR#: [id number] Acct: [id number] Name: RADHA BALDWIN COURTNEY Rep #: [id number] : 1940 Provider: GEORGIANA Munoz Age/Sex: 84/F Location: [facility] Status: Signed Intake Vital Signs 01/12/25 13:59 02/03/25 14:07 Height 5 ft 2 in 5 ft 2 in Weight: 125 lb BMI 22.8 Intake Visit Reasons: R KNEE PAIN Chief Complaint: right knee 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 Is patient in pain?: Yes Allergies fentanyl Allergy (Verified 02/03/25 14:33) Itching codeine Adverse Reaction (Verified 02/03/25 14:33) Nausea/Vom/Diarrhea Penicillins Adverse Reaction (Verified 02/03/25 14:33) Unknown Medications ???Medication ???Instructions ???Recorded ???Confirmed ???Type cholecalciferol (vitamin D3) 25 1,000 unit PO BID Supplement 10/1802/03/25 History mcg (1,000 unit) tablet clopidogrel 75 mg tablet 75 mg PO DAILY antiplatelet #30 1 02/03/25 Rx tabs ascorbate calcium (vitamin C) 500 500 mg PO BID Supplement 03/21/20 02/03/25 History mg tablet aspirin 81 mg tablet,delayed 81 mg PO DAILY Heart Health 02/03/25 History release (Adult Aspirin Regimen) nitroglycerin 0.4 mg sublingual 0.4 mg sublingual Q5-15M PRN chest 03/21/20 02/03/25 History tablet pain vitamin E (dl, acetate) 180 mg 400 unit PO DAILY Supplement 03/2102/03/25 History (400 unit) capsule fluticasone propionate 50 1 spray intranasal DAILY PRN 08/2802/03/25 History mcg/actuation nasal allergy symptoms spray,suspension (24 Hour Allergy Relief) rosuvastatin 5 mg tablet (Crestor) 5 mg PO DAILY Cholesterol 02/03/25 History acetaminophen 500 mg tablet 1,000 mg (2 x 500 mg) PO Q6H PRN 0 09/18/23 02/03/25 Rx PRN Pain Score 1-10 #0 tabs potassium chloride 20 mEq 20 meq PO BIDCM 30 days #60 tabs 0 09/18/23 02/03/25 Rx tablet,extended release(part/cryst) gabapentin 100 mg capsule 100 mg PO QHS 11/10/24 02/03/25 Hi story magnesium 250 mg tablet 500 mg PO QDAY 11/10/24 02/03/25 H istory montelukast 10 mg tablet 10 mg PO QDAY 02/03/25 02/03/25 Hi story omeprazole 20 mg capsule,delayed 20 mg PO QDAY 02/03/25 02/03/25 Hi story release venlafaxine 75 mg capsule,extended 75 mg PO QDAY 02/03/25 02/03/25 History release 24 hr Is last menstrual period known: No Post menopausal: Yes Patient : No Have you fallen in the past year?: Yes Nurse's Note: tripped and fell landing on knees yesterday. pt c/o right knee pain worse with ambulation. denies swelling. bruising noted to right knee, right elbow, right shoulder. pt only concern is knee. hx right femur fx w/repair and right total hip. PFSH Medical History (Updated 02/03/25 @ 17:47 by Ray STONER, PA) History of fracture of femur Nonobstructive atherosclerosis of coronary artery Hyperlipidemia GERD (gastroesophageal reflux disease) IBS (irritable bowel syndrome) Osteoporosis History of CVA (cerebrovascular accident) (06/19/17) Osteoarthritis Surgical History (Updated 02/03/25 @ 14:33 by Fabienne Diggs) History of tubal ligation History of surgery on lower extremity History of tonsillectomy and adenoidectomy History of left heart catheterization (03/26/20) History of total hip arthroplasty Family History Other Heart disease Social History household members: none Smoking Status: Former smoker alcohol intake: never substance use type: does not use HPI HPI Chief Complaint: right knee injury Details: RADHA BALDWIN, is a 84 F who presents to the office today for complaint of right knee pain. Patient states she fell yesterday onto her right knee and has pain and wants to make sure that it is not fractured. Patient reports a history of a femur fracture on that side. She denies any numbness, tingling or loss of range of motion. No other associated symptoms or alleviating/aggravating factors. ROS Const Constitutional: No other (6 system ROS completed with pertinent findings in HPI otherwise normal.) Exam Const General: cooperative and healthy appearing Skin General: no rashes or lesions noted Neuro General: patient alert Extrem General: full ROM and capillary refill normal Other: surface abrasion overlying right knee Psych Appearance: grossly normal Mental Status: mental status grossly normal Coding Level of Care Code Off vis,new,level 4 Diagnoses Contusion of right knee, initial encounter S80.01XA Assessment and Plan Assessment and Plan (1) Contusion of right knee, initial encounter: Status: Acute Plan: Three-view ri (more content not included)... Normal [facility] Orthopedic Visit Reporton Orthopedic Visit Report [facility] [address] [place] [address] OFFICE VISIT Date of Service: 01/12/25 MR#: [id number] Acct: [id number] Name: RADHA BALDWIN [place] Rep #: [id number] : 1940 Provider: GEORGIANA Prabhakar Age/Sex: 84/F Location[facility] Status: Signed Intake Vital Signs 11/10/24 11:05 01/12/25 13:59 Height 5 ft 2 in 5 ft 2 in Weight: 125 lb BMI 22.8 Intake Visit Reasons: THORACIC SPINE Chief Complaint: Lumbar spine MRI review Accompanied by: Self Is patient in pain?: Yes Pain scale (1-10): 4 Allergies fentanyl Allergy (Verified 01/12/25 14:02) Itching codeine Adverse Reaction (Verified 01/12/25 14:02) Nausea/Vom/Diarrhea Penicillins Adverse Reaction (Verified 01/12/25 14:02) Unknown Medications ???Medication ???Instructions ???Recorded ???Confirmed ???Type cholecalciferol (vitamin D3) 25 1,000 unit PO BID Supplement 10/1801/12/25 History mcg (1,000 unit) tablet clopidogrel 75 mg tablet 75 mg PO DAILY antiplatelet #30 1 01/12/25 Rx tabs ascorbate calcium (vitamin C) 500 500 mg PO BID Supplement 03/21/20 01/12/25 History mg tablet aspirin 81 mg tablet,delayed 81 mg PO DAILY Heart Health 01/12/25 History release (Adult Aspirin Regimen) nitroglycerin 0.4 mg sublingual 0.4 mg sublingual Q5-15M PRN chest 03/21/20 01/12/25 History tablet pain vitamin E (dl, acetate) 180 mg 400 unit PO DAILY Supplement 03/2101/12/25 History (400 unit) capsule pantoprazole 40 mg tablet,delayed 40 mg PO Q12H GERD 10/23/2001/12 History release duloxetine 20 mg capsule,delayed 20 mg PO DAILY Mood 08/28/2301/12 History release fluticasone propionate 50 1 spray intranasal DAILY PRN 08/2801/12/25 History mcg/actuation nasal allergy symptoms spray,suspension (24 Hour Allergy Relief) rosuvastatin 5 mg tablet (Crestor) 5 mg PO DAILY Cholesterol 01/12/25 History acetaminophen 500 mg tablet 1,000 mg (2 x 500 mg) PO Q6H PRN 0 09/18/23 01/12/25 Rx PRN Pain Score 1-10 #0 tabs potassium chloride 20 mEq 20 meq PO BIDCM 30 days #60 tabs 0 09/18/23 01/12/25 Rx tablet,extended release(part/cryst) gabapentin 100 mg capsule 100 mg PO QHS 11/10/24 01/12/25 Hi story magnesium 250 mg tablet 500 mg PO QDAY 11/10/24 01/12/25 H istory Have you fallen in the past year?: No PFSH Medical History Nonobstructive atherosclerosis of coronary artery Hyperlipidemia GERD (gastroesophageal reflux disease) IBS (irritable bowel syndrome) Osteoporosis History of CVA (cerebrovascular accident) (06/19/17) Osteoarthritis Surgical History History of left heart catheterization (03/26/20) History of total hip arthroplasty Family History Other Heart disease Social History household members: none Smoking Status: Former smoker alcohol intake: never substance use type: does not use HPI THORACIC SPINE Details: This documentation accurately reflects the service provided and the decisions made by me, GEORGIANA Prabhakar 01/12/25 [id number]. Part of today???s visit was documented by Karli Esquivel MA, acting as scribe. RADHA BALDWIN is a 84 year old F here today for MRI review. Patient would like to go over the MRI results to discuss what the next step is. She denies any resent injections in the back. Patient states that she has been riding her exercises bike everyday. She denies any physical therapy. Patient states that she has been having some lower back pain the past few days. HPI from 11/10/24: RADHA BALDWIN is a 84 year old F here today for low back pain that she has been having for many years. She did have a kyphoplasty of T11 done at [facility] about 3 years ago. At that time she did have a fall that caused the fracture. Patient says that she has a history of osteoporosis and was taking Reclast however she recently has stopped taking that medication due to worrying about side effects. She continues to take jnrm-qzd-qqazivu vitamin D and calcium supplements. At times she does get pain that radiates into either leg but mainly the right. Sometime she gets severe pain to where she can't walk and to make that feel better she will either sit down, lay down and pull her leg towards her to stretch or take Ibuprofen. She does have neuropathy in both legs. She feels that she may have foot drop of her right foot as sometimes it feels like the foot is dragging. She does have some balance issues and does feel that sometime her legs are weak. She has done PT about a year ago whic (more content not included)... Normal [facility] Thoracolumbar 2 Viewson Thoracolumbar 2 Views [facility] [address] [place] [address] Thoracolumbar 2 Views MR#: [id number] Acct: [id number] Name: RADHA BALDWIN [place] Rep #: [id number] : 1940 F 84 From: Ghazal sanders MD PCP: Dr. Jonny Torres MD Status: DEP AMB Study: Thoracolumbar 2 Views Date of Exam: 01/12/25 Exam# [id number] Ordering Dr: Lily Esquivel PROCEDURE: THORACOLUMBAR 2 VIEWS 01/12/2025 REASON FOR EXAM: CHRONIC PAIN TECHNIQUE: Standing AP 2 view(s) of the thoracic and lumbar spine. COMPARISON: MRI on 12/23/2024. FINDINGS: Mild osteopenia. Unchanged moderate chronic compression fracture with prior vertebroplasty at T11. Exaggerated lumbar lordosis. S shaped degenerative scoliosis. There are diffuse spondylotic changes. Findings are demonstrated to by diffuse disc space narrowing, osteophyte formation and degenerative endplate sclerosis. There is diffuse facet joint arthropathy with secondary bilateral neural foramina narrowing. No fracture or dislocation is seen. No aggressive lytic or blastic bony lesion is noted. RAD/Thoracolumbar 2 Views IMPRESSION: Diffuse spondylosis. No evidence for acute abnormality. Reading Location: [place] [address] CC: GEORGIANA Prabhakar; Dr. Jonny Torres MD Power And Recovery Supervisor: Signed Normal [facility] Spine Lumbar (Routine)on Spine Lumbar (Routine) [facility] Imaging Services [address] [place] [id number] Spine Lumbar (Routine) MR#: [id number] Acct: [id number] Name: RADHA BALDWIN [place] Rep #: [id number] : 1940 F 84 From: [facility] PCP: Dr. Jonny Torres MD Status: REG CLI Study: Spine Lumbar (Routine) Date of Exam: 12/23/24 Exam# [id number] Ordering Dr: Lily Esquivel PROCEDURE: SPINE LUMBAR (ROUTINE) 12/23/2024 REASON FOR EXAM: DEGENERATIVE DISC DISEASE, SCOLIOSIS TECHNIQUE: Multiplanar and multisequence images were obtained without IV contrast administration. COMPARISON: Lumbar spine radiograph from 11/10/2024. FINDINGS: Lumbar vertebral bodies maintain normal height. There is levoscoliosis of the lumbar spine with apex of the curvature L2-L3. There is a prior severe compression fracture of T11 with prior vertebroplasty. There is a mild superior endplate compression fracture of T10 with mild bone marrow edema along the superior endplate. There is a hemangioma involving the T9 vertebral body. There is diminished signal intensity involving the discs throughout the lumbar spine and visualized lower thoracic spine related to degenerative disc disease. Multilevel disc space narrowing with endplate spurring is identified. The tip of the conus medullaris terminates at L1 and signal intensity of the included spinal cord is within normal limits. There is mild atrophy of the paraspinous musculature. Bilateral renal cysts are identified largest in the left kidney measuring 7.5 cm. Individual levels: T9-T10: No disc herniation, central canal stenosis, or significant neural foraminal narrowing. T10-T11: Posterior retropulsion of T11 by proximally 4-5 mm results in flattening of the ventral thecal sac and edwh-di-rjugfdyk central canal stenosis. There is mild bilateral neural foraminal narrowing. T11-T12: Mild disc bulge with mild facet/flavum hypertrophy. No significant central canal stenosis is identified. There is mild bilateral neural foraminal narrowing. T12-L1: Mild disc bulge and mild facet/flavum hypertrophy. No significant central canal stenosis or neural foraminal narrowing. L1-L2: Mild retrolisthesis with disc bulge and facet/flavum hypertrophy. No significant central canal stenosis or left neural foraminal narrowing is present. There is mild right neural foraminal narrowing. L2-L3: Mild retrolisthesis with circumferential disc bulge and facet/flavum hypertrophy results in moderate to severe central canal stenosis. There is moderate to severe right and moderate left neural foraminal narrowing. L3-L4: Disc bulge and facet/flavum hypertrophy results in severe central canal stenosis. There is severe narrowing of the bilateral lateral recesses as well as severe bilateral neural foraminal narrowing. L4-L5: Circumferential disc bulge with facet/flavum hypertrophy results in severe central canal stenosis. There is severe bilateral neural foraminal narrowing, lgfs-nmfhbic-iqgl-right. L5-S1: Disc bulge which is asymmetric to the left and facet arthropathy. No significant central canal stenosis is present. There is severe left neural foraminal narrowing and mild right neural foraminal narrowing. MRI/Spine Lumbar (Routine) IMPRESSION: 1. Prior severe compression fracture of T11 with vertebroplasty. There is retropulsion of the posterior, superior endplate of T11 which results in tiiz-mm-fpimdrvk central canal stenosis. 2. Mild superior endplate compression fracture of T10 with bone marrow edema along the superior endplate may be on a subacute basis. 3. Advanced multilevel degenerative disc disease and spondylosis with severe central canal stenosis from L3-L5 and moderate to severe central canal stenosis at L2-L3. Multilevel varying degrees of neural foraminal narrowing are identified which are mostly on a severe basis as above. 4. Levoscoliosis. Reading Location: [facility] CC: GEORGIANA Prabhakar; Dr. Jonny Torres MD Power And Recovery Supervisor: Signed Normal [facility] MR Breast WO and W contrast Mag 11-24-2024 IMPRESSION: No MRI evidence of malignancy. BI-RADS Category 1: Negative Interpreting Radiologist: Kai Fierro M.D. Electronically signed on: 11/24/2024 Power And Recovery Supervisor: LANDEN Transcribe Date/Time: Nov 24 2024 9:56A Dictated by : KAI FIERRO MD This examination was interpreted and the report reviewed and electronically signed by: KAI FIERRO MD on Nov 24 2024 8:17PM [facility] * * *Final Report* * * DATE OF EXAM: Nov 24 2024 10:07AM [facility] [id number] - MRI DENSE BREAST LTD WO/W IVCON / PROCEDURE REASON: multiple diagnoses * * * * Physician Interpretation * * * * [facility] BREAST CTR-GREEN [address] [place], [place] [id number] #[id number] - MRI DENSE BREAST LTD WO/W IVCON HISTORY: 84 year-old patient seen for screening because she has dense breast tissue. Patient states no personal history of breast cancer. The patient has a family history of breast cancer. Per most recent mammogram report dated 09/20/24, the patient's lifetime risk of developing breast cancer is 0.7% (based on Tyrer-Cuzick risk assessment model). COMPARISON STUDIES: The present examination has been compared to prior imaging studies dated 05/19/2016 (mammogram) and 09/04/2017 (mammogram). BREAST MRI: TECHNIQUE: The patient was studied using the dedicated breast coil in the Siemens 1.5 Mari scanner. Initial axial T1W NFS, STIR imaging was carried out followed by axial T1-weighted GRE imaging both before and after IV administration of <> ml of <>. Subsequently, subtraction imaging and 3-D reconstruction were completed on an independent workstation. An additional 7-kwnrpz-gcsc resolution sequence was performed after the first two 1 minute post-contrast sequences. Complex volumetric analysis requiring post processing was performed using a semi-automated software Dynacad, on an independent workstation by the physician, with images created, reviewed, and archived. FINDINGS: There is heterogeneous fibroglandular tissue. There is minimal background parenchymal enhancement. The background parenchymal enhancement is symmetrical. There is no suspicious mass, abnormal enhancement pattern, distortion or other significant abnormality in either breast. [facility] Provider, [facility] [place] - 11/24/2024 * * *Final Report* * * DATE OF EXAM: Nov 24 2024 10:07AM [facility] 8688 - MRI DENSE BREAST LTD WO/W IVCON / PROCEDURE REASON: multiple diagnoses * * * * Physician Interpretation * * * * [facility] BREAST CTR-[address] [address] #[id number] - MRI DENSE BREAST LTD WO/W IVCON HISTORY: 84 year-old patient seen for screening because she has dense breast tissue. Patient states no personal history of breast cancer. The patient has a family history of breast cancer. Per most recent mammogram report dated 09/20/24, the patient's lifetime risk of developing breast cancer is 0.7% (based on Tyrer-Cuzick risk assessment model). COMPARISON STUDIES: The present examination has been compared to prior imaging studies dated 05/19/2016 (mammogram) and 09/04/2017 (mammogram). BREAST MRI: TECHNIQUE: The patient was studied using the dedicated breast coil in the Siemens 1.5 Mari scanner. Initial axial T1W NFS, STIR imaging was carried out followed by axial T1-weighted GRE imaging both before and after IV administration of <> ml of <>. Subsequently, subtraction imaging and 3-D reconstruction were completed on an independent workstation. An additional 1-hxlnan-dmmu resolution sequence was performed after the first two 1 minute post-contrast sequences. Complex volumetric analysis requiring post processing was performed using a semi-automated software Dynacad, on an independent workstation by the physician, with images created, reviewed, and archived. FINDINGS: There is heterogeneous fibroglandular tissue. There is minimal background parenchymal enhancement. The background parenchymal enhancement is symmetrical. There is no suspicious mass, abnormal enhancement pattern, distortion or other significant abnormality in either breast. IMPRESSION IMPRESSION: No MRI evidence of malignancy. BI-RADS Category 1: Negative Interpreting Radiologist: Kai Fierro M.D. Electronically signed on: 11/24/2024 Power And Recovery Supervisor: LANDEN Transcribe Date/Time: Nov 24 2024 9:56A Dictated by : KAI FIERRO MD This examination was interpreted and the report reviewed and electronically signed by: KAI FIERRO MD on Nov 24 2024 8:17PM EST [facility] Radiology Study observation (narrative) [facility] MR Breast WO and W contrast IVOrdered By: [facility] Provider on 11-24-2024 [facility] MRI 3D POST PROCESSINGon MRI 3D POST PROCESSING * * *Final Report* * * DATE OF EXAM: Nov 24 2024 10:14AM [facility] 0280 - MRI 3D POST PROCESSING / PROCEDURE REASON: multiple diagnoses * * * * Physician Interpretation * * * * [facility] BREAST CTR-GREEN [address] [place] [address] #[id number] - MRI DENSE BREAST LTD WO/W IVCON HISTORY: 84 year-old patient seen for screening because she has dense breast tissue. Patient states no personal history of breast cancer. The patient has a family history of breast cancer. Per most recent mammogram report dated 09/20/24, the patient's lifetime risk of developing breast cancer is 0.7% (based on Tyrer-Cuzick risk assessment model). COMPARISON STUDIES: The present examination has been compared to prior imaging studies dated 05/19/2016 (mammogram) and 09/04/2017 (mammogram). BREAST MRI: TECHNIQUE: The patient was studied using the dedicated breast coil in the Siemens 1.5 Mari scanner. Initial axial T1W NFS, STIR imaging was carried out followed by axial T1-weighted GRE imaging both before and after IV administration of 6 ml of Elucirem. Subsequently, subtraction imaging and 3-D reconstruction were completed on an independent workstation. An additional 7-azkkda-lfgo resolution sequence was performed after the first two 1 minute post-contrast sequences. Complex volumetric analysis requiring post processing was performed using a semi-automated software [employer], on an independent workstation by the physician, with images created, reviewed, and archived. FINDINGS: There is heterogeneous fibroglandular tissue. There is minimal background parenchymal enhancement. The background parenchymal enhancement is symmetrical. There is no suspicious mass, abnormal enhancement pattern, distortion or other significant abnormality in either breast. IMPRESSION: No MRI evidence of malignancy. BI-RADS Category 1: Negative Interpreting Radiologist: Kai Fierro M.D. Electronically signed on: 11/24/2024 Power And Recovery Supervisor: todd Transcribe Date/Time: Dec 19 2024 10:34A Dictated by : KAI FIERRO MD This examination was interpreted and the report reviewed and electronically signed by: KAI FIERRO MD on Dec 21 2024 8:51AM EST [id number] Normal [facility] MRI DENSE BREAST LTD WO/W IV CONon 11-24-2024 MRI DENSE BREAST LTD WO/W IVCON * * *Final Report* * * DATE OF EXAM: Nov 24 2024 10:07AM [facility] 8688 - MRI DENSE BREAST LTD WO/W IVCON / PROCEDURE REASON: multiple diagnoses * * * * Physician Interpretation * * * * [facility] BREAST [facility] [id number] #[id number] - MRI DENSE BREAST LTD WO/W IVCON HISTORY: 84 year-old patient seen for screening because she has dense breast tissue. Patient states no personal history of breast cancer. The patient has a family history of breast cancer. Per most recent mammogram report dated 09/20/24, the patient's lifetime risk of developing breast cancer is 0.7% (based on Tyrer-Cuzick risk assessment model). COMPARISON STUDIES: The present examination has been compared to prior imaging studies dated 05/19/2016 (mammogram) and 09/04/2017 (mammogram). BREAST MRI: TECHNIQUE: The patient was studied using the dedicated breast coil in the Siemens 1.5 Mari scanner. Initial axial T1W NFS, STIR imaging was carried out followed by axial T1-weighted GRE imaging both before and after IV administration of <> ml of <>. Subsequently, subtraction imaging and 3-D reconstruction were completed on an independent workstation. An additional 4-rrmizg-fgnv resolution sequence was performed after the first two 1 minute post-contrast sequences. Complex volumetric analysis requiring post processing was performed using a semi-automated software [employer], on an independent workstation by the physician, with images created, reviewed, and archived. FINDINGS: There is heterogeneous fibroglandular tissue. There is minimal background parenchymal enhancement. The background parenchymal enhancement is symmetrical. There is no suspicious mass, abnormal enhancement pattern, distortion or other significant abnormality in either breast. IMPRESSION: No MRI evidence of malignancy. BI-RADS Category 1: Negative Interpreting Radiologist: Kai Fierro M.D. Electronically signed on: 11/24/2024 Power And Recovery Supervisor: LANDEN Transcribe Date/Time: Nov 24 2024 9:56A Dictated by : KAI FIERRO MD This examination was interpreted and the report reviewed and electronically signed by: KAI FIERRO MD on Nov 24 2024 8:17PM EST [id number] Normal [facility] L/S Spine Min 4 Viewson L/S Spine Min 4 Views [facility] Imaging Services [address] [place] [id number] L/S Spine Min 4 Views MR#: [id number] Acct: [id number] Name: RADHA BALDWIN [place] Rep #: [id number] : 1940 F 84 From: Schuyler Estes MD PCP: Dr. Jonny Torres MD Status: DEP AMB Study: L/S Spine Min 4 Views Date of Exam: 11/10/24 Exam# [id number] Ordering Dr: Lily sEquivel PROCEDURE: L/S SPINE MIN 4 VIEWS 11/10/2024 REASON FOR EXAM: CHRONIC PAIN TECHNIQUE: Four views lumbosacral spine; AP, lateral and flexion-extension COMPARISON: None available FINDINGS: 5 pkp-nlp-keyiiix lumbar vertebral type bodies identified. Moderate leftward curvature, scoliosis limits the evaluation. Marked multilevel spondylosis/discogenic change appears greatest at L2-3 and L4-5. Mild retrolisthesis L2 on L3 without significant change on flexion-extension views to suggest instability. Multilevel zbfpc-ijbqezo-nujr-left appearing facet degenerative changes. Severe appearing T11 compression deformity with prior vertebroplasty noted. Mild superior endplate compression deformity at T10. No evidence of lumbar fracture. Abdominal aortic atherosclerotic calcification. 2 calcifications at the lower pelvis may represent uterine fibroids. Partially imaged right hip replacement. Pvyzfuww-gz-euuffx appearing left hip joint narrowing, osteoarthrosis. RAD/L/S Spine Min 4 Views IMPRESSION: Leftward scoliosis, multilevel spondylosis/discogenic change and degenerative facet changes as above. Reading Location: [id number] CC: GEORGIANA Prabhakar; Dr. Jonny Torres MD Power And Recovery Supervisor: Signed Normal [facility] Orthopedic Visit Reporton Orthopedic Visit Report [facility] [address] [place] [address] OFFICE VISIT Date of Service: 11/10/24 MR#: [id number] Acct: [id number] Name: RADHA [place]DWIN [place] Rep #: [id number] : 1940 Provider: GEORGIANA Prabhakar Age/Sex: 84/F Location: [facility] Status: Signed Intake Vital Signs 09/16/23 15:05 11/10/24 11:05 Height 5 ft 2.99 in 5 ft 2 in Weight: 129 lb 2 oz BMI 23.6 Intake Visit Reasons: THORACIC SPINE Allergies fentanyl Allergy (Verified 11/10/24 11:05) Itching codeine Adverse Reaction (Verified 11/10/24 11:05) Nausea/Vom/Diarrhea Penicillins Adverse Reaction (Verified 11/10/24 11:05) Unknown Medications ???Medication ???Instructions ???Recorded ???Confirmed ???Type cholecalciferol (vitamin D3) 25 1,000 unit PO BID Supplement 10/1811/10/24 History mcg (1,000 unit) tablet clopidogrel 75 mg tablet 75 mg PO DAILY antiplatelet #30 1 11/10/24 Rx tabs ascorbate calcium (vitamin C) 500 500 mg PO BID Supplement 03/21/20 11/10/24 History mg tablet aspirin 81 mg tablet,delayed 81 mg PO DAILY Heart Health 11/10/24 History release (Adult Aspirin Regimen) nitroglycerin 0.4 mg sublingual 0.4 mg sublingual Q5-15M PRN chest 03/21/20 11/10/24 History tablet pain vitamin E (dl, acetate) 180 mg 400 unit PO DAILY Supplement 03/2111/10/24 History (400 unit) capsule pantoprazole 40 mg tablet,delayed 40 mg PO Q12H GERD 10/23/2011/10 History release duloxetine 20 mg capsule,delayed 20 mg PO DAILY Mood 08/28/2311/10 History release fluticasone propionate 50 1 spray intranasal DAILY PRN 08/2811/10/24 History mcg/actuation nasal allergy symptoms spray,suspension (24 Hour Allergy Relief) rosuvastatin 5 mg tablet (Crestor) 5 mg PO DAILY Cholesterol 11/10/24 History acetaminophen 500 mg tablet 1,000 mg (2 x 500 mg) PO Q6H PRN 0 09/18/23 11/10/24 Rx PRN Pain Score 1-10 #0 tabs potassium chloride 20 mEq 20 meq PO BIDCM 30 days #60 tabs 0 09/18/23 11/10/24 Rx tablet,extended release(part/cryst) gabapentin 100 mg capsule 100 mg PO QHS 11/10/24 11/10/24 Hi story magnesium 250 mg tablet 500 mg PO QDAY 11/10/24 11/10/24 H istory Have you fallen in the past year?: No PFSH Medical History Nonobstructive atherosclerosis of coronary artery Hyperlipidemia GERD (gastroesophageal reflux disease) IBS (irritable bowel syndrome) Osteoporosis History of CVA (cerebrovascular accident) (06/19/17) Osteoarthritis Surgical History History of left heart catheterization (03/26/20) History of total hip arthroplasty Family History Other Heart disease Social History household members: none Smoking Status: Former smoker alcohol intake: never substance use type: does not use HPI THORACIC SPINE Details: This documentation accurately reflects the service provided and the decisions made by me, GEORGIANA Prabhakar 11/10/24 1102. Part of today???s visit was documented by Gabrielle ZARATE, acting as scribe. RADHA BALDWIN is a 84 year old F here today for low back pain that she has been having for many years. She did have a kyphoplasty of T11 done at [facility] about 3 years ago. At that time she did have a fall that caused the fracture. Patient says that she has a history of osteoporosis and was taking Reclast however she recently has stopped taking that medication due to worrying about side effects. She continues to take [id number]-[id number] vitamin D and calcium supplements. At times she does get pain that radiates into either leg but mainly the right. Sometime she gets severe pain to where she can't walk and to make that feel better she will either sit down, lay down and pull her leg towards her to stretch or take Ibuprofen. She does have neuropathy in both legs. She feels that she may have foot drop of her right foot as sometimes it feels like the foot is dragging. She does have some balance issues and does feel that sometime her legs are weak. She has done PT about a year ago which never helped her and feels being active was as beneficial as the therapy. She has had injections in the past but her last one was 9 years ago when they were trying to decide if her pain then was from her hip or low back as she has a hip replacement of the right hip that was done in 2016. Patient denies recent imaging of her lumbar spine. Ortho Exam General General: Yes no acute distress Neurologic: Yes alert and Yes oriented x3 Spine SPINE TESTING CERVICAL THORACIC LUMBAR Musculoskeletal Strength 0=absent - 5=normal (more content not included)... Normal [facility] Thoracic Spine 2 Viewson Thoracic Spine 2 Views [facility] Imaging Services [facility] [address] [place], [place] [id number] Thoracic Spine 2 Views MR#: [id number] Acct: [id number] Name: RADHA BALDWIN Rep #: [id number] : 1940 F 84 From: Mateusz Maloney MD PCP: Dr. Jonny Torres MD Status: DEP AMB Study: Thoracic Spine 2 Views Date of Exam: 11/10/24 Exam# [id number] Ordering Dr: Lily Esquivel EXAM: XR Thoracic Spine, 2 Views CLINICAL INDICATION: CHRONIC PAIN, HX KYPHOPLASTY TECHNIQUE: Frontal and lateral views of the thoracic spine. COMPARISON: No relevant prior studies available. FINDINGS: VERTEBRAE: Status post vertebroplasty of the 11. Mild anterior wedging deformity of T10 vertebral body. S shaped scoliosis. Degenerative disc disease and facet arthropathy throughout the thoracic spine. Normal alignment. DISC SPACES: See above. SOFT TISSUES: Unremarkable. RAD/Thoracic Spine 2 Views IMPRESSION: Degenerative changes thoracic spine as described. Reading [facility] CC: GEORGIANA Prabhakar; Dr. Jonny Torres MD Power And Recovery Supervisor: Signed Normal [facility] Bacteria Ur Culton Bacteria identified Cx Nom (U) ORGANISM ID: 1 50,000-<100,000 CFU/ml Proteus mirabilis ORGANISM ID: 1 (PROTEUS MIRABILIS) ANTIBIOTIC INTERPRETATION CRIS STATUS REFERENCE RANGE Ampicillin S <=2 F Susceptible <=8 , Intermediate >8 , Resistant >16 Cefazolin S <=4 F Susceptible 0-16 , Intermediate <0 or >16 , Resistant >16 For uncomplicated urinary tract infections, cefazolin results can be used to predict susceptibility or resistance to cephalexin. Ceftriaxone S <=1 F Susceptible <=1 , Intermediate >1 , Resistant >=4 Cefepime S <=1 F Susceptible <=2 , Susceptible-Dose Dependent >2 , Resistant >=16 Ertapenem S <=0.5 F Susceptible <=0.5 , Intermediate >.5 , Resistant >1 Meropenem S <=0.25 F Susceptible <=1 , Intermediate >1 , Resistant >2 Ampicillin/Sulbact S <=2 F Susceptible <=8 , Intermediate >8 , Resistant >16 Piperacillin/Tazobac S <=4 F Susceptible <16 , Susceptible-Dose Dependent >=16 , Resistant >=32 Gentamicin S <=1 F Susceptible <=2 , Intermediate >2 , Resistant >=8 Tobramycin S <=1 F Susceptible <4 , Intermediate >=4 , Resistant >=8 Trimeth sulfameth S <=20 F Susceptible <=40 , Resistant >40 Ciprofloxacin S <=0.25 F Susceptible <0.5 , Intermediate >=.5 , Resistant >=1 Nitrofurantoin R 64 F Abnormal [facility] Comment on above: Performed By: #### 6 30-4 ####[facility] LABCLIA [id number] [place] [id number] [place] CNOVon 10-27-2024 CNOV Office Visit (FAMPWS ) -- RADHA BALDWIN ([id number]) 1940 F Date Time Provider Department 10/27/24 12:40 PM KASSIE BALES FAMPWS During your visit today, we recorded the following information about you: Temperature Pulse Respiration Blood pressure 99.1 degrees 73/minute 12/minute 160/60 Weight 58.1 kg Kassie Bales, TACO.ASSOCIATE PROPERTY MANAGER 10/27/2024 12:38 PM Signed Chief Complaint No chief complaint on file. HPI Radha Baldwin is a 84 year old female who presents here today for Above Complaints. Ann Marie is an established patient of Dr. Sarai MD. Concerns today.. Was seen in [facility] care on 10/16 d/t hematuria and urinary frequency. Dx with UTI and given keflex regimen x 7 days. Per note: ASSESSMENT/PLAN: 1. Urinary frequency - ICD9: 788.41, ICD10: R35.0 acute - UA positive for eduardo esterase, hematuria, and proteinuria - Send urine for culture - Begin treatment with cephalexin for 7 days - UA DIP, URINE (POC) - BACTERIAL CULTURE, URINE 2. Urinary tract infection with hematuria, site unspecified - ICD9: 599.0, 599.70, ICD10: N39.0, R31.9 - CEPHALEXIN 500 MG CAPSULE Today in office.. Pt reports symptoms never completely resolved. Still having burning with urination, worsening hematuria, and persistent urinary urgency AND frequency. Pt reports symptoms improved slightly while on antibiotic but never completely gone. Symptoms worsened again after finishing antibiotic. Antibiotic was finished on Thursday. Past medical history, appointments, medications, allergies reviewed. Previous Medical History PAST MEDICAL HISTORY Diagnosis Date CVA (cerebral vascular accident) (HCC) 06/02/2017 [facility] acute ischemic right posterior putamen stroke on MRI ASA, Plavix atorvastatin. Follow up with Dr. Witt scheduled. 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 May 2017; treated at [facility] Irritable bowel syndrome Osteoporosis, unspecified Stroke (HCC) Thoracic or lumbosacral neuritis or radiculitis, unspecified Unspecified constipation Constipation Previous Surgical History PAST SURGICAL HISTORY Procedure Laterality Date ABDOMINAL SURGERY HX COLONOSCOPY 06/17/2022 repeat in 10 years COLONOSCOPY W/BIOPSY SINGLE/MULTIPLE 02/08/2013 normal appearing DILATION AND CURETTAGE DXAND/THER NONOBSTETRIC Dilation AND curettage EGD 06/17/2022 EGD TRANSORAL BIOPSY SINGLE/MULTIPLE 02/08/2013 duodenitis, gastritis JOINT REPLACEMENT HX LIG/TRNSXJ FLP TUBE ABDL/VAG APPR UNI/BI Tubal ligation TONSILLECTOMY HX TONSILLECTOMY PRIMARY/SECONDARY Tonsillectomy Family History FAMILY HISTORY Problem Relation Age of Onset Cancer Father stomach Heart Father Patient Allergies ALLERGIES Allergen Reactions Fentanyl Itching Codeine GI Upset Penicillins Unknown Current Medications Current Outpatient Medications on File Prior to Visit Medication Sig mometasone (NASONEX) 50 mcg/actuation nasal spray Use 2 Sprays in each nostril once daily. INSTILL 2 SPRAYS IN EACH NOSTRIL ONCE DAILY montelukast (SINGULAIR) 10 mg tablet Take 1 tablet by mouth every afternoon. DULoxetine (CYMBALTA) 20 mg capsule Take 1 capsule by mouth once daily. gabapentin (NEURONTIN) 100 mg capsule Take 1 capsule by mouth daily at bedtime for 180 days. potassium chloride (K-TAB) 10 mEq tablet Take 1 tablet by mouth two times a day. clopidogrel (PLAVIX) 75 mg tablet Take 1 tablet by mouth once daily. rosuvastatin (CRESTOR) 5 mg tablet Take 1 tablet by mouth daily at bedtime. pantoprazole DR (PROTONIX) 40 mg tablet Take 1 tablet by mouth two times a day. Take on empty stomach, 1/2 hr before meal. naproxen (NAPROSYN) 250 mg tablet 4 TIMES DAILY NEEDED scopolamine (TRANSDERM-SCOP) patch 1.5 mg/72 hr (1 mg over 3 days) Apply 1 Patch as directed every 72 hours. nitroglycerin sublingual (NITROQUICK) 0.4 mg SL tablet Dissolve 0.4mg tab (1tab) under tongue every 5min as needed for chest pain. If no response after max 3 tabs go to ED/notify doctor. meclizine (ANTIVERT) 25 mg tab Take 2 tablets by mouth once daily as needed (dizziness/motion sickness). polypodium leucotomos extract (HELIOCARE ORAL) Take 1 tablet by mouth as needed (Hold during the winter). SENNOSIDES/DOCUSATE SODIUM (SENOKOT-S ORAL) Take 1 Dose by mouth once daily as needed. Cholecalciferol, Vitamin D3, 25 mcg (1,000 unit) cap Take 1,000 Units by mouth two times a day. ascorbic acid(VITAMIN C 500 MG TAB) Take one(1) tablet two(2) times daily. acetaminophen(TYLENOL ARTHRITIS PAIN 650 MG TAB) Take two(2) tablets twice daily. VITAMIN E 400IU SOFTGEL Take one(1) capsule twice daily. fluticasone (FLONASE) 50 mcg/ac (more content not included)... Normal [facility] UA DIP, URINE (POC)on 2024 BILIRUBIN UA (POCT) Negative Negative [facility] CLARITY UA (POCT) Cloudy [facility] COLOR UA (POCT) Other [facility] GLUCOSE UA (POCT) Negative Negative mg/dL [facility] Hemoglobin Ql (U) Large Abnormal Negative [facility] Interpretation and review of laboratory results Abnormal [facility] KETONE UA (POCT) Negative Negative mg/dL [facility] LEUKOCYTES UA (POCT) Moderate Abnormal Negative [facility] NITRITE UA (POCT) Negative Negative [facility] PH UA (POCT) 6.5 4.5 - 8.0 [facility] Protein Ql (U) 100 mg/dL Abnormal Negative [facility] SPECIFIC GRAVITY UA (POCT) 1.025 1.005 - 1.030 [facility] UROBILINOGEN UA (POCT) 0.2 Normal E.U./dL [facility] Location:[address], [place], [place], [id number] [place] [address] POINT OF CARE [facility] Bacteria Ur Culton 5 Bacteria identified Cx Nom (U) ORGANISM ID: 1 >=100,000 CFU/ml Proteus mirabilis ORGANISM ID: 2 >=100,000 CFU/ml Escherichia coli ORGANISM ID: 1 (PROTEUS MIRABILIS) ANTIBIOTIC INTERPRETATION CRIS STATUS REFERENCE RANGE Ampicillin S <=2 F Susceptible <=8 , Intermediate >8 , Resistant >16 Cefazolin S <=4 F Susceptible 0-16 , Intermediate <0 or >16 , Resistant >16 For uncomplicated urinary tract infections, cefazolin results can be used to predict susceptibility or resistance to cephalexin. Ceftriaxone S <=1 F Susceptible <=1 , Intermediate >1 , Resistant >=4 Cefepime S <=1 F Susceptible <=2 , Susceptible-Dose Dependent >2 , Resistant >=16 Ertapenem S <=0.5 F Susceptible <=0.5 , Intermediate >.5 , Resistant >1 Meropenem S <=0.25 F Susceptible <=1 , Intermediate >1 , Resistant >2 Ampicillin/Sulbact S <=2 F Susceptible <=8 , Intermediate >8 , Resistant >16 Piperacillin/Tazobac S <=4 F Susceptible <16 , Susceptible-Dose Dependent >=16 , Resistant >=32 Gentamicin S <=1 F Susceptible <=2 , Intermediate >2 , Resistant >=8 Tobramycin S <=1 F Susceptible <4 , Intermediate >=4 , Resistant >=8 Trimeth sulfameth S <=20 F Susceptible <=40 , Resistant >40 Ciprofloxacin S <=0.25 F Susceptible <0.5 , Intermediate >=.5 , Resistant >=1 Nitrofurantoin R F ORGANISM ID: 2 (ESCHERICHIA COLI) ANTIBIOTIC INTERPRETATION CRIS STATUS REFERENCE RANGE Ampicillin S <=2 F Susceptible <=8 , Intermediate >8 , Resistant >16 Cefazolin S <=4 F Susceptible 0-16 , Intermediate <0 or >16 , Resistant >16 For uncomplicated urinary tract infections, cefazolin results can be used to predict susceptibility or resistance to cephalexin. Ceftriaxone S <=1 F Susceptible <=1 , Intermediate >1 , Resistant >=4 Cefepime S <=1 F Susceptible <=2 , Susceptible-Dose Dependent >2 , Resistant >=16 Ertapenem S <=0.5 F Susceptible <=0.5 , Intermediate >.5 , Resistant >1 Meropenem S <=0.25 F Susceptible <=1 , Intermediate >1 , Resistant >2 Ampicillin/Sulbact S <=2 F Susceptible <=8 , Intermediate >8 , Resistant >16 Piperacillin/Tazobac S <=4 F Susceptible <16 , Susceptible-Dose Dependent >=16 , Resistant >=32 Gentamicin S <=1 F Susceptible <=2 , Intermediate >2 , Resistant >=8 Tobramycin S <=1 F Susceptible <4 , Intermediate >=4 , Resistant >=8 Trimeth sulfameth S <=20 F Susceptible <=40 , Resistant >40 Ciprofloxacin S <=0.25 F Susceptible <0.5 , Intermediate >=.5 , Resistant >=1 Nitrofurantoin S <=16 F Susceptible <=32 , Intermediate >32 , Resistant >64 Abnormal [facility] Comment on above: Performed By: #### 6 30-4 ####[facility] LABIA [id number] [place] [id number] [place] CNOVon 10-16-2024 CNOV Office Visit (UCWSTR ) -- RADHA BALDWIN ([id number]) 1940 F Date Time Provider Department 10/16/24 8:30 AM ANTONIO JACINTO UCWSTR During your visit today, we recorded the following information about you: Temperature Pulse Respiration Blood pressure 98.8 degrees 82/minute 16/minute 128/72 Weight 58.2 kg Antonio Jacinto, TACO.ASSOCIATE PROPERTY MANAGER 10/16/2024 8:53 AM Signed [facility] Subjective Radha Baldwin is a 84 year old female. Patient presents with: Urinary Frequency: burning with urination x 4 days HPI Radha Baldwin is a 84 year old female who presents with urgency, frequency, and dysuria x 4 days. States her urine is "muddy looking". She has been taking "cranberry stuff" which has not helped. Denies fever, chills, nausea, vomiting, back pain or abdominal pain. Review of Systems Constitutional: Negative for chills and fever. Respiratory: Negative. Cardiovascular: Negative. Gastrointestinal: Negative for abdominal pain. Genitourinary: Positive for dysuria, frequency and urgency. Negative for difficulty urinating, flank pain and hematuria. Musculoskeletal: Negative for back pain. Skin: Negative for rash. Objective BP 128/72 Pulse 82 Temp 37.1 ?C (98.8 ?F) Resp 16 Wt 58.2 kg (128 lb 4.9 oz) SpO2 97% BMI 23.47 kg/m? PAST MEDICAL HISTORY Diagnosis Date CVA (cerebral vascular accident) ([facility]) 06/02/2017 [facility] acute ischemic right posterior putamen stroke on MRI ASA, Plavix atorvastatin. Follow up with Dr. Witt scheduled. 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 May 2017; treated at [facility] Irritable bowel syndrome Osteoporosis, unspecified Stroke (HCC) Thoracic or lumbosacral neuritis or radiculitis, unspecified Unspecified constipation Constipation PAST SURGICAL HISTORY Procedure Laterality Date ABDOMINAL SURGERY HX COLONOSCOPY 06/17/2022 repeat in 10 years COLONOSCOPY W/BIOPSY SINGLE/MULTIPLE 02/08/2013 normal appearing DILATION AND CURETTAGE DXAND/THER NONOBSTETRIC Dilation AND curettage EGD 06/17/2022 EGD TRANSORAL BIOPSY SINGLE/MULTIPLE 02/08/2013 duodenitis, gastritis JOINT REPLACEMENT HX LIG/TRNSXJ FLP TUBE ABDL/VAG APPR UNI/BI Tubal ligation TONSILLECTOMY HX TONSILLECTOMY PRIMARY/SECONDARY Tonsillectomy ALLERGIES Fentanyl, Codeine, and Penicillins MEDICATIONS mometasone (NASONEX) 50 mcg/actuation nasal spray Use 2 Sprays in each nostril once daily. INSTILL 2 SPRAYS IN EACH NOSTRIL ONCE DAILY montelukast (SINGULAIR) 10 mg tablet Take 1 tablet by mouth every afternoon. DULoxetine (CYMBALTA) 20 mg capsule Take 1 capsule by mouth once daily. gabapentin (NEURONTIN) 100 mg capsule Take 1 capsule by mouth daily at bedtime for 180 days. potassium chloride (K-TAB) 10 mEq tablet Take 1 tablet by mouth two times a day. clopidogrel (PLAVIX) 75 mg tablet Take 1 tablet by mouth once daily. rosuvastatin (CRESTOR) 5 mg tablet Take 1 tablet by mouth daily at bedtime. pantoprazole DR (PROTONIX) 40 mg tablet Take 1 tablet by mouth two times a day. Take on empty stomach, 1/2 hr before meal. naproxen (NAPROSYN) 250 mg tablet 4 TIMES DAILY NEEDED scopolamine (TRANSDERM-SCOP) patch 1.5 mg/72 hr (1 mg over 3 days) Apply 1 Patch as directed every 72 hours. nitroglycerin sublingual (NITROQUICK) 0.4 mg SL tablet Dissolve 0.4mg tab (1tab) under tongue every 5min as needed for chest pain. If no response after max 3 tabs go to ED/notify doctor. meclizine (ANTIVERT) 25 mg tab Take 2 tablets by mouth once daily as needed (dizziness/motion sickness). polypodium leucotomos extract (HELIOCARE ORAL) Take 1 tablet by mouth as needed (Hold during the winter). SENNOSIDES/DOCUSATE SODIUM (SENOKOT-S ORAL) Take 1 Dose by mouth once daily as needed. Cholecalciferol, Vitamin D3, 25 mcg (1,000 unit) cap Take 1,000 Units by mouth two times a day. ascorbic acid(VITAMIN C 500 MG TAB) Take one(1) tablet two(2) times daily. acetaminophen(TYLENOL ARTHRITIS PAIN 650 MG TAB) Take two(2) tablets twice daily. VITAMIN E 400IU SOFTGEL Take one(1) capsule twice daily. fluticasone (FLONASE) 50 mcg/actuation nasal spray Use 1 [place] in each nostril once daily. For allergy season (Patient not taking: Reported on 10/16/2024) FAMILY HISTORY Problem Relation Age of Onset Cancer Father stomach Heart Father Social History Tobacco Use Smoking status: Former Current packs/day: 1.00 Average packs/day: 1 pack/day for 5.0 years (5.0 ttl pk-yrs) Types: Cigarettes Smokeless tobacco: Never Tobacco comments: Quit smoking in the 1969's Vaping Use Vaping status: Never Used Substance Use Topics Alcohol use: No Drug use: No P (more content not included)... Normal [facility] UA DIP, URINE (POC)on 2024 BILIRUBIN UA (POCT) Negative Negative [facility] CLARITY UA (POCT) Cloudy [facility] COLOR UA (POCT) Yellow [facility] GLUCOSE UA (POCT) Negative Negative mg/dL [facility] Hemoglobin Ql (U) Large Abnormal Negative [facility] Interpretation and review of laboratory results Abnormal [facility] KETONE UA (POCT) Negative Negative mg/dL [facility] LEUKOCYTES UA (POCT) Moderate Abnormal Negative [facility] NITRITE UA (POCT) Negative Negative [facility] PH UA (POCT) 7 4.5 - 8.0 [facility] Protein Ql (U) 100 mg/dL Abnormal Negative [facility] SPECIFIC GRAVITY UA (POCT) 1.02 1.005 - 1.030 [facility] UROBILINOGEN UA (POCT) 0.2 Normal E.U./dL [facility] Location:[facility], [address] [place] [address], [place], [address] [facility] POINT OF CARE [facility] CNOVon 09-27-2024 CNOV Office Visit (INTMWS ) -- RADHA BALDWIN ([id number]) 1940 F Date Time Provider Department 09/27/24 1:40 PM MISAEL LARA INTMWS During your visit today, we recorded the following information about you: Temperature Pulse Blood pressure Weight 98.5 degrees 80/minute 156/72 58.6 kg Misael Lara APRN.4TH GRADE TEACHER 09/27/2024 2:35 PM Signed SUBJECTIVE: Anxiety Screening Never done DTaP,Tdap,Td Vaccine(2 - Td or Tdap) due on 06/20/2023 Advance Directive Discussion due on 08/10/2024 HPI Radha Baldwin is a 83 year old female. PMH significant for ACTIVE PROBLEM LIST Constipation Osteoporosis Thoracic Or Lumbosacral Neuritis Or Radiculitis, Unspecified Hyperlipidemia Anemia History of Total Right Hip Arthroplasty Gastroesophageal Reflux Disease Without Esophagitis Recurrent Major Depressive Disorder, in Remission (Hcc) Uveitis History of Recent Stroke Nocturia Vitamin D Deficiency Debility History of Repair of Hip Joint Presents today for follow up regarding test results. Notes sudden onset of breast asymmetry, left greater than right. No injury, illness or infection prior. No lymphadenopathy, no mass, no pain, no skin changes. Review of Systems Constitutional: Negative. Objective There were no vitals taken for this visit. Physical Exam Vitals and nursing note reviewed. Constitutional: Appearance: Normal appearance. HENT: Head: Normocephalic. Eyes: Conjunctiva/sclera: Conjunctivae normal. Cardiovascular: Rate and Rhythm: Normal rate. Pulmonary: Effort: Pulmonary effort is normal. Abdominal: General: Bowel sounds are normal. Palpations: Abdomen is soft. Musculoskeletal: Comments: Walking with walker, status post ORIF right hip healing well, abnormal sensation in toes right greater than left Lymphadenopathy: Head: Right side of head: No submental, submandibular, tonsillar, preauricular, posterior auricular or occipital adenopathy. Left side of head: No submental, submandibular, tonsillar, preauricular, posterior auricular or occipital adenopathy. Cervical: Right cervical: No superficial, deep or posterior cervical adenopathy. Left cervical: No superficial, deep or posterior cervical adenopathy. Upper Body: Right upper body: No supraclavicular or axillary adenopathy. Left upper body: No supraclavicular or axillary adenopathy. Skin: General: Skin is warm and dry. Neurological: General: No focal deficit present. Mental Status: She is alert and oriented to person, place, and time. ALLERGIES Allergen Reactions Fentanyl Itching Codeine GI Upset Penicillins Unknown Medication mometasone (NASONEX) 50 mcg/actuation nasal spray Use 2 Sprays in each nostril once daily. INSTILL 2 SPRAYS IN EACH NOSTRIL ONCE DAILY montelukast (SINGULAIR) 10 mg tablet Take 1 tablet by mouth every afternoon. DULoxetine (CYMBALTA) 20 mg capsule Take 1 capsule by mouth once daily. gabapentin (NEURONTIN) 100 mg capsule Take 1 capsule by mouth daily at bedtime for 180 days. potassium chloride (K-TAB) 10 mEq tablet Take 1 tablet by mouth two times a day. clopidogrel (PLAVIX) 75 mg tablet Take 1 tablet by mouth once daily. rosuvastatin (CRESTOR) 5 mg tablet Take 1 tablet by mouth daily at bedtime. pantoprazole DR (PROTONIX) 40 mg tablet Take 1 tablet by mouth two times a day. Take on empty stomach, 1/2 hr before meal. (Patient taking differently: Take 40 mg by mouth once daily. Take on empty stomach, 1/2 hr before meal.) naproxen (NAPROSYN) 250 mg tablet 4 TIMES DAILY NEEDED scopolamine (TRANSDERM-SCOP) patch 1.5 mg/72 hr (1 mg over 3 days) Apply 1 Patch as directed every 72 hours. (Patient taking differently: Apply 1 Patch as directed every 72 hours. PRN) nitroglycerin sublingual (NITROQUICK) 0.4 mg SL tablet Dissolve 0.4mg tab (1tab) under tongue every 5min as needed for chest pain. If no response after max 3 tabs go to ED/notify doctor. fluticasone (FLONASE) 50 mcg/actuation nasal spray Use 1 [place] in each nostril once daily. For allergy season (Patient not taking: Reported on 07/20/2024) meclizine (ANTIVERT) 25 mg tab Take 2 tablets by mouth once daily as needed (dizziness/motion sickness). polypodium leucotomos extract (HELIOCARE ORAL) Take 1 tablet by mouth as needed (Hold during the winter). SENNOSIDES/DOCUSATE SODIUM (SENOKOT-S ORAL) Take 1 Dose by mouth once daily as needed. Cholecalciferol, Vitamin D3, 25 mcg (1,000 unit) cap Take 1,000 Units by mouth two times a day. ascorbic acid(VITAMIN C 500 MG TAB) Take one(1) tablet two(2) times daily. acetaminophen(TYLENOL ARTHRITIS PAIN 650 MG TAB) Take two(2) tablets twice daily. VITAMIN E 400IU SOFTGEL Take one(1) capsule twice daily. PAST MEDICAL HISTORY Diagnosis Date CVA (cerebral vascular accident) (HCC) 06/02/2017 [facility] acute ischemic right posterior putamen stroke on MRI ASA, Plavix atorva (more content not included)... Normal [facility] DHEA-S Don 09-27-2024 DHEA-S [Mass/Vol] 15.3 ug/dL Normal 12.0-154.0 [facility] Comment on above: Order Comment: Speci men Type: BLOOD SPECIMENOrdering Facility: [facility] [facility] Address: [address] [place] [address] Result Comment: Refe rence ranges are age and gender specific. For additional information, reference range tables can be found in the laboratory test directory. The normal values are based on the following source: Dehydroepiandrosterone sulfate (DHEA S) [package insert V 17.0 Togolese]. [facility], [place], [place]: March 2013. Performed By: #### D FE, 85191-2, 2839-9, 69371-2 ####[facility] LABCLIA [id number] [place] [address] [place] FSH SerPl-aCncon 09-27-2024 Follitropin Qn 41.2 m[IU]/mL Normal See comment [facility] Comment on above: Order Comment: Speci men Type: BLOOD SPECIMENOrdering Facility: [facility] Address: [address] [place] [address] Result Comment: Refe rence range: Follicular: 3.5-12.5 mIU/mL Ovulation: 4.7-21.5 mIU/mL Luteal: 1.7-7.7 mIU/mL Postmenopausal: 25.8-134.8 mIU/mL Performed By: #### D FE, 06528-5, 2839-9, 10308-6 ####[facility] LABCLIA [id number] [facility] [place] [address] [place] HYDROXYPROGESTERONE-17on 17-HYDROXYPROGESTERO NE QUANTITATIVE BY HPLC-MS/MS, SERUM OR PLASMA 6.61 ng/dL Normal <=206.00 [facility] Comment on above: Order Comment: Speci men Type: BLOOD SPECIMEN [facility] Address: [address] [place] [address] Result Comment: INTE RPRETIVE INFORMATION for 17-Hydroxyprogesterone in females: Follicular 15 to 70 ng/dL Luteal 35 to 290 ng/dL REFERENCE INTERVAL: 17-Hydroxyprogesterone Qnt, HPLC-MS/MS Access complete set of age- and/or gender-specific reference intervals for this test in the [employer] [facility] ([employer]). This test was developed and its performance characteristics determined by [facility]. It has not been cleared or approved by the [place] Food and Drug Administration. This test was performed in a CLIA certified laboratory and is intended for clinical purposes. Performed By: [facility] [address] [place] [address] Hosiery Repairer: Sammy Pierson MD, PhD CLIA Number: [id number] Performed By: #### 1 9123-9, 27504-7 #### [facility] CLIA [id number] [address] [place] [address] [place] LH SerPl-aCncon 09-27-2024 Lutropin Qn 19.3 m[IU]/mL Normal See comment [facility] Comment on above: Order Comment: Speci men Type: BLOOD SPECIMENOrdering Facility: [facility] Address: [address] [place] [address] Result Comment: Refe rence range: Follicular: 2.4-12.6 mIU/mL Midcycle: 14.0-95.6 mIU/mL Luteal: 1.0-11.4 mIU/mL [place]: 7.7-58.5 mIU/mL Performed By: #### Tatiana MIRAMONTES, 88905-3, 2839-9, 77871-0 ####[facility] LABCLIA [id number] [place] [address] [place] Progest SerPl-mCncon 09-27- 025 Progesterone [Mass/Vol] ng/mL Normal See comment [facility] Comment on above: Order Comment: Speci men Type: BLOOD SPECIMENOrdering Facility: [facility] Address: [address] [place] [address] Result Comment: Mens trual Cycle Progesterone Reference Ranges: Follicular: <1.0 ng/mL Ovulation: <12.1 ng/mL Luteal: 1.8 to 23.9 ng/mL. Progesterone Reference Ranges vary by gestational period: First Trimester: 11.0 to 44.3 ng/mL Second Trimester: 25.4 to 83.3 ng/mL Third Trimester: 58.7 to 214 ng/mL Post menopausal Progesterone: <0.5 ng/mL Reference: 1. Progesterone (Progesterone III) [package insert V 1.0 Togolese]. [facility], [place], [place]. May 2015. Performed By: #### Tatiana MIRAMONTES, 75130-3, 2839-9, 02836-5 ####[facility] LABCLIA [id number] [place] [address] [place] Prolactin SerPl-mCncon 09-27 Prolactin [Mass/Vol] 8.3 ng/mL Normal 4.4-33.8 [facility] Comment on above: Order Comment: Speci men Type: URINE SPECIMEN [facility] Address: [address] [place] [address] Result Comment: Prol actin test is performed using the [facility] Electrochemiluminescence Immunoassay method. Results obtained with different methods or kits cannot be used interchangeably. Performed By: #### 6 30-4, 43789-2 #### [facility] CLIA [id number] [address] [place] [address] [place] TSH SerPl-aCncon 09-27-2024 TSH Qn 1.410 m[IU]/L Normal 0.270-4.200 [facility] Comment on above: Order Comment: Speci men Type: URINE SPECIMEN [facility] Address: [address] [place] [address] Performed By: #### 6 30-4, 86015-1 #### [facility] CLIA [id number] [address] [place] [address] [place] [address] [place] DBT Breast - bilateral diagn ostic for implanton 09-20-2024 IMPRESSION: There is no mammographic or sonographic evidence of malignancy in either breast. Return to annual screening mammogram is recommended. Annual mammogram will be due in 1 year. BI-RADS Category 1: Negative RISK: Based on the Tyrer-Cuzick (TC) risk assessment model, this patient has a 0.7% lifetime risk of developing breast cancer, meaning they are at average risk for developing breast cancer. However, this is only an estimate based on available history provided on the patient's questionnaire. We encourage all patients to talk with their providers about these results, further recommendations for managing breast health, and appropriate supplemental screening options if the patient has dense breast tissue. Interpreting Radiologist: Stepan Simmons M.D. Electronically signed on: 09/20/2024 Power And Recovery Supervisor: LANDEN Transcribe Date/Time: Sep 20 2024 8:35A Dictated by: STEPAN SIMMONS MD This examination was interpreted and the report reviewed and electronically signed by: STEPAN SIMMONS MD on Sep 20 2024 9:26AM [facility] DIVISION OF RADIOLOGY * * *Final Report* * * DATE OF EXAM: Sep 20 2024 8:49AM [facility] 0627 - JONA DIAG W CHARLES MARIE / PROCEDURE REASON: multiple diagnoses * * * * Physician Interpretation * * * * RESULT: [facility] [address] [place] [address] #[id number] - JONA DIAG W CHARLES MARIE #[id number] - [facility] US BREAST LTD HISTORY: 84 year-old patient seen for diagnostic evaluation of area of clinical concern in the left breast. Patient states no personal history of breast cancer. Patient states no personal history of ovarian cancer. COMPARISON STUDIES: The present examination has been compared to prior imaging studies dated 05/19/2016 (mammogram) and 09/04/2017 (mammogram). MAMMOGRAM TECHNIQUE: The study was acquired using full field digital technology and interpreted from soft copy. Digital Breast Tomosynthesis (DBT) images were obtained and used to assist in the interpretation of this examination. MAMMOGRAM FINDINGS: The breasts are heterogeneously dense, which may obscure small masses. No suspicious masses, calcifications or other abnormalities are seen in either breast. There are no significant interval changes. ULTRASOUND TECHNIQUE: Targeted ultrasound of the indicated area was performed. Perry scale images were saved. ULTRASOUND FINDINGS: There are no suspicious findings in the imaged area. DIVISION OF RADIOLOGY Provider, [facility] - 09/20/2024 * * *Final Report* * * DATE OF EXAM: Sep 20 2024 8:49AM W 0627 - [facility] ALVARO Brooks CHARLES MARIE / PROCEDURE REASON: multiple diagnoses * * * * Physician Interpretation * * * * RESULT: [place] [address] #[id number] - JONA ALVARO Brooks CHARLES MARIE #[id number] - [facility] US BREAST LTD HISTORY: 84 year-old patient seen for diagnostic evaluation of area of clinical concern in the left breast. Patient states no personal history of breast cancer. Patient states no personal history of ovarian cancer. COMPARISON STUDIES: The present examination has been compared to prior imaging studies dated 05/19/2016 (mammogram) and 09/04/2017 (mammogram). MAMMOGRAM TECHNIQUE: The study was acquired using full field digital technology and interpreted from soft copy. Digital Breast Tomosynthesis (DBT) images were obtained and used to assist in the interpretation of this examination. MAMMOGRAM FINDINGS: The breasts are heterogeneously dense, which may obscure small masses. No suspicious masses, calcifications or other abnormalities are seen in either breast. There are no significant interval changes. ULTRASOUND TECHNIQUE: Targeted ultrasound of the indicated area was performed. Perry scale images were saved. ULTRASOUND FINDINGS: There are no suspicious findings in the imaged area. IMPRESSION IMPRESSION: There is no mammographic or sonographic evidence of malignancy in either breast. Return to annual screening mammogram is recommended. Annual mammogram will be due in 1 year. BI-RADS Category 1: Negative RISK: Based on the Tyrer-Cuzick (TC) risk assessment model, this patient has a 0.7% lifetime risk of developing breast cancer, meaning they are at average risk for developing breast cancer. However, this is only an estimate based on available history provided on the patient's questionnaire. We encourage all patients to talk with their providers about these results, further recommendations for managing breast health, and appropriate supplemental screening options if the patient has dense breast tissue. Interpreting Radiologist: Stepan Simmons M.D. Electronically signed on: 09/20/2024 Power And Recovery Supervisor: LANDEN Transcribe Date/Time: Sep 20 2024 8:35A Dictated by: STEPAN SIMMONS MD This examination was interpreted and the report reviewed and electronically signed by: STEPAN SIMMONS MD on Sep 20 2024 9:26AM EST [facility] DIAG W CHARLES BILon 2024 JONA DIAG W CHARLES MARIE * * *Final Report* * * DATE OF EXAM: Sep 20 2024 8:49AM [facility] 0627 - [facility] DIAG W CHARLES MARIE / PROCEDURE REASON: multiple diagnoses * * * * Physician Interpretation * * * * RESULT: [place] [address] #[id number] - [facility] DIAG W CHARLES MARIE #[id number] - [facility] BREAST [facility] HISTORY: 84 year-old patient seen for diagnostic evaluation of area of clinical concern in the left breast. Patient states no personal history of breast cancer. Patient states no personal history of ovarian cancer. COMPARISON STUDIES: The present examination has been compared to prior imaging studies dated 05/19/2016 (mammogram) and 09/04/2017 (mammogram). MAMMOGRAM TECHNIQUE: The study was acquired using full field digital technology and interpreted from soft copy. Digital Breast Tomosynthesis (DBT) images were obtained and used to assist in the interpretation of this examination. MAMMOGRAM FINDINGS: The breasts are heterogeneously dense, which may obscure small masses. No suspicious masses, calcifications or other abnormalities are seen in either breast. There are no significant interval changes. ULTRASOUND TECHNIQUE: Targeted ultrasound of the indicated area was performed. Perry scale images were saved. ULTRASOUND FINDINGS: There are no suspicious findings in the imaged area. IMPRESSION: There is no mammographic or sonographic evidence of malignancy in either breast. Return to annual screening mammogram is recommended. Annual mammogram will be due in 1 year. BI-RADS Category 1: Negative RISK: Based on the Tyrer-Cuzick (TC) risk assessment model, this patient has a 0.7% lifetime risk of developing breast cancer, meaning they are at average risk for developing breast cancer. However, this is only an estimate based on available history provided on the patient's questionnaire. We encourage all patients to talk with their providers about these results, further recommendations for managing breast health, and appropriate supplemental screening options if the patient has dense breast tissue. Interpreting Radiologist: Stepan Simmons M.D. Electronically signed on: 09/20/2024 Power And Recovery Supervisor: LANDEN Transcrimaynor Date/Time: Sep 20 2024 8:35A Dictated by: STEPAN SIMMONS MD This examination was interpreted and the report reviewed and electronically signed by: STEPAN SIMMONS MD on Sep 20 2024 9:26AM EST [id number] Normal [facility] BREAST [facility] 09-20 [facility] BREAST [facility] * * *Final Report* * * DATE OF EXAM: Sep 20 2024 9:19AM WRU 0593 - [facility] BREAST [facility] / PROCEDURE REASON: multiple diagnoses * * * * Physician Interpretation * * * * [facility] [address] [place] [address] #[id number] - [facility] ALVARO MARTINS #[id number] - [facility] BREAST [facility] HISTORY: 84 year-old patient seen for diagnostic evaluation of area of clinical concern in the left breast. Patient states no personal history of breast cancer. Patient states no personal history of ovarian cancer. COMPARISON STUDIES: The present examination has been compared to prior imaging studies dated 05/19/2016 (mammogram) and 09/04/2017 (mammogram). MAMMOGRAM TECHNIQUE: The study was acquired using full field digital technology and interpreted from soft copy. Digital Breast Tomosynthesis (DBT) images were obtained and used to assist in the interpretation of this examination. MAMMOGRAM FINDINGS: The breasts are heterogeneously dense, which may obscure small masses. No suspicious masses, calcifications or other abnormalities are seen in either breast. There are no significant interval changes. ULTRASOUND TECHNIQUE: Targeted ultrasound of the indicated area was performed. Perry scale images were saved. ULTRASOUND FINDINGS: There are no suspicious findings in the imaged area. IMPRESSION: There is no mammographic or sonographic evidence of malignancy in either breast. Return to annual screening mammogram is recommended. Annual mammogram will be due in 1 year. BI-RADS Category 1: Negative RISK: Based on the Tyrer-Cuzick (TC) risk assessment model, this patient has a 0.7% lifetime risk of developing breast cancer, meaning they are at average risk for developing breast cancer. However, this is only an estimate based on available history provided on the patient's questionnaire. We encourage all patients to talk with their providers about these results, further recommendations for managing breast health, and appropriate supplemental screening options if the patient has dense breast tissue. Interpreting Radiologist: Stepan Simmons M.D. Electronically signed on: 09/20/2024 Power And Recovery Supervisor: LANDEN Transcrimaynor Date/Time: Sep 20 2024 9:15A Dictated by : STEPAN SIMMONS MD This examination was interpreted and the report reviewed and electronically signed by: STEPAN SIMMNOS MD on Sep 20 2024 9:26AM EST [id number] Normal [facility] No Panel InformationOrdered By: [facility] Provider on 09-20-2024 [facility] No Panel Informationon 09-20 Radiology Study observation (narrative) [facility] US Breast - left limitedon 0 09-20-2024 IMPRESSION: There is no mammographic or sonographic evidence of malignancy in either breast. Return to annual screening mammogram is recommended. Annual mammogram will be due in 1 year. BI-RADS Category 1: Negative RISK: Based on the Tyrer-Cuzick (TC) risk assessment model, this patient has a 0.7% lifetime risk of developing breast cancer, meaning they are at average risk for developing breast cancer. However, this is only an estimate based on available history provided on the patient's questionnaire. We encourage all patients to talk with their providers about these results, further recommendations for managing breast health, and appropriate supplemental screening options if the patient has dense breast tissue. Interpreting Radiologist: Stepan Simmons M.D. Electronically signed on: 09/20/2024 Power And Recovery Supervisor: LANDEN Transcribe Date/Time: Sep 20 2024 9:15A Dictated by : STEPAN SIMMONS MD This examination was interpreted and the report reviewed and electronically signed by: STEPAN SIMMONS MD on Sep 20 2024 9:26AM [facility] DIVISION OF RADIOLOGY * * *Final Report* * * DATE OF EXAM: Sep 20 2024 9:19AM [facility] 0593 [facility] LT / PROCEDURE REASON: multiple diagnoses * * * * Physician Interpretation * * * * [place] [address] #[id number] - [facility] ALVARO Brooks CHARLES MARIE #[id number] - [facility] anchor.travel LT HISTORY: 84 year-old patient seen for diagnostic evaluation of area of clinical concern in the left breast. Patient states no personal history of breast cancer. Patient states no personal history of ovarian cancer. COMPARISON STUDIES: The present examination has been compared to prior imaging studies dated 05/19/2016 (mammogram) and 09/04/2017 (mammogram). MAMMOGRAM TECHNIQUE: The study was acquired using full field digital technology and interpreted from soft copy. Digital Breast Tomosynthesis (DBT) images were obtained and used to assist in the interpretation of this examination. MAMMOGRAM FINDINGS: The breasts are heterogeneously dense, which may obscure small masses. No suspicious masses, calcifications or other abnormalities are seen in either breast. There are no significant interval changes. ULTRASOUND TECHNIQUE: Targeted ultrasound of the indicated area was performed. Perry scale images were saved. ULTRASOUND FINDINGS: There are no suspicious findings in the imaged area. DIVISION OF RADIOLOGY Provider, [facility] - 09/20/2024 * * *Final Report* * * DATE OF EXAM: Sep 20 2024 9:19AM [facility] 0593 - [place] LT / PROCEDURE REASON: multiple diagnoses * * * * Physician Interpretation * * * * [place] [address] #[id number] - ZLO ALVARO MARTINS #[id number] - [facility] US BREAST LTD LT HISTORY: 84 year-old patient seen for diagnostic evaluation of area of clinical concern in the left breast. Patient states no personal history of breast cancer. Patient states no personal history of ovarian cancer. COMPARISON STUDIES: The present examination has been compared to prior imaging studies dated 05/19/2016 (mammogram) and 09/04/2017 (mammogram). MAMMOGRAM TECHNIQUE: The study was acquired using full field digital technology and interpreted from soft copy. Digital Breast Tomosynthesis (DBT) images were obtained and used to assist in the interpretation of this examination. MAMMOGRAM FINDINGS: The breasts are heterogeneously dense, which may obscure small masses. No suspicious masses, calcifications or other abnormalities are seen in either breast. There are no significant interval changes. ULTRASOUND TECHNIQUE: Targeted ultrasound of the indicated area was performed. Perry scale images were saved. ULTRASOUND FINDINGS: There are no suspicious findings in the imaged area. IMPRESSION IMPRESSION: There is no mammographic or sonographic evidence of malignancy in either breast. Return to annual screening mammogram is recommended. Annual mammogram will be due in 1 year. BI-RADS Category 1: Negative RISK: Based on the Tyrer-Cuzick (TC) risk assessment model, this patient has a 0.7% lifetime risk of developing breast cancer, meaning they are at average risk for developing breast cancer. However, this is only an estimate based on available history provided on the patient's questionnaire. We encourage all patients to talk with their providers about these results, further recommendations for managing breast health, and appropriate supplemental screening options if the patient has dense breast tissue. Interpreting Radiologist: Stepan Simmons M.D. Electronically signed on: 09/20/2024 Power And Recovery Supervisor: LANDEN Transcribe Date/Time: Sep 20 2024 9:15A Dictated by : STEPAN SIMMONS MD This examination was interpreted and the report reviewed and electronically signed by: STEPAN SIMMONS MD on Sep 20 2024 9:26AM EST [facility] CNOVon 09-09-2024 CNOV Office Visit (INTMWS ) -- RADHA BALDWIN ([id number]) 1940 F Date Time Provider Department 09/09/24 1:20 PM KENNY PANDEY INTMVAZQUEZ During your visit today, we recorded the following information about you: Pulse Respiration Blood pressure Weight 84/minute 16/minute 148/80 58.1 kg Kenny Pandey APRN.ASSOCIATE PROPERTY MANAGER 09/09/2024 1:47 PM Signed CC: Patient presents with: Cough Breast Problem: L breast enlargment HPI Radha Baldwin is a 84 year old female who presents today for left breast changes. Has noticed in the last few weeks dramatic size changes to her left breast and is now much larger then the right. Denies any injuries, recent illnesses, skin changes, changes in weight, fatigue, fever, chills, cough, wheezing, chest pain, edema, pain, tenderness, nipple changes, nipple drainage, discoloration, or other concerns. Last mammogram was in 2018 and was normal and no history of abnormal mammograms, biopsies, or lymphatic issues. History of paternal aunt with breast cancer no other family history of breast cancer. REVIEW OF SYSTEMS See HPI PAST MEDICAL HISTORY Diagnosis Date CVA (cerebral vascular accident) (HCC) 06/02/2017 [facility] acute ischemic right posterior putamen stroke on MRI ASA, Plavix atorvastatin. Follow up with Dr. Witt scheduled. 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 May 2017; treated at [facility] Irritable bowel syndrome Osteoporosis, unspecified Stroke (HCC) Thoracic or lumbosacral neuritis or radiculitis, unspecified Unspecified constipation Constipation PAST SURGICAL HISTORY Procedure Laterality Date ABDOMINAL SURGERY HX COLONOSCOPY 06/17/2022 repeat in 10 years COLONOSCOPY W/BIOPSY SINGLE/MULTIPLE 02/08/2013 normal appearing DILATION AND CURETTAGE DXAND/THER NONOBSTETRIC Dilation AND curettage EGD 06/17/2022 EGD TRANSORAL BIOPSY SINGLE/MULTIPLE 02/08/2013 duodenitis, gastritis JOINT REPLACEMENT HX LIG/TRNSXJ FLP TUBE ABDL/VAG APPR UNI/BI Tubal ligation TONSILLECTOMY HX TONSILLECTOMY PRIMARY/SECONDARY Tonsillectomy ALLERGIES Fentanyl, Codeine, and Penicillins MEDICATIONS mometasone (NASONEX) 50 mcg/actuation nasal spray Use 2 Sprays in each nostril once daily. INSTILL 2 SPRAYS IN EACH NOSTRIL ONCE DAILY montelukast (SINGULAIR) 10 mg tablet Take 1 tablet by mouth every afternoon. DULoxetine (CYMBALTA) 20 mg capsule Take 1 capsule by mouth once daily. gabapentin (NEURONTIN) 100 mg capsule Take 1 capsule by mouth daily at bedtime for 180 days. potassium chloride (K-TAB) 10 mEq tablet Take 1 tablet by mouth two times a day. clopidogrel (PLAVIX) 75 mg tablet Take 1 tablet by mouth once daily. rosuvastatin (CRESTOR) 5 mg tablet Take 1 tablet by mouth daily at bedtime. pantoprazole DR (PROTONIX) 40 mg tablet Take 1 tablet by mouth two times a day. Take on empty stomach, 1/2 hr before meal. (Patient taking differently: Take 40 mg by mouth once daily. Take on empty stomach, 1/2 hr before meal.) naproxen (NAPROSYN) 250 mg tablet 4 TIMES DAILY NEEDED scopolamine (TRANSDERM-SCOP) patch 1.5 mg/72 hr (1 mg over 3 days) Apply 1 Patch as directed every 72 hours. (Patient taking differently: Apply 1 Patch as directed every 72 hours. PRN) nitroglycerin sublingual (NITROQUICK) 0.4 mg SL tablet Dissolve 0.4mg tab (1tab) under tongue every 5min as needed for chest pain. If no response after max 3 tabs go to ED/notify doctor. fluticasone (FLONASE) 50 mcg/actuation nasal spray Use 1 [place] in each nostril once daily. For allergy season (Patient not taking: Reported on 07/20/2024) meclizine (ANTIVERT) 25 mg tab Take 2 tablets by mouth once daily as needed (dizziness/motion sickness). polypodium leucotomos extract (HELIOCARE ORAL) Take 1 tablet by mouth as needed (Hold during the winter). SENNOSIDES/DOCUSATE SODIUM (SENOKOT-S ORAL) Take 1 Dose by mouth once daily as needed. Cholecalciferol, Vitamin D3, 25 mcg (1,000 unit) cap Take 1,000 Units by mouth two times a day. ascorbic acid(VITAMIN C 500 MG TAB) Take one(1) tablet two(2) times daily. acetaminophen(TYLENOL ARTHRITIS PAIN 650 MG TAB) Take two(2) tablets twice daily. VITAMIN E 400IU SOFTGEL Take one(1) capsule twice daily. FAMILY HISTORY Problem Relation Age of Onset Cancer Father stomach Heart Father Social History Tobacco Use Smoking status: Former Current packs/day: 1.00 Average packs/day: 1 pack/day for 5.0 years (5.0 ttl pk-yrs) Types: Cigarettes Smokeless tobacco: Never Tobacco comments: Quit smoking in the s Vaping Use Vaping status: Never Used Substance Use Topics Alcohol use: No Drug use: No PHYSICAL EXAM BP 148/80 Pulse 84 Resp 16 Wt 5 (more content not included)... Normal [facility] XR FEMUR RIGHT 2+ VIEWS (STA NDARD)on 08-15-2024 XR FEMUR RIGHT 2+ VIEWS (STANDARD) EXAMINATION: XR FEMUR RIGHT 2+ VIEWS (STANDARD) HISTORY: Dx: Z09 (Follow-up exam) Injury/Trauma or Illness?:Injury/Trauma How long have you had these symptoms (acute/chronic)?:Chronic ORDERING SYSTEM PROVIDED HISTORY: Follow-up exam, TECHNOLOGIST PROVIDED HISTORY: Injury/Trauma Reason for exam: 1 year follow up from fracture and surgery 08/22/23 Cancer History: U Surgery, RadiationHistory: U Encounter Type: Subsequent/Follow-up Mechanism of injury: Twisting fall ORDERING SYSTEM PROVIDED DIAGNOSIS CODES: Z09 Follow-up exam COMPARISON: Radiograph February 19, 2024. IMPRESSION: Mature callus formation about the periprosthetic right femoral fracture status post ORIF. No significant residual fracture lucencies. Right total hip arthroplasty. Osteopenia. Calcified uterine fibroids. Workstation ID: [id number] Dictated by: HEAVEN DEAL on ThuAug 15, 2024 1:57:31 PM EST Transcribed by: HEAVEN DEAL on ThuAug 15, 2024 1:57:31 PM EST Finalized by: HEAVEN DEAL on ThuAug 15, 2024 1:57:31 PM EST Normal [facility] Comment on above: Order Comment: Injur y/Trauma or Illness?:Injury/Trauma How long have you had these symptoms (acute/chronic)?:Chronic Reason for exam?:1 year follow up from fracture and surgery 08/22/23 History of cancer?:U Surgeries, chemotherapy, or radiation?:U Type of Exam?:Subsequent/Follow-up Mechanism of injury?:Twisting fall CNOVon 07-20-2024 CNOV Office Visit (INTMWS ) -- RADHA BALDWIN ([id number]) 1940 F Date Time Provider Department 07/20/24 11:00 AM JONNY TORRES INTMWS During your visit today, we recorded the following information about you: Temperature Pulse Respiration Blood pressure 98 degrees 80/minute 16/minute 112/64 Weight 57.9 kg Jonny Torres MD 07/20/2024 12:44 PM Signed This note was created using NoteWriter. Subjective Radha Baldwin is a 84 year old female. Patient presents with: F/U 6 months: Labs prior SUBJECTIVE: Radha Baldwin is a 84 year old year old lady here today for 6 month follow up appointment for review of medical conditions. Radha Baldwin is an 84-year-old female with a history of osteoporosis, femur fracture, and GERD, presenting for a 6-month follow-up. Radha reports a history of osteoporosis and has been receiving Reclast infusions annually since 2014, with the most recent infusion in July of last year. She sustained a femur fracture due to a torque injury, not a fall, and believes the fracture was related to her osteoporosis rather than the medication. She expresses concern about the long-term use of Reclast and mentions reading that it can cause atypical femur fractures. She also reports difficulty with balance and gait, stating, "I walk like a drunk," which she attributes to a leg length discrepancy following hip surgery and the presence of hardware. She denies recent falls. Radha is currently taking calcium and vitamin D supplements. Recent lab results show a calcium level of 10 mg/dL and a vitamin D level of 58.8 ng/mL. She also reports low potassium levels despite taking 10 mEq of potassium daily. She is also taking duloxetine 20 mg daily and has read about a recent recall of certain lot numbers due to potential contamination. She is also on gabapentin for neuropathy, which has improved but now affects her ankles and feet. She is also taking pantoprazole once daily for GERD and reports increased reflux symptoms, particularly with certain foods like tomato paste. She denies using Carafate and prefers [id number] antacids as needed. Additionally, she is taking mometasone nasal spray and montelukast for post-nasal drip and drainage. She denies any issues with these medications. PAST MEDICAL HISTORY Diagnosis Date CVA (cerebral vascular accident) ([facility]) 06/02/2017 [facility] acute ischemic right posterior putamen stroke on MRI ASA, Plavix atorvastatin. Follow up with Dr. Witt scheduled. 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 May 2017; treated at [facility] Irritable bowel syndrome Osteoporosis, unspecified Stroke ([facility]) Thoracic or lumbosacral neuritis or radiculitis, unspecified Unspecified constipation Constipation Current Outpatient Medications Medication Sig clopidogrel (PLAVIX) 75 mg tablet Take 1 tablet by mouth once daily. potassium chloride (K-TAB) 10 mEq tablet Take 1 tablet by mouth daily with breakfast. rosuvastatin (CRESTOR) 5 mg tablet Take 1 tablet by mouth daily at bedtime. pantoprazole DR (PROTONIX) 40 mg tablet Take 1 tablet by mouth two times a day. Take on empty stomach, 1/2 hr before meal. (Patient taking differently: Take 40 mg by mouth once daily. Take on empty stomach, 1/2 hr before meal.) naproxen (NAPROSYN) 250 mg tablet 4 TIMES DAILY NEEDED gabapentin (NEURONTIN) 100 mg capsule Take 1 capsule by mouth daily at bedtime for 180 days. DULoxetine (CYMBALTA) 20 mg capsule Take 1 capsule by mouth once daily. sucralfate (CARAFATE) 1 gram tablet Take 1 tablet by mouth four times daily. Dissolve in 1 TBSP of water, before meals and at bedtime as directed (Patient taking differently: Take 1 g by mouth as needed. Dissolve in 1 TBSP of water, before meals and at bedtime as directed) scopolamine (TRANSDERM-SCOP) patch 1.5 mg/72 hr (1 mg over 3 days) Apply 1 Patch as directed every 72 hours. (Patient taking differently: Apply 1 Patch as directed every 72 hours. PRN) nitroglycerin sublingual (NITROQUICK) 0.4 mg SL tablet Dissolve 0.4mg tab (1tab) under tongue every 5min as needed for chest pain. If no response after max 3 tabs go to ED/notify doctor. meclizine (ANTIVERT) 25 mg tab Take 2 tablets by mouth once daily as needed (dizziness/motion sickness). polypodium leucotomos extract (HELIOCARE ORAL) Take 1 tablet by mouth as needed (Hold during the winter). SENNOSIDES/DOCUSATE SODIUM (SENOKOT-S ORAL) Take 1 Dose by mouth once daily as needed. Cholecalciferol, Vitamin D3, 25 mcg (1,000 unit) cap Take 1,000 Units by mouth two times a day. ascorbic acid(VITAMIN C 500 MG TAB) Take one(1) tablet two(2) times daily (more content not included)... Normal [facility] 25-hydroxyvitamin D3 [Mass/Vol] 58.8 ng/mL Normal 31.0-80.0 [facility] Comment on above: Order Comment: Speci men Type: URINE SPECIMEN Ordering Facility: [facility] Address: [address] [place] [address] Result Comment: Clas sification of 25 [place] Vitamin D status: Deficiency/Insufficiency: < or = 30 ng/ml. Sufficiency/Optimal Levels: 31-80 ng/mL Toxicity: > 100 ng/mL. Test performed by chemiluminescent immunoassay. Performed By: #### 6 30-4, 67111-0 #### [facility] CLIA [id number] [address] [place] [address] [place] CBC panel Auto (Bld)on 07-15 Erythrocyte distribution width (RBC) [Ratio] 12.8 % Normal 11.5-15.0 [facility] Comment on above: Order Comment: Speci men Type: URINE SPECIMEN Ordering Facility: [facility] Address: [address] [place] [address] Performed By: #### 6 30-4, 60073-1 #### [facility] CLIA [id number] [address] [place] [address] [place] Hematocrit (Bld) [Volume fraction] 36.8 % Normal 36.0-46.0 [facility] Comment on above: Order Comment: Speci men Type: URINE SPECIMEN Ordering Facility: [facility] Address: [address] [place] [address] Performed By: #### 6 30-4, 17550-2 #### [facility] CLIA [id number] [address] [place] [address] [place] Hemoglobin (Bld) [Mass/Vol] 11.8 g/dL Normal 11.5-15.5 [facility] Comment on above: Order Comment: Speci men Type: URINE SPECIMEN Ordering Facility: [facility] Address: [address] [place] [address] Performed By: #### 6 30-4, 05332-2 #### [facility] CLIA [id number] [address] [place] [address] [place] MCH (RBC) [Entitic mass] 30.9 pg Normal 26.0-34.0 [facility] Comment on above: Order Comment: Speci men Type: URINE SPECIMEN Ordering Facility: [facility] Address: [address] [place] [address] Performed By: #### 6 30-4, 26073-2 #### [facility] CLIA [id number] [address] [place] [address] [place] MCHC (RBC) [Mass/Vol] 32.1 g/dL Normal 30.5-36.0 [facility] Comment on above: Order Comment: Speci men Type: URINE SPECIMEN Ordering Facility: [facility] Address: [address] [place] [address] Performed By: #### 6 30-4, 57038-6 #### [facility] CLIA [id number] [address] [place] [address] [place] MCV (RBC) [Entitic vol] 96.3 fL Normal 80.0-100.0 [facility] Comment on above: Order Comment: Speci men Type: URINE SPECIMEN Ordering Facility: [facility] Address: [address] [place] [address] Performed By: #### 6 30-4, 47797-3 #### [facility] CLIA [id number] [address] [place] [address] [place] Nucleated RBC (Bld) [#/Vol] 10*3/uL Normal <0.01 [facility] Comment on above: Order Comment: Speci men Type: URINE SPECIMEN Ordering Facility: [facility] Address: [address] [place] [address] Performed By: #### 6 30-4, 09509-6 #### [facility] CLIA [id number] [address] [place] [address] [place] Platelet mean volume (Bld) [Entitic vol] 8.8 fL Low 9.0-12.7 [facility] Comment on above: Order Comment: Speci men Type: URINE SPECIMEN Ordering Facility: [facility] Address: [address] [place] [address] Performed By: #### 6 30-4, 92700-6 #### [facility] CLIA [id number] [address] [place] [address] [place] Platelets (Bld) [#/Vol] 288 10*3/uL Normal 150-400 [facility] Comment on above: Order Comment: Speci men Type: URINE SPECIMEN Ordering Facility: [facility] Address: [address] [place] [address] Performed By: #### 6 30-4, 72858-4 #### [facility] CLIA [id number] [address] [place] [address] [place] RBC (Bld) [#/Vol] 3.82 10*6/uL Low 3.90-5.20 [facility] Comment on above: Order Comment: Speci men Type: URINE SPECIMEN Ordering Facility[facility] Address: [address] [place] [address] Performed By: #### 6 30-4, 03155-6 #### [facility] CLIA [id number] [address] [place] [address] [place] WBC (Bld) [#/Vol] 7.27 10*3/uL Normal 3.70-11.00 [facility] Comment on above: Order Comment: Speci men Type: URINE SPECIMEN Ordering Facility[facility] Address: [address] [place] [address] Performed By: #### 6 30-4, 75189-3 #### [facility] CLIA [id number] [address] [place] [address] [place] Comprehensive metabolic 2000 panelon 07-15-2024 Albumin [Mass/Vol] 4.5 g/dL Normal 3.9-4.9 [facility] Comment on above: Order Comment: Speci men Type: BLOOD SPECIMEN Order[facility] Facility[facility] Address: [address] [place] [address] Performed By: #### 1 9123-9, 34175-9 #### [facility] CLIA [id number] [address] [place] [address] [place] ALP [Catalytic activity/Vol] 109 U/L Normal 34-123 [facility] Comment on above: Order Comment: Speci men Type: BLOOD SPECIMEN Ordering Facility: [facility] Address: [address] [id number] Performed By: #### 1 9123-9, 50846-1 #### [facility] CLIA [id number] [address] [place] [address] [place] ALT [Catalytic activity/Vol] 9 U/L Normal 7-38 [facility] Comment on above: Order Comment: Speci men Type: BLOOD SPECIMEN Ordering Facility[facility] Address: [address] [place] [address] Performed By: #### 1 9123-9, 85799-7 #### [facility] CLIA [id number] [address] [place] [address] [place] Anion gap [Moles/Vol] 12 mmol/L Normal 8-15 [facility] Comment on above: Order Comment: Speci men Type: BLOOD SPECIMEN Ordering Facility[facility] Address: [address] [place] [address] Performed By: #### 1 9123-9, 18479-7 #### [facility] CLIA [id number] [address] [place] [address] [place] AST [Catalytic activity/Vol] 17 U/L Normal 13-35 [facility] Comment on above: Order Comment: Speci men Type: BLOOD SPECIMEN Ordering Facility[facility] Address: [address] [place] [address] Performed By: #### 1 9123-9, 09621-4 #### [facility] CLIA [id number] [address] [place] [address] [place] Bilirubin [Mass/Vol] 0.3 mg/dL Normal 0.2-1.3 [facility] Comment on above: Order Comment: Speci men Type: BLOOD SPECIMEN Ordering Facility[facility] Address: [address] [place] [address] Performed By: #### 1 9123-9, 04914-3 #### [facility] CLIA [id number] [address] [place] [address] [place] Calcium [Mass/Vol] 10.0 mg/dL Normal 8.5-10.2 [facility] Comment on above: Order Comment: Speci men Type: BLOOD SPECIMEN Ordering Facility[facility] Address: [facility] [place] [id number] Performed By: #### 1 9123-9, 24186-7 #### [facility] CLIA [id number] [address] [place] [address] [place] Chloride [Moles/Vol] 105 mmol/L Normal 98-107 [facility] Comment on above: Order Comment: Speci men Type: BLOOD SPECIMEN Ordering Facility[facility] Address: [facility] [address] [place] [id number] Performed By: #### 1 9123-9, 30543-4 #### [facility] CLIA [id number] [address] [place] [address] [place] CO2 [Moles/Vol] 25 mmol/L Normal 22-30 [facility] Comment on above: Order Comment: Speci men Type: BLOOD SPECIMEN Order[facility] Address: [facility] [place] [id number] Performed By: #### 1 9123-9, #### [facility] CLIA [id number] [address] [place] [address] [place] Creatinine [Mass/Vol] 0.64 mg/dL Normal 0.58-0.96 [facility] Comment on above: Order Comment: Speci men Type: BLOOD SPECIMEN Order[facility] Address: [address] [id number] Performed By: #### 1 9123-9, 20368-6 #### [facility] CLIA [id number] [address] [place] [address] [facility] [place] Creatinine and Glomerular filtration rate.predicted panel (S/P/Bld) 88 mL/min/1.73m??? Normal >=60 [facility] Comment on above: Order Comment: Rola de la torre Type: BLOOD SPECIMEN Order[facility] Facility[facility] Address: [address] [place] [address] Result Comment: Lisha mated Glomerular Filtration Rate (eGFR) is calculated using the 2020 CKD-EPI creatinine equation. This equation utilizes serum creatinine, sex, and age as parameters. The creatinine assay has traceable calibration to isotope dilution-mass spectrometry. Refer to KDIGO guidelines for clinical interpretation. In patients with unstable renal function, e.g. those with acute kidney injury, the eGFR may not accurately reflect actual GFR. Performed By: #### 1 9123-9, 91449-3 #### [facility] [id number] [address] [place] [address] [place] [facility] [place] Glucose [Mass/Vol] 95 mg/dL Normal 74-99 [facility] Comment on above: Order Comment: Rola de la torre Type: BLOOD SPECIMEN [facility] Address: [address] [place] [address] Result Comment: The [place] Diabetes Association (ADA) provides guidance for cutoff values for fasting glucose and random glucose. The ADA defines fasting as no caloric intake for at least 8 hours. Fasting plasma glucose results between 100 to 125 mg/dL indicate increased risk for diabetes (prediabetes). Fasting plasma glucose results greater than or equal to 126 mg/dL meet the criteria for diagnosis of diabetes. In the absence of unequivocal hyperglycemia, results should be confirmed by repeat testing. In a patient with classic symptoms of hyperglycemia or hyperglycemic crisis, random plasma glucose results greater than or equal to 200 mg/dL meet the criteria for diagnosis of diabetes. Reference: Standards of Medical Care in Diabetes 2016, [place] [employer] Association. Diabetes Care. 2016.39(Suppl 1). Performed By: #### 1 9123-9, 40578-5 #### [facility] [id number] [address] [place] [address] [place] Potassium [Moles/Vol] 3.6 mmol/L Low 3.7-5.1 [facility] Comment on above: Order Comment: Speci men Type: BLOOD SPECIMEN Order[facility] Address: [address] [place] [address] Performed By: #### 1 9123-9, 05628-3 #### [facility] CLIA [id number] [address] [place] [address] [place] Protein [Mass/Vol] 7.2 g/dL Normal 6.3-8.0 [facility] Comment on above: Order Comment: Speci men Type: BLOOD SPECIMEN Order[facility] Address: [address] [place] [address] Performed By: #### 1 9123-9, 73481-9 #### [facility] CLIA [id number] [address] [place] [address] [place] Sodium [Moles/Vol] 142 mmol/L Normal 136-144 [facility] Comment on above: Order Comment: Speci men Type: BLOOD SPECIMEN [facility] Address: [address] [place] [address] Performed By: #### 1 9123-9, 90881-3 #### [facility] CLIA [id number] [address] [place] [address] [place] Urea nitrogen [Mass/Vol] 22 mg/dL High 7-21 [facility] Comment on above: Order Comment: Speci men Type: BLOOD SPECIMEN [facility] Address: [address] [place] [address] Performed By: #### 1 9123-9, 09596-8 #### [facility] CLIA [id number] [address] [place] [address] [place] Lipid 1996 panelon 4 Cholesterol [Mass/Vol] 150 mg/dL Normal <200 [facility] Comment on above: Order Comment: Speci men Type: BLOOD SPECIMENOrdering Facility: [facility] Address: [address] [place] [address] Result Comment: <200 mg/dL, Desirable 200-239 mg/dL, Borderline high >239 mg/dL, High Performed By: #### 2 4331-1 ####[facility] [id number] [address] [id number] [address] [place] Cholesterol in HDL [Mass/Vol] 55 mg/dL Normal >39 [facility] Comment on above: Order Comment: Speci men Type: BLOOD SPECIMENOrdering Facility: [facility] Address: [address] [place] [address] Result Comment: 40-5 9 mg/dL, Acceptable >59 mg/dL, High: Negative risk factor for coronary heart disease <40 mg/dL, Low: Positive risk factor for coronary heart disease Performed By: #### 2 4331-1 ####[facility] [id number] [address] [id number] [address] [place] Cholesterol in LDL [Mass/Vol] 79 mg/dL Normal <100 [facility] Comment on above: Order Comment: Speci men Type: BLOOD SPECIMENOrdering Facility: [facility] Address: [address] [place] [address] Result Comment: <100 mg/dL, Optimal 100-129 mg/dL, Near optimal/above optimal 130-159 mg/dL, Borderline high 160-189 mg/dL, High >189 mg/dL, Very high Secondary prevention optimal LDL Cholesterol levels are recommended to be < 70 mg/dL Performed By: #### 2 4331-1 ####[facility] [id number] [id number] [id number] [place] [address] [place] Cholesterol in LDL/Cholesterol in HDL [Mass ratio] 1.44 {ratio} Normal <2.54 [facility] Comment on above: Order Comment: Speci men Type: BLOOD SPECIMENOrdering Facility: [facility] Address: [address] [place] [address] Result Comment: Vince richardson: 1. National Cholesterol Education Program ATP III Guideline At-A-Glance Quick Desk Reference: National Heart, Lung, and Blood [place]. National Institutes of Health. 2001: NIH Publication No. 01-3305. 2. An International Atherosclerosis Society position paper: global recommendations for the management of dyslipidemia: executive summary, Atherosclerosis. 2014: 232(2):410-413. Performed By: #### 2 4331-1 ####[facility] [id number] [address] [id number] [place] [address] [place] Cholesterol in VLDL [Mass/Vol] 16 mg/dL Normal <30 [facility] Comment on above: Order Comment: Speci men Type: BLOOD SPECIMENOrdering Facility: [facility] Address: [address] [place] [address] Performed By: #### 2 4331-1 ####[facility] [id number] [address] [id number] [place] [address] [place] Cholesterol non HDL [Mass/Vol] 95 mg/dL Normal <130 [facility] Comment on above: Order Comment: Speci men Type: BLOOD SPECIMENOrdering Facility: [facility] Address: [address] [place] [address] Result Comment: <130 mg/dL, Optimal 130-159 mg/dL, Near optimal/above optimal 160-189 mg/dL, Borderline high 190-219 mg/dL, High >219 mg/dL, Very high Secondary prevention optimal non HDL Cholesterol levels are recommended to be <100 mg/dL Performed By: #### 2 4331-1 ####[facility] [id number] [address] [id number] [place] [address] [place] Cholesterol.total/Ch olesterol in HDL [Mass ratio] 2.73 {ratio} Normal <5.10 [facility] Comment on above: Order Comment: Speci men Type: BLOOD SPECIMENOrdering Facility: [facility] Address: [address] [place] [address] Performed By: #### 2 4331-1 ####[facility] [id number] [address] [id number] [address] [place] FASTING TIME 12 hrs Normal [facility] Comment on above: Order Comment: Speci men Type: BLOOD SPECIMENOrdering Facility: [facility] Address: [address] [place] [address] Performed By: #### 2 4331-1 ####[facility] [id number] [address] [id number] [place] [address] [place] Triglyceride [Mass/Vol] 78 mg/dL Normal <150 [facility] Comment on above: Order Comment: Speci men Type: BLOOD SPECIMENOrdering Facility: [facility] Address: [address] [place] [address] Result Comment: <150 mg/dL, Normal 150-199 mg/dL, Borderline high 200-499 mg/dL, High >499 mg/dL, Very high Performed By: #### 2 [id number] ####[facility] LABCLIA [id number] [facility] [id number] [place], [place] [id number] [place] [address]ICAM[facility] HOS[facility]ITALLIA [id number] [place] [address] [place] Magnesium SerPl-mCncon 07-15 Magnesium [Mass/Vol] 2.4 mg/dL High 1.7-2.3 [facility] Comment on above: Order Comment: Speci men Type: BLOOD SPECIMEN Ordering Facility: [facility] Address: [address] [place] [address] Performed By: #### 1 [id number], [id number] #### [facility] CLIA [id number] [address] [place] Bacteria identified Cx Nom ( U)Ordered By: Nessa Loaiza on 04-09-2024 Interpretation and review of laboratory results Normal [facility] URINE CULTUREOrdered By: Trang Loaiza on 04-09-2024 Bacteria identified Cx Nom (U) No growth (<1,000 CFU/ml) [facility] Urinalysis complete panel (U )on 04-08-2024 Bacteria LM.HPF (Urine sed) [#/Area] Negative Negative /HPF [facility] Bilirubin Ql (U) Negative Negative [facility] Clarity (Unsp spec) Clear Clear [facility] Color (U) Yellow Yellow [facility] Epithelial cells LM.HPF (Urine sed) [#/Area] None Seen /HPF [facility] Glucose Test strip (U) [Mass/Vol] Negative Negative [facility] Hemoglobin Ql (U) Negative Negative [facility] Hyaline casts (Urine sed) [#/Area] 1-3 /LPF Abnormal 0 /LPF [facility] Interpretation and review of laboratory results Abnormal [facility] Ketones Ql (U) Negative Negative [facility] Leukocyte esterase Test strip Ql (U) Negative Negative [facility] Nitrite Ql (U) Negative Negative [facility] pH (U) 6.5 [pH] NINF - 8.5 [facility] Protein (U) [Mass/Vol] Negative Negative [facility] RBC LM.HPF (Urine sed) [#/Area] 3-5 /HPF Abnormal 0-2 /HPF [facility] Specific gravity (U) [Rel density] 1.016 1.005 - 1.030 [facility] Urobilinogen Ql (U) 0.2 EU/dL 0.2-1.0 EU/dL [facility] WBC LM.HPF (Urine sed) [#/Area] 0-5 /HPF 0-5 /HPF [facility] This test was develo ped and its performance characteristics determined by [facility]'s [facility] [place] ([facility]). It has not been cleared or approved by the FDA. -[facility] is regulated under CLIA as qualified to perform high-complexity testing. This test is used for clinical purposes. It should not be regarded as investigational or for research. [facility] XR FEMUR RIGHT 2+ VIEWS (STA NDARD)on 02-19-2024 XR FEMUR RIGHT 2+ VIEWS (STANDARD) EXAMINATION: XR FEMUR RIGHT 2+ VIEWS (STANDARD) HISTORY: ORDERING SYSTEM PROVIDED HISTORY: Follow-up exam, TECHNOLOGIST PROVIDED HISTORY: Injury/Trauma Reason for exam: P/O ORIF right femur 08/22/23 Cancer History: U Surgery, RadiationHistory: U Encounter Type: Subsequent/Follow-up Mechanism of injury: fall ORDERING SYSTEM PROVIDED DIAGNOSIS CODES: Z09 Follow-up exam COMPARISON: 11/20/2023. TECHNIQUE: Two views of the right femur. FINDINGS: Prior right total hip replacement. Nondisplaced periprosthetic fracture at the femoral stem with underlying plate screw and cable wire fixation. Hardware appears intact. Interval increased callous formation and periosteal reaction. Small residual fracture lucency remains visible. No new additional fractures. Probable calcified fibroids in the pelvis, measuring to 2.6 cm. IMPRESSION: Prior right total hip replacement with nondisplaced periprosthetic fracture of the femoral stem. Periprosthetic fracture fixation hardware is intact. Interval increased callus formation compared to 11/20/2023. ST/senthil Workstation ID: [id number] Dictated by: SPENCER ARREAGA on ThuFeb 23, 2024 5:18:27 PM EDT Transcribed by: MARGO STINSON on ThuFeb 23, 2024 5:44:56 PM EDT Finalized by: SPENCER ARREAGA on ThuFeb 23, 2024 9:40:24 PM EDT [facility] Comment on above: Order Comment: Injur y/Trauma or Illness?:Injury/Trauma How long have you had these symptoms (acute/chronic)?:Acute Reason for exam?:P/O ORIF right femur 08/22/23 History of cancer?:U Surgeries, chemotherapy, or radiation?:U Type of Exam?:Subsequent/Follow-up Mechanism of injury?:fall XR FEMUR RIGHT 2+ VIEWS (STA NDARD)on 11-20-2023 XR FEMUR RIGHT 2+ VIEWS (STANDARD) EXAMINATION: XR FEMUR RIGHT 2+ VIEWS (STANDARD) HISTORY: ORDERING SYSTEM PROVIDED HISTORY: Follow-up exam, TECHNOLOGIST PROVIDED HISTORY: Illness/Other Reason for Exam: P/o 12 week follow up right femur reduction Cancer History: U Surgery, Radiation History: U Encounter Type: Subsequent/Follow-up Additional Signs and Symptoms: Fall ORDERING SYSTEM PROVIDED DIAGNOSIS CODES: Z09 Follow-up exam COMPARISON: Radiographs dating back to 08/21/2023. TECHNIQUE: Two views of the right femur. FINDINGS: Prior right total hip replacement. Nondisplaced mid femoral shaft fracture with intact plate and screw and cable wire fixation. Fracture site demonstrates increased periosteal reaction and callus formation. Fracture lucencies remain visible. Partial visualization of calcified fibroids in the uterus. IMPRESSION: Nondisplaced femoral shaft fracture with intact fixation hardware. Interval increased healing changes compared to 10/09/2023. ST/lab Workstation ID: [id number] Dictated by: SPENCER ARREAGA on ThuNov 24, 2023 9:24:58 AM EDT Transcribed by: KAI ANTONY on ThuNov 24, 2023 9:27:01 AM EDT Finalized by: SPENCER ARREAGA on ThuNov 24, 2023 5:35:11 PM EDT [facility] Comment on above: Order Comment: Injur y/Trauma or Illness?:Illness/Other How long have you had these symptoms (acute/chronic)?:Unknown Reason for exam?:p/o 12 week follow up right femur reduction History of cancer?:U Surgeries, chemotherapy, or radiation?:U Type of Exam?:Subsequent/Follow-up Additional signs and symptoms?:fall XR FEMUR RIGHT 2+ VIEWS (STA NDARD)on 10-09-2023 XR FEMUR RIGHT 2+ VIEWS (STANDARD) EXAMINATION: XR FEMUR RIGHT 2+ VIEWS (STANDARD) HISTORY: ORDERING SYSTEM PROVIDED HISTORY: Follow-up exam, TECHNOLOGIST PROVIDED HISTORY: Injury/Trauma Reason for exam: ORIF right femur 08/22/23 Cancer History: U Surgery, RadiationHistory: U Encounter Type: Subsequent/Follow-up Mechanism of injury: fall ORDERING SYSTEM PROVIDED DIAGNOSIS CODES: Z09 Follow-up exam Injury/Trauma or Illness?:Injury/Trauma How long have you had these symptoms (acute/chronic)?:AcuteFoll ow-up exam COMPARISON: Femur study from 09/11/2023 TECHNIQUE: AP and lateral views of the right femur are provided for interpretation. FINDINGS: The comminuted fracture of the right femur is still evident on the current study. ORIF with plate and screw fixation as well as cerclage wires is intact. The fracture is well aligned postsurgical repair. A right total hip arthroplasty is also present and grossly intact. No new osseous lesion, fracture or subluxation is detected. The visualized osseous structures are osteopenic. There are heavily calcified fibroids in the pelvis. Soft tissues are unremarkable. IMPRESSION: No significant interval change. Intact right total hip arthroplasty and ORIF of the mid right femur. The comminuted femoral fracture is well aligned postsurgical repair Workstation ID: [id number] Dictated by: MARYCARMEN CRUZ on [facility] [place] Oct 10, 2023 11:40:20 AM EST Transcribed by: MARYCARMEN CRUZ on [facility] [place] Oct 10, 2023 11:40:20 AM EST Finalized by: MARYCARMEN CRUZ on [facility] [place] Oct 10, 2023 11:40:20 AM EST Normal [facility] Comment on above: Order Comment: Injur y/Trauma or Illness?:Injury/Trauma How long have you had these symptoms (acute/chronic)?:Acute Reason for exam?:ORIF right femur 08/22/23 History of cancer?:U Surgeries, chemotherapy, or radiation?:U Type of Exam?:Subsequent/Follow-up Mechanism of injury?:fall COVID-19 virus antigen assay Ordered By: Giovanni Martinez on 09-21-2023 SARS-CoV-2 (COVID-19) Ag IA.rapid Ql (Resp) [facility] Absolute lymphocyte countOrd ered By: Giovanni Martinez on 09-19-2023 Lymphocytes Auto (Unsp spec) [#/Vol] 0.97 10*3/uL 0.83-4.51 [facility] Automated lymphocyte count a s percentage of total leukocytesOrdered By: Giovanni Martinez on 09-19-2023 Lymphocytes/100 WBC Auto (Unsp spec) 14.9 % 19-41 [facility] Basophil percentageOrdered B y: Giovanni Martinez on 09-19-2023 Basophils/100 WBC (Bld) 1.7 % 0-1 [facility] Chloride [Moles/Vol] 111 mmol/L 98-107 [facility] Eosinophils/100 WBC (Bld) 3.7 % 0-5 [facility] Glucose [Mass/Vol] 133 mg/dL 74-106 [facility] Comment on above: Fasting Glucose resu lt greater than or equal to 126 mg/dL suggests DIABETES MELLITUS per A.D.A. criteria. Hemoglobin (Bld) [Mass/Vol] 11.7 g/dL 12.0-15.0 [facility] Monocytes/100 WBC (Bld) 7.8 % 0-10 [facility] Neutrophils (Bld) [#/Vol] 4.6 10*3/uL 2.0-7.7 [facility] Neutrophils/100 WBC (Bld) 71.1 % 47-70 [facility] Potassium [Moles/Vol] 3.7 mmol/L 3.5-5.1 [facility] Sodium [Moles/Vol] 141 mmol/L 136-145 [facility] WBC (Bld) [#/Vol] 6.5 10*3/uL 4.4-11.0 [facility] Determination of erythrocyte mean corpuscular volume (MCV)Ordered By: Giovanni Martinez on 09-19-2023 MCV (RBC) [Entitic vol] 103.2 fL 81-99 [facility] Erythrocyte distribution wid th ratioOrdered By: Giovanni Martinez on 09-19-2023 Erythrocyte distribution width (RBC) [Ratio] 16.1 % 11.6-14.6 [facility] Erythrocyte distribution wid th standard deviationOrdered By: Giovanni Martinez on 09-19-2023 Erythrocyte distribution width (RBC) [Entitic vol] 62.7 fL 35.1-43.9 [facility] Hematocrit Auto (Bld) [Volum e fraction]Ordered By: Giovanni Martinez on 09-19-2023 Hematocrit (Bld) [Volume fraction] 38.7 % 37-47 [facility] Immature granulocytes/100 WB C Auto (Bld)Ordered By: Giovanni Martinez on 09-19-2023 Immature granulocytes/100 WBC (Bld) 0.800 % 0.0-0.9 [facility] Comment on above: IG% - Immature Granu locytes (promyelocytes, myelocytes and metamyelocytes) > 1% indicates that a LEFT SHIFT is Present. Laboratory - Chemistry and C hemistry - challengeOrdered By: Giovanni Martinez on 09-19-2023 CO2 [Moles/Vol] 26.0 mmol/L 21.0-32.0 [facility] Urea nitrogen/Creatinine [Mass ratio] 36.1 mg/mg 10-20 [facility] Laboratory - Hematology and Cell countsOrdered By: Giovanni Martinez on 09-19-2023 MCH (RBC) [Entitic mass] 31.2 pg 27.0-32.0 [facility] MCHC (RBC) [Mass/Vol] 30.2 g/dL 32-36 [facility] Nucleated RBC/100 WBC (Bld) [Ratio] 0 % 0-5 [facility] Platelet mean volume (Bld) [Entitic vol] 8.8 fL 6.2-12.0 [facility] Platelets (Bld) [#/Vol] 311 10*3/uL 150-450 [facility] No Panel InformationOrdered By: Giovanni Martinez on 09-19-2023 Estimated Creatinine Clearance Calc 43.62 ml/min [facility] Estimated GFR (MDRD) Amer 121 mL/min >60 [facility] Comment on above: GFR Calc Estimated GFR (MDRD) Non-Af Amer 100 mL/min >60 [facility] Comment on above: Non- GFR Calc RBC Auto (Bld) [#/Vol]Ordere d By: Giovanni Martinez on 09-19-2023 RBC (Bld) [#/Vol] 3.75 10*6/uL 4.2-5.4 [facility] Serum or plasma calcium valorie urement (mass/volume)Ordered By: Giovanni Martinez on 09-19-2023 Calcium [Mass/Vol] 9.0 mg/dL 8.5-10.1 [facility] Serum or plasma creatinine m easurement (mass/volume)Ordered By: Giovanni Martinez on 09-19-2023 Creatinine [Mass/Vol] 0.61 mg/dL 0.55-1.02 [facility] Comment on above: The validity of the calculated GFR & GFRAA in patients over 70 years has not been determined. Clinical correlation is essential. Serum or plasma urea nitroge n measurement (mass/volume)Ordered By: Giovanni Martinez on 09-19-2023 Urea nitrogen [Mass/Vol] 22 mg/dL 7-18 [facility] Thin prep Papanicolaou smear with manual screeningOrdered By: Giovanni Martinez on 09-19-2023 Thin prep Papanicolaou smear with manual screening 4 5-15 [facility] XR FEMUR RIGHT 2+ VIEWS (STA NDARD)on 09-11-2023 XR FEMUR RIGHT 2+ VIEWS (STANDARD) EXAMINATION: XR FEMUR RIGHT 2+ VIEWS (STANDARD) 09/11/2023 2:47 pm HISTORY: ORDERING SYSTEM PROVIDED HISTORY: Fracture, TECHNOLOGIST PROVIDED HISTORY: Illness/Other Reason for exam: 3 week follow up right femur fracture distal Cancer History: U Surgery, RadiationHistory: U Encounter Type: Subsequent/Follow-up Additional signs and symptoms: fall ORDERING SYSTEM PROVIDED DIAGNOSIS CODES: T14.8XXA Fracture COMPARISON: 08/21/2023 FINDINGS: BONES: Interval open reduction internal fixation of a right femoral mid diaphyseal fracture utilizing a lateral plate multiple screws and cerclage wires. Stable total hip arthroplasty SOFT TISSUES: No visible soft tissue swelling or radiopaque foreign body. EFFUSION: None visible. OTHER: Pelvic calcifications likely representing uterine fibroids IMPRESSION: Open reduction internal fixation of a mid right femur fracture Workstation ID: [id number] Dictated by: HEAVEN PANDYA on ThuSep 14, 2023 8:24:01 AM EST Transcribed by: HEAVEN PANDYA on ThuSep 14, 2023 8:24:01 AM EST Finalized by: HEAVEN PANDYA on ThuSep 14, 2023 8:24:01 AM EST Normal [facility] Comment on above: Order Comment: Injur y/Trauma or Illness?:Illness/Other How long have you had these symptoms (acute/chronic)?:Acute Reason for exam?:3 week follow up right femur fracture distal History of cancer?:U Surgeries, chemotherapy, or radiation?:U Type of Exam?:Subsequent/Follow-up Additional signs and symptoms?:fall Stool gastrointestinal hemog lobin detection by immunologic methodOrdered By: Giovanni Martinez on 09-06-2023 Lower GI hemoglobin IA Ql (Stl) [facility] Basophil percentageOrdered B y: Giovanni Martinez on 09-04-2023 Cholesterol [Mass/Vol] 143 mg/dL <200 [facility] Comment on above: <200 mg/dL Desirable 200-240 mg/dL Borderline >240 mg/dL High Risk Triglyceride [Mass/Vol] 63 mg/dL <199 [facility] Comment on above: The drugs N-Acetylcy steine and Metamizole may falsely depress this assay.Serum Triglycerides Reference Interval Normal <150 mg/dL Borderline high 150 - 199 mg/dL High 200 - 499 mg/dL Very High > or = 500 mg/dL Laboratory - Chemistry and C hemistry - challengeOrdered By: Giovanni Martinez on 09-04-2023 Cholesterol in HDL (Body fld) [Mass/Vol] 42 mg/dL >40 [facility] Comment on above: The drugs N-Acetylcy steine and Metamizole may falsely depress this assay. Reference Range HDL <40 mg/dL Low HDL Cholesterol HDL >or= 60 mg/dL High HDL Cholesterol Cholesterol in LDL (Body fld) [Moles/Vol] 88 mg/dL 0-130 [facility] Cholesterol in VLDL Calc [Moles/Vol] 13 mg/dL 5-40 [facility] Magnesium [Mass/Vol] 2.5 mg/dL 1.6-2.6 [facility] Serum or plasma calcitriol m easurement (mass/volume)Ordered By: Giovanni Martinez on 09-04-2023 1,25-dihydroxyvitami n D3 [Mass/Vol] 45.1 pg/mL 24.8-81.5 [facility] Comment on above: Performed at: [address] [id number] Director: Elzbieta Almeida MD, Phone: [phone] Basic metabolic 2000 panelon 08-26-2023 Anion gap [Moles/Vol] 8 mmol/L Low 10 - 20 mmol/L [facility] Calcium [Mass/Vol] 7.9 mg/dL Low 8.4 - 10. 2 mg/dL [facility] Chloride [Moles/Vol] 110 mmol/L High 98 - 10 8 mmol/L [facility] Creatinine [Mass/Vol] 0.46 mg/dL Low 0.60 - 1.20 mg/dL [facility] GFR/1.73 sq M.predicted CKD-EPI (S/P/Bld) [Vol rate/Area] 96 - PINF [facility] Comment on above: Estimated GFR was ca lculated using the 2020 CKD-EPI creatinine equation. Glucose [Mass/Vol] 119 mg/dL High 65 - 99 mg/dL [facility] HCO3 [Moles/Vol] 26 mmol/L 21 - 32 mmol/L [facility] Interpretation and review of laboratory results Abnormal [facility] Potassium [Moles/Vol] 4.0 mmol/L 3.5 - 5.1 mmol/L [facility] Sodium [Moles/Vol] 140 mmol/L 135 - 145 mmol/L [facility] Urea nitrogen [Mass/Vol] 15 mg/dL 8 - 25 mg/dL [facility] Urea nitrogen/Creatinine [Mass ratio] 32.6 mg/mg High 10.0 - 20.0 [facility] has implemented the eGFR calculation approach that does not have a coefficient for race that conforms to the NKF-ASN Task Force Recommendations. [facility] Bacteria identified Aer cx N om (Unsp spec)Ordered By: Clare Peters on 08-25-2023 [facility] Basic metabolic 1999 panelon 08-25-2023 Anion gap [Moles/Vol] 6 mmol/L Low 10 - 20 mmol/L [facility] Calcium [Mass/Vol] 7.8 mg/dL Low 8.4 - 10. 2 mg/dL [facility] Chloride [Moles/Vol] 107 mmol/L 98 - 10 8 mmol/L [facility] Creatinine [Mass/Vol] 0.40 mg/dL Low 0.60 - 1.20 mg/dL [facility] GFR/1.73 sq M.predicted CKD-EPI (S/P/Bld) [Vol rate/Area] 100 - PINF [facility] Comment on above: Estimated GFR was ca lculated using the 2020 CKD-EPI creatinine equation. Glucose [Mass/Vol] 125 mg/dL High 65 - 99 mg/dL [facility] HCO3 [Moles/Vol] 29 mmol/L 21 - 32 mmol/L [facility] Interpretation and review of laboratory results Abnormal [facility] Potassium [Moles/Vol] 3.2 mmol/L Low 3.5 - 5.1 mmol/L [facility] Sodium [Moles/Vol] 139 mmol/L 135 - 145 mmol/L [facility] Urea nitrogen [Mass/Vol] 13 mg/dL 8 - 25 mg/dL [facility] Urea nitrogen/Creatinine [Mass ratio] 32.5 mg/mg High 10.0 - 20.0 [facility] has implemented the eGFR calculation approach that does not have a coefficient for race that conforms to the NKF-ASN Task Force Recommendations. [facility] CBC panel Auto (Bld)on 08-25 Erythrocyte distribution width (RBC) [Entitic vol] 13.5 % 11.6 - 14.8 % [facility] Hematocrit (Bld) [Volume fraction] 25.3 % Low 36.0 - 46.0 % [facility] Hemoglobin (Bld) [Mass/Vol] 8.4 g/dL Low 12.0 - 16.0 g/dL [facility] Interpretation and review of laboratory results Abnormal [facility] MCH (RBC) [Entitic mass] 32.1 pg 26.0 - 34.0 pg [facility] MCHC (RBC) [Mass/Vol] 33.2 g/dL 31.0 - 37.0 g/dL [facility] MCV (RBC) [Entitic vol] 96.6 fL 80.0 - 100.0 fL [facility] Nucleated RBC (Bld) [#/Vol] 0.00 10*3/uL [facility] Nucleated RBC/100 WBC (Bld) [Ratio] 0.0 % [facility] Platelet mean volume (Bld) [Entitic vol] 10.0 fL 9.4 - 12.4 fL [facility] Platelets (Bld) [#/Vol] 162 10*3/uL [facility] RBC (Bld) [#/Vol] 2.62 10*6/uL Low [facility]alth WBC (Bld) [#/Vol] 11.76 10*3/uL High [facility] Urine Aerobic CultureOrdered By: Clare Peters on 08-25-2023 Bacteria identified Aer cx Nom (Unsp spec) No Growth (<1,000 CFU/mL) [facility] Basic metabolic 2000 panelOr dered By: Nessa Juarez on 08-24-2023 Anion gap [Moles/Vol] 8 mmol/L Low 10 - 20 mmol/L [facility] Calcium [Mass/Vol] 7.6 mg/dL Low 8.4 - 10. 2 mg/dL [facility] Chloride [Moles/Vol] 111 mmol/L High 98 - 10 8 mmol/L [facility] Creatinine [Mass/Vol] 0.43 mg/dL Low 0.60 - 1.20 mg/dL [facility] GFR/1.73 sq M.predicted CKD-EPI (S/P/Bld) [Vol rate/Area] 98 - PINF [facility] Comment on above: Estimated GFR was ca lculated using the 2020 CKD-EPI creatinine equation. Glucose [Mass/Vol] 121 mg/dL High 65 - 99 mg/dL [facility] HCO3 [Moles/Vol] 27 mmol/L 21 - 32 mmol/L [facility] Interpretation and review of laboratory results Abnormal [facility] Potassium [Moles/Vol] 3.6 mmol/L 3.5 - 5.1 mmol/L [facility] Sodium [Moles/Vol] 142 mmol/L 135 - 145 mmol/L [facility] Urea nitrogen [Mass/Vol] 11 mg/dL 8 - 25 mg/dL [facility] Urea nitrogen/Creatinine [Mass ratio] 25.6 mg/mg High 10.0 - 20.0 [facility] has implemented the eGFR calculation approach that does not have a coefficient for race that conforms to the NKF-ASN Task Force Recommendations. [facility] CBC panel Auto (Bld)on 08-24 Erythrocyte distribution width (RBC) [Entitic vol] 13.9 % 11.6 - 14.8 % [facility] Hematocrit (Bld) [Volume fraction] 24.6 % Low 36.0 - 46.0 % [facility] Hemoglobin (Bld) [Mass/Vol] 8.0 g/dL Low 12.0 - 16.0 g/dL [facility] Interpretation and review of laboratory results Abnormal [facility] MCH (RBC) [Entitic mass] 31.4 pg 26.0 - 34.0 pg [facility] MCHC (RBC) [Mass/Vol] 32.5 g/dL 31.0 - 37.0 g/dL [facility] MCV (RBC) [Entitic vol] 96.5 fL 80.0 - 100.0 fL [facility] Nucleated RBC (Bld) [#/Vol] 0.00 10*3/uL [facility] Nucleated RBC/100 WBC (Bld) [Ratio] 0.0 % [facility] Platelet mean volume (Bld) [Entitic vol] 9.8 fL 9.4 - 12.4 fL [facility] Platelets (Bld) [#/Vol] 138 10*3/uL Low [facility] RBC (Bld) [#/Vol] 2.55 10*6/uL Low [facility] ealth WBC (Bld) [#/Vol] 11.50 10*3/uL High [facility] Basic metabolic 2000 panelon 08-23-2023 Anion gap [Moles/Vol] 7 mmol/L Low 10 - 20 mmol/L [facility] Calcium [Mass/Vol] 7.6 mg/dL Low 8.4 - 10. 2 mg/dL [facility] Chloride [Moles/Vol] 106 mmol/L 98 - 10 8 mmol/L [facility] Creatinine [Mass/Vol] 0.80 mg/dL 0.60 - 1.20 mg/dL [facility] GFR/1.73 sq M.predicted CKD-EPI (S/P/Bld) [Vol rate/Area] 74 - PINF [facility] Comment on above: Estimated GFR was ca lculated using the 2020 CKD-EPI creatinine equation. Glucose [Mass/Vol] 130 mg/dL High 65 - 99 mg/dL [facility] HCO3 [Moles/Vol] 29 mmol/L 21 - 32 mmol/L [facility] Interpretation and review of laboratory results Abnormal [facility] Potassium [Moles/Vol] 3.3 mmol/L Low 3.5 - 5.1 mmol/L [facility] Sodium [Moles/Vol] 139 mmol/L 135 - 145 mmol/L [facility] Urea nitrogen [Mass/Vol] 26 mg/dL High 8 - 25 mg/dL [facility] Urea nitrogen/Creatinine [Mass ratio] 32.5 mg/mg High 10.0 - 20.0 [facility] has implemented the eGFR calculation approach that does not have a coefficient for race that conforms to the NKF-ASN Task Force Recommendations. [facility] CBC panel Auto (Bld)on 08-23 Erythrocyte distribution width (RBC) [Entitic vol] 12.9 % 11.6 - 14.8 % [facility] Hematocrit (Bld) [Volume fraction] 22.8 % Low 36.0 - 46.0 % [facility] Hemoglobin (Bld) [Mass/Vol] 7.4 g/dL Low 12.0 - 16.0 g/dL [facility] Interpretation and review of laboratory results Abnormal [facility] MCH (RBC) [Entitic mass] 32.6 pg 26.0 - 34.0 pg [facility] MCHC (RBC) [Mass/Vol] 32.5 g/dL 31.0 - 37.0 g/dL [facility] MCV (RBC) [Entitic vol] 100.4 fL High 80.0 - 100.0 fL [facility] Nucleated RBC (Bld) [#/Vol] 0.00 10*3/uL [facility] Nucleated RBC/100 WBC (Bld) [Ratio] 0.0 % [facility] Platelet mean volume (Bld) [Entitic vol] 9.2 fL Low 9.4 - 12.4 fL [facility] Platelets (Bld) [#/Vol] 228 10*3/uL [facility] RBC (Bld) [#/Vol] 2.27 10*6/uL Low [facility] WBC (Bld) [#/Vol] 13.49 10*3/uL High [facility] Hemoglobin and Hematocrit pa miguel (Bld)on 08-23-2023 Hematocrit (Bld) [Volume fraction] 25.2 % Low 36.0 - 46.0 % [facility] Hemoglobin (Bld) [Mass/Vol] 8.2 g/dL Low 12.0 - 16.0 g/dL [facility] Interpretation and review of laboratory results Abnormal [facility] Magnesium Levelon 08-23-2023 Magnesium [Mass/Vol] 2.5 mg/dL High 1.6 - 2 .4 mg/dL [facility] Magnesium [Mass/Vol]on 08-23 Interpretation and review of laboratory results Abnormal [facility] Prepare RBC: 1 Unitson 08-23 ABO and Rh group Nom (Bld) 5100 [facility] ABO and Rh group Nom (Bld) Blood group O Rh(D) positive [facility] Cross Match Compatible [facility] Product Code [id number] [facility] Product ID Red Blood Cells [facility] Status Info Transfused [facility] Unit Number [id number] [facility] Vitamin D, Total, 25-OHon 25-hydroxyvitamin D [Mass/Vol] 43 ng/mL 30 - 100 ng/mL [facility] Comment on above: Vitamin D status: Deficiency: <20 ng/mL Insufficiency: 20-30 ng/mL Sufficiency: 30-100 ng/mL Toxicity: >100 ng/mL Please note that Fluorescein which is used in angiography has been shown to falsely elevate the results of Vitamin D with our current assay. Evidence suggests that patients undergoing fluorescein dye angiography can retain small amounts of fluorescein in the body for up to 48 to 72 hours post-treatment. In the cases of patients with renal insufficiency, retention could be much longer. Samples should be resubmitted post fluorescein clearance to ensure there is no interference with the Vitamin D test result. Interpretation and review of laboratory results Normal [facility] Assay performed guicho Jorgensen's chemiluminescence methodology. [facility] Basic metabolic 2000 panelon 08-22-2023 Anion gap [Moles/Vol] 12 mmol/L 10 - 20 mmol/L [facility] Calcium [Mass/Vol] 9.0 mg/dL 8.4 - 10. 2 mg/dL [facility] Chloride [Moles/Vol] 107 mmol/L 98 - 10 8 mmol/L [facility] Creatinine [Mass/Vol] 0.72 mg/dL 0.60 - 1.20 mg/dL [facility] GFR/1.73 sq M.predicted CKD-EPI (S/P/Bld) [Vol rate/Area] 84 - PINF [facility] Comment on above: Estimated GFR was ca lculated using the 2020 CKD-EPI creatinine equation. Glucose [Mass/Vol] 147 mg/dL High 65 - 99 mg/dL [facility] HCO3 [Moles/Vol] 25 mmol/L 21 - 32 mmol/L [facility] Interpretation and review of laboratory results Abnormal [facility] Potassium [Moles/Vol] 3.6 mmol/L 3.5 - 5.1 mmol/L [facility] Sodium [Moles/Vol] 140 mmol/L 135 - 145 mmol/L [facility] Urea nitrogen [Mass/Vol] 23 mg/dL 8 - 25 mg/dL [facility] Urea nitrogen/Creatinine [Mass ratio] 31.9 mg/mg High 10.0 - 20.0 [facility] Laborator y Services has implemented the eGFR calculation approach that does not have a coefficient for race that conforms to the NKF-ASN Task Force Recommendations. [facility] CBC panel Auto (Bld)on 08-22 Erythrocyte distribution width (RBC) [Entitic vol] 12.5 % 11.6 - 14.8 % [facility] Hematocrit (Bld) [Volume fraction] 36.0 % 36.0 - 46.0 % [facility] Hemoglobin (Bld) [Mass/Vol] 11.8 g/dL Low 12.0 - 16.0 g/dL [facility] Interpretation and review of laboratory results Abnormal [facility] MCH (RBC) [Entitic mass] 32.2 pg 26.0 - 34.0 pg [facility] MCHC (RBC) [Mass/Vol] 32.8 g/dL 31.0 - 37.0 g/dL [facility] MCV (RBC) [Entitic vol] 98.1 fL 80.0 - 100.0 fL [facility] Nucleated RBC (Bld) [#/Vol] 0.00 10*3/uL [facility] Nucleated RBC/100 WBC (Bld) [Ratio] 0.0 % [facility] Platelet mean volume (Bld) [Entitic vol] 9.5 fL 9.4 - 12.4 fL [facility] Platelets (Bld) [#/Vol] 276 10*3/uL [facility] RBC (Bld) [#/Vol] 3.67 10*6/uL Low [facility] ealth WBC (Bld) [#/Vol] 15.30 10*3/uL [facility] Procedural Sedationon 2023 Joyce Espinosa MD 08/22/2023 11:31 AM Procedural Sedation Date/Time: 08/22/2023 11:28 AM Performed [...] the procedure well with no immediate complications [facility] UrinalysisOrdered By: Oumou Fritz on 08-22-2023 Bacteria Auto Ql (U) Rare Abnormal None Se en /hpf [facility] Bilirubin Ql (U) Negative Negative [facility] th Clarity Refractometry automated (U) Clear Clear [facility] Color (U) Yellow Colorless, Yellow [facility] Glucose Auto test strip (U) [Mass/Vol] Negative Negative mg/dL [facility] Hemoglobin Auto test strip Ql (U) Small Abnormal Negative [facility] Interpretation and review of laboratory results Abnormal [facility] Ketones (U) [Mass/Vol] Trace Abnormal Negative mg/dL [facility] Leukocyte esterase Auto test strip Ql (U) Trace Abnormal Negative [facility] Mucus Auto (Urine sed) [#/Area] Rare None Seen, Rare /lpf [facility] Nitrite Auto test strip Ql (U) Negative Negative [facility] pH (U) 5.5 [pH] 5.0 - 7.0 [facility] Protein (U) [Mass/Vol] Negative Negative mg/dL [facility] RBC Auto (Urine sed) [#/Area] 3 [facility] Specific gravity (U) [Rel density] 1.033 High 1.005 - 1.025 [facility] Urobilinogen (U) [Mass/Vol] mg/dL NINF - 2.0 mg/dL [facility] WBC Auto (Urine sed) [#/Area] 11 High [facility] Microscopic examinat ion is performed on all urinalysis samples and only positive findings are reported. The test for blood on the chemical analytic portion of urinalysis may also be positive due to hemoglobinuria and myoglobinuria and if red blood cells are present they are quantified by microscopic examination. [facility] XR Femur - right 2 Viewson 0 08-22-2023 Satisfactory intraoperative appearance from open reduction internal fixation of a mildly comminuted oblique fracture of the mid femoral diaphysis. Workstation ID: [id number] [employer] RIS EXAMINATION: XR OR FEMUR RIGHT 2+ VIEWS 08/22/2023. HISTORY: ORDERING SYSTEM PROVIDED HISTORY: Right femur ORIF, TECHNOLOGIST PROVIDED HISTORY: Injury/Trauma Reason for exam: ORIF Right femur. Fracture Encounter Type: Initial Mechanism of injury: Fall Fluoro dose in mGy: 1.19 ORDERING SYSTEM PROVIDED DIAGNOSIS CODES: S72.331A Closed displaced oblique fracture of shaft of right femur, initial encounter ([facility]) COMPARISON: Radiographs right femur 08/21/2023. TECHNIQUE: Fluoro Dose Ka,r mGy: Fluoro dose in Ka,r mGy: 1.19 4 intraoperative fluoroscopic spot images of the right femur were obtained. FINDINGS: There has been placement of a lateral plate and multiple cortical screws across the proximal to mid femoral diaphysis. There has also been placement of cerclage wires surrounding the proximal femoral diaphysis. This hardware fixes a mildly comminuted oblique fracture of the mid femoral diaphysis in near anatomic alignment. An immediate interpretation of this study was not requested at the time of surgery. [employer] RIS [place], Roni clemente MD - 08/22/2023 EXAMINATION: XR OR FEMUR RIGHT 2+ VIEWS 08/22/2023. HISTORY: ORDERING SYSTEM PROVIDED HISTORY: Right femur ORIF, TECHNOLOGIST PROVIDED HISTORY: Injury/Trauma Reason for exam: ORIF Right femur. Fracture Encounter Type: Initial Mechanism of injury: Fall Fluoro dose in mGy: 1.19 ORDERING SYSTEM PROVIDED DIAGNOSIS CODES: S72.331A Closed displaced oblique fracture of shaft of right femur, initial encounter ([facility]) COMPARISON: Radiographs right femur 08/21/2023. TECHNIQUE: Fluoro Dose Ka,r mGy: Fluoro dose in Ka,r mGy: 1.19 4 intraoperative fluoroscopic spot images of the right femur were obtained. FINDINGS: There has been placement of a lateral plate and multiple cortical screws across the proximal to mid femoral diaphysis. There has also been placement of cerclage wires surrounding the proximal femoral diaphysis. This hardware fixes a mildly comminuted oblique fracture of the mid femoral diaphysis in near anatomic alignment. An immediate interpretation of this study was not requested at the time of surgery. IMPRESSION: Satisfactory intraoperative appearance from open reduction internal fixation of a mildly comminuted oblique fracture of the mid femoral diaphysis. Workstation ID: [id number] [facility] Radiology Study observation (narrative) [facility] XR Femur - right 2 ViewsOrde red By: Roni Joshi on 08-22-2023 [facility] Work Phone: XR OR FEMUR RIGHT 2+ VIEWSon 08-22-2023 XR OR FEMUR RIGHT 2+ VIEWS EXAMINATION: XR OR FEMUR RIGHT 2+ VIEWS 08/22/2023. HISTORY: ORDERING SYSTEM PROVIDED HISTORY: Right femur ORIF, TECHNOLOGIST PROVIDED HISTORY: Injury/Trauma Reason for exam: ORIF Right femur. Fracture Encounter Type: Initial Mechanism of injury: Fall Fluoro dose in mGy: 1.19 ORDERING SYSTEM PROVIDED DIAGNOSIS CODES: S72.331A Closed displaced oblique fracture of shaft of right femur, initial encounter ([facility]) COMPARISON: Radiographs right femur 08/21/2023. TECHNIQUE: Fluoro Dose Ka,r mGy: Fluoro dose in Ka,r mGy: 1.19 4 intraoperative fluoroscopic spot images of the right femur were obtained. FINDINGS: There has been placement of a lateral plate and multiple cortical screws across the proximal to mid femoral diaphysis. There has also been placement of cerclage wires surrounding the proximal femoral diaphysis. This hardware fixes a mildly comminuted oblique fracture of the mid femoral diaphysis in near anatomic alignment. An immediate interpretation of this study was not requested at the time of surgery. IMPRESSION: Satisfactory intraoperative appearance from open reduction internal fixation of a mildly comminuted oblique fracture of the mid femoral diaphysis. Workstation ID: [id number] Dictated by: RONI JOSHI on [facility] [place] Aug 22, 2023 2:55:29 PM EST Transcribed by: RONI JOSHI on [facility] [place] Aug 22, 2023 2:55:29 PM EST Finalized by: RONI JOSHI on [facility] [place] Aug 22, 2023 2:55:29 PM EST [facility] Comment on above: Order Comment: Injur y/Trauma or Illness?:Injury/Trauma How long have you had these symptoms (acute/chronic)?:Acute Reason for exam?:ORIF Right femur. Fracture Type of Exam?:Initial Mechanism of injury?:Fall Fluoro time in minutes:0.23 0.23 minutes or 14 seconds Fluoro dose in mGy?:1.19 ABORH Verificationon 024 ABO and Rh group Nom (Bld) Blood group O Rh(D) positive [facility] ABO and Rh group Nom (Bld) ABO/Rh Verification [facility] Comment on above: Patient's ABO/Rh is verified. [facility] Blood type and Indirect anti body screen panel (Bld)on 08-21-2023 ABO and Rh group Nom (Bld) Blood group O Rh(D) positive [facility] Blood group antibody screen Ql Negative [facility] Specimen Expires 08/24/2023 23:59 EST [facility] CT CERVICAL SPINE WITHOUT CO NTRASTon 08-21-2023 CT CERVICAL SPINE WITHOUT CONTRAST EXAM: CT CERVICAL SPINE WITHOUT CONTRAST08/21/2023 3:06 pm TECHNIQUE: Axial CT images were obtained through the cervical spine. Sagittal and coronal reformatted images were also obtained. Dose reduction techniques were achieved by using automated exposure control and/or adjustment of mA and/or kV according to patient size and/or use of iterative reconstruction technique. HISTORY: ORDERING SYSTEM PROVIDED HISTORY: Fall, TECHNOLOGIST PROVIDED HISTORY: Injury/Trauma Reason for exam: PT FELL TRIPPED ON RUG, (+)PLAVIX, (-) LOC, DEFORMITY TO FEMUR Encounter Type: Initial Mechanism of injury: fall ORDERING SYSTEM PROVIDED DIAGNOSIS CODES: COMPARISON: None FINDINGS: Bones: No acute fracture. Chronic appearing slight superior endplate deformity of C7. Alignment: No traumatic subluxation. Degenerative grade 1 anterolisthesis of C6 on C7. Arthritic changes: Severe degenerate facet change on the left at C2-3, C3-4 and C4-5. Disc spaces: No gross disc herniation given limitation of CT scan. Soft tissues: No soft tissue mass or large hematoma. IMPRESSION: No acute traumatic injury. Workstation ID: [id number] Dictated by: LANRE OLVERA on ThuAug 21, 2023 3:25:25 PM EST Transcribed by: LANRE OLVERA on ThuAug 21, 2023 3:25:25 PM EST Finalized by: LANRE OLVERA on ThuAug 21, 2023 3:25:25 PM EST [facility] Comment on above: Order Comment: Injur y/Trauma or Illness?:Injury/Trauma How long have you had these symptoms (acute/chronic)?:Acute Reason for exam?:PT FELL TRIPPED ON RUG, (+)PLAVIX, (-) LOC, DEFORMITY TO FEMUR Type of Exam?:Initial Mechanism of injury?:fall CT Cervical spine WO contras ton 08-21-2023 No acute traumatic injury. Workstation ID: [id number] [employer] [facility] EXAM: CT CERVICAL SPINE WITHOUT CONTRAST08/21/2023 3:06 pm TECHNIQUE: Axial CT images were obtained through the cervical spine. Sagittal and coronal reformatted images were also obtained. Dose reduction techniques were achieved by using automated exposure control and/or adjustment of mA and/or kV according to patient size and/or use of iterative reconstruction technique. HISTORY: ORDERING SYSTEM PROVIDED HISTORY: Fall, TECHNOLOGIST PROVIDED HISTORY: Injury/Trauma Reason for exam: PT FELL TRIPPED ON RUG, (+)PLAVIX, (-) LOC, DEFORMITY TO FEMUR Encounter Type: Initial Mechanism of injury: fall ORDERING SYSTEM PROVIDED DIAGNOSIS CODES: COMPARISON: None FINDINGS: Bones: No acute fracture. Chronic appearing slight superior endplate deformity of C7. Alignment: No traumatic subluxation. Degenerative grade 1 anterolisthesis of C6 on C7. Arthritic changes: Severe degenerate facet change on the left at C2-3, C3-4 and C4-5. Disc spaces: No gross disc herniation given limitation of CT scan. Soft tissues: No soft tissue mass or large hematoma. [facility] Lanre Olvera MD - 08/21/2023 EXAM: CT CERVICAL SPINE WITHOUT CONTRAST08/21/2023 3:06 pm TECHNIQUE: Axial CT images were obtained through the cervical spine. Sagittal and coronal reformatted images were also obtained. Dose reduction techniques were achieved by using automated exposure control and/or adjustment of mA and/or kV according to patient size and/or use of iterative reconstruction technique. HISTORY: ORDERING SYSTEM PROVIDED HISTORY: Fall, TECHNOLOGIST PROVIDED HISTORY: Injury/Trauma Reason for exam: PT FELL TRIPPED ON RUG, (+)PLAVIX, (-) LOC, DEFORMITY TO FEMUR Encounter Type: Initial Mechanism of injury: fall ORDERING SYSTEM PROVIDED DIAGNOSIS CODES: COMPARISON: None FINDINGS: Bones: No acute fracture. Chronic appearing slight superior endplate deformity of C7. Alignment: No traumatic subluxation. Degenerative grade 1 anterolisthesis of C6 on C7. Arthritic changes: Severe degenerate facet change on the left at C2-3, C3-4 and C4-5. Disc spaces: No gross disc herniation given limitation of CT scan. Soft tissues: No soft tissue mass or large hematoma. IMPRESSION: No acute traumatic injury. Workstation ID: [id number] [facility] Radiology Study observation (narrative) [facility] CT Cervical spine WO contras tOrdered By: Lanre Olvera on 08-21-2023 [facility] Work Phone: CT HEAD OR BRAIN WITHOUT CON TRASTon 08-21-2023 CT HEAD OR BRAIN WITHOUT CONTRAST EXAMINATION: UNENHANCED CT SCAN OF THE BRAIN: 08/21/2023 HISTORY: Dx: S72.331A (Closed displaced oblique fracture of shaft of right femur, initial encounter ([facility])) Injury/Trauma or Illness?:Injury/Trauma How long have you had these symptoms (acute/chronic)?:Acute Fall COMPARISON FILMS: Unenhanced CT scan of the brain: 05/19/2017. TECHNIQUE: 3 mm axial images from skull base through vertex without intravenous contrast were obtained. Sagittal, coronal reconstructions were also performed. Dose reduction techniques were achieved by using automated exposure control and/or adjustment of mA and/or kV according to patient size and/or use of iterative reconstruction technique. FINDINGS: There are calcifications of the intracranial carotids, vertebral arteries. There is prominence to ventricles, sulcal, cisternal spaces. There are chronic microvascular ischemic changes surrounding the ventricles. No discrete acute infarct is identified. 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 No discrete acute infarct is identified. There is no intra- or extraaxial hemorrhage. No obvious mass, mass effect or midline shift. The visualized intraorbital contents, paranasal sinuses, mastoid air cells appear normal. The calvarium appears intact. IMPRESSION: 1. No acute infarct, hemorrhage or acute intracranial injury. 2. No skull fractures. 3. Stable atrophic, chronic microvascular ischemic changes as well as scattered old lacunar infarcts. [employer] Workstation ID: [id number] Dictated by: MAURICIO HORTON on ThuAug 21, 2023 3:24:24 PM EST Transcribed by: MARGO QUIROZ on ThuAug 21, 2023 3:37:28 PM EST Finalized by: MAURICIO HORTON on ThuAug 21, 2023 4:41:07 PM EST [facility] Comment on above: Order Comment: Injur y/Trauma or Illness?:Injury/Trauma How long have you had these symptoms (acute/chronic)?:Acute Reason for exam?:PT FELL TRIPPED ON RUG, (+)PLAVIX, (-) LOC, DEFORMITY TO FEMUR Type of Exam?:Initial Mechanism of injury?:fall CT Head WO teeteeon 2023 1. No acute infarct, hemorrhage or acute intracranial injury. 2. No skull fractures. 3. Stable atrophic, chronic microvascular ischemic changes as well as scattered old lacunar infarcts. [employer] Workstation ID: [id number] [employer] EXAMINATION: UNENHANCED CT SCAN OF THE BRAIN: 08/21/2023 HISTORY: Dx: S72.331A (Closed displaced oblique fracture of shaft of right femur, initial encounter ([facility])) Injury/Trauma or Illness?:Injury/Trauma How long have you had these symptoms (acute/chronic)?:Acute Fall COMPARISON FILMS: Unenhanced CT scan of the brain: 05/19/2017. TECHNIQUE: 3 mm axial images from skull base through vertex without intravenous contrast were obtained. Sagittal, coronal reconstructions were also performed. Dose reduction techniques were achieved by using automated exposure control and/or adjustment of mA and/or kV according to patient size and/or use of iterative reconstruction technique. FINDINGS: There are calcifications of the intracranial carotids, vertebral arteries. There is prominence to ventricles, sulcal, cisternal spaces. There are chronic microvascular ischemic changes surrounding the ventricles. No discrete acute infarct is identified. 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 No discrete acute infarct is identified. There is no intra- or extraaxial hemorrhage. No obvious mass, mass effect or midline shift. The visualized intraorbital contents, paranasal sinuses, mastoid air cells appear normal. The calvarium appears intact. [employer] Mauricio Horton MD - 08/21/2023 EXAMINATION: UNENHANCED CT SCAN OF THE BRAIN: 08/21/2023 HISTORY: Dx: S72.331A (Closed displaced oblique fracture of shaft of right femur, initial encounter ([facility])) Injury/Trauma or Illness?:Injury/Trauma How long have you had these symptoms (acute/chronic)?:Acute Fall COMPARISON FILMS: Unenhanced CT scan of the brain: 05/19/2017. TECHNIQUE: 3 mm axial images from skull base through vertex without intravenous contrast were obtained. Sagittal, coronal reconstructions were also performed. Dose reduction techniques were achieved by using automated exposure control and/or adjustment of mA and/or kV according to patient size and/or use of iterative reconstruction technique. FINDINGS: There are calcifications of the intracranial carotids, vertebral arteries. There is prominence to ventricles, sulcal, cisternal spaces. There are chronic microvascular ischemic changes surrounding the ventricles. No discrete acute infarct is identified. 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 No discrete acute infarct is identified. There is no intra- or extraaxial hemorrhage. No obvious mass, mass effect or midline shift. The visualized intraorbital contents, paranasal sinuses, mastoid air cells appear normal. The calvarium appears intact. IMPRESSION: 1. No acute infarct, hemorrhage or acute intracranial injury. 2. No skull fractures. 3. Stable atrophic, chronic microvascular ischemic changes as well as scattered old lacunar infarcts. [employer] Workstation ID: [id number] [facility] Radiology Study observation (narrative) [facility] CT Head WO contrastOrdered B y: Mauricio Horton on 08-21-2023 [facility] Work Phone: Orthopedic Injury Treatmento n 08-21-2023 Joyce Espinosa MD 08/22/2023 11:31 AM Orthopedic Injury Treatment Date/Time: 08/21/2023 4:00 PM [...] the procedure well with no immediate complications [facility] POC Venous Blood Gas Panel-P [facility] 08-21-2023 Base excess Calc (BldV) [Moles/Vol] 2.2 mmol/L High -2.0 - 2.0 [facility] Calcium.ionized [Mass/Vol] 4.3 mg/dL Low 4.5 - 5.3 mg/dL [facility] Carboxyhemoglobin (BldA) [Mass fraction] 1.9 High [facility] Comment on above: Reference Ranges: [facility] Non-smokers: <1.5% Smokers: 1.5-5.0% Heavy Smokers: 5.0-9.0% Chloride [Moles/Vol] 105 mmol/L 98 - 10 8 mmol/L [facility] CO2 (BldV) [Partial pressure] 32.7 mm[Hg] Low [facility] Glucose post fast [Mass/Vol] 144 mg/dL High 65 - 99 mg/dL [facility] HCO3 (Bld) [Moles/Vol] 25.0 mmol/L 24.0 - 28.0 mmol/L [facility] Hematocrit (BldA) [Volume fraction] 41.6 % 36.0 - 46.0 % [facility] Hemoglobin (Bld) [Mass/Vol] 13.6 g/dL 12.0 - 16.0 g/dL [facility] Inhaled oxygen concentration 21 % [facility] Interpretation and review of laboratory results Abnormal [facility] Lactate [Moles/Vol] 1.5 mmol/L 0.6 - 2. 0 mmol/L [facility] Methemoglobin (BldA) [Mass fraction] % 0.0 - 2.0 % [facility] Oxygen (BldV) [Partial pressure] 40 mm[Hg] [facility] Oxygen saturation in Venous blood 80.6 % High 40.0 - 70.0 % [facility] Oxyhemoglobin (BldA) [Mass fraction] 78.8 % No established reference range [facility] pH (BldV) 7.49 [pH] High 7.32 - 7.42 [facility] Potassium [Moles/Vol] 4.1 mmol/L 3.5 - 5.1 mmol/L [facility] Sodium [Moles/Vol] 140 mmol/L 135 - 145 mmol/L [facility] Specimen source Nom (Unsp spec) Not specified [facility] XR CHEST PA/APon 08-21-2023 XR CHEST PA/AP EXAMINATION: XR CHEST PA/AP HISTORY: ORDERING SYSTEM PROVIDED HISTORY: Trauma Category 2, TECHNOLOGIST PROVIDED HISTORY: Injury/Trauma Reason for exam: Trauma Category 2 Cancer History: U Surgery, RadiationHistory: U Encounter Type: Initial Mechanism of injury: Trauma Category 2 ORDERING SYSTEM PROVIDED DIAGNOSIS CODES: COMPARISON: None. FINDINGS: One-view chest x-ray. Patient is rotated. Low lung volumes with bronchovascular crowding. No pneumothorax, pleural effusion, or focal dense airspace consolidation. Normal heart size. Diffuse osteopenia. Prior kyphoplasty changes of the lower thoracic spine. Moderate bilateral glenohumeral joint osteoarthritis with intraarticular bodies on the left. IMPRESSION: No acute cardiopulmonary process. [employer] Workstation ID: [id number] Dictated by: SPENCER ARREAGA on ThuAug 21, 2023 2:57:36 PM EST Transcribed by: NIC GUERRERO on ThuAug 21, 2023 3:25:17 PM EST Finalized by: SPENCER ARREAGA on ThuAug 21, 2023 8:28:05 PM EST [facility] Comment on above: Order Comment: Injur y/Trauma or Illness?:Injury/Trauma How long have you had these symptoms (acute/chronic)?:Acute Reason for exam?:Trauma Category 2 History of cancer?:U Surgeries, chemotherapy, or radiation?:U Type of Exam?:Initial Mechanism of injury?:Trauma Category 2 XR Chest PA and Abdomen APon 08-21-2023 No acute cardiopulmonary process. [employer] Workstation ID: [id number] GE RIS EXAMINATION: XR CHEST PA/AP HISTORY: ORDERING SYSTEM PROVIDED HISTORY: Trauma Category 2, TECHNOLOGIST PROVIDED HISTORY: Injury/Trauma Reason for exam: Trauma Category 2 Cancer History: U Surgery, RadiationHistory: U Encounter Type: Initial Mechanism of injury: Trauma Category 2 ORDERING SYSTEM PROVIDED DIAGNOSIS CODES: COMPARISON: None. FINDINGS: One-view chest x-ray. Patient is rotated. Low lung volumes with bronchovascular crowding. No pneumothorax, pleural effusion, or focal dense airspace consolidation. Normal heart size. Diffuse osteopenia. Prior kyphoplasty changes of the lower thoracic spine. Moderate bilateral glenohumeral joint osteoarthritis with intraarticular bodies on the left. [facility] Spencer Arreaga, DO - 08/21/2023 EXAMINATION: XR CHEST PA/AP HISTORY: ORDERING SYSTEM PROVIDED HISTORY: Trauma Category 2, TECHNOLOGIST PROVIDED HISTORY: Injury/Trauma Reason for exam: Trauma Category 2 Cancer History: U Surgery, RadiationHistory: U Encounter Type: Initial Mechanism of injury: Trauma Category 2 ORDERING SYSTEM PROVIDED DIAGNOSIS CODES: COMPARISON: None. FINDINGS: One-view chest x-ray. Patient is rotated. Low lung volumes with bronchovascular crowding. No pneumothorax, pleural effusion, or focal dense airspace consolidation. Normal heart size. Diffuse osteopenia. Prior kyphoplasty changes of the lower thoracic spine. Moderate bilateral glenohumeral joint osteoarthritis with intraarticular bodies on the left. IMPRESSION: No acute cardiopulmonary process. ST[employer] Workstation ID: [id number] [facility] Radiology Study observation (narrative) [facility] XR Chest PA and Abdomen APOr dered By: Spencer Arreaga on 08-21-2023 [facility] Work Phone: XR FEMUR RIGHT 2+ VIEWS (STA NDARD)on 08-21-2023 XR FEMUR RIGHT 2+ VIEWS (STANDARD) EXAMINATION: XR FEMUR RIGHT 2+ VIEWS (STANDARD) 08/21/2023 4:32 pm HISTORY: ORDERING SYSTEM PROVIDED HISTORY: femur fracture, TECHNOLOGIST PROVIDED HISTORY: Illness/Other Reason for exam: Post reduction of right femur fracture Cancer History: U Surgery, RadiationHistory: U Encounter Type: Initial Additional signs and symptoms: n ORDERING SYSTEM PROVIDED DIAGNOSIS CODES: S72.331A Closed displaced oblique fracture of shaft of right femur, initial encounter ([facility]) COMPARISON: Right femur radiographs dated 08/21/2023 FINDINGS: Three views. Status post closed reduction of the transverse oriented right femur fracture. The fracture is now in near anatomic alignment with displacement by less than 1 cm. No new fractures identified. Right hip arthroplasty in similar alignment. IMPRESSION: Successful closed reduction of the now minimally displaced fracture of the right femoral mid diaphysis. Workstation ID: [id number] Dictated by: FADI MCKENZIE on ThuAug 21, 2023 4:43:41 PM EST Transcribed by: FADI MCKENZIE on ThuAug 21, 2023 4:43:41 PM EST Finalized by: FADI MCKENZIE on ThuAug 21, 2023 4:43:41 PM EST [facility] Comment on above: Order Comment: Injur y/Trauma or Illness?:Illness/Other How long have you had these symptoms (acute/chronic)?:Acute Reason for exam?:Post reduction of right femur fracture History of cancer?:U Surgeries, chemotherapy, or radiation?:U Type of Exam?:Initial Additional signs and symptoms?:n XR FEMUR RIGHT 2+ VIEWS (STANDARD) EXAMINATION: XR FEMUR RIGHT 2+ VIEWS (STANDARD) HISTORY: ORDERING SYSTEM PROVIDED HISTORY: fall with deformity, TECHNOLOGIST PROVIDED HISTORY: Injury/Trauma Reason for exam: Trauma Category 2 Cancer History: U Surgery, RadiationHistory: U Encounter Type: Initial Mechanism of injury: FALL ORDERING SYSTEM PROVIDED DIAGNOSIS CODES: COMPARISON: None TECHNIQUE: Two views of the right femur. FINDINGS: There is a right total hip arthroplasty in anatomic alignment. There is an oblique acute fracture of the mid-diaphysis of the right femur. There is 1 shaft width posterior and medial displacement of the distal fracture fragment in relation to the proximal fracture fragment. There is up to 5.3 cm of overriding fracture fragments. There is mild apex medial and posterior angulation. The knee maintains normal alignment. IMPRESSION: 1. There is an acute, oblique, mid diaphyseal fracture of the right femur with moderate to severe displacement and over riding of fracture fragments and mild angulation. Workstation ID: [id number] Dictated by: FERMÍN BRINK on ThuAug 21, 2023 2:57:29 PM EST Transcribed by: FERMÍN BRINK on ThuAug 21, 2023 2:57:29 PM EST Finalized by: FERMÍN BRINK on ThuAug 21, 2023 2:57:29 PM EST [facility] Comment on above: Order Comment: Injur y/Trauma or Illness?:Injury/Trauma How long have you had these symptoms (acute/chronic)?:Acute Reason for exam?:Trauma Category 2 History of cancer?:U Surgeries, chemotherapy, or radiation?:U Type of Exam?:Initial Mechanism of injury?:FALL XR Femur - right 2 Viewson 0 08-21-2023 Successful closed reduction of the now minimally displaced fracture of the right femoral mid diaphysis. Workstation ID: [id number] [employer] RIS EXAMINATION: XR FEMUR RIGHT 2+ VIEWS (STANDARD) 08/21/2023 4:32 pm HISTORY: ORDERING SYSTEM PROVIDED HISTORY: femur fracture, TECHNOLOGIST PROVIDED HISTORY: Illness/Other Reason for exam: Post reduction of right femur fracture Cancer History: U Surgery, RadiationHistory: U Encounter Type: Initial Additional signs and symptoms: n ORDERING SYSTEM PROVIDED DIAGNOSIS CODES: S72.331A Closed displaced oblique fracture of shaft of right femur, initial encounter ([facility]) COMPARISON: Right femur radiographs dated 08/21/2023 FINDINGS: Three views. Status post closed reduction of the transverse oriented right femur fracture. The fracture is now in near anatomic alignment with displacement by less than 1 cm. No new fractures identified. Right hip arthroplasty in similar alignment. GE Aireon Fadi Mckenzie, DO - 08/21/2023 EXAMINATION: XR FEMUR RIGHT 2+ VIEWS (STANDARD) 08/21/2023 4:32 pm HISTORY: ORDERING SYSTEM PROVIDED HISTORY: femur fracture, TECHNOLOGIST PROVIDED HISTORY: Illness/Other Reason for exam: Post reduction of right femur fracture Cancer History: U Surgery, RadiationHistory: U Encounter Type: Initial Additional signs and symptoms: n ORDERING SYSTEM PROVIDED DIAGNOSIS CODES: S72.331A Closed displaced oblique fracture of shaft of right femur, initial encounter ([facility]) COMPARISON: Right femur radiographs dated 08/21/2023 FINDINGS: Three views. Status post closed reduction of the transverse oriented right femur fracture. The fracture is now in near anatomic alignment with displacement by less than 1 cm. No new fractures identified. Right hip arthroplasty in similar alignment. IMPRESSION: Successful closed reduction of the now minimally displaced fracture of the right femoral mid diaphysis. Workstation ID: [id number] [facility] Radiology Study observation (narrative) [facility] 1. There is an acute, oblique, mid diaphyseal fracture of the right femur with moderate to severe displacement and over riding of fracture fragments and mild angulation. Workstation ID: [id number] [employer] RIS EXAMINATION: XR FEMUR RIGHT 2+ VIEWS (STANDARD) HISTORY: ORDERING SYSTEM PROVIDED HISTORY: fall with deformity, TECHNOLOGIST PROVIDED HISTORY: Injury/Trauma Reason for exam: Trauma Category 2 Cancer History: U Surgery, RadiationHistory: U Encounter Type: Initial Mechanism of injury: FALL ORDERING SYSTEM PROVIDED DIAGNOSIS CODES: COMPARISON: None TECHNIQUE: Two views of the right femur. FINDINGS: There is a right total hip arthroplasty in anatomic alignment. There is an oblique acute fracture of the mid-diaphysis of the right femur. There is 1 shaft width posterior and medial displacement of the distal fracture fragment in relation to the proximal fracture fragment. There is up to 5.3 cm of overriding fracture fragments. There is mild apex medial and posterior angulation. The knee maintains normal alignment. Fermín Vega MD - 08/21/2023 EXAMINATION: XR FEMUR RIGHT 2+ VIEWS (STANDARD) HISTORY: ORDERING SYSTEM PROVIDED HISTORY: fall with deformity, TECHNOLOGIST PROVIDED HISTORY: Injury/Trauma Reason for exam: Trauma Category 2 Cancer History: U Surgery, RadiationHistory: U Encounter Type: Initial Mechanism of injury: FALL ORDERING SYSTEM PROVIDED DIAGNOSIS CODES: COMPARISON: None TECHNIQUE: Two views of the right femur. FINDINGS: There is a right total hip arthroplasty in anatomic alignment. There is an oblique acute fracture of the mid-diaphysis of the right femur. There is 1 shaft width posterior and medial displacement of the distal fracture fragment in relation to the proximal fracture fragment. There is up to 5.3 cm of overriding fracture fragments. There is mild apex medial and posterior angulation. The knee maintains normal alignment. IMPRESSION: 1. There is an acute, oblique, mid diaphyseal fracture of the right femur with moderate to severe displacement and over riding of fracture fragments and mild angulation. Workstation ID: [id number] [facility] Radiology Study observation (narrative) [facility] XR Femur - right 2 ViewsOrde red By: Fadi Mckenzie on 08-21-2023 [facility] Work Phone: XR Femur - right 2 ViewsOrde red By: Fermín Brink on 08-21-2023 [facility] Work Phone: XR PELVIS 1 VIEW (STANDARD)o n 08-21-2023 XR PELVIS 1 VIEW (STANDARD) EXAMINATION: XR PELVIS 1 VIEW (STANDARD) HISTORY: ORDERING SYSTEM PROVIDED HISTORY: Trauma Category 2, TECHNOLOGIST PROVIDED HISTORY: Illness/Other Reason for exam: Trauma Category 2 Cancer History: U Surgery, RadiationHistory: U Encounter Type: Initial Additional signs and symptoms: Trauma Category 2 ORDERING SYSTEM PROVIDED DIAGNOSIS CODES: COMPARISON: None FINDINGS: There is a right total hip arthroplasty. The pelvic ring is intact. There are a few calcified fibroids measuring up to 23 mm. There is a right total hip arthroplasty. There is moderate degenerative change in the left hip and in the lumbar spine. IMPRESSION: There is no acute posttraumatic abnormality in the pelvis. Workstation ID: [id number] Dictated by: FERMÍN BRINK on ThuAug 21, 2023 2:55:37 PM EST Transcribed by: FERMÍN BRINK on ThuAug 21, 2023 2:55:37 PM EST Finalized by: FERMÍN BRINK on ThuAug 21, 2023 2:55:37 PM EST [facility] Comment on above: Order Comment: Injur y/Trauma or Illness?:Illness/Other How long have you had these symptoms (acute/chronic)?:Acute Reason for exam?:Trauma Category 2 History of cancer?:U Surgeries, chemotherapy, or radiation?:U Type of Exam?:Initial Additional signs and symptoms?:Trauma Category 2 FALL XR Pelvis 1 or 2 Viewson There is no acute posttraumatic abnormality in the pelvis. Workstation ID: [id number] GE RIS EXAMINATION: XR PELVIS 1 VIEW (STANDARD) HISTORY: ORDERING SYSTEM PROVIDED HISTORY: Trauma Category 2, TECHNOLOGIST PROVIDED HISTORY: Illness/Other Reason for exam: Trauma Category 2 Cancer History: U Surgery, RadiationHistory: U Encounter Type: Initial Additional signs and symptoms: Trauma Category 2 ORDERING SYSTEM PROVIDED DIAGNOSIS CODES: COMPARISON: None FINDINGS: There is a right total hip arthroplasty. The pelvic ring is intact. There are a few calcified fibroids measuring up to 23 mm. There is a right total hip arthroplasty. There is moderate degenerative change in the left hip and in the lumbar spine. GE RIS Fermín Brink MD - 08/21/2023 EXAMINATION: XR PELVIS 1 VIEW (STANDARD) HISTORY: ORDERING SYSTEM PROVIDED HISTORY: Trauma Category 2, TECHNOLOGIST PROVIDED HISTORY: Illness/Other Reason for exam: Trauma Category 2 Cancer History: U Surgery, RadiationHistory: U Encounter Type: Initial Additional signs and symptoms: Trauma Category 2 ORDERING SYSTEM PROVIDED DIAGNOSIS CODES: COMPARISON: None FINDINGS: There is a right total hip arthroplasty. The pelvic ring is intact. There are a few calcified fibroids measuring up to 23 mm. There is a right total hip arthroplasty. There is moderate degenerative change in the left hip and in the lumbar spine. IMPRESSION: There is no acute posttraumatic abnormality in the pelvis. Workstation ID: [id number] [facility] Radiology Study observation (narrative) [facility] SURGICAL PATHOLOGYon 022 Case Report Surgical Pathology R eport Case: [id number] Authorizing Provider: Orestes Jackson MD Collected: 06/17/2022 10:36 AM Ordering Location: Ambulatory Surgery Received: 06/17/2022 04:12 PM Pathologist: Verna Toro MD Specimens: A) - ANTRUM (STOMACH) BIOPSY, Antral biopsy for H & H B) - ESOPHAGUS LOWER BIOPSY, distal esophageal biopsy [facility] FINAL DIAGNOSIS A. Stomach, antrum, biopsy: - Gastric antral type mucosa with no pathologic diagnostic abnormality. B. Esophagus, lower, biopsy: - Squamous mucosa and inflamed gastric mucosa; negative for intestinal metaplasia and dysplasia. [facility] Gross Description A. ANTRUM (STOMACH) BIOPSY Received in formalin is one piece of crews, soft tissue measuring 0.5 x 0.3 x 0.2 cm. Totally submitted in one cassette. B. ESOPHAGUS LOWER BIOPSY Received in formalin is one piece of crews, soft tissue measuring 0.5 x 0.3 x 0.1 cm. Totally submitted in one cassette. SS June 17, 2022 9:34 PM Gross examination performed at [facility], [address] [place], [place] [id number] [place] [address] Performing Lab Diagnostic interpret ation performed at [facility], [address] [address] [id number] Hosiery Repairer: Verna Toro M.D. [facility] COLONOSCOPY SCREENINGon -0 [facility] EGD DIAGNOSTICon 06-17-2022 [facility] No Panel Informationon 01-16 [facility] No Panel Informationon 12-03 IMPRESSION: Interval compression fracture of the T11 vertebral body with approximately 80% loss of height. Spondylosis and curvature of the thoracolumbar spine. Power And Recovery Supervisor: RAHEEM Transcribe Date/Time: Dec 03 2021 2:58P Dictated by : YESI COSTELLO MD This examination was interpreted and the report reviewed and electronically signed by: YESI COSTELLO MD on Dec 03 2021 3:02PM EST MARTIN_DO_NOT_ USE_DIVISIO N OF RADIOLOGY Radiology Study observation (narrative) [facility] No Panel InformationOrdered By: [facility] Provider on 12-03-2021 [facility] XR Chest PA and Lateralon * * *Final Report* * * DATE OF EXAM: Dec 03 2021 2:50PM WOX 5291 - XR CHEST 2V FRONTAL/LAT / PROCEDURE REASON: Fall, initial encounter * * * * Physician Interpretation * * * * Chest, thoracic spine, lumbar spine radiographs HISTORY: 81 years old Clinical information: Fall, initial encounter pt fell off of bed x2 days ago TECHNIQUE: Images: XR CHEST 2V FRONTAL/LAT, XR LUMBAR 3V AP/LAT/L5-S1, XR THORACIC 2V AP/LAT Comparison: December 21, 2017 Chest RESULT: No confluent infiltrate, effusion, or pneumothorax identified. Cardiac and mediastinal silhouettes are within normal limits. Atherosclerotic calcifications involving the aortic arch. Thoracic spine RESULT: Diffuse osteopenia. Right-sided convex curvature of the thoracic spine. Intervertebral disc space narrowing and endplate ossified formation at multiple levels in the thoracic spine. No compression fracture at the T11 level. There is approximately 80% loss of height. Paraspinous soft tissues are unremarkable in appearance. Lumbar spine RESULT: For the purposes of this dictation the iliac crests are at the L4-5 level. Intervertebral disc space narrowing and ossified formation at multiple levels in the lumbar spine. Left-sided convex curvature of lumbar spine. No fracture. SI joints are intact. Imaged bowel gas pattern is nonobstructed. MARTIN_DO_NOT_ USE_DIVISIO N OF RADIOLOGY Provider, [facility] - 12/03/2021 * * *Final Report* * * DATE OF EXAM: Dec 03 2021 2:50PM WOX 5291 - XR CHEST 2V FRONTAL/LAT / PROCEDURE REASON: Fall, initial encounter * * * * Physician Interpretation * * * * Chest, thoracic spine, lumbar spine radiographs HISTORY: 81 years old Clinical information: Fall, initial encounter pt fell off of bed x2 days ago TECHNIQUE: Images: XR CHEST 2V FRONTAL/LAT, XR LUMBAR 3V AP/LAT/L5-S1, XR THORACIC 2V AP/LAT Comparison: December 21, 2017 Chest RESULT: No confluent infiltrate, effusion, or pneumothorax identified. Cardiac and mediastinal silhouettes are within normal limits. Atherosclerotic calcifications involving the aortic arch. Thoracic spine RESULT: Diffuse osteopenia. Right-sided convex curvature of the thoracic spine. Intervertebral disc space narrowing and endplate ossified formation at multiple levels in the thoracic spine. No compression fracture at the T11 level. There is approximately 80% loss of height. Paraspinous soft tissues are unremarkable in appearance. Lumbar spine RESULT: For the purposes of this dictation the iliac crests are at the L4-5 level. Intervertebral disc space narrowing and ossified formation at multiple levels in the lumbar spine. Left-sided convex curvature of lumbar spine. No fracture. SI joints are intact. Imaged bowel gas pattern is nonobstructed. IMPRESSION IMPRESSION: Interval compression fracture of the T11 vertebral body with approximately 80% loss of height. Spondylosis and curvature of the thoracolumbar spine. Power And Recovery Supervisor: RAHEEM Transcribe Date/Time: Dec 03 2021 2:58P Dictated by : YESI COSTELLO MD This examination was interpreted and the report reviewed and electronically signed by: YESI COSTELLO MD on Dec 03 2021 3:02PM [facility] XR Lumbar spine 3 Viewson * * *Final Report* * * DATE OF EXAM: Dec 03 2021 2:50PM WOX 5228 - XR LUMBAR 3V AP/LAT/L5-S1 / PROCEDURE REASON: Acute low back pain, unspecified back pain laterality, unspecified whether sciat * * * * Physician Interpretation * * * * Chest, thoracic spine, lumbar spine radiographs HISTORY: 81 years old Clinical information: Fall, initial encounter pt fell off of bed x2 days ago TECHNIQUE: Images: XR CHEST 2V FRONTAL/LAT, XR LUMBAR 3V AP/LAT/L5-S1, XR THORACIC 2V AP/LAT Comparison: December 21, 2017 Chest RESULT: No confluent infiltrate, effusion, or pneumothorax identified. Cardiac and mediastinal silhouettes are within normal limits. Atherosclerotic calcifications involving the aortic arch. Thoracic spine RESULT: Diffuse osteopenia. Right-sided convex curvature of the thoracic spine. Intervertebral disc space narrowing and endplate ossified formation at multiple levels in the thoracic spine. No compression fracture at the T11 level. There is approximately 80% loss of height. Paraspinous soft tissues are unremarkable in appearance. Lumbar spine RESULT: For the purposes of this dictation the iliac crests are at the L4-5 level. Intervertebral disc space narrowing and ossified formation at multiple levels in the lumbar spine. Left-sided convex curvature of lumbar spine. No fracture. SI joints are intact. Imaged bowel gas pattern is nonobstructed. ZZZ_DO_NOT_ USE_DIVISIO N OF RADIOLOGY Provider, [facility] - 12/03/2021 * * *Final Report* * * DATE OF EXAM: Dec 03 2021 2:50PM WOX 5228 - XR LUMBAR 3V AP/LAT/L5-S1 / PROCEDURE REASON: Acute low back pain, unspecified back pain laterality, unspecified whether sciat * * * * Physician Interpretation * * * * Chest, thoracic spine, lumbar spine radiographs HISTORY: 81 years old Clinical information: Fall, initial encounter pt fell off of bed x2 days ago TECHNIQUE: Images: XR CHEST 2V FRONTAL/LAT, XR LUMBAR 3V AP/LAT/L5-S1, XR THORACIC 2V AP/LAT Comparison: December 21, 2017 Chest RESULT: No confluent infiltrate, effusion, or pneumothorax identified. Cardiac and mediastinal silhouettes are within normal limits. Atherosclerotic calcifications involving the aortic arch. Thoracic spine RESULT: Diffuse osteopenia. Right-sided convex curvature of the thoracic spine. Intervertebral disc space narrowing and endplate ossified formation at multiple levels in the thoracic spine. No compression fracture at the T11 level. There is approximately 80% loss of height. Paraspinous soft tissues are unremarkable in appearance. Lumbar spine RESULT: For the purposes of this dictation the iliac crests are at the L4-5 level. Intervertebral disc space narrowing and ossified formation at multiple levels in the lumbar spine. Left-sided convex curvature of lumbar spine. No fracture. SI joints are intact. Imaged bowel gas pattern is nonobstructed. IMPRESSION IMPRESSION: Interval compression fracture of the T11 vertebral body with approximately 80% loss of height. Spondylosis and curvature of the thoracolumbar spine. Power And Recovery Supervisor: RAHEEM Transcribe Date/Time: Dec 03 2021 2:58P Dictated by : YESI COSTELLO MD This examination was interpreted and the report reviewed and electronically signed by: YESI COSTELLO MD on Dec 03 2021 3:02PM [facility] XR Thoracic spine AP and Lat [facility] 12-03-2021 * * *Final Report* * * DATE OF EXAM: Dec 03 2021 2:50PM WOX 5262 - XR THORACIC 2V AP/LAT / PROCEDURE REASON: Upper back pain * * * * Physician Interpretation * * * * Chest, thoracic spine, lumbar spine radiographs HISTORY: 81 years old Clinical information: Fall, initial encounter pt fell off of bed x2 days ago TECHNIQUE: Images: XR CHEST 2V FRONTAL/LAT, XR LUMBAR 3V AP/LAT/L5-S1, XR THORACIC 2V AP/LAT Comparison: December 21, 2017 Chest RESULT: No confluent infiltrate, effusion, or pneumothorax identified. Cardiac and mediastinal silhouettes are within normal limits. Atherosclerotic calcifications involving the aortic arch. Thoracic spine RESULT: Diffuse osteopenia. Right-sided convex curvature of the thoracic spine. Intervertebral disc space narrowing and endplate ossified formation at multiple levels in the thoracic spine. No compression fracture at the T11 level. There is approximately 80% loss of height. Paraspinous soft tissues are unremarkable in appearance. Lumbar spine RESULT: For the purposes of this dictation the iliac crests are at the L4-5 level. Intervertebral disc space narrowing and ossified formation at multiple levels in the lumbar spine. Left-sided convex curvature of lumbar spine. No fracture. SI joints are intact. Imaged bowel gas pattern is nonobstructed. ZZZ_DO_NOT_ USE_DIVISIO N OF RADIOLOGY Provider, [facility] 12/03/[facility]21 * * *Final Report* * * DATE OF EXAM: Dec 03 2021 2:50PM WOX 5262 - XR THORACIC 2V AP/LAT / PROCEDURE REASON: Upper back pain * * * * Physician Interpretation * * * * Chest, thoracic spine, lumbar spine radiographs HISTORY: 81 years old Clinical information: Fall, initial encounter pt fell off of bed x2 days ago TECHNIQUE: Images: XR CHEST 2V FRONTAL/LAT, XR LUMBAR 3V AP/LAT/L5-S1, XR THORACIC 2V AP/LAT Comparison: December 21, 2017 Chest RESULT: No confluent infiltrate, effusion, or pneumothorax identified. Cardiac and mediastinal silhouettes are within normal limits. Atherosclerotic calcifications involving the aortic arch. Thoracic spine RESULT: Diffuse osteopenia. Right-sided convex curvature of the thoracic spine. Intervertebral disc space narrowing and endplate ossified formation at multiple levels in the thoracic spine. No compression fracture at the T11 level. There is approximately 80% loss of height. Paraspinous soft tissues are unremarkable in appearance. Lumbar spine RESULT: For the purposes of this dictation the iliac crests are at the L4-5 level. Intervertebral disc space narrowing and ossified formation at multiple levels in the lumbar spine. Left-sided convex curvature of lumbar spine. No fracture. SI joints are intact. Imaged bowel gas pattern is nonobstructed. IMPRESSION IMPRESSION: Interval compression fracture of the T11 vertebral body with approximately 80% loss of height. Spondylosis and curvature of the thoracolumbar spine. Power And Recovery Supervisor: RAHEEM Transcribe Date/Time: Dec 03 2021 2:58P Dictated by : YESI COSTELLO MD This examination was interpreted and the report reviewed and electronically signed by: YESI COSTELLO MD on Dec 03 2021 3:02PM EST [facility] CTA Headon 05-20-2017 CTA Head Exam Date/Time:05/19 18:29 EDTReason for Exam:CVAReportEXAMINATION : CTA Neck, CTA HeadCLINICAL STATEMENT: Trouble walking, left facial droop, slurred speech, nauseaand vomiting.COMPARISON: None.TECHNIQUE: A CT scan of the head and neck was performed without contrast,followed by CT angiogram of the head and neck with coronal and sagittalreformatted images included. 100 mL Omnipaque 350 contrast was administeredintravenously. MIP (maximum intensity projection) images were performed.Carotid stenosis is reported according to NASCET criteria.Dose reduction techniques were achieved by using automated exposure controland/or adjustment of mA and/or kV according to patient size and/or use ofiterative reconstruction technique.FINDINGS:CTA NECK: The included aortic arch demonstrates mild atheroscleroticcalcificati on. There is a common origin of the left common carotid artery andbrachiocephalic artery. The origins of the great vessels are patent. The commoncarotid arteries are tortuous although widely patent. The carotid bifurcationsare widely patent. The external carotid arteries are patent. The cervicalinternal carotid arteries are rather tortuous, although patent throughout theircourses without hemodynamically significant stenosis.The vertebral arteries arise from their respective subclavian arteries, arepatent at their origins, and throughout their cervical courses. The leftvertebral artery is dominant and the right vertebral artery is developmentallyhypoplastic .There is no suspicious mass lesion in the neck soft tissues. The included lungapices are unremarkable.CTA HEAD: The petrous, cavernous, and supraclinoid internal carotid arteriesare patent. The middle cerebral arteries and anterior cerebral arteries arepatent with symmetric arborization of their distal branches. A left posteriorcommunicating artery is visualized and patent. Anterior communicating artery ispatent. A right posterior communicating artery is not definitely visualized.The intracranial vertebral arteries are patent and converge to form a normalcaliber and patent basilar artery. The posteroinferior cerebellar arteries,anteroinferior cerebellar arteries, superior cerebellar arteries, and posteriorcerebral arteries are patent.Exam Date/Time:05/19/2017 18:29 EDTReportThere is no proximal branch occlusion, intraluminal thrombus, saccularaneurysm, or vascular malformation identified at the elem of [place].NONCONTRAST HEAD CT: The brain volume is age appropriate. The ventricles, basalcisterns, and sulci appear unremarkable. There is no mass effect or midlineshift. No evident intracranial hemorrhage or territorial loss of perry-whitedifferentiation. There is mild hypoattenuation in the periventricular andsubcortical white matter likely chronic small vessel ischemic changes.The orbits appear intact. The paranasal sinuses and temporal bone structuresappear well aerated. The bony calvarium appears intact.IMPRESSION:1. No evident acute intracranial abnormality. If there is persistent clinicalconcern for acute ischemia, further evaluation with MRI is suggested.2. No hemodynamically significant stenosis within the cervical arterialvasculature.3. Patent elem of [place] without branch occlusion or intraluminal thrombusidentified. FINAL REPORT Dictated: 05/19/2017 10:14 pm Glynn Walker MSigned (Electronic Signature): 05/19/2017 10:14 pmSigned by: Glynn Walker Technologist: RADHA Rodríguez [facility] CTA Neckon 05-20-2017 CTA Neck Exam Date/Time:05/19 18:28 EDTReason for Exam:CVAReportEXAMINATION : CTA Neck, CTA HeadCLINICAL STATEMENT: Trouble walking, left facial droop, slurred speech, nauseaand vomiting.COMPARISON: None.TECHNIQUE: A CT scan of the head and neck was performed without contrast,followed by CT angiogram of the head and neck with coronal and sagittalreformatted images included. 100 mL Omnipaque 350 contrast was administeredintravenously. MIP (maximum intensity projection) images were performed.Carotid stenosis is reported according to NASCET criteria.Dose reduction techniques were achieved by using automated exposure controland/or adjustment of mA and/or kV according to patient size and/or use ofiterative reconstruction technique.FINDINGS:CTA NECK: The included aortic arch demonstrates mild atheroscleroticcalcificati on. There is a common origin of the left common carotid artery andbrachiocephalic artery. The origins of the great vessels are patent. The commoncarotid arteries are tortuous although widely patent. The carotid bifurcationsare widely patent. The external carotid arteries are patent. The cervicalinternal carotid arteries are rather tortuous, although patent throughout theircourses without hemodynamically significant stenosis.The vertebral arteries arise from their respective subclavian arteries, arepatent at their origins, and throughout their cervical courses. The leftvertebral artery is dominant and the right vertebral artery is developmentallyhypoplastic .There is no suspicious mass lesion in the neck soft tissues. The included lungapices are unremarkable.CTA HEAD: The petrous, cavernous, and supraclinoid internal carotid arteriesare patent. The middle cerebral arteries and anterior cerebral arteries arepatent with symmetric arborization of their distal branches. A left posteriorcommunicating artery is visualized and patent. Anterior communicating artery ispatent. A right posterior communicating artery is not definitely visualized.The intracranial vertebral arteries are patent and converge to form a normalcaliber and patent basilar artery. The posteroinferior cerebellar arteries,anteroinferior cerebellar arteries, superior cerebellar arteries, and posteriorcerebral arteries are patent.Exam Date/Time:05/19/2017 18:28 EDTReportThere is no proximal branch occlusion, intraluminal thrombus, saccularaneurysm, or vascular malformation identified at the elem of [place].NONCONTRAST HEAD CT: The brain volume is age appropriate. The ventricles, basalcisterns, and sulci appear unremarkable. There is no mass effect or midlineshift. No evident intracranial hemorrhage or territorial loss of perry-whitedifferentiation. There is mild hypoattenuation in the periventricular andsubcortical white matter likely chronic small vessel ischemic changes.The orbits appear intact. The paranasal sinuses and temporal bone structuresappear well aerated. The bony calvarium appears intact.IMPRESSION:1. No evident acute intracranial abnormality. If there is persistent clinicalconcern for acute ischemia, further evaluation with MRI is suggested.2. No hemodynamically significant stenosis within the cervical arterialvasculature.3. Patent elem of [place] without branch occlusion or intraluminal thrombusidentified. FINAL REPORT Dictated: 05/19/2017 10:14 pm Glynn Walker MSigned (Electronic Signature): 05/19/2017 10:14 pmSigned by: Glynn Walker Technologist: RADHA Normal [facility] Auto Diffon 05-19-2017 Basophils Auto #/vol (Bld) 0.0 E3/mcL Normal 0.0-0.2 [facility] Comment on above: Order Comment: Order Added by Discern Expert. Performed By: #### 2 [id number] ####INDIA [address]fJaso[address] [place] [address] Basophils/100 WBC Auto (Bld) 0.4 % Normal 0.0-2.0 [facility] Comment on above: Order Comment: Order Added by Sidney Expert. Performed By: #### 2 [id number] ####INDIA ItsNftp7623 [place] [address] Eos Absolute 0.0 E3/mcL Normal 0.0-0.7 [facility] Comment on above: Order Comment: Order Added by Discern Expert. Performed By: #### 2 152553 ####INDIA BkfAwek[address] [place] [address] Eosinophils/100 leukocytes 0.3 % Normal 0.0-11.0 [facility] Comment on above: Order Comment: Order Added by Discern Expert. Performed By: #### 2 164029 ####INDIA EvgKjqu94[address] [place] [address] Lymphocytes 1.6 E3/mcL Normal 1.2-3.4 [facility] Comment on above: Order Comment: Order Added by Discern Expert. Performed By: #### 2 [id number] ####INDIA [address] [place] [address] Lymphocytes/100 leukocytes 15.4 % Low 20.0-55.0 [facility] Comment on above: Order Comment: Order Added by Discern Expert. Performed By: #### 2 935000 ####INDIA [address] [place] [address] W[place] Absolute 0.9 E3/mcL High 0.0-0.7 [facility] Comment on above: Order Comment: Order Added by Discern Expert. Performed By: #### 2 762501 ####INDIA [address] [place] [address] Monocytes/100 leukocytes 8.2 % Normal 0.0-10.0 [facility] Comment on above: Order Comment: Order Added by Discern Expert. Performed By: #### 2 000392 ####INDIA [address] [place] [address] Neutro Absolute 8.1 E3/mcL High 1.4-6.5 [facility] Comment on above: Order Comment: Order Added by Discern Expert. Performed By: #### 2 106460 ####INDIA [address] [place] [address] Neutro Auto 75.7 % High 37.0-75.0 [facility] Comment on above: Order Comment: Order Added by Discern Expert. Performed By: #### 2 546602 ####INDIA [address] [place] [address] BMPon 05-19-2017 BUN/Creatinine Ratio 42.0 ratio High 5.4-30.0 [facility] Comment on above: Performed By: #### 2 599004 ####INDIA ReyesTtmOxry[address] [place] [address] Creatinine 0.5 mg/dL Low 0.6-1.3 [facility] Comment on above: Performed By: #### 2 614760 ####INDIA [address]ZylPyhu[address] [place] [address] Urea nitrogen 21 mg/dL High 7-18 [facility] Comment on above: Performed By: #### 2 490314 ####INDIA ReyesLnaFmie[address] [place] [address] Calcium 9.3 mg/dL Normal 8.4-10.2 [facility] Comment on above: Performed By: #### 2 351494 ####INDIA Gil[address] [place] [address] Chloride 103 mmol/L Normal 98-107 [facility] Comment on above: Performed By: #### 2 055058 ####INDIA L[address]vRnwc8604 [place] [address] CO2 23.8 mmol/L Low 24.0-30.0 [facility] Comment on above: Performed By: #### 2 906007 ####INDIA RroXgyz[address] [place] [address] Glucose mass conc 120 mg/dL High 70-99 [facility] Comment on above: Performed By: #### 2 844554 ####INDIA TgfVjnc45[address] [place] [address] Potassium molar conc 3.6 mmol/L Normal 3.5-5.1 [facility] Comment on above: Performed By: #### 2 045507 ####INDIA NgrIhmk75[address] [place] [address] Sodium 136 mmol/L Normal 136-145 [facility] Comment on above: Performed By: #### 2 416049 ####INDIA ErzQvfr44[address] [place] [address] CBC w/ Auto Diffon 7 Erythrocyte distribution width Auto Ratio (RBC) 13.4 % Normal 11.5-14.5 [facility] Comment on above: Performed By: #### 2 708485 ####INDIA ReyesWflRzzi[address] [place] [address] Erythrocytes (RBC) 3.89 E6/mcL Low 3.90-5.40 [facility] Comment on above: Performed By: #### 2 394811 ####INDIA FrmAdts[address] [place] [address] Hematocrit (HCT) 36.3 % Normal 36.0-48.0 [facility] Comment on above: Performed By: #### 2 845709 ####INDIA [address] [place] [address] Hemoglobin mass conc (Bld) 12.1 g/dL Normal 12.0-16.0 [facility] Comment on above: Performed By: #### 2 900389 ####INDIA [address] [place] [address] MCH 31.2 pg High 27.0-31.0 [facility] Comment on above: Performed By: #### 2 321099 ####[place]IA Re[address]GakCean[address] [place] [address]0005 MCHC mass conc (RBC) 33.4 g/dL Normal 33.0-37.0 [facility] Comment on above: Performed By: #### 2 485098 ####INDIA [address] [place] [address] MCV 93.4 fL Normal 78.0-100.0 [facility] Comment on above: Performed By: #### 2 258766 ####[place]IA ReyesPvkZxmx[address] [place] [address] Platelet mean volume (PMV) 7.0 fL Low 7.4-11.0 [facility] Comment on above: Performed By: #### 2 594397 ####[place]IA [address]ifXilc[address] [place] [address] Platelets 346 E3/mcL Normal 130-400 [facility] Comment on above: Performed By: #### 2 513919 ####INDIA ReyesDgzCtym[address] [place] [address] WBC (Leukocytes) 10.6 E3/mcL Normal 3.6-11.0 [facility] Comment on above: Performed By: #### 2 529125 ####INDIA ReyesAyvUeph[address]135 [place] [address] CKon 05-19-2017 Total CK 98 Int._Unit/L Normal 26-140 [facility] Comment on above: Performed By: #### 2 912660 ####INDIA ReyesCnpPydq1670 [place] [address] CKMBon 05-19-2017 CKMB 3.6 ng/mL Normal 0.0-5.0 [facility] Comment on above: Performed By: #### 2 487622 ####INDIA EifDkwo[address] [place] [address] CT Brain(ED Only-Stroke Prot ocol)on 05-19-2017 CT Brain(ED Only-Stroke Protocol) Exam Date/Time:05/19/2017 16:45 EDTReason for Exam:StrokeReportEXAM: CT Brain(ED Only-Stroke Protocol)CLINICAL STATEMENT: Difficulty walking since this morning. Left facial droop.Slurred speech. Nausea and vomiting.COMPARISON: None.TECHNIQUE: CT examination of the head without IV contrast.Dose reduction techniques were achieved by using automated exposure controland/or adjustment of mA and/or kV according to patient size and/or use ofiterative reconstruction technique.FINDINGS: There is no evidence of acute intracranial hemorrhage, midline shiftor abnormal extra-axial fluid collection identified. The perry-white interfaceappears preserved. Low-density change in the periventricular and subcorticalwhite matter bilaterally is seen. There is a chronic-appearing lacunar infarctin the right thalamus. Ventricles appear symmetric. Basilar cisterns andposterior fossa structure details appear preserved.There is evidence of bilateral cataract surgery. Visualized paranasal sinusesand mastoid air cells appear clear. No calvarial fracture is seen.IMPRESSION:1. No acute intracranial process is identified.2. Chronic-appearing right thalamic lacunar infarct.3. Mild to moderate chronic small vessel ischemic change.results were called by Dr. Crissy Arroyo DO to Dr. Whiteside At 05/19/20174:51 PM. FINAL REPORT Dictated: 05/19/2017 5:18 pm Crissy Arroyo DO PSigned (Electronic Signature): 05/19/2017 5:18 pmSigned by: Crissy Arroyo DO Technologist: MLL Normal [facility] Hep Func Panelon 05-19-2017 Alanine aminotransferase (ALT) 15 Int._Unit/L Normal 10-40 [facility] Comment on above: Performed By: #### 2 046900 ####INDIA InuGnwl[address] [place] [address] Albumin 4.6 g/dL Normal 3.2-5.0 [facility] Comment on above: Performed By: #### 2 159142 ####INDIA [address] [place] [address] Albumin/Globulin Ratio 1.6 {ratio} Normal 1.1-1.9 [facility] Comment on above: Performed By: #### 2 879313 ####INDIA [address] [place] [address] Alk Phos 62 Int._Unit/L Normal 42-121 [facility] Comment on above: Performed By: #### 2 982711 ####INDIA [address] [place] [address] Aspartate aminotransferase (AST) 19 Int._Unit/L Normal 10-42 [facility] Comment on above: Performed By: #### 2 858635 ####INDIA [address] [place] [address] Bili Indirect >0.5 Normal [facility] Comment on above: Result Comment: No e stablished ranges available for the Indirect Biliruben. Performed By: #### 2 609666 ####INDIA [address] [place] [address] Bili Total 0.6 mg/dL Normal 0.2-1.0 [facility] Comment on above: Performed By: #### 2 297815 ####INDIA [address] [place] [address] Globulin 2.8 g/dL Normal 2.0-4.0 [facility] Comment on above: Performed By: #### 2 140232 ####INDIA [address] [place] [address] Protein 7.4 g/dL Normal 6.4-8.3 [facility] Comment on above: Performed By: #### 2 141028 ####INDIA [address] [place] [address] Bili Direct <.10 Normal .00-.20 [facility] Comment on above: Performed By: #### 2 256701 ####INDIA [address] [place] [address] PTon 05-19-2017 INR Coag RelTime (PPP) 1.0 {INR} Normal 1.0-1.2 [facility] Comment on above: Result Comment: INR Recommended Therapeuptic Ranges: Prophylaxis/treatment of DVT and PE?2.0-3.0 Prevention of systemic embolism?.2.0-3.0 Mechanical prosthetic values?2.5-3.5 CRITICAL VALUES?.>4.0 Performed By: #### 2 [id number] ####INDIA Hematology [employer] [address]vklccat[address]72 [place] [address] Prothrombin time (PT) Coag time (PPP) 12.3 second(s) Normal 11.6-14.6 [facility] Comment on above: Performed By: #### 2 573632 ####[facility] [address] [place] [address] PTTon 05-19-2017 aPTT 28.8 second(s) Normal 23.2-36.4 [facility] Comment on above: Performed By: #### 2 277955 ####[place] [employer] [address] [place] [address] PTT Control Ratioon 05-19-20 17 PTT Ratio 1.0 ratio Normal 0.8-1.2 [facility] Comment on above: Order Comment: Order added by Discern Expert. Performed By: #### 8 [id number] ####[place]IA H[facility] [employer] [address] [place] [address] Troponin-Ion 05-19-2017 Troponin I.cardiac mass conc ng/mL Normal .00-.03 [facility] Comment on above: Performed By: #### 2 949327 ####INDIAMai ReyesMcaDtfp5679 [place] [address] eGFRon 05-19-2017 eGFR (non-black) mL/min/{1.73_m2} Normal [facility] Comment on above: Order Comment: Order added by Discern Expert. Performed By: #### 1 [id number] ####INDIA [address]TtbLxtt[address] [place] [address] Vital Signs Date Time Vital Sign Value Performing Clinician Facility 05-05-2025 14:13-0400 Body height 157.[address] Jonny Torres MD Work Phone: 4(602)684-070119 [place] [address] 05-05-2025 14:13-0400 Body mass index (BMI) [Ratio] 23 kg/m2 Dr. Jonny Torres MD Work Phone: 4(815)979-145319 [place] [address] 05-05-2025 14:13-0400 Body weight 57.[address] Jonny Torres MD Work Phone: 0(950)662-206619 [place] [address] 05-05-2025 14:13-0400 Diastolic blood pressure 73 mm[Hg] Dr. Jonny Torres MD Work Phone: 8(914)005-715719 [place] [address] 05-05-2025 14:13-0400 Heart rate 78 /min Dr. Jonny Torres MD Work Phone: 8(334)326-784719 [place] [address] 05-05-2025 14:13-0400 Respiratory rate 16 /min Dr. Jonny Torres MD Work Phone: 6(702)903-586319 [place] [address] 05-05-2025 14:13-0400 Systolic blood pressure 143 mm[Hg] Dr. Jonny Torres MD Work Phone: 4(307)615-891019 [place] [address] 04-18-2025 11:08-0400 Body height 157.[address] Jonny Torres MD Work Phone: 4(832)373-932119 [place] [address] 04-18-2025 11:08-0400 Body mass index (BMI) [Ratio] 23 kg/m2 Dr. Jonny Torres MD Work Phone: 1(783)100-942519 [place] [address] 04-18-2025 11:08-0400 Body weight 57.[address] Jonny Torres MD Work Phone: 7(460)101-919219 [place] [address] 04-13-2025 13:37-0400 Body mass index (BMI) [Ratio] 23.19 kg/m2 Ramone Dorman MD Work Phone: 0(980)906-426203 [place] [address] 04-13-2025 13:37-0400 Body temperature 99 [degF] Ramone Dorman MD Work Phone: [facility] 04-13-2025 13:37-0400 Body weight 57.52 kg Ramone Dorman MD Work Phone: [facility] 04-13-2025 13:37-0400 Diastolic blood pressure 74 mm[Hg] Ramone Dorman MD Work Phone: [facility] 04-13-2025 13:37-0400 Heart rate 76 /min Ramone Dorman MD Work Phone: [facility] 04-13-2025 13:37-0400 Respiratory rate 18 /min Ramone Dorman MD Work Phone: [facility] 04-13-2025 13:37-0400 SaO2% (BldA) [Mass fraction] 97 % Ramone Dorman MD Work Phone: [facility] 04-13-2025 13:37-0400 Systolic blood pressure 124 mm[Hg] Ramone Dorman MD Work Phone: [facility] 04-06-2025 15:25-0400 Body mass index (BMI) [Ratio] 23.27 kg/m2 Ramone Dorman MD Work Phone: [facility] 04-06-2025 15:25-0400 Body temperature 97.81 [degF] Ramone Dorman MD Work Phone: [facility] 04-06-2025 15:25-0400 Body weight 57.7 kg Ramone Dorman MD Work Phone: [facility] 04-06-2025 15:25-0400 Diastolic blood pressure 62 mm[Hg] Ramone Dorman MD Work Phone: [facility] 04-06-2025 15:25-0400 Heart rate 79 /min Ramone Dorman MD Work Phone: [facility] 04-06-2025 15:25-0400 Respiratory rate 20 /min Ramone Dorman MD Work Phone: [facility] 04-06-2025 15:25-0400 SaO2% (BldA) [Mass fraction] 99 % Ramone Dorman MD Work Phone: [facility] 04-06-2025 15:25-0400 Systolic blood pressure 138 mm[Hg] Ramone Dorman MD Work Phone: [facility] 04-04-2025 14:12-0400 Body height 157.[address] Jonny Torres MD Work Phone: 7(723)630-388359 [place] [address] 04-04-2025 14:12-0400 Body mass index (BMI) [Ratio] 22.8 kg/m2 Dr. Jonny Trores MD Work Phone: 7(236)419-539919 [place] [address] 04-04-2025 14:12-0400 Body weight 56.[address] Jonny Torres MD Work Phone: 5(586)448-995359 [place] [address] 03-02-2025 12:59-0400 Body height 157.[address] Jonny Torres MD Work Phone: 3(703)949-927859 [place] [address] 03-02-2025 12:59-0400 Body mass index (BMI) [Ratio] 22.8 kg/m2 Dr. Jonny Torres MD Work Phone: 8(859)396-753259 [place] [address] 03-02-2025 12:59-0400 Body weight 56.[address] Jonny Torres MD Work Phone: [facility] 02-15-2025 14:11-0400 Body mass index (BMI) [Ratio] 22.5 kg/m2 Jonny Torres MD Work Phone: [facility] 02-15-2025 14:11-0400 Body weight 55.8 kg Jonny Torres MD Work Phone: [facility] 02-15-2025 14:11-0400 Diastolic blood pressure 74 mm[Hg] Jonny Torres MD Work Phone: [facility] 02-15-2025 14:11-0400 Heart rate 74 /min Jonny Torres MD Work Phone: [facility] 02-15-2025 14:11-0400 SaO2% (BldA) [Mass fraction] 96 % Jonny Torres MD Work Phone: [facility] 02-15-2025 14:11-0400 Systolic blood pressure 174 mm[Hg] Jonny Torres MD Work Phone: [facility] 02-13-2025 08:21-0400 Body height 157.[address] Jonny Torres MD Work Phone: [facility] 02-03-2025 14:07-0400 Body height 157.[address] Jonny Torres MD Work Phone: [facility] 01-12-2025 13:59-0400 Body height 157.[address] Jonny Torres MD Work Phone: [facility] 01-12-2025 13:59-0400 Body mass index (BMI) [Ratio] 22.8 kg/m2 Dr. Jonny Torres MD Work Phone: [facility] 01-12-2025 13:59-0400 Body weight 56.[address] Jonny Torres MD Work Phone: [facility] 11-10-2024 11:05-0400 Body mass index (BMI) [Ratio] 23.6 kg/m2 Dr. Jonny Torres MD Work Phone: [facility] 11-10-2024 11:05-0400 Body weight 58.[address] Jonny Torres MD Work Phone: [facility] 10-27-2024 11:51-0400 Body mass index (BMI) [Ratio] 23.41 kg/m2 Kassie Bales APRN.CNP Work Phone: [facility] 10-27-2024 11:51-0400 Body temperature 99.1 [degF] Kassie Bales SCIENTIST ENGINEER.ASSOCIATE PROPERTY MANAGER Work Phone: [facility] 10-27-2024 11:51-0400 Body weight 58.06 kg Kassie Bales SCIENTIST ENGINEER.ASSOCIATE PROPERTY MANAGER Work Phone: [facility] 10-27-2024 11:51-0400 Diastolic blood pressure 60 mm[Hg] Kassie Bales SCIENTIST ENGINEER.ASSOCIATE PROPERTY MANAGER Work Phone: [facility] 10-27-2024 11:51-0400 Heart rate 73 /min Kassie Bales SCIENTIST ENGINEER.ASSOCIATE PROPERTY MANAGER Work Phone: [facility] 10-27-2024 11:51-0400 Respiratory rate 12 /min Kassie Bales SCIENTIST ENGINEER.ASSOCIATE PROPERTY MANAGER Work Phone: [facility] 10-27-2024 11:51-0400 SaO2% (BldA) [Mass fraction] 99 % Kassie Bales SCIENTIST ENGINEER.ASSOCIATE PROPERTY MANAGER Work Phone: [facility] 10-27-2024 11:51-0400 Systolic blood pressure 160 mm[Hg] Kassie Bales SCIENTIST ENGINEER.[facility] Work Phone: [facility] 10-16-2024 08:37-0400 Body mass index (BMI) [Ratio] 23.47 kg/m2 Antonio Estradaisler-Wood SCIENTIST ENGINEER.ASSOCIATE PROPERTY MANAGER Work Phone: [facility] 10-16-2024 08:37-0400 Body temperature 98.8 [degF] Antonio Praisler-Wood SCIENTIST ENGINEER.ASSOCIATE PROPERTY MANAGER Work Phone: [facility] 10-16-2024 08:37-0400 Body weight 58.2 kg Antonio Praisler-Wood SCIENTIST ENGINEER.ASSOCIATE PROPERTY MANAGER Work Phone: [facility] 10-16-2024 08:37-0400 Diastolic blood pressure 72 mm[Hg] Antonio Praisler-Wood SCIENTIST ENGINEER.ASSOCIATE PROPERTY MANAGER Work Phone: [facility] 10-16-2024 08:37-0400 Heart rate 82 /min Antonio Praisler-Wood SCIENTIST ENGINEER.ASSOCIATE PROPERTY MANAGER Work Phone: [facility] 10-16-2024 08:37-0400 Respiratory rate 16 /min Antonio Praisler-Wood SCIENTIST ENGINEER.ASSOCIATE PROPERTY MANAGER Work Phone: [facility] 10-16-2024 08:37-0400 SaO2% (BldA) [Mass fraction] 97 % Antonio Praisler-Wood SCIENTIST ENGINEER.ASSOCIATE PROPERTY MANAGER Work Phone: [facility] 10-16-2024 08:37-0400 Systolic blood pressure 128 mm[Hg] Antonio Praisler-Wood SCIENTIST ENGINEER.ASSOCIATE PROPERTY MANAGER Work Phone: [facility] 09-27-2024 13:16-0500 Body mass index (BMI) [Ratio] 23.63 kg/m2 Misael Lara SCIENTIST ENGINEER.4TH GRADE TEACHER Work Phone: [facility] 09-27-2024 13:16-0500 Body temperature 98.49 [degF] Misael Lara SCIENTIST ENGINEER.4TH GRADE TEACHER Work Phone: [facility] 09-27-2024 13:16-0500 Body weight 58.6 kg Misael Lara SCIENTIST ENGINEER.4TH GRADE TEACHER Work Phone: [facility] 09-27-2024 13:16-0500 Diastolic blood pressure 72 mm[Hg] Misael Lara SCIENTIST ENGINEER.4TH GRADE TEACHER Work Phone: [facility] 09-27-2024 13:16-0500 Heart rate 80 /min Misael Lara SCIENTIST ENGINEER.4TH GRADE TEACHER Work Phone: [facility] 09-27-2024 13:16-0500 Systolic blood pressure 156 mm[Hg] Misael Lara SCIENTIST ENGINEER.4TH GRADE TEACHER Work Phone: [facility] 09-09-2024 13:20-0500 Body mass index (BMI) [Ratio] 23.41 kg/m2 Kenny Older SCIENTIST ENGINEER.ASSOCIATE PROPERTY MANAGER Work Phone: [facility] 09-09-2024 13:20-0500 Body weight 58.06 kg Kenny Older SCIENTIST ENGINEER.ASSOCIATE PROPERTY MANAGER Work Phone: [facility] 09-09-2024 13:20-0500 Diastolic blood pressure 80 mm[Hg] Kenny Older SCIENTIST ENGINEER.ASSOCIATE PROPERTY MANAGER Work Phone: [facility] 09-09-2024 13:20-0500 Heart rate 84 /min Kenny Older SCIENTIST ENGINEER.ASSOCIATE PROPERTY MANAGER Work Phone: [facility] 09-09-2024 13:20-0500 Respiratory rate 16 /min Kenny Older SCIENTIST ENGINEER.ASSOCIATE PROPERTY MANAGER Work Phone: [facility] 09-09-2024 13:20-0500 SaO2% (BldA) [Mass fraction] 98 % Kenny Older SCIENTIST ENGINEER.ASSOCIATE PROPERTY MANAGER Work Phone: [facility] 09-09-2024 13:20-0500 Systolic blood pressure 148 mm[Hg] Kenny Older SCIENTIST ENGINEER.ASSOCIATE PROPERTY MANAGER Work Phone: [facility] 07-20-2024 11:58-0500 Body mass index (BMI) [Ratio] 23.35 kg/m2 Jonny Torres MD Work Phone: [facility] 07-20-2024 11:58-0500 Body temperature 98.01 [degF] Jonny Torres MD Work Phone: [facility] 07-20-2024 11:58-0500 Body weight 57.9 kg Jonny Torres MD Work Phone: [facility] 07-20-2024 11:58-0500 Diastolic blood pressure 64 mm[Hg] Jonny Torres MD Work Phone: [facility] 07-20-2024 11:58-0500 Heart rate 80 /min Jonny Torres MD Work Phone: [facility] 07-20-2024 11:58-0500 Respiratory rate 16 /min Jonny Torres MD Work Phone: [facility] 07-20-2024 11:58-0500 SaO2% (BldA) [Mass fraction] 97 % Jonny Torres MD Work Phone: [facility] 07-20-2024 11:58-0500 Systolic blood pressure 112 mm[Hg] Jonny Torres MD Work Phone: [facility] 04-06-2024 14:58-0400 Body mass index (BMI) [Ratio] 23.06 kg/m2 Jonny Torres MD Work Phone: [facility] 04-06-2024 14:58-0400 Body temperature 98.49 [degF] Jonny Torres MD Work Phone: [facility] 04-06-2024 14:58-0400 Body weight 57.2 kg Jonny Torres MD Work Phone: [facility] 04-06-2024 14:58-0400 Diastolic blood pressure 78 mm[Hg] Jonny Torres MD Work Phone: [facility] 04-06-2024 14:58-0400 Heart rate 76 /min Jonny Torres MD Work Phone: [facility] 04-06-2024 14:58-0400 Respiratory rate 18 /min Jonny Torres MD Work Phone: [facility] 04-06-2024 14:58-0400 SaO2% (BldA) [Mass fraction] 96 % Jonny Torres MD Work Phone: [facility] 04-06-2024 14:58-0400 Systolic blood pressure 122 mm[Hg] Jonny Torres MD Work Phone: [facility] 03-26-2024 11:16-0400 Body mass index (BMI) [Ratio] 22.5 kg/m2 Yeimi Philip APRN.ASSOCIATE PROPERTY MANAGER Work Phone: [facility] 03-26-2024 11:16-0400 Body temperature 98.29 [degF] Yeimi Philip APRN.ASSOCIATE PROPERTY MANAGER Work Phone: [facility] 03-26-2024 11:16-0400 Body weight 55.79 kg Yeimi Philip APRN.ASSOCIATE PROPERTY MANAGER Work Phone: [facility] 03-26-2024 11:16-0400 Diastolic blood pressure 96 mm[Hg] Yeimi Philip SCIENTIST ENGINEER.ASSOCIATE PROPERTY MANAGER Work Phone: [facility] 03-26-2024 11:16-0400 Heart rate 92 /min Yeimi Philip SCIENTIST ENGINEER.ASSOCIATE PROPERTY MANAGER Work Phone: [facility] 03-26-2024 11:16-0400 Respiratory rate 18 /min Yeimi Philip SCIENTIST ENGINEER.ASSOCIATE PROPERTY MANAGER Work Phone: [facility] 03-26-2024 11:16-0400 SaO2% (BldA) [Mass fraction] 97 % Yeimi Philip SCIENTIST ENGINEER.ASSOCIATE PROPERTY MANAGER Work Phone: [facility] 03-26-2024 11:16-0400 Systolic blood pressure 181 mm[Hg] Yeimi Philip SCIENTIST ENGINEER.ASSOCIATE PROPERTY MANAGER Work Phone: [facility] 02-16-2024 17:45-0400 Body mass index (BMI) [Ratio] 22.64 kg/m2 Jonny Torres MD Work Phone: [facility] 02-16-2024 17:45-0400 Body temperature 98.2 [degF] Jonny Torres MD Work Phone: [facility] 02-16-2024 17:45-0400 Body weight 56.16 kg Jonny Torres MD Work Phone: [facility] 02-16-2024 17:45-0400 Diastolic blood pressure 74 mm[Hg] Jonny Torres MD Work Phone: [facility] 02-16-2024 17:45-0400 Heart rate 87 /min Jonny Torres MD Work Phone: [facility] 02-16-2024 17:45-0400 Respiratory rate 18 /min Jonny Torres MD Work Phone: [facility] 02-16-2024 17:45-0400 SaO2% (BldA) [Mass fraction] 97 % Jonny Torres MD Work Phone: [facility] 02-16-2024 17:45-0400 Systolic blood pressure 128 mm[Hg] Jonny Torres MD Work Phone: [facility] 10-01-2023 11:57-0500 Body weight 57.61 kg Misael Lara SCIENTIST ENGINEER.4TH GRADE TEACHER Work Phone: [facility] 10-01-2023 11:57-0500 Diastolic blood pressure 60 mm[Hg] Misael Lara SCIENTIST ENGINEER.4TH GRADE TEACHER Work Phone: [facility] 10-01-2023 11:57-0500 Heart rate 78 /min Misael Lara SCIENTIST ENGINEER.4TH GRADE TEACHER Work Phone: [facility] 10-01-2023 11:57-0500 Respiratory rate 16 /min Misael Lara SCIENTIST ENGINEER.4TH GRADE TEACHER Work Phone: [facility] 10-01-2023 11:57-0500 SaO2% (BldA) [Mass fraction] 96 % Misael Lara SCIENTIST ENGINEER.4TH GRADE TEACHER Work Phone: [facility] 10-01-2023 11:57-0500 Systolic blood pressure 130 mm[Hg] Misael Lara SCIENTIST ENGINEER.4TH GRADE TEACHER Work Phone: [facility] 09-24-2023 14:45-0500 Body temperature 98.2 [degF] [facility] 09-24-2023 14:45-0500 Diastolic blood pressure 67 mm[Hg] [facility] 09-24-2023 14:45-0500 Heart rate 84 /min [facility] 09-24-2023 14:45-0500 Respiratory rate 17 /min [facility] 09-24-2023 14:45-0500 SaO2% (BldA) [Mass fraction] 98 % [facility] 09-24-2023 14:45-0500 Systolic blood pressure 144 mm[Hg] [facility] 09-22-2023 09:47-0500 Body mass index (BMI) [Ratio] 22.5 kg/m2 [facility] 09-22-2023 09:47-0500 Body weight 57.65 kg [facility] 09-16-2023 15:05-0500 Body height 159.99 cm [facility] 09-11-2023 14:52-0500 Body height 158.8 cm Crissy Luu MD Work Phone: [facility] 09-11-2023 14:52-0500 Body mass index (BMI) [Ratio] 22.5 kg/m2 Crissy Luu MD Work Phone: [facility] 09-11-2023 14:52-0500 Body weight 56.7 kg Crissy Luu MD Work Phone: [facility] 08-29-2023 20:00-0500 Body temperature 98.8 [degF] [facility] 08-29-2023 20:00-0500 Diastolic blood pressure 63 mm[Hg] [facility] 08-29-2023 20:00-0500 Heart rate 99 /min [facility] 08-29-2023 20:00-0500 Respiratory rate 16 /min [facility] 08-29-2023 20:00-0500 SaO2% (BldA) [Mass fraction] 96 % [facility] 08-29-2023 20:00-0500 Systolic blood pressure 157 mm[Hg] [facility] 08-28-2023 10:56-0500 Respiratory rate 14 /min Patti Beck MD Work Phone: [facility] 08-28-2023 08:07-0500 Body temperature 98.29 [degF] Patti Beck MD Work Phone: [facility] 08-28-2023 08:07-0500 Diastolic blood pressure 67 mm[Hg] Patti Beck MD Work Phone: [facility] 08-28-2023 08:07-0500 Heart rate 93 /min Patti Beck MD Work Phone: [facility] 08-28-2023 08:07-0500 SaO2% (BldA) [Mass fraction] 94 % Patti Beck MD Work Phone: [facility] 08-28-2023 08:07-0500 Systolic blood pressure 122 mm[Hg] Patti Beck MD Work Phone: [facility] 08-21-2023 18:00-0500 Body height 152.4 cm Patti Beck MD Work Phone: [facility] 08-21-2023 18:00-0500 Body mass index (BMI) [Ratio] 25 kg/m2 Patti Beck MD Work Phone: [facility] 08-21-2023 18:00-0500 Body weight 58.06 kg Patti Beck MD Work Phone: [facility] 07-20-2023 10:50-0500 Body height 157.5 cm Jonny Torres MD Work Phone: [facility] 07-20-2023 10:50-0500 Body temperature 99.19 [degF] Jonny Torres MD Work Phone: [facility] 07-20-2023 10:50-0500 Body weight 57.15 kg Jonny Torres MD Work Phone: [facility] 07-20-2023 10:50-0500 Diastolic blood pressure 68 mm[Hg] Jonny Torres MD Work Phone: [facility] 07-20-2023 10:50-0500 Heart rate 75 /min Jonny Torres MD Work Phone: [facility] 07-20-2023 10:50-0500 Respiratory rate 12 /min Jonny Torres MD Work Phone: [facility] 07-20-2023 10:50-0500 SaO2% (BldA) [Mass fraction] 98 % Jonny Torres MD Work Phone: [facility] 07-20-2023 10:50-0500 Systolic blood pressure 122 mm[Hg] Jonny Torres MD Work Phone: [facility] 01-12-2023 15:26-0400 Body temperature 98.71 [degF] Jonny Torres MD Work Phone: [facility] 01-12-2023 15:26-0400 Body weight 55.34 kg Jonny Torres MD Work Phone: [facility] 01-12-2023 15:26-0400 Diastolic blood pressure 72 mm[Hg] Jonny Torres MD Work Phone: [facility] 01-12-2023 15:26-0400 Heart rate 72 /min Jonny Torres MD Work Phone: [facility] 01-12-2023 15:26-0400 Respiratory rate 18 /min Jonny Torres MD Work Phone: [facility] 01-12-2023 15:26-0400 SaO2% (BldA) [Mass fraction] 99 % Jonny Torres MD Work Phone: [facility] 01-12-2023 15:26-0400 Systolic blood pressure 142 mm[Hg] Jonny Torres MD Work Phone: [facility] 07-07-2022 14:55-0500 Body temperature 98.01 [degF] Treatment [facility] Work Phone: [facility] 07-07-2022 14:55-0500 Diastolic blood pressure 72 mm[Hg] [facility] Work Phone: [facility] 07-07-2022 14:55-0500 Heart rate 87 /min [facility] Work Phone: [facility] 07-07-2022 14:55-0500 Systolic blood pressure 138 mm[Hg] [facility] Work Phone: [facility] 06-17-2022 11:49-0500 Diastolic blood pressure 67 mm[Hg] Orestes Jackson MD Work Phone: [facility] 06-17-2022 11:49-0500 Heart rate 72 /min Orestes Jackson MD Work Phone: [facility] 06-17-2022 11:49-0500 Respiratory rate 16 /min Orestes Jackson MD Work Phone: [facility] 06-17-2022 11:49-0500 SaO2% (BldA) [Mass fraction] 97 % Orestes Jackson MD Work Phone: [facility] 06-17-2022 11:49-0500 Systolic blood pressure 155 mm[Hg] Orestes Jackson MD Work Phone: [facility] 06-17-2022 09:17-0500 Body temperature 97.59 [degF] Orestes Jackson MD Work Phone: [facility] 06-17-2022 09:17-0500 Body weight 56.7 kg Orestes Jackson MD Work Phone: [facility] 05-23-2022 14:54-0400 Body weight 56.7 kg Jonny Torres MD Work Phone: [facility] 05-23-2022 14:54-0400 Diastolic blood pressure 78 mm[Hg] Jonny Torres MD Work Phone: [facility] 05-23-2022 14:54-0400 Heart rate 81 /min Jonny Torres MD Work Phone: [facility] 05-23-2022 14:54-0400 SaO2% (BldA) [Mass fraction] 97 % Jonny Torres MD Work Phone: [facility] 05-23-2022 14:54-0400 Systolic blood pressure 142 mm[Hg] Jonny Torres MD Work Phone: [facility] 04-08-2022 14:47-0400 Body height 157.5 cm Desiree Sal PA-C Work Phone: [facility] 04-08-2022 14:47-0400 Body temperature 98.01 [degF] Desiree Kilbourne PA-C Work Phone: [facility] 04-08-2022 14:47-0400 Body weight 56.25 kg Desiree Kilbourne PA-C Work Phone: [facility] 04-08-2022 14:47-0400 Diastolic blood pressure 62 mm[Hg] Desiree Kilbourne PA-C Work Phone: [facility] 04-08-2022 14:47-0400 Heart rate 87 /min Desiree Damonf PA-C Work Phone: [facility] 04-08-2022 14:47-0400 SaO2% (BldA) [Mass fraction] 97 % Desiree Damonf PA-C Work Phone: [facility] 04-08-2022 14:47-0400 Systolic blood pressure 132 mm[Hg] Desiree Damonf PA-C Work Phone: [facility] 01-14-2022 13:38-0400 Body weight 58.06 kg Misael Lara SCIENTIST ENGINEER.4TH GRADE TEACHER Work Phone: [facility] 01-14-2022 13:38-0400 Diastolic blood pressure 82 mm[Hg] Misael Lara SCIENTIST ENGINEER.4TH GRADE TEACHER Work Phone: [facility] 01-14-2022 13:38-0400 Heart rate 84 /min Misael Lara SCIENTIST ENGINEER.4TH GRADE TEACHER Work Phone: [facility] 01-14-2022 13:38-0400 Respiratory rate 16 /min Misael Lara SCIENTIST ENGINEER.4TH GRADE TEACHER Work Phone: [facility] 01-14-2022 13:38-0400 Systolic blood pressure 136 mm[Hg] Misael Lara SCIENTIST ENGINEER.4TH GRADE TEACHER Work Phone: [facility] 12-03-2021 14:01-0400 Body temperature 97.81 [degF] Annie Abebe SCIENTIST ENGINEER.ASSOCIATE PROPERTY MANAGER Work Phone: [facility] 12-03-2021 14:01-0400 Body weight 59.24 kg Annie Abebe SCIENTIST ENGINEER.ASSOCIATE PROPERTY MANAGER Work Phone: [facility] 12-03-2021 14:01-0400 Diastolic blood pressure 78 mm[Hg] Annie Abebe SCIENTIST ENGINEER.ASSOCIATE PROPERTY MANAGER Work Phone: [facility] 12-03-2021 14:01-0400 Heart rate 88 /min Annie Abebe SCIENTIST ENGINEER.ASSOCIATE PROPERTY MANAGER Work Phone: [facility] 12-03-2021 14:01-0400 Respiratory rate 16 /min Annie Abebe SCIENTIST ENGINEER.ASSOCIATE PROPERTY MANAGER Work Phone: [facility] 12-03-2021 14:01-0400 SaO2% (BldA) [Mass fraction] 99 % Annie Reynags SCIENTIST ENGINEER.ASSOCIATE PROPERTY MANAGER Work Phone: [facility] 12-03-2021 14:01-0400 Systolic blood pressure 126 mm[Hg] Annie Abebe SCIENTIST ENGINEER.ASSOCIATE PROPERTY MANAGER Work Phone: [facility] 11-18-2021 16:51-0400 Body weight 61.69 kg Jonny Torres MD Work Phone: [facility] 11-18-2021 16:51-0400 Diastolic blood pressure 82 mm[Hg] Jonny Torres MD Work Phone: [facility] 11-18-2021 16:51-0400 Heart rate 84 /min Jonny Torres MD Work Phone: [facility] 11-18-2021 16:51-0400 Systolic blood pressure 128 mm[Hg] Jonny Torres MD Work Phone: [facility] Encounters Encounter Date Encounter Type Care Provider Facility Start: 05-29-2025 ambulatory Jonny Torres [facility] y:[facility] Start: 05-05-2025 End: 05-05-[address] Vanessa Stern MD -[facility] Work Phone: Start: 05-05-2025 End: 05-05-[address] Jonny Torres MD Work Phone: -[facility] Start: 04-18-2025 End: 04-18-2025 Patient encounter procedure Sofia ZAMUDIOC -[facility] Work Phone: Start: 04-18-2025 End: 04-18-[address] Jonny Torres MD Work Phone: -[facility] Start: 04-13-2025 End: 04-13-2025 Patient encounter procedure Ramone Dorman MD Work Phone: Endocrinology Comment on above: Age-related osteopor osis without current pathological fracture (Primary Dx) Start: 04-13-2025 End: 04-13-2025 ambulatory [facility] Facility:[facility] Start: 04-11-2025 End: 04-11-2025 Patient encounter procedure Sofia MICHEL -[facility] Work Phone: Start: 04-11-2025 End: 04-11-[address] Jonny Torres MD Work Phone: -[facility] Start: 04-07-2025 End: 04-07-2025 ambulatory [facility] Facility:[facility] Start: 04-06-2025 End: 04-06-2025 Patient encounter procedure Ramone Dorman MD Work Phone: Endocrinology Comment on above: Age-related osteopor osis with current pathological fracture, sequela (Primary Dx); Vitamin D deficiency Start: 04-06-2025 End: 04-06-2025 ambulatory [facility] Facility:[facility] Start: 04-04-2025 End: 04-04-2025 Patient encounter procedure Sofia MICHEL -[facility] Work Phone: Start: 04-04-2025 End: 04-04-[address] Jonny Torres MD Work Phone: -[facility] Start: 04-03-2025 End: 04-03-2025 ambulatory Misael Lara APRN.4TH GRADE TEACHER Work Phone: [facility] [place] Start: 04-03-2025 End: 04-03-2025 Patient encounter procedure Misael Lara SCIENTIST ENGINEER.4TH GRADE TEACHER Work Phone: [facility] [place] Comment on above: Consult with Urologi st Start: 04-03-2025 End: 04-03-2025 Telephone encounter Misael Lara APRN.4TH GRADE TEACHER Work Phone: [facility] [place] Start: 03-30-2025 End: 03-30-2025 [facility] Facility:[facility] Start: 03-13-2025 End: 03-13-2025 Telephone encounter Jonny Torres MD Work Phone: [facility] [place] Comment on above: Patient Update Start: 03-13-2025 End: 03-13-2025 [facility] Facility:[facility] Start: 03-02-2025 End: 03-02-2025 Patient encounter procedure Sofia Yoon LEAD DESIGNER-C -[facility] Work Phone: Start: 03-02-2025 End: 03-02-[address] Jonny Torres MD Work Phone: -[facility] Start: 02-26-2025 End: 03-07-2025 ambulatory Jonny Torres MD Work Phone: [facility] [place] Comment on above: Gabapentin Start: 02-23-2025 End: 02-25-2025 Follow-up encounter Yissel Mayorga APRN.ASSOCIATE PROPERTY MANAGER Work Phone: Telemedicine Comment on above: Urine cx results and pt question Start: 02-23-2025 End: 02-23-2025 Telephone encounter Kenny Pandey APRN.ASSOCIATE PROPERTY MANAGER Work Phone: [facility] [place] Start: 02-23-2025 End: 02-23-2025 ambulatory JONNY Tatiana TORRES Facility:[facility] Start: 02-23-2025 End: 02-23-2025 Telemedicine consultation with patient Victoriano Smith ASSOCIATE PROPERTY MANAGER Work Phone: Telemedicine Comment on above: Recurrent UTI (urina ry tract infection) (Primary Dx) Start: 02-23-2025 End: 02-23-2025 ambulatory JONNY TORRES Facility:[facility] Start: 02-15-2025 End: 02-15-2025 Patient encounter procedure Jonny Torres MD Work Phone: [facility] [place] Comment on above: Dense breast tissue on mammogram, unspecified type (Primary Dx); Age-related osteoporosis with current pathological fracture, sequela; Vitamin D deficiency; Hyperlipidemia, unspecified hyperlipidemia type; Primary osteoarthritis of right knee; Contusion of right knee, sequela; Burning sensation of feet; Encounter for long-term current use of medication Start: 02-15-2025 End: 02-15-2025 ambulatory JONNY TORRES Facility:[facility] Start: 02-14-2025 End: 02-14-[address] Braulio Prince MD -[facility] Start: 02-14-2025 End: 02-14-[address] Jonny Torres MD Work Phone: -[facility] Start: 02-09-2025 End: 02-09-2025 ambulatory JONNY TORRES Facility:[facility] Start: 02-03-2025 End: 02-03-[address] Jonny Torres MD Work Phone: -[facility] Start: 02-03-2025 End: 02-03-2025 Patient encounter procedure Ray STONER -[facility] Work Phone: Start: 02-03-2025 End: 02-03-2025 ambulatory Ray STONER Facility:[facility] Start: 01-20-2025 End: 01-24-2025 Refill Misael Lara APRN.CNS Work Phone: [facility] [place] Comment on above: Refill Request Start: 01-12-2025 End: 01-12-2025 Patient encounter procedure Lily STONER -[facility] Work Phone: Start: 01-12-2025 End: 01-12-[address] Jonny Torres MD Work Phone: [facility] Work Phone: Start: 01-06-2025 ambulatory Jonny Horner y:[facility] Start: 12-23-2024 End: 12-23-2024 Patient encounter procedure Lily STONER -[facility] Work Phone: Start: 12-23-2024 End: 12-23-2024 ambulatory Lily Esquivel Facility:[facility] Start: 11-25-2024 End: 01-25-2025 Follow-up encounter Misael Lara APRN.4TH GRADE TEACHER Work Phone: [facility] [place] Start: 11-24-2024 ambulatory MISAEL LARA Facility:[facility] Start: 11-24-2024 End: 11-24-2024 Subsequent hospital visit by physician Jessica Green (1.5t) [facility] [place] Comment on above: Breast asymmetry [N6 4.89] Start: 11-10-2024 End: 11-10-2024 Patient encounter procedure Lily Esquivel MA -[facility] Work Phone: Start: 11-10-2024 End: 11-10-2024 ambulatory Jonny Torres [facility] Start: 10-31-2024 End: 11-04-2024 Follow-up encounter Kassie Bales APRN.ASSOCIATE PROPERTY MANAGER Work Phone: [facility] Comment on above: Results Start: 10-27-2024 End: 10-27-2024 ambulatory KASSIE BALES Facility:[facility] Start: 10-27-2024 End: 10-27-2024 Office outpatient visit 15 minutes Kassie Bales SCIENTIST ENGINEER.ASSOCIATE PROPERTY MANAGER Work Phone: [facility] Comment on above: Dysuria (Primary Dx) Start: 10-25-2024 End: 10-27-2024 ambulatory Misael Lara APRN.4TH GRADE TEACHER Work Phone: [facility] [place] Comment on above: Mammogram restlt Start: 10-17-2024 End: 12-17-2024 Follow-up encounter Antonio Jacinto APRN.ASSOCIATE PROPERTY MANAGER Work Phone: [facility] Start: 10-16-2024 End: 10-16-2024 ambulatory JONNY D TALAMPAS Facility:[facility] Start: 10-16-2024 End: 10-16-2024 Patient encounter procedure Antonio Jacinto APRN.ASSOCIATE PROPERTY MANAGER Work Phone: [facility] Comment on above: Urinary frequency (P rimary Dx); Urinary tract infection with hematuria, site unspecified Start: 10-11-2024 End: 12-11-2024 Follow-up encounter Misael Lara APRN.4TH GRADE TEACHER Work Phone: [facility] [place] Start: 09-27-2024 End: 09-27-2024 ambulatory MISAELLenore LARA Facility:[facility] Start: 09-27-2024 End: 09-27-2024 Office outpatient visit 25 minutes Misael Lara APRN.4TH GRADE TEACHER Work Phone: [facility] [place] Comment on above: Breast asymmetry (Pr imary Dx); Other general symptoms and signs Start: 09-22-2024 End: 09-22-2024 Follow-up encounter Kenny Pandey APRN.ASSOCIATE PROPERTY MANAGER Work Phone: [facility] [place] Start: 09-20-2024 End: 09-20-2024 [facility] Facility:[facility] Start: 09-20-2024 End: 09-20-2024 Subsequent hospital visit by physician Diagnostic Mammo [facility] Comment on above: Concern about appear ance of breast [R46.89] Start: 09-09-2024 End: 09-09-2024 [facility] Facility:[facility] Start: 09-09-2024 End: 09-09-2024 Patient encounter procedure Kenny Pandey APRN.ASSOCIATE PROPERTY MANAGER Work Phone: [facility] [place] Comment on above: Concern about appear ance of breast (Primary Dx); Mass of lower inner quadrant of left breast Start: 08-30-2024 End: 09-09-2024 ambulatory Jonny Torres MD Work Phone: [facility] [place] Comment on above: Mammogram Start: 08-15-2024 End: 08-15-2024 Office outpatient visit 15 minutes Karma Butts ASSOCIATE PROPERTY MANAGER Work Phone: [facility] Comment on above: Closed displaced obl ique fracture of shaft of right femur with routine healing, subsequent encounter (Primary Dx); History of open reduction and internal fixation (ORIF) procedure Start: 08-15-2024 End: 08-19-2024 ambulatory PHYSICIAN NO [facility] Start: 07-20-2024 End: 07-20-2024 ambulatory JONNY TORRES Facility:[facility] Start: 07-20-2024 End: 07-20-2024 Office outpatient visit 25 minutes Jonny Torres MD Work Phone: [facility] [place] Comment on above: Burning sensation of feet (Primary Dx); Recurrent major depressive disorder, in full remission (HCC); Age-related osteoporosis with current pathological fracture, sequela; Vitamin D deficiency; Hypokalemia; Hyperlipidemia, unspecified hyperlipidemia type; Pain of left hip; Encounter for immunization; Encounter for long-term current use of medication Start: 07-15-2024 End: 07-15-2024 ambulatory JONNY TORRES Facility:[facility] Start: 06-24-2024 End: 06-27-2024 Refill Misael Lara APRN.4TH GRADE TEACHER Work Phone: [facility] [place] Comment on above: Refill Request Start: 06-21-2024 End: 06-21-2024 Orders Only Yulia Haywood APRN.ASSOCIATE PROPERTY MANAGER Work Phone: [facility] [place] Start: 04-06-2024 End: 04-06-2024 Office outpatient visit 15 minutes Jonny Torres MD Work Phone: [facility] [place] Comment on above: Gross hematuria (Yudelka rosalina Dx); Urinary tract infection with hematuria, site unspecified; Dizziness; Vitamin D deficiency Start: 03-26-2024 End: 03-26-2024 Patient encounter procedure Yeimi Philip APRN.ASSOCIATE PROPERTY MANAGER Work Phone: [place] [facility] Comment on above: Burning with urinati on (Primary Dx); Urinary tract infection with hematuria, site unspecified Start: 02-19-2024 End: 02-19-2024 Office outpatient visit 10 minutes Crissy Luu MD Work Phone: [facility] Comment on above: Closed displaced obl ique fracture of shaft of right femur with routine healing, subsequent encounter (Primary Dx) Start: 02-19-2024 End: 02-23-2024 ambulatory CRISSY LUU [facility] Ambulatory Start: 02-16-2024 End: 02-16-2024 Office outpatient visit 25 minutes Jonny Torres MD Work Phone: [facility] [place] Comment on above: Hyperlipidemia, unsp ecified hyperlipidemia type (Primary Dx); Hypokalemia; Vitamin D deficiency; IFG (impaired fasting glucose); Closed fracture of right femur with routine healing, unspecified fracture morphology, unspecified portion of femur, subsequent encounter; Age-related osteoporosis without current pathological fracture; Elevated alkaline phosphatase level Start: 02-02-2024 Refill Jonny colmenares MD Work Phone: [facility] [place] Comment on above: Refill Request Start: 01-19-2024 ambulatory Jonny colmenares MD Work Phone: [facility] [place] Comment on above: Pre visit lab work Start: 01-17-2024 Refill Yulia Haywood APRN.CNP Work Phone: [facility] [place] Comment on above: Refill Request Start: 11-20-2023 End: 11-20-2023 Postop follow up visit related to original px Crissy Luu MD Work Phone: [facility] Comment on above: Closed displaced obl ique fracture of shaft of right femur with routine healing, subsequent encounter (Primary Dx) Start: 11-20-2023 End: 11-24-2023 ambulatory CRISSY LUU [facility] Start: 10-09-2023 End: 10-09-2023 Postop follow up visit related to original px Crissy Luu MD Work Phone: [facility] Comment on above: Closed displaced obl ique fracture of shaft of right femur with routine healing, subsequent encounter (Primary Dx) Start: 10-09-2023 End: 10-13-2023 Orders Only Bekah Rodrigez LPN [facility] Comment on above: Closed displaced obl ique fracture of shaft of right femur with routine healing, subsequent encounter (Primary Dx) Start: 10-01-2023 Telephone encounter Jonny juares MD Work Phone: [facility] [place] Comment on above: [facility] Start: 10-01-2023 End: 10-01-2023 Office outpatient visit 25 minutes Misael Lara APRN.CNS Work Phone: [facility] [place] Comment on above: Closed fracture of r ight femur with routine healing, unspecified fracture morphology, unspecified portion of femur, subsequent encounter (Primary Dx); Hypokalemia; Burning sensation of feet; Debility Start: 09-21-2023 Telephone encounter Jonny juares MD Work Phone: [facility] [place] Comment on above: Home Health Orders Start: 09-11-2023 End: 09-11-2023 Postop follow up visit related to original px Crissy Luu MD Work Phone: [facility] Comment on above: Closed displaced obl ique fracture of shaft of right femur with routine healing, subsequent encounter (Primary Dx) Start: 09-11-2023 End: 09-15-2023 ambulatory PHYSICIAN [facility] Ambulato [facility] Start: 08-29-2023 End: 08-29-2023 Patient encounter procedure [facility] 3 Outp Start: 08-28-2023 End: 09-25-2023 Evaluation and management of inpatient [facility] Start: 08-25-2023 Evaluation and manag ement of inpatient PHYSICIAN [facility] Start: 08-21-2023 End: 08-28-2023 Evaluation and management of inpatient [facility] Start: 08-21-2023 End: 08-25-2023 Emergency department patient visit [facility] Start: 08-21-2023 End: 08-28-2023 Evaluation and management of inpatient Joyce Espinosa MD Work Phone: [facility] Start: 07-20-2023 End: 07-20-2023 Office outpatient visit 25 minutes Jonny Torres MD Work Phone: [facility] [place] Comment on above: Age-related osteopor osis without current pathological fracture (Primary Dx); Recurrent major depressive disorder, in full remission (HCC); Hyperlipidemia, unspecified hyperlipidemia type; Vitamin D deficiency; Encounter for long-term current use of medication; Encounter for immunization; Asymptomatic postmenopausal status Start: 07-13-2023 Telephone encounter Financial Navigator Manny Work Phone: Hematology/Oncology Comment on above: Benefits Investigati on Start: 07-07-2023 Telephone encounter Jonny juares MD Work Phone: [facility] [place] Comment on above: Reclast Infusion-Ord er Request Start: 06-23-2023 ambulatory Jonny colmenares MD Work Phone: [facility] [place] Comment on above: Reclast scheduling Start: 06-07-2023 Refill Jonny colmenares MD Work Phone: [facility] [place] Comment on above: Refill Request Start: 02-23-2023 Refill Yulia Chastity SCIENTIST ENGINEER.ASSOCIATE PROPERTY MANAGER Work Phone: [facility] [place] Comment on above: Refill Request Start: 02-22-2023 Refill Yulia Chastity SCIENTIST ENGINEER.ASSOCIATE PROPERTY MANAGER Work Phone: [facility] [place] Comment on above: Refill Request Start: 01-12-2023 End: 01-12-2023 Office outpatient visit 25 minutes Jonny Torres MD Work Phone: [facility] [place] Comment on above: Recurrent major depr essive disorder, in partial remission (HCC) [F33.41 (ICD-10-CM)] (Primary Dx); Vitamin D deficiency; Loss of taste; Leg cramping; Hyperlipidemia, unspecified hyperlipidemia type; Gastroesophageal reflux disease without esophagitis; Encounter for long-term current use of medication; 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, subsequent encounter Start: 12-17-2022 Refill Jonny colmenares MD Work Phone: [facility] [place] Comment on above: Refill Request Start: 12-01-2022 Refill Jonny colmenares MD Work Phone: [facility] [place] Comment on above: Refill Request Start: 09-01-2022 Refill Jonny colmenares MD Work Phone: [facility] [place] Comment on above: Refill Request (need s today) Start: 07-07-2022 End: 07-07-2022 ambulatory Treatment Rm 9 [facility] Work Phone: Hematology/Oncology Comment on above: Iron deficiency anem ia, unspecified iron deficiency anemia type (Primary Dx); 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, subsequent encounter Start: 07-07-2022 Telephone encounter Abel wilcox DO Work Phone: Hematology/Oncology Comment on above: Additional Labs Start: 07-03-2022 ambulatory Jonny colmenares MD Work Phone: [facility] [place] Comment on above: Medication issue re Cymbalta Start: 06-27-2022 ambulatory Desiree Good Work Phone: [facility] Start: 06-27-2022 Patient encounter procedure Desiree Huang PA-C Work Phone: General Surgery Comment on above: Missed appointment Start: 06-17-2022 End: 06-17-2022 Subsequent hospital visit by physician Orestes Jackson MD Work Phone: Ambulatory Surgery Comment on above: Generalized abdomina l pain [R10.84] Start: 05-31-2022 ambulatory Jonny colmenares MD Work Phone: Internal [facility] [place] Comment on above: Scheduling Reclast I nfusion Start: 05-23-2022 End: 05-23-2022 Office outpatient visit 15 minutes Jonny Torres MD Work Phone: [facility] [place] Comment on above: Age-related osteopor osis with current pathological fracture with delayed healing, subsequent encounter (Primary Dx); Recurrent major depressive disorder, in remission (HCC); Vitamin D deficiency; Encounter for immunization Start: 04-08-2022 End: 04-08-2022 Patient encounter procedure Desiree Huang PA-C Work Phone: General Surgery Comment on above: Abdominal discomfort , generalized (Primary Dx); Gastroesophageal reflux disease without esophagitis; Constipation, unspecified constipation type; Decreased energy; Change in bowel habits Start: 03-20-2022 Orders Only Misael Lara SCIENTIST ENGINEER.4TH GRADE TEACHER Work Phone: [facility] [place] Comment on above: Gastroesophageal ref lux disease without esophagitis (Primary Dx); Constipation, unspecified constipation type Start: 02-19-2022 End: 02-19-2022 ambulatory Janett Peacock SCIENTIST ENGINEER.ASSOCIATE PROPERTY MANAGER Work Phone: Family Medicine [place] Comment on above: COVID (Primary Dx) Start: 02-19-2022 End: 02-19-2022 Telemedicine consultation with patient Janett Peacock APRN.ASSOCIATE PROPERTY MANAGER Work Phone: [facility] [place] Start: 01-31-2022 ambulatory Misael Lara SCIENTIST ENGINEER.4TH GRADE TEACHER Work Phone: [facility] [place] Comment on above: What is next? Start: 01-16-2022 End: 01-16-2022 Subsequent hospital visit by physician [facility] Work Phone: Radiology Comment on above: RUQ abdominal pain [ R10.11] Start: 01-14-2022 End: 01-14-2022 Patient encounter procedure Misael Lara SCIENTIST ENGINEER.4TH GRADE TEACHER Work Phone: Internal Medicine [place] Comment on above: RUQ abdominal pain ( Primary Dx); Gastroesophageal reflux disease without esophagitis Start: 12-24-2021 End: 12-24-2021 Patient encounter procedure [facility], Specimen Start: 12-16-2021 ambulatory Jonny colmenares MD Work Phone: [facility] [place] Comment on above: Fx of T [facility] Start: 12-03-2021 End: 12-03-2021 Subsequent hospital visit by physician [facility] [place] Work Phone: Radiology Comment on above: Fall, initial encoun ter [W19.XXXA] Start: 12-03-2021 End: 12-03-2021 Patient encounter procedure Annie Abebe SCIENTIST ENGINEER.ASSOCIATE PROPERTY MANAGER Work Phone: [facility] Comment on above: Fall, initial encoun ter (Primary Dx); Upper back pain; Acute low back pain, unspecified back pain laterality, unspecified whether sciatica present; Closed fracture of eleventh thoracic vertebra, unspecified fracture morphology, initial encounter (HCC) Start: 11-18-2021 End: 11-18-2021 Patient encounter procedure Jonny Torres MD Work Phone: [facility] [place] Comment on above: Vitamin D deficiency (Primary Dx); Gastroesophageal reflux disease without esophagitis; Hyperlipidemia, unspecified hyperlipidemia type; Recurrent major depressive disorder, in partial remission (HCC); Other fatigue; Age-related osteoporosis without current pathological fracture; Loss of smell; Loss of taste; Encounter for long-term current use of medication Start: 11-14-2021 ambulatory Jonny colmenares MD Work Phone: Internal Medicine [place] Comment on above: Lab work Start: 05-08-2021 Telephone encounter Jonny juares MD Work Phone: Internal Medicine [place] Comment on above: Appointment (Reclast ) Start: 05-19-2017 End: 05-19-2017 Emergency department patient visit Subha Whiteside Facility:[facility] Procedures Date Procedure Procedure Detail Performing Clinician Start: 02-14-2025 Plain X-ray of femur Dr. Jonny Torres MD Work Phone: Start: 02-14-2025 Plain X-ray of tibia and fibula Dr. Jonny Torres MD Work Phone: Start: 02-14-2025 X-ray of knee, four or more views Dr. Allyssa Torres MD Work Phone: Start: 02-03-2025 X-ray of knee, four or more views Dr. Allyssa Torres MD Work Phone: Start: 01-12-2025 X-ray of thoracic and lumbar spine Dr. Maryse Torres MD Work Phone: Start: 12-23-2024 MRI of lumbar spine Dr. Jonny Torres MD Work Phone: Start: 11-24-2024 Mri breast without&with contrast w/cad bilateral Misael Lara SCIENTIST ENGINEER.4TH GRADE TEACHER Work Phone: Start: 11-10-2024 X-ray of lumbosacral spine Dr. Jonny drew MD Work Phone: Start: 11-10-[address] Jonny Torres MD Work Phone: Start: 10-27-2024 Urnls dip stick/tablet rgnt auto w/o microscopy Kassie Bales SCIENTIST ENGINEER.ASSOCIATE PROPERTY MANAGER Work Phone: Start: 10-16-2024 Urnls dip stick/tablet rgnt auto w/o microscopy Antonio Jacinto SCIENTIST ENGINEER.ASSOCIATE PROPERTY MANAGER Work Phone: Start: 09-20-2024 Us breast uni real time with image limited Kenny Pandey SCIENTIST ENGINEER.ASSOCIATE PROPERTY MANAGER Work Phone: Start: 09-20-2024 Digital breast tomosynthesis bilateral Kenny Pandey SCIENTIST ENGINEER.ASSOCIATE PROPERTY MANAGER Work Phone: Start: 09-21-2023 Viral antigen assay Start: 09-06-2023 Measurement of occult blood in stool specimen using immunoassay Start: 08-26-2023 Basic metabolic panel calcium total Gelacio heath Luu MD Work Phone: Start: 08-25-2023 Basic metabolic panel calcium total Gelacio heath Luu MD Work Phone: Start: 08-24-2023 Basic metabolic panel calcium total Gelacio heath Luu MD Work Phone: Start: 08-24-2023 Culture bacterial quanttative colony count urine Rosetta Carver ASSOCIATE PROPERTY MANAGER Work Phone: Start: 08-23-2023 RBC leukocytes reduced Emilia Tatum ASSOCIATE PROPERTY MANAGER Work Phone: Start: 08-23-2023 Blood count hematocrit Crissy Luu MD Work Phone: Start: 08-23-2023 End: 08-23-2023 Transfusion of red blood cells Emilia Tatum ASSOCIATE PROPERTY MANAGER Work Phone: Start: 08-23-2023 Basic metabolic panel calcium total Gelacio heath Luu MD Work Phone: Start: 08-22-2023 Urnls dip stick/tablet reagent auto microscopy Emilia Cindysam Tatum ASSOCIATE PROPERTY MANAGER Work Phone: Start: 08-22-2023 PROCEDURAL SEDATION Joyce Espinosa MD Work Phone: Start: 08-22-2023 Radiologic examination femur minimum 2 views Crissy Luu MD Work Phone: Start: 08-22-2023 End: 08-22-2023 OPEN REDUCTION INTERNAL FIXATION FEMUR Crissy Luu MD Work Phone: Start: 08-22-2023 Basic metabolic panel calcium total Fareed le R. Garduno ASSOCIATE PROPERTY MANAGER Work Phone: Start: 08-21-2023 Radiologic examination femur minimum 2 views Joyce Espinosa MD Work Phone: Start: 08-21-2023 ORTHOPEDIC INJURY TREATMENT Joyce Espinosa MD Work Phone: Start: 08-21-2023 Blood group typing Joyce Espinosa MD Work Phone: Start: 08-21-2023 Ct cervical spine w/o contrast material Anusha R. Garduno ASSOCIATE PROPERTY MANAGER Work Phone: Start: 08-21-2023 Ct head/brain w/o contrast material Fareed le R. Garduno ASSOCIATE PROPERTY MANAGER Work Phone: Start: 08-21-2023 End: 08-21-2023 Radiologic examination femur minimum 2 views Anusha R. Garduno ASSOCIATE PROPERTY MANAGER Work Phone: Start: 08-21-2023 Radiologic exam chest [...] Huang PA-C Work Phone: Start: 06-17-2022 Colonoscopy Jonyn Torres MD Work Phone: Start: 05-23-2022 INFLUENZA SEASONAL QUADRIVALENT HIGH DOSE AGE 65+ Jonny Torres MD Work Phone: Start: 01-16-2022 Us abdominal real time w/image limited Misael Lara SCIENTIST ENGINEER.4TH GRADE TEACHER Work Phone: Start: 12-03-2021 Radex spine lumbosacral 2/3 views Julia Abebe SCIENTIST ENGINEER.ASSOCIATE PROPERTY MANAGER Work Phone: Start: 12-03-2021 Radiologic exam chest 2 views Annie chavez SCIENTIST ENGINEER.ASSOCIATE PROPERTY MANAGER Work Phone: Plan of Treatment Date Care Activity Detail Author Start: 01-24-2035 Urine microalbumin profile DTaP,Tdap,Td Vaccine (3 - Td or Tdap) [facility] Start: 06-17-2032 Colonoscopy COLONOSCOPY [facility] Start: 06-17-2032 COLORECTAL CANCER SCREENING COLORECTAL CANCER SCREENING [facility] Start: 06-17-2032 Screening for malign ant neoplasm of colon [facility] Start: 04-07-2028 Diabetes Screening Diabetes Screenin [facility] Start: 02-10-2028 Diabetes Screening Diabetes Screenin g [facility] Start: 07-15-2027 Diabetes Screening Diabetes Screenin g [facility] Start: 04-06-2027 Diabetes Screening Diabetes Screenin g [facility] Start: 02-08-2027 Diabetes Screening Diabetes Screenin g [facility] Start: 11-17-2026 Diabetes Screening Diabetes Screenin g [facility] Start: 08-26-2026 Diabetes Screening Diabetes Screenin g [facility] Start: 06-12-2026 Diabetes Screening Diabetes Screenin g [facility] Start: 02-15-2026 Medicare Annual Wellness Visit Medicare Annual Wellness Visit [facility] Start: 10-27-2025 End: 11-26-2025 MR Breast WO and W contrast IV MRI DENSE BREAST LIMITED WO/W IVCON Radiology Routine Breast asymmetry Dense breast tissue on mammogram, unspecified type Encounter for breast cancer screening using non-mammogram modality Expected: 10/27/2025 (Approximate), Expires: 11/26/2025 [facility] Work Phone: Comment on above: Expected: 10/27/2025 (Approximate), Expires: 11/26/2025 Start: 08-17-2025 Screening for osteoporosis Bone Density Screening [facility] Start: 08-16-2025 End: 05-15-2026 BD DXA TRABECULAR BONE SCORE (TBS) BD DXA TRABECULAR BONE SCORE (TBS) Radiology Routine Age-related osteoporosis without current pathological fracture Expected: 08/16/2025, Expires: 05/15/2026 [facility] Comment on above: Expected: 08/16/2025 , Expires: 05/15/2026 Start: 08-16-2025 End: 05-15-2026 DXA Skeletal system.axial Views for bone density and vertebral fracture DXA-AXIAL SKELETON WITH VFA Radiology Routine Age-related osteoporosis without current pathological fracture Expected: 08/16/2025, Expires: 05/15/2026 [facility] Work Phone: Comment on above: Expected: 08/16/2025 , Expires: 05/15/2026 Start: 07-21-2025 End: 07-21-2025 Patient encounter procedure [facility] [place] Comment on above: est wellness medicare wellness Start: 07-07-2025 DIABETES SCREEN DIABETES SCREEN [facility] Start: 07-07-2025 Diabetes Screening Diabetes Screenin g [facility] Start: 06-24-2025 End: 09-23-2025 25-hydroxyvitamin D3 [Mass/volume] in Serum or Plasma VITAMIN D 25 HYDROXY Lab Routine Vitamin D deficiency Encounter for long-term current use of medication Expected: 06/24/2025 (Approximate), Expires: 09/23/2025 [facility] Comment on above: Expected: 06/24/2025 (Approximate), Expires: 09/23/2025 Start: 06-24-2025 End: 09-23-2025 CBC panel - Blood by Automated count COMPLETE BLOOD COUNT Lab Routine Hyperlipidemia, unspecified hyperlipidemia type Encounter for long-term current use of medication Expected: 06/24/2025 (Approximate), Expires: 09/23/2025 [facility] Comment on above: Expected: 06/24/2025 (Approximate), Expires: 09/23/2025 Start: 06-24-2025 End: 09-23-2025 Comprehensive metabolic 2000 panel - Serum or Plasma COMPREHENSIVE METABOLIC PANEL Lab Routine Hyperlipidemia, unspecified hyperlipidemia type Encounter for long-term current use of medication Expected: 06/24/2025 (Approximate), Expires: 09/23/2025 [facility] Comment on above: Expected: 06/24/2025 (Approximate), Expires: 09/23/2025 Start: 06-24-2025 End: 09-23-2025 Lipid 1996 panel - Serum or Plasma LIPID PANEL, FASTING Lab Routine Hyperlipidemia, unspecified hyperlipidemia type Encounter for long-term current use of medication Expected: 06/24/2025 (Approximate), Expires: 09/23/2025 [facility] Comment on above: Expected: 06/24/2025 (Approximate), Expires: 09/23/2025 Start: 06-24-2025 End: 09-23-2025 Magnesium [Mass/volume] in Serum or Plasma MAGNESIUM Lab Routine Encounter for long-term current use of medication Expected: 06/24/2025 (Approximate), Expires: 09/23/2025 [facility] Work Phone: Comment on above: Expected: 06/24/2025 (Approximate), Expires: 09/23/2025 Start: 04-10-2025 Influenza vaccination Influenza Vacc ine (#1) [facility] Start: 04-06-2025 End: 04-06-2025 Patient encounter procedure 04/06/2025 3:00 PM EDT Office Visit Endocrinology [address] [place] [address] Ramone Dorman MD [address] [place] [id number] Age-related osteoporosis with current pathological fracture, sequela [M80.00XS] Endocrinology Comment on above: Age-related osteopor osis with current pathological fracture, sequela [M80.00XS] Start: 04-06-2025 End: 07-06-2025 25-hydroxyvitamin D3 [Mass/volume] in Serum or Plasma VITAMIN D 25 HYDROXY Lab Routine Age-related osteoporosis with current pathological fracture, sequela Vitamin D deficiency Expected: 04/06/2025, Expires: 07/06/2025 [facility] Comment on above: Expected: 04/06/2025 , Expires: 07/06/2025 Start: 04-06-2025 End: 07-06-2025 ALK PHOS BONE SPEC ALK PHOS BONE SPEC Lab Routine Age-related osteoporosis with current pathological fracture, sequela Vitamin D deficiency Expected: 04/06/2025, Expires: 07/06/2025 [facility] Comment on above: Expected: 04/06/2025 , Expires: 07/06/2025 Start: 04-06-2025 End: 07-06-2025 Collagen crosslinked C-telopeptide [Mass/volume] in Serum or Plasma C TELOPEPTIDE, BETA Lab Routine Age-related osteoporosis with current pathological fracture, sequela Vitamin D deficiency Expected: 04/06/2025, Expires: 07/06/2025 [facility] Comment on above: Expected: 04/06/2025 , Expires: 07/06/2025 Start: 04-06-2025 End: 07-06-2025 Comprehensive metabolic 2000 panel - Serum or Plasma COMPREHENSIVE METABOLIC PANEL Lab Routine Age-related osteoporosis with current pathological fracture, sequela Vitamin D deficiency Expected: 04/06/2025, Expires: 07/06/2025 [facility] Work Phone: Comment on above: Expected: 04/06/2025 , Expires: 07/06/2025 Start: 04-06-2025 End: 07-06-2025 Magnesium [Mass/volume] in Serum or Plasma MAGNESIUM Lab Routine Age-related osteoporosis with current pathological fracture, sequela Vitamin D deficiency Expected: 04/06/2025, Expires: 07/06/2025 [facility] Comment on above: Expected: 04/06/2025 , Expires: 07/06/2025 Start: 04-06-2025 End: 07-06-2025 Osteocalcin [Mass/volume] in Serum or Plasma OSTEOCALCIN BLD Lab Routine Age-related osteoporosis with current pathological fracture, sequela Vitamin D deficiency Expected: 04/06/2025, Expires: 07/06/2025 [facility] Comment on above: Expected: 04/06/2025 , Expires: 07/06/2025 Start: 04-06-2025 End: 07-06-2025 [email or web address].[email or web address] [Mass/volume] in Serum or Plasma PTH INTACT Lab Routine Age-related osteoporosis with current pathological fracture, sequela Vitamin D deficiency Expected: 04/06/2025, Expires: 07/06/2025 [facility] Comment on above: Expected: 04/06/2025 , Expires: 07/06/2025 Start: 04-06-2025 End: 07-06-2025 Phosphate [Mass/volume] in Serum or Plasma PHOSPHORUS INORGANIC Lab Routine Age-related osteoporosis with current pathological fracture, sequela Vitamin D deficiency Expected: 04/06/2025, Expires: 07/06/2025 [facility] Comment on above: Expected: 04/06/2025 , Expires: 07/06/2025 Start: 03-28-2025 End: 03-28-2025 Patient encounter procedure Mammogram Comment on above: : Breast asymmetry [ N64.89] Start: 03-27-2025 End: 10-27-2025 MG Breast - bilateral Diagnostic JONA DIAGNOSTIC BILATERAL Radiology Routine Breast asymmetry Other general symptoms and signs Expected: 03/27/2025 (Approximate), Expires: 10/27/2025 [facility] Comment on above: Expected: 03/27/2025 (Approximate), Expires: 10/27/2025 Start: 03-27-2025 End: 10-27-2025 US Breast - left limited US BREAST LTD LEFT Radiology Routine Breast asymmetry Other general symptoms and signs Expected: 03/27/2025 (Approximate), Expires: 10/27/2025 [facility] Comment on above: Expected: 03/27/2025 (Approximate), Expires: 10/27/2025 Start: 03-14-2025 DIABETES SCREEN DIABETES SCREEN [facility] Start: 03-13-2025 End: 06-12-2025 Urinalysis complete panel - Urine [facility] Work Phone: Comment on above: Expected: 03/13/2025 , Expires: 06/12/2025 Start: 02-23-2025 End: 05-25-2025 Bacteria identified in Urine by Culture [facility] Comment on above: Expected: 02/23/2025 , Expires: 05/25/2025 Start: 02-23-2025 End: 05-25-2025 URINALYSIS, DIPSTICK ONLY [facility] Work Phone: Comment on above: Expected: 02/23/2025 , Expires: 05/25/2025 Start: 02-15-2025 End: 02-15-2025 Patient encounter procedure 02/15/2025 1:40 PM EDT Office Visit [facility] [place] [address] [place], [place] [id number] Jonny Torres MD [address] [place] [address] 6 month follow up [facility] [place] Comment on above: 6 month follow up Start: 02-14-2025 Plain X-ray of femur Femur Min 2 Vie ws [facility] Start: 02-14-2025 Plain X-ray of tibia and fibula Tibia & Fibula 2 Views [facility] Start: 02-14-2025 XR Femur 2 Views [facility] Start: 02-14-2025 XR Tibia and Fibula 2 Views [facility] Start: 02-14-2025 X-ray of knee, four or more views Knee 4 or More Views [facility] Start: 02-14-2025 XR Knee GE 4 Views [facility] Start: 01-12-2025 X-ray of thoracic an d lumbar spine Thoracolumbar 2 Views [facility] Start: 01-12-2025 XR Thoracic and lumb ar spine 2 Views [facility] Start: 01-12-2025 Patient referral [facility] Work Phone: Start: 12-18-2024 End: 03-19-2025 25-hydroxyvitamin D3 [Mass/volume] in Serum or Plasma VITAMIN D 25 HYDROXY Lab Routine Vitamin D deficiency Encounter for long-term current use of medication Expected: 12/18/2024 (Approximate), Expires: 03/19/2025 [facility] Comment on above: Expected: 12/18/2024 (Approximate), Expires: 03/19/2025 Start: 12-18-2024 End: 03-19-2025 CBC panel - Blood by Automated count COMPLETE BLOOD COUNT Lab Routine Encounter for long-term current use of medication Expected: 12/18/2024 (Approximate), Expires: 03/19/2025 [facility] Comment on above: Expected: 12/18/2024 (Approximate), Expires: 03/19/2025 Start: 12-18-2024 End: 03-19-2025 Comprehensive metabolic 2000 panel - Serum or Plasma COMPREHENSIVE METABOLIC PANEL Lab Routine Hypokalemia Encounter for long-term current use of medication Expected: 12/18/2024 (Approximate), Expires: 03/19/2025 [facility] Comment on above: Expected: 12/18/2024 (Approximate), Expires: 03/19/2025 Start: 12-18-2024 End: 03-19-2025 Lipid 1996 panel - Serum or Plasma LIPID PANEL BASIC Lab Routine Hyperlipidemia, unspecified hyperlipidemia type Encounter for long-term current use of medication Expected: 12/18/2024 (Approximate), Expires: 03/19/2025 [facility] Work Phone: Comment on above: Expected: 12/18/2024 (Approximate), Expires: 03/19/2025 Start: 12-18-2024 End: 03-19-2025 Magnesium [Mass/volume] in Serum or Plasma MAGNESIUM Lab Routine Encounter for long-term current use of medication Expected: 12/18/2024 (Approximate), Expires: 03/19/2025 [facility] Comment on above: Expected: 12/18/2024 (Approximate), Expires: 03/19/2025 Start: 11-24-2024 End: 11-24-2024 Patient encounter procedure 11/24/2024 10:15 AM EDT Appointment [facility] [address] [place] [address] Breast asymmetry [N64.89] [facility] Comment on above: Breast asymmetry [N6 4.89] Start: 11-09-2024 End: 11-09-2024 Patient encounter procedure Mammogram Comment on above: Concern about appear ance of breast [R46.89]; Mass of lower inner quadrant of left breast [N63.24] Start: 10-24-2024 Covid-19 Vaccine ( season) Covid-19 Vaccine () [facility] Start: 09-27-2024 End: 12-27-2024 17-Hydroxyprogesterone [Mass/volume] in Serum or Plasma [facility] Comment on above: Expected: 09/27/2024 (Approximate), Expires: 12/27/2024 Start: 09-27-2024 End: 12-27-2024 DHEA-S BLD [facility] Comment on above: Expected: 09/27/2024 (Approximate), Expires: 12/27/2024 Start: 09-27-2024 End: 12-27-2024 Follitropin [Units/volume] in Serum or Plasma [facility] Comment on above: Expected: 09/27/2024 (Approximate), Expires: 12/27/2024 Start: 09-27-2024 End: 12-27-2024 Lutropin [Units/volume] in Serum or Plasma [facility] Comment on above: Expected: 09/27/2024 (Approximate), Expires: 12/27/2024 Start: 09-27-2024 End: 12-27-2024 Progesterone [Mass/volume] in Serum or Plasma [facility] Comment on above: Expected: 09/27/2024 (Approximate), Expires: 12/27/2024 Start: 09-27-2024 End: 12-27-2024 Prolactin [Mass/volume] in Serum or Plasma [facility] Work Phone: Comment on above: Expected: 09/27/2024 (Approximate), Expires: 12/27/2024 Start: 09-27-2024 End: 12-27-2024 Thyrotropin [Units/volume] in Serum or Plasma [facility] Comment on above: Expected: 09/27/2024 (Approximate), Expires: 12/27/2024 Start: 09-27-2024 End: 09-27-2024 Patient encounter procedure 09/27/2024 1:40 PM EST Office Visit [facility] [place] [address] [place] [address] Misael Lara APRN.[employer] [address] [facility] [place] [address] Follow up breast enlargement post negative test [facility] [place] Comment on above: Follow up breast enl argement post negative test Start: 08-10-2024 Advance Directive Discussion Advance Directive Discussion [facility] Start: 07-20-2024 End: 10-19-2024 25-hydroxyvitamin D3 [Mass/volume] in Serum or Plasma VITAMIN D 25 HYDROXY Lab Routine Vitamin D deficiency Age-related osteoporosis without current pathological fracture Encounter for long-term current use of medication Expected: 07/20/2024 (Approximate), Expires: 10/19/2024 [facility] Work Phone: Comment on above: Expected: 07/20/2024 (Approximate), Expires: 10/19/2024 Start: 07-20-2024 End: 10-19-2024 CBC panel - Blood by Automated count CBC Lab Routine Encounter for long-term current use of medication Expected: 07/20/2024 (Approximate), Expires: 10/19/2024 [facility] Work Phone: Comment on above: Expected: 07/20/2024 (Approximate), Expires: 10/19/2024 Start: 07-20-2024 End: 10-19-2024 Comprehensive metabolic 2000 panel - Serum or Plasma COMP METABOLIC PANEL Lab Routine Encounter for long-term current use of medication Expected: 07/20/2024 (Approximate), Expires: 10/19/2024 [facility] Work Phone: Comment on above: Expected: 07/20/2024 (Approximate), Expires: 10/19/2024 Start: 07-20-2024 End: 10-19-2024 Lipid 1996 panel - Serum or Plasma LIPID PANEL BASIC Lab Routine Hyperlipidemia, unspecified hyperlipidemia type Encounter for long-term current use of medication Expected: 07/20/2024 (Approximate), Expires: 10/19/2024 [facility] Work Phone: Comment on above: Expected: 07/20/2024 (Approximate), Expires: 10/19/2024 Start: 07-20-2024 End: 10-19-2024 Magnesium [Mass/volume] in Serum or Plasma MAGNESIUM BLD Lab Routine Encounter for long-term current use of medication Expected: 07/20/2024 (Approximate), Expires: 10/19/2024 [facility] Work Phone: Comment on above: Expected: 07/20/2024 (Approximate), Expires: 10/19/2024 Start: 07-20-2024 End: 07-20-2024 Patient encounter procedure 07/20/2024 11:00 AM EST Office Visit [facility] [place] [address] [place] [address] Jonny Torres MD [address] [place], [place] [id number] 6 month follow up [facility] [place] Comment on above: 6 month follow up Start: 05-03-2024 DIABETES SCREEN DIABETES SCREEN [facility] Start: 04-10-2024 Covid-19 Vaccine ( season) Covid-19 Vaccine ( season) [facility] Start: 04-10-2024 Influenza vaccination Influenza Vacc ine (#1) [facility] Start: 03-18-2024 End: 06-17-2024 Basic metabolic 2000 panel - Serum or Plasma BASIC METABOLIC PANEL Lab Routine Hypokalemia IFG (impaired fasting glucose) Expected: 03/18/2024 (Approximate), Expires: 06/17/2024 [facility] Work Phone: Comment on above: Expected: 03/18/2024 (Approximate), Expires: 06/17/2024 Start: 02-19-2024 End: 02-19-2024 Patient encounter procedure 02/19/2024 1:00 PM EDT Office Visit [facility] [address] [place] [place] [address] Crissy Luu MD [address] [place] [address] [facility] Start: 02-16-2024 End: 02-16-2024 Patient encounter procedure 02/16/2024 5:40 PM EDT Office Visit [facility] [place] [address] [place] [address] Jonny Torres MD [address] [place] [address] 6 mo follow up [facility] [place] Comment on above: 6 mo follow up Start: 02-08-2024 End: 05-09-2024 25-hydroxyvitamin D3 [Mass/volume] in Serum or Plasma VITAMIN D 25 HYDROXY Lab Routine Vitamin D deficiency Expected: 02/08/2024, Expires: 05/09/2024 [facility] Comment on above: Expected: 02/08/2024 , Expires: 05/09/2024 Start: 02-08-2024 End: 05-09-2024 CBC W Auto Differential panel - Blood COMPLETE BLOOD COUNT AND DIFFERENTIAL Lab Routine Encounter for therapeutic drug monitoring Expected: 02/08/2024, Expires: 05/09/2024 [facility] Work Phone: Comment on above: Expected: 02/08/2024 , Expires: 05/09/2024 Start: 02-08-2024 End: 05-09-2024 Comprehensive metabolic 2000 panel - Serum or Plasma COMPREHENSIVE METABOLIC PANEL Lab Routine Encounter for therapeutic drug monitoring Expected: 02/08/2024, Expires: 05/09/2024 [facility] Comment on above: Expected: 02/08/2024 , Expires: 05/09/2024 Start: 02-08-2024 End: 05-09-2024 Hemoglobin A1c in Blood HEMOGLOBIN A1C Lab Routine IFG (impaired fasting glucose) Expected: 02/08/2024, Expires: 05/09/2024 [facility] Comment on above: Expected: 02/08/2024 , Expires: 05/09/2024 Start: 02-08-2024 End: 05-09-2024 Lipid 1996 panel - Serum or Plasma LIPID PANEL BASIC Lab Routine Hyperlipidemia, unspecified hyperlipidemia type Expected: 02/08/2024, Expires: 05/09/2024 [facility] Comment on above: Expected: 02/08/2024 , Expires: 05/09/2024 Start: 02-08-2024 End: 05-09-2024 Magnesium [Mass/volume] in Serum or Plasma MAGNESIUM Lab Routine Encounter for therapeutic drug monitoring Expected: 02/08/2024, Expires: 05/09/2024 [facility] Comment on above: Expected: 02/08/2024 , Expires: 05/09/2024 Start: 01-22-2024 End: 01-22-2024 Patient encounter procedure 01/22/2024 11:00 AM EDT Office Visit [facility] [place] [address] [place], [place] [id number] Jonny Torres MD [address] [place], [place] [id number] 6 month follow up-labs [facility] [place] Comment on above: 6 month follow up-la bs Start: 11-20-2023 End: 11-20-2023 Follow-up encounter 11/20/2023 3:45 PM EDT Follow-Up [facility] [address] [place] [id number] Crissy Luu MD [address] [place] [address] [facility] Start: 10-28-2023 Covid-19 Vaccine () Covid-19 Vaccine () [facility] Start: 10-15-2023 End: 09-09-2024 Basic metabolic 2000 panel - Serum or Plasma BASIC METABOLIC PNL Lab Routine Hypokalemia Expected: 10/15/2023 (Approximate), Expires: 09/09/2024 [facility] Work Phone: Comment on above: Expected: 10/15/2023 (Approximate), Expires: 09/09/2024 Start: 10-09-2023 End: 10-09-2023 Follow-up encounter 10/09/2023 3:00 PM EST Follow-Up [facility] [address] [place] [address] Crissy Luu MD [address] [place] [address] [facility] Start: 09-25-[address] [facility] Start: 09-18-2023 Referral to service [facility] Start: 09-10-2023 [facility] Start: 09-09-2023 [facility] Start: 09-04-2023 Application of device [facility] Start: 08-31-2023 Provision of activit y privileges [facility] Start: 08-29-2023 Transfusion of blood product [facility] Start: 08-29-2023 [facility] Start: 08-29-2023 End: 08-29-2023 Administration of blood product [facility] Start: 08-29-2023 End: 08-29-2023 Following clinical pathway protocol [facility] Start: 08-29-2023 Administration of bl ood product [facility] Start: 08-29-2023 [facility] Start: 08-29-2023 Development of care plan [facility] Start: 08-29-2023 Developing a treatme nt plan [facility] Start: 08-28-2023 Wound care [facility] Start: 08-28-2023 Admission procedure [facility] Start: 08-28-2023 Measuring intake and output [facility] Start: 08-28-2023 Patient referral to dietitian [facility] Start: 08-28-2023 Referral to occupational therapist [facility] Start: 08-28-2023 Referral to service [facility] Start: 08-28-2023 Vital signs measurements [facility] Start: 08-28-2023 [facility] Start: 08-10-2023 Advance Directive Discussion Advance Directive Discussion [facility] Start: 06-23-2023 End: 08-23-2023 25-hydroxyvitamin D3 [Mass/volume] in Serum or Plasma VITAMIN D 25 HYDROXY Lab Routine Vitamin D deficiency Expected: 06/23/2023 (Approximate), Expires: 08/23/2023 [facility] Work Phone: Comment on above: Expected: 06/23/2023 (Approximate), Expires: 08/23/2023 Start: 06-23-2023 End: 08-23-2023 CBC panel - Blood by Automated count CBC Lab Routine Encounter for long-term current use of medication Expected: 06/23/2023 (Approximate), Expires: 08/23/2023 [facility] Work Phone: Comment on above: Expected: 06/23/2023 (Approximate), Expires: 08/23/2023 Start: 06-23-2023 End: 08-23-2023 Comprehensive metabolic 2000 panel - Serum or Plasma COMP METABOLIC PANEL Lab Routine Encounter for long-term current use of medication Expected: 06/23/2023 (Approximate), Expires: 08/23/2023 [facility] Work Phone: Comment on above: Expected: 06/23/2023 (Approximate), Expires: 08/23/2023 Start: 06-23-2023 End: 08-23-2023 Lipid 1996 panel - Serum or Plasma LIPID PANEL BASIC Lab Routine Hyperlipidemia, unspecified hyperlipidemia type Expected: 06/23/2023 (Approximate), Expires: 08/23/2023 [facility] Work Phone: Comment on above: Expected: 06/23/2023 (Approximate), Expires: 08/23/2023 Start: 06-23-2023 End: 08-23-2023 Magnesium [Mass/volume] in Serum or Plasma MAGNESIUM BLD Lab Routine Encounter for long-term current use of medication Expected: 06/23/2023 (Approximate), Expires: 08/23/2023 [facility] Work Phone: Comment on above: Expected: 06/23/2023 (Approximate), Expires: 08/23/2023 Start: 06-20-2023 Tetanus vaccination Tetanus: Every 1 0yrs [facility] Start: 06-20-2023 Urine microalbumin profile [facility] Start: 05-23-2023 SHINGRIX VACCINE (1 of 2) SHINGRIX VACCINE (1 of 2) [facility] Comment on above: Postponed from 04/05 (Declined at this time) Start: 04-10-2023 Covid-19 Vaccine ( season) Covid-19 Vaccine ( season) [facility] Start: 04-10-2023 Influenza vaccination [facility] Start: 02-03-2023 SHINGRIX VACCINE (2 of 2) SHINGRIX VACCINE (2 of 2) [facility] Start: 10-07-2022 COVID-19 VACCINE (6 - Moderna series) COVID-19 VACCINE (6 - Moderna series) [facility] Start: 08-10-2022 ADVANCE DIRECTIVE DISCUSSION ADVANCE DIRECTIVE DISCUSSION [facility] Start: 07-07-2022 End: 09-06-2022 Comprehensive metabolic 2000 panel - Serum or Plasma COMP METABOLIC PANEL Lab STAT Iron deficiency anemia, unspecified iron deficiency anemia type Expected: 07/07/2022, Expires: 09/06/2022 [facility] Work Phone: Comment on above: Expected: 07/07/2022 , Expires: 09/06/2022 Start: 05-21-2022 COVID-19 VACCINE (5 - Booster for Moderna series) COVID-19 VACCINE (5 - Booster for Moderna series) [facility] Start: 05-08-2022 SHINGRIX VACCINE (1 of 2) SHINGRIX VACCINE (1 of 2) [facility] Comment on above: Postponed from 04/05 (Declined at this time) Start: 04-10-2022 Influenza vaccination INFLUENZA (#1) [facility] Start: 10-07-2021 COVID-19 VACCINE (4 - Booster for Moderna series) COVID-19 VACCINE (4 - Booster for Moderna series) [facility] Start: 08-10-2021 ADVANCE DIRECTIVE DISCUSSION ADVANCE DIRECTIVE DISCUSSION [facility] Start: 04-17-2021 COVID-19 VACCINE (3 - Booster for Moderna series) COVID-19 VACCINE (3 - Booster for Moderna series) [facility] Start: 2017 Respiratory Syncytia l Virus Immunization: Risk, 60-74 Risk, or 75+ (1 - 1-dose 75+ series) Respiratory Syncytial Virus Immunization: Risk, 60-74 Risk, or 75+ (1 - 1-dose 75+ series) [facility] Start: 04-27-2007 FECAL OCCULT BLOOD FECAL OCCULT BLOO D [facility] Start: 04-27-2007 Screening for malign ant neoplasm of colon Fecal Occult Blood [facility] Start: 2007 Fall risk assessment Falls Risk Asse ssment [facility] Start: 03-10-2007 Medicare Annual Wellness Visit Medicare Annual Wellness Visit [facility] Start: 2002 RSV Vaccine (1 - 1-d ose 60+ series) RSV Vaccine (1 - 1-dose 60+ series) [facility] Start: 1987 COLOGUARD (FIT-DNA) COLOGUARD (FIT-D NA) [facility] Start: [address] COLONOGRAPHY [facility] Start: 1987 Screening for malign ant neoplasm of colon [facility] Start: 1987 SIGMOIDOSCOPY SIGMOIDOSCOPY [facility] Start: 1960 Anxiety Screening Anxiety Screening [facility] Start: 1954 Depression screening using PHQ-9 (Patient Health Questionnaire 9) score [facility] Start: 1945 History and physical examination, annual for health maintenance Wellness Visit [facility] Start: 1945 Medicare Wellness Visit Medicare Wel lness Visit [facility] Start: 1942 Screening for osteoporosis Dexa Scan [facility] Bacteria identified in Urine by Culture URINE CULTURE Microbiology Routine Burning with urination Ordered: 03/26/2024 [facility] Comment on above: Ordered: 03/26/2024 Bacteria identified in Urine by Culture BACTERIAL CULTURE, URINE Microbiology Routine Urinary frequency Ordered: 10/16/2024 [facility] Work Phone: Comment on above: Ordered: 10/16/2024 Bacteria identified in Urine by Culture BACTERIAL CULTURE, URINE Microbiology Routine Dysuria 10/27/2024 12:27 PM EDT [facility] End: 08-19-2024 BD DXA TRABECULAR BONE SCORE (TBS) BD DXA TRABECULAR BONE SCORE (TBS) Radiology Routine Asymptomatic postmenopausal status 1 Occurrences starting 07/21/2023 until 08/19/2024 [facility] Work Phone: Comment on above: 1 Occurrences starti ng 07/21/2023 until 08/19/2024 End: 11-18-2022 CBC panel - Blood by Automated count CBC Lab Routine Other fatigue Encounter for long-term current use of medication Every 3 months for 4 Occurrences starting 11/18/2021 until 11/18/2022 [facility] Work Phone: Comment on above: Every 3 months for 4 Occurrences starting 11/18/2021 until 11/18/2022 End: 11-18-2022 Comprehensive metabolic 2000 panel - Serum or Plasma COMP METABOLIC PANEL Lab Routine Other fatigue Encounter for long-term current use of medication Every 3 months for 4 Occurrences starting 11/18/2021 until 11/18/2022 [facility] Work Phone: Comment on above: Every 3 months for 4 Occurrences starting 11/18/2021 until 11/18/2022 End: 08-19-2024 Dxa bone density study axial skeleton DXA-AXIAL SKELETON WITH VFA Radiology Routine Asymptomatic postmenopausal status 1 Occurrences starting 07/21/2023 until 08/19/2024 [facility] Work Phone: Comment on above: 1 Occurrences starti ng 07/21/2023 until 08/19/2024 End: 11-18-2022 LIPID PANEL BASIC LIPID PANEL BASIC Lab Routine Hyperlipidemia, unspecified hyperlipidemia type Every 3 months for 4 Occurrences starting 11/18/2021 until 11/18/2022 [facility] Work Phone: Comment on above: Every 3 months for 4 Occurrences starting 11/18/2021 until 11/18/2022 End: 11-18-2022 Magnesium [Mass/volume] in Serum or Plasma MAGNESIUM BLD Lab Routine Encounter for long-term current use of medication Every 3 months for 4 Occurrences starting 11/18/2021 until 11/18/2022 [facility] Work Phone: Comment on above: Every 3 months for 4 Occurrences starting 11/18/2021 until 11/18/2022 End: 10-09-2025 MG Breast - bilateral Diagnostic JONA DIAGNOSTIC BILATERAL Radiology Routine Concern about appearance of breast Mass of lower inner quadrant of left breast 1 Occurrences starting 09/09/2024 until 10/09/2025 [facility] Work Phone: Comment on above: 1 Occurrences starti ng 09/09/2024 until 10/09/2025 End: 11-26-2025 MR Unspecified body region 3D post processing MRI 3D POST PROCESSING Radiology Routine Breast asymmetry Dense breast tissue on mammogram, unspecified type Encounter for breast cancer screening using non-mammogram modality 1 Occurrences starting 10/27/2024 until 11/26/2025 [facility] Comment on above: 1 Occurrences starti ng 10/27/2024 until 11/26/2025 End: 11-24-2024 MR Unspecified body region 3D post processing [facility] Work Phone: Comment on above: 1 Occurrences starti ng 11/24/2024 until 11/24/2024 Patient referral [facility] Work Phone: UA DIP, URINE (POC) UA DIP, URIN E (POC) Lab Routine Fall, initial encounter Acute low back pain, unspecified back pain laterality, unspecified whether sciatica present Ordered: 12/03/2021 [facility] Work Phone: Comment on above: Ordered: 12/03/2021 UA DIP, URINE (POC) UA DIP, URIN E (POC) Lab Routine Burning with urination Ordered: 03/26/2024 [facility] Work Phone: Comment on above: Ordered: 03/26/2024 UA DIP, URINE (POC) UA DIP, URIN E (POC) Lab Routine Dysuria Ordered: 10/27/2024 [facility] Work Phone: Comment on above: Ordered: 10/27/2024 End: 08-21-2023 US Abdomen limited [facility] Work Phone: Comment on above: Once for 1 Occurrenc es starting 08/21/2023 until 08/21/2023 End: 02-13-2023 Us abdominal real time w/image limited US ABD RT UPPER QUADRANT Radiology Routine RUQ abdominal pain 1 Occurrences starting 01/14/2022 until 02/13/2023 [facility] [facility] Work Phone: Comment on above: 1 Occurrences starti ng 01/14/2022 until 02/13/2023 End: 10-09-2025 US Breast - left limited US BREAST LTD LEFT Radiology Routine Concern about appearance of breast Mass of lower inner quadrant of left breast 1 Occurrences starting 09/09/2024 until 10/09/2025 [facility] Comment on above: 1 Occurrences starti ng 09/09/2024 until 10/09/2025 US Kidney - bilatera l and Urinary bladder [facility] End: 11-18-2022 VITAMIN D 25 HYDROXY VITAMIN D 25 HYDROXY Lab Routine Vitamin D deficiency Every 3 months for 4 Occurrences starting 11/18/2021 until 11/18/2022 [facility] Work Phone: Comment on above: Every 3 months for 4 Occurrences starting 11/18/2021 until 11/18/2022 [facility] Immunizations Immunization Date Immunization Notes Care Provider Fa anthony 04-26-2024 influenza virus vacc ine, unspecified formulation Victoriano Smith SCIENTIST ENGINEER.ASSOCIATE PROPERTY MANAGER Work Phone: [facility] 07-24-2023 RSV Adult BiValent (Abrysvo) [facility] 06-29-2023 Covid (Spikevax) [facility] 06-29-2023 influenza (aIIV4) vaccine, age 65+ yr, quadrivalent, PF (FLUAD QUAD) Misael Lara APRN.4TH GRADE TEACHER Work Phone: [facility] Work Phone: 06-29-2023 influenza, injectabl e, quadrivalent, preservative free [facility] 06-29-2023 influenza virus vacc ine, unspecified formulation Jonny Torres MD Work Phone: [facility] 02-12-2023 zoster vaccine recombinant Misael Lara APRN.4TH GRADE TEACHER Work Phone: [facility] Work Phone: 12-09-2022 zoster vaccine recombinant Jonny Torres MD Work Phone: [facility] 05-23-2022 influenza, high-dose , quadrivalent vaccine (FLUZONE HIGH DOSE QUADRIVALENT) Jonny Torres MD Work Phone: [facility] 05-23-2022 influenza virus vacc ine, unspecified formulation Jonny Torres MD Work Phone: [facility] 05-03-2021 influenza (HD-IIV4) vaccine, age 65+ yr, high dose, quadrivalent, PF (FLUZONE HIGH-DOSE) Jonny Torres MD Work Phone: [facility] 05-03-2021 influenza, high dose seasonal, preservative-free Jonny Torres MD Work Phone: [facility] Work Phone: 05-01-2020 influenza, high dose seasonal, preservative-free Jonny Torres MD Work Phone: [facility] 04-12-2020 influenza (HD-IIV4) vaccine, age 65+ yr, high dose, quadrivalent, PF (FLUZONE HIGH-DOSE) Jonny Torres MD Work Phone: [facility] 04-18-2019 influenza, high dose seasonal, preservative-free Jonny Torres MD Work Phone: [facility] 06-11-2018 influenza virus vacc ine, unspecified formulation Jonny Torres MD Work Phone: [facility] 04-18-2017 Influenza virus vaccine [facility] 04-18-2017 influenza, seasonal, injectable Misael Lara SCIENTIST ENGINEER.4TH GRADE TEACHER Work Phone: [facility] Work Phone: 04-18-2017 influenza, seasonal, injectable, preservative free Jonny Torres MD Work Phone: [facility] 04-20-2016 influenza, seasonal, injectable Jonny Torres MD Work Phone: [facility] Work Phone: 06-20-2015 Influenza virus vaccine [facility] 06-20-2015 influenza, seasonal, injectable Misael Lara SCIENTIST ENGINEER.4TH GRADE TEACHER Work Phone: [facility] Work Phone: 06-20-2015 influenza, seasonal, injectable, preservative free Jonny Torres MD Work Phone: [facility] 04-20-2015 influenza, seasonal, injectable Jonny Torres MD Work Phone: [facility] 08-25-2014 pneumococcal conjuga te vaccine, 13 valent Jonny Torres MD Work Phone: [facility] 04-28-2014 influenza, seasonal, injectable Jonny Torres MD Work Phone: [facility] 06-20-2013 tetanus toxoid, redu jhon diphtheria toxoid, and acellular pertussis vaccine, adsorbed Jonny Torres MD Work Phone: [facility] 04-10-2013 influenza virus vacc ine, whole virus Jonny Torres MD Work Phone: [facility] Work Phone: 08-24-2009 novel influenza-H1N1 -09, preservative-free, injectable Misael Lara SCIENTIST ENGINEER.4TH GRADE TEACHER Work Phone: [facility] Work Phone: 06-02-2008 influenza virus vacc ine, whole virus Misael Lara SCIENTIST ENGINEER.4TH GRADE TEACHER Work Phone: [facility] Work Phone: 12-17-2007 pneumococcal polysaccharide vaccine, 23 valent Jonny Torres MD Work Phone: [facility] Work Phone: 12-17-2007 pneumococcal vaccine , unspecified formulation [facility] Payers Date Payer Category Payer Self-pay [id number] 2024 Private Health Insurance [id number] 2023 Medicare [id number] 2015 Medicare MEDICARE MEDICAR E A AND B [id number] 2015-Present [phone] [address] [address] [place] [address] Medicare [id number] 2015 Private Health Insurance HUMANA HUMANA MEDICARE SUPPLEMENT [id number] 2015-Present [phone] [address] [address] [place] [address] Indemnity [id number] 2015 Private Health Insurance [id number] 2015 Private Health Insurance [id number] 2007 Medicare 2007 Medicare [id number] 1942 Unknown [id number] 2.840.1.089666.3.579.2 .903 1942 Unknown [id number] 2.840.1.013386.3.579.2 .903 1942 Unknown [id number] 2.840.1.506644.3.579.2 .903 1942 Unknown [id number] 2.16840.1.935750.3.579.2 .903 1942 Unknown [id number] 2.16840.1.769447.3.579.2 .903 1942 Unknown [id number] 2.16840.1.775769.3.579.2 .903 1942 Unknown [id number] 2.16.840.1.558566.3.579.2 .903 1942 Unknown [id number] 2.16840.1.447971.3.579.2 .903 1942 Unknown [id number] 2.840.1.268200.3.579.2 .90 1942 Unknown [id number] 2.16840.1.301485.3.579.2 .1942 Unknown [id number] 2.840.1.458046.3.579.2 .1942 Unknown [id number] 2.840.1.273556.3.579.2 .1942 Unknown [id number] 2.0.1.384460.3.579.2 . Managed Care (unspecified) CIG[employer] OTHER AFTER MEDICARE [id number] Unknown [id number] 2.840.1.872006.3.579.2 .462 Unknown [id number] 2.840.1.666479.3.579.2 .462 Unknown [id number] 2.840.1.261222.3.579.2 .462 Unknown [id number] 2.840.1.447886.3.579.2 .462 Unknown [id number] 2.16840.1.372759.3.579.2 .462 Unknown [id number] 2.16840.1.345153.3.579.2 .462 Unknown [id number] 2.840.1.202812.3.579.2 .462 Unknown [id number] 2.16.840.1.345167.3.579.2 .462 Unknown [id number] 2.16.840.1.582151.3.579.2 .462 Unknown [id number] 2.16.840.1.678199.3.579.2 .462 Unknown [id number] 2.16.840.1.767123.3.579.2 .462 Unknown [id number] 2.16.840.1.229811.3.579.2 .462 Unknown [id number] 2.16.840.1.393386.3.579.2 .462 Unknown [id number] 2.16.840.1.764231.3.579.2 .462 Unknown [id number] 2.16.840.1.153144.3.579.2 .462 Unknown [id number] 2.16.840.1.913671.3.579.2 .462 Social History Date Type Detail Facility Start: 08-15-2011 End: 08-21-2023 Tobacco smoking status DEIS Never smoked tobacco [facility] Start: 05-08-2021 End: 04-13-2025 Alcohol intake Current non-drinker of alcohol (finding) [facility] Start: 10-18-2019 End: 09-05-2020 History SDOH Alcohol Frequency 2 [facility] Start: 10-18-2019 End: 09-05-2020 History SDOH Alcohol Std Drinks 1 [facility] Start: 02-22-2020 End: 01-14-2022 History SDOH Social Connections Phone 4 [facility] Start: 02-22-2020 End: 01-14-2022 History SDOH Social Connections Get Together 98 [facility] Start: 10-18-2019 End: 01-14-2022 History SDOH Social Connections Nondenominational 3 [facility] Start: 10-18-2019 History SDOH Financial 5 [facility] Start: 10-18-2019 Education 17 [facility] Start: 1940 Sex Assigned At Female [facility] Start: 11-08-2021 End: 07-07-2022 Exposure to SARS-CoV-2 (event) Not sure [facility] Start: 06-16-2021 End: 08-28-2023 Tobacco smoking status DEIS Unknown if ever smoked [facility] Start: 10-24-2015 None [facility] Start: 10-24-2015 Spouse/ Significant Other [facility] Start: 05-28-2017 Non-smoker [facility] Start: 08-15-2011 End: 03-26-2024 Tobacco use and exposure Smokeless tobacco non-user [facility] Start: 01-12-2023 End: 02-14-2025 History of Social function [facility] Start: 01-12-2023 End: 02-14-2025 Tobacco use panel [facility] Start: 07-11-2012 National Score (1-100), lower number is lower risk 79 [facility] Start: 10-20-2019 Gender identity Identifies as female gender (finding) [facility] Start: 10-20-2019 Sexual orientation Heterosexual (finding) [facility] Are you now , , , , never or living with a partner? [facility] (I/We) worried wheth er (my/our) food would run out before (I/we) got money to buy more. DK or Refused [facility] Start: 08-24-2023 End: 08-17-2024 Alcohol intake Lifetime non-drinker (finding) [facility] Has the [employer], [email or web address], oil, or water company threatened to shut off services in your home in past 12Mo No [facility] (I/We) worried wheth er (my/our) food would run out before (I/we) got money to buy more. Never true [facility] Start: 1940 Sex Assigned At Not on file [facility] Start: 02-16-2024 End: 05-03-2025 Tobacco smoking status NHIS Ex-smoker [facility] History of tobacco use Current smoker [facility] History of tobacco use Cigarette Smoker C [facility] Start: 02-16-2024 Tobacco Comment Quit smoking in the s [facility] How often to you hav e a drink containing alcohol? Monthly or less [facility] How many standard dr inks containing alcohol do you have on a typical day? 1 or 2 [facility] How often do you hav e 6 or more drinks on 1 occasion? Never [facility] Do you feel stress - tense, restless, nervous, or anxious, or unable to sleep at night because your mind is troubled all the time - these days [OSQ] To some extent [facility] Do you belong to any clubs or organizations such as oriental orthodox groups, unions, fraternal or athletic groups, or school groups? Yes [facility] How hard is it for y ou to pay for the very basics like food, housing, medical care, and heating Not very hard [facility] Do you feel stress - tense, restless, nervous, or anxious, or unable to sleep at night because your mind is troubled all the time - these days [OSQ] Not at all [facility] Medical Equipment Procedure Code Equipment Code Equipment Origin al Text Equipment Identifier Dates Cable 1.7 X 750m m W/Crimp Sterl - [id number] FDA Start: 08-22-2023 Plate 4.5 X 206m m 11hl Broad Lcp - [id number] Start: 08-22-2023 Comment on above: Description: LOAD #1 75084 Screw 4.5 X 32mm Cortex Self-Tap - [id number] Start: 08-22-2023 Comment on above: Description: LOAD #1 18362 Screw 4.5 X 34mm Cortex Self-Tap - [id number] Start: 08-22-2023 Comment on above: Description: LOAD #1 07381 Screw 5 X 14mm L ocking Self-Tap T25 Strdrv Rec - [id number] Start: 08-22-2023 Comment on above: Description: LOAD #1 18606 Screw 5 X 10mm Periprosthetic Locking S-T Strdrv Sterl - [id number] FDA Start: 08-22-2023 Goals Date Patient Goal Desired Activity /State Functional Status Date Assessment Result Facility 09-25-2023 Functional status Up ad daphne;Chair [facility] Work Phone: 02-26-2015 Are you deaf, or do you have serious difficulty hearing No 02/26/2015 3:40 PM EDT Aline Mckeon MA No [facility] 02-26-2015 Are you blind, or do you have serious difficulty seeing, even when wearing glasses No 02/26/2015 3:40 PM EDT Aline Mckeon MA No [facility] 02-26-2015 Do you have serious difficulty walking or climbing stairs Yes 02/26/2015 3:40 PM EDT Aline Mckeon MA Yes [facility] 02-26-2015 Do you have difficul ty dressing or bathing No 02/26/2015 3:40 PM EDT Aline Mckeon MA No [facility] 02-26-2015 Because of a physica l, mental, or emotional condition, do you have difficulty doing errands alone such as visiting a physician's office or shopping No 02/26/2015 3:40 PM EDT Aline Mckeon MA No [facility] Mental Status Date Assessment Result Facility 09-25-2023 Cognitive function Voice/Name [facility] Work Phone: 02-26-2015 Because of a physica l, mental, or emotional condition, do you have serious difficulty concentrating, remembering, or making decisions No 02/26/2015 3:40 PM EDT Aline Mckeon MA No [facility] Clinical Notes 06-02-2017 to 04-15-2025 Patient InstructionsRamone Dorman MD - 04/13/2025 1:37 PM EDTPatient InstructionsRamone Dorman MD - 04/06/2025 3:35 PM EDT Note Date & Type Note Facility 04-15-2025 Instructions Ramone Dorman MD - 04/15/2025 9:44 PM EDT BONE MINERAL DENSITY PATIENT INSTRUCTIONS ========= Bone [...] usual activities immediately. documented in this encounter [facility] 04-13-2025 History of Present illness Narrative Endocrinology and Metabolism [place] Follow up note NAME: Radha Baldwin is a 85 year old old female PCP: Jonny Torres MD Chief Complaint: Osteoporosis HPI: Radha Baldwin is a 85 year old female here to discuss bone health. PMHx significant for fracture of femur as below Initial visit on 04/06/25 She is a retired nurse Calcium: Citracal Petites 600-800 mg BID. Consumes cheese daily and yogurt approximately twice weekly. Denies lactose intolerance or gluten sensitivity. Vitamin D: 2000 units daily Dietary and supplemental calcium intakes are adequate. Prior use of antiresporptives or other medications: Fosamax started in 2002, dcd in 2011. She used 16 months of Forteo from 2011- 2013. This was followed by [facility]bah, 02/2014- 07/2023 Prior fragility fractures: She fractured right femur in Aug 2023, trying to cross a dog gate when she saw her "pants moving". Treated with hardware ("screws") Reports occasional pain, sometimes weather-related. - History of hip replacement 9 years ago, resulting in leg length discrepancy. - Reports balance issues and decreased physical activity since the fracture. No specific exercise reported Height loss: 1 inch Kidney stones: no History of corticosteroid use: no Has hx of GERD, for several years, treated with protonix History of malabsorption: no History of certain medication use: none Current or recent tobacco use: 60 years ago Caffeine intake: 1 cup of decaffeinated Alcohol use: occasional Use of lithium or thiazides: no History of hyperparathyroidism:not known Dental appointment: Goes very year, beginning of this year she had an appt and has no dental issues P:3 A:0 Menarche/LMP: Mentrual regularity: irregular History of BCP use: up until tubectomy she used control pills History of estrogen use: few months to a year after menopause History of : normal Menopause: natural at 58 She has no eating disorder Cancer history: skin cancer- melanoma and basal cell carcinoma, excised History of radiation exposure: no Family history of osteoporosis, calcium, or bone disorders: rickets in father Family history of hip fractures: no Interval history: 04/13/25: Patient is presenting after labs done for evaluation of bone health PAST MEDICAL HISTORY Diagnosis Date CVA (cerebral vascular accident) (HCC) 06/02/2017 [facility] acute ischemic right posterior putamen stroke on MRI ASA, Plavix atorvastatin. Follow up with Dr. Witt scheduled. 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 May 2017; treated at [facility] Irritable bowel syndrome Osteoporosis, unspecified Stroke (HCC) Thoracic or lumbosacral neuritis or radiculitis, unspecified Unspecified constipation Constipation PAST SURGICAL HISTORY Procedure Laterality Date ABDOMINAL SURGERY HX COLONOSCOPY 06/17/2022 repeat in 10 years COLONOSCOPY W/BIOPSY SINGLE/MULTIPLE 02/08/2013 normal appearing DILATION & CURETTAGE DX&/THER NONOBSTETRIC Dilation & curettage EGD 06/17/2022 EGD TRANSORAL BIOPSY SINGLE/MULTIPLE 02/08/2013 duodenitis, gastritis JOINT REPLACEMENT HX LIG/TRNSXJ FLP TUBE ABDL/VAG APPR UNI/BI Tubal ligation TONSILLECTOMY HX TONSILLECTOMY PRIMARY/SECONDARY <AGE 12 Tonsillectomy Current Outpatient Medications on File Prior to Visit Medication Sig cephALEXin (KEFLEX) 500 mg capsule Take 1 capsule by mouth three times a day for 10 days. coenzyme Q10 (COQ-10) 100 mg cap capsule Take 1 capsule by mouth two times a day. (Or 200 mg once daily) rosuvastatin (CRESTOR) 5 mg tablet Take 1 tablet by mouth daily at bedtime. mometasone (NASONEX) 50 mcg/actuation nasal spray Use 2 Sprays in each nostril once daily. INSTILL 2 SPRAYS IN EACH NOSTRIL ONCE DAILY montelukast (SINGULAIR) 10 mg tablet Take 1 tablet by mouth every afternoon. DULoxetine (CYMBALTA) 20 mg capsule Take 1 capsule by mouth once daily. potassium chloride (K-TAB) 10 mEq tablet Take 1 tablet by mouth two times a day. clopidogrel (PLAVIX) 75 mg tablet Take 1 tablet by mouth once daily. pantoprazole DR (PROTONIX) 40 mg tablet Take 1 tablet by mouth two times a day. Take on empty stomach, 1/2 hr before meal. (Patient taking differently: Take 40 mg by mouth once daily. Take on empty stomach, 1/2 hr before meal.) naproxen (NAPROSYN) 250 mg tablet 4 TIMES DAILY NEEDED scopolamine (TRANSDERM-SCOP) patch 1.5 mg/72 hr (1 mg over 3 days) Apply 1 Patch as directed every 72 hours. nitroglycerin sublingual (NITROQUICK) 0.4 mg SL tablet Dissolve 0.4mg tab (1tab) under tongue every 5min as needed for chest pain. If no response after max 3 tabs go to ED/notify doctor. fluticasone (FLONASE) 50 mcg/actuation nasal spray Use 1 [place] in each nostril once daily. For allergy season meclizine (ANTIVERT) 25 mg tab Take 2 tablets by mouth once daily as needed (dizziness/motion sickness). polypodium leucotomos extract (HELIOCARE ORAL) Take 1 tablet by mouth as needed (Hold during the winter). SENNOSIDES/DOCUSATE SODIUM (SENOKOT-S ORAL) Take 1 Dose by mouth once daily as needed. Cholecalciferol, Vitamin D3, 25 mcg (1,000 unit) cap Take 1,000 Units by mouth two times a day. ascorbic acid(VITAMIN C 500 MG TAB) Take one(1) tablet two(2) times daily. acetaminophen(TYLENOL ARTHRITIS PAIN 650 MG TAB) Take two(2) tablets twice daily. VITAMIN E 400IU SOFTGEL Take one(1) capsule twice daily. gabapentin (NEURONTIN) 100 mg capsule Take 1 capsule by mouth daily at bedtime. (Patient not taking: Reported on 04/06/2025) No current facility-administered medications on file prior to visit. ALLERGIES Allergen Reactions Fentanyl Itching Codeine GI Upset Penicillins Unknown FAMILY HISTORY Problem Relation Age of Onset Cancer Father stomach Heart Father REVIEW OF SYSTEMS 10 point ROS was reviewed and negative unless indicated in the HPI Physical Exam: BP 124/74 (BP Site: Right Arm, BP Position: Sitting, BP Cuff Size: Regular Adult) Pulse 76 Temp 37.2 C (99 F) (Temporal Artery) Resp 18 Wt 57.5 kg (126 lb 12.8 oz) SpO2 97% BMI 23.19 kg/m Body mass index is 23.19 kg/m . No significant changes since last seen General: WNWD, NAD Eyes: conjunctivae are pink, and moist. No exopthalmos, lag, or stare Neck: The thyroid is normal in size, non tender, no palpable nodules Lymphatic: no cervical or supraclavicular adenopathy Cardiovascular: regular rate and rhythm Respiratory: full sounds bilaterally with normal expansion Gastrointestinal: soft, non-tender Musculoskeletal: no spinal tenderness Skin: normal, no rashes present Neurologic: DTR s normal with normal recovery phase, EOMI, no tremor with outstretched hands Pyschiatric: mood and affect are normal DATA REVIEW: Labs: Latest Ref Rng 02/09/2024 04/06/2024 07/15/2024 02/09/2025 Protein, Total 6.3 - 8.0 g/dL 7.2 7.2 7.0 Albumin 3.9 - 4.9 g/dL 4.4 4.5 4.3 Calcium 8.5 - 10.2 mg/dL 9.7 9.8 10.0 9.7 Bilirubin, Total 0.2 - 1.3 mg/dL 0.4 0.3 0.4 Alkaline Phosphatase 34 - 123 U/L 149 (H) 109 89 AST 13 - 35 U/L 20 17 19 ALT 7 - 38 U/L 13 9 12 Glucose 74 - 99 mg/dL 81 87 95 84 BUN 7 - 21 mg/dL 20 21 22 (H) 17 Creatinine 0.58 - 0.96 mg/dL 0.62 0.51 (L) 0.64 0.64 Sodium 136 - 144 mmol/L 140 139 142 139 Potassium 3.7 - 5.1 mmol/L 3.6 (L) 4.2 3.6 (L) 4.1 Chloride 98 - 107 mmol/L 104 104 105 103 CO2 22 - 30 mmol/L 25 25 25 23 Anion Gap 8 - 15 mmol/L 11 10 12 13 eGFR >=60 mL/min/1.73m 90 93 88 88 Vitamin D 25 Hydroxy 31.0 - 80.0 ng/mL 65.2 62.0 Magnesium 1.7 - 2.3 mg/dL 2.4 (H) Latest Ref [facility] 04/07/2025 Protein, Total 6.3 - 8.0 g/dL 6.1 (L) Albumin 3.9 - 4.9 g/dL 4.2 Calcium 8.5 - 10.2 mg/dL 9.2 Bilirubin, Total 0.2 - 1.3 mg/dL 0.3 Alkaline Phosphatase 34 - 123 U/L 82 AST 13 - 35 U/L 19 ALT 7 - 38 U/L 11 Glucose 74 - 99 mg/dL 90 BUN 7 - 21 mg/dL 17 Creatinine 0.58 - 0.96 mg/dL 0.64 Sodium 136 - 144 mmol/L 142 Potassium 3.7 - 5.1 mmol/L 4.2 Chloride 98 - 107 mmol/L 107 CO2 22 - 30 mmol/L 22 Anion Gap 8 - 15 mmol/L 13 eGFR >=60 mL/min/1.73m 88 PTH, Intact 15 - 65 pg/mL 51 Vitamin D 25 Hydroxy 31.0 - 80.0 ng/mL 67.6 C Telopeptide, Beta Cross Linked 152 - 858 pg/mL 456 Alk Phosphatase, Bone ug/L 15.6 Phosphorus 2.7 - 4.8 mg/dL 2.9 Magnesium 1.7 - 2.3 mg/dL 2.3 Osteocalcin 8.6 - 37.6 ng/mL 28.0 Legend: (H) High (L) Low DXA: 08/17/2023 Personally reviewed images of the DXA scan DXA Model: [employer] C [id number] Date Scanned: 08/17/2023 1:49 PM CLINICAL HISTORY: DIAGNOSTIC Postmenopausal status . RISK FACTORS FOR OSTEOPOROSIS AND ASSOCIATED FRACTURES REPORTED BY THIS PATIENT: Please refer to Bone Health Questionnaire in the EMR CURRENT THERAPY: Please refer to Bone Health Questionnaire in the EMR TECHNICAL LIMITATIONS: right hip fracture/surgery RESULTS: Lumbar spine (L1, L2, L3, L4): 0.936 g/cm2, T-score -1.0, Z-score 1.7 Lumbar spine: 2018: 0.864 g/cm2 Left Femoral Neck: 0.552 g/cm2, T-score -2.7, Z-score -0.3 Left Femoral Neck: 2018: 0.561 g/cm2 Left Total Hip: 0.672 g/cm2, T-score -2.2, Z-score -0.1 Left Total Hip: 2018: 0.722 g/cm2 CHANGE IS STATISTICALLY SIGNIFICANT IN THE SPINE OR HIP IF GREATER THAN OR EQUAL TO 0.04 g/cm2 VERTEBRAL FRACTURE ASSESSMENT Not performed. TRABECULAR BONE ASSESSMENT TBS score: 1.234 Bone micro-architecture: Partially degraded (1.231 - 1.310) IMPRESSION: THE LOWEST T-SCORE IS -2.7 IN THE LEFT HIP 1) DIAGNOSIS (based on BMD alone): OSTEOPOROSIS Assessment/plan: Radha Baldwin is a 85 year old female who presents for evaluation of bone health. History is significant for femoral fractures while she was on Bisphosphonates, likely AFF Risk factors include age, post menopausal status. No other reason known from history, but she has multiple fractures in the past She had prolonged use of Bisphosphonates with fosamax from 2002 to 2011, and then on forteo for 16 months until 2013, followed by several doses of reclast annually from 02/2014 to 07/2023. No other evaluation was available in chart From chart review, it appears there was improvement in BMD from 2002 to 2007 and then to 2011. But her fractures appear to be AFF Her calcium intake has been adequate. She cannot do 24 hr urine collection due to incontinence issues but other calcium labs completed Bone turn over markers are moderately high and hence I discussed Evenity as an option for bone health to avoid fragility fractures She would like to continue with conservative management for osteoporosis after she was recommended Evenity for her bone density. I discussed 1 year treatment, frequency of doses in the year of treatment, followed by antiresorptive She is going to "rethink" about the medication and would like to follow up sooner if needed Encouraged weight bearing exercise Continue calcium, D replacement DXA scan due in 08/2025- orders will be placed following this encounter Follow up in 1 year otherwise Ramone Dorman MD Endocrinology Associate Staff [facility] Endocrinology and Metabolism [place] [phone] Medical Decision Making: Problems: Low: Stable chronic illness Data: Unique test result(s) reviewed: 3+ Unique test(s) ordered: 1 Medical Decision Making Level: 3 - Low documented in this encounter [facility] 04-13-2025 Note HNO ID: [id number] Author: RAMONE DORMAN MD Service: ? Author Type: Physician Type: Progress Notes Filed: 04/15/2025 21:46 Note Text: Endocrinology and Metabolism [place] Follow up note NAME: Radha Baldwin is a 85 year old old female PCP: Jonny Torres MD Chief Complaint: Osteoporosis HPI: Radha Baldwin is a 85 year old female here to discuss bone health. PMHx significant for fracture of femur as below Initial visit on 04/06/25 She is a retired nurse Calcium: Citracal Petites 600-800 mg BID. Consumes cheese daily and yogurt approximately twice weekly. Denies lactose intolerance or gluten sensitivity. Vitamin D: 2000 units daily Dietary and supplemental calcium intakes are adequate. Prior use of antiresporptives or other medications: Fosamax started in 2002, dcd in 2011. She used 16 months of Forteo from 2011- 2013. This was followed by Misbah, 02/2014- 07/2023 Prior fragility fractures: She fractured right femur in Aug 2023, trying to cross a dog gate when she saw her "pants moving". Treated with hardware ("screws") Reports occasional pain, sometimes weather-related. - History of hip replacement 9 years ago, resulting in leg length discrepancy. - Reports balance issues and decreased physical activity since the fracture. No specific exercise reported Height loss: 1 inch Kidney stones: no History of corticosteroid use: no Has hx of GERD, for several years, treated with protonix History of malabsorption: no History of certain medication use: none Current or recent tobacco use: 60 years ago Caffeine intake: 1 cup of decaffeinated Alcohol use: occasional Use of lithium or thiazides: no History of hyperparathyroidism:not known Dental appointment: Goes very year, beginning of this year she had an appt and has no dental issues P:3 A:0 Menarche/LMP: Mentrual regularity: irregular History of BCP use: up until tubectomy she used control pills History of estrogen use: few months to a year after menopause History of : normal Menopause: natural at 58 She has no eating disorder Cancer history: skin cancer- melanoma and basal cell carcinoma, excised History of radiation exposure: no Family history of osteoporosis, calcium, or bone disorders: rickets in father Family history of hip fractures: no Interval history: 04/13/25: Patient is presenting after labs done for evaluation of bone health PAST MEDICAL HISTORY Diagnosis Date CVA (cerebral vascular accident) (HCC) 06/02/2017 [facility] acute ischemic right posterior putamen stroke on MRI ASA, Plavix atorvastatin. Follow up with Dr. Witt scheduled. 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 May 2017; treated at [facility] Irritable bowel syndrome Osteoporosis, unspecified Stroke (HCC) Thoracic or lumbosacral neuritis or radiculitis, unspecified Unspecified constipation Constipation PAST SURGICAL HISTORY Procedure Laterality Date ABDOMINAL SURGERY HX COLONOSCOPY 06/17/2022 repeat in 10 years COLONOSCOPY W/BIOPSY SINGLE/MULTIPLE 02/08/2013 normal appearing DILATION AND CURETTAGE DXAND/THER NONOBSTETRIC Dilation AND curettage EGD 06/17/2022 EGD TRANSORAL BIOPSY SINGLE/MULTIPLE 02/08/2013 duodenitis, gastritis JOINT REPLACEMENT HX LIG/TRNSXJ FLP TUBE ABDL/VAG APPR UNI/BI Tubal ligation TONSILLECTOMY HX TONSILLECTOMY PRIMARY/SECONDARY Tonsillectomy Current Outpatient Medications on File Prior to Visit Medication Sig cephALEXin (KEFLEX) 500 mg capsule Take 1 capsule by mouth three times a day for 10 days. coenzyme Q10 (COQ-10) 100 mg cap capsule Take 1 capsule by mouth two times a day. (Or 200 mg once daily) rosuvastatin (CRESTOR) 5 mg tablet Take 1 tablet by mouth daily at bedtime. mometasone (NASONEX) 50 mcg/actuation nasal spray Use 2 Sprays in each nostril once daily. INSTILL 2 SPRAYS IN EACH NOSTRIL ONCE DAILY montelukast (SINGULAIR) 10 mg tablet Take 1 tablet by mouth every afternoon. DULoxetine (CYMBALTA) 20 mg capsule Take 1 capsule by mouth once daily. potassium chloride (K-TAB) 10 mEq tablet Take 1 tablet by mouth two times a day. clopidogrel (PLAVIX) 75 mg tablet Take 1 tablet by mouth once daily. pantoprazole DR (PROTONIX) 40 mg tablet Take 1 tablet by mouth two times a day. Take on empty stomach, 1/2 hr before meal. (Patient taking differently: Take 40 mg by mouth once daily. Take on empty stomach, 1/2 hr before meal.) naproxen (NAPROSYN) 250 mg tablet 4 TIMES DAILY NEEDED scopolamine (TRANSDERM-SCOP) patch 1.5 mg/72 hr (1 mg over 3 days) Apply 1 Patch as directed every 72 hours. nitroglycerin sublingual (NITROQUICK) 0.4 mg SL tablet Dissolve 0.4mg tab (1tab) under tongue every 5mi (more content not included)... [facility] 04-06-2025 Instructions Ramone Dorman MD - 04/06/2025 4:04 PM EDT Please do labs on fasting at 8 am documented in this encounter [facility] 04-06-2025 Note HNO ID: [id number] Author: RAMONE DORMAN MD Service: ? Author Type: Physician Type: Progress Notes Filed: 04/06/2025 18:15 Note Text: Endocrinology and Metabolism [place] Initial Clinic Visit Note NAME: Radha Baldwin is a 85 year old old female PCP: Jonny Torres MD Requesting Provider: Jonny Torres [address] [facility] [phone] My final recommendations will be communicated back to the requesting physician by way of shared medical record or letter via [place] mail. Chief Complaint: HPI: Radha Baldwin is a 85 year old female here to discuss bone health. PMHx significant for fracture of femur as below She is a retired nurse Calcium: Citracal Petites 600-800 mg BID. Consumes cheese daily and yogurt approximately twice weekly. Denies lactose intolerance or gluten sensitivity. Vitamin D: 2000 units daily Dietary and supplemental calcium intakes are adequate. Prior use of antiresporptives or other medications: Fosamax started in 2002, dcd in 2011. She used 16 months of Forteo from 2011- 2013. This was followed by Misbah, 02/2014- 07/2023 Prior fragility fractures: She fractured right femur in Aug 2023, trying to cross a dog gate when she saw her "pants moving". Treated with hardware ("screws") Reports occasional pain, sometimes weather-related. - History of hip replacement 9 years ago, resulting in leg length discrepancy. - Reports balance issues and decreased physical activity since the fracture. No specific exercise reported Height loss: 1 inch Kidney stones: no History of corticosteroid use: no Has hx of GERD, for several years, treated with protonix History of malabsorption: no History of certain medication use: none Current or recent tobacco use: 60 years ago Caffeine intake: 1 cup of decaffeinated Alcohol use: occasional Use of lithium or thiazides: no History of hyperparathyroidism:not known Dental appointment: Goes very year, beginning of this year she had an appt and has no dental issues P:3 A:0 Menarche/LMP: Mentrual regularity: irregular History of BCP use: up until tubectomy she used control pills History of estrogen use: few months to a year after menopause History of : normal Menopause: natural at 58 She has no eating disorder Cancer history: skin cancer- melanoma and basal cell carcinoma, excised History of radiation exposure: no Family history of osteoporosis, calcium, or bone disorders: rickets in father Family history of hip fractures: no PAST MEDICAL HISTORY Diagnosis Date CVA (cerebral vascular accident) (HCC) 06/02/2017 [facility] acute ischemic right posterior putamen stroke on MRI ASA, Plavix atorvastatin. Follow up with Dr. Witt scheduled. 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 May 2017; treated at [facility] Irritable bowel syndrome Osteoporosis, unspecified Stroke ([facility]) Thoracic or lumbosacral neuritis or radiculitis, unspecified Unspecified constipation Constipation PAST SURGICAL HISTORY Procedure Laterality Date ABDOMINAL SURGERY HX COLONOSCOPY 06/17/2022 repeat in 10 years COLONOSCOPY W/BIOPSY SINGLE/MULTIPLE 02/08/2013 normal appearing DILATION AND CURETTAGE DXAND/THER NONOBSTETRIC Dilation AND curettage EGD 06/17/2022 EGD TRANSORAL BIOPSY SINGLE/MULTIPLE 02/08/2013 duodenitis, gastritis JOINT REPLACEMENT HX LIG/TRNSXJ FLP TUBE ABDL/VAG APPR UNI/BI Tubal ligation TONSILLECTOMY HX TONSILLECTOMY PRIMARY/SECONDARY Tonsillectomy Current Outpatient Medications on File Prior to Visit Medication Sig cephALEXin (KEFLEX) 500 mg capsule Take 1 capsule by mouth three times a day for 10 days. coenzyme Q10 (COQ-10) 100 mg cap capsule Take 1 capsule by mouth two times a day. (Or 200 mg once daily) rosuvastatin (CRESTOR) 5 mg tablet Take 1 tablet by mouth daily at bedtime. mometasone (NASONEX) 50 mcg/actuation nasal spray Use 2 Sprays in each nostril once daily. INSTILL 2 SPRAYS IN EACH NOSTRIL ONCE DAILY montelukast (SINGULAIR) 10 mg tablet Take 1 tablet by mouth every afternoon. DULoxetine (CYMBALTA) 20 mg capsule Take 1 capsule by mouth once daily. potassium chloride (K-TAB) 10 mEq tablet Take 1 tablet by mouth two times a day. clopidogrel (PLAVIX) 75 mg tablet Take 1 tablet by mouth once daily. pantoprazole DR GarrettPROTONIX) 40 mg tablet Take 1 tablet by mouth two times a day. Take on empty stomach, 1/2 hr before meal. (Patient taking differently: Take 40 mg by mouth once daily. Take on empty stomach, 1/2 hr before meal.) naproxen (NAPROSYN) 250 mg tablet 4 TIMES DAILY NEEDED scopolamine (TRANSDERM-SCOP) patch 1.5 mg/72 hr (1 mg over 3 days) Apply 1 Patch as directed every 72 hours. nitroglycerin (more content not included)... [facility] 04-06-2025 History of Present illness Narrative Endocrinology and Metabolism [place] Initial Clinic Visit Note NAME: Radha Baldwin is a 85 year old old female PCP: Jonny Torres MD Requesting Provider: Jonny Torres [address] [facility] [phone] My final recommendations will be communicated back to the requesting physician by way of shared medical record or letter via [place] mail. Chief Complaint: HPI: Radha Baldwin is a 85 year old female here to discuss bone health. PMHx significant for fracture of femur as below She is a retired nurse Calcium: Citracal Petites 600-800 mg BID. Consumes cheese daily and yogurt approximately twice weekly. Denies lactose intolerance or gluten sensitivity. Vitamin D: 2000 units daily Dietary and supplemental calcium intakes are adequate. Prior use of antiresporptives or other medications: Fosamax started in 2002, dcd in 2011. She used 16 months of Forteo from 2011- 2013. This was followed by Misbah, 02/2014- 07/2023 Prior fragility fractures: She fractured right femur in Aug 2023, trying to cross a dog gate when she saw her "pants moving". Treated with hardware ("screws") Reports occasional pain, sometimes weather-related. - History of hip replacement 9 years ago, resulting in leg length discrepancy. - Reports balance issues and decreased physical activity since the fracture. No specific exercise reported Height loss: 1 inch Kidney stones: no History of corticosteroid use: no Has hx of GERD, for several years, treated with protonix History of malabsorption: no History of certain medication use: none Current or recent tobacco use: 60 years ago Caffeine intake: 1 cup of decaffeinated Alcohol use: occasional Use of lithium or thiazides: no History of hyperparathyroidism:not known Dental appointment: Goes very year, beginning of this year she had an appt and has no dental issues P:3 A:0 Menarche/LMP: Mentrual regularity: irregular History of BCP use: up until tubectomy she used control pills History of estrogen use: few months to a year after menopause History of : normal Menopause: natural at 58 She has no eating disorder Cancer history: skin cancer- melanoma and basal cell carcinoma, excised History of radiation exposure: no Family history of osteoporosis, calcium, or bone disorders: rickets in father Family history of hip fractures: no PAST MEDICAL HISTORY Diagnosis Date CVA (cerebral vascular accident) ([facility]) 06/02/2017 [facility] acute ischemic right posterior putamen stroke on MRI ASA, Plavix atorvastatin. Follow up with Dr. Witt scheduled. 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 May 2017; treated at [facility] Irritable bowel syndrome Osteoporosis, unspecified Stroke ([facility]) Thoracic or lumbosacral neuritis or radiculitis, unspecified Unspecified constipation Constipation PAST SURGICAL HISTORY Procedure Laterality Date ABDOMINAL SURGERY HX COLONOSCOPY 06/17/2022 repeat in 10 years COLONOSCOPY W/BIOPSY SINGLE/MULTIPLE 02/08/2013 normal appearing DILATION & CURETTAGE DX&/THER NONOBSTETRIC Dilation & curettage EGD 06/17/2022 EGD TRANSORAL BIOPSY SINGLE/MULTIPLE 02/08/2013 duodenitis, gastritis JOINT REPLACEMENT HX LIG/TRNSXJ FLP TUBE ABDL/VAG APPR UNI/BI Tubal ligation TONSILLECTOMY HX TONSILLECTOMY PRIMARY/SECONDARY <AGE 12 Tonsillectomy Current Outpatient Medications on File Prior to Visit Medication Sig cephALEXin (KEFLEX) 500 mg capsule Take 1 capsule by mouth three times a day for 10 days. coenzyme Q10 (COQ-10) 100 mg cap capsule Take 1 capsule by mouth two times a day. (Or 200 mg once daily) rosuvastatin (CRESTOR) 5 mg tablet Take 1 tablet by mouth daily at bedtime. mometasone (NASONEX) 50 mcg/actuation nasal spray Use 2 Sprays in each nostril once daily. INSTILL 2 SPRAYS IN EACH NOSTRIL ONCE DAILY montelukast (SINGULAIR) 10 mg tablet Take 1 tablet by mouth every afternoon. DULoxetine (CYMBALTA) 20 mg capsule Take 1 capsule by mouth once daily. potassium chloride (K-TAB) 10 mEq tablet Take 1 tablet by mouth two times a day. clopidogrel (PLAVIX) 75 mg tablet Take 1 tablet by mouth once daily. pantoprazole DR (PROTONIX) 40 mg tablet Take 1 tablet by mouth two times a day. Take on empty stomach, 1/2 hr before meal. (Patient taking differently: Take 40 mg by mouth once daily. Take on empty stomach, 1/2 hr before meal.) naproxen (NAPROSYN) 250 mg tablet 4 TIMES DAILY NEEDED scopolamine (TRANSDERM-SCOP) patch 1.5 mg/72 hr (1 mg over 3 days) Apply 1 Patch as directed every 72 hours. nitroglycerin sublingual (NITROQUICK) 0.4 mg SL tablet Dissolve 0.4mg tab (1tab) under tongue every 5min as needed for chest pain. If no response after max 3 tabs go to ED/notify doctor. fluticasone (FLONASE) 50 mcg/actuation nasal spray Use 1 [place] in each nostril once daily. For allergy season meclizine (ANTIVERT) 25 mg tab Take 2 tablets by mouth once daily as needed (dizziness/motion sickness). polypodium leucotomos extract (HELIOCARE ORAL) Take 1 tablet by mouth as needed (Hold during the winter). SENNOSIDES/DOCUSATE SODIUM (SENOKOT-S ORAL) Take 1 Dose by mouth once daily as needed. Cholecalciferol, Vitamin D3, 25 mcg (1,000 unit) cap Take 1,000 Units by mouth two times a day. ascorbic acid(VITAMIN C 500 MG TAB) Take one(1) tablet two(2) times daily. acetaminophen(TYLENOL ARTHRITIS PAIN 650 MG TAB) Take two(2) tablets twice daily. VITAMIN E 400IU SOFTGEL Take one(1) capsule twice daily. gabapentin (NEURONTIN) 100 mg capsule Take 1 capsule by mouth daily at bedtime. (Patient not taking: Reported on 04/06/2025) No current facility-administered medications on file prior to visit. ALLERGIES Allergen Reactions Fentanyl Itching Codeine GI Upset Penicillins Unknown FAMILY HISTORY Problem Relation Age of Onset Cancer Father stomach Heart Father REVIEW OF SYSTEMS 10 point ROS was reviewed and negative unless indicated in the HPI Physical Exam: BP 138/62 (BP Site: Right Arm, BP Position: Sitting, BP Cuff Size: Regular Adult) Pulse 79 Temp 36.6 C (97.8 F) (Temporal Artery) Resp 20 Wt 57.7 kg (127 lb 3.2 oz) SpO2 99% BMI 23.27 kg/m Body mass index is 23.27 kg/m . General: WNWD, NAD Eyes: conjunctivae are pink, and moist. No exopthalmos, lag, or stare Neck: The thyroid is normal in size, non tender, no palpable nodules Lymphatic: no cervical or supraclavicular adenopathy Cardiovascular: regular rate and rhythm Respiratory: full sounds bilaterally with normal expansion Gastrointestinal: soft, non-tender Musculoskeletal: no spinal tenderness Skin: normal, no rashes present Neurologic: DTR s normal with normal recovery phase, EOMI, no tremor with outstretched hands Pyschiatric: mood and affect are normal DATA REVIEW: Labs: Latest Ref Rng 02/09/2024 04/06/2024 07/15/2024 02/09/2025 Protein, Total 6.3 - 8.0 g/dL 7.2 7.2 7.0 Albumin 3.9 - 4.9 g/dL 4.4 4.5 4.3 Calcium 8.5 - 10.2 mg/dL 9.7 9.8 10.0 9.7 Bilirubin, Total 0.2 - 1.3 mg/dL 0.4 0.3 0.4 Alkaline Phosphatase 34 - 123 U/L 149 (H) 109 89 AST 13 - 35 U/L 20 17 19 ALT 7 - 38 U/L 13 9 12 Glucose 74 - 99 mg/dL 81 87 95 84 BUN 7 - 21 mg/dL 20 21 22 (H) 17 Creatinine 0.58 - 0.96 mg/dL 0.62 0.51 (L) 0.64 0.64 Sodium 136 - 144 mmol/L 140 139 142 139 Potassium 3.7 - 5.1 mmol/L 3.6 (L) 4.2 3.6 (L) 4.1 Chloride 98 - 107 mmol/L 104 104 105 103 CO2 22 - 30 mmol/L 25 25 25 23 Anion Gap 8 - 15 mmol/L 11 10 12 13 eGFR >=60 mL/min/1.73m 90 93 88 88 Vitamin D 25 Hydroxy 31.0 - 80.0 ng/mL 65.2 62.0 Magnesium 1.7 - 2.3 mg/dL 2.4 (H) Legend: (H) High (L) Low DXA: 08/17/2023 Personally reviewed images of the DXA scan DXA Model: [employer] - STARFACE Discovery C 34028 Date Scanned: 08/17/2023 1:49 PM CLINICAL HISTORY: DIAGNOSTIC Postmenopausal status . RISK FACTORS FOR OSTEOPOROSIS AND ASSOCIATED FRACTURES REPORTED BY THIS PATIENT: Please refer to Bone Health Questionnaire in the EMR CURRENT THERAPY: Please refer to Bone Health Questionnaire in the EMR TECHNICAL LIMITATIONS: right hip fracture/surgery RESULTS: Lumbar spine (L1, L2, L3, L4): 0.936 g/cm2, T-score -1.0, Z-score 1.7 Lumbar spine: 2018: 0.864 g/cm2 Left Femoral Neck: 0.552 g/cm2, T-score -2.7, Z-score -0.3 Left Femoral Neck: 2018: 0.561 g/cm2 Left Total Hip: 0.672 g/cm2, T-score -2.2, Z-score -0.1 Left Total Hip: 2018: 0.722 g/cm2 CHANGE IS STATISTICALLY SIGNIFICANT IN THE SPINE OR HIP IF GREATER THAN OR EQUAL TO 0.04 g/cm2 VERTEBRAL FRACTURE ASSESSMENT Not performed. TRABECULAR BONE ASSESSMENT TBS score: 1.234 Bone micro-architecture: Partially degraded (1.231 - 1.310) IMPRESSION: THE LOWEST T-SCORE IS -2.7 IN THE LEFT HIP 1) DIAGNOSIS (based on BMD alone): OSTEOPOROSIS Assessment/plan: Radha Baldwin is a 85 year old female who presents for evaluation of bone health. History is significant for femoral fractures while she was on Bisphosphonates Risk factors include age, post menopausal status. No other reason known from history, but she has multiple fractures in the past She had prolonged use of Bisphosphonates with fosamax from 2002 to 2011, and then on forteo for 16 months until 2013, followed by several doses of reclast annually from 02/2014 to 07/2023. No other evaluation was available in chart From chart review, it appears there was improvement in BMD from 2002 to 2007 and then to 2012. But her fractures appear to be AFF Her calcium intake has been adequate. Hence I advised her to do bone labs. She cannot do 24 hr urine collection due to incontinence issues Instructions given for blood draw Encouraged weight bearing exercise Continue calcium, D replacement except for when advised to hold Depending on the labs, we shall discuss further management. If the drug is still lingering, we may manage with a drug [place] If using medications, will look into [place]. This medication duration of therapy, frequency of dose, contraindications, mechanism etc reviewed Follow up in 1 week Rmaone Dorman MD Endocrinology Associate Staff [facility] Endocrinology and Metabolism [place] [phone] Medical Decision Making: Problems: Moderate: 1+ chronic illnesses with change and New problem with uncertain prognosis Data: Unique test result(s) reviewed: 3+ Unique test(s) ordered: 3+ Medical Decision Making Level: 4 - Moderate documented in this encounter [facility] 04-04-2025 Progress note [facility] 04-04-2025 Progress note Note Date/Time April 04, 2025 2:50pm [facility] [address] [place] [address] OFFICE VISIT Date of Service: 04/04/25 MR#: [id number] Acct: [id number] Name: RADHA BALDWIN Rep #: [id number] : 1940 Provider: ANAND Yoon Age/Sex: 84/F [facility] [email or web address] Status: Signed Intake Vital Signs 03/02/25 12:59 04/04/25 14:12 Height 5 ft 2 in 5 ft 2 in Weight: 125 lb BMI 22.8 Intake Visit Reasons: LEFT KNEE Chief Complaint: 1st Euflexxa left knee injection Accompanied by: Self Is patient in pain?: Yes Pain scale (1-10): 3 Allergies fentanyl Allergy (Verified 04/04/25 14:18) Itching codeine Adverse Reaction (Verified 04/04/25 14:18) Nausea/Vom/Diarrhea Penicillins Adverse Reaction (Verified 04/04/25 14:18) Unknown Medications ?Medication ?Instructions ?Recorded ?Confirmed ?Type cholecalciferol (vitamin D3) 25 1,000 unit PO BID Supp lement 10/19/15 04/04/25 History mcg (1,000 unit) tablet clopidogrel 75 mg tablet 75 mg PO DAILY antiplatelet #30 05/20/17 04/04/25 Rx tabs ascorbate calcium (vitamin C) 500 500 mg PO BID Supple ment 03/21/20 04/04/25 History mg tablet aspirin 81 mg tablet,delayed 81 mg PO DAILY Heart Heal th 03/21/20 04/04/25 History release (Adult Aspirin Regimen) nitroglycerin 0.4 mg sublingual 0.4 mg sublingual Q5-1 5M PRN chest 03/21/20 04/04/25 History tablet pain vitamin E (dl, acetate) 180 mg 400 unit PO DAILY Suppl ement 03/21/20 04/04/25 History (400 unit) capsule fluticasone propionate 50 1 spray intranasal DAILY PRN 08/28/23 04/04/25 History mcg/actuation nasal allergy symptoms spray,suspension (24 Hour Allergy Relief) rosuvastatin 5 mg tablet (Crestor) 5 mg PO DAILY Kelly sterol 08/28/23 04/04/25 History acetaminophen 500 mg tablet 1,000 mg (2 x 500 mg) PO Q 6H PRN 09/18/23 04/04/25 Rx PRN Pain Score 1-10 #0 tabs potassium chloride 20 mEq 20 meq PO BIDCM 30 days #60 tabs 09/18/23 04/04/25 Rx tablet,extended release(part/cryst) magnesium 250 mg tablet 500 mg PO QDAY 11/10/2403/11 History montelukast 10 mg tablet 10 mg PO QDAY 02/03/2504/04 History omeprazole 20 mg capsule,delayed 20 mg PO QDAY 5 04/04/25 History release venlafaxine 75 mg capsule,extended 75 mg PO QDAY 02/0304/04/25 History release 24 hr Have you fallen in the past year?: No PFSH Medical History History of fracture of femur Nonobstructive atherosclerosis of coronary artery Hyperlipidemia GERD (gastroesophageal reflux disease) IBS (irritable bowel syndrome) Osteoporosis History of CVA (cerebrovascular accident) (06/19/17) Osteoarthritis Surgical History History of tubal ligation History of surgery on lower extremity History of tonsillectomy and adenoidectomy History of left heart catheterization (03/26/20) History of total hip arthroplasty Family History Other Heart disease Social History household members: none Smoking Status: Former smoker alcohol intake: never substance use type: does not use HPI LEFT KNEE Details: This documentation accurately reflects the service provided and the decisions made by me, Sofia Yoon, LEAD DESIGNER-C 04/04/25 1412. Part of today?s visit was documented by Karli Esquivel MA, acting as scribe. RADHA BALDWIN is a 84 year old F here today for 1st euflexxa left knee injection Agree with above: Patient states that she has been having trouble weight bearing and increased arthritis flare symptoms on her left knee. She doesn't trust herself going up stairs due to sensation of instability, able to ascend single step at a time, no difficulty with these steps. Patient was use a straight cane on as needed basis if needed, she has handrails near her steps which are all that she uses. Has had good sx mgmt with [facility] in the past. Patient frustrated with insurance and specialty pharmacy process, stated was waiting for single dose of gel injection, however wanted to initiate the viscosupplementation so is in agreement to pursue the Euflexxa series of 3 injections over 3 weeks. ROS Const All systems reviewed & are unremarkable except as noted in H and other (A&O x 3,no apparent distress. No recent illness.) ENT Denies dizziness Card Denies chest pain, Denies dyspnea, Denies edema and Reports other (No palpitations) Resp Denies cough, Denies dyspnea and Reports other (No recent URI) GI Reports system reviewed and no additional complaints, except as documented, Denies nausea and Denies vomiting Musc Reports as per HPI, Reports abnormal gait, Reports arthralgias and Reports limited range of motion Neuro Yes abnormal gait and No dizziness Psych Reports system reviewed and no additional complaints, except as documented Manny/Lymph Denies easy bleeding and Denies easy bruising Ortho Exam General General: Yes no acute distress and Yes well groomed Neurologic: Yes alert and Yes oriented x3 Psychologic: Yes reasonable and appropriate Left Knee KNEE: Skin is pink, warm, dry and intact. There is no ecchymosis or skin discoloration noted, minimal swelling. Visible and palpable medial knee hypertrophy Range of motion: 0-120, stiff with extension 10 to 0 and flexion >110 Palpation: Tender over medial joint line Lower leg is soft, nontender, easily compressible, Homans negative Positive crepitus palpated during today's exam Gait: Ambulatory with antalgic gait without use of assistive devices Full range of distal joints with no symptom aggravation Distal motor or sensory intact with brisk cap refill at 2-3 seconds Office Procedures Euflexxa Procedure Details:: We discussed risk and benefits of injectable supplementation. Obtained written and oral consent for injection. Under sterile conditions, skin was prepped withBetadine and alcohol prep, topical pain ease spray applied; injected the patient's left knee with Euflexxa, # 1/3 and was easily administered and tolerated well using a 22g 1 1/2" needle to the lateral joint space with knee flexed at 90 degrees. The patient tolerated the injection well without any noted complication, No bleeding post injection, dry sterile bandage applied. Patient should call our office if redness develops, pain worsens or if they haveany concerns. Is this Buy & Bill?: Yes Office Meds Euflexxa 10 mg/mL (mw 2.4-3.6 million) intra-articular syringe Performing Provider: ANAND Stern Performing Location: [facility] Administered by: ANAND Stern on 04/04/25 14:21 Dose Route Admin Location Dispensed Lot Number Expiration Date NDC Core Shaper 20 mg intra-articular left knee 2 mL [id number] 05/29/26 [address]-7 [employer] [employer] Coding Level of Care Code Off vis,est,level 3 Diagnoses Osteoarthritis, localized, knee M17.10 Assessment and Plan Assessment and Plan (1) Osteoarthritis, localized, knee: Status: Acute Plan: Symptom control with OTC Tylenol arthritis per package directions, use of topical Voltaren gel up to 4 times daily Knee sleeve prn, straight cane prn for balance/support Encourage light activity today, resume normal activities tomorrow and advance astolerated Plan for follow-up here in 1 week for Euflexxa No. 2/3 to the left knee We discussed activity modification and avoid aggravating activity. In agreement with plan of care This document has been transcribed using PadMatcher dictation software. There may beincorrect words, spelling, and punctuation. Orders: Orders Euflexxa Injection Today Clinical Quality Measures Falls Risk Screening/Assistive Devices Have you fallen in the past year?: No 04/04/25 3270 <Electronically signed by Sofia MICHEL> Date _ Sofia MICHEL Cosigner Signature: Date (if applicable) CC: ~ [facility] Work Phone: [phone] Telephone encounter Note* Telephone Encounter - Radha Pablo LPN - 04/03/2025 3:35 PM EDT Patient notified of providers message and verbalized understanding. Patient states she does not have urology appt yet. She states schedulers wanted to schedule out of town and she would like this consult to be in [place] with Dr Stern due to travel distance from my home. Referral has been sent asrequested [facility]08-[facility] Miscellaneous Notes* Telephone Encounter - Radha Pablo LPN - 04/03/2025 3:35 PM EDT Patient notified of providers message and verbalized understanding. Patient states she does not have urology appt yet. She states schedulers wanted to schedule out of town and she would like this consult to be in [place] with Dr Stern due to travel distance from my home. Referral has been sent asrequested * Telephone Encounter - Misael Lara APRN.CNS - 04/03/2025 10:31 AM EDT Please let her know that urine culture was positive. Will send in cephalexin to pharmacy. Verify she is seeing urology. [facility] Telephone encounter Note * Telephone Encounter - Radha Pablo LPN - 04/03/2025 2:56 PM EDT Addressed in another encounter [facility]08-25-2025 Miscellaneous Notes* Telephone Encounter - aRdha Pablo LPN - 04/03/2025 2:56 PM EDT Addressed in another encounter documented in this encounterF[facility] Telephone encounter Note * Telephone Encounter - Misael Lara APRN.CNS - 04/03/2025 10:31 AM EDT Please let her know that urine culture was positive. Will send in cephalexin to pharmacy. Verify she is seeing urology. [facility]08-04-2025 Telephone encounter Note* Telephone Encounter - Georgette Berrios MA - 03/13/2025 11:02 AM EDT Pt informed. Please schedule pt with urology Georgette Berrios MA [facility]08-04-2025 Miscellaneous Notes* Telephone Encounter - Georgette Berrios MA - 03/13/2025 11:02 AM EDT Pt informed. Please schedule pt with urology Georgette Berrios MA * Telephone Encounter - Misael Lara APRN.CNS - 03/13/2025 9:07 AM EDT Recommend she come into the lab for urinalysis with culture as indicated. Sent a prescription for cephalexin which she can start today once she has completed the urinalysis. Recommend an appointment with urology for recurrent, please schedule. * Telephone Encounter - Maryjo Tao RN - 03/13/2025 8:33 AM EDT Patient calls with update since completing Bactrim DS for UTI. Patient reports she completed the Bactrim DS 10 days as ordered. Five days after completing the antibiotic symptoms have returned. Patient reports she is having burning with urination, frequency, and unable to make it to the bathroom at times as when she has to go it comes on quick. Afebrile. Patient reports provider was going to send in further antibiotic if symptoms didn't improve. Pharmacy is [facility] in [place]. Please review and advise, Maryjo Tao RN documented in [facility] Telephone encounter Note * Telephone Encounter - Misael Lara APRN.CNS - 03/13/2025 9:07 AM EDT Recommend she come into the lab for urinalysis with culture as indicated. Sent a prescription for cephalexin which she can start today once she has completed the urinalysis. Recommend an appointment with urology for recurrent, please schedule. [facility]08-04-2025 Telephone encounter Note* Telephone Encounter - Maryjo Tao RN - 03/13/2025 8:33 AM EDT Patient calls with update since completing Bactrim DS for UTI. Patient reports she completed the Bactrim DS 10 days as ordered. Five days after completing the antibiotic symptoms have returned. Patient reports she is having burning with urination, frequency, and unable to make it to the bathroom at times as when she has to go it comes on quick. Afebrile. Patient reports provider was going to send in further antibiotic if symptoms didn't improve. Pharmacy is [facility] in [place]. Please review and advise, Maryjo Tao RN [facility]07-19-2025 Telephone encounter Note* Telephone Encounter - Trav Guzmán RN - 02/25/2025 11:22 AM EDT Notified patient. [facility]07-19-2025 Miscellaneous Notes* Telephone Encounter - Trav Guzmán RN - 02/25/2025 11:22 AM EDT Notified patient. * Telephone Encounter - Jonny Torres MD - 02/25/2025 11:14 AM EDT Reviewed record. Patient with recurrent UTIs and grew Proteus so will extend to 7 day course of treatment. The following approved medication requests have been transmitted electronically. Requested Prescriptions Signed Prescriptions Disp Refills sulfamethoxazole-trimethoprim (BACTRIM DS) 800-160 mg per tablet 8 tablet 0 Sig: Take 1 tablet by mouth two times a day for 4 days. Authorizing Provider: JONNY TORRES MD * Telephone Encounter - Trav Guzmán RN - 02/25/2025 10:44 AM EDT Pt reports her urine culture shows: >=100,000 CFU/ml Proteus mirabilis Pt reports she was prescribed 3 days of bactrim and will take last pill today. Reports her s/s haveimproved and she feels much better, but since it's Proteus mirabilis, pt asking if provider can prescribe more bactrim, since she was only prescribed a 3 day supply? Reports her pharmacy closes at 1 pm today: [facility], and she does not want to use a different pharmacy. Please advise and phone pt with reply: [phone] * Result Encounter Note - Halle Reilly APRN.CNP - 02/25/2025 10:25 AM EDT Patient prescribed Bactrim DS; bacteria susceptible to antibiotic. documented in this encounterF[facility] Telephone encounter Note * Telephone Encounter - Jonny Torres MD - 02/25/2025 11:14 AM EDT Reviewed record. Patient with recurrent UTIs and grew Proteus so will extend to 7 day course of treatment. The following approved medication requests have been transmitted electronically. Requested Prescriptions Signed Prescriptions Disp Refills sulfamethoxazole-trimethoprim (BACTRIM DS) 800-160 mg per tablet 8 tablet 0 Sig: Take 1 tablet by mouth two times a day for 4 days. Authorizing Provider: JONNY TORRES MD [facility]07-19-2025 Telephone encounter Note* Telephone Encounter - Trav Guzmán RN - 02/25/2025 10:44 AM EDT Pt reports her urine culture shows: >=100,000 CFU/ml Proteus mirabilis Pt reports she was prescribed 3 days of bactrim and will take last pill today. Reports her s/s haveimproved and she feels much better, but since it's Proteus mirabilis, pt asking if provider can prescribe more bactrim, since she was only prescribed a 3 day supply? [facility], and she does not want to use a different pharmacy. Please advise and phone pt with reply: [phone] T [facility]07-19-2025 Progress note* Result Encounter Note - Halle Reilly APRN.CNP - 02/25/2025 10:25 AM EDT Patient prescribed Bactrim DS; bacteria susceptible to antibiotic. T [facility] Work Phone: [phone]) [phone] Telephone encounter Note* Telephone Encounter - Kenny Pandey APRN.CNP - 02/23/2025 10:06 AM EDT UTI symptoms, awaiting urine results, will start bactrim while awaiting results. Thank you Kenny Pandey APRN.CNP [facility]07-17-2025 Miscellaneous Notes* Telephone Encounter - Kenny Pandey APRN.CNP - 02/23/2025 10:06 AM EDT UTI symptoms, awaiting urine results, will start bactrim while awaiting results. Thank you Kenny Pandey APRN.CNP documented in this encounterFulton [facility]07-17-2025 Instructions* Patient Instructions* Victoriano Smith APRN.CNP - 02/23/2025 8:04 AM EDT Complete urine samples at [facility] as discussed If antibiotics are warranted we will initiate and communicate through [place] Maintain good hydration Take showers instead of tub baths Avoid feminine hygiene sprays and scented douches Wipe Urethra front to back If urine culture negative and symptoms persist recommend follow up with Urology documented in this encounterFulton [facility]07-17-2025 NoteHNO ID: [id number] Author: VICTORIANO SMITH APRN.CNP Service: ? Author Type: Nurse Practitioner Type: Progress Notes Filed: 02/23/2025 08:04 Note Text: Telemedicine Visit - Distance Health Virtual Visit Note Patient seen on [employer] Zoom Video Visit platform. Location of patient: [place] I have communicated my name and active licensure. The patient's identity and physical location were verified at the time of this visit. Either the patient or their legal printing sales representative has been informed of the risks and benefits of -- and alternatives to -- treatment through a remote evaluation and consents to proceed with the evaluation remotely. History of Present Illness Radha Baldwin is a 84 year old female with a history of UTI symptoms for 1 days. Urinary symptoms ROS: Positive for: Bladder pressure, Cloudy urine, Dysuria, Increase in frequency of urination, and Urgency Negative for: Abdominal pain , Back/Flank pain, Diarrhea, Fevers, Sense of incomplete void, and Vomiting /Lactating: n/a Sexually active: No LMP: n/a Number of previous UTI's in last 6 months: 2 Number of previous UTI's in last 12 months: 3 Alleviating Factors include Increasing fluids with no relief in symptoms. PAST MEDICAL HISTORY Diagnosis Date CVA (cerebral vascular accident) ([facility]) 06/02/2017 [facility] acute ischemic right posterior putamen stroke on MRI ASA, Plavix atorvastatin. Follow up with Dr. [facility] scheduled. 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 May 2017; treated at [facility] Irritable bowel syndrome Osteoporosis, unspecified Stroke ([facility]) Thoracic or lumbosacral neuritis or radiculitis, unspecified Unspecified constipation Constipation PAST SURGICAL HISTORY Procedure Laterality Date ABDOMINAL SURGERY HX COLONOSCOPY 06/17/2022 repeat in 10 years COLONOSCOPY W/BIOPSY SINGLE/MULTIPLE 02/08/2013 normal appearing DILATION AND CURETTAGE DXAND/THER NONOBSTETRIC Dilation AND curettage EGD 06/17/2022 EGD TRANSORAL BIOPSY SINGLE/MULTIPLE 02/08/2013 duodenitis, gastritis JOINT REPLACEMENT HX LIG/TRNSXJ FLP TUBE ABDL/VAG APPR UNI/BI Tubal ligation TONSILLECTOMY HX TONSILLECTOMY PRIMARY/SECONDARY Tonsillectomy FAMILY HISTORY Problem Relation Age of Onset Cancer Father stomach Heart Father Social History Tobacco Use Smoking status: Former Current packs/day: 1.00 Average packs/day: 1 pack/day for 5.0 years (5.0 ttl pk-yrs) Types: Cigarettes Smokeless tobacco: Never Tobacco comments: Quit smoking in the 1970's Vaping Use Vaping status: Never Used Substance Use Topics Alcohol use: No Drug use: No ALLERGIES Allergen Reactions Fentanyl Itching Codeine GI Upset Penicillins Unknown Current Outpatient Medications Medication Sig coenzyme Q10 (COQ-10) 100 mg cap capsule Take 1 capsule by mouth two times a day. (Or 200 mg once daily) gabapentin (NEURONTIN) 100 mg capsule Take 1 capsule by mouth daily at bedtime. rosuvastatin (CRESTOR) 5 mg tablet Take 1 tablet by mouth daily at bedtime. mometasone (NASONEX) 50 mcg/actuation nasal spray Use 2 Sprays in each nostril once daily. INSTILL 2 SPRAYS IN EACH NOSTRIL ONCE DAILY montelukast (SINGULAIR) 10 mg tablet Take 1 tablet by mouth every afternoon. DULoxetine (CYMBALTA) 20 mg capsule Take 1 capsule by mouth once daily. potassium chloride (K-TAB) 10 mEq tablet Take 1 tablet by mouth two times a day. clopidogrel (PLAVIX) 75 mg tablet Take 1 tablet by mouth once daily. pantoprazole DR (PROTONIX) 40 mg tablet Take 1 tablet by mouth two times a day. Take on empty stomach, 1/2 hr before meal. (Patient taking differently: Take 40 mg by mouth once daily. Take on empty stomach, 1/2 hr before meal.) naproxen (NAPROSYN) 250 mg tablet 4 TIMES DAILY NEEDED scopolamine (TRANSDERM-SCOP) patch 1.5 mg/72 hr (1 mg over 3 days) Apply 1 Patch as directed every 72 hours. nitroglycerin sublingual (NITROQUICK) 0.4 mg SL tablet Dissolve 0.4mg tab (1tab) under tongue every 5min as needed for chest pain. If no response after max 3 tabs go to ED/notify doctor. fluticasone (FLONASE) 50 mcg/actuation nasal spray Use 1 [place] in each nostril once daily. For allergy season (Patient not taking: Reported on 10/16/2024) meclizine (ANTIVERT) 25 mg tab Take 2 tablets by mouth once daily as needed (dizziness/motion sickness). polypodium leucotomos extract (HELIOCARE ORAL) Take 1 tablet by mouth as needed (Hold during the winter). SENNOSIDES/DOCUSATE SODIUM (SENOKOT-S ORAL) Take 1 Dose by mouth once daily as needed. Cholecalciferol, Vitamin D3, 25 mcg (1,000 unit) cap Take 1,000 Units by mouth two times a day. ascorbic acid(VITAMIN C 500 MG TAB) Take one(1) tablet two(2) times daily. acetaminophen(TYLE (more content not included)...[facility] 02-23-2025 History of Present illness Narrative* Victoriano Smith APRN.ASSOCIATE PROPERTY MANAGER - 02/23/2025 7:55 AM EDT Telemedicine Visit - Distance Health Virtual Visit Note Patient seen on [employer]MobileGamer (TMG) Video Visit platform. Location of patient: [place] I have communicated my name and active licensure. The patient's identity and physical location wereverified at the time of this visit. Either the patient or their legal printing sales representative has been informed of the risks and benefits of -- and alternatives to -- treatment through a remote evaluation andconsents to proceed with the evaluation remotely. History of Present Illness Radha Baldwin is a 84 year old female with a history of UTI symptoms for 1 days. Urinary symptoms ROS: Positive for: Bladder pressure, Cloudy urine, Dysuria, Increase in frequency of urination, and Urgency Negative for: Abdominal pain , Back/Flank pain, Diarrhea, Fevers, Sense of incomplete void, and Vomiting /Lactating: n/a Sexually active: No LMP: n/a Number of previous UTI's in last 6 months: 2 Number of previous UTI's in last 12 months: 3 Alleviating Factors include Increasing fluids with no relief in symptoms. PAST MEDICAL HISTORY Diagnosis Date CVA (cerebral vascular accident) ([facility]) 06/02/2017 [facility] acute ischemic right posterior putamen stroke on MRI ASA, Plavix atorvastatin. Follow up with Dr. [facility] scheduled. 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 May 2017; treated at [facility] Irritable bowel syndrome Osteoporosis, unspecified Stroke ([facility]) Thoracic or lumbosacral neuritis or radiculitis, unspecified Unspecified constipation Constipation PAST SURGICAL HISTORY Procedure Laterality Date ABDOMINAL SURGERY HX COLONOSCOPY 06/17/2022 repeat in 10 years COLONOSCOPY W/BIOPSY SINGLE/MULTIPLE 02/08/2013 normal appearing DILATION & CURETTAGE DX&/THER NONOBSTETRIC Dilation & curettage EGD 06/17/2022 EGD TRANSORAL BIOPSY SINGLE/MULTIPLE 02/08/2013 duodenitis, gastritis JOINT REPLACEMENT HX LIG/TRNSXJ FLP TUBE ABDL/VAG APPR UNI/BI Tubal ligation TONSILLECTOMY HX TONSILLECTOMY PRIMARY/SECONDARY <AGE 12 Tonsillectomy FAMILY HISTORY Problem Relation Age of Onset Cancer Father stomach Heart Father Social History Tobacco Use Smoking status: Former Current packs/day: 1.00 Average packs/day: 1 pack/day for 5.0 years (5.0 ttl pk-yrs) Types: Cigarettes Smokeless tobacco: Never Tobacco comments: Quit smoking in the 1970's Vaping Use Vaping status: Never Used Substance Use Topics Alcohol use: No Drug use: No ALLERGIES Allergen Reactions Fentanyl Itching Codeine GI Upset Penicillins Unknown Current Outpatient Medications Medication Sig coenzyme Q10 (COQ-10) 100 mg cap capsule Take 1 capsule by mouth two times a day. (Or 200 mg once daily) gabapentin (NEURONTIN) 100 mg capsule Take 1 capsule by mouth daily at bedtime. rosuvastatin (CRESTOR) 5 mg tablet Take 1 tablet by mouth daily at bedtime. mometasone (NASONEX) 50 mcg/actuation nasal spray Use 2 Sprays in each nostril once daily. INSTILL 2 SPRAYS IN EACH NOSTRIL ONCE DAILY montelukast (SINGULAIR) 10 mg tablet Take 1 tablet by mouth every afternoon. DULoxetine (CYMBALTA) 20 mg capsule Take 1 capsule by mouth once daily. potassium chloride (K-TAB) 10 mEq tablet Take 1 tablet by mouth two times a day. clopidogrel (PLAVIX) 75 mg tablet Take 1 tablet by mouth once daily. pantoprazole DR (PROTONIX) 40 mg tablet Take 1 tablet by mouth two times a day. Take on empty stomach, 1/2 hr before meal. (Patient taking differently: Take 40 mg by mouth once daily. Take on empty stomach, 1/2 hr before meal.) naproxen (NAPROSYN) 250 mg tablet 4 TIMES DAILY NEEDED scopolamine (TRANSDERM-SCOP) patch 1.5 mg/72 hr (1 mg over 3 days) Apply 1 Patch as directed every 72 hours. nitroglycerin sublingual (NITROQUICK) 0.4 mg SL tablet Dissolve 0.4mg tab (1tab) under tongue [id number] as needed for chest pain. If no response after max 3 tabs go to ED/notify doctor. fluticasone (FLONASE) 50 mcg/actuation nasal spray Use 1 [place] in each nostril once daily. For allergy season (Patient not taking: Reported on 10/16/2024) meclizine (ANTIVERT) 25 mg tab Take 2 tablets by mouth once daily as needed (dizziness/motion sickness). polypodium leucotomos extract (HELIOCARE ORAL) Take 1 tablet by mouth as needed (Hold during the winter). SENNOSIDES/DOCUSATE SODIUM (SENOKOT-S ORAL) Take 1 Dose by mouth once daily as needed. Cholecalciferol, Vitamin D3, 25 mcg (1,000 unit) cap Take 1,000 Units by mouth two times a day. ascorbic acid(VITAMIN C 500 MG TAB) Take one(1) tablet two(2) times daily. acetaminophen(TYLENOL ARTHRITIS PAIN 650 MG TAB) Take two(2) tablets twice daily. VITAMIN E 400IU SOFTGEL Take one(1) capsule twice daily. No current facility-administered medications for this visit. Video Exam (Examination performed via Video enabled technology) General Appearance: Well in appearance Alert, oriented, pleasant, in NAD: Yes Ill appearing: No Lethargic appearing: No Respiratory distress: No Abdomen: non-tender by self palpation CVA Tenderness: non-tender bilaterally by self palpation ASSESSMENT/PLAN: 1. Recurrent UTI (urinary tract infection) - ICD9: 599.0, ICD10: N39.0 - URINALYSIS, DIPSTICK ONLY - BACTERIAL CULTURE, URINE Complete urine samples at [facility] as discussed If antibiotics are warranted we will initiate and communicate through mychart Maintain good hydration Take showers instead of tub baths Avoid feminine hygiene sprays and scented douches Wipe Urethra front to back If urine culture negative and symptoms persist recommend follow up with Urology Red flags discussed for in person care and follow up, including but not limited to worsening symptoms, hematuria, new back pain, fever, chills, or other concerning symptoms All questions answered Differential Diagnoses - Recurrent UTI (urinary tract infection) is more likely for the following reason(s): suggested by H&P - Pyelonephritis is less likely for the following reason(s): H&P not suggestive Disposition The patient was discharged. Victoriano Smith APRN.CNP documented in this encounterFulton [facility]07-[facility] Instructions* Patient Instructions* Jonny Torres MD - 02/15/2025 2:56 PM EDT documented in this encounterFulton County [facility] Center07-09-2025 NoteHNO ID: [id number] Author: JONNY TORRES MD Service: ? Author Type: Physician Type: Progress Notes Filed: 03/22/2025 01:34 Note Text: This note was created using [employer]ote[employer]. Subjective Ann Marie Baldwin is a 84-year-old female with a history of osteoporosis, presenting for a 6-month follow-up. Ann Marie reports a history of osteoporosis with a T-score of -2.7 in the left hip as of August last year. She has been on Reclast infusions annually for at least 3 years, with the last dose due in July, which she skipped. She notes that the bone density has not improved with Reclast, and she is considering alternative treatments. She mentions doing weight-bearing exercises through daily activities such as caring for her two dogs. She also reports back pain, which has improved significantly after receiving two injections in the SI joint, one on each side. She denies current back pain. Ann Marie has a history of knee arthritis and has been receiving injections, initially Efflexin and Duralane, which provided relief for 7-8 months. She recently switched to steroid injections but discontinued them due to headaches. She reports a recent fall in a parking lot, resulting in knee pain. X-rays were negative for fractures, but she notes that the pain worsens with weight-bearing and improves with rest. She is scheduled for a follow-up in 2 weeks and is considering further evaluation if the pain persists. Ann Marie has been on Crestor since a stroke and inquires about taking CoQ10 supplements due to fatigue. She is also on Plavix and expresses a desire to discontinue it but acknowledges the risk of falls. She is currently taking Protonix once daily, although prescribed twice daily, and has no issues with refills. She is also on Cymbalta, potassium, and gabapentin, which helps with burning feet and neuropathy. She has started wearing compression stockings, which provide some relief. PAST MEDICAL HISTORY Diagnosis Date CVA (cerebral vascular accident) (HCC) 06/02/2017 [facility] acute ischemic right posterior putamen stroke on MRI ASA, Plavix atorvastatin. Follow up with Dr. Witt scheduled. 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 May 2017; treated at [facility] Irritable bowel syndrome Osteoporosis, unspecified Stroke (HCC) Thoracic or lumbosacral neuritis or radiculitis, unspecified Unspecified constipation Constipation Current Outpatient Medications Medication Sig mometasone (NASONEX) 50 mcg/actuation nasal spray Use 2 Sprays in each nostril once daily. INSTILL 2 SPRAYS IN EACH NOSTRIL ONCE DAILY montelukast (SINGULAIR) 10 mg tablet Take 1 tablet by mouth every afternoon. DULoxetine (CYMBALTA) 20 mg capsule Take 1 capsule by mouth once daily. potassium chloride (K-TAB) 10 mEq tablet Take 1 tablet by mouth two times a day. clopidogrel (PLAVIX) 75 mg tablet Take 1 tablet by mouth once daily. pantoprazole DR (PROTONIX) 40 mg tablet Take 1 tablet by mouth two times a day. Take on empty stomach, 1/2 hr before meal. (Patient taking differently: Take 40 mg by mouth once daily. Take on empty stomach, 1/2 hr before meal.) naproxen (NAPROSYN) 250 mg tablet 4 TIMES DAILY NEEDED scopolamine (TRANSDERM-SCOP) patch 1.5 mg/72 hr (1 mg over 3 days) Apply 1 Patch as directed every 72 hours. nitroglycerin sublingual (NITROQUICK) 0.4 mg SL tablet Dissolve 0.4mg tab (1tab) under tongue every 5min as needed for chest pain. If no response after max 3 tabs go to ED/notify doctor. meclizine (ANTIVERT) 25 mg tab Take 2 tablets by mouth once daily as needed (dizziness/motion sickness). polypodium leucotomos extract (HELIOCARE ORAL) Take 1 tablet by mouth as needed (Hold during the winter). SENNOSIDES/DOCUSATE SODIUM (SENOKOT-S ORAL) Take 1 Dose by mouth once daily as needed. Cholecalciferol, Vitamin D3, 25 mcg (1,000 unit) cap Take 1,000 Units by mouth two times a day. ascorbic acid(VITAMIN C 500 MG TAB) Take one(1) tablet two(2) times daily. acetaminophen(TYLENOL ARTHRITIS PAIN 650 MG TAB) Take two(2) tablets twice daily. VITAMIN E 400IU SOFTGEL Take one(1) capsule twice daily. coenzyme Q10 (COQ-10) 100 mg cap capsule Take 1 capsule by mouth two times a day. (Or 200 mg once daily) gabapentin (NEURONTIN) 100 mg capsule Take 1 capsule by mouth daily at bedtime. rosuvastatin (CRESTOR) 5 mg tablet Take 1 tablet by mouth daily at bedtime. fluticasone (FLONASE) 50 mcg/actuation nasal spray Use 1 [place] in each nostril once daily. For allergy season (Patient not taking: Reported on 10/16/2024) No current facility-administered medications for this visit. FAMILY HISTORY Problem Relation Age of Onset Cancer Father stomach Heart Father Review of Systems Objective BP 174/74 (BP Site: Left (more content not included)...[facility]07-09-2025 History of Present illness Narrative* Jonny Torres MD - 02/15/2025 2:24 PM EDT This note was created using Soteirariter. Subjective Ann Marie Baldwin is a 84-year-old female with a history of osteoporosis, presenting for a 6-month follow-up. Ann Marie reports a history of osteoporosis with a T-score of -2.7 in the left hip as of August last year. She has been on Reclast infusions annually for at least 3 years, with the last dose due in July, which she skipped. She notes that the bone density has not improved with Reclast, and she is considering alternative treatments. She mentions doing weight-bearing exercises through daily activities such as caring for her two dogs. She also reports back pain, which has improved significantly after receiving two injections in the SI joint, one on each side. She denies current back pain. Ann Marie has a history of knee arthritis and has been receiving injections, initially Efflexin and Duralane, which provided relief for 7-8 months. She recently switched to steroid injections but discontinued them due to headaches. She reports a recent fall in a parking lot, resulting in knee pain. X-rays were negative for fractures, but she notes that the pain worsens with weight-bearing and improves with rest. She is scheduled for a follow-up in 2 weeks and is considering further evaluation if the pain persists. Ann Marie has been on Crestor since a stroke and inquires about taking CoQ10 supplements due to fatigue. She is also on Plavix and expresses a desire to discontinue it but acknowledges the risk of falls. She is currently taking Protonix once daily, although prescribed twice daily, and has no issues with r efills. She is also on Cymbalta, potassium, and gabapentin, which helps with burning feet and neuropathy. She has started wearing compression stockings, which provide some relief. PAST MEDICAL HISTORY Diagnosis Date CVA (cerebral vascular accident) (HCC) 06/02/2017 [facility] acute ischemic right posterior putamen stroke on MRI ASA, Plavix atorvastatin. Follow up with Dr. Witt scheduled. 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 May 2017; treated at [facility] Irritable bowel syndrome Osteoporosis, unspecified Stroke ([facility]) Thoracic or lumbosacral neuritis or radiculitis, unspecified Unspecified constipation Constipation Current Outpatient Medications Medication Sig gabapentin (NEURONTIN) 100 mg capsule Take 1 capsule by mouth daily at bedtime for 60 days. rosuvastatin (CRESTOR) 5 mg tablet Take 1 tablet by mouth daily at bedtime. mometasone (NASONEX) 50 mcg/actuation nasal spray Use 2 Sprays in each nostril once daily. INSTILL 2 SPRAYS IN EACH NOSTRIL ONCE DAILY montelukast (SINGULAIR) 10 mg tablet Take 1 tablet by mouth every afternoon. DULoxetine (CYMBALTA) 20 mg capsule Take 1 capsule by mouth once daily. potassium chloride (K-TAB) 10 mEq tablet Take 1 tablet by mouth two times a day. clopidogrel (PLAVIX) 75 mg tablet Take 1 tablet by mouth once daily. pantoprazole DR (PROTONIX) 40 mg tablet Take 1 tablet by mouth two times a day. Take on empty stomach, 1/2 hr before meal. (Patient taking differently: Take 40 mg by mouth once daily. Take on empty stomach, 1/2 hr before meal.) naproxen (NAPROSYN) 250 mg tablet 4 TIMES DAILY NEEDED scopolamine (TRANSDERM-SCOP) patch 1.5 mg/72 hr (1 mg over 3 days) Apply 1 Patch as directed every 72 hours. nitroglycerin sublingual (NITROQUICK) 0.4 mg SL tablet Dissolve 0.4mg tab (1tab) under tongue [id number] as needed for chest pain. If no response after max 3 tabs go to ED/notify doctor. meclizine (ANTIVERT) 25 mg tab Take 2 tablets by mouth once daily as needed (dizziness/motion sickness). polypodium leucotomos extract (HELIOCARE ORAL) Take 1 tablet by mouth as needed (Hold during the winter). SENNOSIDES/DOCUSATE SODIUM (SENOKOT-S ORAL) Take 1 Dose by mouth once daily as needed. Cholecalciferol, Vitamin D3, 25 mcg (1,000 unit) cap Take 1,000 Units by mouth two times a day. ascorbic acid(VITAMIN C 500 MG TAB) Take one(1) tablet two(2) times daily. acetaminophen(TYLENOL ARTHRITIS PAIN 650 MG TAB) Take two(2) tablets twice daily. VITAMIN E 400IU SOFTGEL Take one(1) capsule twice daily. coenzyme Q10 (COQ-10) 100 mg cap capsule Take 1 capsule by mouth two times a day. (Or 200 mg once daily) fluticasone (FLONASE) 50 mcg/actuation nasal spray Use 1 [place] in each nostril once daily. For allergy season (Patient not taking: Reported on 10/16/2024) No current facility-administered medications for this visit. FAMILY HISTORY Problem Relation Age of Onset Cancer Father stomach Heart Father Review of Systems Objective BP 174/74 (BP Site: Left Arm, BP Position: Sitting, BP Cuff Size: Regular Adult) Pulse 74 Wt 55.8 kg (123 lb 0.3 oz) SpO2 96% BMI 22.50 kg/m Physical Exam Constitutional: Appearance: Normal appearance. [...] Content: Thought content normal. Judgment: Judgment normal. Latest Ref Rng 07/15/2024 09/27/2024 02/09/2025 Protein, Total 6.3 - 8.0 g/dL 7.2 7.0 Albumin 3.9 - 4.9 g/dL 4.5 4.3 Calcium 8.5 - 10.2 mg/dL 10.0 9.7 Bilirubin, Total 0.2 - 1.3 mg/dL 0.3 0.4 Alkaline Phosphatase 34 - 123 U/L 109 89 AST 13 - 35 U/L 17 19 ALT 7 - 38 U/L 9 12 Glucose 74 - 99 mg/dL 95 84 BUN 7 - 21 mg/dL 22 (H) 17 Creatinine 0.58 - 0.96 mg/dL 0.64 0.64 Sodium 136 - 144 mmol/L 142 139 Potassium 3.7 - 5.1 mmol/L 3.6 (L) 4.1 Chloride 98 - 107 mmol/L 105 103 CO2 22 - 30 mmol/L 25 23 Anion Gap 8 - 15 mmol/L 12 13 eGFR >=60 mL/min/1.73m 88 88 WBC 3.70 - 11.00 k/uL 7.27 8.88 RBC 3.90 - 5.20 m/uL 3.82 (L) 4.03 Hemoglobin 11.5 - 15.5 g/dL 11.8 12.3 Hematocrit 36.0 - 46.0 % 36.8 39.7 MCV 80.0 - 100.0 fL 96.3 98.5 MCH 26.0 - 34.0 pg 30.9 30.5 MCHC 30.5 - 36.0 g/dL 32.1 31.0 RDW-CV 11.5 - 15.0 % 12.8 13.7 Platelet Count 150 - 400 k/uL 288 289 MPV 9.0 - 12.7 fL 8.8 (L) 9.8 Absolute nRBC <0.01 k/uL <0.01 <0.01 Cholesterol, Total <200 mg/dL 150 128 Triglyceride <150 mg/dL 78 88 HDL Cholesterol >39 mg/dL 55 46 Non HDL Cholesterol <130 mg/dL 95 82 Fasting Time hrs 12 11 VLDL Cholesterol <30 mg/dL 16 13 TC:HDL Ratio <5.10 2.73 2.78 LDL Cholesterol, Calculated <100 mg/dL 79 65 LDL:HDL Ratio <2.54 1.44 1.41 Vitamin D 25 Hydroxy 31.0 - 80.0 ng/mL 58.8 62.0 Magnesium 1.7 - 2.3 mg/dL 2.4 (H) 2.4 (H) Prolactin 4.4 - 33.8 ng/mL 8.3 TSH 0.270 - 4.200 mIU/L 1.410 LH See comment mIU/mL 19.3 Hydroxyprogesterone <=206.00 ng/dL 6.61 FSH See comment mIU/mL 41.2 Progesterone See comment ng/mL <0.2 DHEA-S 12.0 - 154.0 ug/dL 15.3 Legend: (H) High (L) Low Assessment and Plan Jonny Torres MD Recording using [employer] software for draft documentation of the visit was discussed with the patient/authorized printing sales representative; all questions welcomed and answered. Patient/authorized printing sales representative agreed to proceed documented [facility] Radiology Diagnostic study note [facility] Imaging Services [address] [place] [address] [id number] Knee 4 or More Views MR#: [id number] Acct: [id number] Name: RADHA BALDWIN Rep #: [id number] : [id number] F 84 From: Elvin Burrows MD PCP: Dr. Jonny Torres MD Status: RE G CLI Study:Knee 4 or More Views Date of Exam: 02/03/25 Exam# [id number] Ordering Dr: Jada Higgins PROCEDURE: KNEE 4 OR MORE VIEWS 02/03/2025 REASON FOR EXAM: KNEE PAIN TECHNIQUE: KNEE 4 OR MORE VIEWS COMPARISON: None FINDINGS: Bones: No fracture. No suspicious bone lesion. Joints: Mild degree of joint space narrowing of the medial compartment of the knee joint. Effusion: Tiny joint effusion. Soft tissues: No soft tissue swelling. Other: RAD/Knee 4 or More Views IMPRESSION: DEGENERATIVE OSTEOARTHROSIS. NO ACUTE FINDINGS. Tiny joint effusion. Reading Location: [id number] CC: GEORGIANA Munoz; Dr. Jonny Torres MD ~ Power And Recovery Supervisor: Signed [facility]06-16-2025 Telephone encounter Note* Telephone Encounter - Jonny Torres MD - 01/23/2025 6:54 PM EDT Will give more refills at next appointment so will last till then The following approved medication requests have been transmitted electronically. Requested Prescriptions Signed Prescriptions Disp Refills rosuvastatin (CRESTOR) 5 mg tablet 30 tablet 1 Sig: Take 1 tablet by mouth daily at bedtime. Authorizing Provider: JONNY TORRES MD [facility]06-16-2025 Miscellaneous Notes* Telephone Encounter - Jonny Torres MD - 01/23/2025 6:54 PM EDT Will give more refills at next appointment so will last till then The following approved medication requests have been transmitted electronically. Requested Prescriptions Signed Prescriptions Disp Refills rosuvastatin (CRESTOR) 5 mg tablet 30 tablet 1 Sig: Take 1 tablet by mouth daily at bedtime. Authorizing Provider: JONNY TORRES MD * Telephone Encounter - Yecenia Galvan LPN - 01/21/2025 9:58 AM EDT Patient has been identified by name and date of : Yes Patient phones for refill(s): Requested Prescriptions Pending Prescriptions Disp Refills rosuvastatin (CRESTOR) 5 mg tablet 30 tablet 11 Sig: Take 1 tablet by mouth daily at bedtime. Date of last office visit in primary care: 09/27/2024 Date of next office visit in primary care: 02/15/2025 Please advise. Thank you. Yecenia Galvan LPN. documented in this encounterFulton [facility]06-16-2025 Telephone encounter Note * Telephone Encounter - Jonny Torres MD - 01/23/2025 6:50 PM EDT Will give refills at next appointment so will last till next appointment The following approved medication requests have been transmitted electronically. Requested Prescriptions Signed Prescriptions Disp Refills gabapentin (NEURONTIN) 100 mg capsule 30 capsule 1 Sig: Take 1 capsule by mouth daily at bedtime for 60 days. Authorizing Provider: JONNY TORRES MD [facility]06-16-2025 Miscellaneous Notes* Telephone Encounter - Jonny Torres MD - 01/23/2025 6:50 PM EDT Will give refills at next appointment so will last till next appointment The following approved medication requests have been transmitted electronically. Requested Prescriptions Signed Prescriptions Disp Refills gabapentin (NEURONTIN) 100 mg capsule 30 capsule 1 Sig: Take 1 capsule by mouth daily at bedtime for 60 days. Authorizing Provider: JONNY TORRES MD * Telephone Encounter - Yecenia Galvan LPN - 01/21/2025 9:59 AM EDT Patient has been identified by name and date of : Yes Patient phones for refill(s): Requested Prescriptions Pending Prescriptions Disp Refills gabapentin (NEURONTIN) 100 mg capsule 30 capsule 5 Sig: Take 1 capsule by mouth daily at bedtime for 180 days. Date of last office visit in primary care: 09/27/2024 Date of next office visit in primary care: 01/20/2025 Please advise. Thank you. Yecenia Galvan LPN. documented in this encounterFulton [facility]06-14-2025 Telephone encounter Note * Telephone Encounter - Yecenia Galvan LPN - 01/21/2025 9:59 AM EDT Patient has been identified by name and date of : Yes Patient phones for refill(s): Requested Prescriptions Pending Prescriptions Disp Refills gabapentin (NEURONTIN) 100 mg capsule 30 capsule 5 Sig: Take 1 capsule by mouth daily at bedtime for 180 days. Date of last office visit in primary care: 09/27/2024 Date of next office visit in primary care: 01/20/2025 Please advise. Thank you. Yecenia Galvan LPN. [facility]06-14-2025 Telephone encounter Note* Telephone Encounter - Yecenia Galvan LPN - 01/21/2025 9:58 AM EDT Patient has been identified by name and date of : Yes Patient phones for refill(s): Requested Prescriptions Pending Prescriptions Disp Refills rosuvastatin (CRESTOR) 5 mg tablet 30 tablet 11 Sig: Take 1 tablet by mouth daily at bedtime. Date of last office visit in primary care: 09/27/2024 Date of next office visit in primary care: 02/15/2025 Please advise. Thank you. Yecenia Galvan LPN. [facility]06-05-2025 Evaluation note* Diagnosis Onset Date Resolution Status Admit Date Degenerative disc disease, lumbar acute January 12, 2025 1 :57pm Degenerative scoliosis acute [facility] 2024 1:57pm Lumbar stenosis with neurogenic claudication acute January 1:57pm T10 vertebral fracture noneactive [facility] 2024 1:57pm Contusion of right knee, initial encounter acute February 03 2:49pm Acute thigh pain acute February 10:28am Contusion of right knee, initial encounter acute February 14, 2025 10:28am Lower extremity pain, right acute February 14, 2025 10:28am Osteoarthritis, localized, knee acute February 14, 2025 1 0:28am Contusion of right knee, initial encounter acute March 02 12:50pm Osteoarthritis, localized, knee acute March 02, 2025 12:50pm Osteoarthritis, localized, knee acute April 04 2:12pm [facility] Work Phone: 1(654) 567-748006-05-2025 Evaluation note* Diagnosis Onset Date Resolution Status Admit Date Degenerative disc disease, lumbar acute January 12, 2025 1 :57pm Degenerative scoliosis acute [facility] 2024 1:57pm Lumbar stenosis with neurogenic claudication acute January 1:57pm T10 vertebral fracture noneactive [facility] 2024 1:57pm Contusion of right knee, initial encounter acute February 03 2:49pm Acute thigh pain acute February 10:28am Contusion of right knee, initial encounter acute February 14, 2025 10:28am Lower extremity pain, right acute February 14, 2025 10:28am Osteoarthritis, localized, knee acute February 14, 2025 1 0:28am Contusion of right knee, initial encounter acute March 02 12:50pm Osteoarthritis, localized, knee acute March 02, 2025 12:50pm Osteoarthritis, localized, knee acute April 04 2:12pm Osteoarthritis, localized, knee acute April 11 10:53am [facility] Work Phone: 1(934) 307-778306-05-2025 Evaluation note* Diagnosis Onset Date Resolution Status Admit Date Degenerative disc disease, lumbar acute January 12, 2025 1 :57pm Degenerative scoliosis acute [facility] 2024 1:57pm Lumbar stenosis with neurogenic claudication acute January 1:57pm T10 vertebral fracture noneactive [facility] 2024 1:57pm Contusion of right knee, initial encounter acute February 03 2:49pm Acute thigh pain acute February 10:28am Contusion of right knee, initial encounter acute February 14, 2025 10:28am Lower extremity pain, right acute February 14, 2025 10:28am Osteoarthritis, localized, knee acute February 14, 2025 1 0:28am Contusion of right knee, initial encounter acute March 02 12:50pm Osteoarthritis, localized, knee acute March 02, 2025 12:50pm Osteoarthritis, localized, knee acute April 04 2:12pm Osteoarthritis, localized, knee acute April 11 025 10:53am Osteoarthritis, localized, knee acute April 18 025 11:07am UTI (urinary tract infection) acute May 05, 2025 1:48pm [facility] Work Phone: 1(971) 356-438204-18-2025 Progress note* Result Encounter Note - Misael Lara APRN.CNS - 11/25/2024 3:01 PM EDT No MRI evidence of malignancy. [facility]04-18-2025 Miscellaneous Notes* Result Encounter Note - Misael Lara APRN.CNS - 11/25/2024 3:01 PM EDT No MRI evidence of malignancy. documented in this encounterFulton County [facility] Center04-17-2025 History of Present illness Narrative* Justus Salas RT(R) - 11/24/2024 10:15 AM EDT Radiology Service Progress Note PATIENT NAME: Radha Baldwin DATE OF SERVICE: November 24, 2024 TIME: 10:30 AM PATIENT IDENTITY VERIFICATION COMPLETED USING TWO (2) IDENTIFIERS: Name and Date of confirmedby patient verbally. FALL SCREENING: Has the patient had 2 falls in the last year or 1 fall with injury or currently using an Ambulatory Assistive Device (Walker, Cane, Wheelchair, Crutches, etc.)? No PATIENT GENDER DATA: Assigned female at . status: : No status:NO. PATIENT RELEVANT IMPLANT DATA REVIEWED: Not Applicable PATIENT PRESENTS WITH AN IMPLANTABLE OR ATTACHED WOMENS VOLLEYBALL COACH: No RADIOLOGY DEPARTMENT: MR; Exam(s) Completed: Chest: Breast PERIPHERAL IV DATA: Not applicable SIGNED BY: RT Reuben(R) November 24, 2024 10:30 AM documented in this encounterFulton County [facility] Center04-17-2025 NoteHNO ID: [id number] Author: JUSTUS SALAS RT(Libra) Service: Radiology Author Type: Technologist Type: Progress Notes Filed: 11/24/2024 10:30 Note Text: Radiology Service Progress Note PATIENT NAME: Radha Baldwin DATE OF SERVICE: November 24, 2024 TIME: 10:30 AM PATIENT IDENTITY VERIFICATION COMPLETED USING TWO (2) IDENTIFIERS: Name and Date of confirmed by patient verbally. FALL SCREENING: Has the patient had 2 falls in the last year or 1 fall with injury or currently using an Ambulatory Assistive Device (Walker, Cane, Wheelchair, Crutches, etc.)? No PATIENT GENDER DATA: Assigned female at . status: : No status: NO. PATIENT RELEVANT IMPLANT DATA REVIEWED: Not Applicable PATIENT PRESENTS WITH AN IMPLANTABLE OR ATTACHED WOMENS VOLLEYBALL COACH: No RADIOLOGY DEPARTMENT: MR; Exam(s) Completed: Chest: Breast PERIPHERAL IV DATA: Not applicable SIGNED BY: RT Reuben(R) November 24, 2024 10:30 [facility] Evaluation note* Diagnosis Onset Date Resolution Status Admit Date Degenerative disc disease, lumbar acute November 10, 2024 10:56am Degenerative scoliosis acute [facility] 2024 10:56am [facility] Work Phone: 1([phone]) 780-274004-03-2025 Evaluation note* Diagnosis Onset Date Resolution Status Admit Date Degenerative disc disease, lumbar acute November 10, 2024 10:56am Degenerative scoliosis acute [facility] 2024 10:56am Degenerative disc disease, lumbar acute January 12, 2025 1 :57pm Degenerative scoliosis acute [facility] 2024 1:57pm Lumbar stenosis with neurogenic claudication acute January 1:57pm T10 vertebral fracture noneactive [facility] 2024 1:57pm [facility] Work Phone: 1(216) 144-729404-03-2025 Evaluation note* Diagnosis Onset Date Resolution Status Admit Date Degenerative disc disease, lumbar acute November 10, 2024 10:56am Degenerative scoliosis acute Ap ril 2024 10:56am Degenerative disc disease, lumbar acute January 12, 2025 1 :57pm Degenerative scoliosis acute [facility] 2024 1:57pm Lumbar stenosis with neurogenic claudication acute January 1:57pm T10 vertebral fracture noneactive 2024 1:57pm Contusion of right knee, initial encounter acute February 03 2:49pm [facility] Work Phone: [phone]) 130-670104-03-2025 Evaluation note* Diagnosis Onset Date Resolution Status Admit Date Degenerative disc disease, lumbar acute November 10, 2024 10:56am Degenerative scoliosis acute Ap 2024 10:56am Degenerative disc disease, lumbar acute January 12, 2025 1 :57pm Degenerative scoliosis acute [facility] 2024 1:57pm Lumbar stenosis with neurogenic claudication acute January 1:57pm T10 vertebral fracture noneactive 2024 1:57pm Contusion of right knee, initial encounter acute February 03 2:49pm Acute thigh pain acute February 10:28am Contusion of right knee, initial encounter acute February 14, 2025 10:28am Lower extremity pain, right acute February 14, 2025 10:28am Osteoarthritis, localized, knee acute February 14, 2025 1 0:28am [facility] Work Phone: [phone] Telephone encounter Note* Telephone Encounter - Maria Esther Luo LPN - 11/04/2024 3:46 PM EDT Patient returned call and went over results, notes from Kassie Bales Senior Auditor with understanding. She had already picked up the rx on Thursday and is taking the medication. [facility]03-28-2025 Miscellaneous Notes* Telephone Encounter - Maria Esther Luo LPN - 11/04/2024 3:46 PM EDT Patient returned call and went over results, notes from Kassie Bales Senior Auditor with understanding. She had already picked up the rx on Thursday and is taking the medication. * Telephone Encounter - Cristina De Jesus MA - 11/04/2024 3:23 PM EDT Attempted to contact pt, phone call screened, phone rang then got message to enter remote access code. Sent mychart message to pt notifying her we've attempted to reach her and to contact office. Watch for pt to review message, if not viewed send letter. Cristina De Jesus MA * Telephone Encounter - Tessy Reyna LPN - 10/31/2024 10:33 AM EDT Attempted to call know answer. * Telephone Encounter - Kassie Bales APRN.CNP - 10/31/2024 9:11 AM EDT Please call patient and let her know that urine culture came back with an uncommon bacteria growth.Therefore, based on the results the antibiotic given will not treat this bacteria. Please switch antibiotic regimen to bactrim BID x 7 days. Bactrim will treat this bacteria. New rx sent to pharmacy. Thank you, Kassie Bales APRN.CNP The following approved medication requests have been transmitted electronically. Requested Prescriptions Signed Prescriptions Disp Refills sulfamethoxazole-trimethoprim (BACTRIM DS) 800-160 mg per tablet 14 tablet 0 Sig: Take 1 tablet by mouth two times a day for 7 days. Kassie Bales APRN.CNP [facility] Telephone encounter Note * Telephone Encounter - Cristina De Jesus MA - 11/04/2024 3:23 PM EDT Attempted to contact pt, phone call screened, phone rang then got message to enter remote access code. Sent mychart message to pt notifying her we've attempted to reach her and to contact office. Watch for pt to review message, if not viewed send letter. Cristina De Jesus MA [facility]03-24-2025 Telephone encounter Note* Telephone Encounter - Tessy Reyna LPN - 10/31/2024 10:33 AM EDT Attempted to call know answer. [facility] Work Phone: [phone] Telephone encounter Note* Telephone Encounter - Kassie Bales APRN.TALISHA - 10/31/2024 9:11 AM EDT Please call patient and let her know that urine culture came back with an uncommon bacteria growth.Therefore, based on the results the antibiotic given will not treat this bacteria. Please switch antibiotic regimen to bactrim BID x 7 days. Bactrim will treat this bacteria. New rx sent to pharmacy. Thank you, Kassie Bales APRN.TALISHA The following approved medication requests have been transmitted electronically. Requested Prescriptions Signed Prescriptions Disp Refills sulfamethoxazole-trimethoprim (BACTRIM DS) 800-160 mg per tablet 14 tablet 0 Sig: Take 1 tablet by mouth two times a day for 7 days. Kassie Bales APRN.TALISHA [facility]03-20-2025 Telephone encounter Note* Telephone Encounter - Kelley Davis - 10/27/2024 4:43 PM EDT Spoke with patient and scheduled. Kelley Davis [facility]03-20-2025 Miscellaneous Notes* Telephone Encounter - Kelley Davis - 10/27/2024 4:43 PM EDT Spoke with patient and scheduled. Kelley Davis documented in this encounterF[facility]03-[facility]-2025 NoteHNO ID: [id number] Author: KASSIE BALES APRN.ASSOCIATE PROPERTY MANAGER Service: ? Author Type: Nurse Practitioner Type: Progress Notes Filed: 10/27/2024 12:38 Note Text: Chief Complaint No chief complaint on file. HPI Radha Baldwin is a 84 year old female who presents here today for Above Complaints. Ann Marie is an established patient of Dr. Sarai MD. Concerns today.. Was seen in [facility] care on 10/16 d/t hematuria and urinary frequency. Dx with UTI and given keflex regimen x 7 days. Per note: ASSESSMENT/PLAN: 1. Urinary frequency - ICD9: 788.41, ICD10: R35.0 acute - UA positive for eduardo esterase, hematuria, and proteinuria - Send urine for culture - Begin treatment with cephalexin for 7 days - UA DIP, URINE (POC) - BACTERIAL CULTURE, URINE 2. Urinary tract infection with hematuria, site unspecified - ICD9: 599.0, 599.70, ICD10: N39.0, R31.9 - CEPHALEXIN 500 MG CAPSULE Today in office.. Pt reports symptoms never completely resolved. Still having burning with urination, worsening hematuria, and persistent urinary urgency AND frequency. Pt reports symptoms improved slightly while on antibiotic but never completely gone. Symptoms worsened again after finishing antibiotic. Antibiotic was finished on Thursday. Past medical history, appointments, medications, allergies reviewed. Previous Medical History PAST MEDICAL HISTORY Diagnosis Date CVA (cerebral vascular accident) (HCC) 06/02/2017 [facility] acute ischemic right posterior putamen stroke on MRI ASA, Plavix atorvastatin. Follow up with Dr. Witt scheduled. 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 May 2017; treated at [facility] Irritable bowel syndrome Osteoporosis, unspecified Stroke (HCC) Thoracic or lumbosacral neuritis or radiculitis, unspecified Unspecified constipation Constipation Previous Surgical History PAST SURGICAL HISTORY Procedure Laterality Date ABDOMINAL SURGERY HX COLONOSCOPY 06/17/2022 repeat in 10 years COLONOSCOPY W/BIOPSY SINGLE/MULTIPLE 02/08/2013 normal appearing DILATION AND CURETTAGE DXAND/THER NONOBSTETRIC Dilation AND curettage EGD 06/17/2022 EGD TRANSORAL BIOPSY SINGLE/MULTIPLE 02/08/2013 duodenitis, gastritis JOINT REPLACEMENT HX LIG/TRNSXJ FLP TUBE ABDL/VAG APPR UNI/BI Tubal ligation TONSILLECTOMY HX TONSILLECTOMY PRIMARY/SECONDARY Tonsillectomy Family History FAMILY HISTORY Problem Relation Age of Onset Cancer Father stomach Heart Father Patient Allergies ALLERGIES Allergen Reactions Fentanyl Itching Codeine GI Upset Penicillins Unknown Current Medications Current Outpatient Medications on File Prior to Visit Medication Sig mometasone (NASONEX) 50 mcg/actuation nasal spray Use 2 Sprays in each nostril once daily. INSTILL 2 SPRAYS IN EACH NOSTRIL ONCE DAILY montelukast (SINGULAIR) 10 mg tablet Take 1 tablet by mouth every afternoon. DULoxetine (CYMBALTA) 20 mg capsule Take 1 capsule by mouth once daily. gabapentin (NEURONTIN) 100 mg capsule Take 1 capsule by mouth daily at bedtime for 180 days. potassium chloride (K-TAB) 10 mEq tablet Take 1 tablet by mouth two times a day. clopidogrel (PLAVIX) 75 mg tablet Take 1 tablet by mouth once daily. rosuvastatin (CRESTOR) 5 mg tablet Take 1 tablet by mouth daily at bedtime. pantoprazole DR (PROTONIX) 40 mg tablet Take 1 tablet by mouth two times a day. Take on empty stomach, 1/2 hr before meal. naproxen (NAPROSYN) 250 mg tablet 4 TIMES DAILY NEEDED scopolamine (TRANSDERM-SCOP) patch 1.5 mg/72 hr (1 mg over 3 days) Apply 1 Patch as directed every 72 hours. nitroglycerin sublingual (NITROQUICK) 0.4 mg SL tablet Dissolve 0.4mg tab (1tab) under tongue every 5min as needed for chest pain. If no response after max 3 tabs go to ED/notify doctor. meclizine (ANTIVERT) 25 mg tab Take 2 tablets by mouth once daily as needed (dizziness/motion sickness). polypodium leucotomos extract (HELIOCARE ORAL) Take 1 tablet by mouth as needed (Hold during the winter). SENNOSIDES/DOCUSATE SODIUM (SENOKOT-S ORAL) Take 1 Dose by mouth once daily as needed. Cholecalciferol, Vitamin D3, 25 mcg (1,000 unit) cap Take 1,000 Units by mouth two times a day. ascorbic acid(VITAMIN C 500 MG TAB) Take one(1) tablet two(2) times daily. acetaminophen(TYLENOL ARTHRITIS PAIN 650 MG TAB) Take two(2) tablets twice daily. VITAMIN E 400IU SOFTGEL Take one(1) capsule twice daily. fluticasone (FLONASE) 50 mcg/actuation nasal spray Use 1 [place] in each nostril once daily. For allergy season (Patient not taking: Reported on 10/16/2024) No current facility-administered medications on file prior to visit. Social History Social History Tobacco Use Smoking status: Former Current packs/day: 1.00 Average packs/ (more content not included)...[facility] 10-27-2024 History of Present illness Narrative* Kassie Bales, [facility] - 10/27/2024 12:09 PM EDT Chief Complaint No chief complaint on file. HPI Radha Baldwin is a 84 year old female who presents here today for Above Complaints. Ann Marie is an established patient of Dr. Sarai MD. Concerns today.. Was seen in [facility] care on 10/16 d/t hematuria and urinary frequency. Dx with UTI and given keflex regimen x 7 days. Per note: ASSESSMENT/PLAN: 1. Urinary frequency - ICD9: 788.41, ICD10: R35.0 acute - UA positive for eduardo esterase, hematuria, and proteinuria - Send urine for culture - Begin treatment with cephalexin for 7 days - UA DIP, URINE (POC) - BACTERIAL CULTURE, URINE 2. Urinary tract infection with hematuria, site unspecified - ICD9: 599.0, 599.70, ICD10: N39.0, R31.9 - CEPHALEXIN 500 MG CAPSULE Today in office.. Pt reports symptoms never completely resolved. Still having burning with urination, worsening hematuria, and persistent urinary urgency & frequency. Pt reports symptoms improved slightly while onantibiotic but never completely gone. Symptoms worsened again after finishing antibiotic. Antibiotic was finished on Thursday. Past medical history, appointments, medications, allergies reviewed. Previous Medical History PAST MEDICAL HISTORY Diagnosis Date CVA (cerebral vascular accident) ([facility]) 06/02/2017 [facility] acute ischemic right posterior putamen stroke on MRI ASA, Plavix atorvastatin. Follow up with Dr. Witt scheduled. 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 May 2017; treated at [facility] Irritable bowel syndrome Osteoporosis, unspecified Stroke ([facility]) Thoracic or lumbosacral neuritis or radiculitis, unspecified Unspecified constipation Constipation Previous Surgical History PAST SURGICAL HISTORY Procedure Laterality Date ABDOMINAL SURGERY HX COLONOSCOPY 06/17/2022 repeat in 10 years COLONOSCOPY W/BIOPSY SINGLE/MULTIPLE 02/08/2013 normal appearing DILATION & CURETTAGE DX&/THER NONOBSTETRIC Dilation & curettage EGD 06/17/2022 EGD TRANSORAL BIOPSY SINGLE/MULTIPLE 02/08/2013 duodenitis, gastritis JOINT REPLACEMENT HX LIG/TRNSXJ FLP TUBE ABDL/VAG APPR UNI/BI Tubal ligation TONSILLECTOMY HX TONSILLECTOMY PRIMARY/SECONDARY <AGE 12 Tonsillectomy Family History FAMILY HISTORY Problem Relation Age of Onset Cancer Father stomach Heart Father Patient Allergies ALLERGIES Allergen Reactions Fentanyl Itching Codeine GI Upset Penicillins Unknown Current Medications Current Outpatient Medications on File Prior to Visit Medication Sig mometasone (NASONEX) 50 mcg/actuation nasal spray Use 2 Sprays in each nostril once daily. INSTILL 2 SPRAYS IN EACH NOSTRIL ONCE DAILY montelukast (SINGULAIR) 10 mg tablet Take 1 tablet by mouth every afternoon. DULoxetine (CYMBALTA) 20 mg capsule Take 1 capsule by mouth once daily. gabapentin (NEURONTIN) 100 mg capsule Take 1 capsule by mouth daily at bedtime for 180 days. potassium chloride (K-TAB) 10 mEq tablet Take 1 tablet by mouth two times a day. clopidogrel (PLAVIX) 75 mg tablet Take 1 tablet by mouth once daily. rosuvastatin (CRESTOR) 5 mg tablet Take 1 tablet by mouth daily at bedtime. pantoprazole DR (PROTONIX) 40 mg tablet Take 1 tablet by mouth two times a day. Take on empty stomach, 1/2 hr before meal. naproxen (NAPROSYN) 250 mg tablet 4 TIMES DAILY NEEDED scopolamine (TRANSDERM-SCOP) patch 1.5 mg/72 hr (1 mg over 3 days) Apply 1 Patch as directed every 72 hours. nitroglycerin sublingual (NITROQUICK) 0.4 mg SL tablet Dissolve 0.4mg tab (1tab) under tongue [id number] as needed for chest pain. If no response after max 3 tabs go to ED/notify doctor. meclizine (ANTIVERT) 25 mg tab Take 2 tablets by mouth once daily as needed (dizziness/motion sickness). polypodium leucotomos extract (HELIOCARE ORAL) Take 1 tablet by mouth as needed (Hold during the winter). SENNOSIDES/DOCUSATE SODIUM (SENOKOT-S ORAL) Take 1 Dose by mouth once daily as needed. Cholecalciferol, Vitamin D3, 25 mcg (1,000 unit) cap Take 1,000 Units by mouth two times a day. ascorbic acid(VITAMIN C 500 MG TAB) Take one(1) tablet two(2) times daily. acetaminophen(TYLENOL ARTHRITIS PAIN 650 MG TAB) Take two(2) tablets twice daily. VITAMIN E 400IU SOFTGEL Take one(1) capsule twice daily. fluticasone (FLONASE) 50 mcg/actuation nasal spray Use 1 [place] in each nostril once daily. For allergy season (Patient not taking: Reported on 10/16/2024) No current facility-administered medications on file prior to visit. Social History Social History Tobacco Use Smoking status: Former Current packs/day: 1.00 Average packs/day: 1 pack/day for 5.0 years (5.0 ttl pk-yrs) Types: Cigarettes Smokeless tobacco: Never Tobacco comments: Quit smoking in the 1970's Vaping Use Vaping status: Never Used Substance Use Topics Alcohol use: No Drug use: No REVIEW OF SYSTEMS: as above Reviewed relevant PMHx, PSHx, Social Hx, current medications and allergies. Review of Symptoms REVIEW OF SYSTEMS See HPI. EXAM: BP 160/60 Pulse 73 Temp 37.3 C (99.1 F) Resp 12 Wt 58.1 kg (128 lb) SpO2 99% BMI 23.41 kg/m General Appearance: Well appearing, alert, in no acute distress, well-hydrated, well nourished.. Skin: Skin color, texture, turgor normal, no suspicious rashes or lesions. Abdomen: Normal abdominal exam, Abdomen soft, non-tender. Bowel sounds normal. No masses, organomegaly, Negative CVA tenderness. Health Maintenance List Anxiety Screening Never done DTaP,Tdap,Td Vaccine(2 - Td or Tdap) due on 06/20/2023 Advance Directive Discussion due on 08/10/2024 Covid-19 Vaccine( season) due on 10/24/2024 Bone Density Screening due on 08/17/2025 Diabetes Screening due on 07/15/2027 Colorectal Cancer Screening due on 06/17/2032 Influenza Vaccine Completed RSV Vaccine Completed Shingrix Vaccine Completed Pneumococcal Vaccine: 50+ Completed ASSESSMENT/PLAN: 1. Dysuria - ICD9: 788.1, ICD10: R30.0 Acute Switch antibiotic regimen to Macrobid. - UA positive for eduardo esterase, hematuria, and proteinuria - Send urine for culture - Begin treatment with Macrobid 100 mg BID for 7 days - Patient education for prevention given If symptoms - UA DIP, URINE (POC) - BACTERIAL CULTURE, URINE - UA DIP, URINE (POC) - NITROFURANTOIN MONOHYDRATE & MACROCRYSTAL 100 MG ORAL CAP RTO as needed if symptoms do not resolve after completion of antibiotic. Prescription instructions reviewed with patient as applicable. Potential red flag symptoms discussed with the patient. Reviewed appropriate action plan to take if red flag symptoms occur. Patient agreeable to treatment plan. Kassie Bales APRN.ASSOCIATE PROPERTY MANAGER [address] [place] [address] documented in this encounterFulton [facility] Center03-09-2025 Instructions* Patient Instructions* Antonio Jacinto APRN.CNP - 10/16/2024 8:53 AM EDT ASSESSMENT/PLAN: 1. Urinary frequency - ICD9: 788.41, ICD10: R35.0 acute - UA positive for eduardo esterase, hematuria, and proteinuria - Send urine for culture - Begin treatment with cephalexin for 7 days - UA DIP, URINE (POC) - BACTERIAL CULTURE, URINE 2. Urinary tract infection with hematuria, site unspecified - ICD9: 599.0, 599.70, ICD10: N39.0, R31.9 - CEPHALEXIN 500 MG CAPSULE - Follow-up with your PCP in 3-5 days if symptoms have not improved or sooner if symptoms worsen - Discussed red flags and need for immediate medical evaluation if any occur. - Discussed supportive care treatment with fluids, rest and analgesia. - Discussed expected course of illness Antonio Jacinto APRN.ASSOCIATE PROPERTY MANAGER documented in this encounterFulton County Health Center03-09-2025 NoteHNO ID: [id number] Author: ANTONIO JACINTO APRN.TALISHA Service: ? Author Type: Nurse Practitioner Type: Progress Notes Filed: 10/16/2024 08:53 Note Text: [facility] Subjective Radha Baldwin is a 84 year old female. Patient presents with: Urinary Frequency: burning with urination x 4 days HPI Radha Baldwin is a 84 year old female who presents with urgency, frequency, and dysuria x 4 days. States her urine is "muddy looking". She has been taking "cranberry stuff" which has not helped. Denies fever, chills, nausea, vomiting, back pain or abdominal pain. Review of Systems Constitutional: Negative for chills and fever. Respiratory: Negative. Cardiovascular: Negative. Gastrointestinal: Negative for abdominal pain. Genitourinary: Positive for dysuria, frequency and urgency. Negative for difficulty urinating, flank pain and hematuria. Musculoskeletal: Negative for back pain. Skin: Negative for rash. Objective BP 128/72 Pulse 82 Temp 37.1 ?C (98.8 ?F) Resp 16 Wt 58.2 kg (128 lb 4.9 oz) SpO2 97% BMI 23.47 kg/m? PAST MEDICAL HISTORY Diagnosis Date CVA (cerebral vascular accident) (HCC) 06/02/2017 [facility] acute ischemic right posterior putamen stroke on MRI ASA, Plavix atorvastatin. Follow up with Dr. Witt scheduled. 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 May 2017; treated at [facility] Irritable bowel syndrome Osteoporosis, unspecified Stroke (HCC) Thoracic or lumbosacral neuritis or radiculitis, unspecified Unspecified constipation Constipation PAST SURGICAL HISTORY Procedure Laterality Date ABDOMINAL SURGERY HX COLONOSCOPY 06/17/2022 repeat in 10 years COLONOSCOPY W/BIOPSY SINGLE/MULTIPLE 02/08/2013 normal appearing DILATION AND CURETTAGE DXAND/THER NONOBSTETRIC Dilation AND curettage EGD 06/17/2022 EGD TRANSORAL BIOPSY SINGLE/MULTIPLE 02/08/2013 duodenitis, gastritis JOINT REPLACEMENT HX LIG/TRNSXJ FLP TUBE ABDL/VAG APPR UNI/BI Tubal ligation TONSILLECTOMY HX TONSILLECTOMY PRIMARY/SECONDARY Tonsillectomy ALLERGIES Fentanyl, Codeine, and Penicillins MEDICATIONS mometasone (NASONEX) 50 mcg/actuation nasal spray Use 2 Sprays in each nostril once daily. INSTILL 2 SPRAYS IN EACH NOSTRIL ONCE DAILY montelukast (SINGULAIR) 10 mg tablet Take 1 tablet by mouth every afternoon. DULoxetine (CYMBALTA) 20 mg capsule Take 1 capsule by mouth once daily. gabapentin (NEURONTIN) 100 mg capsule Take 1 capsule by mouth daily at bedtime for 180 days. potassium chloride (K-TAB) 10 mEq tablet Take 1 tablet by mouth two times a day. clopidogrel (PLAVIX) 75 mg tablet Take 1 tablet by mouth once daily. rosuvastatin (CRESTOR) 5 mg tablet Take 1 tablet by mouth daily at bedtime. pantoprazole DR (PROTONIX) 40 mg tablet Take 1 tablet by mouth two times a day. Take on empty stomach, 1/2 hr before meal. naproxen (NAPROSYN) 250 mg tablet 4 TIMES DAILY NEEDED scopolamine (TRANSDERM-SCOP) patch 1.5 mg/72 hr (1 mg over 3 days) Apply 1 Patch as directed every 72 hours. nitroglycerin sublingual (NITROQUICK) 0.4 mg SL tablet Dissolve 0.4mg tab (1tab) under tongue every 5min as needed for chest pain. If no response after max 3 tabs go to ED/notify doctor. meclizine (ANTIVERT) 25 mg tab Take 2 tablets by mouth once daily as needed (dizziness/motion sickness). polypodium leucotomos extract (HELIOCARE ORAL) Take 1 tablet by mouth as needed (Hold during the winter). SENNOSIDES/DOCUSATE SODIUM (SENOKOT-S ORAL) Take 1 Dose by mouth once daily as needed. Cholecalciferol, Vitamin D3, 25 mcg (1,000 unit) cap Take 1,000 Units by mouth two times a day. ascorbic acid(VITAMIN C 500 MG TAB) Take one(1) tablet two(2) times daily. acetaminophen(TYLENOL ARTHRITIS PAIN 650 MG TAB) Take two(2) tablets twice daily. VITAMIN E 400IU SOFTGEL Take one(1) capsule twice daily. fluticasone (FLONASE) 50 mcg/actuation nasal spray Use 1 [place] in each nostril once daily. For allergy season (Patient not taking: Reported on 10/16/2024) FAMILY HISTORY Problem Relation Age of Onset Cancer Father stomach Heart Father Social History Tobacco Use Smoking status: Former Current packs/day: 1.00 Average packs/day: 1 pack/day for 5.0 years (5.0 ttl pk-yrs) Types: Cigarettes Smokeless tobacco: Never Tobacco comments: Quit smoking in the s Vaping Use Vaping status: Never Used Substance Use Topics Alcohol use: No Drug use: No Physical Exam Vitals and nursing note reviewed. Constitutional: General: She is not in acute distress. Appearance: Normal appearance. She is not ill-appearing. Cardiovascular: Rate and Rhythm: Normal rate and regular rhythm. Heart sounds: Normal heart sounds. Pulmonary: Effort: Pu (more content not included)...[facility]03-09-2025 History of Present illness Narrative* Antonio Jacinto APRN.ASSOCIATE PROPERTY MANAGER - 10/16/2024 8:47 AM EDT [facility] Subjective Radha Baldwin is a 84 year old female. Patient presents with: Urinary Frequency: burning with urination x 4 days HPI Radha Baldwin is a 84 year old female who presents with urgency, frequency, and dysuria x 4 days. States her urine is "muddy looking". She has been taking "cranberry stuff" which has not helped. Denies fever, chills, nausea, vomiting, back pain or abdominal pain. Review of Systems Constitutional: Negative for chills and fever. Respiratory: Negative. Cardiovascular: Negative. Gastrointestinal: Negative for abdominal pain. Genitourinary: Positive for dysuria, frequency and urgency. Negative for difficulty urinating, flank pain and hematuria. Musculoskeletal: Negative for back pain. Skin: Negative for rash. Objective BP 128/72 Pulse 82 Temp 37.1 C (98.8 F) Resp 16 Wt 58.2 kg (128 lb 4.9 oz) SpO2 97% BMI 23.47 kg/m PAST MEDICAL HISTORY Diagnosis Date CVA (cerebral vascular accident) ([facility]) 06/02/2017 [facility] acute ischemic right posterior putamen stroke on MRI ASA, Plavix atorvastatin. Follow up with Dr. Witt scheduled. 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 May 2017; treated at [facility] Irritable bowel syndrome Osteoporosis, unspecified Stroke ([facility]) Thoracic or lumbosacral neuritis or radiculitis, unspecified Unspecified constipation Constipation PAST SURGICAL HISTORY Procedure Laterality Date ABDOMINAL SURGERY HX COLONOSCOPY 06/17/2022 repeat in 10 years COLONOSCOPY W/BIOPSY SINGLE/MULTIPLE 02/08/2013 normal appearing DILATION & CURETTAGE DX&/THER NONOBSTETRIC Dilation & curettage EGD 06/17/2022 EGD TRANSORAL BIOPSY SINGLE/MULTIPLE 02/08/2013 duodenitis, gastritis JOINT REPLACEMENT HX LIG/TRNSXJ FLP TUBE ABDL/VAG APPR UNI/BI Tubal ligation TONSILLECTOMY HX TONSILLECTOMY PRIMARY/SECONDARY <AGE 12 Tonsillectomy ALLERGIES Fentanyl, Codeine, and Penicillins MEDICATIONS mometasone (NASONEX) 50 mcg/actuation nasal spray Use 2 Sprays in each nostril once daily. INSTILL 2 SPRAYS IN EACH NOSTRIL ONCE DAILY montelukast (SINGULAIR) 10 mg tablet Take 1 tablet by mouth every afternoon. DULoxetine (CYMBALTA) 20 mg capsule Take 1 capsule by mouth once daily. gabapentin (NEURONTIN) 100 mg capsule Take 1 capsule by mouth daily at bedtime for 180 days. potassium chloride (K-TAB) 10 mEq tablet Take 1 tablet by mouth two times a day. clopidogrel (PLAVIX) 75 mg tablet Take 1 tablet by mouth once daily. rosuvastatin (CRESTOR) 5 mg tablet Take 1 tablet by mouth daily at bedtime. pantoprazole DR (PROTONIX) 40 mg tablet Take 1 tablet by mouth two times a day. Take on empty stomach, 1/2 hr before meal. naproxen (NAPROSYN) 250 mg tablet 4 TIMES DAILY NEEDED scopolamine (TRANSDERM-SCOP) patch 1.5 mg/72 hr (1 mg over 3 days) Apply 1 Patch as directed every 72 hours. nitroglycerin sublingual (NITROQUICK) 0.4 mg SL tablet Dissolve 0.4mg tab (1tab) under tongue [id number] as needed for chest pain. If no response after max 3 tabs go to ED/notify doctor. meclizine (ANTIVERT) 25 mg tab Take 2 tablets by mouth once daily as needed (dizziness/motion sickness). polypodium leucotomos extract (HELIOCARE ORAL) Take 1 tablet by mouth as needed (Hold during the winter). SENNOSIDES/DOCUSATE SODIUM (SENOKOT-S ORAL) Take 1 Dose by mouth once daily as needed. Cholecalciferol, Vitamin D3, 25 mcg (1,000 unit) cap Take 1,000 Units by mouth two times a day. ascorbic acid(VITAMIN C 500 MG TAB) Take one(1) tablet two(2) times daily. acetaminophen(TYLENOL ARTHRITIS PAIN 650 MG TAB) Take two(2) tablets twice daily. VITAMIN E 400IU SOFTGEL Take one(1) capsule twice daily. fluticasone (FLONASE) 50 mcg/actuation nasal spray Use 1 [place] in each nostril once daily. For allergy season (Patient not taking: Reported on 10/16/2024) FAMILY HISTORY Problem Relation Age of Onset Cancer Father stomach Heart Father Social History Tobacco Use Smoking status: Former Current packs/day: 1.00 Average packs/day: 1 pack/day for 5.0 years (5.0 ttl pk-yrs) Types: Cigarettes Smokeless tobacco: Never Tobacco comments: Quit smoking in the 1969's Vaping Use Vaping status: Never Used Substance Use Topics Alcohol use: No Drug use: No Physical Exam Vitals and nursing note reviewed. Constitutional: General: She is not in acute distress. Appearance: Normal appearance. She is not ill-appearing. Cardiovascular: Rate and Rhythm: Normal rate and regular rhythm. Heart sounds: Normal heart sounds. Pulmonary: Effort: Pulmonary effort is normal. No respiratory distress. Breath sounds: Normal breath sounds. No wheezing or rales. Abdominal: General: There is no distension. Palpations: Abdomen is soft. There is no mass. Tenderness: There is no abdominal tenderness. There is no right CVA tenderness, left CVA tendernessor guarding. Skin: General: Skin is warm and dry. Neurological: Mental Status: She is alert. ASSESSMENT/PLAN: 1. Urinary frequency - ICD9: 788.41, ICD10: R35.0 acute - UA positive for eduardo esterase, hematuria, and proteinuria - Send urine for culture - Begin treatment with cephalexin for 7 days - UA DIP, URINE (POC) - BACTERIAL CULTURE, URINE 2. Urinary tract infection with hematuria, site unspecified - ICD9: 599.0, 599.70, ICD10: N39.0, R31.9 - CEPHALEXIN 500 MG CAPSULE - Follow-up with your PCP in 3-5 days if symptoms have not improved or sooner if symptoms worsen - Discussed red flags and need for immediate medical evaluation if any occur. - Discussed supportive care treatment with fluids, rest and analgesia. - Discussed expected course of illness Antonio Jacinto APRN.TALISHA History and Record Review External record(s) reviewed: prior labs/imaging. Findings from review of prior labs/imaging: Previous Renal Function Panel Reviewed 02/09/2024: BUN 20; Creatinine 0.62; Estimated Glomerular Filtration Rate 90 04/06/2024: BUN 21; Creatinine 0.51 (L); Estimated Glomerular Filtration Rate 93 07/15/2024: BUN 22 (H); Creatinine 0.64; Estimated Glomerular Filtration Rate 88 Differential Diagnoses - uti is more likely for the following reason(s): suggested by H&P and consistent with laboratory studies - pylonephritis is less likely for the following reason(s): H&P not suggestive Disposition The patient was discharged. [facility] Progress note* Result Encounter Note - Misael Lara APRN.CNS - 10/11/2024 9:15 AM EST Within normal limits [facility]03-04-2025 Miscellaneous Notes* Result Encounter Note - Misael Lara APRN.CNS - 10/11/2024 9:15 AM EST Within normal limits documented in this encounterF[facility] History of Present illness Narrative* Misael Lara APRN.CNS - 09/27/2024 1:40 PM EST SUBJECTIVE: Anxiety Screening Never done DTaP,Tdap,Td Vaccine(2 - Td or Tdap) due on 06/20/2023 Advance Directive Discussion due on 08/10/2024 HPI Radha Baldwin is a 83 year old female. PMH significant for ACTIVE PROBLEM LIST Constipation Osteoporosis Thoracic Or Lumbosacral Neuritis Or Radiculitis, Unspecified Hyperlipidemia Anemia History of Total Right Hip Arthroplasty Gastroesophageal Reflux Disease Without Esophagitis Recurrent Major Depressive Disorder, in Remission (Hcc) Uveitis History of Recent Stroke Nocturia Vitamin D Deficiency Debility History of Repair of Hip Joint Presents today for follow up regarding test results. Notes sudden onset of breast asymmetry, left greater than right. No injury, illness or infection prior. No lymphadenopathy, no mass, no pain, no skin changes. Review of Systems Constitutional: Negative. Objective There were no vitals taken for this visit. Physical Exam Vitals and nursing note reviewed. Constitutional: Appearance: Normal appearance. HENT: Head: Normocephalic. Eyes: Conjunctiva/sclera: Conjunctivae normal. Cardiovascular: Rate and Rhythm: Normal rate. Pulmonary: Effort: Pulmonary effort is normal. Abdominal: General: Bowel sounds are normal. Palpations: Abdomen is soft. Musculoskeletal: Comments: Walking with walker, status post ORIF right hip healing well, abnormal sensation in toes right greater than left Lymphadenopathy: Head: Right side of head: No submental, submandibular, tonsillar, preauricular, posterior auricular or occipital adenopathy. Left side of head: No submental, submandibular, tonsillar, preauricular, posterior auricular or occipital adenopathy. Cervical: Right cervical: No superficial, deep or posterior cervical adenopathy. Left cervical: No superficial, deep or posterior cervical adenopathy. Upper Body: Right upper body: No supraclavicular or axillary adenopathy. Left upper body: No supraclavicular or axillary adenopathy. Skin: General: Skin is warm and dry. Neurological: General: No focal deficit present. Mental Status: She is alert and oriented to person, place, and time. ALLERGIES Allergen Reactions Fentanyl Itching Codeine GI Upset Penicillins Unknown Medication mometasone (NASONEX) 50 mcg/actuation nasal spray Use 2 Sprays in each nostril once daily. INSTILL 2 SPRAYS IN EACH NOSTRIL ONCE DAILY montelukast (SINGULAIR) 10 mg tablet Take 1 tablet by mouth every afternoon. DULoxetine (CYMBALTA) 20 mg capsule Take 1 capsule by mouth once daily. gabapentin (NEURONTIN) 100 mg capsule Take 1 capsule by mouth daily at bedtime for 180 days. potassium chloride (K-TAB) 10 mEq tablet Take 1 tablet by mouth two times a day. clopidogrel (PLAVIX) 75 mg tablet Take 1 tablet by mouth once daily. rosuvastatin (CRESTOR) 5 mg tablet Take 1 tablet by mouth daily at bedtime. pantoprazole DR (PROTONIX) 40 mg tablet Take 1 tablet by mouth two times a day. Take on empty stomach, 1/2 hr before meal. (Patient taking differently: Take 40 mg by mouth once daily. Take on empty stomach, 1/2 hr before meal.) naproxen (NAPROSYN) 250 mg tablet 4 TIMES DAILY NEEDED scopolamine (TRANSDERM-SCOP) patch 1.5 mg/72 hr (1 mg over 3 days) Apply 1 Patch as directed every 72 hours. (Patient taking differently: Apply 1 Patch as directed every 72 hours. PRN) nitroglycerin sublingual (NITROQUICK) 0.4 mg SL tablet Dissolve 0.4mg tab (1tab) under tongue [id number] as needed for chest pain. If no response after max 3 tabs go to ED/notify doctor. fluticasone (FLONASE) 50 mcg/actuation nasal spray Use 1 [place] in each nostril once daily. For allergy season (Patient not taking: Reported on 07/20/2024) meclizine (ANTIVERT) 25 mg tab Take 2 tablets by mouth once daily as needed (dizziness/motion sickness). polypodium leucotomos extract (HELIOCARE ORAL) Take 1 tablet by mouth as needed (Hold during the winter). SENNOSIDES/DOCUSATE SODIUM (SENOKOT-S ORAL) Take 1 Dose by mouth once daily as needed. Cholecalciferol, Vitamin D3, 25 mcg (1,000 unit) cap Take 1,000 Units by mouth two times a day. ascorbic acid(VITAMIN C 500 MG TAB) Take one(1) tablet two(2) times daily. acetaminophen(TYLENOL ARTHRITIS PAIN 650 MG TAB) Take two(2) tablets twice daily. VITAMIN E 400IU SOFTGEL Take one(1) capsule twice daily. PAST MEDICAL HISTORY Diagnosis Date CVA (cerebral vascular accident) (HCC) 06/02/2017 [facility] acute ischemic right posterior putamen stroke on MRI ASA, Plavix atorvastatin. Follow up with Dr. Witt scheduled. 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 May 2017; treated at [facility] Irritable bowel syndrome Osteoporosis, unspecified Stroke ([facility]) Thoracic or lumbosacral neuritis or radiculitis, unspecified Unspecified constipation Constipation Social History Tobacco Use Smoking status: Former Current packs/day: 1.00 Average packs/day: 1 pack/day for 5.0 years (5.0 ttl pk-yrs) Types: Cigarettes Smokeless tobacco: Never Tobacco comments: Quit smoking in the 1970's Vaping Use Vaping status: Never Used Substance Use Topics Alcohol use: No Drug use: No ASSESSMENT/PLAN: 1. Breast asymmetry - ICD9: 611.89, ICD10: N64.89 (primary diagnosis) 2. Other general symptoms and signs - ICD9: 780.99, ICD10: R68.89 She noted sudden asymmetry of left breast compared to right. No mass no lymphadenopathy no injury is noted. She is interested in checking lab work, hormonal levels. Orders placed. Mammogram and ultrasound completed to date negative for signs of malignancy. Recommend short-term follow-up in 6 monthsif her insurance will cover it. Consider MRI breast if needed. She will let us know if any other symptoms develop - PROLACTIN - THYROID STIMULATING HORMONE - LUTEINIZING HORMONE - HYDROXYPROGESTERONE-17 - FOLLICLE STIMULATING HORMONE - PROGESTERONE - DHEA-S BLD - JONA DIAGNOSTIC BILATERAL - US BREAST LTD LEFT Misael Lara APRN.CNS Medical Decision Making: Problems: Low: Acute, uncomplicated illness or injury Data: Unique test(s) ordered: 3+ Risk: Moderate: Drug management Medical Decision Making Level: 4 - Moderate documented in this encounterF[facility]02-18-2025 NoteHNO ID: [id number] Author: MISAEL LARA APRN.4TH GRADE TEACHER Service: ? Author Type: Nurse Specialist Type: Progress Notes Filed: 09/27/2024 14:35 Note Text: SUBJECTIVE: Anxiety Screening Never done DTaP,Tdap,Td Vaccine(2 - Td or Tdap) due on 06/20/2023 Advance Directive Discussion due on 08/10/2024 HPI Radha Baldwin is a 83 year old female. PMH significant for ACTIVE PROBLEM LIST Constipation Osteoporosis Thoracic Or Lumbosacral Neuritis Or Radiculitis, Unspecified Hyperlipidemia Anemia History of Total Right Hip Arthroplasty Gastroesophageal Reflux Disease Without Esophagitis Recurrent Major Depressive Disorder, in Remission (Hcc) Uveitis History of Recent Stroke Nocturia Vitamin D Deficiency Debility History of Repair of Hip Joint Presents today for follow up regarding test results. Notes sudden onset of breast asymmetry, left greater than right. No injury, illness or infection prior. No lymphadenopathy, no mass, no pain, no skin changes. Review of Systems Constitutional: Negative. Objective There were no vitals taken for this visit. Physical Exam Vitals and nursing note reviewed. Constitutional: Appearance: Normal appearance. HENT: Head: Normocephalic. Eyes: Conjunctiva/sclera: Conjunctivae normal. Cardiovascular: Rate and Rhythm: Normal rate. Pulmonary: Effort: Pulmonary effort is normal. Abdominal: General: Bowel sounds are normal. Palpations: Abdomen is soft. Musculoskeletal: Comments: Walking with walker, status post ORIF right hip healing well, abnormal sensation in toes right greater than left Lymphadenopathy: Head: Right side of head: No submental, submandibular, tonsillar, preauricular, posterior auricular or occipital adenopathy. Left side of head: No submental, submandibular, tonsillar, preauricular, posterior auricular or occipital adenopathy. Cervical: Right cervical: No superficial, deep or posterior cervical adenopathy. Left cervical: No superficial, deep or posterior cervical adenopathy. Upper Body: Right upper body: No supraclavicular or axillary adenopathy. Left upper body: No supraclavicular or axillary adenopathy. Skin: General: Skin is warm and dry. Neurological: General: No focal deficit present. Mental Status: She is alert and oriented to person, place, and time. ALLERGIES Allergen Reactions Fentanyl Itching Codeine GI Upset Penicillins Unknown Medication mometasone (NASONEX) 50 mcg/actuation nasal spray Use 2 Sprays in each nostril once daily. INSTILL 2 SPRAYS IN EACH NOSTRIL ONCE DAILY montelukast (SINGULAIR) 10 mg tablet Take 1 tablet by mouth every afternoon. DULoxetine (CYMBALTA) 20 mg capsule Take 1 capsule by mouth once daily. gabapentin (NEURONTIN) 100 mg capsule Take 1 capsule by mouth daily at bedtime for 180 days. potassium chloride (K-TAB) 10 mEq tablet Take 1 tablet by mouth two times a day. clopidogrel (PLAVIX) 75 mg tablet Take 1 tablet by mouth once daily. rosuvastatin (CRESTOR) 5 mg tablet Take 1 tablet by mouth daily at bedtime. pantoprazole DR (PROTONIX) 40 mg tablet Take 1 tablet by mouth two times a day. Take on empty stomach, 1/2 hr before meal. (Patient taking differently: Take 40 mg by mouth once daily. Take on empty stomach, 1/2 hr before meal.) naproxen (NAPROSYN) 250 mg tablet 4 TIMES DAILY NEEDED scopolamine (TRANSDERM-SCOP) patch 1.5 mg/72 hr (1 mg over 3 days) Apply 1 Patch as directed every 72 hours. (Patient taking differently: Apply 1 Patch as directed every 72 hours. PRN) nitroglycerin sublingual (NITROQUICK) 0.4 mg SL tablet Dissolve 0.4mg tab (1tab) under tongue every 5min as needed for chest pain. If no response after max 3 tabs go to ED/notify doctor. fluticasone (FLONASE) 50 mcg/actuation nasal spray Use 1 [place] in each nostril once daily. For allergy season (Patient not taking: Reported on 07/20/2024) meclizine (ANTIVERT) 25 mg tab Take 2 tablets by mouth once daily as needed (dizziness/motion sickness). polypodium leucotomos extract (HELIOCARE ORAL) Take 1 tablet by mouth as needed (Hold during the winter). SENNOSIDES/DOCUSATE SODIUM (SENOKOT-S ORAL) Take 1 Dose by mouth once daily as needed. Cholecalciferol, Vitamin D3, 25 mcg (1,000 unit) cap Take 1,000 Units by mouth two times a day. ascorbic acid(VITAMIN C 500 MG TAB) Take one(1) tablet two(2) times daily. acetaminophen(TYLENOL ARTHRITIS PAIN 650 MG TAB) Take two(2) tablets twice daily. VITAMIN E 400IU SOFTGEL Take one(1) capsule twice daily. PAST MEDICAL HISTORY Diagnosis Date CVA (cerebral vascular accident) (HCC) 06/02/2017 [facility] acute ischemic right posterior putamen stroke on MRI ASA, Plavix atorvastatin. Follow up with Dr. Witt scheduled. Gastroesophageal reflux disease without esophagitis 11/14/2015 Past EGD, Colon (2012) History of recent stroke 07/12/2017 Right thalamic stroke with associated problems with facial droop, speech and am (more content not included)...[facility]02-13-2025 Telephone encounter Note* Telephone Encounter - Rosalina Dupree LPN - 09/22/2024 8:43 AM EST Patient updated via active SharePlowhart. Rosalina Dupree LPN September 22, 2024 8:43 AM [facility]02-13-2025 Telephone encounter Note* Telephone Encounter - Rosalina Dupree LPN - 09/22/2024 8:43 AM EST ----- Message from Kenny Pandey APRN.CNP sent at 09/22/2024 7:25 AM EST ----- No malignancy or concerns to explain her enlarged breast. I recommend following up with her PCP to discuss other possible causes of this. Thank you Kenny Pandey APRN.ASSOCIATE PROPERTY MANAGER [facility]02-13-2025 Miscellaneous Notes* Telephone Encounter - Rosalina Dupree LPN - 09/22/2024 8:43 AM EST Patient updated via active Readyt. Rosalina Dupree LPN September 22, 2024 8:43 AM * Telephone Encounter - Rosalina Dupree LPN - 09/22/2024 8:43 AM EST ----- Message from Kenny Pandey APRN.CNP sent at 09/22/2024 7:25 AM EST ----- No malignancy or concerns to explain her enlarged breast. I recommend following up with her PCP to discuss other possible causes of this. Thank you Kenny Pandey APRN.ASSOCIATE PROPERTY MANAGER documented in this encounterFult[facility]02-11-2025 History of Present illness Narrative* Annie Del Cid, [facility] - 09/20/2024 9:00 AM EST Radiology Service Progress Note PATIENT NAME: Radha Baldwin DATE OF SERVICE: September 20, 2024 TIME: 2:03 PM PATIENT IDENTITY VERIFICATION COMPLETED USING TWO (2) IDENTIFIERS: Name and Date of confirmedby patient verbally. FALL SCREENING: Has the patient had 2 falls in the last year or 1 fall with injury or currently using an Ambulatory Assistive Device (Walker, Cane, Wheelchair, Crutches, etc.)? No PATIENT GENDER DATA: Assigned female at . status: : No status:NO. PATIENT RELEVANT IMPLANT DATA REVIEWED: Not Applicable PATIENT PRESENTS WITH AN IMPLANTABLE OR ATTACHED WOMENS VOLLEYBALL COACH: No RADIOLOGY DEPARTMENT: Ultrasound PERIPHERAL IV DATA: Not applicable SIGNED BY: Annie Del Cid RDMS RVT September 20, 2024 2:03 PM documented in this encounterFulton [facility]02-11-2025 NoteHNO ID: [id number] Author: ANNIE DEL CID RDMS Service: ? Author Type: Photoengraving Printer Type: Progress Notes Filed: 09/20/2024 14:03 Note Text: Radiology Service Progress Note PATIENT NAME: Radha Baldwin DATE OF SERVICE: September 20, 2024 TIME: 2:03 PM PATIENT IDENTITY VERIFICATION COMPLETED USING TWO (2) IDENTIFIERS: Name and Date of confirmed by patient verbally. FALL SCREENING: Has the patient had 2 falls in the last year or 1 fall with injury or currently using an Ambulatory Assistive Device (Walker, Cane, Wheelchair, Crutches, etc.)? No PATIENT GENDER DATA: Assigned female at . status: : No status: NO. PATIENT RELEVANT IMPLANT DATA REVIEWED: Not Applicable PATIENT PRESENTS WITH AN IMPLANTABLE OR ATTACHED WOMENS VOLLEYBALL COACH: No RADIOLOGY DEPARTMENT: Ultrasound PERIPHERAL IV DATA: Not applicable SIGNED BY: Annie Del Cid RDMS RVJewel September 20, 2024 2:03 [facility]02-11-2025 History of Present illness Narrative* Lucretia Bansal Mammo Tech - 09/20/2024 8:30 AM EST Radiology Service Progress Note PATIENT NAME: Radha Baldwin DATE OF SERVICE: September 20, 2024 TIME: 9:19 AM PATIENT IDENTITY VERIFICATION COMPLETED USING TWO (2) IDENTIFIERS: Name and Date of confirmedby patient verbally. FALL SCREENING: Has the patient had 2 falls in the last year or 1 fall with injury or currently using an Ambulatory Assistive Device (Walker, Cane, Wheelchair, Crutches, etc.)? No PATIENT GENDER DATA: Assigned female at . status: : No status:NO. PATIENT RELEVANT IMPLANT DATA REVIEWED: Not Applicable PATIENT PRESENTS WITH AN IMPLANTABLE OR ATTACHED WOMENS VOLLEYBALL COACH: No RADIOLOGY DEPARTMENT: Mammography PERIPHERAL IV DATA: Not applicable SIGNED BY: Ara Sevilla September 20, 2024 9:19 AM documented in this encounterFulton [facility]02-11-2025 NoteHNO ID: [id number] Author: LUCRETIA BANSAL Mammo Tech Service: ? Author Type: Stamping Die Maker Bench Type: Progress Notes Filed: 09/20/2024 09:20 Note Text: Radiology Service Progress Note PATIENT NAME: Radha Baldwin DATE OF SERVICE: September 20, 2024 TIME: 9:19 AM PATIENT IDENTITY VERIFICATION COMPLETED USING TWO (2) IDENTIFIERS: Name and Date of confirmed by patient verbally. FALL SCREENING: Has the patient had 2 falls in the last year or 1 fall with injury or currently using an Ambulatory Assistive Device (Walker, Cane, Wheelchair, Crutches, etc.)? No PATIENT GENDER DATA: Assigned female at . status: : No status: NO. PATIENT RELEVANT IMPLANT DATA REVIEWED: Not Applicable PATIENT PRESENTS WITH AN IMPLANTABLE OR ATTACHED WOMENS VOLLEYBALL COACH: No RADIOLOGY DEPARTMENT: Mammography PERIPHERAL IV DATA: Not applicable SIGNED BY: Ara Sevilla September 20, 2024 9:19 [facility]01-31-2025 NoteHNO ID: [id number] Author: KENNY PANDEY APRN.ASSOCIATE PROPERTY MANAGER Service: ? Author Type: Nurse Practitioner Type: Progress Notes Filed: 09/09/2024 13:47 Note Text: CC: Patient presents with: Cough Breast Problem: L breast enlargment HPI Radha Baldwin is a 84 year old female who presents today for left breast changes. Has noticed in the last few weeks dramatic size changes to her left breast and is now much larger then the right. Denies any injuries, recent illnesses, skin changes, changes in weight, fatigue, fever, chills, cough, wheezing, chest pain, edema, pain, tenderness, nipple changes, nipple drainage, discoloration, or other concerns. Last mammogram was in 2018 and was normal and no history of abnormal mammograms, biopsies, or lymphatic issues. History of paternal aunt with breast cancer no other family history of breast cancer. REVIEW OF SYSTEMS See HPI PAST MEDICAL HISTORY Diagnosis Date CVA (cerebral vascular accident) (HCC) 06/02/2017 [facility] acute ischemic right posterior putamen stroke on MRI ASA, Plavix atorvastatin. Follow up with Dr. Witt scheduled. 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 May 2017; treated at [facility] Irritable bowel syndrome Osteoporosis, unspecified Stroke ([facility]) Thoracic or lumbosacral neuritis or radiculitis, unspecified Unspecified constipation Constipation PAST SURGICAL HISTORY Procedure Laterality Date ABDOMINAL SURGERY HX COLONOSCOPY 06/17/2022 repeat in 10 years COLONOSCOPY W/BIOPSY SINGLE/MULTIPLE 02/08/2013 normal appearing DILATION AND CURETTAGE DXAND/THER NONOBSTETRIC Dilation AND curettage EGD 06/17/2022 EGD TRANSORAL BIOPSY SINGLE/MULTIPLE 02/08/2013 duodenitis, gastritis JOINT REPLACEMENT HX LIG/TRNSXJ FLP TUBE ABDL/VAG APPR UNI/BI Tubal ligation TONSILLECTOMY HX TONSILLECTOMY PRIMARY/SECONDARY Tonsillectomy ALLERGIES Fentanyl, Codeine, and Penicillins MEDICATIONS mometasone (NASONEX) 50 mcg/actuation nasal spray Use 2 Sprays in each nostril once daily. INSTILL 2 SPRAYS IN EACH NOSTRIL ONCE DAILY montelukast (SINGULAIR) 10 mg tablet Take 1 tablet by mouth every afternoon. DULoxetine (CYMBALTA) 20 mg capsule Take 1 capsule by mouth once daily. gabapentin (NEURONTIN) 100 mg capsule Take 1 capsule by mouth daily at bedtime for 180 days. potassium chloride (K-TAB) 10 mEq tablet Take 1 tablet by mouth two times a day. clopidogrel (PLAVIX) 75 mg tablet Take 1 tablet by mouth once daily. rosuvastatin (CRESTOR) 5 mg tablet Take 1 tablet by mouth daily at bedtime. pantoprazole DR (PROTONIX) 40 mg tablet Take 1 tablet by mouth two times a day. Take on empty stomach, 1/2 hr before meal. (Patient taking differently: Take 40 mg by mouth once daily. Take on empty stomach, 1/2 hr before meal.) naproxen (NAPROSYN) 250 mg tablet 4 TIMES DAILY NEEDED scopolamine (TRANSDERM-SCOP) patch 1.5 mg/72 hr (1 mg over 3 days) Apply 1 Patch as directed every 72 hours. (Patient taking differently: Apply 1 Patch as directed every 72 hours. PRN) nitroglycerin sublingual (NITROQUICK) 0.4 mg SL tablet Dissolve 0.4mg tab (1tab) under tongue every 5min as needed for chest pain. If no response after max 3 tabs go to ED/notify doctor. fluticasone (FLONASE) 50 mcg/actuation nasal spray Use 1 [place] in each nostril once daily. For allergy season (Patient not taking: Reported on 07/20/2024) meclizine (ANTIVERT) 25 mg tab Take 2 tablets by mouth once daily as needed (dizziness/motion sickness). polypodium leucotomos extract (HELIOCARE ORAL) Take 1 tablet by mouth as needed (Hold during the winter). SENNOSIDES/DOCUSATE SODIUM (SENOKOT-S ORAL) Take 1 Dose by mouth once daily as needed. Cholecalciferol, Vitamin D3, 25 mcg (1,000 unit) cap Take 1,000 Units by mouth two times a day. ascorbic acid(VITAMIN C 500 MG TAB) Take one(1) tablet two(2) times daily. acetaminophen(TYLENOL ARTHRITIS PAIN 650 MG TAB) Take two(2) tablets twice daily. VITAMIN E 400IU SOFTGEL Take one(1) capsule twice daily. FAMILY HISTORY Problem Relation Age of Onset Cancer Father stomach Heart Father Social History Tobacco Use Smoking status: Former Current packs/day: 1.00 Average packs/day: 1 pack/day for 5.0 years (5.0 ttl pk-yrs) Types: Cigarettes Smokeless tobacco: Never Tobacco comments: Quit smoking in the 1970's Vaping Use Vaping status: Never Used Substance Use Topics Alcohol use: No Drug use: No PHYSICAL EXAM BP 148/80 Pulse 84 Resp 16 Wt 58.1 kg (128 lb) SpO2 98% BMI 23.41 kg/m? General Appearance: well appearing, in no acute distress, alert Eyes: conjunctiva pink and moist, no icterus, sclera white, non-injected Neck: Thyroid normal size and symmetric without palpable nodules, Neck (more content not included)...[facility]01-31-2025 History of Present illness Narrative* Kenny Pandey APRN.ASSOCIATE PROPERTY MANAGER - 09/09/2024 1:28 PM EST CC: Patient presents with: Cough Breast Problem: L breast enlargment HPI Radha Baldwin is a 84 year old female who presents today for left breast changes. Has noticed in the last few weeks dramatic size changes to her left breast and is now much larger then the right. Denies any injuries, recent illnesses, skin changes, changes in weight, fatigue, fever, chills, cough, wheezing, chest pain, edema, pain, tenderness, nipple changes, nipple drainage, discoloration, or other concerns. Last mammogram was in 2018 and was normal and no history of abnormal mammograms, biopsies, or lymphatic issues. History of paternal aunt with breast cancer no other family history of breast cancer. REVIEW OF SYSTEMS See HPI PAST MEDICAL HISTORY Diagnosis Date CVA (cerebral vascular accident) (HCC) 06/02/2017 [facility] acute ischemic right posterior putamen stroke on MRI ASA, Plavix atorvastatin. Follow up with Dr. Witt scheduled. 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 May 2017; treated at [facility] Irritable bowel syndrome Osteoporosis, unspecified Stroke ([facility]) Thoracic or lumbosacral neuritis or radiculitis, unspecified Unspecified constipation Constipation PAST SURGICAL HISTORY Procedure Laterality Date ABDOMINAL SURGERY HX COLONOSCOPY 06/17/2022 repeat in 10 years COLONOSCOPY W/BIOPSY SINGLE/MULTIPLE 02/08/2013 normal appearing DILATION & CURETTAGE DX&/THER NONOBSTETRIC Dilation & curettage EGD 06/17/2022 EGD TRANSORAL BIOPSY SINGLE/MULTIPLE 02/08/2013 duodenitis, gastritis JOINT REPLACEMENT HX LIG/TRNSXJ FLP TUBE ABDL/VAG APPR UNI/BI Tubal ligation TONSILLECTOMY HX TONSILLECTOMY PRIMARY/SECONDARY <AGE 12 Tonsillectomy ALLERGIES Fentanyl, Codeine, and Penicillins MEDICATIONS mometasone (NASONEX) 50 mcg/actuation nasal spray Use 2 Sprays in each nostril once daily. INSTILL 2 SPRAYS IN EACH NOSTRIL ONCE DAILY montelukast (SINGULAIR) 10 mg tablet Take 1 tablet by mouth every afternoon. DULoxetine (CYMBALTA) 20 mg capsule Take 1 capsule by mouth once daily. gabapentin (NEURONTIN) 100 mg capsule Take 1 capsule by mouth daily at bedtime for 180 days. potassium chloride (K-TAB) 10 mEq tablet Take 1 tablet by mouth two times a day. clopidogrel (PLAVIX) 75 mg tablet Take 1 tablet by mouth once daily. rosuvastatin (CRESTOR) 5 mg tablet Take 1 tablet by mouth daily at bedtime. pantoprazole DR (PROTONIX) 40 mg tablet Take 1 tablet by mouth two times a day. Take on empty stomach, 1/2 hr before meal. (Patient taking differently: Take 40 mg by mouth once daily. Take on empty stomach, 1/2 hr before meal.) naproxen (NAPROSYN) 250 mg tablet 4 TIMES DAILY NEEDED scopolamine (TRANSDERM-SCOP) patch 1.5 mg/72 hr (1 mg over 3 days) Apply 1 Patch as directed every 72 hours. (Patient taking differently: Apply 1 Patch as directed every 72 hours. PRN) nitroglycerin sublingual (NITROQUICK) 0.4 mg SL tablet Dissolve 0.4mg tab (1tab) under tongue [id number] as needed for chest pain. If no response after max 3 tabs go to ED/notify doctor. fluticasone (FLONASE) 50 mcg/actuation nasal spray Use 1 [place] in each nostril once daily. For allergy season (Patient not taking: Reported on 07/20/2024) meclizine (ANTIVERT) 25 mg tab Take 2 tablets by mouth once daily as needed (dizziness/motion sickness). polypodium leucotomos extract (HELIOCARE ORAL) Take 1 tablet by mouth as needed (Hold during the winter). SENNOSIDES/DOCUSATE SODIUM (SENOKOT-S ORAL) Take 1 Dose by mouth once daily as needed. Cholecalciferol, Vitamin D3, 25 mcg (1,000 unit) cap Take 1,000 Units by mouth two times a day. ascorbic acid(VITAMIN C 500 MG TAB) Take one(1) tablet two(2) times daily. acetaminophen(TYLENOL ARTHRITIS PAIN 650 MG TAB) Take two(2) tablets twice daily. VITAMIN E 400IU SOFTGEL Take one(1) capsule twice daily. FAMILY HISTORY Problem Relation Age of Onset Cancer Father stomach Heart Father Social History Tobacco Use Smoking status: Former Current packs/day: 1.00 Average packs/day: 1 pack/day for 5.0 years (5.0 ttl pk-yrs) Types: Cigarettes Smokeless tobacco: Never Tobacco comments: Quit smoking in the 1970's Vaping Use Vaping status: Never Used Substance Use Topics Alcohol use: No Drug use: No PHYSICAL EXAM BP 148/80 Pulse 84 Resp 16 Wt 58.1 kg (128 lb) SpO2 98% BMI 23.41 kg/m General Appearance: well appearing, in no acute distress, alert Eyes: conjunctiva pink and moist, no icterus, sclera white, non-injected Neck: Thyroid normal size and symmetric without palpable nodules, Neck supple, No adenopathy Lymph nodes: No cervical lymphadenopathy, No supraclavicular lymphadenopathy, and No axillary lymphadenopathy. Lungs: Lungs clear to auscultation. No wheezing, rhonchi, rales. Heart: RRR without murmur, gallop, or rubs. No ectopy BUE Extremities: No deformities, edema, skin discoloration, clubbing or cyanosis. Good capillary refill. Breast: no skin or nipple changes, no axillary adenopathy, left breast obviously larger then right.Left breast inner lower region feeling much more dense and difficult to fully assess which patient reports she noticed as well and that is new. Health maintenance reviewed with patient: Anxiety Screening Never done DTaP,Tdap,Td Vaccine(2 - Td or Tdap) due on 06/20/2023 Advance Directive Discussion due on 08/10/2024 Bone Density Screening due on 08/17/2025 Diabetes Screening due on 07/15/2027 Colorectal Cancer Screening due on 06/17/2032 Influenza Vaccine Completed RSV Vaccine Completed Shingrix Vaccine Completed Covid-19 Vaccine Completed Pneumococcal Vaccine: 50+ Completed DATA REVIEWED: No new labs ASSESSMENT/PLAN: 1. Concern about appearance of breast - ICD9: 780.99, ICD10: R46.89 (primary diagnosis) With the sudden increase in size in breast and the new dense area to inner lower portion that is hard to identify if it is a mass or just new dense tissue it needs further evaluated with mammogram and US - [facility]IL[facility] - US BREAST LTD LEFT 2. Mass of lower inner quadrant of left breast - ICD9: 611.72, ICD10: N63.24 As above - [facility]IL[facility] - US BREAST LTD LEFT Prescription instructions reviewed with patient as applicable. Potential red flag symptoms discussed with the patient. Reviewed appropriate action plan to take if red flag symptoms occur. Patient agreeable to treatment plan. Kenny Pandey APRN.CNP documented in [facility]25 NoteOPG [address] [facility] [address] [facility] [id number] Chief Complaint Patient presents with Right Leg - Follow-up Radha Baldwin returns to the office today for her one year follow up on her right femur fracture requiring surgical fixation. She is doing very well. She isn't having any pain. She has been able to return to activities as tolerated without any restrictions. The patient's past medical history, surgical history, social history, family history, medications and allergies were reviewed with the patient today and are available in the chart for further review. Allergies Allergen Reactions Codeine GI Intolerance Fentanyl Itching Penicillins Unknown Current Outpatient Medications: ascorbic acid, vitamin C, (ascorbic acid with marcell hips) 500 MG tablet, Take 1 (one) tablet (500 mg total) by mouth 2 (two) times a day ., Disp: , Rfl: aspirin 81 MG EC tablet, Take 1 (one) tablet (81 mg total) by mouth daily ., Disp: , Rfl: BIOTIN ORAL, Take 1 capsule by mouth daily ., Disp: , Rfl: cholecalciferol, vitamin D3, 25 mcg (1,000 unit) capsule, Take 1 (one) capsule (1,000 Units total) by mouth 2 (two) times a day ., Disp: , Rfl: clopidogreL (PLAVIX) 75 mg tablet, Take 1 (one) tablet (75 mg total) by mouth daily ., Disp: , Rfl: DULoxetine (CYMBALTA) 20 MG capsule, Take 1 (one) capsule (20 mg total) by mouth daily ., Disp: , Rfl: fluticasone propionate (FLONASE) 50 mcg/actuation nasal spray, Instill 1 (one) spray into each nostril daily as needed for allergies ., Disp: , Rfl: naproxen (NAPROSYN) 250 MG tablet, 4 TIMES DAILY NEEDED, Disp: , Rfl: nitroGLYCERIN (NITROSTAT) 0.4 MG SL tablet, Place 1 (one) tablet (0.4 mg total) under the tongue every 5 (five) minutes as needed for chest pain ., Disp: , Rfl: pantoprazole (PROTONIX) 40 MG tablet, Take 1 (one) tablet (40 mg total) by mouth 2 (two) times a day ., Disp: , Rfl: rosuvastatin (CRESTOR) 5 MG tablet, Take 1 (one) tablet (5 mg total) by mouth every night at bedtime ., Disp: , Rfl: scopolamine (TRANSDERM-SCOP) 1 mg over 3 days patch, Place 1.5 patches on the skin every 72 hours As needed for travel ., Disp: , Rfl: senna-docusate (SENNA-S) 8.6-50 mg, Take 1 (one) tablet by mouth daily ., Disp: , Rfl: sucralfate (CARAFATE) 1 gram tablet, Take 1 (one) tablet (1 g total) by mouth 4 (four) times a day ., Disp: , Rfl: vitamin E 400 UNIT capsule, Take 1 (one) capsule (400 Units total) by mouth 2 (two) times a day ., Disp: , Rfl: gabapentin (NEURONTIN) 100 MG capsule, Take 1 (one) capsule (100 mg total) by mouth every night at bedtime ., Disp: , Rfl: potassium chloride SA (K-DUR,KLOR-CON) 20 MEQ tablet, Take 1 (one) tablet (20 mEq total) by mouth daily ., Disp: 30 tablet, Rfl: 0 Past Medical History: Diagnosis Date CVA (cerebral vascular accident) (HCC) Depression Hyperlipidemia Past Surgical History: Procedure Laterality Date ORIF FEMUR Right 08/22/2023 Procedure: OPEN REDUCTION INTERNAL FIXATION FEMUR RIGHT; Surgeon: Crissy Luu MD; Location: [facility] [place]; Service: Orthopedic right hip replacement Social History Socioeconomic History Marital status: Tobacco Use Smoking status: Never Smokeless tobacco: Never Substance and Sexual Activity Alcohol use: Never Drug use: Never Sexual activity: Not Currently Social Drivers of Health Financial Resource Strain: Low Risk (10/18/2019) [facility] Overall Financial Resource Strain (CARDIA) Difficulty of Paying Living Expenses: Not hard at all Food Insecurity: No Food Insecurity (08/21/2023) Hunger Vital Sign Worried About Running Out of Food in the Last Year: Never true Ran Out of Food in the Last Year: Never true Transportation Needs: No Transportation Needs (08/21/2023) PRAPARE - Transportation Lack of Transportation (Medical): No Lack of Transportation (Non-Medical): No Physical Activity: Unknown (01/14/2022) Received from [facility] Exercise Vital Sign Days of Exercise per Week: Patient declined Minutes of Exercise per Session: Patient declined Stress: Unknown (01/14/2022) Received from [facility] [employer] - Occupational Stress Questionnaire Feeling of Stress : Patient declined Social Connections: Unknown (01/14/2022) Received from [facility] Social Connection and Isolation Panel [NHANES] Frequency of Communication with Friends and Family: Patient declined Frequency of Social Gatherings with Friends and Family: Patient declined Attends Lutheran Services: Patient declined Active Member of Clubs or Organizations: Patient declined Attends Club or Organization Meetings: Patient declined Marital Status: Housing Stability: Low Risk (08/21/2023) Housing Stability Vital Sign Unable to Pay for Housing in (more content not included)...[facility] [id number] History of Present illness Narrative* Karma Butts, TALISHA - 08/17/2024 7:43 PM EST [facility] [address] [facility] [address] [facility] [id number] Chief Complaint Patient presents with Right Leg - Follow-up Radha Baldwin returns to the office today for her one year follow up on her right femur fracture requiring surgical fixation. She is doing very well. She isn't having any pain. She has been ableto return to activities as tolerated without any restrictions. The patient's past medical history, surgical history, social history, family history, medications and allergies were reviewed with the patient today and are available in the chart for further review. Allergies Allergen Reactions Codeine GI Intolerance Fentanyl Itching Penicillins Unknown Current Outpatient Medications: ascorbic acid, vitamin C, (ascorbic acid with marcell hips) 500 MG tablet, Take 1 (one) tablet (500 mgtotal) by mouth 2 (two) times a day ., Disp: , Rfl: aspirin 81 MG EC tablet, Take 1 (one) tablet (81 mg total) by mouth daily ., Disp: , Rfl: BIOTIN ORAL, Take 1 capsule by mouth daily ., Disp: , Rfl: cholecalciferol, vitamin D3, 25 mcg (1,000 unit) capsule, Take 1 (one) capsule (1,000 Units total) by mouth 2 (two) times a day ., Disp: , Rfl: clopidogreL (PLAVIX) 75 mg tablet, Take 1 (one) tablet (75 mg total) by mouth daily ., Disp: , Rfl: DULoxetine (CYMBALTA) 20 MG capsule, Take 1 (one) capsule (20 mg total) by mouth daily ., Disp: , Rfl: fluticasone propionate (FLONASE) 50 mcg/actuation nasal spray, Instill 1 (one) spray into each nostril daily as needed for allergies ., Disp: , Rfl: naproxen (NAPROSYN) 250 MG tablet, 4 TIMES DAILY NEEDED, Disp: , Rfl: nitroGLYCERIN (NITROSTAT) 0.4 MG SL tablet, Place 1 (one) tablet (0.4 mg total) under the tongue every 5 (five) minutes as needed for chest pain ., Disp: , Rfl: pantoprazole (PROTONIX) 40 MG tablet, Take 1 (one) tablet (40 mg total) by mouth 2 (two) times a day ., Disp: , Rfl: rosuvastatin (CRESTOR) 5 MG tablet, Take 1 (one) tablet (5 mg total) by mouth every night at bedtime ., Disp: , Rfl: scopolamine (TRANSDERM-SCOP) 1 mg over 3 days patch, Place 1.5 patches on the skin every 72 hours As needed for travel ., Disp: , Rfl: senna-docusate (SENNA-S) 8.6-50 mg, Take 1 (one) tablet by mouth daily ., Disp: , Rfl: sucralfate (CARAFATE) 1 gram tablet, Take 1 (one) tablet (1 g total) by mouth 4 (four) times a day ., Disp: , Rfl: vitamin E 400 UNIT capsule, Take 1 (one) capsule (400 Units total) by mouth 2 (two) times a day ., Disp: , Rfl: gabapentin (NEURONTIN) 100 MG capsule, Take 1 (one) capsule (100 mg total) by mouth every night at bedtime ., Disp: , Rfl: potassium chloride SA (K-DUR,KLOR-CON) 20 MEQ tablet, Take 1 (one) tablet (20 mEq total) by mouth daily ., Disp: 30 tablet, Rfl: 0 Past Medical History: Diagnosis Date CVA (cerebral vascular accident) (HCC) Depression Hyperlipidemia Past Surgical History: Procedure Laterality Date ORIF FEMUR Right 08/22/2023 Procedure: OPEN REDUCTION INTERNAL FIXATION FEMUR RIGHT; Surgeon: Crissy Luu MD; Location: [facility]; Service: Orthopedic right hip replacement Social History Socioeconomic History Marital status: Tobacco Use Smoking status: Never Smokeless tobacco: Never Substance and Sexual Activity Alcohol use: Never Drug use: Never Sexual activity: Not Currently Social Drivers of Health Financial Resource Strain: Low Risk (10/18/2019) Received from [facility] Overall Financial Resource Strain (CARDIA) Difficulty of Paying Living Expenses: Not hard at all Food Insecurity: No Food Insecurity (08/21/2023) Hunger Vital Sign Worried About Running Out of Food in the Last Year: Never true Ran Out of Food in the Last Year: Never true Transportation Needs: No Transportation Needs (08/21/2023) PRAPARE - Transportation Lack of Transportation (Medical): No Lack of Transportation (Non-Medical): No Physical Activity: Unknown (01/14/2022) Received from [facility] Exercise Vital Sign Days of Exercise per Week: Patient declined Minutes of Exercise per Session: Patient declined Stress: Unknown (01/14/2022) Received from [facility] [employer] - Occupational Stress Questionnaire Feeling of Stress : Patient declined Social Connections: Unknown (01/14/2022) Received from [facility] Social Connection and Isolation Panel [NHANES] Frequency of Communication with Friends and Family: Patient declined Frequency of Social Gatherings with Friends and Family: Patient declined Attends Lutheran Services: Patient declined Active Member of Clubs or Organizations: Patient declined Attends Club or Organization Meetings: Patient declined Marital Status: Housing Stability: Low Risk (08/21/2023) Housing Stability Vital Sign Unable to Pay for Housing in the Last Year: No Number of Places Lived in the Last Year: 1 Unstable Housing in the Last Year: No ROS: Review of Systems Musculoskeletal: Negative for arthralgias, gait problem, joint swelling and myalgias. ORTHO: Right Hip Exam Tenderness The patient is experiencing no tenderness. Range of Motion The patient has normal right hip ROM. Muscle Strength The patient has normal right hip strength. Tests CECILY: negative Pearl: negative Other Erythema: absent Scars: present Sensation: normal Pulse: present Imaging: R Femur: Mature callus formation about the periprosthetic right femoral fracture status post ORIF. No acute fracture or dislocation. Right total hip arthroplasty intact without evidence of hardware loosening or complications. Assessment/Plan: After examination and reviewing of the patient x-ray images, she is to continue with activities as tolerated. She is doing very well and I am happy to see her back as needed. documented in this [id number] Instructions* Patient Instructions* Jonny Torres MD - 07/20/2024 12:24 PM EST Recalled meds: Duloxetine Delayed-Release Capsules [facility], 20 mg, 60 count bottles Lot numbers [id number], with an expiration date of 2023 Lot numbers [id number], with an expiration date of 2024 - Continue taking Mometasone nasal spray, 2 squirts in each nostril in the morning. - Continue taking Singulair (Montelukast) at bedtime. - Refill for Cymbalta (Duloxetine) has been sent to the pharmacy; check your medication bottles forspecific lot numbers and expiration dates to ensure they are not part of the recent recall. - Refill for Gabapentin has been sent to the pharmacy; continue taking as prescribed. - Discontinue Carafate as you are not using it. - Increase potassium intake to 2 pills a day; prescription has been updated. - Maintain calcium and vitamin D intake as currently prescribed. - Engage in weight-bearing exercises to strengthen bones; consider using light weights or carrying items like a jug of milk. - Monitor and manage reflux by avoiding trigger foods like tomato paste. - Next follow-up appointment is scheduled for February, with an additional appointment to be scheduled in July. - Bone density test to be ordered for August 2025. documented in this [facility]12-11-[facility]24 NoteHNO ID: [id number] Author: JONNY TORRES MD Service: ? Author Type: Physician Type: Progress Notes Filed: 07/20/2024 12:44 Note Text: This note was created using [employer]. Subjective Radha Baldwin is a 84 year old female. Patient presents with: F/U 6 months: Labs prior SUBJECTIVE: Radha Baldwin is a 84 year old year old lady here today for 6 month follow up appointment for review of medical conditions. Radha Baldwin is an 84-year-old female with a history of osteoporosis, femur fracture, and GERD, presenting for a 6-month follow-up. Radha reports a history of osteoporosis and has been receiving Reclast infusions annually since 2014, with the most recent infusion in July of last year. She sustained a femur fracture due to a torque injury, not a fall, and believes the fracture was related to her osteoporosis rather than the medication. She expresses concern about the long-term use of Reclast and mentions reading that it can cause atypical femur fractures. She also reports difficulty with balance and gait, stating, "I walk like a drunk," which she attributes to a leg length discrepancy following hip surgery and the presence of hardware. She denies recent falls. Radha is currently taking calcium and vitamin D supplements. Recent lab results show a calcium level of 10 mg/dL and a vitamin D level of 58.8 ng/mL. She also reports low potassium levels despite taking 10 mEq of potassium daily. She is also taking duloxetine 20 mg daily and has read about a recent recall of certain lot numbers due to potential contamination. She is also on gabapentin for neuropathy, which has improved but now affects her ankles and feet. She is also taking pantoprazole once daily for GERD and reports increased reflux symptoms, particularly with certain foods like tomato paste. She denies using Carafate and prefers [id number] antacids as needed. Additionally, she is taking mometasone nasal spray and montelukast for post-nasal drip and drainage. She denies any issues with these medications. PAST MEDICAL HISTORY Diagnosis Date CVA (cerebral vascular accident) (HCC) 06/02/2017 [facility] acute ischemic right posterior putamen stroke on MRI ASA, Plavix atorvastatin. Follow up with Dr. Witt scheduled. 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 May 2017; treated at [facility] Irritable bowel syndrome Osteoporosis, unspecified Stroke ([facility]) Thoracic or lumbosacral neuritis or radiculitis, unspecified Unspecified constipation Constipation Current Outpatient Medications Medication Sig clopidogrel (PLAVIX) 75 mg tablet Take 1 tablet by mouth once daily. potassium chloride (K-TAB) 10 mEq tablet Take 1 tablet by mouth daily with breakfast. rosuvastatin (CRESTOR) 5 mg tablet Take 1 tablet by mouth daily at bedtime. pantoprazole DR (PROTONIX) 40 mg tablet Take 1 tablet by mouth two times a day. Take on empty stomach, 1/2 hr before meal. (Patient taking differently: Take 40 mg by mouth once daily. Take on empty stomach, 1/2 hr before meal.) naproxen (NAPROSYN) 250 mg tablet 4 TIMES DAILY NEEDED gabapentin (NEURONTIN) 100 mg capsule Take 1 capsule by mouth daily at bedtime for 180 days. DULoxetine (CYMBALTA) 20 mg capsule Take 1 capsule by mouth once daily. sucralfate (CARAFATE) 1 gram tablet Take 1 tablet by mouth four times daily. Dissolve in 1 TBSP of water, before meals and at bedtime as directed (Patient taking differently: Take 1 g by mouth as needed. Dissolve in 1 TBSP of water, before meals and at bedtime as directed) scopolamine (TRANSDERM-SCOP) patch 1.5 mg/72 hr (1 mg over 3 days) Apply 1 Patch as directed every 72 hours. (Patient taking differently: Apply 1 Patch as directed every 72 hours. PRN) nitroglycerin sublingual (NITROQUICK) 0.4 mg SL tablet Dissolve 0.4mg tab (1tab) under tongue every 5min as needed for chest pain. If no response after max 3 tabs go to ED/notify doctor. meclizine (ANTIVERT) 25 mg tab Take 2 tablets by mouth once daily as needed (dizziness/motion sickness). polypodium leucotomos extract (HELIOCARE ORAL) Take 1 tablet by mouth as needed (Hold during the winter). SENNOSIDES/DOCUSATE SODIUM (SENOKOT-S ORAL) Take 1 Dose by mouth once daily as needed. Cholecalciferol, Vitamin D3, 25 mcg (1,000 unit) cap Take 1,000 Units by mouth two times a day. ascorbic acid(VITAMIN C 500 MG TAB) Take one(1) tablet two(2) times daily. acetaminophen(TYLENOL ARTHRITIS PAIN 650 MG TAB) Take two(2) tablets twice daily. VITAMIN E 400IU SOFTGEL Take one(1) capsule twice daily. fluticasone (FLONASE) 50 mcg/actuation nasal spray Use 1 [place] in each nostril once daily. For allergy season (Patient not taking: Reported on 07/20/2024) N (more content not included)...[facility]12-11-2024 History of Present illness Narrative* Jonny Torres MD - 07/20/2024 12:11 PM EST This note was created using Soteirariter. Subjective Radha Baldwin is a 84 year old female. Patient presents with: F/U 6 months: Labs prior SUBJECTIVE: Radha Baldwin is a 84 year old year old lady here today for 6 month follow up appointment for review of medical conditions. Radha Baldwin is an 84-year-old female with a history of osteoporosis, femur fracture, and GERD, presenting for a 6-month follow-up. Radha reports a history of osteoporosis and has been receiving Reclast infusions annually since 2014, with the most recent infusion in July of last year. She sustained a femur fracture due to atorque injury, not a fall, and believes the fracture was related to her osteoporosis rather than the medication. She expresses concern about the long-term use of Reclast and mentions reading that it can cause atypical femur fractures. She also reports difficulty with balance and gait, stating, "I walk like a drunk," which she attributes to a leg length discrepancy following hip surgery and the presence of hardware. She denies recent falls. Radha is currently taking calcium and vitamin D supplements. Recent lab results show a calcium level of 10 mg/dL and a vitamin D level of 58.8 ng/mL. She also reports low potassium levels despite taking 10 mEq of potassium daily. She is also taking duloxetine 20 mg daily and has read about a recent recall of certain lot numbersdue to potential contamination. She is also on gabapentin for neuropathy, which has improved but now affects her ankles and feet. She is also taking pantoprazole once daily for GERD and reports increased reflux symptoms, particularly with certain foods like tomato paste. She denies using Carafate and prefers [id number] antacids as needed. Additionally, she is taking mometasone nasal spray and montelukast for post- nasal drip and drainage. She denies any issues with these medications. PAST MEDICAL HISTORY Diagnosis Date CVA (cerebral vascular accident) ([facility]) 06/02/2017 [facility] acute ischemic right posterior putamen stroke on MRI ASA, Plavix atorvastatin. Follow up with Dr. Witt scheduled. 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 May 2017; treated at [facility] Irritable bowel syndrome Osteoporosis, unspecified Stroke ([facility]) Thoracic or lumbosacral neuritis or radiculitis, unspecified Unspecified constipation Constipation Current Outpatient Medications Medication Sig clopidogrel (PLAVIX) 75 mg tablet Take 1 tablet by mouth once daily. potassium chloride (K-TAB) 10 mEq tablet Take 1 tablet by mouth daily with breakfast. rosuvastatin (CRESTOR) 5 mg tablet Take 1 tablet by mouth daily at bedtime. pantoprazole DR (PROTONIX) 40 mg tablet Take 1 tablet by mouth two times a day. Take on empty stomach, 1/2 hr before meal. (Patient taking differently: Take 40 mg by mouth once daily. Take on empty stomach, 1/2 hr before meal.) naproxen (NAPROSYN) 250 mg tablet 4 TIMES DAILY NEEDED gabapentin (NEURONTIN) 100 mg capsule Take 1 capsule by mouth daily at bedtime for 180 days. DULoxetine (CYMBALTA) 20 mg capsule Take 1 capsule by mouth once daily. sucralfate (CARAFATE) 1 gram tablet Take 1 tablet by mouth four times daily. Dissolve in 1 TBSP of water, before meals and at bedtime as directed (Patient taking differently: Take 1 g by mouth as needed. Dissolve in 1 TBSP of water, before meals and at bedtime as directed) scopolamine (TRANSDERM-SCOP) patch 1.5 mg/72 hr (1 mg over 3 days) Apply 1 Patch as directed every 72 hours. (Patient taking differently: Apply 1 Patch as directed every 72 hours. PRN) nitroglycerin sublingual (NITROQUICK) 0.4 mg SL tablet Dissolve 0.4mg tab (1tab) under tongue [id number] as needed for chest pain. If no response after max 3 tabs go to ED/notify doctor. meclizine (ANTIVERT) 25 mg tab Take 2 tablets by mouth once daily as needed (dizziness/motion sickness). polypodium leucotomos extract (HELIOCARE ORAL) Take 1 tablet by mouth as needed (Hold during the winter). SENNOSIDES/DOCUSATE SODIUM (SENOKOT-S ORAL) Take 1 Dose by mouth once daily as needed. Cholecalciferol, Vitamin D3, 25 mcg (1,000 unit) cap Take 1,000 Units by mouth two times a day. ascorbic acid(VITAMIN C 500 MG TAB) Take one(1) tablet two(2) times daily. acetaminophen(TYLENOL ARTHRITIS PAIN 650 MG TAB) Take two(2) tablets twice daily. VITAMIN E 400IU SOFTGEL Take one(1) capsule twice daily. fluticasone (FLONASE) 50 mcg/actuation nasal spray Use 1 [place] in each nostril once daily. For allergy season (Patient not taking: Reported on 07/20/2024) No current facility-administered medications for this visit. Review of Systems Objective BP 112/64 Pulse 80 Temp 36.7 C (98 F) Resp 16 Wt 57.9 kg (127 lb 10.3 oz) SpO2 97% BMI 23.35 kg/m Physical Exam Constitutional: Appearance: Normal appearance. [...] Content: Thought content normal. Judgment: Judgment normal. Latest Ref Rng 11/18/2023 02/09/2024 07/15/2024 WBC 3.70 - 11.00 k/uL 8.55 7.27 RBC 3.90 - 5.20 m/uL 3.95 3.82 (L) Hemoglobin 11.5 - 15.5 g/dL 12.4 11.8 Hematocrit 36.0 - 46.0 % 39.6 36.8 MCV 80.0 - 100.0 fL 100.3 (H) 96.3 MCH 26.0 - 34.0 pg 31.4 30.9 MCHC 30.5 - 36.0 g/dL 31.3 32.1 RDW-CV 11.5 - 15.0 % 13.5 12.8 Platelet Count 150 - 400 k/uL 337 288 MPV 9.0 - 12.7 fL 9.2 8.8 (L) Neut% % 67.3 Abs Neut (ANC) 1.45 - 7.50 k/uL 5.75 Lymph% % 18.9 Abs Lymph 1.00 - 4.00 k/uL 1.62 Winkler% % 8.3 Abs Winkler <0.87 k/uL 0.71 Eosin% % 3.5 Abs Eosin <0.46 k/uL 0.30 Baso% % 1.6 Abs Baso <0.11 k/uL 0.14 (H) Immature Gran % % 0.4 IMMATURE GRANS (ABS) <0.10 k/uL 0.03 NRBC /100 WBC 0.0 Absolute nRBC <0.01 k/uL <0.01 <0.01 DTYPE Auto Protein, Total 6.3 - 8.0 g/dL 7.2 7.2 Albumin 3.9 - 4.9 g/dL 4.4 4.5 Calcium 8.5 - 10.2 mg/dL 9.4 9.7 10.0 Bilirubin, Total 0.2 - 1.3 mg/dL 0.4 0.3 Alkaline Phosphatase 34 - 123 U/L 149 (H) 109 AST 13 - 35 U/L 20 17 ALT 7 - 38 U/L 13 9 Glucose 74 - 99 mg/dL 106 (H) 81 95 BUN 7 - 21 mg/dL 19 20 22 (H) Creatinine 0.58 - 0.96 mg/dL 0.56 (L) 0.62 0.64 Sodium 136 - 144 mmol/L 141 140 142 Potassium 3.7 - 5.1 mmol/L 3.7 3.6 (L) 3.6 (L) Chloride 98 - 107 mmol/L 103 104 105 CO2 22 - 30 mmol/L 28 25 25 Anion Gap 8 - 15 mmol/L 10 11 12 eGFR >=60 mL/min/1.73m 92 90 88 Cholesterol, Total <200 mg/dL 142 150 Triglyceride <150 mg/dL 78 78 HDL Cholesterol >39 mg/dL 49 55 Non HDL Cholesterol <130 mg/dL 93 95 Fasting Time hrs 12 12 VLDL Cholesterol <30 mg/dL 16 16 TC:HDL Ratio <5.10 2.90 2.73 LDL Cholesterol <100 mg/dL 77 79 LDL:HDL Ratio <2.54 1.57 1.44 Hemoglobin A1C 4.3 - 5.6 % 5.1 Estimated Average Glucose mg/dL 100 Magnesium 1.7 - 2.3 mg/dL 2.5 (H) 2.4 (H) Vitamin D 25 Hydroxy 31.0 - 80.0 ng/mL 65.2 58.8 Legend: (H) High (L) Low Assessment and Plan # Burning sensation of feet (R20.8) - Neuropathy symptoms have improved but now extend to the ankles and feet. - Resumed gabapentin therapy; transmitted prescription to pharmacy. # Recurrent major depressive disorder, in full remission (HCC) (F33.42) - Clinically stable on duloxetine 20 mg daily. - Discussed recent recall of certain duloxetine batches due to N- nitrosadoloxetine impurity; provided patient with specific lot numbers and expiration dates to check against current supply. - Transmitted prescription refill to pharmacy. # Age-related osteoporosis with current pathological fracture, sequela (M80.00XS) - Recent femur fracture attributed to osteoporosis. - Patient has been on Reclast annually; last dose administered July of last year. - Discussed potential risks of long-term Reclast use, including atypical femur fractures. - Encouraged continuation of calcium and vitamin D supplementation; recent labs show calcium at 10 mg/dL and vitamin D at 58.8 ng/mL. - Recommended weight-bearing exercises to improve bone density. - Next bone density scan scheduled for August 2025. # Vitamin D deficiency (E55.9) - Currently managed with supplementation; recent lab shows vitamin D level at 58.8 ng/mL. - Continue current supplementation regimen. # Hypokalemia (E87.6) - Recent lab shows low potassium levels. - Increased potassium supplementation to 20 mEq daily. - Advised increasing dietary intake of potassium-rich foods and maintaining adequate hydration. # Hyperlipidemia, unspecified hyperlipidemia type (E78.5) - Recent lipid panel shows LDL at 70 mg/dL, HDL at 55 mg/dL, and triglycerides at 70 mg/dL. - Continue current lipid management regimen. # Pain of left hip (M25.552) - Discussed as contributing factor to gait instability. - Recommended weight-bearing exercises to improve strength and stability. # Encounter for immunization (Z23) - Tdap vaccine last administered in 2012; due for renewal. - Advised patient that Tdap can be administered at a pharmacy and is covered by Medicare Part D. Labs ordered for next appointment. Jonny Torres MD documented [facility] Telephone encounter Note * Telephone Encounter - Donna Donis LPN - 06/24/2024 4:41 PM EST Prescription Refill Information The patient has been identified by name and date of : Yes Caregiver verified no other encounters exist for this prescription request: Yes Caregiver confirmed with patient/requestor that no other refills are due, in the near future, with this provider at this time: Yes The last office visit in the department: 04/06/24 Does the patient have a future office visit with this provider/department: Yes 07/20/24 Requested Prescriptions Pending Prescriptions Disp Refills clopidogrel (PLAVIX) 75 mg tablet 30 tablet 11 Sig: Take 1 tablet by mouth once daily. Donna Donis LPN June 24, 2024 4:42 PM [facility]11-15-2024 Miscellaneous Notes* Telephone Encounter - Donna Donis LPN - 06/24/2024 4:41 PM EST Prescription Refill Information The patient has been identified by name and date of : Yes Caregiver verified no other encounters exist for this prescription request: Yes Caregiver confirmed with patient/requestor that no other refills are due, in the near future, with this provider at this time: Yes The last office visit in the department: 04/06/24 Does the patient have a future office visit with this provider/department: Yes 07/20/24 Requested Prescriptions Pending Prescriptions Disp Refills clopidogrel (PLAVIX) 75 mg tablet 30 tablet 11 Sig: Take 1 tablet by mouth once daily. Donna Donis LPN June 24, 2024 4:42 PM documented in this encounterFulton [facility]08-28-2024 Instructions* Patient Instructions* Jonny Torres MD - 04/06/2024 3:47 PM EDT -Complete a follow-up urinalysis with a microscopic examination to check for the presence of blood in the urine. This test will be done at the lab. - Monitor for any recurrence of UTI symptoms, such as urgency or blood in the urine, and report anychanges. - Continue taking Duloxetine at night as it helps with sleepiness. - Avoid taking Ibuprofen with Plavix due to increased risk of bleeding and bruising. If needed, take it with food and monitor for any side effects. - Continue taking vitamins three times a week and eye vitamin daily, which both contain vitamin D. - Stay hydrated and maintain a balanced diet with adequate protein and vitamin C to support healing. - Your next appointment is scheduled for July 20, but you can come in earlier if needed. You do not need to make an appointment for your labs; you can walk in. documented in this encounterFulton [facility]08-28-2024 History of Present illness Narrative* Jonny Torres MD - 04/06/2024 3:30 PM EDT This note was created using NoteWriter. Subjective Radha Baldwin is a 84 year old female. Patient presents with: Established Patient: EC follow up 03/26 SUBJECTIVE: Radha Baldwin is a 84 year old year old lady here today for EC follow up appointment for review of medical conditions. Patient is an 84-year-old female presenting for a follow-up visit after being seen at urgent care for a UTI. Patient reports initial symptoms of urgency and hematuria, which resolved after treatment with Macrobid. She denies any back pain, fever, or chills during the episode. Patient also mentions a brief episode of dizziness the night before visiting urgent care, describedas a "woozy" feeling upon standing after bending down. She notes that her heart felt like it was pounding during the episode. She denies any current dizziness or palpitations. Patient has a history of taking gabapentin, which she discontinued due to somnolence. She is currently taking duloxetine at night instead of in the morning due to somnolence. She occasionally takes ibuprofen for pain, despite being on Plavix. She has stopped taking baby aspirin due to concerns about bleeding and is currently taking vitamins three times a week and an eye vitamin daily, both of which contain vitamin D. PAST MEDICAL HISTORY 06/02/2017: CVA (cerebral vascular accident) (HCC) Comment: [facility] acute ischemic right posterior putamen stroke on MRI ASA, Plavix atorvastatin. Follow up with Dr. Witt scheduled. 11/14/2015: Gastroesophageal reflux disease without esophagitis Comment: Past EGD, Colon (2012) 07/12/2017: History of recent stroke Comment: Right thalamic stroke with associated problems with facial droop, speech and ambulation; resolved but still fatigued since. May 2017; treated at [facility] No date: Irritable bowel syndrome No date: Osteoporosis, unspecified No date: Stroke (HCC) No date: Thoracic or lumbosacral neuritis or radiculitis, unspecified No date: Unspecified constipation Comment: Constipation Current Outpatient Medications Medication Sig potassium chloride (K-TAB) 10 mEq tablet Take 1 tablet by mouth daily with breakfast. rosuvastatin (CRESTOR) 5 mg tablet Take 1 tablet by mouth daily at bedtime. pantoprazole DR (PROTONIX) 40 mg tablet Take 1 tablet by mouth two times a day. Take on empty stomach, 1/2 hr before meal. (Patient taking differently: Take 40 mg by mouth once daily. Take on empty stomach, 1/2 hr before meal.) naproxen (NAPROSYN) 250 mg tablet 4 TIMES DAILY NEEDED DULoxetine (CYMBALTA) 20 mg capsule Take 1 capsule by mouth once daily. clopidogrel (PLAVIX) 75 mg tablet Take 1 tablet by mouth once daily. sucralfate (CARAFATE) 1 gram tablet Take 1 tablet by mouth four times daily. Dissolve in 1 TBSP of water, before meals and at bedtime as directed (Patient taking differently: Take 1 g by mouth as needed. Dissolve in 1 TBSP of water, before meals and at bedtime as directed) scopolamine (TRANSDERM-SCOP) patch 1.5 mg/72 hr (1 mg over 3 days) Apply 1 Patch as directed every 72 hours. (Patient taking differently: Apply 1 Patch as directed every 72 hours. PRN) nitroglycerin sublingual (NITROQUICK) 0.4 mg SL tablet Dissolve 0.4mg tab (1tab) under tongue glyey0apt as needed for chest pain. If no response after max 3 tabs go to ED/notify doctor. fluticasone (FLONASE) 50 mcg/actuation nasal spray Use 1 [place] in each nostril once daily. For allergy season meclizine (ANTIVERT) 25 mg tab Take 2 tablets by mouth once daily as needed (dizziness/motion sickness). polypodium leucotomos extract (HELIOCARE ORAL) Take 1 tablet by mouth as needed. SENNOSIDES/DOCUSATE SODIUM (SENOKOT-S ORAL) Take 1 Dose by mouth once daily as needed. ascorbic acid(VITAMIN C 500 MG TAB) Take one(1) tablet two(2) times daily. acetaminophen(TYLENOL ARTHRITIS PAIN 650 MG TAB) Take two(2) tablets twice daily. VITAMIN E 400IU SOFTGEL Take one(1) capsule twice daily. gabapentin (NEURONTIN) 100 mg capsule Take 1 capsule by mouth daily at bedtime for 180 days. (Patient not taking: Reported on 02/16/2024) aspirin, enteric coated (ASPIRIN, ENTERIC COATED) 81 mg EC tablet Take 1 tablet by mouth once daily. (Patient not taking: Reported on 04/06/2024) Cholecalciferol, Vitamin D3, 25 mcg (1,000 unit) cap Take 1,000 Units by mouth twice daily. (Patient not taking: Reported on 04/06/2024) No current facility-administered medications for this visit. Review of Systems Objective BP 122/78 Pulse 76 Temp 36.9 C (98.5 F) Resp 18 Wt 57.2 kg (126 lb 1.7 oz) SpO2 96% BMI23.06 kg/m Last 5 Encounter Wt Readings: Date: Wt: 04/06/2024 57.2 kg (126 lb 1.7 oz) 03/26/2024 55.8 kg (123 lb) 02/16/2024 56.2 kg (123 lb 12.8 oz) 10/01/2023 57.6 kg (127 lb) 08/14/2023 58.5 kg (129 lb) No waist measurement recorded Estimated body mass index is 23.06 kg/m as calculated from the following: Height as of 07/20/23: 157.5 cm (5' 2"). Weight as of this encounter: 57.2 kg (126 lb 1.7 oz). Last 5 Encounter BP Readings: Date: BP: 04/06/2024 122/78 03/26/2024 181/96 02/16/2024 128/74 10/01/2023 130/60 08/14/2023 191/77 Physical Exam Constitutional: Appearance: Normal appearance. HENT: Head: Normocephalic. Eyes: Conjunctiva/sclera: Conjunctivae normal. Cardiovascular: Rate and Rhythm: Normal rate and regular rhythm. Heart sounds: Normal heart sounds. Pulmonary: Effort: Pulmonary effort is normal. Breath sounds: Normal breath sounds. Skin: General: Skin is warm and dry. Comments: Healing bruise on shins at different ages Neurological: General: No focal deficit present. Mental Status: She is alert and oriented to person, place, and time. Psychiatric: Mood and Affect: Mood normal. Behavior: Behavior normal. Thought Content: Thought content normal. Judgment: Judgment normal. Latest Ref Rng 11/18/2023 02/09/2024 WBC 3.70 - 11.00 k/uL 8.55 RBC 3.90 - 5.20 m/uL 3.95 Hemoglobin 11.5 - 15.5 g/dL 12.4 Hematocrit 36.0 - 46.0 % 39.6 MCV 80.0 - 100.0 fL 100.3 (H) MCH 26.0 - 34.0 pg 31.4 MCHC 30.5 - 36.0 g/dL 31.3 RDW-CV 11.5 - 15.0 % 13.5 Platelet Count 150 - 400 k/uL 337 MPV 9.0 - 12.7 fL 9.2 Neut% % 67.3 Abs Neut (ANC) 1.45 - 7.50 k/uL 5.75 Lymph% % 18.9 Abs Lymph 1.00 - 4.00 k/uL 1.62 Winkler% % 8.3 Abs Winkler <0.87 k/uL 0.71 Eosin% % 3.5 Abs Eosin <0.46 k/uL 0.30 Baso% % 1.6 Abs Baso <0.11 k/uL 0.14 (H) Immature Gran % % 0.4 IMMATURE GRANS (ABS) <0.10 k/uL 0.03 NRBC /100 WBC 0.0 Absolute nRBC <0.01 k/uL <0.01 DTYPE Auto Protein, Total 6.3 - 8.0 g/dL 7.2 Albumin 3.9 - 4.9 g/dL 4.4 Calcium 8.5 - 10.2 mg/dL 9.4 9.7 Bilirubin, Total 0.2 - 1.3 mg/dL 0.4 Alkaline Phosphatase 34 - 123 U/L 149 (H) AST 13 - 35 U/L 20 ALT 7 - 38 U/L 13 Glucose 74 - 99 mg/dL 106 (H) 81 BUN 7 - 21 mg/dL 19 20 Creatinine 0.58 - 0.96 mg/dL 0.56 (L) 0.62 Sodium 136 - 144 mmol/L 141 140 Potassium 3.7 - 5.1 mmol/L 3.7 3.6 (L) Chloride 98 - 107 mmol/L 103 104 CO2 22 - 30 mmol/L 28 25 Anion Gap 8 - 15 mmol/L 10 11 eGFR >=60 mL/min/1.73m 92 90 Cholesterol, Total <200 mg/dL 142 Triglyceride <150 mg/dL 78 HDL Cholesterol >39 mg/dL 49 Non HDL Cholesterol <130 mg/dL 93 Fasting Time hrs 12 VLDL Cholesterol <30 mg/dL 16 TC:HDL Ratio <5.10 2.90 LDL Cholesterol <100 mg/dL 77 LDL:HDL Ratio <2.54 1.57 Hemoglobin A1C 4.3 - 5.6 % 5.1 Estimated Average Glucose mg/dL 100 Magnesium 1.7 - 2.3 mg/dL 2.5 (H) Vitamin D 25 Hydroxy 31.0 - 80.0 ng/mL 65.2 Legend: (H) High (L) Low Assessment and Plan # Gross hematuria # Urinary tract infection with hematuria, site unspecified - Initial symptoms included urgency and gross hematuria, which resolved with Macrobid treatment. - Urine culture from urgent care showed multiple bacterial growths, likely contaminated. - Ordered follow-up urinalysis with microscopy and urine culture to confirm resolution of hematuriaand rule out persistent infection. - Patient to provide a urine sample at the lab downstairs. # Dizziness - Episode of dizziness occurred the night before urgent care visit, associated with a sensation of heart pounding; resolved spontaneously. - Blood pressure at urgent care was elevated at 186 mmHg, now stabilized at 122/78 mmHg. - Likely related to acute illness; no further episodes reported. - Continue monitoring blood pressure. # Vitamin D deficiency - Previously on Vitamin D 1000 IU twice daily. - Currently taking vitamins three times weekly and an eye vitamin daily, both containing Vitamin D. - Recent labs in February showed adequate Vitamin D levels. - Next set of labs, including Vitamin D, scheduled for July 20. Encounter Diagnosis ICD-10-CM 1. Gross hematuria R31.0 URINALYSIS, WITH MICROSCOPIC URINE CULTURE Resolved. Will check for microscopic hematuria 2. Urinary tract infection with hematuria, site unspecified N39.0 URINALYSIS, WITH MICROSCOPIC R31.9 URINE CULTURE Follow up on UTI symptoms that have resolved with macrobid. 3. Dizziness R42 Woozy feeling when stood up from bending down. Also heart pounding.BP was up at [facility] but fine today 4. Vitamin D deficiency E55.9 Will update lab in July. Above issues addressed with patient. Patient involved [...] sleep. Jonny Torres MD documented in this encounterFulton [facility]08-17-2024 History of Present illness Narrative* Yeimi Philip APRN.TALISHA - 03/26/2024 11:23 AM EDT This note was created using Soteirariter. Subjective Radha Baldwin is a 83 year old female. Presents with 1 day history of burning urgency and blood in her urine. Patient reports she felt a little dizzy last night but has no further episodes. Alsoreports some mild nausea but no vomiting. Objective BP 181/96 Pulse 92 Temp 36.8 C (98.3 F) Resp 18 Wt 55.8 kg (123 lb) SpO2 97% BMI 22.50 kg/m Physical Exam PHYSICAL EXAMINATION: General appearance: Well appearing, alert, in no acute distress, well-hydrated, well nourished. Abdomen: Normal abdominal exam, Abdomen soft, non-tender. Bowel sounds normal. No masses, organomegaly Assessment and Plan ASSESSMENT/PLAN: 1. Burning with urination - ICD9: 788.1, ICD10: R30.0 (primary diagnosis) - UA DIP, URINE (POC) - URINE CULTURE - NITROFURANTOIN MONOHYDRATE & MACROCRYSTAL 100 MG ORAL CAP 2. Urinary tract infection with hematuria, site unspecified - ICD9: 599.0, 599.70, ICD10: N39.0, R31.9 acute - UA positive for eduardo esterase, hematuria, proteinuria, and bilirubin - Send urine for culture - Begin treatment with Macrobid 100 mg BID for 5 days - Patient education for prevention given - NITROFURANTOIN MONOHYDRATE & MACROCRYSTAL 100 MG ORAL CAP Yeimi Philip APRN.ASSOCIATE PROPERTY MANAGER documented in this encounterFulton County [facility] Center07-12-2024 NoteDangelo Baldwin comes in today 6 months status post ORIF of her right periprosthetic femur fracture. She is doing well. Wound is clean, dry, intact. No erythema. No drainage. No lymphangitis. No cellulitis. She has no cane. No walker. Ambulating without an assistive device. X-RAYS No change in the hardware with good callus formation. IMPRESSION 6 months open reduction-internal fixation right periprosthetic femur fracture. PLAN We will have her do activities as tolerated. I will see her in 6 months for a year checkup. AUTHENTICATED BY CRISSY LUU, ON 02/20/2024 11:58:56OhNav[facility] [id number] History of Present illness Narrative* Jonny Torres MD - 02/16/2024 5:59 PM EDT This note was created using Soteirariter. Subjective Radha Baldwin is a 83 year old female. Patient presents with: F/U 6 months: Labs prior SUBJECTIVE: Radha Baldwin is a 83 year old year old lady here today for 6 month follow up appointment for review of medical conditions. Reviewed was on potassium while in the hospital for healing from femur spiral fracture. Taking vitamin and magnesium. Discussed potassium keeps getting low. Protonix--needs just one a day but once in a while needs a second one or a TUMS. PAST MEDICAL HISTORY Diagnosis Date CVA (cerebral vascular accident) (HCC) 06/02/2017 [facility] acute ischemic right posterior putamen stroke on MRI ASA, Plavix atorvastatin. Follow up with Dr. Witt scheduled. 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 May 2017; treated at [facility] Irritable bowel syndrome Osteoporosis, unspecified Stroke (HCC) Thoracic or lumbosacral neuritis or radiculitis, unspecified Unspecified constipation Constipation Current Outpatient Medications Medication Sig rosuvastatin (CRESTOR) 5 mg tablet Take 1 tablet by mouth daily at bedtime. pantoprazole DR (PROTONIX) 40 mg tablet Take 1 tablet by mouth two times a day. Take on empty stomach, 1/2 hr before meal. (Patient taking differently: Take 40 mg by mouth once daily. Take on empty stomach, 1/2 hr before meal.) naproxen (NAPROSYN) 250 mg tablet 4 TIMES DAILY NEEDED DULoxetine (CYMBALTA) 20 mg capsule Take 1 capsule by mouth once daily. clopidogrel (PLAVIX) 75 mg tablet Take 1 tablet by mouth once daily. sucralfate (CARAFATE) 1 gram tablet Take 1 tablet by mouth four times daily. Dissolve in 1 TBSP of water, before meals and at bedtime as directed (Patient taking differently: Take 1 g by mouth as needed. Dissolve in 1 TBSP of water, before meals and at bedtime as directed) scopolamine (TRANSDERM-SCOP) patch 1.5 mg/72 hr (1 mg over 3 days) Apply 1 Patch as directed every 72 hours. (Patient taking differently: Apply 1 Patch as directed every 72 hours. PRN) nitroglycerin sublingual (NITROQUICK) 0.4 mg SL tablet Dissolve 0.4mg tab (1tab) under tongue [id number] as needed for chest pain. If no response after max 3 tabs go to ED/notify doctor. fluticasone (FLONASE) 50 mcg/actuation nasal spray Use 1 [place] in each nostril once daily. For allergy season meclizine (ANTIVERT) 25 mg tab Take 2 tablets by mouth once daily as needed (dizziness/motion sickness). polypodium leucotomos extract (HELIOCARE ORAL) Take by mouth. SENNOSIDES/DOCUSATE SODIUM (SENOKOT-S ORAL) Take 1 Dose by mouth once daily as needed. aspirin, enteric coated (ASPIRIN, ENTERIC COATED) 81 [...] 400IU SOFTGEL Take one(1) capsule twice daily. potassium chloride (K-TAB) 10 mEq tablet Take 1 tablet by mouth daily with breakfast. gabapentin (NEURONTIN) 100 mg capsule Take 1 capsule by mouth daily at bedtime for 180 days. (Patient not taking: Reported on 02/16/2024) No current facility-administered medications for this visit. Added potassium pill today Review of Systems Objective BP 128/74 Pulse 87 Temp 36.8 C (98.2 F) Resp 18 Wt 56.2 kg (123 lb 12.8 oz) SpO2 97% BMI 22.64 kg/m Last 5 Encounter Wt Readings: Date: Wt: 02/16/2024 56.2 kg (123 lb 12.8 oz) 10/01/2023 57.6 kg (127 lb) 08/14/2023 58.5 kg (129 lb) 07/20/2023 57.2 kg (126 lb) 01/12/2023 55.3 kg (122 lb) No waist measurement recorded Estimated body mass index is 22.64 kg/m as calculated from the following: Height as of 07/20/23: 157.5 cm (5' 2"). Weight as of this encounter: 56.2 kg (123 lb 12.8 oz). Last 5 Encounter BP Readings: Date: BP: 02/16/2024 128/74 10/01/2023 130/60 08/14/2023 191/77 07/20/2023 122/68 07/13/2023 150/55 Physical Exam Constitutional: Appearance: Normal appearance. HENT: [...] Content: Thought content normal. Judgment: Judgment normal. Latest Ref Rng 06/12/2023 11/18/2023 02/09/2024 WBC 3.70 - 11.00 k/uL 6.30 8.55 RBC 3.90 - 5.20 m/uL 4.17 3.95 Hemoglobin 11.5 - 15.5 g/dL 13.4 12.4 Hematocrit 36.0 - 46.0 % 40.6 39.6 MCV 80.0 - 100.0 fL 97.4 100.3 (H) MCH 26.0 - 34.0 pg 32.1 31.4 MCHC 30.5 - 36.0 g/dL 33.0 31.3 RDW-CV 11.5 - 15.0 % 12.4 13.5 Platelet Count 150 - 400 k/uL 222 337 MPV 9.0 - 12.7 fL 8.8 (L) 9.2 Neut% % 67.3 Abs Neut (ANC) 1.45 - 7.50 k/uL 5.75 Lymph% % 18.9 Abs Lymph 1.00 - 4.00 k/uL 1.62 Winkler% % 8.3 Abs Winkler <0.87 k/uL 0.71 Eosin% % 3.5 Abs Eosin <0.46 k/uL 0.30 Baso% % 1.6 Abs Baso <0.11 k/uL 0.14 (H) Immature Gran % % 0.4 IMMATURE GRANS (ABS) <0.10 k/uL 0.03 NRBC /100 WBC 0.0 Absolute nRBC <0.01 k/uL <0.01 <0.01 DTYPE Auto Protein, Total 6.3 - 8.0 g/dL 6.7 7.2 Albumin 3.9 - 4.9 g/dL 4.3 4.4 Calcium 8.5 - 10.2 mg/dL 9.0 9.4 9.7 Bilirubin, Total 0.2 - 1.3 mg/dL 0.3 0.4 Alkaline Phosphatase 34 - 123 U/L 79 149 (H) AST 13 - 35 U/L 18 20 ALT 7 - 38 U/L 11 13 Glucose 74 - 99 mg/dL 91 106 (H) 81 BUN 7 - 21 mg/dL 17 19 20 Creatinine 0.58 - 0.96 mg/dL 0.65 0.56 (L) 0.62 Sodium 136 - 144 mmol/L 139 141 140 Potassium 3.7 - 5.1 mmol/L 3.9 3.7 3.6 (L) Chloride 98 - 107 mmol/L 104 103 104 CO2 22 - 30 mmol/L 25 28 25 Anion Gap 8 - 15 mmol/L 10 10 11 eGFR >=60 mL/min/1.73m 89 92 90 Cholesterol, Total <200 mg/dL 142 142 Triglyceride <150 mg/dL 105 78 HDL Cholesterol >39 mg/dL 51 49 Non HDL Cholesterol <130 mg/dL 91 93 Fasting Time hrs 12 12 VLDL Cholesterol <30 mg/dL 21 16 TC:HDL Ratio <5.10 2.78 2.90 LDL Cholesterol <100 mg/dL 70 77 LDL:HDL Ratio <2.54 1.37 1.57 Hemoglobin A1C 4.3 - 5.6 % 5.1 Estimated Average Glucose mg/dL 100 Vitamin D 25 Hydroxy 31.0 - 80.0 ng/mL 48.5 65.2 Magnesium 1.7 - 2.3 mg/dL 2.3 2.5 (H) Legend: (L) Low (H) High Assessment and Plan Encounter Diagnosis ICD-10-CM 1. Hyperlipidemia, unspecified hyperlipidemia type E78.5 Well controlled. Stay on same dose Crestor 2. Hypokalemia E87.6 BASIC METABOLIC PANEL Will start 10meq potassium daily since keeps dropping and gets leg cramping 3. Vitamin D deficiency E55.9 Doing well on current supplement. 4. IFG (impaired fasting glucose) R73.01 BASIC METABOLIC PANEL Glucose normal this time and HgA1C also normal range 5. Closed fracture of right femur with routine healing, unspecified fracture morphology, unspecified portion of femur, subsequent encounter S72.91XD Healed well. 6. Age-related osteoporosis without current pathological fracture M81.0 Done with Reclast. BMD still osteoporosis. Follow up BMD and treat as needed 7. Elevated alkaline phosphatase level R74.8 Monitor for now. Up and down to normal range. No other liver issues noted. Above issues addressed with patient. Patient involved [...] sleep. Jonny Torres MD [facility] Telephone encounter Note * Telephone Encounter - Donna Donis LPN - 02/02/2024 1:10 PM EDT Prescription Refill Information The patient has been identified by name and date of : Yes Caregiver verified no other encounters exist for this prescription request: Yes Caregiver confirmed with patient/requestor that no other refills are due, in the near future, with this provider at this time: Yes The last office visit in the department: 10/01/2023 Does the patient have a future office visit with this provider/department: Yes 02/16/2024 Requested Prescriptions Pending Prescriptions Disp Refills rosuvastatin (CRESTOR) 5 mg tablet 30 tablet 11 Sig: Take 1 tablet by mouth daily at bedtime. Donna Donis LPN February 02, 2024 1:10 PM [facility]06-[facility] Miscellaneous Notes* Telephone Encounter - Donna Donis LPN - 02/02/2024 1:10 PM EDT Prescription Refill Information The patient has been identified by name and date of : Yes Caregiver verified no other encounters exist for this prescription request: Yes Caregiver confirmed with patient/requestor that no other refills are due, in the near future, with this provider at this time: Yes The last office visit in the department: 10/01/2023 Does the patient have a future office visit with this provider/department: Yes 02/16/2024 Requested Prescriptions Pending Prescriptions Disp Refills rosuvastatin (CRESTOR) 5 mg tablet 30 tablet 11 Sig: Take 1 tablet by mouth daily at bedtime. Donna Donis LPN February 02, 2024 1:10 PM documented in this encounterF[facility]06-[facility] Telephone encounter Note * Telephone Encounter - Radha Pablo LPN - 01/18/2024 3:55 PM EDT Prescription Refill Information The patient has been identified by name and date of : Yes Caregiver verified no other encounters exist for this prescription request: Yes Caregiver confirmed with patient/requestor that no other refills are due, in the near future, with this provider at this time: Yes The last office visit in the department: 10/01/23 Does the patient have a future office visit with this provider/department: Yes Requested Prescriptions Pending Prescriptions Disp Refills pantoprazole DR (PROTONIX) 40 mg tablet 60 tablet 11 Sig: Take 1 tablet by mouth two times a day. Take on empty stomach, 1/2 hr before meal. Radha Pablo LPN January 18, 2024 3:55 PM [facility]06-10-[facility] Miscellaneous Notes* Telephone Encounter - Radha Pablo LPN - 01/18/2024 3:55 PM EDT Prescription Refill Information The patient has been identified by name and date of : Yes Caregiver verified no other encounters exist for this prescription request: Yes Caregiver confirmed with patient/requestor that no other refills are due, in the near future, with this provider at this time: Yes The last office visit in the department: 10/01/23 Does the patient have a future office visit with this provider/department: Yes Requested Prescriptions Pending Prescriptions Disp Refills pantoprazole DR (PROTONIX) 40 mg tablet 60 tablet 11 Sig: Take 1 tablet by mouth two times a day. Take on empty stomach, 1/2 hr before meal. Radha Pablo LPN January 18, 2024 3:55 PM documented in this encounterFulton [facility]02-22-2024 Miscellaneous Notes* Telephone Encounter - Jonny Torres MD - 10/01/2023 7:00 PM EST Noted * Telephone Encounter - Kelley Husain RN - 10/01/2023 11:47 AM EST Endy PT calling from [facility] to report plan of care for patient and physical therapy will visit patient 1 time a week for first week, 2 times a week for 3 weeks, and 1 time a week for 3 weeks. No call back needed unless there are questions. Kelley Husain RN documented in this encounterFulton [facility]02-22-2024 History of Present illness Narrative* Evelyn Larai, TACO.4TH GRADE TEACHER - 10/01/2023 5:03 PM EST SUBJECTIVE: DTaP,Tdap,Td Vaccine(2 - Td or Tdap) due on 06/20/2023 Advance Directive Discussion due on 08/10/2023 HPI Radha Baldwin is a 83 year old female. PMH significant for ACTIVE PROBLEM LIST Constipation Osteoporosis Thoracic Or Lumbosacral Neuritis Or Radiculitis, Unspecified Hyperlipidemia Anemia History of Total Right Hip Arthroplasty Gastroesophageal Reflux Disease Without Esophagitis Recurrent Major Depressive Disorder, in Remission (Hcc) Uveitis History of Recent Stroke Nocturia Vitamin D Deficiency Debility History of Repair of Hip Joint Presents today for hospital discharge follow up appointment. She was admitted to [facility] for right femur fracture. She underwent ORIF of right femur August 22, [address] Luu. She was admitted to TCU for debility. Admitted for rehabilitation and strengthening prior to discharge home alone. She was discharged home September 25 with home health care PT OT. She was discharged home using a walker for ambulation. Today notes she is doing okay in her home with a walker. She notes wound is healed. There are some incisional pain but is mild to moderate. She notes abnormal sensation in her feet, toe especially sensation of burning, right is greater than left.. Naproxen does help somewhat. She has taken duloxetine in the past but it made her feel sedated so dose was decreased and doing okay with that. She reports eating and drinking normally although appetite seems somewhat decreased. Notes she has decreased sensation of smell persisting since COVID. No complaint of constipation. Notes home care is coming out 2 times per week for physical therapy. Review of Systems Constitutional: Negative. Musculoskeletal: Positive for gait problem (using walker). Objective BP 130/60 Pulse 78 Resp 16 Wt 57.6 kg (127 lb) SpO2 96% BMI 23.23 kg/m Physical Exam Vitals and nursing note reviewed. Constitutional: Appearance: Normal appearance. HENT: Head: Normocephalic. Eyes: Conjunctiva/sclera: Conjunctivae normal. Cardiovascular: Rate and Rhythm: Normal rate. Pulmonary: Effort: Pulmonary effort is normal. Abdominal: General: Bowel sounds are normal. Palpations: Abdomen is soft. Musculoskeletal: Comments: Walking with walker, status post ORIF right hip healing well, abnormal sensation in toes right greater than left Skin: General: Skin is warm and dry. Neurological: General: No focal deficit present. Mental Status: She is alert and oriented to person, place, and time. ALLERGIES Allergen Reactions Fentanyl Itching Codeine GI Upset Penicillins Unknown Medication naproxen (NAPROSYN) 250 mg tablet 4 TIMES DAILY NEEDED DULoxetine (CYMBALTA) 20 mg capsule Take 1 capsule by mouth once daily. clopidogrel (PLAVIX) 75 mg tablet Take 1 tablet by mouth once daily. rosuvastatin (CRESTOR) 5 mg tablet Take 1 tablet by mouth daily at bedtime. pantoprazole DR (PROTONIX) 40 mg tablet Take 1 tablet by mouth twice daily. Take on empty stomach, 1/2 hr before meal. scopolamine (TRANSDERM-SCOP) patch 1.5 mg/72 hr (1 mg over 3 days) Apply 1 Patch as directed every 72 hours. nitroglycerin sublingual (NITROQUICK) 0.4 mg SL tablet Dissolve 0.4mg tab (1tab) under tongue [id number] as needed for chest pain. If no response after max 3 tabs go to ED/notify doctor. fluticasone (FLONASE) 50 mcg/actuation nasal spray Use 1 [place] in each nostril once daily. For allergy season meclizine (ANTIVERT) 25 mg tab Take 2 tablets by mouth once daily as needed (dizziness/motion sickness). COMPOUNDED PRESCRIPTION Scopolamine 1.5 patch Apply first patch 4 hours to hairless area behind earprior to travel then change every 72 hour while traveling polypodium leucotomos extract (HELIOCARE ORAL) Take by mouth. aspirin, enteric coated (ASPIRIN, ENTERIC COATED) 81 [...] 400IU SOFTGEL Take one(1) capsule twice daily. potassium chloride ER (KLOR-CON) 20 mEq tablet gabapentin (NEURONTIN) 100 mg capsule Take 1 capsule by mouth daily at bedtime for 180 days. sucralfate (CARAFATE) 1 gram tablet Take 1 tablet by mouth four times daily. Dissolve in 1 TBSP of water, before meals and at bedtime as directed (Patient not taking: Reported on 05/23/2022) BIOTIN ORAL Take by mouth once daily. (Patient not taking: Reported on 01/12/2023) SENNOSIDES/DOCUSATE SODIUM (SENOKOT-S ORAL) Take by mouth once daily. (Patient not taking: Reportedon 01/12/2023) PAST MEDICAL HISTORY Diagnosis Date CVA (cerebral vascular accident) ([facility]) 06/02/2017 [facility] acute ischemic right posterior putamen stroke on MRI ASA, Plavix atorvastatin. Follow up with Dr. Witt scheduled. 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 May 2017; treated at [facility] Irritable bowel syndrome Osteoporosis, unspecified Stroke ([facility]) Thoracic or lumbosacral neuritis or radiculitis, unspecified Unspecified constipation Constipation Social History Tobacco Use Smoking status: Never Smokeless tobacco: Never Vaping Use Vaping Use: Never used Substance Use Topics Alcohol use: No Drug use: No ASSESSMENT/PLAN: 1. Closed fracture of right femur with routine healing, unspecified fracture morphology, unspecified portion of femur, subsequent encounter - ICD9: V54.15, ICD10: S72.91XD (primary diagnosis) Following with orthopedic provider, doing well 2. Hypokalemia - ICD9: 276.8, ICD10: E87.6 Hypokalemia noted in the hospital, currently taking potassium. Notes pills are huge, will check potassium 1 or 2 days after she completes current dosing to see ifshe needs supplementation ongoing. - BASIC METABOLIC PNL 3. Burning sensation of feet - ICD9: 782.0, ICD10: R20.8 Noted intolerant of higher dose of duloxetine. Will try adding gabapentin at bedtime to see if thishelps - GABAPENTIN 100 MG CAPSULE 4. Debility - ICD9: 799.3, ICD10: R53.81 She was admitted to TCU and has PT through home health care working on gait and strength. Defers additional follow up, will see PCP in January. 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 Muriel Sierra RN * Telephone Encounter - Jonny Torres MD - 09/21/2023 7:46 PM EST Can follow for orders Make sure we have up to date Discharge info and medication lis reconciled * Telephone Encounter - Muriel Sierra RN - 09/21/2023 11:56 AM EST Lu with [facility] calling. States pt is to be discharged from [facility] TCU unit this Thursday. Pt there due to fracture of right femur. Pt has orders for [facility] Nursing , PT and OT. Asking if provider agreeable to follow patient for these orders? Call Lu at [phone]. Thank you. documented in this encounterFulton County [facility] Center02-09-2024 Discharge summary Author Giovanni Martinez [facility] September 18, 2023 2:20pm Note Date/Time September 18, 2023 2 :11pm [facility] Medical Records Department [facility] [place] [address] Discharge Summary 09/18/23 1410 MR#: [id number] Acct: [id number] Name: RADHA BALDWIN Rep #:[id number] : 1940 83 From: Giovanni Martinez MD PCP: Dr. Jonny Torres MD Status:AD M IN Location: [place] [address] Providers Date of Admission: 08/28/23 Primary Care Physician: Dr. Jonny Torres MD Reason For Visit: INTERNAL FIXATION RIGHT FEMUR Diagnosis Discharge Diagnosis (1) Debility: Status: Acute Code(s): R53.81 - Other malaise (2) Vitamin D deficiency: Status: Acute Code(s): E55.9 - Vitamin D deficiency, unspecified (3) Depression: Status: Acute Code(s): F32.A - Depression, unspecified (4) Hyperlipidemia: Status: Chronic Code(s): E78.5 - Hyperlipidemia, unspecified (5) Stroke: Status: Acute Code(s): I63.9 - Cerebral infarction, unspecified (6) GERD (gastroesophageal reflux disease): Status: Acute Code(s): K21.9 - Gastro-esophageal reflux disease without esophagitis (7) Right femoral fracture: Status: Acute Code(s): S72.91XA - Unspecified fracture of right femur, initial encounter for closed fracture Plan 83 year old female with below past medical history hospitalized for right femur fracture, underwent ORIF right femur 08/22/[address] Luu, admitted to [facility], here for rehabilitation, strengthening, prior to discharge home alone. * Debility - PT/OT. * Pain - Naproxen 250mg bid prn. * Bowel - Miralax 17gm daily, senna/colace 1 tablet bid, Magnesium citrate 300ml po daily prn. * Adult immunization - Administer pneumonia vaccine, covid vaccine, flu vaccine as appropriate. * DVT prophylaxis - Hold, on dual antiplatelet therapy, postoperative anemia requiring transfusion. * Vitamin C deficiency - Vitamin C 500mg bid. * Biotin deficiency - Biotin 1 cap daily. * Stroke - Aspirin 81mg daily, Plavix 75mg daily. * Vitamin D deficiency - Vitamin D3 25mcg bid. * Hyperlipidemia - Atorvastatin 10mg qhs. * Depression - Duloxetine 20mg daily, stable chronic exterminator helper termite use, GDR not recommended. * Allergic rhinitis - Fluticasone 0.05% 1 spray nasal daily prn. * Muscle spasm - Robaxin 500mg tid prn. * Nonobstructive coronary artery disease - NTG 0.4mg sl q5m prn. * GERD - Pantoprazole 40mg q12, Carafate 1gm qachs. * Vitamin E deficiency - Vitamin E 400IU bid. * Insomnia - Benadryl 50mg qhs, per resident request. * Hypomagnesemia - Magnesium chloride 128mg qhs. * Postoperative anemia - Hemoglobin 7.4, transfused 2 units PRBC, post transfusion Hemoglobin 9.2. Medications at Discharge Home Medications cholecalciferol (vitamin D3) 25 mcg (1,000 unit) tablet 1,000 unit PO BID Supplement 10/19/15 clopidogrel 75 mg tablet 75 mg PO DAILY antiplatelet #30 tabs 05/20/17 ascorbate calcium (vitamin C) 500 mg tablet 500 mg PO BID Supplement 03/21/20 aspirin 81 mg tablet,delayed release (Adult Aspirin Regimen) 81 mg PO DAILY Heart Health 03/21/20 nitroglycerin 0.4 mg sublingual tablet 0.4 mg sublingual Q5-15M PRN chest pain 03/21/20 vitamin E (dl, acetate) 180 mg (400 unit) capsule 400 unit PO DAILY Supplement 03/21/20 pantoprazole 40 mg tablet,delayed release 40 mg PO Q12H GERD 10/23/20 duloxetine 20 mg capsule,delayed release 20 mg PO DAILY Mood 08/28/23 fluticasone propionate 50 mcg/actuation nasal spray,suspension (24 Hour Allergy Relief) 1 spray intranasal DAILY PRN allergy symptoms 08/28/23 methocarbamol 500 mg tablet 500 mg PO TID PRN Muscle Spasms 08/28/23 polyethylene glycol 3350 17 gram oral powder packet 17 g PO DAILY Constipation 08/28/23 rosuvastatin 5 mg tablet (Crestor) 5 mg PO DAILY Cholesterol 08/28/23 senna-docusate sodium tablet 1 tab PO DAILY Constipation 08/28/23 acetaminophen 500 mg tablet 1,000 mg (2 x 500 mg) PO Q6H PRN PRN Pain Score 1- 10#0 tabs 09/18/23 naproxen 250 mg tablet 250 mg PO 4X/DAY PRN PRN Pain Score 1-10 #0 tabs 09/18/23 potassium chloride 20 mEq tablet,extended release(part/cryst) 20 meq PO BIDCM 30days #60 tabs 09/18/23 Hospital Course Operations - (ORIF right femur.) Procedures None Summary of Care Provided Minutes Spent on Discharge: 35 Hospital Course: 83 year old female with below past medical history hospitalized for right femur fracture, underwent ORIF right femur 08/22/[address] Luu, admitted to [facility], here for rehabilitation, strengthening, prior to discharge home alone. [place] home 09/25, [facility] PT/OT, FWW. FWW: Patient is unsafe to use a cane and requires a walker for ambulation in the home and the community. Physical Exam Const alert General Appearance: cooperative HEENT normocephalic Eyes PERRL and EOMs intact bilaterally Neck supple, no JVD and no carotid bruits Resp normal respiratory effort, normal air movement and clear to auscultation bilaterally Cardio regular rate and regular rhythm GI normal to inspection, nondistended, normoactive bowel sounds, non-tender and non-distended Extremity normal capillary refill General Extremity: Negative for edema Skin no rashes or lesions noted General Skin Exam: no breakdown Psych affect normal Appearance: appropriate Weight / BMI Weight Weight: 57.516 kg Body Mass Index (BMI) 22.4 ABG / Lab / Microbiology Data 09/12/23 08:15 09/12/23 08:15 Microbiology: Microbiology 09/17/23 06:48 Nasal Secretion SARS-CoV-2 Antigen (Rapid) - Final 09/14/23 05:55 Nasal Secretion SARS-CoV-2 Antigen (Rapid) - Final 09/10/23 05:44 Nasal Secretion SARS-CoV-2 Antigen (Rapid) - Final 09/06/23 07:00 Stool Stool Occult Blood (CRIS) - Final D/C Instructions Discharge Diet: No restrictions Discharge Activity: Return to Normal Activity, May Shower and Use Walker Weight Bearing Status: Weight bearing as tolerated Call your doctor if you observe: Fever of 101 or Higher, Inability to urinate, Inability to have a bowel movement, Shortness of breath, Dizziness, Fainting spells, Swelling in the ankles, Chest pain and Uncontrolled pain Additional Instructions: [facility] 09/25, [facility] PT/OT, FWW Please Follow Up With: Crissy Luu MD When: As scheduled. Meaningful Use Info Meaningful Use Diagnoses (Choose all that apply): None applicable Discharge Plan Admission Admit Date/Time: 08/28/23 15:45 Primary Reason for Your Visit: Debility. Attending Provider: Giovanni Martinez Chi Primary Care Provider: Jonny Torres Instructions Additional Instructions / Restrictions: [facility] 09/25, [facility] PT/OT, FWW Discharge Orders/Prescriptions Prescriptions: New naproxen 250 mg Tablet 250 mg PO 4X/DAY PRN PRN (Reason: Pain Score 1-10) Qty: 0 0RF acetaminophen 500 mg Tablet 1,000 mg PO Q6H PRN PRN (Reason: Pain Score 1-10) Qty: 0 0RF potassium chloride 20 mEq Tablet,Er Particles/Crystals 20 meq PO BIDCM 30 Days Qty: 60 0RF Continued aspirin [Adult Aspirin Regimen] 81 mg tablet,delayed release (DR/EC) 81 mg PO DAILY nitroglycerin 0.4 mg tablet, sublingual 0.4 mg SUBLINGUAL Q5-15M PRN (Reason: chest pain) Rx Instructions: do not exceed 3 doses per episode vitamin E (dl, acetate) 400 unit capsule 400 unit PO DAILY ascorbate calcium (vitamin C) 500 mg tablet 500 mg PO BID pantoprazole 40 mg tablet,delayed release (DR/EC) 40 mg PO Q12H cholecalciferol (vitamin D3) 1,000 UNIT tablet 1,000 unit PO BID Patient Comments: Vit-D replacement clopidogrel 75 MG tablet 75 mg PO DAILY Qty: 30 0RF rosuvastatin [Crestor] 5 mg tablet 5 mg PO DAILY duloxetine 20 mg capsule,delayed release(DR/EC) 20 mg PO DAILY fluticasone propionate [24 Hour Allergy Relief] 50 mcg/actuation spray,suspension 1 spray intranasal DAILY PRN (Reason: allergy symptoms) Rx Instructions: administer into each nostril methocarbamol 500 mg tablet 500 mg PO TID PRN (Reason: Muscle Spasms ) polyethylene glycol 3350 17 gram powder in packet 17 g PO DAILY senna-docusate sodium Tablet 1 tab PO DAILY Discontinued polypodium leucotomos extract 240 mg capsule 240 mg capsule PO .M/W/ prenat.vits,luis,ozp-oqkw-zlhee Tablet 1 tab PO DAILY chlorpheniramine maleate [ChlorTabs] 4 mg tablet 4 mg PO Q8H PRN (Reason: Allergies) Rx Instructions: do not exceed 2 doses per 24 hrs 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) 30 mg PO ONCE venlafaxine 75 MG tablet 75 mg PO DAILY Patient Comments: treat depression vit C,U-Rn-ghhqh-lutein-zeaxan 1 EACH capsule 1 ea PO DAILY Patient Comments: for eye health meclizine 25 MG tablet 50 mg PO DAILY PRN PRN (Reason: Dizziness) Patient Comments: Antihystamine acetaminophen 325 MG tablet 650 mg PO Q4H PRN PRN (Reason: Mild-Mod Pain (-12/17)) Qty: 0 0RF Patient Comments: PAIN atorvastatin 40 MG tablet 40 mg PO DAILY Qty: 30 0RF venlafaxine 150 mg capsule,extended release 24hr PO oxycodone-acetaminophen [oxycodone-acetaminophen] 1 TABLET tablet 1 tab PO Q6H PRN PRN (Reason: pain) 5 Days Qty: 20 0RF ascorbic acid (vitamin C) 500 mg tablet 500 mg PO BID biotin 1 cap PO DAILY scopolamine base 1 mg over 3 days patch 3 day 1 patch transdermal Q3D PRN (Reason: As needed for Travel) sucralfate [Carafate] 1 gram tablet 1 g PO Q6H Referrals / Follow Up: Jonny Torres MD [Primary Care Provider] - Crissy Luu MD [Non-Staff] - 10/09/23 3:00 pm Disposition Disposition (needs filled in before D/C Order can be placed): Home Health Service 09/18/23 1418 <Electronically signed by Giovanni Martinez MD> Cosigner Signature (if applicable): CC: Dr. Jonny Torres MD; Dr. Giovanni Martinez MD~ Signed ADDENDUM by Dr. Giovanni Martinez MD on 09/18/23 at 1420 Addendum BSC - Patient is unable to access bathroom safely and requires BSC. 09/18/23 1420<Electronically signed by Giovanni Martinez MD> Cosigner Signature (if applicable): cc: Dr. Jonny Torres MD; Dr. Giovanni Martinez MD ~* Signed [facility] Work Phone: [phone]) 565-216002-03-2024 History of Present illness Narrative* Crissy Luu MD - 09/12/2023 10:17 AM EST Radha Baldwin comes today now 3 weeks' status post open reduction/internal fixation of right periprosthetic femur fracture with family. Wound is clean, dry, intact. No erythema. No drainage. No lymphangitis. No cellulitis. Leg lengths were equal. Ambulating with her, at this time, she stands without assistance. X-RAYS X-rays of the right femur reveal no change in alignment of the hardware. IMPRESSION 3 weeks status post open reduction/internal fixation, right periprosthetic femur fracture. PLAN At this point in time, she will weightbear as tolerated. Continue physical therapy, local wound care. Current DVT prophylaxis, and I will see her in a month for x-rays. I did a narcotic review. She has no listed narcotics. She currently is on Plavix and baby aspirin. documented in this [id number] History and physical note Author Giovanni Martinez [facility] September 09, 2023 5:25pm Note Date/Time August 28, 2023 5 :05pm [facility] Medical Records Department [address] [place] [id number] History & Physical Exam 08/28/23 6923 MR#: [id number] Acct: [id number] Name: RADHA BALDWIN Rep #:[id number] : 1940 83 From: Giovanni Martinez MD PCP: Dr. Jonny Torres MD Status:AD M IN Location: [facility] TCU22-1 HPI - General General Date of Admission: 08/28/23 Date of Service: 08/31/23 Chief Complaint: Here for rehabilitation. HPI Narrative RADHA BALDWIN, is a 83 Female who presents with followin08/21/2023 [facility]. Ground level fall, tripped over rug, landed right leg. Right leg pain. X-ray showed right femur fracture. 08/22/2023 Dr. Luu performed ORIF right femur. Tolerating diet, bowel regimen. Pain control, PT/OT, WBAT, pulmonary hygiene. Postoperative anemia, transfused 1 unit PRBC. Aspirin, Plavix resumed. 08/27/2023 Right leg pain, tolerable with pain medications. Mildly anxious. 08/28/2023 Admit to TCU with debility, here for rehabilitation, strengthening, prior to discharge home alone. [facility] Medical History (Updated 08/31/23 @ 07:[address] Giovanni Martinez MD) GERD (gastroesophageal reflux disease) History of CVA (cerebrovascular accident) (06/19/17) Hyperlipidemia IBS (irritable bowel syndrome) Nonobstructive atherosclerosis of coronary artery Osteoarthritis Osteoporosis Home Medications cholecalciferol (vitamin D3) 25 mcg (1,000 unit) tablet 1,000 unit PO BID Supplement 10/19/15 [History Last Taken Unknown] meclizine 25 mg tablet 50 mg PO DAILY PRN PRN Dizziness 10/19/15 [History Last Taken 05/19/17] venlafaxine 75 mg tablet 75 mg PO DAILY 10/19/15 [History Last Taken 10/23/15] vit C 250 mg-vit E 90 mg-zinc 40 mg-copper 1 id-cafdpl-zvdgln capsule 1 ea PO DAILY 10/19/15 [History Last Taken 10/24/15] acetaminophen 325 mg tablet 650 mg (2 x 325 mg) PO Q4H PRN PRN Mild-Mod Pain (1- 12/17) #0 tabs 11/01/15 [Rx Last Taken Unknown] atorvastatin 40 mg tablet 40 mg PO DAILY #30 tabs 05/20/17 [Rx Last Taken Unknown] clopidogrel 75 mg tablet 75 mg PO DAILY antiplatelet #30 tabs 05/20/17 [Rx Last Taken 08/27/23] ascorbate calcium (vitamin C) 500 mg tablet 500 mg PO BID Supplement 03/21/20 [History Last Taken Unknown] aspirin 81 mg tablet,delayed release (Adult Aspirin Regimen) 81 mg PO DAILY Heart Health 03/21/20 [History Last Taken 03/26/20] chlorpheniramine maleate 4 mg tablet (ChlorTabs) 4 mg PO Q8H PRN Allergies 03/21/20 [History Last Taken Unknown] nitroglycerin 0.4 mg sublingual tablet 0.4 mg sublingual Q5-15M PRN chest pain 03/21/20 [History Last Taken Unknown] polypodium leucotomos extract 240 mg capsule ([employer]oc[employer]) mg PO .M/W/F 03/21/20 [History Last Taken Unknown] prenat.vits,luis,lyq-nzaf-qhgvr 1 tab PO DAILY 03/21/20 [History Last Taken Unknown] 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) 30 mg PO ONCE 03/21/20 [History Last Taken Unknown] vitamin E (dl, acetate) 180 mg (400 unit) capsule 400 unit PO DAILY Supplement 03/21/20 [History Last Taken 08/28/23] pantoprazole 40 mg tablet,delayed release 40 mg PO Q12H GERD 10/23/20 [History Last Taken 08/28/23 10:00] oxycodone-acetaminophen 5 mg-325 mg tablet 1 tab PO Q6H PRN PRN pain 5 days #20 TABLETS 06/16/21 [Rx Last Taken Unknown] venlafaxine 150 mg capsule,extended release 24 hr mg PO 06/16/21 [History Last Taken Unknown] ascorbic acid (vitamin C) 500 mg tablet 500 mg PO BID Supplement 08/28/23 [History Last Taken 08/28/23] biotin 1 cap PO DAILY Supplement 08/28/23 [History Last Taken Unknown] duloxetine 20 mg capsule,delayed release 20 mg PO DAILY Mood 08/28/23 [History Last Taken 08/28/23] fluticasone propionate 50 mcg/actuation nasal spray,suspension (24 Hour Allergy Relief) 1 spray intranasal DAILY PRN allergy symptoms 08/28/23 [History Last Taken Unknown] methocarbamol 500 mg tablet 500 mg PO TID PRN Muscle Spasms 08/28/23 [History Last Taken 08/25/23] polyethylene glycol 3350 17 gram oral powder packet 17 g PO DAILY Constipation 08/28/23 [History Last Taken Unknown] rosuvastatin 5 mg tablet (Crestor) 5 mg PO DAILY Cholesterol 08/28/23 [History Last Taken Unknown] scopolamine base 1 mg over 3 days transdermal patch 1 patch transdermal Q3D PRN As needed for Travel 08/28/23 [History Last Taken Unknown] senna-docusate sodium tablet 1 tab PO DAILY Constipation 08/28/23 [History Last Taken Unknown] sucralfate 1 gram tablet (Carafate) 1 g PO Q6H GERD 08/28/23 [History Last Taken Unknown] Allergy/AdvReac Type Severity Reaction Status Date / Time fentanyl Allergy Itching Verified 06/16/21 09:08 codeine AdvReac Nausea/Vom/ Verified 06/16/21 09:08 Diarrhea Penicillins AdvReac Unknown Verified 06/16/21 09:08 Family History Other Heart disease Surgical History History of left heart catheterization (03/26/20) History of total hip arthroplasty Social History (Updated 08/28/23 @ 17:[address] Giovanni Martinez MD) household members: none Smoking Status: Former smoker alcohol intake: never substance use type: does not use ROS Constitutional Constitutional: Denies chills, fever(s) or weight gain ENT HEENT: Denies headache(s), nasal congestion or nasal discharge Cardiovascular Cardiovascular: Denies chest pain or palpitations Respiratory/Chest Respiratory/Chest: Denies cough, excessive phlegm production or shortness of breath with exertion Gastrointestinal Gastrointestinal: Denies abdominal pain, nausea or vomiting Genitourinary Genitourinary: Denies dysuria Musculoskeletal Musculoskeletal: Denies joint pain or joint swelling Integumentary Integumentary: Denies rash or wounds Neurologic Neurologic: Denies focal weakness, numbness or tingling Psychiatric Psychiatric: Denies anxiety, auditory hallucinations, depression, homicidal ideation or suicidal ideation Physical Exam Const alert General Appearance: cooperative HEENT normocephalic Eyes PERRL and EOMs intact bilaterally Neck supple, no JVD and no carotid bruits Resp normal respiratory effort, normal air movement and clear to auscultation bilaterally Cardio regular rate and regular rhythm GI normal to inspection, nondistended, normoactive bowel sounds, non-tender and non-distended Extremity normal capillary refill General Extremity: Negative for edema Skin no rashes or lesions noted General Skin Exam: no breakdown Psych affect normal Appearance: appropriate Results Lab / Micro Data 08/30/23 17:08 08/29/23 07:22 Assessment & Plan Assessment/Plan (1) Debility: (2) Vitamin D deficiency: (3) Depression: (4) Hyperlipidemia: (5) Stroke: (6) GERD (gastroesophageal reflux disease): (7) Right femoral fracture: PLAN: Plan 83 year old female with below past medical history hospitalized for right femur fracture, underwent ORIF right femur 08/22/[address] Luu, admitted to [facility], here for rehabilitation, strengthening, prior to discharge home alone. * Debility - PT/OT. * Pain - Naproxen 250mg bid prn. * Bowel - Miralax 17gm daily, senna/colace 1 tablet bid, Magnesium citrate 300ml po daily prn. * Adult immunization - Administer pneumonia vaccine, covid vaccine, flu vaccine as appropriate. * DVT prophylaxis - Hold, on dual antiplatelet therapy, postoperative anemia requiring transfusion. * Vitamin C deficiency - Vitamin C 500mg bid. * Biotin deficiency - Biotin 1 cap daily. * Stroke - Aspirin 81mg daily, Plavix 75mg daily. * Vitamin D deficiency - Vitamin D3 25mcg bid. * Hyperlipidemia - Atorvastatin 10mg qhs. * Depression - Duloxetine 20mg daily, stable chronic alf use, GDR not recommended. * Allergic rhinitis - Fluticasone 0.05% 1 spray nasal daily prn. * Muscle spasm - Robaxin 500mg tid prn. * Nonobstructive coronary artery disease - NTG 0.4mg sl q5m prn. * GERD - Pantoprazole 40mg q12, Carafate 1gm qachs. * Vitamin E deficiency - Vitamin E 400IU bid. * Insomnia - Benadryl 50mg qhs, per resident request. * Hypomagnesemia - Magnesium chloride 128mg qhs. * Postoperative anemia - Hemoglobin 7.4, transfused 2 units PRBC, post transfusion Hemoglobin 9.2. 08/31/23 0742 <Electronically signed by Giovanni Martinez MD> Cosigner Signature (if applicable): CC: Dr. Jonny Torres MD; Dr. Giovanni Martinez MD~ Signed ADDENDUM by Dr. Giovanni Martinez MD on 09/09/23 at 1725 Addendum Pain - Tylenol 1000mg q6 prn pain (1-10), Naproxen 250mg 4x/day prn pain (1-10),Tramadol 50mg q6 prn pain (6-10), later discontinued. 09/09/23 1725<Electronically signed by Giovanni Martinez MD> Cosigner Signature (if applicable): cc: Dr. Jonny Torres MD; Dr. Giovanni Martinez MD ~* Signed [facility] Work Phone: 1(255) 225-549801-25-2024 Progress note Author Giovanni Martinez [facility] September 03, 2023 6:02pm Note Date/Time September 03, 2023 1 :05pm [facility] Medical Records Department [address] [place] [address] Progress Note - Pharmacy 09/03/23 1303 MR#: [id number] Acct: [id number] Name: RADHA BALDWIN COURTNEY Rep #:[id number] : 1940 83 From: Kim Ely PCP: Dr. Jonny Torres MD Status:AD M IN Location: TCU [facility]- Documented by User: Kim Ely 09/03/23 16:01 TCU RX Drug Regimen Review Subjective/Objective Subjective/Objective: Subjective: TCU Admission. 83 YOF presented to outside ED with a fall. Hospitalized for right femur fracture, underwent ORIF right femur 08/22/[address] Luu. Admitted to TCU with debility for strengthening and rehabilitation. Objective: Allergies fentanyl Allergy (Verified 06/16/21 09:08) Itching codeine Adverse Reaction (Verified 06/16/21 09:08) Nausea/Vom/Diarrhea Penicillins Adverse Reaction (Verified 06/16/21 09:08) Unknown per pt was told since child very sensitive to pcn Current Medications Generic Name Dose Route Start Last Admin Trade Name Rockq PRN Reason Stop Dose Admin Ascorbic Acid 500 mg 08/28/23 22:00 09/03/23 08:25 Ascorbic Acid 500 Mg Tablet PO 500 mg BID SJ Administration Aspirin 81 mg 08/29/23 08:00 09/03/23 08:24 Aspirin E.C. 81 Mg Tablet PO 81 mg DAILYCM SJ Administration Atorvastatin Calcium 10 mg 08/28/23 22:00 09/02/23 21:50 Atorvastatin Calcium 10 Mg Tablet PO 10 mg QHS SJ Administration Cholecalciferol 25 mcg 08/28/23 22:00 09/03/23 08:25 Cholecalciferol (Vit D3) 25 Mcg Tablet (1,000 Units) PO 25 mcg BID SJ Administration Clopidogrel Bisulfate 75 mg 08/29/23 10:00 09/03/23 08:24 Clopidogrel Bisulfate 75 Mg Tablet PO 75 mg DAILY SJ Administration Diphenhydramine HCl 50 mg 08/30/23 22:00 09/02/23 21:49 Diphenhydramine 25 Mg Capsule PO 50 mg QHS SJ Administration Duloxetine HCl 20 mg 08/29/23 10:00 09/03/23 08:24 Duloxetine Hcl 20 Mg Capsule PO 20 mg DAILY SJ Administration Fluticasone Propionate 1 spray 08/28/23 16:34 Fluticasone 0.05% 1 [place] Nasal.Sry NASAL DAILY PRN allergy symptoms Magnesium Chloride 128 mg 08/30/23 22:00 09/02/23 21:50 Magnesium Chloride 64 Mg Delay Rel.Tablet PO 128 mg QHS SJ Administration Magnesium Citrate 300 ml 08/28/23 17:13 Magnesium Citrate 300 Ml PO DAILY PRN Constipation Methocarbamol 500 mg 08/28/23 16:34 09/03/23 12:09 Methocarbamol 500 Mg Tablet PO 500 mg TID PRN Administration Muscle Spasms Naproxen 250 mg 09/01/23 17:05 09/03/23 12:10 Naproxen 250 Mg Tablet PO 250 mg 4X/DAY PRN PRN Administration Pain Score 1-10 Nitroglycerin 0.4 mg 08/28/23 17:05 Nitroglycerin (Inpatient Use) 0.4 Mg Tab.Subl SL Q5M PRN CARDIAC/CHEST PAIN Pantoprazole Sodium 40 mg 08/28/23 22:00 09/03/23 08:25 Pantoprazole Sodium 40 Mg Tablet PO 40 mg BID SJ Administration Polyethylene Glycol 17 gm 08/29/23 11:00 Polyethylene Glycol 3350 17 Gm Packet PO DAILY PRN Constipation Senna/Docusate Sodium 2 tablet 08/29/23 22:00 09/03/23 08:25 Senna/Docusate Sodium 1 Tablet PO Not Given BID SJ Sodium Chloride 10 - 40 ml 08/29/23 14:45 0.9% Saline Lock 10 Ml Syringe IV UD PRN SALINE FLUSH Tuberculin PPD 0.1 ml 09/05/23 10:00 Tuberculin,Purif.Prot.Deriv. 50 Tu/Ml Vial ID 09/05/23 10:01 X1 ONE Vitamin E 400 units 08/28/23 22:00 09/03/23 08:24 Vitamin E 400 Units Capsule PO 400 units BIDCM SJ Administration Problem List (Updated 08/31/23 @ 07:[address] Giovanni Martinez MD) Right femoral fracture (Acute) GERD (gastroesophageal reflux disease) (Acute) Stroke (Acute) Depression (Acute) Vitamin D deficiency (Acute) Debility (Acute) Hyperlipidemia (Chronic) Vital Signs Temp Pulse Resp BP Pulse Ox O2 Del Method 98.4 F 72 16 124/63 H 99 Room Air 09/03/23 10:09/03/23 10:09/03/23 10:09/03/23 10:09/03/23 10:09/03/23 10:29 Oxygen Delivery Method Room Air Weight: 60.781 kg Body Mass Index (BMI) 23.7 Sodium 140 mmol/L (136-145) 08/29/23 07:22 Potassium 3.5 mmol/L (3.5-5.1) 08/29/23 07:22 Chloride 110 mmol/L (98-107) H 08/29/23 07:22 Carbon Dioxide 26.0 mmol/L (21.0-32.0) 08/29/23 07:22 Anion Gap 4 (5-15) L 08/29/23 07:22 BUN 17 mg/dL (7-18) 08/29/23 07:22 Creatinine 0.44 mg/dL (0.55-1.02) L 08/29/23 07:22 Est GFR (MDRD) Af Amer 179 mL/min (>60) 08/29/23 07:22 Est GFR (MDRD) Non-Af 148 mL/min (>60) 08/29/23 07:22 BUN/Creatinine Ratio 39.1 RATIO (10-20) H 08/29/23 07:22 Glucose 125 mg/dL (74-106) H 08/29/23 07:22 Assessment/Plan: 1. Pain: naproxen 250mg PO 4x/day PRN pain 1-10. Resident has had 9 total doses of naproxen for various pain scores in thigh/right leg and foot. Please continueto monitor for increased pain, S/S of bleeding, renal function and PRN usage. 2. Bowel: Miralax 17gm PO daily PRN constipation, senna/docusate 1T PO BID and magnesium citrate 300mL PO daily PRN constipation. No PRN doses have been given.Please consider changing senna/docusate to PRN constipation as the resident has refused the last 4/5 doses. Thanks. Please continue to monitor for constipation and PRN usage. Last documented bowel movement 09/01. 3. Stroke: aspirin 81mg PO DAILYCM and clopidogrel 75mg PO daily. Please continue to monitor for S/S of bleeding and hemoglobin (last 9.4g/dL). 4. Nonobstructive CAD: nitroglycerin 0.4mg SL Q5M PRN chest pain. Resident has not used any doses so far. Please continue to monitor for chest pain and PRN usage. 5. Hyperlipidemia: atorvastatin 10mg PO QHS. Please consider ordering a lipid panel and LFTs as resident does not have any history of these in the chart. Thanks. Please continue to monitor for muscle pain. 6. GERD: pantoprazole 40gm PO BID. Please continue to monitor for S/S of GERD, diarrhea (BEERS medication) and magnesium. 7. Muscle spasm: methocarbamol 500mg TID PRN muscle spasms. Resident has received 2 doses of methocarbamol. Please continue to monitor for S/S of muscle spasms, anticholinergic side effects (BEERs medication) and PRN usage. 8. Allergic rhinitis: fluticasone nasal spray 0.05% 1 spray nasal daily PRN allergies. No PRN doses have been given. Please continue to monitor for S/S of allergies and PRN usage. 9. Hypomagnesemia: magnesium chloride 128mg PO QHS. Please consider ordering a magnesium level as the last level is from 2017. Thanks. 10. Insomnia: diphenhydramine 50mg PO QHS. Please continue to monitor for anticholinergic side effects (BEERs medication), dementia/delirium (BEERs medication). 11. Vitamin D/C/E deficiencies: ascorbic acid 500mg PO BID, cholecalciferol 25mcg PO BID and vitamin E 400IU PO BID. Please consider ordering a vitamin D level as the resident does not have one in the chart. Thanks. Assessment/Plan for indications treated with psychotropic medications: 1. Depression: duloxetine 20mg PO daily. Please see physician note regarding GDR. Please continue to monitor for S/S of suicidal ideation (black box warning), weight gain, sodium (last 140mmol/L) and falls/fractures (BEERs medication). Medical chart and medication regimen reviewed. The following medication irregularities or issues were identified: 1. Senna/docusate 1T PO BID. Please consider changing senna/docusate to PRN constipation as the resident has refused the last 4/5 doses. Thanks. 2. Atorvastatin 10mg PO QHS. Please consider ordering a lipid panel and LFTs as resident does not have any history of these in the chart. Thanks. 3. Magnesium chloride 128mg PO QHS. Please consider ordering a magnesium level as the last level is from 2017. Thanks. 4. Cholecalciferol 25mcg PO BID. Please consider ordering a vitamin D level as the resident does not have one in the chart. Thanks. Date Date of Note:: 09/03/23 Documented by User: Dr. Giovanni Martinez MD 09/03/23 18:02 TCU RX Drug Regimen Review Provider Comments Provider responsibility Provider Comments to Recommendations by Pharmacy: Agree 09/03/23 1601 <Electronically signed by Kim Ely> Kim Ely Cosigner Signature (if applicable): 09/03/23 1802 <Electronically signed by Giovanni Martinez MD> CC: ~ Signed [facility] Work Phone: [phone]) 248-988901-19-2024 Note* Quick Note - Erma Cardenas LPN - 08/28/2023 2:22 PM EST This nurse called and gave report to receiving nurse. All questions answered. [id number] Miscellaneous Notes* Quick Note - Erma Cardenas LPN - 08/28/2023 2:22 PM EST This nurse called and gave report to receiving nurse. All questions answered. * Quick Note - Erma Cardenas LPN - 08/28/2023 1:13 PM EST Reviewed discharge summary with pt. Daughter present. Pt wants to eat lunch the the daughter will be taking her to the facility in [place]. All questions answered, denies any further needs at this time * Quick Note - Erma Cardenas LPN - 08/28/2023 1:00 PM EST Dressing changed as ordered and pt tolerated well * Plan of Care - Erma Cardenas LPN - 08/28/2023 12:14 PM EST Problem: Actual or potential alteration in health [...] of comfort function goal Outcome: Partially Met * Plan of Care - Annie Brush RN - 08/28/2023 1:34 AM EST Problem: Actual or potential alteration in health [...] Goal: Absence of falls Outcome: Partially Met * [facility] - Raymond Gannon PTA - 08/27/2023 3:45 PM EST PHYSICAL THERAPY VISIT VARIANCE NOTE Attempted to see patient at this time, but unable secondary to: Patient Unavailable (pt being seen by LEAD DESIGNER). Will follow up as appropriate. * Plan of Care - Carolina Correa RN - 08/27/2023 10:59 AM EST Problem: Actual or potential alteration in health Goal: Absence of healthcare acquired conditions Outcome: Partially Met Problem: Actual or potential alteration in health Goal: Knowledge of Interdisciplinary Plan of Care Outcome: Partially Met Problem: Pain Goal: Manage acute pain Outcome: Partially Met Problem: Pain Goal: Manage acute pain Outcome: Partially Met * Plan of Care - Annie Brush RN - 08/26/2023 10:39 PM EST Problem: Actual or potential alteration in health [...] Goal: Absence of falls Outcome: Partially Met * Plan of Care - Mirella Burton LPN - 08/24/2023 10:47 PM EST Problem: Actual or potential alteration in health [...] Goal: Absence of falls Outcome: Partially Met * Plan of Care - Tye Herrera RN - 08/24/2023 5:27 AM EST Problem: Actual or potential alteration in health [...] Goal: Absence of falls Outcome: Partially Met * Assessment & Plan Note - Rosetta Carver, ASSOCIATE PROPERTY MANAGER - 08/23/2023 9:07 PM EST Associated Problem(s): Acute blood loss anemia S/p 1 unit prbc Hgb ___ (8.2) * Plan of Care - Tye Herrera RN - 08/23/2023 6:10 AM EST Problem: Actual or potential alteration in health [...] Goal: Absence of falls Outcome: Partially Met * Tertiary Note - Emilia Tatum CNP - 08/22/2023 1:01 PM EST [facility] DAILY PROGRESS NOTE MECHAN ISM: Fall DIAGNOSIS / REASON FOR CONSULT: Closed [...] OPEN REDUCTION INTERNAL FIXATION FEMUR RIGHT Yasmine TODAY' S ASSESSMENT AND PLAN OF CARE: As above DISPOSITION - TBD CHIEF COMPLAINT/ HPI / PFSHx / EVENTS [...] CREATININE 0.72 08/22/2023 No results found for: "ALT", "AST", "GGT", "ALKPHOS", "BILITOT" DAILY CHECKLIST: *Need for Restraints: no *Need [...] *Home Medications Reconciled: yes *Code Status: DNR-CCA * Brief Op Note - Crissy Luu MD - 08/22/2023 11:15 AM EST Brief Post Operative Note Patient Name: Radha Baldwin : 1940 (83 y.o.) Date of Service: 08/22/2023 CSN: [id number] Procedure(s): OPEN REDUCTION INTERNAL FIXATION FEMUR RIGHT Pre-Operative Diagnoses: * Right femur fracture Post-Operative Diagnoses: * Same as Pre-Op Diagnosis Surgeon(s) and Role: * Crissy Luu MD - Primary Anesthesiologist: Javi Hsieh MD TAKE AWAY MAN: Patricia Mathias CRNA Cutter Operator Helper: Frieda Padgett RN Outsole Skiver: Montserrat Taylor, TECHNOLOGIST Scrub Person: Lorena Xiong RN Medical Equipment Repair Technician: Amberly Zendejas Float: Julienne Bae RN; Kathleen Klein RN Operative findings: see op note Intra and immediate post-operative complications: none Type of anesthesia used: General Estimated blood loss: 200 mL Estimated urine output: 325 mL Specimen(s): * No specimens in log * Implant(s): Implant Name Type Inv. Item Serial No. Core Shaper Lot No. [id number] No. Used Action PLATE 4.5 X 206MM 11HL BROAD LCP - [id number] PLATE 4.5 X 206MM 11HL BROAD LCP SYNTHES LT LOAD #[id number] Right 1 Implanted SCREW 4.5 X 32MM CORTEX SELF-TAP - [id number] SCREW 4.5 X 32MM CORTEX SELF-TAP SYNTHES LT LOAD #[id number] Right 5 Implanted SCREW 4.5 X 34MM CORTEX SELF-TAP - [id number] SCREW 4.5 X 34MM CORTEX SELF-TAP SYNTHES LT LOAD #[id number] Right 3 Implanted SCREW 5 X 14MM LOCKING SELF-TAP T25 STRDRV REC - [id number] SCREW 5 X 14MM LOCKING SELF-TAP T25 STRDRV REC SYNTHES LT LOAD #[id number] Right 2 Implanted SCREW 5 X 10MM PERIPROSTHETIC LOCKING S-T STRDRV STERL - [id number] SCREW 5 X 10MM PERIPROSTHETIC LOCKING S-T STRDRV STERL SYNTHES LT [id number] Right 1 Implanted CABLE 1.7 X 750MM W/CRIMP STERL - [id number] CABLE 1.7 X 750MM W/CRIMP STERL SYNTHES LT [id number] Right 3 Implanted Drain(s): * No LDAs found * Wound(s): Wound 08/22/23 1 Surgical Wound Trochanter Right;Lateral;Proximal (Active) Wound Closure Sutures;Rupesh;Surgical Adhesive 08/21/23 0002 Crissy Luu MD 08/22/2023 11:15 AM * Op Note - Crissy Luu MD - 08/22/2023 10:03 AM EST ATTENDING PHYSICIAN PATTI BECK MD PRIMARY CARE PHYSICIAN PHYSICIAN NO ADMITTING PHYSICIAN PATTI BECK MD CONSULTING PHYSICIAN PATTI BECK MD PREOPERATIVE DIAGNOSIS Right periprosthetic femur [...] the actual femoral stem. Acetabular component appeared amanda intact. Femoral appeared to be well-seated, and [...] ahead and proceeded forward with making our skinincision laterally, split the iliotibial band. We then elevated the vastus lateralis off the femur.Femur was anatomically reduced, held with an 11-hole Synthes locking plate. We were able to get 5 screws distal to the fracture, 2 screws distal to the tip of the stem in the proximal portion of the fracture with an interfragmentary screw. We were able to do cable employment educational coord proximal to that. Once I felt that [...] extubated, and taken to PACU without intraoperative c omplication. D 08/22/2023 11:20 [id number] T 08/22/2023 12:12 MCB/MODL * [facility] - Melva Husain, OT - 08/22/2023 9:50 AM EST OCCUPATIONAL THERAPY VISIT VARIANCE NOTE Attempted to see patient at this time, but unable secondary to: Awaiting Medical Clearance (comment) (Patient in OR at this time. Will follow-up post-operatively.). Will follow up as appropriate. * [facility] - Kylah Pride, PT - 08/22/2023 8:08 AM EST PHYSICAL THERAPY VISIT VARIANCE NOTE Attempted to see patient at this time, but unable secondary to: Awaiting Medical Clearance (comment). Closed traumatic displaced fracture of shaft of right femur with routine healing Assessment & Plan Reduced and splinted. - pain control. - OR in Am with yasmine. Will follow up as appropriate. * Quick Note - Mirella Burton LPN - 08/22/2023 6:38 AM EST Patient with emesis at this time * Quick Note - Mirella Burton LPN - 08/22/2023 6:09 AM EST Spoke with trauma alfredo as patient has nausea and would like regalan rather than zofran order given and med given * Plan of Care - Mirella Burton LPN - 08/21/2023 10:05 PM EST Problem: Actual or potential alteration in health [...] Goal: Absence of falls Outcome: Partially Met * Quick Note - Mirella Burton LPN - 08/21/2023 9:18 PM EST Spoke with trauma alfredo and was given the ok to loosen the edwin bandage around patient ankle due to c/o pain and numbness to the area * Plan of Care - Kelley Garnett RN - 08/21/2023 6:38 PM EST Problem: Actual or potential alteration in health Goal: Absence of healthcare acquired conditions 08/21/20231837 by Kelley Garnett, ANDREINA Outcome: Partially Met 08/21/20231747 by Kelley Garnett RN Outcome: Partially Met Goal: Knowledge of Interdisciplinary Plan of Care 08/21/20231837 by Kelley Garnett, ANDREINA Outcome: Partially Met 08/21/20231747 by Kelley Garnett, RN Outcome: Partially Met Goal: Knowledge of Enviroment 08/21/20231837 by Kelley Garnett, ANDREINA Outcome: Partially Met 08/21/20231747 by Kelley Garnett RN Outcome: Partially Met Problem: Pain Goal: Manage acute pain 08/21/20231837 by Kelley Garnett, ANDREINA Outcome: Partially Met 08/21/20231747 by Kelley Garnett, ANDREINA Outcome: Partially Met Goal: Manage chronic pain 08/21/20231837 by Kelley Garnett, ANDREINA Outcome: Partially Met 08/21/20231747 by Kelley Garnett, ANDREINA Outcome: Partially Met Goal: Reduced pain sensation 08/21/20231837 by Kelley Garnett, RN Outcome: Partially Met 08/21/20231747 by Kelley Garnett RN Outcome: Partially Met Goal: Achievement of comfort function goal 08/21/20231837 by Kelley Garnett, ANDREINA Outcome: Partially Met 08/21/20231747 by Kelley Garnett, RN Outcome: Partially Met Problem: Pain Goal: Manage acute pain 08/21/20231837 by Kelley Garnett, RN Outcome: Partially Met 08/21/20231747 by Kelley Garnett, RN Outcome: Partially Met Goal: Manage chronic pain 08/21/20231837 by Kelley Garnett, RN Outcome: Partially Met 08/21/20231747 by Kelley Garnett RN Outcome: Partially Met Goal: Reduced pain sensation 08/21/20231837 by Kelley Garnett, RN Outcome: Partially Met 08/21/2023 174 by Kelley Garnett, RN Outcome: Partially Met Goal: Achievement of comfort function goal 08/21/2023 1838 by Kelley Garnett RN Outcome: Partially Met 08/21/2023 1748 by Kelley Garnett RN Outcome: Partially Met Problem: Pressure Ulcer - Risk of Goal: Absence of pressure ulcer 08/21/20231837 by Kelley Garnett RN Outcome: Partially Met 08/21/2023 1748 by Kelley Garnett RN Outcome: Partially Met * Plan of Care - Kelley Garnett RN - 08/21/2023 5:48 PM EST Problem: Actual or potential alteration in health [...] Absence of pressure ulcer Outcome: Partially Met * Assessment & Plan Note - Annie Her CNP - 08/21/2023 5:09 PM EST Associated Problem(s): Fall . * Assessment & Plan Note - Annie Her CNP - 08/21/2023 5:09 PM EST Associated Problem(s): Closed traumatic displaced fracture of shaft of right femur with routine healing . * Sedation Documentation - Kilo Mar RN - 08/21/2023 4:29 PM EST Splint on and in place * Sedation Documentation - Kilo Mar RN - 08/21/2023 4:21 PM EST Xray at bedside. * Sedation Documentation - Kilo Mar RN - 08/21/2023 4:18 PM EST Attempting to reduce at this time. Xray called. * Sedation Documentation - Kilo Mar RN - 08/21/2023 4:18 PM EST Rt at bedside * Quick Note - Patti Beck MD - 08/21/2023 2:40 PM EST ==== TRAUMA, CRITICAL CARE, AND ACUTE CARE SURGERY STAFF PHYSICIAN NOTE OF PERSONAL INVOLVEMENT IN CARE: Please link this note as an addendum to the ALFREDO note with the same day of service. The patient was seen and examined by me, the attending trauma surgeon, on multidisciplinary rounds on the date of service listed above. I have reviewed the ALFREDO note, labs, studies, and advisor consultant notes. I have reviewed and agree [...] bay obtained with R femur fx, will placein traction. Further imaging without further findings. This [...] Surgery, Surgical Critical Care, and Neurocritical Care ==== documented in this [id number] Note* Quick Note - Erma Cardenas LPN - 08/28/2023 1:13 PM EST Reviewed discharge summary with pt. Daughter present. Pt wants to eat lunch the the daughter will be taking her to the facility in [place]. All questions answered, denies any further needs at this time [id number] Note* Quick Note - Erma Cardenas LPN - 08/28/2023 1:00 PM EST Dressing changed as ordered and pt tolerated well [id number] Note* Plan of Care - Erma Cardenas LPN - 08/28/2023 12:14 PM EST Problem: Actual or potential alteration in health [...] of comfort function goal Outcome: Partially Met [id number] History of Present illness Narrative* Codie Yung RN - 08/28/2023 11:36 AM EST Care Management Progress Note Date: 08/28/2023 Time: 11:36 AM Patient Name: Radha Baldwin Date of : 1940 Discharge Plan: [facility] Discharging Transportation Plan: Daughter will transport Discharge Plan Status: Pt has been accepted to [facility], the daughter is going to transport her, pt must be there by 5pm. Unit nurse and trauma team notified. Pt denies any other needs, CM signing off. * Maryann Sutherland - 08/28/2023 11:23 AM EST Screen Printer Brainer communicated with Leigh with [facility] who reports acceptance. No pre-cert required. Screen PrinterCodie, updated via Secure Chat. * Laurie Katz RD - 08/28/2023 10:13 AM EST Nutrition Care Initial Assessment Reason for visit: [...] Appearance: MAGDA MOSQUERA working @ [facility] this Labs: Recent Labs 08/26/23 0617 NA 140 [...] to follow as needed., while in-house. Office [phone] * Santiago Wendysavannah Solomon, TALISHA - 08/28/2023 6:21 AM EST [facility] DAILY PROGRESS NOTE MECHAN ISM: Fall DIAGNOSIS / REASON FOR CONSULT: Closed [...] OPEN REDUCTION INTERNAL FIXATION FEMUR RIGHT Yasmine TODAY' S ASSESSMENT AND PLAN OF CARE: As Above DISPOSITION - IPR declined awaiting follow up from [facility] CHIEF COMPLAINT/ HPI / PFSHx / EVENTS [...] ., Estimated Creatinine Clearance: 68.9 mL/min (A) (byC-G formula based on SCr of 0.46 mg/dL (L)).): Plavix and asa *Home Medications Reconciled: yes *Code Status: DNR-CCA Associated attestation - Patti Beck MD - 08/28/2023 10:51 AM EST TRAUMA/ ACUTE CARE SURGERY ATTENDING NOTE Please link this note as an addendum to the ALFREDO note with the same day of service. The patient was seen and examined by me, the attending trauma surgeon, on multidisciplinary rounds on the date of service listed above. I have reviewed the ALFREDO note, labs, studies, and advisor consultant notes. I have reviewed and agree with the documented history, exam, and plan of care, with the following additions and corrections: Today: Radha Baldwin is a 83 y.o. female presenting with R femur fx following fall. S/p fixation withortho. Working toward dispo to facility. Lovenox, home meds. A comprehensive review of systems was performed with the pt and all systems reviewed were negative except those listed in the HPI. Deric Beck MD, FACS, DABS, DABA Trauma, Acute Care Surgery, Surgical Critical Care, and Neurocritical Care * Maryann Sutherland - 08/27/2023 4:03 PM EST Communicated with the patient and daughter, who chose [facility]. Referral(s) sent, awaitingfollow-up. * Codie Yung RN - 08/27/2023 10:26 AM EST Care Management Progress Note Date: 08/27/2023 Time: 10:27 AM Patient Name: Radha Baldwin Date of : 1940 Discharge Plan: To be determined Discharging Transportation Plan: Discharge Plan Status: IPR declined- states that another level of care would be more appropriatefor this patient. This CM spoke with pt on phone to discuss, pt second choice was [facility], pt would like to discuss with her daughter when she comes in later today before sending referral to [place]. CM will continue to follow. 1415- this CM notified by unit nurse that pt is asking about going to a SNF, notified Maryann OBREGON to get pt and her DTR a list of SNF choices. * Emilia Askew RN - 08/27/2023 10:[address] has reviewed the patients chart and feels that another level of care would be more appropriate for this patient * Wendy Henderson CNP - 08/27/2023 6:22 AM EST [facility] DAILY PROGRESS NOTE MECHANISM: Fall DIAGNOSIS / REASON FOR CONSULT: [...] CARE: As above DISPOSITION - Referral to [facility] consult placed CHIEF COMPLAINT/ HPI / [...] 0.46 (L) 08/26/2023 No results found for: "ALT", "AST", "GGT", "ALKPHOS", "BILITOT" DAILY CHECKLIST: *Need for Restraints: no *Need for Urinary Catheter: no *Need for Central Access Devices: no *Stress Ulcer Prophylaxis: protonix- home med *VTE Prophylaxis (Body mass index is 25 kg/m ., Estimated Creatinine Clearance: 68.9 mL/min (A) (byC-G formula based on SCr of 0.46 mg/dL (L)).): ,lovenox 30 mg BID *Home Medications Reconciled: yes *Code Status: DNR-CCA Associated attestation - Patti Beck MD - 08/27/2023 1:35 PM EST TRAUMA/ ACUTE CARE SURGERY ATTENDING NOTE Please link this note as an addendum to the ALFREDO note with the same day of service. The patient was seen and examined by me, the attending trauma surgeon, on multidisciplinary rounds on the date of service listed above. I have reviewed the ALFREDO note, labs, studies, and advisor consultant notes. I have reviewed and agree with the documented history, exam, and plan of care, with the following additions and corrections: Today: Radha Baldwin is a 83 y.o. female presenting with R femur fx following fall. S/p fixation withortho. Working toward dispo. Lovenox, home meds, dispo planning for IPR. A comprehensive review of systems was performed with the pt and all systems reviewed were negative except those listed in the HPI. Deric Beck MD, FACS, DABS, DABA Trauma, Acute Care Surgery, Surgical Critical Care, and Neurocritical Care * Ben Alves, PEARL DIVER - 08/26/2023 1:26 PM EST Physical Therapy PHYSICAL THERAPY TREATMENT NOTE Skilled [...] increased risk of safety hazard without recommended equipment,Equipment required to maintain weight bearing status per [...] orientation Standing Balance - Static: Minimal assist Property Management Bookkeeper - Standing Static: wheeled walker Loss of Balance- Standing Static: intermittent Standing Balance - Dynamic: Minimal assist, Moderate assist Property Management Bookkeeper - Standing Dynamic: same braid cutter used for static standing tasks Loss of Balance- Standing Dynamic: intermittent Bed Mobility Rolling: (pt was sitting up in recliner upon arrival) Transfers Sit to Stand: Moderate assist Property Management Bookkeeper: wheeled walker For: LE positioning, UE management, [...] flexed, over reliance on upper extremities, decreased ranjan(steps per minute) Weight Bearing Status: able to maintain Gait Loss(es) of Balance: intermittent Environment/Terrain: open/community environment, multiple distractions (foloowed by chair for safety) Skilled Intervention Provided: verbal cues, tactile cues, facilitation, monitoring patient responsewith activity, patient education For: device management and [...] around toilet Mobility Equipment: Cane ADL Equipment: Cleaner Wall, Long handled shoe horn Prior Level of Function Level of White - Transfers/Ambulation/Mobility: Independent with functional transfers, Independent with household ambulation, Independent with community ambulation Level of White - ADLs: Independent Level of White - Homemaking: Independent Driving: Patient drives Vocational: [...] completion of Physical Therapy Plan of Care. Annie Stephenson, ASSOCIATE PROPERTY MANAGER - 08/26/2023 12:12 PM EST [facility] DAILY PROGRESS NOTE MECHANISM: Fall DIAGNOSIS / REASON FOR CONSULT: [...] CARE: As above DISPOSITION - Referral to [facility] CHIEF COMPLAINT/ HPI / PFSHx / EVENTS [...] 0.46 (L) 08/26/2023 No results found for: "ALT", "AST", "GGT", "ALKPHOS", "BILITOT" DAILY CHECKLIST: *Need for Restraints: no *Need for Urinary Catheter: no *Need for Central Access Devices: no *Stress Ulcer Prophylaxis: protonix- home med *VTE Prophylaxis (Body mass index is 25 kg/m ., Estimated Creatinine Clearance: 68.9 mL/min (A) (byC-G formula based on SCr of 0.46 mg/dL (L)).): ,lovenox 30 mg BID *Home Medications Reconciled: yes *Code Status: DNR-CCA * Diana Winston OTA - 08/26/2023 10:41 AM EST Occupational Therapy OCCUPATIONAL THERAPY TREATMENT NOTE Skilled [...] FWW, slow BLE movements and pt stating "I have to focus to move my feet") Functional Mobility - Skilled Intervention Provided: verbal [...] to/from bedside commode (CGA to transfer onto BSC, mod A when transferring off of BS) Property Management Bookkeeper: wheeled walker Skilled Intervention Provided: verbal cues, [...] around toilet Mobility Equipment: Cane ADL Equipment: Cleaner Wall, Long handled shoe horn Prior Level of Function Level of White - Transfers/Ambulation/Mobility: Independent with functional transfers, Independent with household ambulation, Independent with community ambulation Level of White - ADLs: Independent Level of White - Homemaking: Independent Driving: Patient drives Vocational: [...] completion of Occupational Therapy Plan of Care. * Sofi Doyle OTA - 08/25/2023 3:35 PM EST Occupational Therapy OCCUPATIONAL THERAPY TREATMENT NOTE Skilled [...] for LB dressing with AE. CR D formanagment of pants to waist. Pt declined to attempt to stand. Reported she was familiar with AE andstated " I have my own way I use the organ grinder.") Functional Mobility: (declined reporting she exerted herself [...] around toilet Mobility Equipment: Cane ADL Equipment: Cleaner Wall, Long handled shoe horn Prior Level of Function Level of White - Transfers/Ambulation/Mobility: Independent with functional transfers, Independent with household ambulation, Independent with community ambulation Level of White - ADLs: Independent Level of White - Homemaking: Independent Driving: Patient drives Vocational: [...] completion of Occupational Therapy Plan of Care. * Emilia Askew RN - 08/25/2023 3:27 PM EST Consult received in review * Codie Yung RN - 08/25/2023 3:00 PM EST Care Management Progress Note Date: 08/25/2023 Time: 3:04 PM Patient Name: Radha Baldwin Date of : 1940 Discharge Plan: To be determined Discharging Transportation Plan: To be determined Discharge Plan Status: Pt sitting up in chair with daughter sitting at the bedside as well, pt would like to be referred to [facility] and then possibly [facility] if not accepted by IPR, according to PT recommendation pt could be a good candidate for IPR. IPR consult placed and secure chat sent for referral. CM will continue to follow. * Ben Alves PTA - 08/25/2023 1:11 PM EST Physical Therapy PHYSICAL THERAPY TREATMENT NOTE Skilled [...] increased risk of safety hazard without recommended equipment,Equipment required to maintain weight bearing status per [...] orientation Standing Balance - Static: Minimal assist Property Management Bookkeeper - Standing Static: wheeled walker Loss of Balance- Standing Static: intermittent Standing Balance - Dynamic: Minimal assist, Moderate assist Property Management Bookkeeper - Standing Dynamic: same braid cutter used for static standing tasks Loss of [...] Moderate assist Stand Pivot Transfers: Moderate assist Property Management Bookkeeper: wheeled walker Additional Transfer Trial 2: Yes Sit to Stand Trial 2: Moderate assist Property Management Bookkeeper Trial 2: wheeled walker Skilled Intervention Provided: verbal cues, tactile cues, facilitation, patient education For: LE positioning, UE management, controlled descent, safety during functional tasks, safe use ofAD and/or equipment Resulting in: increased upright tolerance [...] verbal cues, tactile cues, facilitation, monitoring patient responsewith activity, patient education For: device management and [...] around toilet Mobility Equipment: Cane ADL Equipment: Cleaner Wall, Long handled shoe horn Prior Level of Function Level of White - Transfers/Ambulation/Mobility: Independent with functional transfers, Independent with household ambulation, Independent with community ambulation Level of White - ADLs: Independent Level of White - Homemaking: Independent Driving: Patient drives Vocational: [...] completion of Physical Therapy Plan of Care. * Rosetta Carver Gloria, ASSOCIATE PROPERTY MANAGER - 08/25/2023 6:38 AM EST [facility] DAILY PROGRESS NOTE MECHAN ISM: Fall DIAGNOSIS / REASON FOR CONSULT: Closed [...] OPEN REDUCTION INTERNAL FIXATION FEMUR RIGHT Yasmine TODAY' S ASSESSMENT AND PLAN OF CARE: As above DISPOSITION - Referral to [facility] CHIEF COMPLAINT/ HPI / PFSHx / EVENTS [...] 0.40 (L) 08/25/2023 No results found for: "ALT", "AST", "GGT", "ALKPHOS", "BILITOT" DAILY CHECKLIST: *Need for Restraints: no *Need for Urinary Catheter: no *Need for Central Access Devices: no *Stress Ulcer Prophylaxis: protonix- home med *VTE Prophylaxis (Body mass index is 25 kg/m ., Estimated Creatinine Clearance: 79.2 mL/min (A) (byC-G formula based on SCr of 0.4 mg/dL (L)).): SCDs, aspirin and plavix *Home Medications Reconciled: yes *Code Status: DNR-CCA Associated attestation - Patti Beck MD - 08/25/2023 1:57 PM EST TRAUMA/ ACUTE CARE SURGERY ATTENDING NOTE Please link this note as an addendum to the ALFREDO note with the same day of service. The patient was seen and examined by me, the attending trauma surgeon, on multidisciplinary rounds on the date of service listed above. I have reviewed the ALFREDO note, labs, studies, and advisor consultant notes. I have reviewed and agree with the documented history, exam, and plan of care, with the following additions and corrections: Today: Radha Baldwin is a 83 y.o. female presenting with R femur fx following fall. S/p fixation withortho. Working toward dispo. Pt with constipation, does [...] Surgery, Surgical Critical Care, and Neurocritical Care * Crissy Luu MD - 08/24/2023 5:47 PM EST ATTENDING PHYSICIAN PATTI BECK MD PRIMARY CARE PHYSICIAN PHYSICIAN NO ADMITTING PHYSICIAN PATTI BECK MD CONSULTING PHYSICIAN PATTI BECK MD She is 2 days status post ORIF right periprosthetic femur fracture. At this point in time, she is in good spirits today. Vital signs are stable, afebrile. Hemoglobin 8.0. Wound is clean, dry, intact.No erythema. No drainage. No lymphangitis. No cellulitis. IMPRESSION Postoperative day 2 right femur open reduction internal fixation. PLAN At this point in time, she will do weightbearing as tolerated. Discharge planning is underway. Further recommendations to follow. D 08/24/2023 17:47 [id number] 08/24/2023 20:05 MCB/MODL * Ben Alves PTA - 08/24/2023 4:09 PM EST Physical Therapy PHYSICAL THERAPY TREATMENT NOTE Skilled [...] increased risk of safety hazard without recommended equipment,Equipment required to maintain weight bearing status per physician orders, Unreasonable time frame to complete ADL without recommended equipment, Patient will require increased level of care without recommended equipment Rehab Potential: Good, For goals Outcomes Measures AM-PAC Basic Mobility Raw Score: 10 Points AM-PAC Basic Mobility % Impaired: 71.92% Activity Tolerance [...] Balance - Static: Moderate assist, Maximal assist Property Management Bookkeeper - Standing Static: wheeled walker, BUE Loss of Balance- Standing Static: multidirectional, intermittent Standing Balance - Dynamic: Maximal assist Property Management Bookkeeper - Standing Dynamic: same braid cutter used for static standing tasks Loss of [...] Maximal assist Supine to Sit: Maximal assist Property Management Bookkeeper: bedrails, bed positioning mechanics Skilled Intervention Provided: verbal cues, tactile cues, facilitation For: safe use of bedrails and/or equipment, sequencing of movement Resulting in: improved activity tolerance, improved awareness Transfers Sit to Stand: Moderate assist, Maximal assist Bed to Chair: Maximal assist Stand Pivot Transfers: Maximal assist Property Management Bookkeeper: BUE Additional Transfer Trial 2: Yes Sit to Stand Trial 2: (pt performed STS and pivot transfers x 3 with PEARL DIVER in front for safety.) Gait/Locomotion Unable at [...] around toilet Mobility Equipment: Cane ADL Equipment: Cleaner Wall, Long handled shoe horn Prior Level of Function Level of White - Transfers/Ambulation/Mobility: Independent with functional transfers, Independent with household ambulation, Independent with community ambulation Level of White - ADLs: Independent Level of White - Homemaking: Independent Driving: Patient drives Vocational: [...] completion of Physical Therapy Plan of Care. * Maryann Sutherland - 08/24/2023 3:34 PM EST Communicated with Codie Yung, who reports patient/family request referral to [facility]. Referral(s) sent, awaiting follow-up. * Rosetta Carver CNP - 08/24/2023 6:28 AM EST [facility] DAILY PROGRESS NOTE MECHAN ISM: Fall DIAGNOSIS / REASON FOR CONSULT: Closed [...] OPEN REDUCTION INTERNAL FIXATION FEMUR RIGHT Yasmine TODAY' S ASSESSMENT AND PLAN OF CARE: As above DISPOSITION - TBD CHIEF COMPLAINT/ HPI / PFSHx / EVENTS [...] lesions. Intake/Output Summary (Last 24 hours) at 08/24/2023627 Last data filed at 08/23/2023 2100 Gross [...] 0.43 (L) 08/24/2023 No results found for: "ALT", "AST", "GGT", "ALKPHOS", "BILITOT" DAILY CHECKLIST: *Need for Restraints: no *Need for Urinary Catheter: yes, remove today *Need for Central Access Devices: no *Stress Ulcer Prophylaxis: protonix- home med *VTE Prophylaxis (Body mass index is 25 kg/m ., Estimated Creatinine Clearance: 73.7 mL/min (A) (byC-G formula based on SCr of 0.43 mg/dL [...] note with the relevant labs, studies, and advisor consultant notes. I have reviewed and agree [...] Therapies Abla-monitor d/c planning Glynn Caal MD * Amos Burton MD - 08/23/2023 10:26 AM EST [facility] PATIENT: Radha Baldwin DATE / TIME: 08/23/23 [...] 3. Pain management 4. Therapies as tolerated * Crissy Luu MD - 08/23/2023 9:02 AM EST ATTENDING PHYSICIAN PATTI BECK MD PRIMARY CARE PHYSICIAN PHYSICIAN NO ADMITTING PHYSICIAN PATTI BECK MD CONSULTING PHYSICIAN PATTI BECK MD PROGRESS NOTE She is postoperative [...] of TIA and strokes. We will continue theaspirin as well as the Plavix. Postoperative a transfusion may be required. However, the risk of discontinuation of the anticoagulation far outweighs the benefits of stroke and heart attack prevention . Further recommendations to follow. D 08/23/2023 09:04 [id number] T 08/23/2023 09:47 MCB/MODL * Diana Qureshi - 08/21/2023 2:30 PM EST Spiritual Care Progress Note Completed by: Diana Qureshi Person(s) Present During this Visit: Cousin Time Spent in Direct Patient Care: 45 Narrative: Manager Bank responded to Level 2 Trauma. Medical staff attending to patient upon arrival. Afamily member arrived to provide support until pt's son gets here. Manager Bank provided listening support to family member until she could be united with pt. The Pastoral Care Team will remain available to support patient and family PRN. Patients Response to Pastoral Care: Other (see comment) (Pt being medicall assessed) Planning for Future Visits: PRN Diana Qureshi MDiv Staff Manager Bank Pastoral Care Department [facility] [phone] on-call [phone] office 08/21/23 1430 Visit Background Visit With Cousin Visit By Staff Manager Bank Visit Progression Introduction Visit Requested By Manager Bank Referral Visit Source Overhead Page Visit Type Crisis Visit Visit Circumstances and Events Trauma 2 Visit Length (minutes) 45 Patient's Response to Pastoral Care Other (see comment) (Pt being medicall assessed) Visit Planning PRN Spiritual Assessment Not assessed during visit Lutheran Assessment Not assessed during this visit Family assessment provided? Not assessed during this visit documented in this [id number] Hospital course Narrative* Taina Annie Martha, ASSOCIATE PROPERTY MANAGER - 08/28/2023 10:32 AM EST DISCHARGE SUMMARY Patient: Radha Baldwin Date of : 1940 Site: [facility] Family Provider: Jena Physician Admit Date: 08/21/2023 Discharge Date/Time: 08/28/2023 Disposition: [place] swing bed. Clinical Summary Hospital Course: Radha [...] Family Provider: No, Physician, Phone: None Address: [facility] Follow Up: Crissy Luu MD [address] [facility] [address] Follow up in 2 week(s) Primary Care [...] given to the patient/family at discharge. Please seethe After Visit Summary in the electronic medical record for details. Time spent on discharge: < 30 minutes Completed by: Annie Her CNP on 08/28/23, 11:34 AM Associated attestation - Patti Beck MD - 08/28/2023 11:36 AM EST Name: Radha Baldwin Admit Date and Time: 08/21/2023 2:29 PM Date of Service: 08/28/23 Please link this note as an addendum to the ALFREDO note with the same day of service. The patient was seen and examined by me, the attending trauma surgeon, on multidisciplinary rounds on the date of service listed above. I have reviewed the ALFREDO note, labs, studies, and advisor consultant notes. I have reviewed and agree with the documented history, exam, and plan of care, with the following additions and corrections: Stable for discharge. Please see progress note from same date. Deric Beck MD, FACS, DABS, DABA Trauma, Acute Care Surgery, Surgical Critical Care, and Neurocritical Care documented in this [id number] Hospital Discharge instructions * Discharge Instructions* Annie Her CNP - 08/28/2023 10:32 AM [...] this follow up appointment documented in this [id number] Note* Plan of Care - Annie Brush RN - 08/28/2023 1:34 AM EST Problem: Actual or potential alteration in health [...] Goal: Absence of falls Outcome: Partially Met [place] [id number] Note* [facility] IP Rehab - Raymond Gannon PTA - 08/27/2023 3:45 PM EST PHYSICAL THERAPY VISIT VARIANCE NOTE Attempted to see patient at this time, but unable secondary to: Patient Unavailable (pt being seen by LEAD DESIGNER). Will follow up as appropriate. [id number] Note* Plan of Care - Carolina Correa RN - 08/27/2023 10:59 AM EST Problem: Actual or potential alteration in health Goal: Absence of healthcare acquired conditions Outcome: Partially Met Problem: Actual or potential alteration in health Goal: Knowledge of Interdisciplinary Plan of Care Outcome: Partially Met Problem: Pain Goal: Manage acute pain Outcome: Partially Met Problem: Pain Goal: Manage acute pain Outcome: Partially Met [place] [id number] Note* Plan of Care - Annie Brush RN - 08/26/2023 10:39 PM EST Problem: Actual or potential alteration in health [...] Goal: Absence of falls Outcome: Partially Met [place] [id number] Note* Plan of Care - Mirella Burton LPN - 08/24/2023 10:47 PM EST Problem: Actual or potential alteration in health [...] Goal: Absence of falls Outcome: Partially Met [place] [id number] Consult note* Codie Yung RN - 08/24/2023 3:25 PM ESTAssociated Order(s): IP CONSULT TO CARE MANAGEMENT Care Management Consult Note Date: 08/24/2023 Time: 3:25 PM Patient Name: Radha Baldwin Date of : 1940 Reason for Consult: Discharge Needs Discharge Plan: To be determined Discharging Transportation Plan: To be determined Discharge Plan Status: CM consulted for discharge planning. Spoke with pt at the [facility] and educated on role of CM and discussed discharge planning. Pt wanting to go to a SNF for rehab, pt had a fallat home and fractured her right hip. Pt gave only one choice for [facility] in [place], [facility] notified. Pt states she does not want to go to [place]. CM will continue to follow. Pt has [...] stated some issues with cooking, pt states "she does not like to cook", discussed getting delivered meals but pt declined at this time. Pt denies issues with financial/food/medicationinsecurities. Living Arrangements: Alone Support Systems: Friends/neighbors Assistance [...] routine activities due to chronic pain:: Yes [id number] Consult note* Codie Yung RN - 08/24/2023 3:25 PM ESTAssociated Order(s): IP CONSULT TO CARE MANAGEMENT Care Management [...] a SNF for rehab, pt had a fallat home and fractured her right hip. Pt gave only one choice for [facility] in [place], [facility] notified. Pt states she does not want to go to [place]. CM will continue to follow. Pt has [...] stated some issues with cooking, pt states "she does not like to cook", discussed getting delivered meals but pt declined at this time. Pt denies issues with financial/food/medicationinsecurities. Living Arrangements: Alone Support Systems: Friends/neighbors Assistance [...] routine activities due to chronic pain:: Yes * Kathleen Orellana, OT - 08/23/2023 9:30 AM EST Occupational Therapy OCCUPATIONAL THERAPY EVALUATION S/P ORIF [...] co morbidities do affect patient performance in theabove activities and roles. The performance deficits are a result of musculoskeletal impairment(s) in right, lower extremity including strength, balance, acitvity tolerance, pain, problem solving, sequencing, insight, safety, and knowledge deficit. The patient's home setup is a supervisor stock ranch for return to prior level of function. The patient's education level is a supervisor stock ranch, compliance is a supervisor stock ranch, awareness of own capacity and performanceis a supervisor stock ranch to return to prior level of function. [...] 2 person assist, Head of bed flat Property Management Bookkeeper: patient slide sheet / friction-reducing device Functional Transfers Sit to Stand: (not attempted at this time d/t drop in BP at EOB and report of feeling "sweaty") Additional Assessment Details Once at EOB, reported slight dizziness; BP 106/59. After seated at EOB several minutes, reports feeling "sweaty"; BP 90/47 and was returned to supine. After several minutes supine, BP 131/63. Nursinginformed of all. Totay's H&H 7.4 & 11.8. [...] around toilet Mobility Equipment: Cane ADL Equipment: Cleaner Wall, Long handled shoe horn Prior Level of Function Level of White - Transfers/Ambulation/Mobility: Independent with functional transfers, Independent with household ambulation, Independent with community ambulation Level of White - ADLs: Independent Level of White - Homemaking: Independent Driving: Patient drives Vocational: [...] completion of Occupational Therapy Plan of Care. * Kylah Pride PT - 08/23/2023 9:29 AM EST Physical Therapy PHYSICAL THERAPY EVALUATION Skilled Therapy [...] increased risk of safety hazard without recommended equipment,Equipment required to maintain weight bearing status per [...] participation in this plan of care: see H Number of History elements affecting this patient's PT plan of care: 3 or more Examination of Body Systems: The patient presents with: Musculoskeletal impairments: Strength, ROM, Pain, Functional Endurance Neurologic Impairments: Balance, Pain Cardiopulmonary Impairments: Blood Pressure Regulation with Activity. These impairments result in limitations of Gait, Functional Transfers, Stair- Climbing, Safety, Safety Awareness, Wheelchair Mobility, Activity Tolerance, [...] 2 person assist, Head of bed flat Property Management Bookkeeper: bedrails, patient slide sheet / friction-reducing device [...] shower seat Mobility Equipment: Cane ADL Equipment: Cleaner Wall, Long handled shoe horn Prior Level of Function Level of White - Transfers/Ambulation/Mobility: Independent with functional transfers, Independent with household ambulation, Independent with community ambulation Level of White - ADLs: Independent Level of White - Homemaking: Independent Driving: Patient drives Vocational: [...] hospital or completion of Physical Therapy Plan. * Crissy Luu MD - 08/22/2023 9:31 AM EST ATTENDING PHYSICIAN PATTI BECK MD PRIMARY CARE PHYSICIAN PHYSICIAN NO ADMITTING PHYSICIAN PATTI BECK MD CONSULTING PHYSICIAN PATTI BECK MD Orthopedic Consultation Dee is an 83-year-old patient who had a right total hip replacement performed 8 years ago in [place], [place]. The patient had a mechanical fall [...] ability to do inner fragmentary fixation. We willpreserve the femoral component of the hip replacement with open reduction internal fixation. I explained to her that with her Plavix and aspirin use the potential of blood loss that could result in a transfusion. The patient understands all these risks and complications. Her morning hemoglobin is 11.8. Further recommendations to follow. All risks, complications were discussed. She is in agreementwith right femur ORIF. D 08/22/2023 09:36 [id number] 08/22/2023 10:15 MCB/MODL documented in this [id number] Note* Plan of Care - Tye Herrera RN - 08/24/2023 5:27 AM EST Problem: Actual or potential alteration in health [...] Goal: Absence of falls Outcome: Partially Met [id number] Evaluation + Plan note* Assessment & Plan Note - Rosetta Carver CNP - 08/23/2023 9:07 PM ESTAssociated Problem(s): Acute blood loss anemia S/p 1 unit prbc Hgb ___ (8.2) [id number] Consult note* Kathleen Orellana OT - 08/23/2023 9:30 AM EST Occupational Therapy OCCUPATIONAL THERAPY EVALUATION S/P ORIF [...] co morbidities do affect patient performance in theabove activities and roles. The performance deficits are a result of musculoskeletal impairment(s) in right, lower extremity including strength, balance, acitvity tolerance, pain, problem solving, sequencing, insight, safety, and knowledge deficit. The patient's home setup is a supervisor stock ranch for return to prior level of function. The patient's education level is a supervisor stock ranch, compliance is a supervisor stock ranch, awareness of own capacity and performanceis a supervisor stock ranch to return to prior level of function. [...] 2 person assist, Head of bed flat Property Management Bookkeeper: patient slide sheet / friction-reducing device Functional Transfers Sit to Stand: (not attempted at this time d/t drop in BP at EOB and report of feeling "sweaty") Additional Assessment Details Once at EOB, reported slight dizziness; BP 106/59. After seated at EOB several minutes, reports feeling "sweaty"; BP 90/47 and was returned to supine. After several minutes supine, BP 131/63. Nursinginformed of all. Totay's H&H 7.4 & 11.8. [...] around toilet Mobility Equipment: Cane ADL Equipment: Cleaner Wall, Long handled shoe horn Prior Level of Function Level of White - Transfers/Ambulation/Mobility: Independent with functional transfers, Independent with household ambulation, Independent with community ambulation Level of White - ADLs: Independent Level of White - Homemaking: Independent Driving: Patient drives Vocational: [...] completion of Occupational Therapy Plan of Care. [id number] Consult note* Kylah Pride, PT - 08/23/2023 9:29 AM EST Physical Therapy PHYSICAL THERAPY EVALUATION Skilled Therapy [...] increased risk of safety hazard without recommended equipment,Equipment required to maintain weight bearing status per physician orders, Unreasonable time frame to complete ADL without recommended equipment, Patient will require increased level of care without recommended equipment Rehab Potential: Good, For goals Outcomes Measures [facility] Basic Mobility Raw Score: 7 Points AM-[facility] Basic Mobility % Impaired: 93.19% Physical Therapy [...] result in limitations of Gait, Functional Transfers, Stair- Climbing, Safety, Safety Awareness, Wheelchair Mobility, Activity Tolerance, [...] 2 person assist, Head of bed flat Property Management Bookkeeper: bedrails, patient slide sheet / friction-reducing device [...] shower seat Mobility Equipment: Cane ADL Equipment: Cleaner Wall, Long handled shoe horn Prior Level of Function Level of White - Transfers/Ambulation/Mobility: Independent with functional transfers, Independent with household ambulation, Independent with community ambulation Level of White - ADLs: Independent Level of White - Homemaking: Independent Driving: Patient drives Vocational: [...] hospital or completion of Physical Therapy Plan. [id number] Note* Plan of Care - Tye Herrera RN - 08/23/2023 6:10 AM EST Problem: Actual or potential alteration in health [...] Goal: Absence of falls Outcome: Partially Met [id number] Note* Tertiary Note - Emilia Tatum CNP - 08/22/2023 1:01 PM EST [facility] DAILY PROGRESS NOTE MECHAN ISM: Fall DIAGNOSIS / REASON FOR CONSULT: Closed [...] OPEN REDUCTION INTERNAL FIXATION FEMUR RIGHT Yasmine TODAY' S ASSESSMENT AND PLAN OF CARE: As above DISPOSITION - TBD CHIEF COMPLAINT/ HPI / PFSHx / EVENTS [...] CREATININE 0.72 08/22/2023 No results found for: "ALT", "AST", "GGT", "ALKPHOS", "BILITOT" DAILY CHECKLIST: *Need for Restraints: no *Need [...] *Home Medications Reconciled: yes *Code Status: [facility] [employer] Work Phone: [phone] 524-827701-13-2024 Note* Brief Op Note - Crissy Luu MD - 08/22/2023 11:15 AM EST Brief Post Operative Note Patient Name: Radha Baldwin : 1940 (83 y.o.) Date of Service: 08/22/2023 CSN: [id number] Procedure(s): OPEN REDUCTION INTERNAL FIXATION FEMUR RIGHT Pre-Operative Diagnoses: * Right femur fracture Post-Operative Diagnoses: * Same as Pre-Op Diagnosis Surgeon(s) and Role: * Crissy Luu MD - Primary Anesthesiologist: Javi Hsieh MD TAKE AWAY MAN: Patricia Mathias CRNA Cutter Operator Helper: Frieda Padgett RN Outsole Skiver: Montserrat Taylor, TECHNOLOGIST Scrub Person: Lorena Xiong RN Medical Equipment Repair Technician: Amberly Zendejas Float: Julienne Bae RN; Kathleen Klein RN Operative findings: see op note Intra and immediate post-operative complications: none Type of anesthesia used: General Estimated blood loss: 200 mL Estimated urine output: 325 mL Specimen(s): * No specimens in log * Implant(s): Implant Name Type Inv. Item Serial No. Core Shaper Lot No. LRB No. Used Action PLATE 4.5 X 206MM 11HL BROAD LCP - [id number] PLATE 4.5 X 206MM 11HL BROAD LCP [employer] LT LOAD #[id number] Right 1 Implanted SCREW 4.5 X 32MM CORTEX SELF-TAP - [id number] SCREW 4.5 X 32MM CORTEX SELF-TAP SYNTHES LT LOAD #[id number] Right 5 Implanted SCREW 4.5 X 34MM CORTEX SELF-TAP - [id number] SCREW 4.5 X 34MM CORTEX SELF-TAP SYNTHES LT LOAD #[id number] Right 3 Implanted SCREW 5 X 14MM LOCKING SELF-TAP T25 STRDRV REC - [id number] SCREW 5 X 14MM LOCKING SELF-TAP T25 STRDRV REC SYNTHES LT LOAD #[id number] Right 2 Implanted SCREW 5 X 10MM PERIPROSTHETIC LOCKING S-T STRDRV STERL - [id number] SCREW 5 X 10MM PERIPROSTHETIC LOCKING S-T STRDRV STERL SYNTHES LT [id number] Right 1 Implanted CABLE 1.7 X 750MM W/CRIMP STERL - [id number] CABLE 1.7 X 750MM W/CRIMP STERL SYNTHES LT [id number] Right 3 Implanted Drain(s): * No LDAs found * Wound(s): Wound 08/22/23 1 Surgical Wound Trochanter Right;Lateral;Proximal (Active) Wound Closure Sutures;Kahlotus;Surgical Adhesive 08/21/23 0002 Crissy Luu MD 08/22/2023 11:15 AM [id number] Note* Op Note - Crissy Luu MD - 08/22/2023 10:03 AM EST ATTENDING PHYSICIAN PATTI BECK MD PRIMARY CARE PHYSICIAN PHYSICIAN NO ADMITTING PHYSICIAN PATTI BECK MD CONSULTING PHYSICIAN PATTI BECK MD PREOPERATIVE DIAGNOSIS Right periprosthetic femur [...] the actual femoral stem. Acetabular component appeared amanda intact. Femoral appeared to be well-seated, and [...] ahead and proceeded forward with making our skinincision laterally, split the iliotibial band. We then elevated the vastus lateralis off the femur.Femur was anatomically reduced, held with an 11-hole Synthes locking plate. We were able to get 5 screws distal to the fracture, 2 screws distal to the tip of the stem in the proximal portion of the fracture with an interfragmentary screw. We were able to do cable employment educational coord proximal to that. Once I felt that [...] extubated, and taken to PACU without intraoperative c omplication. D 08/22/2023 11:20 [id number] T 08/22/2023 12:12 MCB/MODL [id number] Note* [facility] IP Rehab - Melav Husain OT - 08/22/2023 9:50 AM EST OCCUPATIONAL THERAPY VISIT VARIANCE NOTE Attempted to see patient at this time, but unable secondary to: Awaiting Medical Clearance (comment) (Patient in OR at this time. Will follow-up post-operatively.). Will follow up as appropriate. [id number] Consult note* Crissy Luu MD - 08/22/2023 9:31 AM EST ATTENDING PHYSICIAN PATTI BECK MD PRIMARY CARE PHYSICIAN PHYSICIAN NO ADMITTING PHYSICIAN PATTI BECK MD CONSULTING PHYSICIAN PATTI BECK MD Orthopedic Consultation Dee is an 83-year-old patient who had a right total hip replacement performed 8 years ago in [place], [place]. The patient had a mechanical fall [...] ability to do inner fragmentary fixation. We willpreserve the femoral component of the hip replacement with open reduction internal fixation. I explained to her that with her Plavix and aspirin use the potential of blood loss that could result in a transfusion. The patient understands all these risks and complications. Her morning hemoglobin is 11.8. Further recommendations to follow. All risks, complications were discussed. She is in agreementwith right femur ORIF. D 08/22/2023 09:36 [id number] T 08/22/2023 10:15 MCB/MODL [id number] Attending History and physical note* Crissy Luu MD - 08/22/2023 9:31 AM EST INTERVAL HISTORY AND PHYSICAL Patient Name: Radha Baldwin Admit Date: [id number] MR #: [id number] : 1940 The H&P has been reviewed and the patient has been examined. I concur with the findings of the H&P. There are no significant changes. It is appropriate to proceed with the planned procedure. Crissy Luu MD 08/22/2023 9:31 AM Source Note - Annie Her CNP - 08/21/2023 5:09 PM EST [facility] TRAUMA EVALUATION / HISTORY AND PHYSICAL Closed traumatic displaced fracture of shaft of [...] aspirin/plavix Notification Time: 1422 Arrival To Bedside: 1427 Attending Arrival Time: [...] was a GCS of 15, moving all extremities,endorsing pain to her right leg. She was [...] total) by mouth 2 (two) times a day. rosuvastatin (CRESTOR) 5 MG tablet Take 1 (one) tablet (5 mg total) by mouth every night at bedtime. scopolamine (TRANSDERM-SCOP) 1 mg over 3 days [...] use, family hx of clotting or bleeding disorders.+antiplatelet use. Allergic/Immunologic: Allergies reviewed, no use of [...] Pupils 3 mm equal and reactive bilaterally. [place] Coma Scale EYES (4-spont, 3-to verb stim, 2-to pain, 1-none) 4 VERBAL (5-oriented, 4-confused, 3-inappropriate, 2-incomprehensible, 1-none) 5 MOTOR (6-follows, 5-localizes, 4-withdraws, 3-flexion, 2-extension, 1-none) 6 GCS: 15 SECONDARY SURVEY General Appears age appropriate. HEENT Head normocephalic, PERRL, EOMI, mid face stable, tympanic membranes intact, no subconjunctival hemorrhage, nares patent bilaterally, no epistaxis, mouth clear of foreign bodies, no lacerationsor abrasions. Neck Cervical collar in place, no [...] adjunct testing were conducted in accordance with ATLSguidelines. The attending trauma surgeon Dr. Beck was present at bedside. IMAGING STUDIES: CXR/PXR obtained and reviewed in real time in the trauma bay CT scan of the head, neck have been ordered the images were reviewed in real time in the CT department, radiologic interpretation is pending. LABORATORY STUDIES: Results from trauma bay labs were drawn and are pending. [id number] History and physical note* Crissy Luu MD - 08/22/2023 9:31 AM EST INTERVAL HISTORY AND PHYSICAL Patient Name: Radha Baldwin Admit Date: [id number] MR #: [id number] : 1940 The H&P has been reviewed and the patient has been examined. I concur with the findings of the H&P. There are no significant changes. It is appropriate to proceed with the planned procedure. Crissy Luu MD 08/22/2023 9:31 AM Source Note - Annie Her CNP - 08/21/2023 5:09 PM EST [facility] TRAUMA EVALUATION / HISTORY AND PHYSICAL Closed traumatic displaced fracture of shaft of [...] was a GCS of 15, moving all extremities,endorsing pain to her right leg. She was [...] total) by mouth 2 (two) times a day. rosuvastatin (CRESTOR) 5 MG tablet Take 1 (one) tablet (5 mg total) by mouth every night at bedtime. scopolamine (TRANSDERM-SCOP) 1 mg over 3 days [...] use, family hx of clotting or bleeding disorders.+antiplatelet use. Allergic/Immunologic: Allergies reviewed, no use of [...] Pupils 3 mm equal and reactive bilaterally. [place] Coma Scale EYES (4-spont, 3-to verb stim, 2-to pain, 1-none) 4 VERBAL (5-oriented, 4-confused, 3-inappropriate, 2-incomprehensible, 1-none) 5 MOTOR (6-follows, 5-localizes, 4-withdraws, 3-flexion, 2-extension, 1-none) 6 GCS: 15 SECONDARY SURVEY General Appears age appropriate. HEENT Head normocephalic, PERRL, EOMI, mid face stable, tympanic membranes intact, no subconjunctival hemorrhage, nares patent bilaterally, no epistaxis, mouth clear of foreign bodies, no lacerationsor abrasions. Neck Cervical collar in place, no [...] adjunct testing were conducted in accordance with ATLSguidelines. The attending trauma surgeon Dr. Beck was present at bedside. IMAGING STUDIES: CXR/PXR obtained and reviewed in real time in the trauma bay CT scan of the head, neck have been ordered the images were reviewed in real time in the CT department, radiologic interpretation is pending. LABORATORY STUDIES: Results from trauma bay labs were drawn and are pending. * Annie Her CNP - 08/21/2023 5:09 PM EST [facility] TRAUMA TRAUMA EVALUATION / HISTORY AND PHYSICAL Closed traumatic displaced fracture of shaft of [...] was a GCS of 15, moving all extremities,endorsing pain to her right leg. She was [...] total) by mouth 2 (two) times a day. rosuvastatin (CRESTOR) 5 MG tablet Take 1 (one) tablet (5 mg total) by mouth every night at bedtime. scopolamine (TRANSDERM-SCOP) 1 mg over 3 days [...] use, family hx of clotting or bleeding disorders.+antiplatelet use. Allergic/Immunologic: Allergies reviewed, no use of [...] Pupils 3 mm equal and reactive bilaterally. [place] Coma Scale EYES (4-spont, 3-to verb stim, 2-to pain, 1-none) 4 VERBAL (5-oriented, 4-confused, 3-inappropriate, 2-incomprehensible, 1-none) 5 MOTOR (6-follows, 5-localizes, 4-withdraws, 3-flexion, 2-extension, 1-none) 6 GCS: 15 SECONDARY SURVEY General Appears age appropriate. HEENT Head normocephalic, PERRL, EOMI, mid face stable, tympanic membranes intact, no subconjunctival hemorrhage, nares patent bilaterally, no epistaxis, mouth clear of foreign bodies, no lacerationsor abrasions. Neck Cervical collar in place, no [...] adjunct testing were conducted in accordance with ATLSguidelines. The attending trauma surgeon Dr. Beck was present at bedside. IMAGING STUDIES: CXR/PXR obtained and reviewed in real time in the trauma bay CT scan of the head, neck have been ordered the images were reviewed in real time in the CT department, radiologic interpretation is pending. LABORATORY STUDIES: Results from trauma bay labs were drawn and are pending. Associated attestation - Patti Beck MD - 08/21/2023 5:19 PM EST Images from the original note were not included. ==== TRAUMA, CRITICAL CARE, AND ACUTE CARE SURGERY STAFF PHYSICIAN NOTE OF PERSONAL INVOLVEMENT IN CARE: Please link this note as an addendum to the ALFREDO note with the same day of service. The patient was seen and examined by me, the attending trauma surgeon, on multidisciplinary rounds on the date of service listed above. I have reviewed the ALFREDO note, labs, studies, and advisor consultant notes. I have reviewed and agree [...] bay obtained with R femur fx, will placein traction. Further imaging without further findings. This [...] Surgery, Surgical Critical Care, and Neurocritical Care ==== documented in this [id number] Note* [facility] - Kylah Pride, PT - 08/22/2023 8:08 AM EST PHYSICAL THERAPY VISIT VARIANCE NOTE Attempted to see patient at this time, but unable secondary to: Awaiting Medical Clearance (comment). Closed traumatic displaced fracture of shaft of right femur with routine healing Assessment & Plan Reduced and splinted. - pain control. - OR in [place] with yasmine. Will follow up as appropriate. [id number] Note* Quick Note - Mirella Burton LPN - 08/22/2023 6:38 AM EST Patient with emesis at this time [address]zojFodvws56-63-1188 Note* Quick Note - Mirella Burton LPN - 08/22/2023 6:09 AM EST Spoke with trauma alfredo as patient has nausea and would like regalan rather than zofran order given and med given [address]VpbjUnftgu02-55-8889 Note* Plan of Care - Mirella Burton LPN - 08/21/2023 10:05 PM EST Problem: Actual or potential alteration in health [...] Goal: Absence of falls Outcome: Partially Met [id number] Note* Quick Note - Mirella Burton LPN - 08/21/2023 9:18 PM EST Spoke with trauma alfredo and was given the ok to loosen the edwin bandage around patient ankle due to c/o pain and numbness to the area [id number] Note* Plan of Care - Kelley Garnett RN - 08/21/2023 6:38 PM EST Problem: Actual or potential alteration in health [...] by Kelley Garnett, RN Outcome: Partially Met Goal: Manage chronic pain 08/21/20231837 by Kelley Garnett RN Outcome: Partially Met 08/21/2023 174 by Kelley Garnett RN Outcome: Partially Met Goal: Reduced pain sensation 08/21/20231837 by Kelley Garnett RN Outcome: Partially Met 08/21/20231747 by Kelley Garnett RN Outcome: Partially Met Goal: Achievement of comfort function goal 08/21/20231837 by Kelley Garnett, ANDREINA Outcome: Partially [...] by Kelley Garnett RN Outcome: Partially Met [id number] Note* Plan of Care - Kelley Garnett RN - 08/21/2023 5:48 PM EST Problem: Actual or potential alteration in health [...] Absence of pressure ulcer Outcome: Partially Met [id number] History and physical note* Annie Her, TALISHA - 08/21/2023 5:09 PM EST WIRTZ TRAUMA TRAUMA EVALUATION / HISTORY AND PHYSICAL Closed traumatic displaced fracture of shaft of [...] was a GCS of 15, moving all extremities,endorsing pain to her right leg. She was [...] total) by mouth 2 (two) times a day. rosuvastatin (CRESTOR) 5 MG tablet Take 1 (one) tablet (5 mg total) by mouth every night at bedtime. scopolamine (TRANSDERM-SCOP) 1 mg over 3 days [...] use, family hx of clotting or bleeding disorders.+antiplatelet use. Allergic/Immunologic: Allergies reviewed, no use of [...] Pupils 3 mm equal and reactive bilaterally. [place] Coma Scale EYES (4-spont, 3-to verb stim, 2-to pain, 1-none) 4 VERBAL (5-oriented, 4-confused, 3-inappropriate, 2-incomprehensible, 1-none) 5 MOTOR (6-follows, 5-localizes, 4-withdraws, 3-flexion, 2-extension, 1-none) 6 GCS: 15 SECONDARY SURVEY General Appears age appropriate. HEENT Head normocephalic, PERRL, EOMI, mid face stable, tympanic membranes intact, no subconjunctival hemorrhage, nares patent bilaterally, no epistaxis, mouth clear of foreign bodies, no lacerationsor abrasions. Neck Cervical collar in place, no [...] adjunct testing were conducted in accordance with ATLSguidelines. The attending trauma surgeon Dr. Beck was present at bedside. IMAGING STUDIES: CXR/PXR obtained and reviewed in real time in the trauma bay CT scan of the head, neck have been ordered the images were reviewed in real time in the CT department, radiologic interpretation is pending. LABORATORY STUDIES: Results from trauma bay labs were drawn and are pending. Associated attestation - Patti Beck MD - 08/21/2023 5:19 PM EST Images from the original note were not included. ==== TRAUMA, CRITICAL CARE, AND ACUTE CARE SURGERY STAFF PHYSICIAN NOTE OF PERSONAL INVOLVEMENT IN CARE: Please link this note as an addendum to the ALFREDO note with the same day of service. The patient was seen and examined by me, the attending trauma surgeon, on multidisciplinary rounds on the date of service listed above. I have reviewed the ALFREDO note, labs, studies, and advisor consultant notes. I have reviewed and agree [...] bay obtained with R femur fx, will placein traction. Further imaging without further findings. This [...] Surgery, Surgical Critical Care, and Neurocritical Care ==== [id number] Evaluation + Plan note* Assessment & Plan Note - Annie Her CNP - 08/21/2023 5:09 PM ESTAssociated Problem(s): Fall . [id number] Evaluation + Plan note* Assessment & Plan Note - Annie Her CNP - 08/21/2023 5:09 PM ESTAssociated Problem(s): Closed traumatic displaced fracture of shaft of right femur with routine healing . [id number] Nurse procedure note* Sedation Documentation - Kilo Mar RN - 08/21/2023 4:29 PM EST Splint on and in place [id number] Nurse procedure note* Sedation Documentation - Kilo Mar RN - 08/21/2023 4:21 PM EST Xray at bedside. [id number] Nurse procedure note* Sedation Documentation - Kilo Mar RN - 08/21/2023 4:18 PM EST Attempting to reduce at this time. Xray called. [id number] Nurse procedure note* Sedation Documentation - Kilo Mar RN - 08/21/2023 4:18 PM EST Rt at bedside [id number] Emergency department Note* Kilo Mar RN - 08/21/2023 4:01 PM EST Hourly rounding assessment completed on the patient. [x] Patient updated on plan of care [x] All comfort needs addressed [x] Patient updated on duration of visit Pt continues to be nauseous at this time, notified Dr. Espinosa awaiting for orders at this time, pt A&Ox4, pt reports 2/10 pain. All questions answered, patient denies further needs. Call light within reach. [id number] Emergency department Note* Kilo Mar RN - 08/21/2023 4:01 PM EST Hourly rounding assessment completed on the patient. [x] Patient updated on plan of care [x] All comfort needs addressed [x] Patient updated on duration of visit Pt continues to be nauseous at this time, notified Dr. Espinosa awaiting for orders at this time, pt A&Ox4, pt reports 2/10 pain. All questions answered, patient denies further needs. Call light within reach. * Joyce Espinosa MD - 08/21/2023 3:14 PM ESTAssociated Order(s): Orthopedic Injury Treatment; Procedural Sedation [facility] PERIOP ATTENDING NOTE: NAME: Radha Baldwin CSN: [id number] 83 y.o. PCP: No, Physician History: Chief Complaint: Fall HPI: The history was obtained from the patient and EMS. Radha is a 83 y.o. female who presents toED by ambulance with a chief complaint of [...] total) by mouth 2 (two) times a day. rosuvastatin (CRESTOR) 5 MG tablet Take 1 (one) tablet (5 mg total) by mouth every night at bedtime. scopolamine (TRANSDERM-SCOP) 1 mg over 3 days [...] (!) 105 16 93 % -- -- 08/21/235 -- -- -- -- 16 -- -- [...] All other components within normal limits Narrative: [facility] has implemented the eGFR calculation [...] medications that I prescribed during the ED courseand/or recommended as an out-patient (including possible OTC [...] suspension 2,400 mg ( Oral Automatically Held 08/27/2300) polyethylene glycol (MIRALAX) powder 17 g ( Oral Automatically Held 08/27/23899) ascorbic acid (vitamin C) (VITAMIN C) tablet 500 mg ( Oral Automatically Held 08/27/232099) cholecalciferol (vitamin D3) tablet 1,000 Units ( Oral Automatically Held 08/27/232099) DULoxetine (CYMBALTA) DR capsule 20 mg ( Oral Automatically Held 08/25/23899) pantoprazole (PROTONIX) EC tablet 40 mg ( Oral Automatically Held 08/27/232099) atorvastatin (LIPITOR) tablet 10 mg ( Oral Automatically Held 08/27/232099) sucralfate (CARAFATE) tablet 1 g ( Oral Automatically Held 08/27/232099) vitamin E capsule 400 Units ( Oral Automatically Held 08/25/232099) acetaminophen (TYLENOL) tablet 650 mg ( Oral MAR Hold 08/22/23844) methocarbamoL (ROBAXIN) tablet 500 mg ( Oral MAR Hold 08/22/23844) oxyCODONE (ROXICODONE) immediate release tablet 5 mg ( Oral MAR Hold 08/22/23844) naloxone (NARCAN) injection 0.1 mg ( Intravenous [...] right leg is externally rotated and shortened andknee is flexed. There is a pain with [...] of shaft of right femur, initial encounter ([facility]) Disposition: ED Disposition ED Disposition Hospitalize Condition -- Comment Reason for inpatient over two midnights: surgery New Prescriptions This print group is not available in inpatient encounters. Please contact a supervisor sewer system. Joyce Espinosa MD ED Attending Physician [facility] Joyce Espinosa MD 08/22/23 1131 * Kilo Mar RN - 08/21/2023 3:12 PM EST Pt back from CT * Kilo Mar RN - 08/21/2023 2:53 PM EST Pt to CT * Kilo Mar RN - 08/21/2023 2:38 PM EST Xray at bedside. * Kilo Mar RN - 08/21/2023 2:36 PM EST 1 L NaCl hung * Kilo Mar RN - 08/21/2023 2:34 PM EST PSA GETTING VITALS AT THIS TIME. * Kilo Mar RN - 08/21/2023 2:31 PM EST PT CAME FROM HOME, BROUGHT BY EMS. PT FELL TRIPPED ON RUG, (+)PLAVIX, (-) LOC, DEFORMITY TO FEMUR, GIVEN ZOFRAN 4 MG, C COLLAR PLACED ON ARRIVAL. * Yecenia Cabral RN - 08/21/2023 2:30 PM EST Bed: 07 Expected date: Expected time: Means of arrival: Comments: neida * Kilo Mar RN - 08/21/2023 2:23 PM EST Trauma Activation Level: II Time of actvation: 1423 89 y.o. Unknown Sampling Theory Teacher: [facility] ED Attending Physician: DR. ESPINOSA documented in this [id number] Physician Emergency department Note* Joyce Espinosa MD - 08/21/2023 3:14 PM ESTAssociated Order(s): Orthopedic Injury Treatment; Procedural Sedation [facility] PERIOP ATTENDING NOTE: NAME: Radha Baldwin CSN: [id number] 83 y.o. PCP: No, Physician History: Chief Complaint: Fall HPI: The history was obtained from the patient and EMS. Radha is a 83 y.o. female who presents toED by ambulance with a chief complaint of [...] total) by mouth 2 (two) times a day. rosuvastatin (CRESTOR) 5 MG tablet Take 1 (one) tablet (5 mg total) by mouth every night at bedtime. scopolamine (TRANSDERM-SCOP) 1 mg over 3 days [...] (!) 105 16 93 % -- -- 08/21/23 2115 -- -- -- -- 16 -- -- [...] All other components within normal limits Narrative: [facility] has implemented the eGFR calculation [...] acute cardiopulmonary process. ST/ads Workstation ID: [id number] ED Fast Scan (Results Pending) XR OR [...] medications that I prescribed during the ED courseand/or recommended as an out-patient (including possible OTC [...] injection 4 mg (4 mg Intravenous Given 1/12/24 1457) HYDROmorphone (DILAUDID) injection 0.5 mg (0.5 [...] right leg is externally rotated and shortened andknee is flexed. There is a pain with [...] of shaft of right femur, initial encounter (HCC) Disposition: ED Disposition ED Disposition Hospitalize Condition -- Comment Reason for inpatient over two midnights: surgery New Prescriptions This print group is not available in inpatient encounters. Please contact a supervisor sewer system. Joyce Espinosa MD ED Attending Physician [facility] Joyce Espinosa MD 08/22/23 1131 [address]WqzsKeqplv37-17-4606 Emergency department Note* Kilo Mar RN - 08/21/2023 3:12 PM EST Pt back from CT [id number] Emergency department Note* Kilo Mar RN - 08/21/2023 2:53 PM EST Pt to CT [id number] Note* Quick Note - Patti Beck MD - 08/21/2023 2:40 PM EST ==== TRAUMA, CRITICAL CARE, AND ACUTE CARE SURGERY STAFF PHYSICIAN NOTE OF PERSONAL INVOLVEMENT IN CARE: Please link this note as an addendum to the ALFREDO note with the same day of service. The patient was seen and examined by me, the attending trauma surgeon, on multidisciplinary rounds on the date of service listed above. I have reviewed the ALFREDO note, labs, studies, and advisor consultant notes. I have reviewed and agree [...] bay obtained with R femur fx, will placein traction. Further imaging without further findings. This [...] for further details. Deric Beck MD, FACS, ANNETTAS, ANNETTAA Trauma, Acute Care Surgery, Surgical Critical Care, and Neurocritical Care ==== [facility] Work Phone: [phone]) 253-260201-12-2024 Emergency department Note* Kilo Mar RN - 08/21/2023 2:38 PM EST Xray at bedside. [id number] Emergency department Note* Kilo Mar RN - 08/21/2023 2:36 PM EST 1 L NaCl hung [id number] Emergency department Note* Kilo Mar RN - 08/21/2023 2:34 PM EST PSA GETTING VITALS AT THIS TIME. [id number] Emergency department Triage note* Kilo Mar RN - 08/21/2023 2:31 PM EST PT CAME FROM HOME, BROUGHT BY EMS. PT FELL TRIPPED ON RUG, (+)PLAVIX, (-) LOC, DEFORMITY TO FEMUR, GIVEN ZOFRAN 4 MG, C COLLAR PLACED ON ARRIVAL. [id number] Emergency department Note* Yecenia Cabral RN - 08/21/2023 2:30 PM EST Bed: 07 Expected date: Expected time: Means of arrival: Comments: neida [id number] Emergency department Note* Kilo Mar RN - 08/21/2023 2:23 PM EST Trauma Activation Level: II Time of actvation: 1423 89 y.o. Unknown Sampling Theory Teacher: [facility] ED Attending Physician: DR. ESPINOSA [id number] Instructions* Patient Instructions* Jonny Torres MD - 07/21/2023 12:15 AM EST BONE MINERAL DENSITY PATIENT INSTRUCTIONS Bone mineral density testing measures the amount of calcium in certain parts of your bones. This information determines how strong your bones are. The test is used to detect osteoporosis, a disease in which the bone's mineral content and density are low, increasing a person's risk of fractures. Thelumbar spine (lower back) and the hip are [...] your usual activities immediately. documented in this encounterF[facility]12-11-2023 History of Present illness Narrative* Jonny Torres MD - 07/20/2023 11:21 AM EST This note was created using Soteirariter. Subjective Radha Baldwin is a 83 year [...] Date CVA (cerebral vascular accident) (HCC) 06/02/2017 [facility] acute ischemic right posterior putamen stroke on MRI ASA, Plavix atorvastatin. Follow up with Dr. Witt scheduled. 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 May 2017; treated at [facility] Irritable bowel syndrome Osteoporosis, unspecified Stroke [...] tablet Dissolve 0.4mg tab (1tab) under tongue [id number] as needed for chest pain. If no response after max 3 tabs go to ED/notify doctor. fluticasone (FLONASE) 50 mcg/actuation nasal spray Use 1 [place] in each nostril once daily. For allergy season meclizine (ANTIVERT) 25 mg tab Take 2 tablets by mouth once daily as needed (dizziness/motion sickness). COMPOUNDED PRESCRIPTION Scopolamine 1.5 patch Apply first patch 4 hours to hairless area behind earprior to travel then change every 72 hour while traveling polypodium leucotomos extract (HELIOCARE ORAL) Take by mouth. BIOTIN ORAL Take by mouth once daily. (Patient not taking: Reported on 01/12/2023) SENNOSIDES/DOCUSATE SODIUM (SENOKOT-S ORAL) Take by mouth once daily. (Patient not taking: Reportedon 01/12/2023) aspirin, enteric coated (ASPIRIN, ENTERIC COATED) [...] F) Resp 12 Ht 157.5 cm (5' 2") Wt 57.2 kg (126 lb) SpO2 98% [...] as of this encounter: 157.5 cm (5' 2"). Weight as of this encounter: 57.2 kg [...] Density [facility] Jonny Torres MD documented in this encounterFult[facility]12-04-2023 Miscellaneous Notes* Telephone Encounter - Emilia Rand - 07/13/2023 3:08 PM EST 1st report of treatment/non oncology regimen. No assistance to support Reclast drug. No further assistance from FN at this time. documented in this encounterFulton [facility] Center12-04-2023 Miscellaneous Notes* Telephone Encounter - Jonny Torres MD - 07/13/2023 12:50 AM EST Order filed and appointment scheduled already documented in this [facility]11-29-2023 Miscellaneous Notes* Telephone Encounter - Merna Esteves - 07/08/2023 10:29 AM EST Spoke with pt and scheduled as directed * Telephone Encounter - Jonny Torres MD - 07/07/2023 9:06 PM EST Looks like there was another order when tried to file but cannot find another order anywhere else in records so filed this order * Telephone Encounter - April Onofre LPN - 07/07/2023 1:15 PM EST Awaiting treatment orders. April Onofre LPN * Telephone Encounter - Muriel Sierra RN - 07/07/2023 9:36 AM EST Patient calling to state she is due for her yearly Reclast Infusion. Asking if PCP would place treatment parameter orders so she can get this infusion scheduled soon? Pt states she has already completed labs needed prior to infusion. Please call pt with update. Thank you. documented in this [facility]10-30-2023 Miscellaneous Notes* Telephone Encounter - Lupe Martinez OCCA - 06/08/2023 8:26 AM EDT Patient has been identified by name and [...] Thank you. EVAN Vee. documented in this encounterFulton [facility] Center07-17-2023 Miscellaneous Notes* Telephone Encounter - Jonny Torres MD - 02/23/2023 7:00 PM EDT The following approved medication requests have been transmitted electronically. Requested Prescriptions Signed Prescriptions Disp Refills DULoxetine (CYMBALTA) 20 mg capsule 30 capsule 5 Sig: Take 1 capsule by mouth once daily. Authorizing Provider: JONNY TORRES MD * Telephone Encounter - Donna Donis LPN - 02/23/2023 3:52 PM EDT Last office visit: 01/12/23 Next appointment scheduled: 07/20/23 Patient phones requesting refills as follows: Requested Prescriptions Pending Prescriptions Disp Refills DULoxetine (CYMBALTA) 20 mg capsule 30 capsule 5 Sig: Take 1 capsule by mouth once daily. Please review and advise. Donna Donis LPN documented in this encounterFulton [facility] Center06-05-2023 Instructions* Patient Instructions* Jonny Torres MD - 01/12/2023 3:44 PM EDT Consider Theraworx for leg cramps. documented in this encounterFulton County [facility] Center06-05-2023 History of Present illness Narrative* Jonny Torres MD - 01/12/2023 3:14 PM EDT This note was created using Soteirariter. Subjective Radha Baldwin is a 82 year [...] Date CVA (cerebral vascular accident) (HCC) 06/02/2017 [facility] acute ischemic right posterior putamen stroke on MRI ASA, Plavix atorvastatin. Follow up with Dr. Witt scheduled. 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 May 2017; treated at [facility] Irritable bowel syndrome Osteoporosis, unspecified Stroke [...] tablet Dissolve 0.4mg tab (1tab) under tongue [id number] as needed for chest pain. If no response after max 3 tabs go to ED/notify doctor. fluticasone (FLONASE) 50 mcg/actuation nasal spray Use 1 [place] in each nostril once daily. For allergy season meclizine (ANTIVERT) 25 mg tab Take 2 tablets by mouth once daily as needed (dizziness/motion sickness). COMPOUNDED PRESCRIPTION Scopolamine 1.5 patch Apply first patch 4 hours to hairless area behind earprior to travel then change every 72 hour [...] sleep. Jonny Torres MD documented in this encounterFulton [facility] Center05-10-2023 Miscellaneous Notes* Telephone Encounter - Donna Donis LPN - 12/17/2022 1:46 PM EDT Last office visit: 05/23/22 Next appointment scheduled: 01/12/23 Patient phones requesting refills as follows: Requested Prescriptions Pending Prescriptions Disp Refills pantoprazole DR (PROTONIX) 40 mg tablet 60 tablet 11 Sig: Take 1 tablet by mouth twice daily. Take on empty stomach, 1/2 hr before meal. Please review and advise. Donna Donis LPN documented in this encounterFulton [facility] Center04-25-2023 Miscellaneous Notes* Telephone Encounter - Donna Donis LPN - 12/02/2022 8:53 AM EDT Last office visit: 05/23/22 Next appointment scheduled: 01/12/23 Last labs: 03/14/22 last LIPID Patient phones requesting refills as follows: Requested Prescriptions Pending Prescriptions Disp Refills atorvastatin (LIPITOR) 20 mg tablet 30 tablet 11 Sig: Take 1 tablet by mouth once daily. Please review and advise. Donna Donis LPN documented in this encounterFulton County [facility] Center01-23-2023 Miscellaneous Notes* Telephone Encounter - Ramana Badillo Ma - 09/01/2022 11:10 AM EST BLANCA: 05/23/2022 Last refill: 07/04/2022 QTY: 30 Refills: 1 * Telephone Encounter - Marcia Bradley Pss - 09/01/2022 10:59 AM EST Patient has been identified by name and date of : Yes Requested Prescriptions Pending Prescriptions Disp Refills DULoxetine (CYMBALTA) 20 mg capsule 30 capsule 5 Sig: Take 1 capsule by mouth once daily. RX INSTRUCTIONS: Please send today. She requested refills. Patient aware RX will be sent to pharmacy. No need to notify patient. Marcia Bradley Pss documented in this encounterFulton [facility] Center11-28-2022 Miscellaneous Notes* Telephone Encounter - Olive Schwarz Pss - 07/07/2022 10:47 AM EST Completed. * Telephone Encounter - Anusha Calle RN - 07/07/2022 8:56 AM EST PSS - please add lab appt on for 2:30 today (stat CMP)- patient is aware to come in at 2:30 for labs and 3:30 for treatment. documented in this [facility]11-08-2022 Nurse Note* Radha Johnson RN - 06/17/2022 12:00 PM EST Denies itching, alert and oriented, abdomen is described as 'sore' only. Reviewed followup appointment time and date with patient. * Radha Johnson RN - 06/17/2022 11:43 AM EST Patient awoke easily with verbal stimuli, denies itching at this time, reports abdomen is just sorein general, not a specific area, not cramping at this time. Will proceed with juice and snack at this time. * Radha Johnson RN - 06/17/2022 11:[address] Morse in room to review results of procedure with patient, she opens eyes, answers his questions, Reports her abdominal pain is general abdomen area, is a 4 on scale of 1 to 10, warm blanket applied to abdomen. Continues to rest comfortably at this time. * Radha Johnson RN - 06/17/2022 11:19 AM EST Arrived in phase II via cart left lateral position, eyes closed, skin warm and dry, eyes open to gentle tactile stimuli, respirations regular and unlabored. Abdomen is slightly distended, grimaces tolight palpation of abdomen. Too drowsy at this time to specify exactly where pain is. Continues to rest on left side comfortably. [facility] History and physical note * Orestes Jackson MD - 06/17/2022 9:15 AM EST Images from the original note were not included. HISTORY AND PHYSICAL Radha Baldwin 1940 REFERRING PHYSICIAN: Misael Lara APRN.4TH GRADE TEACHER CHIEF COMPLAINT: Consult (GERD, constipation, bloating) HPI: [...] Date CVA (cerebral vascular accident) (HCC) 06/02/2017 [facility] acute ischemic right posterior putamen stroke on MRI ASA, Plavix atorvastatin. Follow up with Dr. Witt scheduled. 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 May 2017; treated at [facility] Irritable bowel syndrome Osteoporosis, unspecified Thoracic [...] tablet Dissolve 0.4mg tab (1tab) under tongue [id number] as needed for chest pain. If no response after max 3 tabs go to ED/notify doctor. fluticasone (FLONASE) 50 mcg/actuation nasal spray Use 1 [place] in each nostril once daily. For allergy season meclizine (ANTIVERT) 25 mg tab Take 2 tablets by mouth once daily as needed (dizziness/motion sickness). COMPOUNDED PRESCRIPTION Scopolamine 1.5 patch Apply first patch 4 hours to hairless area behind earprior to travel then change every 72 hour [...] nurse and reviewed by me Nursing Notes: Roslaina Dupree LPN 04/08/2022 2:51 PM Signed REVIEW OF SYSTEMS: General: The patient denies fatigue, notes weight loss, denies weight gain, denies feeling hot, anddenies feelings of cold. Eyes: The patient denies [...] failure, other cardiac issues, notes claudication, denies coldfeet, denies peripheral arterial stent. Respiratory: The patient [...] patient's last Mammogram screening Last Colonoscopy: 2012 Rosalina Dupree LPN I have confirmed and edited as necessary, the PFSH and ROS obtained by others. Desiree Huang PA-C PHYSICAL EXAMINATION: General: The patient is 82 year old female, well nourished, well hydrated in no acute distress. Thepatient is oriented to time, place, and person. VITALS: Blood pressure 132/62, pulse 87, temperature 36.7 C (98 F), height 157.5 cm (5' 2"), .2 kg (124 lb), SpO2 97 %. Body mass index is 22.68 kg/m . HEENT: Normal cephalic, ataumatic, pupils are equally round, sclera are anicteric, mucous membranesare moist, oropharynx is clear. Neck has no [...] patient was offered a [facility]. I have counseled the patient [...] Change in bowel habits Consultation requested by Misael Lara CNP or an opinion regarding abdominal complaints. My final recommendations will be communicated back to the requesting physician by way of shared Medical record or letter to requesting physician via US mail. Desiree Huang PA-C documented in this encounterF[facility]10-31-2022 Miscellaneous Notes* Telephone Encounter - Misael Lara APRN.CNS - 06/09/2022 4:45 PM EDT Please schedule reclast infustion, she has an active order. documented in this encounterFult[facility]10-14-2022 Instructions* Patient Instructions* Jonny Torres MD - 05/23/2022 3:25 PM EDT May stop Effexor and start Cymbalta but if any issues feeling like not enough med, can overlap Effexor and Cymbalta for 3 to 7 days. documented in this encounterF[facility]10-14-2022 History of Present illness Narrative* Jonny Torres MD - 05/23/2022 3:13 PM EDT This note was created using NoteWriter. Subjective Radha Baldwin is a 82 year [...] Date CVA (cerebral vascular accident) (HCC) 06/02/2017 [facility] acute ischemic right posterior putamen stroke on MRI ASA, Plavix atorvastatin. Follow up with Dr. Witt scheduled. 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 May 2017; treated at [facility] Irritable bowel syndrome Osteoporosis, unspecified Thoracic [...] tablet Dissolve 0.4mg tab (1tab) under tongue [id number] as needed for chest pain. If no response after max 3 tabs go to ED/notify doctor. fluticasone (FLONASE) 50 mcg/actuation nasal spray Use 1 [place] in each nostril once daily. For allergy season meclizine (ANTIVERT) 25 mg tab Take 2 tablets by mouth once daily as needed (dizziness/motion sickness). COMPOUNDED PRESCRIPTION Scopolamine 1.5 patch Apply first patch 4 hours to hairless area behind earprior to travel then change every 72 hour [...] Height as of 04/08/22: 157.5 cm (5' 2"). Weight as of this encounter: 56.7 kg [...] sleep. Jonny Torres MD documented in this encounterFult[facility]08-31-2022 History of Present illness Narrative* Desiree Huang PA-C - 04/09/2022 3:49 PM EDT HISTORY AND PHYSICAL Radha Baldwin 1940 REFERRING PHYSICIAN: Misael Lara APRN.4TH GRADE TEACHER CHIEF COMPLAINT: Consult (GERD, constipation, bloating) HPI: [...] Date CVA (cerebral vascular accident) (HCC) 06/02/2017 [facility] acute ischemic right posterior putamen stroke on MRI ASA, Plavix atorvastatin. Follow up with Dr. Witt scheduled. 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 May 2017; treated at [facility] Irritable bowel syndrome Osteoporosis, unspecified Thoracic [...] tablet Dissolve 0.4mg tab (1tab) under tongue [id number] as needed for chest pain. If no response after max 3 tabs go to ED/notify doctor. fluticasone (FLONASE) 50 mcg/actuation nasal spray Use 1 [place] in each nostril once daily. For allergy season meclizine (ANTIVERT) 25 mg tab Take 2 tablets by mouth once daily as needed (dizziness/motion sickness). COMPOUNDED PRESCRIPTION Scopolamine 1.5 patch Apply first patch 4 hours to hairless area behind earprior to travel then change every 72 hour [...] nurse and reviewed by me Nursing Notes: Rosalina Dupree LPN 04/08/2022 2:51 PM Signed REVIEW OF SYSTEMS: General: The patient denies fatigue, notes weight loss, denies weight gain, denies feeling hot, anddenies feelings of cold. Eyes: The patient denies [...] failure, other cardiac issues, notes claudication, denies coldfeet, denies peripheral arterial stent. Respiratory: The patient [...] patient's last Mammogram screening Last Colonoscopy: 2012 Rosalina Dupree LPN I have confirmed and edited as necessary, the PFSH and ROS obtained by others. Desiree Huang PA-C PHYSICAL EXAMINATION: General: The patient is 82 year old female, well nourished, well hydrated in no acute distress. Thepatient is oriented to time, place, and person. VITALS: Blood pressure 132/62, pulse 87, temperature 36.7 C (98 F), height 157.5 cm (5' 2"), skdxei36.2 kg (124 lb), SpO2 97 %. Body mass index is 22.68 kg/m . HEENT: Normal cephalic, ataumatic, pupils are equally round, sclera are anicteric, mucous membranesare moist, oropharynx is clear. Neck has no [...] patient was [facility] a [facility]. I have counseled the patient [...] Change in bowel habits Consultation requested by Misael Lara CNP or an opinion regarding abdominal complaints. My final recommendations will be communicated back to the requesting physician by way of shared Medical record or letter to requesting physician via US mail. Desiree Huang PA-C documented in this encounterFult[facility]08-30-2022 Nurse Note* Rosalina Dupree LPN - 04/08/2022 2:49 PM EDT REVIEW OF SYSTEMS: General: The patient denies fatigue, notes weight loss, denies weight gain, denies feeling hot, anddenies feelings of cold. Eyes: The patient denies [...] failure, other cardiac issues, notes claudication, denies coldfeet, denies peripheral arterial stent. Respiratory: The patient [...] patient's last Mammogram screening Last Colonoscopy: 2012 Rosalina Dupree LPN documented in this encounterFult[facility]08-11-2022 History of Present illness Narrative* Misael Lara APRN.4TH GRADE TEACHER - 03/20/2022 7:[address] Jackson documented in this encounterFulton [facility] Center07-13-2022 History of Present illness Narrative* Janett Peacock APRN.ASSOCIATE PROPERTY MANAGER - 02/19/2022 12:07 PM EDT VIRTUAL VISIT PROGRESS NOTE This is a virtual visit using Twinklr video visit. It required patient-provider interaction for themedical decision making as documented below. Radha Baldwin is a 81 year old female seen for COVID concern. Today: Started not feeling well yesterday. Had a dull headache. Dry cough, runny nose. Fatigued. Home COVID test was positive this morning. The entire choir at her [employer] has been positive. No fever. Cough is mild. Tylenol has been helping her sx. HISTORY REVIEWED (electronic chart updated): PAST MEDICAL HISTORY Diagnosis Date CVA (cerebral vascular accident) (HCC) 06/02/2017 [facility] acute ischemic right posterior putamen stroke on MRI ASA, Plavix atorvastatin. Follow up with Dr. Witt scheduled. 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 May 2017; treated at [facility] Irritable bowel syndrome Osteoporosis, unspecified Thoracic [...] tablet Dissolve 0.4mg tab (1tab) under tongue [id number] as needed for chest pain. If no response after max 3 tabs go to ED/notify doctor. fluticasone (FLONASE) 50 mcg/actuation nasal spray Use 1 [place] in each nostril once daily. For allergy season meclizine (ANTIVERT) 25 mg tab Take 2 tablets by mouth once daily as needed (dizziness/motion sickness). COMPOUNDED PRESCRIPTION Scopolamine 1.5 patch Apply first patch 4 hours to hairless area behind earprior to travel then change every 72 hour [...] treatment. Janett Peacock APRN.CNP documented in this encounterFult[facility]06-27-2022 Miscellaneous Notes* Telephone Encounter - Misael Lara APRN.CNS - 02/03/2022 4:53 PM EDT Schedule with gastroenterology if so desires. Consider H2 sera, CT abd/pelvis if not feeling improved. documented in this encounterFult[facility]06-09-2022 History of Present illness Narrative* RT Lisseth(R) - 01/16/2022 9:15 AM EDT Radiology Service Progress Note PATIENT NAME: Radha Baldwin DATE OF SERVICE: January 16, 2022 TIME: 2:42 PM PATIENT IDENTITY VERIFICATION COMPLETED USING TWO (2) IDENTIFIERS: Name and Date of confirmedby patient verbally. FALL SCREENING: Has the patient [...] 16, 2022 2:42 PM documented in this encounterFulton [facility]06-07-2022 Instructions* Patient Instructions* Misael Lara APRN.CNS - 01/14/2022 2:18 PM EDT Take pantoprazole twice daily Take carafate before meals and at bedtime Complete RUQ ultrasound documented in this encounterFulton [facility]06-07-2022 History of Present illness Narrative* Misael Lara APRN.CNS - 01/14/2022 1:40 PM EDT Images from the original note were not [...] spinal compression fracture noted and treated at [facility]. Outpatientprocedure. MRI was completed at [facility]. Note she has been taking PPI once [...] tablet Dissolve 0.4mg tab (1tab) under tongue [id number] as needed for chest pain. If no response after max 3 tabs go to ED/notify doctor. fluticasone (FLONASE) 50 mcg/actuation nasal spray Use 1 [place] in each nostril once daily. For allergy season meclizine (ANTIVERT) 25 mg tab Take 2 tablets by mouth once daily as needed (dizziness/motion sickness). COMPOUNDED PRESCRIPTION Scopolamine 1.5 patch Apply first patch 4 hours to hairless area behind earprior to travel then change every 72 hour [...] Date CVA (cerebral vascular accident) (HCC) 06/02/2017 [facility] acute ischemic right posterior putamen stroke on MRI ASA, Plavix atorvastatin. Follow up with Dr. Witt scheduled. 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 May 2017; treated at [facility] Irritable bowel syndrome Osteoporosis, unspecified Thoracic [...] to 2 weeks consistently. Complete RUQ ultrasound Misael Lara APRN.CNS Medical Decision Making: Problems: Low: Acute, uncomplicated illness or injury Data: Unique test(s) ordered: 1 Risk: Moderate: Drug management Medical Decision Making Level: 3 - Low documented in this encounterFulton [facility]05-11-2022 Miscellaneous Notes* Telephone Encounter - Jonny Torres MD - 12/18/2021 6:25 PM EDT See MyChart reply * Telephone Encounter - Genny Madrid Ma - 12/17/2021 1:47 PM EDT Found form through care everywhere, printed and given to DR. Torres * Telephone Encounter - Mikaela Estrella LPN - 12/17/2021 11:45 AM EDT Pt wants to make sure provider reviews and comments on this. Contact Sagrario Garcia with 's message. Pt reports she has been talking to Nikkie at that office. Mikaela Estrella LPN documented in this encounterFulton [facility] Center04-26-2022 Instructions* Patient Instructions* Annie Abebe APRN.ASSOCIATE PROPERTY MANAGER - 12/03/2021 3:20 PM EDT R.I.C.E. The general care of your injury includes the following: Resting, Icing, Compressing and Elevating the injured area. Remember this as "RICE." REST: Limit the use of the injured body part. ICE: By applying ice to the affected area, swelling and pain can be reduced. Place some ice cubes in a re-sealable (Ziploc) bag and add some water. Put a thin washcloth between the bag and your skin.Apply the ice bag to the area for [...] pillows when lying down. documented in this encounterFulton [facility] Center04-26-2022 History of Present illness Narrative* Annie Abebe APRN.CNP - 12/03/2021 2:13 PM EDT Images from the original note were not included. This note was created using Soteirariter. Subjective Radhajp Baldwin is a 81 year old female. 81 year old female with PMH hyperlipidemia, GERD, and OA presents with complaints of injury s/p fall. Acute onset Thursday morning. States she was putting pants on while [...] she is an RN. Presents today citing " still so much pain " Denies inability to ambulate, saddle anesthesia, unilateral weakness, history of DM or IV drug usage. The history is provided by the patient. No language assistant was used. Fall The accident occurred more than 2 days ago. The fall occurred from a bed. She fell from a height of3 to 5 ft. She landed on carpet. [...] include no visual change, no fever, no numbness,no abdominal pain, no bowel incontinence, no nausea, [...] Date CVA (cerebral vascular accident) (HCC) 06/02/2017 [facility] acute ischemic right posterior putamen stroke on MRI ASA, Plavix atorvastatin. Follow up with Dr. Witt scheduled. 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 May 2017; treated at [facility] Irritable bowel syndrome Osteoporosis, unspecified Thoracic [...] tablet Dissolve 0.4mg tab (1tab) under tongue [id number] as needed for chest pain. If no response after max 3 tabs go to ED/notify doctor. fluticasone (FLONASE) 50 mcg/actuation nasal spray Use 1 [place] in each nostril once daily. For allergy season meclizine (ANTIVERT) 25 mg tab Take 2 tablets by mouth once daily as needed (dizziness/motion sickness). COMPOUNDED PRESCRIPTION Scopolamine 1.5 patch Apply first patch 4 hours to hairless area behind earprior to travel then change every 72 hour [...] tabs for 3 days, then 2 tabs for3 days then 1 tab for 3 days [...] choking, chest tightness, shortness of breath, wheezing andstridor. Cardiovascular: Negative for chest pain, palpitations and [...] kg (130 lb 9.6 oz) SpO2 99% BMI23.89 kg/m Physical Exam Vitals and nursing note [...] thoracic vertebra, unspecified fracture morphology, initial encounter ([facility]) - ICD9: 805.2, ICD10: S22.089A Related to fall No red flags RICE RX Prednisone and Flexeril Will follow up with her own ortho, Dr. Fabio Tatum CD and report of imaging copied for patient. - CONSULT TO ORTHOPAEDICS Annie Abebe APRN.CNP documented in this encounterFulton [facility] Center04-11-2022 History of Present illness Narrative* Jonny Torres MD - 11/18/2021 5:11 PM EDT This note was created using Soteirariter. Subjective Radha Baldwin is a 81 year [...] Date CVA (cerebral vascular accident) (HCC) 06/02/2017 [facility] acute ischemic right posterior putamen stroke on MRI ASA, Plavix atorvastatin. Follow up with Dr. Witt scheduled. 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 May 2017; treated at [facility] Irritable bowel syndrome Osteoporosis, unspecified Thoracic [...] tablet Dissolve 0.4mg tab (1tab) under tongue [id number] as needed for chest pain. If no response after max 3 tabs go to ED/notify doctor. fluticasone (FLONASE) 50 mcg/actuation nasal spray Use 1 [place] in each nostril once daily. For allergy season meclizine (ANTIVERT) 25 mg tab Take 2 tablets by mouth once daily as needed (dizziness/motion sickness). COMPOUNDED PRESCRIPTION Scopolamine 1.5 patch Apply first patch 4 hours to hairless area behind earprior to travel then change every 72 hour [...] Height as of 05/16/16: 157.5 cm (5' 2"). Weight as of this encounter: 61.7 kg [...] Abs Lymph 1.00 - 4.00 k/uL 1.61 Winkler% % 10.0 Abs Winkler <0.87 k/uL 0.81 Eosin% % 1.9 Abs [...] Level: 4 - Moderate documented in this encounterFulton [facility] Center10-05-2021 Miscellaneous Notes* Telephone Encounter - Tati Bermudez LPN - 05/14/2021 3:28 PM EDT Spoke with Spencer (pharmacist) looked at labs, does not need to be redrawn prior to Reclast infusion. Please schedule Reclast and notify pt. Tati Bermudez LPN * Telephone Encounter - Olive Schwarz Pss - 05/14/2021 9:12 AM EDT Patient scheduled and notified. Had labs drawn 05/03-please advise if they need drawn again prior toinfusion. * Telephone Encounter - Genny Madrid Ma - 05/10/2021 1:01 PM EDT Please assist with scheduling Reclast due in may documented in this encounterFulton [facility] Center10-24-2017 History of Past illness Narrative* Problem Noted Date Resolved Date CVA (cerebral vascular accident) 06/02/2017 07/12/2017 Overview: [facility] acute ischemic right posterior putamen stroke on MRI ASA, Plavix atorvastatin. Follow up with Dr. Witt scheduled. Benign neoplasm of skin of lower limb, including hip 02/28/2008 11/14/2015 Hemangioma of skin and subcutaneous tissue 03/2611/14/2015 Irritable bowel syndrome 016 documented as of this encounter (statuses as of 11/14/2021) [facility] of Past illness Narrative* Problem Noted Date Resolved Date CVA (cerebral vascular accident) 06/02/2017 07/12/2017 Overview: [facility] acute ischemic right posterior putamen stroke on MRI ASA, Plavix atorvastatin. Follow up with Dr. Witt scheduled. Benign neoplasm of skin of lower limb, including hip 02/28/2008 11/14/2015 Hemangioma of skin and subcutaneous tissue 03/2611/14/2015 Irritable bowel syndrome 016 documented as of this encounter (statuses as of 11/20/2021) [facility] of Past illness Narrative* Problem Noted Date Resolved Date CVA (cerebral vascular accident) 06/02/2017 07/12/2017 Overview: [facility] acute ischemic right posterior putamen stroke on MRI ASA, Plavix atorvastatin. Follow up with Dr. Witt scheduled. Benign neoplasm of skin of lower limb, including hip 02/28/2008 11/14/2015 Hemangioma of skin and subcutaneous tissue 03/2611/14/2015 Irritable bowel syndrome 016 documented as of this encounter (statuses as of 12/03/2021) [facility] of [facility] illness Narrative* Problem Noted Date Resolved Date CVA (cerebral vascular accident) 06/02/2017 07/12/2017 Overview: [facility] acute ischemic right posterior putamen stroke on MRI ASA, Plavix atorvastatin. Follow up with Dr. Witt scheduled. Benign neoplasm of skin of lower limb, including hip 02/28/2008 11/14/2015 Hemangioma of skin and subcutaneous tissue 03/2611/14/2015 Irritable bowel syndrome 016 documented as of this encounter (statuses as of 12/19/2021) [facility] of [facility] illness Narrative* Problem Noted Date Resolved Date CVA (cerebral vascular accident) 06/02/2017 07/12/2017 Overview: [facility] acute ischemic right posterior putamen stroke on MRI ASA, Plavix atorvastatin. Follow up with Dr. Witt scheduled. Benign neoplasm of skin of lower limb, including hip 02/28/2008 11/14/2015 Hemangioma of skin and subcutaneous tissue 03/2611/14/2015 Irritable bowel syndrome 016 documented as of this encounter (statuses as of 12/24/2021) [facility] illness Narrative* Problem Noted Date Resolved Date CVA (cerebral vascular accident) 06/02/2017 07/12/2017 Overview: [facility] acute ischemic right posterior putamen stroke on MRI ASA, Plavix atorvastatin. Follow up with Dr. Witt scheduled. Benign neoplasm of skin of lower limb, including hip 02/28/2008 11/14/2015 Hemangioma of skin and subcutaneous tissue 03/2611/14/2015 Irritable bowel syndrome 016 documented as of this encounter (statuses as of 01/14/2022) [facility] Narrative* Problem Noted Date Resolved Date CVA (cerebral vascular accident) 06/02/2017 07/12/2017 Overview: [facility] acute ischemic right posterior putamen stroke on MRI ASA, Plavix atorvastatin. Follow up with Dr. Witt scheduled. Benign neoplasm of skin of lower limb, including hip 02/28/2008 11/14/2015 Hemangioma of skin and subcutaneous tissue 03/2611/14/2015 Irritable bowel syndrome 016 documented as of this encounter (statuses as of 01/17/2022) [facility] Narrative* Problem Noted Date Resolved Date CVA (cerebral vascular accident) 06/02/2017 07/12/2017 Overview: [facility] acute ischemic right posterior putamen stroke on MRI ASA, Plavix atorvastatin. Follow up with Dr. Witt scheduled. Benign neoplasm of skin of lower limb, including hip 02/28/2008 11/14/2015 Hemangioma of skin and subcutaneous tissue 03/2611/14/2015 Irritable bowel syndrome 016 documented as of this encounter (statuses as of 02/03/2022) [facility] Narrative* Problem Noted Date Resolved Date CVA (cerebral vascular accident) 06/02/2017 07/12/2017 Overview: [facility] acute ischemic right posterior putamen stroke on MRI ASA, Plavix atorvastatin. Follow up with Dr. Witt scheduled. Benign neoplasm of skin of lower limb, including hip 02/28/2008 11/14/2015 Hemangioma of skin and subcutaneous tissue 03/2611/14/2015 Irritable bowel syndrome 016 documented as of this encounter (statuses as of 02/19/2022) [facility]2017 History of Past illness Narrative* Problem Noted Date Resolved Date CVA (cerebral vascular accident) 06/02/2017 07/12/2017 Overview: [facility] acute ischemic right posterior putamen stroke on MRI ASA, Plavix atorvastatin. Follow up with Dr. Witt scheduled. Benign neoplasm of skin of lower limb, including hip 02/28/2008 11/14/2015 Hemangioma of skin and subcutaneous tissue 03/2611/14/2015 Irritable bowel syndrome 016 documented as of this encounter (statuses as of 03/20/2022) [facility] History of Past illness Narrative* Problem Noted Date Resolved Date CVA (cerebral vascular accident) 06/02/2017 07/12/2017 Overview: [facility] acute ischemic right posterior putamen stroke on MRI ASA, Plavix atorvastatin. Follow up with Dr. Witt scheduled. Benign neoplasm of skin of lower limb, including hip 02/28/2008 11/14/2015 Hemangioma of skin and subcutaneous tissue 03/2611/14/2015 Irritable bowel syndrome 016 documented as of this encounter (statuses as of 04/09/2022) [facility] History of Past illness Narrative* Problem Noted Date Resolved Date CVA (cerebral vascular accident) 06/02/2017 07/12/2017 Overview: [facility] acute ischemic right posterior putamen stroke on MRI ASA, Plavix atorvastatin. Follow up with Dr. Witt scheduled. 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 Follow up with Dr. Witt scheduled. 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 Follow up with Dr. Witt scheduled. Benign neoplasm of skin of lower limb, including hip 02/28/2008 11/14/2015 Hemangioma of skin and subcutaneous tissue 03/2611/14/2015 Irritable bowel syndrome 016 documented as of this encounter (statuses as of 06/30/2022) [facility] History of Past illness Narrative* Problem Noted Date Resolved Date CVA (cerebral vascular accident) 06/02/2017 07/12/2017 Overview: [facility] acute ischemic right posterior putamen stroke on MRI ASA, Plavix atorvastatin. Follow up with Dr. Witt scheduled. Benign neoplasm of skin of lower limb, including hip 02/28/2008 11/14/2015 Hemangioma of skin and subcutaneous tissue 03/2611/14/2015 Irritable bowel syndrome 016 documented as of this encounter (statuses as of 07/04/2022) [facility] History of Past illness Narrative* Problem Noted Date Resolved Date CVA (cerebral vascular accident) 06/02/2017 07/12/2017 Overview: [facility] acute ischemic right posterior putamen stroke on MRI ASA, Plavix atorvastatin. Follow up with Dr. Witt scheduled. Benign neoplasm of skin of lower limb, including hip 02/28/2008 11/14/2015 Hemangioma of skin and subcutaneous tissue 03/2611/14/2015 Irritable bowel syndrome 016 documented as of this encounter (statuses as of 07/07/2022) [facility] History of Past illness Narrative* Problem Noted Date Resolved Date CVA (cerebral vascular accident) 06/02/2017 07/12/2017 Overview: [facility] acute ischemic right posterior putamen stroke on MRI ASA, Plavix atorvastatin. Follow up with Dr. Witt scheduled. Benign neoplasm of skin of lower limb, including hip 02/28/2008 11/14/2015 Hemangioma of skin and subcutaneous tissue 03/2611/14/2015 Irritable bowel syndrome 016 documented as of this encounter (statuses as of 07/07/2022) [facility] History of Past illness Narrative* Problem Noted Date Resolved Date CVA (cerebral vascular accident) 06/02/2017 07/12/2017 Overview: [facility] acute ischemic right posterior putamen stroke on MRI ASA, Plavix atorvastatin. Follow up with Dr. Witt scheduled. Benign neoplasm of skin of lower limb, including hip 02/28/2008 11/14/2015 Hemangioma of skin and subcutaneous tissue 03/2611/14/2015 Irritable bowel syndrome 016 documented as of this encounter (statuses as of 09/01/2022) [facility] History of Past illness Narrative* Problem Noted Date Resolved Date CVA (cerebral vascular accident) 06/02/2017 07/12/2017 Overview: [facility] acute ischemic right posterior putamen stroke on MRI ASA, Plavix atorvastatin. Follow up with Dr. Witt scheduled. Benign neoplasm of skin of lower limb, including hip 02/28/2008 11/14/2015 Hemangioma of skin and subcutaneous tissue 03/2611/14/2015 Irritable bowel syndrome 016 documented as of this encounter (statuses as of 12/02/2022) [facility] History of Past illness Narrative* Problem Noted Date Resolved Date CVA (cerebral vascular accident) 06/02/2017 07/12/2017 Overview: [facility] acute ischemic right posterior putamen stroke on MRI ASA, Plavix atorvastatin. Follow up with Dr. Witt scheduled. Benign neoplasm of skin of lower limb, including hip 02/28/2008 11/14/2015 Hemangioma of skin and subcutaneous tissue 03/2611/14/2015 Irritable bowel syndrome 016 documented as of this encounter (statuses as of 12/17/2022) [facility] History of Past illness Narrative* Problem Noted Date Resolved Date CVA (cerebral vascular accident) 06/02/2017 07/12/2017 Overview: [facility] acute ischemic right posterior putamen stroke on MRI ASA, Plavix atorvastatin. Follow up with Dr. Witt scheduled. Benign neoplasm of skin of lower limb, including hip 02/28/2008 11/14/2015 Hemangioma of skin and subcutaneous tissue 03/2611/14/2015 Irritable bowel syndrome 016 documented as of this encounter (statuses as of 02/11/2023) [facility] History of Past illness Narrative* Problem Noted Date Diagnosed Date Resolved Date CVA (cerebral vascular accident) 06/02/2017 07/12/2017 Overview: [facility] acute ischemic right posterior putamen stroke on MRI ASA, Plavix atorvastatin. Follow up with Dr. Witt scheduled. Benign neoplasm of skin of l ower limb, including hip 02/28/2008 11/14/2015 Hemangioma of skin and subcutaneous tissue 03/26/2006 11/14/2015 Irritable bowel syndrome 02/2016 documented as of this encounter (statuses as of 02/23/2023) [facility] History of Past illness Narrative* Problem Noted Date Diagnosed Date Resolved Date CVA (cerebral vascular accident) 06/02/2017 07/12/2017 Overview: [facility] acute ischemic right posterior putamen stroke on MRI ASA, Plavix atorvastatin. Follow up with Dr. Witt scheduled. Benign neoplasm of skin of l ower limb, including hip 02/28/2008 11/14/2015 Hemangioma of skin and subcutaneous tissue 03/26/2006 11/14/2015 Irritable bowel syndrome 02/2016 documented as of this encounter (statuses as of 02/24/2023) [facility] History of Past illness Narrative* Problem Noted Date Diagnosed Date Resolved Date CVA (cerebral vascular accident) 06/02/2017 07/12/2017 Overview: [facility] acute ischemic right posterior putamen stroke on MRI ASA, Plavix atorvastatin. Follow up with Dr. Witt scheduled. Benign neoplasm of skin of l ower limb, including hip 02/28/2008 11/14/2015 Hemangioma of skin and subcutaneous tissue 03/26/2006 11/14/2015 Irritable bowel syndrome 02/2016 documented as of this encounter (statuses as of 06/09/2023) [facility] History of Past illness Narrative* Problem Noted Date Diagnosed Date Resolved Date CVA (cerebral vascular accident) 06/02/2017 07/12/2017 Overview: [facility] acute ischemic right posterior putamen stroke on MRI ASA, Plavix atorvastatin. Follow up with Dr. Witt scheduled. Benign neoplasm of skin of l ower limb, including hip 02/28/2008 11/14/2015 Hemangioma of skin and subcutaneous tissue 03/26/2006 11/14/2015 Irritable bowel syndrome 02/2016 documented as of this encounter (statuses as of 06/14/2023) [facility] History of Past illness Narrative* Problem Noted Date Diagnosed Date Resolved Date CVA (cerebral vascular accident) 06/02/2017 07/12/2017 Overview: [facility] acute ischemic right posterior putamen stroke on MRI ASA, Plavix atorvastatin. Follow up with Dr. Witt scheduled. Benign neoplasm of skin of l ower limb, including hip 02/28/2008 11/14/2015 Hemangioma of skin and subcutaneous tissue 03/26/2006 11/14/2015 Irritable bowel syndrome 02/2016 documented as of this encounter (statuses as of 07/08/2023) [facility] History of Past illness Narrative* Problem Noted Date Diagnosed Date Resolved Date CVA (cerebral vascular accident) 06/02/2017 07/12/2017 Overview: [facility] acute ischemic right posterior putamen stroke on MRI ASA, Plavix atorvastatin. Follow up with Dr. Witt scheduled. Benign neoplasm of skin of l ower limb, including hip 02/28/2008 11/14/2015 Hemangioma of skin and subcutaneous tissue 03/26/2006 11/14/2015 Irritable bowel syndrome 02/2016 documented as of this encounter (statuses as of 07/13/2023) [facility] History of Past illness Narrative* Problem Noted Date Diagnosed Date Resolved Date CVA (cerebral vascular accident) 06/02/2017 07/12/2017 Overview: [facility] acute ischemic right posterior putamen stroke on MRI ASA, Plavix atorvastatin. Follow up with Dr. Witt scheduled. Benign neoplasm of skin of l ower limb, including hip 02/28/2008 11/14/2015 Hemangioma of skin and subcutaneous tissue 03/26/2006 11/14/2015 Irritable bowel syndrome 02/2016 documented as of this encounter (statuses as of 07/14/2023) [facility] History of Past illness Narrative* Problem Noted Date Diagnosed Date Resolved Date CVA (cerebral vascular accident) 06/02/2017 07/12/2017 Overview: [facility] acute ischemic right posterior putamen stroke on MRI ASA, Plavix atorvastatin. Follow up with Dr. Witt scheduled. Benign neoplasm of skin of l ower limb, including hip 02/28/2008 11/14/2015 Hemangioma of skin and subcutaneous tissue 03/26/2006 11/14/2015 Irritable bowel syndrome 02/2016 documented as of this encounter (statuses as of 07/21/2023) [facility] History of Past illness Narrative* Problem Noted Date Diagnosed Date Resolved Date CVA (cerebral vascular accident) 06/02/2017 07/12/2017 Overview: [facility] acute ischemic right posterior putamen stroke on MRI ASA, Plavix atorvastatin. Follow up with Dr. Witt scheduled. Benign neoplasm of skin of l ower limb, including hip 02/28/2008 11/14/2015 Hemangioma of skin and subcutaneous tissue 03/26/2006 11/14/2015 Irritable bowel syndrome 02/2016 documented as of this encounter (statuses as of 09/22/2023) [facility] History of Past illness Narrative* Problem Noted Date Diagnosed Date Resolved Date CVA (cerebral vascular accident) 06/02/2017 07/12/2017 Overview: [facility] acute ischemic right posterior putamen stroke on MRI ASA, Plavix atorvastatin. Follow up with Dr. Witt scheduled. Benign neoplasm of skin of l ower limb, including hip 02/28/2008 11/14/2015 Hemangioma of skin and subcutaneous tissue 03/26/2006 11/14/2015 Irritable bowel syndrome 02/2016 documented as of this encounter (statuses as of 10/01/2023) [facility] History of Past illness Narrative* Problem Noted Date Diagnosed Date Resolved Date CVA (cerebral vascular accident) 06/02/2017 07/12/2017 Overview: [facility] acute ischemic right posterior putamen stroke on MRI ASA, Plavix atorvastatin. Follow up with Dr. Witt scheduled. Benign neoplasm of skin of l ower limb, including hip 02/28/2008 11/14/2015 Hemangioma of skin and subcutaneous tissue 03/26/2006 11/14/2015 Irritable bowel syndrome 02/2016 documented as of this encounter (statuses as of 10/01/2023) [facility] note* Diagnosis Vitamin D deficiency- Primary Unspecified [...] use of medication documented in this encounter [facility] note* Diagnosis Fall, initial encounter- Primary Upper back pain Acute low back pain, unspecified back pain laterality, unspecified whether sciatica present Closed fracture of eleventh thoracic vertebra, unspecified fracture morphology, initial encounter ([facility]) documented in this encounter [facility] noteNo assessment information availableWChillic[facility] Work Phone: [facility] note* Diagnosis RUQ abdominal pain- Primary Abdominal pain, right upper quadrant Gastroesophageal reflux disease without esophagitis Esophageal reflux documented in this encounter [facility] note* Diagnosis RUQ abdominal pain Abdominal pain, right upper quadrant documented in this encounter [facility] note* Diagnosis Constipation, unspecified constipation type- Primary RUQ abdominal pain Abdominal pain, right upper quadrant Gastroesophageal reflux disease without esophagitis Esophageal reflux [facility] Diagnosis [facility]- [facility] Diagnosis Gastroesophageal reflux disease without esophagitis- Primary Esophageal reflux Constipation, unspecified constipation type [facility] Diagnosis Abdominal discomfort, generalized- Primary Abdominal pain, generalized Gastroesophageal reflux disease without esophagitis Esophageal reflux Constipation, unspecified constipation type Decreased energy Other malaise and fatigue Change in bowel habits Other symptoms involving digestive system [facility]* Diagnosis 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, subsequent encounter- Primary Recurrent major depressive disorder, in remission (HCC) Vitamin D deficiency Unspecified vitamin D deficiency Encounter for immunization Need for other specified prophylactic vaccination against single bacterial disease [facility] Diagnosis Recurrent major depressive disorder, in partial remission (HCC) [F33.41 (ICD-10-CM)]- Primary [facility]* Diagnosis Iron deficiency anemia, unspecified iron deficiency anemia type- Primary 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, subsequent encounter [facility] Diagnosis Recurrent major depressive disorder, in [...] healing, subsequent encounter [facility] Diagnosis Iron deficiency anemia, unspecified iron deficiency anemia type- Primary Generalized abdominal pain Abdominal pain, generalized Change in bowel habits Other symptoms involving digestive system Constipation, unspecified constipation type Bloating Flatulence, eructation, and gas pain [facility]* Diagnosis Age-related osteoporosis without current pathological fracture- Primary Senile osteoporosis [facility]* Diagnosis Age-related osteoporosis without current pathological fracture- Primary Senile osteoporosis Recurrent major depressive disorder, in full remission (HCC) Hyperlipidemia, unspecified hyperlipidemia type Vitamin D deficiency Unspecified vitamin D deficiency Encounter for long-term current use of medication Encounter for immunization Need for other specified prophylactic vaccination against single bacterial disease Asymptomatic postmenopausal status documented in this encounter [facility] note* Diagnosis Fall- Primary Unspecified fall Closed displaced oblique fracture of shaft of right femur, initial encounter ([facility]) Closed traumatic displaced fracture of shaft of right femur with routine healing Acute blood loss anemia Acute posthemorrhagic anemia documented in this encounter [facility] note* Diagnosis Closed displaced oblique fracture of shaft of right femur with routine healing, subsequent encounter- Primary documented in this encounter [facility] note* Diagnosis Onset Date Resolution Status Debility acute Depression acute GERD (gastroesophageal reflux disease) acute Right femoral fracture acute Stroke acute Vitamin D deficiency acute Hyperlipidemia chronic [facility] Work Phone: Evaluation note* Diagnosis Closed fracture of right femur with routine healing, unspecified fracture morphology, unspecified portion of femur, subsequent encounter- Primary Hypokalemia Hypopotassemia Burning sensation of feet Disturbance of skin sensation Debility Debility, unspecified documented in this encounter [facility] note* Diagnosis Closed displaced oblique fracture of shaft of right femur with routine healing, subsequent encounter- Primary documented in this encounter [facility] note* Diagnosis Closed displaced oblique fracture of shaft of right femur with routine healing, subsequent encounter- Primary documented in this encounter [facility] note* Diagnosis Hyperlipidemia, unspecified hyperlipidemia type- Primary Vitamin D deficiency Unspecified vitamin D deficiency Encounter for therapeutic drug monitoring IFG (impaired fasting glucose) Impaired fasting glucose documented in this encounter [facility] note* Diagnosis Hyperlipidemia, unspecified hyperlipidemia type documented in this encounter [facility] note* Diagnosis Hyperlipidemia, unspecified hyperlipidemia type- Primary Hypokalemia Hypopotassemia Vitamin D deficiency Unspecified vitamin D deficiency IFG (impaired fasting glucose) Impaired fasting glucose Closed fracture of right femur with routine healing, unspecified fracture morphology, unspecified portion of femur, subsequent encounter Age-related osteoporosis without current pathological fracture Senile osteoporosis Elevated alkaline phosphatase level Other nonspecific abnormal serum enzyme levels documented in this encounter [facility] note* Diagnosis Closed displaced oblique fracture of shaft of right femur with routine healing, subsequent encounter- Primary documented in this encounter [facility] note* Diagnosis Burning with urination- Primary Dysuria Urinary tract infection with hematuria, site unspecified documented in this encounter [facility] note* Diagnosis Fall, initial encounter Acute low back pain, unspecified back pain laterality, unspecified whether sciatica present Upper back pain [facility]* Diagnosis Gross hematuria- Primary Urinary tract infection with hematuria, site unspecified Dizziness Dizziness and giddiness Vitamin D deficiency Unspecified vitamin D deficiency [facility]* Diagnosis Burning sensation of feet- Primary Disturbance of skin sensation Recurrent major depressive disorder, in full remission ([facility]) Age-related osteoporosis with current pathological fracture, sequela Vitamin D deficiency Unspecified vitamin D deficiency Hypokalemia Hypopotassemia Hyperlipidemia, unspecified hyperlipidemia type Pain of left hip Encounter for immunization Need for other specified prophylactic vaccination against single bacterial disease Encounter for long-term current use of medication [facility]* Diagnosis Fall- Primary Unspecified fall Closed displaced oblique fracture of shaft of right femur, initial encounter ([facility]) Closed traumatic displaced fracture of shaft of right femur with routine healing Acute blood loss anemia Acute posthemorrhagic anemia Closed displaced oblique fracture of shaft of right femur with routine healing, subsequent encounter- Primary History of open reduction and internal fixation (ORIF) procedure documented in this encounter [facility] note* Diagnosis Concern about appearance of breast- Primary Mass of lower inner quadrant of left breast [facility] Diagnosis Concern about appearance of breast Mass of lower inner quadrant of left breast [facility]* Diagnosis Concern about appearance of breast Mass of lower inner quadrant of left breast [facility]* Diagnosis Breast asymmetry- Primary Other specified disorders of breast Other general symptoms and signs [facility]* Diagnosis Urinary frequency- Primary Urinary tract infection with hematuria, site unspecified [facility]* Diagnosis Dysuria- Primary [facility]* Diagnosis Breast asymmetry- Primary Other specified disorders of breast Dense breast tissue on mammogram, unspecified type Encounter for breast cancer screening using non-mammogram modality [facility]* Diagnosis Breast asymmetry Other specified disorders of breast Dense breast tissue on mammogram, unspecified type Encounter for breast cancer screening using non-mammogram modality [facility]* Diagnosis Hyperlipidemia, unspecified hyperlipidemia type [facility]* Diagnosis Burning sensation of feet Disturbance of skin sensation documented in this encounter [facility] note* Diagnosis Recurrent UTI (urinary tract infection)- Primary Urinary tract infection, site not specified [facility]* Diagnosis Dense breast tissue on mammogram, unspecified type- Primary Age-related osteoporosis with current pathological fracture, sequela Vitamin D deficiency Unspecified vitamin D deficiency Hyperlipidemia, unspecified hyperlipidemia type Primary osteoarthritis of right knee Primary localized osteoarthrosis, lower leg Contusion of right knee, sequela Burning sensation of feet Disturbance of skin sensation Encounter for long-term current use of medication [facility] Diagnosis Recurrent UTI- Primary Urinary tract infection, site not specified Urinary tract infection with hematuria, site unspecified [facility] Diagnosis Urinary tract infection with hematuria, site unspecified Recurrent UTI Urinary tract infection, site not specified documented in this encounter [facility] note* Diagnosis Age-related osteoporosis with current pathological fracture, sequela- Primary Vitamin D deficiency Unspecified vitamin D deficiency [facility] Diagnosis Age-related osteoporosis without current pathological fracture- Primary Senile osteoporosis documented in this encounter [facility] for referral (narrative)* Diagnostic Procedure Only (Routine) - Authorized Specialty Diagnoses / Procedures Referred By Richi epps Referred To Contact US IMAGING Diagnoses RUQ abdominal pain Procedures US ABD RT UPPER QUADRANT US ABDOMINAL REAL TIME W/IMAGE LIMITED Misael Lara APRN.4TH GRADE TEACHER [address] [place] [address] Us Imaging Referral ID Status Reason Start Date Expiration Date Visits Requested Visits Authorized [id number] Authorized Auto-Generat ed Referral 01/14/2022 02/13/2023 1 1 [facility] Diagnostic Procedure Only (Routine) - Closed Specialty Diagnoses / Procedures Referred By Richi epps Referred To Contact US IMAGING Diagnoses RUQ abdominal pain Procedures US ABD RT UPPER QUADRANT US ABDOMINAL REAL TIME W/IMAGE LIMITED Misael Lara APRN.CNS [address] [place] [address] Us Imaging Referral ID Status Reason Start Date Expiration Date V isits Requested Visits Authorized [id number] Closed Auto-Generate d Referral 01/14/2022 02/13/2023 1 1 [facility] for referral (narrative)* Outpatient Procedure (Routine) - Closed Specialty Diagnoses / Procedures Referred By Contac t Referred To Contact [facility] Diagnoses Generalized abdominal pain Change in bowel habits Constipation, unspecified constipation type Bloating Procedures EGD DIAGNOSTIC ESOPHAGOGASTRODUODENOSCO PY TRANSORAL DIAGNOSTIC Desiree Huang PA-C [address] [place] [address] [facility] [address] [address] Referral ID Status Reason Start Date Expiration Date V isits Requested Visits Authorized [id number] Closed Auto-Generate d Referral 04/09/2022 04/09/2023 1 1 * Outpatient Procedure (Routine) - Closed Specialty Diagnoses / Procedures Referred By Contac t Referred To Contact [facility] Diagnoses Generalized abdominal pain Change in bowel habits Constipation, unspecified constipation type Bloating Procedures COLONOSCOPY SCREENING COLONOSCOPY FLX DX W/COLLJ SPEC WHEN PFRMD Desiree Huang PA-C [address] [place] [address] [facility] [place] [address] Referral ID Status Reason Start Date Expiration Date V isits Requested Visits Authorized [id number] Closed Auto-Generate d Referral 04/09/2022 04/09/2023 1 1 [facility] for referral (narrative)* Diagnostic Procedure Only (Routine) - Pending Review Specialty Diagnoses / Procedures Referred By Contac t Referred To Contact XR IMAGING Diagnoses Asymptomatic postmenopausal status Procedures DXA-AXIAL SKELETON WITH VFA DXA BONE DENSITY STUDY AXIAL SKELETON Jonny Torres MD [address] [place] [address] [place] [address] Referral ID Status Reason Start Date Expiration Date Visits Requested Visits Authorized [id number] Pending Review Auto-Generat ed Referral 08/19/2024 1 1 [facility] for referral (narrative)* Diagnostic Procedure Only (Urgent) - Closed Specialty Diagnoses / Procedures Referred By Contac t Referred To Contact XR IMAGING Diagnoses Upper back pain Procedures XR THORACIC LIMITED 2V AP/LAT RADEX SPINE THORACIC 2 VIEWS Annie Abebe APRN.ASSOCIATE PROPERTY MANAGER [address] [phone] [place] [address] Referral ID Status Reason Start Date Expiration Date V isits Requested Visits Authorized [id number] Closed Auto-Generate d Referral 12/03/2021 01/02/2023 1 1 * Diagnostic Procedure Only (Urgent) - Closed Specialty Diagnoses / Procedures Referred By Contac t Referred To Contact XR IMAGING Diagnoses Acute low back pain, unspecified back pain laterality, unspecified whether sciatica present Procedures XR LUMBAR GENERAL 3V AP/LAT/L5-S1 RADEX SPINE LUMBOSACRAL 2/3 VIEWS Annie Abebe APRN.ASSOCIATE PROPERTY MANAGER [address] [place] [address] [place] [address] Referral ID Status Reason Start Date Expiration Date V isits Requested Visits Authorized [id number] Closed Auto-Generate d Referral 12/03/2021 01/02/2023 1 1 [facility] for referral (narrative)* Diagnostic Procedure Only (Routine) - Authorized Specialty Diagnoses / Procedures Referred By Contac t Referred To Contact BR IMAGING Diagnoses Concern about appearance of breast Mass of lower inner quadrant of left breast Procedures US BREAST LTD LEFT US BREAST UNI REAL TIME WITH IMAGE LIMITED Kenny Pandey APRN.ASSOCIATE PROPERTY MANAGER [address] [place] [address] [facility] [address] [place] [address] Referral ID Status Reason Start Date Expiration Date Visits Requested Visits Authorized [id number] Authorized Auto-Generat ed Referral 09/09/2024 10/09/2025 1 1 * Diagnostic Procedure Only (Routine) - Authorized Specialty Diagnoses / Procedures Referred By Contac t Referred To Contact BR [facility] Diagnoses Concern about appearance of breast Mass of lower inner quadrant of left breast Procedures JONA DIAGNOSTIC BILATERAL DIAGNOSTIC MAMMOGRAPHY COMPUTER-AIDED DETCJ Kenny Saleem APRN.ASSOCIATE PROPERTY MANAGER [address] [place] [address] [facility] [address] [place] [address] Referral ID Status Reason Start Date Expiration Date Visits Requested Visits Authorized [id number] Authorized Auto-Generat ed Referral 09/09/2024 10/09/2025 1 1 [facility] (narrative)No reason for referral information availableSelect [facility] Work Phone: Reason for visit Narrative* Outpatient Procedure (Routine) - Closed Specialty Diagnoses / Procedures Referred By Contac t Referred To Contact [facility] Diagnoses Generalized abdominal pain Change in bowel habits Constipation, unspecified constipation type Bloating Procedures EGD DIAGNOSTIC ESOPHAGOGASTRODUODENOSCO PY TRANSORAL DIAGNOSTIC Desiree Huang PA-C [address] [place] [address] [facility] [place] [address] [place] [address] Referral ID Status Reason Start Date Expiration Date V isits Requested Visits Authorized [id number] Closed Auto-Generate d Referral 04/09/2022 04/09/2023 1 1 [facility]* Diagnostic Procedure Only (Urgent) - Closed Specialty Diagnoses / Procedures Referred By Contac t Referred To Contact XR IMAGING Diagnoses Upper back pain Procedures XR THORACIC LIMITED 2V AP/LAT RADEX SPINE THORACIC 2 VIEWS Annie Abebe, SCIENTIST ENGINEER.ASSOCIATE PROPERTY MANAGER [address] [place] [address] [place] [address] Referral ID Status Reason Start Date Expiration Date V isits Requested Visits Authorized [id number] Closed Auto-Generate d Referral 12/03/2021 01/02/2023 1 1 [facility] for visit Narrative* Diagnostic Procedure Only (Routine) - Closed Specialty Diagnoses / Procedures Referred By Contac t Referred To Contact BR IMAG[facility] Diagnoses Concern about appearance of breast Mass of lower inner quadrant of left breast Procedures JONA DIAGNOSTIC BILATERAL DIAGNOSTIC MAMMOGRAPHY COMPUTER-AIDED DETCJ Kenny Saleem, SCIENTIST ENGINEER.ASSOCIATE PROPERTY MANAGER [address] [place] [address] Phone: tel: fax: [facility] [address] [place] [address] Referral ID Status Reason Start Date Expiration Date V isits Requested Visits Authorized [id number] Closed Auto-Generate d Referral 09/09/2024 10/09/2025 1 1 [facility] for visit Narrative* MRI/CT (Routine) - Closed Specialty Diagnoses / Procedures Referred By Richi epps Referred To Contact MR IMAGING Diagnoses Breast asymmetry Dense breast tissue on mammogram, unspecified type Encounter for breast cancer screening using non-mammogram modality Procedures MRI 3D POST PROCESSING 3D RENDERING W/INTERP&POSTPROC DIFF WORK STATION Misael Lara, SCIENTIST ENGINEER.4TH GRADE TEACHER [address] [place] [address] Phone: tel: fax: [place] [address] Referral ID Status Reason Start Date Expiration Date V isits Requested Visits Authorized [id number] Closed Auto-Generate d Referral 10/27/2024 11/26/2025 1 1 [facility] Summary Purpose Family History No Family History Records Found Relationship Condition Age at Onset Recorded Date/T anushka Not Specified Cardiac disease Unknown Relationship Condition Age at Onset Recorded Date/T anushka Not Specified Anxiety Unknown Cardiac disease Unknown Malignant melanoma Unknown Advance Directives No Advanced Directives Records Found Advance Directive Response Recorded Date/ Time Advance Directives Yes March 26, 2020 10:08am Living Will Yes June 16 10:14am Power of Public Health Teacher Yes June 16, 2021 10:14am Latest Code Status on File Code Status Date Activated Date Inactivated Comments DNRCC-Arrest 08/22/2023 1:01 PM 08/28/2023 4:32 PM Question Answer Comments Detail: No intubation Code Status History Code Status Date Activated Date Inactivated Comments Full Code 08/21/2023 4:02 PM 08/22/2023 1:01 PM Latest Code Status on File Code Status Date Activated Date Inactivated Comments DNRCC-Arrest 08/22/2023 1:01 PM 08/28/2023 4:32 PM Question Answer Comments Detail: No intubation Code Status History Code Status Date Activated Date Inactivated Comments Full Code 08/21/2023 4:02 PM 08/22/2023 1:01 PM Advance Directive Response Recorded Date/ Time Advance Directives Yes March 26, 2020 9:08am Living Will Yes September 02 10:00am Power of Public Health Teacher Yes September 02, 2023 10:00am Name of Medical Power of Public Health Teacher robert Moreau September 02, 2023 10:00am Date Activated Date Inactivated Comments 08/22/2023 1:01 PM 08/28/2023 4:32 PM Question Answer Comments Detail: No intubation Date Activated Date Inactivated Comments 08/21/2023 4:02 PM 08/22/2023 1:01 PM Advance Directive Response Recorded Date/ Time Advance Directives Yes March 26, 2020 10:08am Advance Directive Response Recorded Date/ Time Advance Directives Yes February 03 2:07pm Advance Directive Response Recorded Date/ Time Advance Directives Yes February 13 8:21am Reason for Referral Specialty Diagnoses / Procedures Referred By Contac t Referred To Contact Orthopedics Diagnoses Fall, initial encounter Closed fracture of eleventh thoracic vertebra, unspecified fracture morphology, initial encounter ([facility]) Procedures CONSULT TO ORTHOPAEDICS OFFICE/OUTPATIENT [facility] HIGH MDM 60-74 MINUTES Annie Abebe, SCIENTIST ENGINEER.ASSOCIATE PROPERTY MANAGER [address] [place] [address] Referral ID Status Reason Start Date Expiration Date Visits Requested Visits Authorized [id number] Authorized PCP Requested Referral 12/03/2021 12/03/2022 1 1 Specialty Diagnoses / Procedures Referred By Contac t Referred To Contact XR IMAGING Diagnoses Upper back pain Procedures XR THORACIC LIMITED 2V AP/LAT RADEX SPINE THORACIC 2 VIEWS Annie Abebe APRN.ASSOCIATE PROPERTY MANAGER [address] [place] [address] Xr Imaging Referral ID Status Reason Start Date Expiration Date V isits Requested Visits Authorized [id number] Closed Auto-Generate d Referral 12/03/2021 01/02/2023 1 1 Specialty Diagnoses / Procedures Referred By Contac t Referred To Contact XR IMAGING Diagnoses Acute low back pain, unspecified back pain laterality, unspecified whether sciatica present Procedures XR LUMBAR GENERAL 3V AP/LAT/L5-S1 RADEX SPINE LUMBOSACRAL 2/3 VIEWS Annie Abebe, TACO.ASSOCIATE PROPERTY MANAGER [address] [place] [address] Xr Imaging Referral ID Status Reason Start Date Expiration Date V isits Requested Visits Authorized [id number] Closed Auto-Generate d Referral 12/03/2021 01/02/2023 1 1 Specialty Diagnoses / Procedures Referred By Contac t Referred To Contact Gastroenterology Diagnoses Constipation, unspecified constipation type RUQ abdominal pain Gastroesophageal reflux disease without esophagitis Procedures CONSULT TO GASTROENTEROLOGY OFFICE/OUTPATIENT [facility] 60-74 MINUTES Misael Lara, SCIENTIST ENGINEER.4TH GRADE TEACHER [address] [id number] Referral ID Status Reason Start Date Expiration Date Visits Requested Visits Authorized [id number] Authorized PCP Requested Referral 02/03/2022 02/03/2023 1 1 Specialty Diagnoses / Procedures Referred By Contac t Referred To Contact General Surgery Diagnoses Gastroesophageal reflux disease without esophagitis Constipation, unspecified constipation type Procedures CONSULT TO GENERAL SURGERY OFFICE/OUTPATIENT [facility] 60-74 MINUTES Misael Lara, SCIENTIST ENGINEER.4TH GRADE TEACHER [address] [place] [address] Referral ID Status Reason Start Date Expiration Date Visits Requested Visits Authorized [id number] Authorized PCP Requested Referral 03/20/2022 03/20/2023 1 1 Specialty Diagnoses / Procedures Referred By Contac t Referred To Contact Rehabilitation Diagnoses Closed displaced oblique fracture of shaft of right femur, initial encounter ([facility]) Patti Beck MD [address] [place] [address] Referral ID Status Reason Start Date Expiration Date Visits Requested Visits Authorized [id number] Authorized Patient Preference 08/28/2023 08/27/2024 1 1 Chief Complaint and Reason for Visit Chief Complaint THORACIC KYPHOPLASTY Chief Complaint INTERNAL FIXATION RI GHT FEMUR BLOOD TRANSFUSION Reason for Visit Debility Depression GERD (gastroesophageal reflux disease) Right femoral fracture Stroke Vitamin D deficiency Hyperlipidemia Chief Complaint Admit Date THORACIC SPINE November 10, 2024 10:5 6am RM 1 November 10, 2024 11:1 5am LUMBAR DDD, SCOLIOSIS December 23, 2024 11: 02am THORACIC SPINE January 12, 2025 1:57p m Room 1 January 12, 2025 2:22p m Reason for Visit Admit Date Degenerative disc disease, lumbar November 10, 2024 10:56am Degenerative scoliosis November 10, 2024 1 0:56am Chief Complaint Admit Date THORACIC SPINE November 10, 2024 10:5 6am RM 1 November 10, 2024 11:1 5am LUMBAR DDD, SCOLIOSIS December 23, 2024 11: 02am THORACIC SPINE January 12, 2025 1:57p m Room 1 January 12, 2025 2:22p m knee pain- RIGHT KNEE February 03, 2025 2: 31pm R KNEE PAIN February 03, 2025 2:49 pm Reason for Visit Admit Date Degenerative disc disease, lumbar November 10, 2024 10:56am Degenerative scoliosis November 10, 2024 1 0:56am Degenerative disc disease, lumbar January 122024 1:57pm Degenerative scoliosis January 12, 2025 1: 57pm Lumbar stenosis with neurogenic claudica tion January 12, 2025 1:57pm T10 vertebral fracture January 12, 2025 1: 57pm Reason for Visit Admit Date Degenerative disc disease, lumbar November 10, 2024 10:56am Degenerative scoliosis November 10, 2024 1 0:56am Degenerative disc disease, lumbar January 122024 1:57pm Degenerative scoliosis January 12, 2025 1: 57pm Lumbar stenosis with neurogenic claudica tion January 12, 2025 1:57pm T10 vertebral fracture January 12, 2025 1: 57pm Contusion of right knee, initial encount er February 03, 2025 2:49pm Chief Complaint Admit Date THORACIC SPINE November 10, 2024 10:5 6am RM 1 November 10, 2024 11:1 5am LUMBAR DDD, SCOLIOSIS December 23, 2024 11: 02am THORACIC SPINE January 12, 2025 1:57p m Room 1 January 12, 2025 2:22p m knee pain- RIGHT KNEE February 03, 2025 2: 31pm R KNEE PAIN February 03, 2025 2:49 pm BILATERAL KNEES February 14, 2025 10:28 am RM 1 February 14, 2025 10:45 am Reason for Visit Admit Date Degenerative disc disease, lumbar November 10, 2024 10:56am Degenerative scoliosis November 10, 2024 1 0:56am Degenerative disc disease, lumbar January 122024 1:57pm Degenerative scoliosis January 12, 2025 1: 57pm Lumbar stenosis with neurogenic claudica tion January 12, 2025 1:57pm T10 vertebral fracture January 12, 2025 1: 57pm Contusion of right knee, initial encount er February 03, 2025 2:49pm Acute thigh pain February 14, 2025 10:28 am Contusion of right knee, initial encount er February 14, 2025 10:28am Lower extremity pain, right February 14 10:28am Osteoarthritis, localized, knee February 10:28am Chief Complaint Admit Date THORACIC SPINE November 10, 2024 10:5 6am RM 1 November 10, 2024 11:1 5am LUMBAR DDD, SCOLIOSIS December 23, 2024 11: 02am THORACIC SPINE January 12, 2025 1:57p m Room 1 January 12, 2025 2:22p m knee pain- RIGHT KNEE February 03, 2025 2: 31pm R KNEE PAIN February 03, 2025 2:49 pm BILATERAL KNEES February 14, 2025 10:28 am RM 1 February 14, 2025 10:45 am BILATERAL KNEES March 02, 2025 12:5 0pm Chief Complaint Admit Date LUMBAR DDD, SCOLIOSIS December 23, 2024 11: 02am THORACIC SPINE January 12, 2025 1:57p m Room 1 January 12, 2025 2:22p m knee pain- RIGHT KNEE February 03, 2025 2: 31pm R KNEE PAIN February 03, 2025 2:49 pm BILATERAL KNEES February 14, 2025 10:28 am RM 1 February 14, 2025 10:45 am BILATERAL KNEES March 02, 2025 12:5 0pm LEFT KNEE April 04, 2025 2: 12pm Reason for Visit Admit Date Degenerative disc disease, lumbar January 122024 1:57pm Degenerative scoliosis January 12, 2025 1: 57pm Lumbar stenosis with neurogenic claudica tion January 12, 2025 1:57pm T10 vertebral fracture January 12, 2025 1: 57pm Contusion of right knee, initial encount er February 03, 2025 2:49pm Acute thigh pain February 14, 2025 10:28 am Contusion of right knee, initial encount er February 14, 2025 10:28am Lower extremity pain, right February 14 10:28am Osteoarthritis, localized, knee February 10:28am Contusion of right knee, initial encount er March 02, 2025 12:50pm Osteoarthritis, localized, knee February 12:50pm Osteoarthritis, localized, knee March 112024 2:12pm Chief Complaint Admit Date LUMBAR DDD, SCOLIOSIS December 23, 2024 11: 02am THORACIC SPINE January 12, 2025 1:57p m Room 1 January 12, 2025 2:22p m knee pain- RIGHT KNEE February 03, 2025 2: 31pm R KNEE PAIN February 03, 2025 2:49 pm BILATERAL KNEES February 14, 2025 10:28 am RM 1 February 14, 2025 10:45 am BILATERAL KNEES March 02, 2025 12:5 0pm LEFT KNEE April 04, 2025 2: 12pm LEFT KNEE April 11, 2025 10:53am Chief Complaint Admit Date LUMBAR DDD, SCOLIOSIS December 23, 2024 11: 02am THORACIC SPINE January 12, 2025 1:57p m Room 1 January 12, 2025 2:22p m knee pain- RIGHT KNEE February 03, 2025 2: 31pm R KNEE PAIN February 03, 2025 2:49 pm BILATERAL KNEES February 14, 2025 10:28 am RM 1 February 14, 2025 10:45 am BILATERAL KNEES March 02, 2025 12:5 0pm LEFT KNEE April 04, 2025 2: 12pm LEFT KNEE April 11, 2025 10:53am LEFT KNEE April 18, 2025 11:07am Reason for Visit Admit Date Degenerative disc disease, lumbar January 122024 1:57pm Degenerative scoliosis January 12, 2025 1: 57pm Lumbar stenosis with neurogenic claudica tion January 12, 2025 1:57pm T10 vertebral fracture January 12, 2025 1: 57pm Contusion of right knee, initial encount er February 03, 2025 2:49pm Acute thigh pain February 14, 2025 10:28 am Contusion of right knee, initial encount er February 14, 2025 10:28am Lower extremity pain, right February 14 10:28am Osteoarthritis, localized, knee February 10:28am Contusion of right knee, initial encount er March 02, 2025 12:50pm Osteoarthritis, localized, knee February 12:50pm Osteoarthritis, localized, knee March 112024 2:12pm Osteoarthritis, localized, knee Septemb2024 10:53am Chief Complaint Admit Date THORACIC SPINE January 12, 2025 1:57p m Room 1 January 12, 2025 2:22p m knee pain- RIGHT KNEE February 03, 2025 2: 31pm R KNEE PAIN February 03, 2025 2:49 pm BILATERAL KNEES February 14, 2025 10:28 am RM 1 February 14, 2025 10:45 am BILATERAL KNEES March 02, 2025 12:5 0pm LEFT KNEE April 04, 2025 2: 12pm LEFT KNEE April 11, 2025 10:53am LEFT KNEE April 18, 2025 11:07am recurrent UTI May 05, 2025 1:48pm Reason for Visit Admit Date Degenerative disc disease, lumbar January 122024 1:57pm Degenerative scoliosis January 12, 2025 1: 57pm Lumbar stenosis with neurogenic claudica tion January 12, 2025 1:57pm T10 vertebral fracture January 12, 2025 1: 57pm Contusion of right knee, initial encount er February 03, 2025 2:49pm Acute thigh pain February 14, 2025 10:28 am Contusion of right knee, initial encount er February 14, 2025 10:28am Lower extremity pain, right February 14 10:28am Osteoarthritis, localized, knee February 10:28am Contusion of right knee, initial encount er March 02, 2025 12:50pm Osteoarthritis, localized, knee February 12:50pm Osteoarthritis, localized, knee March 112024 2:12pm Osteoarthritis, localized, knee Septembe r 2024 10:53am Osteoarthritis, localized, knee Septembe r 2024 11:07am UTI (urinary tract infection) May 05, 2025 1:48pm Medications Administered Section Inactive Administered Medications - [...] Date Dose Rate Site benzocaine 20% 1 [place] (TOPEX) 1 [place], TOPICAL, DIRECTED, Starting on Thu06/17/22 at 1030, [...] Given 06/17/2022 10:50 AM EST 25 mcg Given 06/17/2022 10:48 AM EST 25 mcg Given 06/17/2022 10:32 AM EST 50 mcg lactated ringers iv infusion 30 mL/hr, INTRAVENOUS, CONTINUOUS, Starting on Thu06/17/22 at 0900, Until Thu06/17/22 at 1121, Preprocedure New Bag/Syringe/Bottle 06/17/2022 10:54 AM EST 30 mL/hr 30 mL/hr midazolam (PF) 1-5 mg injection (VERSED) 1-5 mg, INTRAVENOUS, DIRECTED, Starting on Thu06/17/22 at 1030, Until Thu06/17/22 at 1429, DOSING DIRECTED BY PHYSICIAN FOR PROCEDURAL SEDATION ONLY, Intraprocedure Given 06/17/2022 10:50 AM EST 1 mg Given 06/17/2022 10:48 AM EST 1 mg Given 06/17/2022 10:32 AM EST 3 mg Additional Source Comments INFORMATION SOURCE (unrecogn ized section and content) DATE CREATED AUTHOR 02/02/2018 [facility] DATE CREATED AUTHOR AUTHOR'S ORGANIZ ATION 09/28/2023 [facility] DATE CREATED AUTHOR AUTHOR'S ORGANIZ ATION 08/21/2024 [facility] DATE CREATED AUTHOR AUTHOR'S ORGANIZ ATION 12/22/2024 [facility] DATE CREATED AUTHOR AUTHOR'S ORGANIZ ATION 04/15/2025 [facility] DATE CREATED AUTHOR AUTHOR'S ORGANIZ ATION 05/24/2025 [facility] Source Comments (unrecognize d section and content) In the event this informatio n is protected by the Federal Confidentiality of Alcohol and Drug Abuse Patient Records regulations: The Federal rules restrict any use of the information to criminally investigate or prosecute any alcohol or drug abuse patient.[facility] the event this information is protected by the Federal Confidentiality of Alcohol and Drug Abuse Patient Records regulations: The Federal rules restrict any use of the information to criminally investigate or prosecute any alcohol or drug abuse patient.[facility] the event this information is protected by the Federal Confidentiality of Alcohol and Drug Abuse Patient Records regulations: The Federal rules restrict any use of the information to criminally investigate or prosecute any alcohol or drug abuse patient.[facility] the event this information is protected by the Federal Confidentiality of Alcohol and Drug Abuse Patient Records regulations: The Federal rules restrict any use of the information to criminally investigate or prosecute any alcohol or drug abuse patient.[facility] the event this information is protected by the Federal Confidentiality of Alcohol and Drug Abuse Patient Records regulations: The Federal rules restrict any use of the information to criminally investigate or prosecute any alcohol or drug abuse patient.[facility] the event this information is protected by the Federal Confidentiality of Alcohol and Drug Abuse Patient Records regulations: The Federal rules restrict any use of the information to criminally investigate or prosecute any alcohol or drug abuse patient.[facility] CenterIn the event this information is protected by the Federal Confidentiality of Alcohol and Drug Abuse Patient Records regulations: The Federal rules restrict any use of the information to criminally investigate or prosecute any alcohol or drug abuse patient.[facility] CenterIn the event this information is protected by the Federal Confidentiality of Alcohol and Drug Abuse Patient Records regulations: The Federal rules restrict any use of the information to criminally investigate or prosecute any alcohol or drug abuse patient.[facility] CenterIn the event this information is protected by the Federal Confidentiality of Alcohol and Drug Abuse Patient Records regulations: The Federal rules restrict any use of the information to criminally investigate or prosecute any alcohol or drug abuse patient.[facility] CenterIn the event this information is protected by the Federal Confidentiality of Alcohol and Drug Abuse Patient Records regulations: The Federal rules restrict any use of the information to criminally investigate or prosecute any alcohol or drug abuse patient.[facility] CenterIn the event this information is protected by the Federal Confidentiality of Alcohol and Drug Abuse Patient Records regulations: The Federal rules restrict any use of the information to criminally investigate or prosecute any alcohol or drug abuse patient.[facility] CenterIn the event this information is protected by the Federal Confidentiality of Alcohol and Drug Abuse Patient Records regulations: The Federal rules restrict any use of the information to criminally investigate or prosecute any alcohol or drug abuse patient.[facility] CenterIn the event this information is protected by the Federal Confidentiality of Alcohol and Drug Abuse Patient Records regulations: The Federal rules restrict any use of the information to criminally investigate or prosecute any alcohol or drug abuse patient.[facility] CenterIn the event this information is protected by the Federal Confidentiality of Alcohol and Drug Abuse Patient Records regulations: The Federal rules restrict any use of the information to criminally investigate or prosecute any alcohol or drug abuse patient.[facility] CenterIn the event this information is protected by the Federal Confidentiality of Alcohol and Drug Abuse Patient Records regulations: The Federal rules restrict any use of the information to criminally investigate or prosecute any alcohol or drug abuse patient.[facility] CenterIn the event this information is protected by the Federal Confidentiality of Alcohol and Drug Abuse Patient Records regulations: The Federal rules restrict any use of the information to criminally investigate or prosecute any alcohol or drug abuse patient.[facility] CenterIn the event this information is protected by the Federal Confidentiality of Alcohol and Drug Abuse Patient Records regulations: The Federal rules restrict any use of the information to criminally investigate or prosecute any alcohol or drug abuse patient.[facility] CenterIn the event this information is protected by the Federal Confidentiality of Alcohol and Drug Abuse Patient Records regulations: The Federal rules restrict any use of the information to criminally investigate or prosecute any alcohol or drug abuse patient.[facility] CenterIn the event this information is protected by the Federal Confidentiality of Alcohol and Drug Abuse Patient Records regulations: The Federal rules restrict any use of the information to criminally investigate or prosecute any alcohol or drug abuse patient.[facility] CenterIn the event this information is protected by the Federal Confidentiality of Alcohol and Drug Abuse Patient Records regulations: The Federal rules restrict any use of the information to criminally investigate or prosecute any alcohol or drug abuse patient.[facility] CenterIn the event this information is protected by the Federal Confidentiality of Alcohol and Drug Abuse Patient Records regulations: The Federal rules restrict any use of the information to criminally investigate or prosecute any alcohol or drug abuse patient.[facility] CenterIn the event this information is protected by the Federal Confidentiality of Alcohol and Drug Abuse Patient Records regulations: The Federal rules restrict any use of the information to criminally investigate or prosecute any alcohol or drug abuse patient.[facility] CenterIn the event this information is protected by the Federal Confidentiality of Alcohol and Drug Abuse Patient Records regulations: The Federal rules restrict any use of the information to criminally investigate or prosecute any alcohol or drug abuse patient.[facility] CenterIn the event this information is protected by the Federal Confidentiality of Alcohol and Drug Abuse Patient Records regulations: The Federal rules restrict any use of the information to criminally investigate or prosecute any alcohol or drug abuse patient.[facility] CenterIn the event this information is protected by the Federal Confidentiality of Alcohol and Drug Abuse Patient Records regulations: The Federal rules restrict any use of the information to criminally investigate or prosecute any alcohol or drug abuse patient.[facility] CenterIn the event this information is protected by the Federal Confidentiality of Alcohol and Drug Abuse Patient Records regulations: The Federal rules restrict any use of the information to criminally investigate or prosecute any alcohol or drug abuse patient.[facility] CenterIn the event this information is protected by the Federal Confidentiality of Alcohol and Drug Abuse Patient Records regulations: The Federal rules restrict any use of the information to criminally investigate or prosecute any alcohol or drug abuse patient.[facility] CenterIn the event this information is protected by the Federal Confidentiality of Alcohol and Drug Abuse Patient Records regulations: The Federal rules restrict any use of the information to criminally investigate or prosecute any alcohol or drug abuse patient.[facility] CenterIn the event this information is protected by the Federal Confidentiality of Alcohol and Drug Abuse Patient Records regulations: The Federal rules restrict any use of the information to criminally investigate or prosecute any alcohol or drug abuse patient.[facility] CenterIn the event this information is protected by the Federal Confidentiality of Alcohol and Drug Abuse Patient Records regulations: The Federal rules restrict any use of the information to criminally investigate or prosecute any alcohol or drug abuse patient.[facility] CenterIn the event this information is protected by the Federal Confidentiality of Alcohol and Drug Abuse Patient Records regulations: The Federal rules restrict any use of the information to criminally investigate or prosecute any alcohol or drug abuse patient.[facility] CenterIn the event this information is protected by the Federal Confidentiality of Alcohol and Drug Abuse Patient Records regulations: The Federal rules restrict any use of the information to criminally investigate or prosecute any alcohol or drug abuse patient.[facility] CenterIn the event this information is protected by the Federal Confidentiality of Alcohol and Drug Abuse Patient Records regulations: The Federal rules restrict any use of the information to criminally investigate or prosecute any alcohol or drug abuse patient.[facility] CenterIn the event this information is protected by the Federal Confidentiality of Alcohol and Drug Abuse Patient Records regulations: The Federal rules restrict any use of the information to criminally investigate or prosecute any alcohol or drug abuse patient.[facility] CenterIn the event this information is protected by the Federal Confidentiality of Alcohol and Drug Abuse Patient Records regulations: The Federal rules restrict any use of the information to criminally investigate or prosecute any alcohol or drug abuse patient.[facility] CenterIn the event this information is protected by the Federal Confidentiality of Alcohol and Drug Abuse Patient Records regulations: The Federal rules restrict any use of the information to criminally investigate or prosecute any alcohol or drug abuse patient.[facility] CenterIn the event this information is protected by the Federal Confidentiality of Alcohol and Drug Abuse Patient Records regulations: The Federal rules restrict any use of the information to criminally investigate or prosecute any alcohol or drug abuse patient.[facility] CenterIn the event this information is protected by the Federal Confidentiality of Alcohol and Drug Abuse Patient Records regulations: The Federal rules restrict any use of the information to criminally investigate or prosecute any alcohol or drug abuse patient.[facility] CenterIn the event this information is protected by the Federal Confidentiality of Alcohol and Drug Abuse Patient Records regulations: The Federal rules restrict any use of the information to criminally investigate or prosecute any alcohol or drug abuse patient.[facility] CenterIn the event this information is protected by the Federal Confidentiality of Alcohol and Drug Abuse Patient Records regulations: The Federal rules restrict any use of the information to criminally investigate or prosecute any alcohol or drug abuse patient.[facility] CenterIn the event this information is protected by the Federal Confidentiality of Alcohol and Drug Abuse Patient Records regulations: The Federal rules restrict any use of the information to criminally investigate or prosecute any alcohol or drug abuse patient.[facility] CenterIn the event this information is protected by the Federal Confidentiality of Alcohol and Drug Abuse Patient Records regulations: The Federal rules restrict any use of the information to criminally investigate or prosecute any alcohol or drug abuse patient.[facility] CenterIn the event this information is protected by the Federal Confidentiality of Alcohol and Drug Abuse Patient Records regulations: The Federal rules restrict any use of the information to criminally investigate or prosecute any alcohol or drug abuse patient.[facility] CenterIn the event this information is protected by the Federal Confidentiality of Alcohol and Drug Abuse Patient Records regulations: The Federal rules restrict any use of the information to criminally investigate or prosecute any alcohol or drug abuse patient.[facility] CenterIn the event this information is protected by the Federal Confidentiality of Alcohol and Drug Abuse Patient Records regulations: The Federal rules restrict any use of the information to criminally investigate or prosecute any alcohol or drug abuse patient.[facility] CenterIn the event this information is protected by the Federal Confidentiality of Alcohol and Drug Abuse Patient Records regulations: The Federal rules restrict any use of the information to criminally investigate or prosecute any alcohol or drug abuse patient.[facility] CenterIn the event this information is protected by the Federal Confidentiality of Alcohol and Drug Abuse Patient Records regulations: The Federal rules restrict any use of the information to criminally investigate or prosecute any alcohol or drug abuse patient.[facility] CenterIn the event this information is protected by the Federal Confidentiality of Alcohol and Drug Abuse Patient Records regulations: The Federal rules restrict any use of the information to criminally investigate or prosecute any alcohol or drug abuse patient.[facility] CenterIn the event this information is protected by the Federal Confidentiality of Alcohol and Drug Abuse Patient Records regulations: The Federal rules restrict any use of the information to criminally investigate or prosecute any alcohol or drug abuse patient.[facility] CenterIn the event this information is protected by the Federal Confidentiality of Alcohol and Drug Abuse Patient Records regulations: The Federal rules restrict any use of the information to criminally investigate or prosecute any alcohol or drug abuse patient.[facility] CenterIn the event this information is protected by the Federal Confidentiality of Alcohol and Drug Abuse Patient Records regulations: The Federal rules restrict any use of the information to criminally investigate or prosecute any alcohol or drug abuse patient.[facility] CenterIn the event this information is protected by the Federal Confidentiality of Alcohol and Drug Abuse Patient Records regulations: The Federal rules restrict any use of the information to criminally investigate or prosecute any alcohol or drug abuse patient.[facility] CenterIn the event this information is protected by the Federal Confidentiality of Alcohol and Drug Abuse Patient Records regulations: The Federal rules restrict any use of the information to criminally investigate or prosecute any alcohol or drug abuse patient.[facility] CenterIn the event this information is protected by the Federal Confidentiality of Alcohol and Drug Abuse Patient Records regulations: The Federal rules restrict any use of the information to criminally investigate or prosecute any alcohol or drug abuse patient.[facility] CenterIn the event this information is protected by the Federal Confidentiality of Alcohol and Drug Abuse Patient Records regulations: The Federal rules restrict any use of the information to criminally investigate or prosecute any alcohol or drug abuse patient.[facility] CenterIn the event this information is protected by the Federal Confidentiality of Alcohol and Drug Abuse Patient Records regulations: The Federal rules restrict any use of the information to criminally investigate or prosecute any alcohol or drug abuse patient.[facility] CenterIn the event this information is protected by the Federal Confidentiality of Alcohol and Drug Abuse Patient Records regulations: The Federal rules restrict any use of the information to criminally investigate or prosecute any alcohol or drug abuse patient.[facility] CenterIn the event this information is protected by the Federal Confidentiality of Alcohol and Drug Abuse Patient Records regulations: The Federal rules restrict any use of the information to criminally investigate or prosecute any alcohol or drug abuse patient.[facility] CenterIn the event this information is protected by the Federal Confidentiality of Alcohol and Drug Abuse Patient Records regulations: The Federal rules restrict any use of the information to criminally investigate or prosecute any alcohol or drug abuse patient.[facility] CenterIn the event this information is protected by the Federal Confidentiality of Alcohol and Drug Abuse Patient Records regulations: The Federal rules restrict any use of the information to criminally investigate or prosecute any alcohol or drug abuse patient.[facility] CenterIn the event this information is protected by the Federal Confidentiality of Alcohol and Drug Abuse Patient Records regulations: The Federal rules restrict any use of the information to criminally investigate or prosecute any alcohol or drug abuse patient.[facility] CenterIn the event this information is protected by the Federal Confidentiality of Alcohol and Drug Abuse Patient Records regulations: The Federal rules restrict any use of the information to criminally investigate or prosecute any alcohol or drug abuse patient.[facility] CenterIn the event this information is protected by the Federal Confidentiality of Alcohol and Drug Abuse Patient Records regulations: The Federal rules restrict any use of the information to criminally investigate or prosecute any alcohol or drug abuse patient.[facility] CenterIn the event this information is protected by the Federal Confidentiality of Alcohol and Drug Abuse Patient Records regulations: The Federal rules restrict any use of the information to criminally investigate or prosecute any alcohol or drug abuse patient.[facility] CenterIn the event this information is protected by the Federal Confidentiality of Alcohol and Drug Abuse Patient Records regulations: The Federal rules restrict any use of the information to criminally investigate or prosecute any alcohol or drug abuse patient.[facility] CenterIn the event this information is protected by the Federal Confidentiality of Alcohol and Drug Abuse Patient Records regulations: The Federal rules restrict any use of the information to criminally investigate or prosecute any alcohol or drug abuse patient.[facility] CenterIn the event this information is protected by the Federal Confidentiality of Alcohol and Drug Abuse Patient Records regulations: The Federal rules restrict any use of the information to criminally investigate or prosecute any alcohol or drug abuse patient.[facility] CenterIn the event this information is protected by the Federal Confidentiality of Alcohol and Drug Abuse Patient Records regulations: The Federal rules restrict any use of the information to criminally investigate or prosecute any alcohol or drug abuse patient.[facility] Care Teams (unrecognized sec tion and content) Rubber Chemist Relationship Specialty Start Date End Date Jonny Torres MD [address] [place] [address] PCP - General Internal Medicine 04/07/17 Rubber Chemist Relationship Specialty Start Date End Date Jonny Torres MD [address] [place] [address] PCP - General Internal Medicine 04/07/17 Rubber Chemist Relationship Specialty Start Date End Date Jonny Torres MD [address] [place] [address] PCP - General Internal Medicine 04/07/17 Rubber Chemist Relationship Specialty Start Date End Date Jonny Torres MD [address] [place] [address] PCP - General Internal Medicine 04/07/17 Rubber Chemist Relationship Specialty Start Date End Date Jonny Torres MD [facility] [place] [address] PCP - General Internal Medicine 04/07/17 Rubber Chemist Relationship Specialty Start Date End Date Jonny Torres MD [address] [place] [address], [place] [address] PCP - General Internal Medicine 04/07/17 Rubber Chemist Relationship Specialty Start Date End Date Jonny Torres MD [address] [place] [address], [place] [address] PCP - General Internal Medicine 04/07/17 Rubber Chemist Relationship Specialty Start Date End Date Jonny Torres MD [address] [place] [address], [place] [address] PCP - General Internal Medicine 04/07/17 Rubber Chemist Relationship Specialty Start Date End Date Jonny Torres MD [address] [place] [address], [place] [address] PCP - General Internal Medicine 04/07/17 Rubber Chemist Relationship Specialty Start Date End Date Jonny Torres MD [address] [place] [address], [place] [address] PCP - General Internal Medicine 04/07/17 Rubber Chemist Relationship Specialty Start Date End Date Jonny Torres MD [address] [place] [address], [place] [address] PCP - General Internal Medicine 04/07/17 Rubber Chemist Relationship Specialty Start Date End Date Jonny Torres MD [address] [place] [address], [place] [address] PCP - General Internal Medicine 04/07/17 Rubber Chemist Relationship Specialty Start Date End Date Jonny Torres MD [address] [place] [address], [place] [address] PCP - General Internal Medicine 04/07/17 Rubber Chemist Relationship Specialty Start Date End Date Jonny Torres MD [address] [place] [address] PCP - General Internal Medicine 04/07/17 Rubber Chemist Relationship Specialty Start Date End Date Jonny Torres MD [address] [place] [address] PCP - General Internal Medicine 04/07/17 Rubber Chemist Relationship Specialty Start Date End Date Jonny Torres MD [address] [place] [address] PCP - General Internal Medicine 04/07/17 Rubber Chemist Relationship Specialty Start Date End Date Jonny Torres MD [address] [place] [address] PCP - General Internal Medicine 04/07/17 Rubber Chemist Relationship Specialty Start Date End Date Jonny Torres MD [address] [place] [address] PCP - General Internal Medicine 04/07/17 Rubber Chemist Relationship Specialty Start Date End Date Jonny Torres MD [address] [place] [address] PCP - General Internal Medicine 04/07/17 Rubber Chemist Relationship Specialty Start Date End Date Jonny Torres MD [address] [place] [address] PCP - General Internal Medicine 04/07/17 Rubber Chemist Relationship Specialty Start Date End Date Jonny Torres MD [address] [place] [address] PCP - General Internal Medicine 04/07/17 Rubber Chemist Relationship Specialty Start Date End Date Jonny Torres MD [address] [place], [place] [id number] PCP - General Internal Medicine 04/07/17 Rubber Chemist Relationship Specialty Start Date End Date Jonny Torres MD [address] [place], [place] [address] PCP - General Internal Medicine 04/07/17 Rubber Chemist Relationship Specialty Start Date End Date No, Physician [facility] PCP - General 08/21/23 Rubber Chemist Relationship Specialty Start Date End Date No, Physician [facility] PCP - General 08/21/23 Rubber Chemist Relationship Specialty Start Date End Date Jonny Torres MD [address] [place], [place] [id number] PCP - General Internal Medicine 04/07/17 Team Status: Active Member Role Status Dates Dr. Jonny Torres MD Family Provider Active Dr. Jonny Torres MD Primary Care Provider Active Team Status: Inactive Member Role Status Dates Dr. Jonny Torres MD Primary Care Provider Active Dr. Giovanni Martinez MD Admit Provider, At tending Provider, Referring Provider Active Team Status: Inactive Member Role Status Dates Dr. Jonny Torres MD Primary Care Provider Active Dr. Giovanni Martinez MD Attending Provider Active Rubber Chemist Relationship Specialty Start Date End Date Jonny Torres MD [address] [place], [place] [id number] PCP - General Internal Medicine 04/07/17 Rubber Chemist Relationship Specialty Start Date End Date Jonny Torres MD [address] [place], [place] [address] PCP - General Internal Medicine 04/07/17 Rubber Chemist Relationship Specialty Start Date End Date No, Physician [facility] PCP - General 08/21/23 Rubber Chemist Relationship Specialty Start Date End Date No, Physician [facility] PCP - General 08/21/23 Rubber Chemist Relationship Specialty Start Date End Date No, Physician [facility] PCP - General 08/21/23 Rubber Chemist Relationship Specialty Start Date End Date Jonny Torres MD [address] [place] [address] PCP - General Internal Medicine 04/07/17 Rubber Chemist Relationship Specialty Start Date End Date Jonny Torres MD [address] [place] [address] PCP - General Internal Medicine 04/07/17 Rubber Chemist Relationship Specialty Start Date End Date Jonny Torres MD [address] [place] [address] PCP - General Internal Medicine 04/07/17 Rubber Chemist Relationship Specialty Start Date End Date Jonny Torres MD [address] [place] [address] PCP - General Internal Medicine 04/07/17 Rubber Chemist Relationship Specialty Start Date End Date No, Physician [facility] PCP - General 08/21/23 Rubber Chemist Relationship Specialty Start Date End Date Jonny Torres MD [address] [place] [address] PCP - General Internal Medicine 04/07/17 Rubber Chemist Relationship Specialty Start Date End Date Jonny Torres MD [address] [place] [address] PCP - General Internal Medicine 04/07/17 Rubber Chemist Relationship Specialty Start Date End Date Jonny Torres MD [address] [place] [address] PCP - General Internal Medicine 04/07/17 Rubber Chemist Relationship Specialty Start Date End Date Jonny Torres MD [address] [place] [address] PCP - General Internal Medicine 04/07/17 Rubber Chemist Relationship Specialty Start Date End Date Jonny Torres MD [address] [place] [address] PCP - General Internal Medicine 04/07/17 Misael Lara, SCIENTIST ENGINEER.[employer] [address] [place] [address] Metal Milling Machine Operator Internal Medicine 07/18/24 Yulia Haywood SCIENTIST ENGINEER.ASSOCIATE PROPERTY MANAGER [address] [place] [address] Metal Milling Machine Operator Internal Medicine 07/18/24 Rubber Chemist Relationship Specialty Start Date End Date No, Physician [facility] PCP - General 08/21/23 Rubber Chemist Relationship Specialty Start Date End Date Jonny Torres MD [address] [place] [address] PCP - General Internal Medicine 04/07/17 Misael Lara, SCIENTIST ENGINEER.4TH GRADE TEACHER [address] [place] [address] Metal Milling Machine Operator Internal Medicine 07/18/24 Yulia Haywood SCIENTIST ENGINEER.ASSOCIATE PROPERTY MANAGER [address] [place] [address] Metal Milling Machine Operator Internal Medicine 07/18/24 Rubber Chemist Relationship Specialty Start Date End Date Jonny Torres MD [address] [facility] [place] [place] [address] PCP - General Internal Medicine 04/07/17 Misael Lara, SCIENTIST ENGINEER.4TH GRADE TEACHER [address] [facility] [place] [place] [address] Metal Milling Machine Operator Internal Medicine 07/18/24 Yulia Haywood SCIENTIST ENGINEER.ASSOCIATE PROPERTY MANAGER [address] [place] [address] Metal Milling Machine Operator Internal Medicine 07/18/24 Rubber Chemist Relationship Specialty Start Date End Date Jonny Torres MD [address] [place] [address] PCP - General Internal Medicine 04/07/17 Misael Lara, SCIENTIST ENGINEER.4TH GRADE TEACHER [address] [place] [address] Metal Milling Machine Operator Internal Medicine 07/18/24 Yulia Haywood SCIENTIST ENGINEER.ASSOCIATE PROPERTY MANAGER [address] [place] [address] Metal Milling Machine Operator Internal Medicine 07/18/24 Rubber Chemist Relationship Specialty Start Date End Date Jonny Torres MD [address] [facility] [place] [address] PCP - General Internal Medicine 04/07/17 Misael Lara, SCIENTIST ENGINEER.4TH GRADE TEACHER [address] [facility] [place] [place] [address] Metal Milling Machine Operator Internal Medicine 07/18/24 Yulia Haywood SCIENTIST ENGINEER.ASSOCIATE PROPERTY MANAGER [address] [place] [address] Metal Milling Machine Operator Internal Medicine 07/18/24 Rubber Chemist Relationship Specialty Start Date End Date Jonny Torres MD [address] [place] [address] PCP - General Internal Medicine 04/07/17 Misael Lara, SCIENTIST ENGINEER.4TH GRADE TEACHER [address] [place] [address] Metal Milling Machine Operator Internal Medicine 07/18/24 Yulia Haywood SCIENTIST ENGINEER.ASSOCIATE PROPERTY MANAGER [address] [place] [address] Metal Milling Machine Operator Internal Medicine 07/18/24 Rubber Chemist Relationship Specialty Start Date End Date Jonny Torres MD [address] [place] [address] PCP - General Internal Medicine 04/07/17 Misael Lara, SCIENTIST ENGINEER.4TH GRADE TEACHER [address] [place] [address] Metal Milling Machine Operator Internal Medicine 07/18/24 Yulia Haywood SCIENTIST ENGINEER.ASSOCIATE PROPERTY MANAGER [address] [place] [address] Metal Milling Machine Operator Internal Medicine 07/18/24 Rubber Chemist Relationship Specialty Start Date End Date Jonny Torres MD [address] [place] [address] PCP - General Internal Medicine 04/07/17 Misael Lara, SCIENTIST ENGINEER.4TH GRADE TEACHER [address] [place] [address] Metal Milling Machine Operator Internal Medicine 07/18/24 Yulia Haywood APRN.ASSOCIATE PROPERTY MANAGER [address] [place] [address] [facility] Internal Medicine 07/18/24 Rubber Chemist Relationship Specialty Start Date End Date Jonny Torres MD [address] [place] [address] PCP - General Internal Medicine 04/07/17 Misael Lara, SCIENTIST ENGINEER.4TH GRADE TEACHER [address] [place] [address] Metal Milling Machine Operator Internal Medicine 07/18/24 Yulia Haywood SCIENTIST ENGINEER.ASSOCIATE PROPERTY MANAGER [address] [place] [address] [facility] Internal Medicine 07/18/24 Rubber Chemist Relationship Specialty Start Date End Date Jonny Torres MD [address] [place] [address] PCP - General Internal Medicine 04/07/17 Misael Lara, SCIENTIST ENGINEER.4TH GRADE TEACHER [address] [place] [address] Metal Milling Machine Operator Internal Medicine 07/18/24 Yulia Haywood SCIENTIST ENGINEER.ASSOCIATE PROPERTY MANAGER [address] [place] [address] [facility] Internal Medicine 07/18/24 Rubber Chemist Relationship Specialty Start Date End Date Jonny Torres MD [address] [place] [address] PCP - General Internal Medicine 04/07/17 Misael Lara, SCIENTIST ENGINEER.4TH GRADE TEACHER [address] [facility] [place] [address] Metal Milling Machine Operator Internal Medicine 07/18/24 Yulia Haywood APRN.ASSOCIATE PROPERTY MANAGER [address] [facility] [place] [address] Metal Milling Machine Operator Internal Medicine 11/01/24 Rubber Chemist Relationship Specialty Start Date End Date Jonny Torres MD [address] [facility] [place] [address] PCP - General Internal Medicine 04/07/17 Misael Lara APRN.4TH GRADE TEACHER [address] [facility] [place] [address] Metal Milling Machine Operator Internal Medicine 07/18/24 Yulia Haywood APRN.ASSOCIATE PROPERTY MANAGER [address] [facility] [place] [place] [address] [facility] Internal Medicine 11/01/24 Rubber Chemist Relationship Specialty Start Date End Date Jonny Torres MD [address] [facility] [place] [address] PCP - General Internal Medicine 04/07/17 Misael Lara, SCIENTIST ENGINEER.4TH GRADE TEACHER [address] [facility] [place] [place] [address] [facility] Internal Medicine 07/18/24 Yulia Haywood APRN.ASSOCIATE PROPERTY MANAGER [address] [facility] [place] [address] Metal Milling Machine Operator Internal Medicine 07/18/24 10/28/24 Yulia Haywood APRN.ASSOCIATE PROPERTY MANAGER [address] [facility] [place] [place] [address] [facility] Internal Medicine 11/01/24 Rubber Chemist Relationship Specialty Start Date End Date Jonny Torres MD [address] [facility] [place] [address] PCP - General Internal Medicine 04/07/17 Misael Lara, SCIENTIST ENGINEER.4TH GRADE TEACHER [address] [facility] [place] [address] [facility] Internal Medicine 07/18/24 Yulia Hayowod APRN.ASSOCIATE PROPERTY MANAGER [address] [facility] [place] [address] [facility] Internal Medicine 07/18/24 10/28/24 Yulia Haywood SCIENTIST ENGINEER.ASSOCIATE PROPERTY MANAGER [address] [facility] [place] [address] [facility] Internal Medicine 11/01/24 Team Status: Active Member Role Status Dates Dr. Jonny Torres MD Primary Care Provider Active Team Status: Inactive Member Role Status Dates Dr. Jonny Torres MD Primary Care Provider Active Start: November 10, 2024 End: November 10, 2024 Dr. Jonny Torres MD Referring Provider Active Start: November 10, 2024 End: November 10, 2024 GEORGIANA Prabhakar Attending Provider Active Star t: November 10, 2024 End: November 10, 2024 Team Status: Inactive Member Role Status Dates Dr. Jonny Torres MD Primary Care Provider Active Start: November 10, 2024 End: November 10, 2024 Dr. Braulio Prince MD Attending Provider Active S tart: November 10, 2024 End: November 10, 2024 Team Status: Inactive Member Role Status Dates Dr. Jonny Torres MD Primary Care Provider Active Start: December 23, 2024 End: December 23, 2024 GEORGIANA Prabhakar Attending Provider Active Star t: December 23, 2024 End: December 23, 2024 GEORGIANA Prabhakar Referring Provider Active Star t: December 23, 2024 End: December 23, 2024 Team Status: Inactive Member Role Status Dates Dr. Jonny Torres MD Primary Care Provider Active Start: January 12, 2025 End: January 12, 2025 Dr. Jonny Torres MD Referring Provider Active Start: January 12, 2025 End: January 12, 2025 GEORGIANA Prabhakar Attending Provider Active Star t: January 12, 2025 End: January 12, 2025 Team Status: Inactive Member Role Status Dates Dr. Jonny Torres MD Primary Care Provider Active Start: January 12, 2025 End: January 12, 2025 Dr. Braulio Prince MD Attending Provider Active S tart: January 12, 2025 End: January 12, 2025 Team Status: Active Member Role Status Dates Dr. Jonny Torres MD Primary Care Provider Active Start: January 12, 2025 Dr. Jonny Torres MD Referring Provider Active Start: January 12, 2025 GEORGIANA Prabhakar Attending Provider Active Star t: January 12, 2025 Rubber Chemist Relationship Specialty Start Date End Date Jonny Torres MD [address] [place] [address] PCP - General Internal Medicine 04/07/17 Yulia Haywood, SCIENTIST ENGINEER.ASSOCIATE PROPERTY MANAGER [address] [place], [place] [address] Metal Milling Machine Operator Internal Medicine 11/01/24 Misael Lraa, SCIENTIST ENGINEER.4TH GRADE TEACHER [address] [place], [place] [address] Metal Milling Machine Operator Internal Medicine 12/28/24 Rubber Chemist Relationship Specialty Start Date End Date Jonny Torres MD [address] [place], [place] [address] PCP - General Internal Medicine 04/07/17 Misael Lara, SCIENTIST ENGINEER.4TH GRADE TEACHER [address] [place], [place] [address] [facility] Internal Medicine 07/18/24 12/27/24 Yulia Haywood, SCIENTIST ENGINEER.ASSOCIATE PROPERTY MANAGER [address] [place], [place] [address] [facility] Internal Medicine 11/01/24 Misael Lara, SCIENTIST ENGINEER.4TH GRADE TEACHER [address] [place] [address] [facility] Internal Medicine 12/28/24 Team Status: Active Member Role/Relationship Status Dates Dr. Jonny Torres MD Primary Care Provider Active Team Status: Inactive Member Role/Relationship Status Dates Dr. Jonny Torres MD Primary Care Provider Active Start: November 10, 2024 End: November 10, 2024 Dr. Jonny Torres MD Referring Provider Active Start: November 10, 2024 End: November 10, 2024 GEORGIANA Prabhakar Attending Provider Active Star t: November 10, 2024 End: November 10, 2024 Team Status: Inactive Member Role/Relationship Status Dates Dr. Jonny Torres MD Primary Care Provider Active Start: November 10, 2024 End: November 10, 2024 Dr. Braulio Prince MD Attending Provider Active S tart: November 10, 2024 End: November 10, 2024 Team Status: Inactive Member Role/Relationship Status Dates Dr. Jonny Torres MD Primary Care Provider Active Start: December 23, 2024 End: December 23, 2024 GEORGIANA Prabhakar Attending Provider Active Star t: December 23, 2024 End: December 23, 2024 GEORGIANA Prabhakar Referring Provider Active Star t: December 23, 2024 End: December 23, 2024 Team Status: Inactive Member Role/Relationship Status Dates Dr. Jonny Torres MD Primary Care Provider Active Start: January 12, 2025 End: January 12, 2025 Dr. Jonny Torres MD Referring Provider Active Start: January 12, 2025 End: January 12, 2025 GEORGIANA Prabhakar Attending Provider Active Star t: January 12, 2025 End: January 12, 2025 Team Status: Inactive Member Role/Relationship Status Dates Dr. Jonny Torres MD Primary Care Provider Active Start: January 12, 2025 End: January 12, 2025 Dr. Braulio Prince MD Attending Provider Active S tart: January 12, 2025 End: January 12, 2025 Team Status: Active Member Role/Relationship Status Dates Dr. Jonny Torres MD Primary Care Provider Active Start: February 03, 2025 GEORGIANA Abbasi Attending Provider Active Sta rt: February 03, 2025 GEORGIANA Abbasi Referring Provider Active Sta rt: February 03, 2025 Team Status: Inactive Member Role/Relationship Status Dates Dr. Jonny Torres MD Primary Care Provider Active Start: February 03, 2025 End: February 03, 2025 Dr. Jonny Torres MD Referring Provider Active Start: February 03, 2025 End: February 03, 2025 Ray STONER PA Attending Provider Active Sta rt: February 03, 2025 End: February 03, 2025 Team Status: Inactive Member Role/Relationship Status Dates Dr. Jonny Torres MD Primary Care Provider Active Start: February 03, 2025 End: February 03, 2025 GEORGIANA Abbasi Attending Provider Active Sta rt: February 03, 2025 End: February 03, 2025 Ray STONER PA Referring Provider Active Sta rt: February 03, 2025 End: February 03, 2025 Team Status: Active Member Role/Relationship Status Dates Dr. Jonny Torres MD Primary Care Provider Active Start: February 14, 2025 Dr. Jonny Torres MD Referring Provider Active Start: February 14, 2025 ANAND Stern Attending Provider Active Start: February 14, 2025 Team Status: Inactive Member Role/Relationship Status Dates Dr. Jonny Torres MD Primary Care Provider Active Start: February 14, 2025 End: February 14, 2025 Dr. Braulio Prince MD Attending Provider Active S tart: February 14, 2025 End: February 14, 2025 Team Status: Inactive Member Role/Relationship Status Dates Dr. Jonny Torres MD Primary Care Provider Active Start: February 14, 2025 End: February 14, 2025 Dr. Jonny Torres MD Referring Provider Active Start: February 14, 2025 End: February 14, 2025 Sofia Yoon NP-C Attending Provider Active Start: February 14, 2025 End: February 14, 2025 Rubber Chemist Relationship Specialty Start Date End Date Jonny Torres MD [address] [facility] [place] [place] [address] PCP - General Internal Medicine 04/07/17 Yulia Haywood APRN.ASSOCIATE PROPERTY MANAGER [address] [facility] [place] [place] [address] Metal Milling Machine Operator Internal Medicine 11/01/24 Misael Lara, SCIENTIST ENGINEER.4TH GRADE TEACHER [address] [facility] [place] [address] Metal Milling Machine Operator Internal Medicine 12/28/24 Rubber Chemist Relationship Specialty Start Date End Date Jonny Torres MD [address] [facility] [place] [address] PCP - General Internal Medicine 04/07/17 Yulia Haywood SCIENTIST ENGINEER.ASSOCIATE PROPERTY MANAGER [address] [facility] [place] [address] Metal Milling Machine Operator Internal Medicine 11/01/24 Misael Lara SCIENTIST ENGINEER.4TH GRADE TEACHER [address] [facility] [place] [place] [address] Metal Milling Machine Operator Internal Medicine 12/28/24 Rubber Chemist Relationship Specialty Start Date End Date Jonny Torres MD [address] [facility] [place] [address] PCP - General Internal Medicine 04/07/17 Yulia Haywood APRN.ASSOCIATE PROPERTY MANAGER [address] [place] [address] Metal Milling Machine Operator Internal Medicine 11/01/24 Misael Lara, TACO.4TH GRADE TEACHER [address] [facility] [place] [address] Metal Milling Machine Operator Internal Medicine 12/28/24 Team Status: Inactive Member Role/Relationship Status Dates Dr. Jonny Torres MD Primary Care Provider Active Start: March 02, 2025 End: March 02, 2025 Dr. Jonny Torres MD Referring Provider Active Start: March 02, 2025 End: March 02, 2025 ROBB SternC Attending Provider Active Start: March 02, 2025 End: March 02, 2025 Rubber Chemist Relationship Specialty Start Date End Date Jonny Torres MD [address] [facility] [place] [address] PCP - General Internal Medicine 04/07/17 Yuila Haywood APRN.ASSOCIATE PROPERTY MANAGER [address] [facility] [place] [address] Metal Milling Machine Operator Internal Medicine 11/01/24 Misael Lara, SCIENTIST ENGINEER.4TH GRADE TEACHER [address] [facility] [place] [address] [facility] Internal Medicine 12/28/24 Rubber Chemist Relationship Specialty Start Date End Date Jonny Torres MD [address] [facility] [place] [address] PCP - General Internal Medicine 04/07/17 Yulia Haywood APRN.ASSOCIATE PROPERTY MANAGER [address] [facility] [place] [address] Metal Milling Machine Operator Internal Medicine 11/01/24 Misael Lara APRN.4TH GRADE TEACHER [address] [place] [address] Metal Milling Machine Operator Internal Medicine 12/28/24 Rubber Chemist Relationship Specialty Start Date End Date Jonny Torres MD [address] [facility] [place] [address] PCP - General Internal Medicine 04/07/17 Yulia Haywood APRN.ASSOCIATE PROPERTY MANAGER [address] [facility] [place] [address] Metal Milling Machine Operator Internal Medicine 11/01/24 Misael Lara APRN.4TH GRADE TEACHER [address] [facility] [place] [address] Metal Milling Machine Operator Internal Medicine 12/28/24 Rubber Chemist Relationship Specialty Start Date End Date Jonny Torres MD [address] [place] [address] PCP - General Internal Medicine 04/07/17 Yulia Haywood APRN.ASSOCIATE PROPERTY MANAGER [address] [facility] [place] [address] Metal Milling Machine Operator Internal Medicine 11/01/24 Misael Lara APRN.4TH GRADE TEACHER [address] [place] [address] Metal Milling Machine Operator Internal Medicine 12/28/24 Team Status: Inactive Member Role/Relationship Status Dates Dr. Jonny Torres MD Primary Care Provider Active Start: December 23, 2024 End: December 23, 2024 GEORGIANA Prabhakar Attending Provider Active Star t: December 23, 2024 End: December 23, 2024 GEORGIANA Prabhakar Referring Provider Active Star t: December 23, 2024 End: December 23, 2024 Team Status: Inactive Member Role/Relationship Status Dates Dr. Jonny Torres MD Primary Care Provider Active Start: January 12, 2025 End: January 12, 2025 Dr. Jonny Torres MD Referring Provider Active Start: January 12, 2025 End: January 12, 2025 GEORGIANA Prabhakar Attending Provider Active Star t: January 12, 2025 End: January 12, 2025 Team Status: Inactive Member Role/Relationship Status Dates Dr. Jonny Torres MD Primary Care Provider Active Start: January 12, 2025 End: January 12, 2025 Dr. Braulio Prince MD Attending Provider Active S tart: January 12, 2025 End: January 12, 2025 Team Status: Inactive Member Role/Relationship Status Dates Dr. Jonny Torres MD Primary Care Provider Active Start: February 03, 2025 End: February 03, 2025 Ray STONER PA Attending Provider Active Sta rt: February 03, 2025 End: February 03, 2025 GEORGIANA Abbasi Referring Provider Active Sta rt: February 03, 2025 End: February 03, 2025 Team Status: Inactive Member Role/Relationship Status Dates Dr. Jonny Torres MD Primary Care Provider Active Start: February 03, 2025 End: February 03, 2025 Dr. Jonny Torres MD Referring Provider Active Start: February 03, 2025 End: February 03, 2025 Ray STONER PA Attending Provider Active Sta rt: February 03, 2025 End: February 03, 2025 Team Status: Inactive Member Role/Relationship Status Dates Dr. Jonny Torres MD Primary Care Provider Active Start: February 14, 2025 End: February 14, 2025 Dr. Jonny Torres MD Referring Provider Active Start: February 14, 2025 End: February 14, 2025 ANAND Stern Attending Provider Active Start: February 14, 2025 End: February 14, 2025 Team Status: Inactive Member Role/Relationship Status Dates Dr. Jonny Torres MD Primary Care Provider Active Start: February 14, 2025 End: February 14, 2025 Dr. Braulio Prince MD Attending Provider Active S tart: February 14, 2025 End: February 14, 2025 Team Status: Inactive Member Role/Relationship Status Dates Dr. Jonny Torres MD Primary Care Provider Active Start: March 02, 2025 End: March 02, 2025 Dr. Jonny Torres MD Referring Provider Active Start: March 02, 2025 End: March 02, 2025 ANAND Stern Attending Provider Active Start: March 02, 2025 End: March 02, 2025 Team Status: Inactive Member Role/Relationship Status Dates Dr. Jonny Torres MD Primary Care Provider Active Start: April 04, 2025 End: April 04, 2025 Dr. Jonny Torres MD Referring Provider Active Start: April 04, 2025 End: April 04, 2025 ANAND Stern Attending Provider Active Start: April 04, 2025 End: April 04, 2025 Rubber Chemist Relationship Specialty Start Date End Date Jonny Torres MD [address] [place], [place] [address] PCP - General Internal Medicine 04/07/17 Yulia Haywood, SCIENTIST ENGINEER.ASSOCIATE PROPERTY MANAGER [address] [place], [place] [address] [facility] Internal Medicine 11/01/24 Misael Lara, SCIENTIST ENGINEER.4TH GRADE TEACHER [address] [place], [place] [address] [facility] Internal Medicine 12/28/24 Team Status: Inactive Member Role/Relationship Status Dates Dr. Jonny Torres MD Primary Care Provider Active Start: April 11, 2025 End: April 11, 2025 Dr. Jonny Torres MD Referring Provider Active Start: April 11, 2025 End: April 11, 2025 ANAND Stern Attending Provider Active Start: April 11, 2025 End: April 11, 2025 Rubber Chemist Relationship Specialty Start Date End Date Jonny Torres MD [address] [place] [address] PCP - General Internal Medicine 04/07/17 Yulia Haywood, SCIENTIST ENGINEER.ASSOCIATE PROPERTY MANAGER [address] [place], [place] [address] Metal Milling Machine Operator Internal Medicine 11/01/24 Misael Lara, SCIENTIST ENGINEER.4TH GRADE TEACHER [address] [place], [place] [address] Metal Milling Machine Operator Internal Medicine 12/28/24 Team Status: Inactive Member Role/Relationship Status Dates Dr. Jonny Torres MD Primary Care Provider Active Start: April 18, 2025 End: April 18, 2025 Dr. Jonny Torres MD Referring Provider Active Start: April 18, 2025 End: April 18, 2025 ANAND Stern Attending Provider Active Start: April 18, 2025 End: April 18, 2025 Team Status: Active Member Role/Relationship Status Dates Dr. Jonny Torres MD Primary care physician Active Team Status: Inactive Member Role/Relationship Status Dates Dr. Jonny Torres MD Primary care physician Active Start: January 12, 2025 End: January 12, 2025 Dr. Jonny Torres MD Referring Provider Active Start: January 12, 2025 End: January 12, 2025 GEORGIANA Prabhakar Attending physician Active Sta rt: January 12, 2025 End: January 12, 2025 Team Status: Inactive Member Role/Relationship Status Dates Dr. Jonny Torres MD Primary care physician Active Start: January 12, 2025 End: January 12, 2025 Dr. Braulio Prince MD Attending physician Active Start: January 12, 2025 End: January 12, 2025 Team Status: Inactive Member Role/Relationship Status Dates Dr. Jonny Torres MD Primary care physician Active Start: February 03, 2025 End: February 03, 2025 GEORGIANA Abbasi Attending physician Active St art: February 03, 2025 End: February 03, 2025 GEORGIANA Abbasi Referring Provider Active Sta rt: February 03, 2025 End: February 03, 2025 Team Status: Inactive Member Role/Relationship Status Dates Dr. Jonny Torres MD Primary care physician Active Start: February 03, 2025 End: February 03, 2025 Dr. Jonny Torres MD Referring Provider Active Start: February 03, 2025 End: February 03, 2025 GEORGIANA Abbasi Attending physician Active St art: February 03, 2025 End: February 03, 2025 Team Status: Inactive Member Role/Relationship Status Dates Dr. Jonny Torres MD Primary care physician Active Start: February 14, 2025 End: February 14, 2025 Dr. Jonny Torres MD Referring Provider Active Start: February 14, 2025 End: February 14, 2025 ANAND Stern Attending physician Active Start: February 14, 2025 End: February 14, 2025 Team Status: Inactive Member Role/Relationship Status Dates Dr. Jonny Torres MD Primary care physician Active Start: February 14, 2025 End: February 14, 2025 Dr. Barulio Prince MD Attending physician Active Start: February 14, 2025 End: February 14, 2025 Team Status: Inactive Member Role/Relationship Status Dates Dr. Jonny Torres MD Primary care physician Active Start: March 02, 2025 End: March 02, 2025 Dr. Jonny Torres MD Referring Provider Active Start: March 02, 2025 End: March 02, 2025 ANAND Stern Attending physician Active Start: March 02, 2025 End: March 02, 2025 Team Status: Inactive Member Role/Relationship Status Dates Dr. Jonny Torres MD Primary care physician Active Start: April 04, 2025 End: April 04, 2025 Dr. Jonny Torres MD Referring Provider Active Start: April 04, 2025 End: April 04, 2025 ANAND Stern Attending physician Active Start: April 04, 2025 End: April 04, 2025 Team Status: Inactive Member Role/Relationship Status Dates Dr. Jonny Torres MD Primary care physician Active Start: April 11, 2025 End: April 11, 2025 Dr. Jonny Torres MD Referring Provider Active Start: April 11, 2025 End: April 11, 2025 ANAND Stern Attending physician Active Start: April 11, 2025 End: April 11, 2025 Team Status: Inactive Member Role/Relationship Status Dates Dr. Jonny Torres MD Primary care physician Active Start: April 18, 2025 End: April 18, 2025 Dr. Jonny Torres MD Referring Provider Active Start: April 18, 2025 End: April 18, 2025 ANAND Stern Attending physician Active Start: April 18, 2025 End: April 18, 2025 Team Status: Inactive Member Role/Relationship Status Dates Dr. Jonny Torres MD Primary care physician Active Start: May 05, 2025 End: May 05, 2025 Dr. Jonny Torres MD Referring Provider Active Start: May 05, 2025 End: May 05, 2025 Dr. Vanessa Stern MD Attending physician Active Start: May 05, 2025 End: May 05, 2025 Reason for Visit (unrecogniz ed section and content) Reason Comments Radiology US Specialty Diagnoses / Procedures Referred By Contac t Referred To Contact [facility] Diagnoses Concern about appearance of breast Mass of lower inner quadrant of left breast Procedures US BREAST LTD LEFT US BREAST UNI REAL TIME WITH IMAGE LIMITED Kenny Pandey APRN.ASSOCIATE PROPERTY MANAGER [address] [place] [address] Phone: tel: fax: [facility] [address] [place] [address] Referral ID Status Reason Start Date Expiration Date V isits Requested Visits Authorized [id number] Closed Auto-Generate d Referral 09/09/2024 10/09/2025 1 1 Reason Comments F/U 6 months Reason Comments Fall Pt fell at home pain middle back pain rated 7, x2 days Reason Comments Appointment Reclast Reason Comments Abdominal Pain Specialty Diagnoses / Procedures Referred By Contac t Referred To Contact [facility] Diagnoses RUQ abdominal pain Procedures US ABD RT UPPER QUADRANT US ABDOMINAL REAL TIME W/IMAGE LIMITED Misael Lara, SCIENTIST ENGINEER.[employer] TEACHER [address] [place] [address] Us [facility] Referral ID Status Reason Start Date Expiration Date V isits Requested Visits Authorized [id number] Closed Auto-Generate d Referral 01/14/2022 02/13/2023 1 1 Reason Comments Covid19 Concern Reason Comments Consult GERD, constipation, bloating Specialty Diagnoses / Procedures Referred By Contac t Referred To Contact General Surgery Diagnoses Gastroesophageal reflux disease without esophagitis Constipation, unspecified constipation type Procedures CONSULT TO GENERAL SURGERY OFFICE/OUTPATIENT 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, unspecified osteoporosis type, subsequent encounter History of total right hip arthroplasty Abel Owens, DO [address] [place] [address] [facility] [address] [place] [address] Referral ID Status Reason Start Date Expiration Date Visits Re quested Visits Authorized [id number] Closed 06/01/2020 08/30/2020 1 1 Reason Onset [...] Expiration Date Visits Re quested Visits Authorized [id number] 1 1 Reason Comments Follow-up Reason Comments Home Health Orders Reason Comments Hospital F/U Reason Comments Physical Therapy Plan of Care Reason Comments Fracture Follow-up Reason Onset Date Comments Refill Request 01/17/2024 Reason Onset Date Comments Refill Request 02/02/2024 Reason Comments F/U 6 months Labs prior Reason Comments UTI Reason Comments Established Patient EC follow up 03/26 Reason Onset Date Comments Refill Request 06/24/2024 Reason Comments Cough Breast Problem L breast enlargment Reason Comments Follow Up Reason Comments Urinary Frequency burning with urinati on x 4 days Reason Onset Date Comments Results 10/31/2024 Reason Onset Date Comments Refill Request 01/20/2025 Reason Onset Date Comments Urine cx results and pt question 02/23/2025 Reason Comments F/U 6 Month Fall Recent fall 02/02, fo llowing up with ORTHO, R leg and knee pain Reason Comments Patient Update Reason Comments Osteoporosis Specialty Diagnoses / Procedures Referred By Contac t Referred To Contact Endocrinology Diagnoses Age-related osteoporosis with current pathological fracture, sequela Procedures OFFICE/OUTPATIENT [facility] 60 MINUTES Jonny Torres MD [address] [place] [address] Phone: tel: fax: Ramone Dorman MD [address] [place] [address] Phone: tel: fax: Referral ID Status Reason Start Date Expiration Date V isits Requested Visits Authorized [id number] Closed PCP Requested Referral 02/15/2025 02/15/2026 1 1 Reason Comments Osteoporosis Goals (unrecognized section and content) Goals may be documented in a n alternate sectionGoals may be documented in an alternate sectionGoals may be documented in an alternate sectionGoals may be documented in an alternate sectionGoals may be documented in an alternate sectionGoals may be documented in an alternate sectionGoals may be documented in an alternate sectionGoals may be documented in an alternate sectionGoals may be documented in an alternate sectionGoals may be documented in an alternate sectionGoals may be documented in an alternate sectionGoals may be documented in an alternate section Scheduled Active and Recently Administ ered Medications (unrecognized section and content) Medication Order 08/26/2023 08/27/2023 08/28/2023 ascorbic acid (vitamin C) (VITAMIN C) tablet 500 mg 500 mg, Oral, 2 times daily, First dose on Thu08/21/23 at 2100 0815 (Given - Provider: Fouzia Buenrostro LPN)2033 (Given - Provider: Annie Brush RN) 08 (Given - Provider: Carolina Correa RN)2006 (Given - Provider: Annie Brush RN) 0959 (Given - Provider: Erma Cardenas LPN) aspirin EC tablet 81 mg 81 mg, Oral, Daily, First dose on Thu08/23/23 at 1100, DO NOT CRUSH OR CHEW. 08 (Given - Provider: Fouzia Buenrostro LPN) 0854 (Given - Provider: Carolina Correa RN) 1118 (Given - Provider: Erma Cardenas LPN - Comment: not aailable requested x 2) atorvastatin (LIPITOR) tablet 10 mg 10 mg, Oral, Nightly, First dose on Thu08/21/23 at 2100 2033 (Given - Provider: Annie Brush RN) 2006 (Given - Provider: Annie Brush RN) bisacodyL (DULCOLAX) suppository 10 mg 10 mg, Rectal, Daily, First dose on Thu08/25/23 at 1445 0900 (Not Given - Provider: Fouzia Buenrostro LPN - Reason: Patient/family refused) 0852 (Given - Provider: Carolina Correa RN) 0900 (Not Given - Provider: Erma Cardenas LPN - Reason: Patient/family refused) cholecalciferol (vitamin D3) tablet 1,000 Units 1,000 Units, Oral, 2 times daily, First dose on Thu08/21/23 at 2100 0815 (Given - Provider: Fouzia Buenrostro LPN)2032 (Given - Provider: Annie Brush RN) 0854 (Given - Provider: Carolina Correa RN)2006 (Given - Provider: Annie Brush RN) 0959 (Given - Provider: Erma Cardenas LPN) clopidogreL (PLAVIX) tablet 75 mg 75 mg, Oral, Daily, First dose on Thu08/23/23 at 1100 2032 (Given - Provider: Annie Brush RN) 2006 (Given - Provider: Annie Brush RN) DULoxetine (CYMBALTA) DR capsule 20 mg 20 mg, Oral, Daily, First dose on 08/22/23 at 0900, DO NOT CRUSH OR CHEW. 0815 (Given - Provider: Fouzia Buenrostro LPN) 0855 (Given - Provider: Carolina Correa RN) 1118 (Given - Provider: Erma Cardenas LPN - Comment: not available req x 2 from pharmacy) enoxaparin (LOVENOX) syringe 30 mg (CANCELED) 30 mg, Subcutaneous, 2 times daily, First dose on Thu08/24/23 at 2100, Administer in abdomen unless otherwise directed by prescriber. Notify physician if patient refuses., Indication: VTE Prophylaxis 09 (Given - Provider: Fouzia Buenrostro LPN)2034 (Given - Provider: Annie Brush RN) 08 (Given - Provider: Carolina Correa RN)2007 (Given - Provider: Annie Brush RN) 0955 (Not Given - Provider: Erma Cardenas LPN - Reason: Other) lidocaine patch 1 patch 1 patch, Transdermal, Administer over 12 Hours, Daily, First dose on 08/22/23 at 1630, Apply to lumbar for 12 hours, then remove patch for 12 hours. 0814 (Patch Applied - Provider: Fouzia Buenrostro LPN)2013 (Patch Removed - Provider: Annie Brush RN) 0852 (Patch Applied - Provider: Carolina Correa RN - Comment: back)2051 (Patch Removed - Provider: Annie Brush RN) 0900 (Not Given - Provider: Erma Cardenas LPN - Reason: Patient/family refused) pantoprazole (PROTONIX) EC tablet 40 mg 40 mg, Oral, 2 times daily, First dose on Thu08/21/23 at 2100, DO NOT CRUSH OR CHEW. 0815 (Given - Provider: Fouzia Buenrostro LPN)2032 (Given - Provider: Annie Brush RN) 0853 (Given - Provider: Carolina Correa RN)2006 (Given - Provider: Annie Brush RN) 0958 (Given - Provider: Erma Cardenas LPN) polyethylene glycol (MIRALAX) powder 17 g 17 g, Oral, Daily, First dose on Thu08/21/23 at 1800 0900 (Not Given - Provider: Fouzia Buenrostro LPN - Reason: Patient/family refused) 0900 (Not Given - Provider: Carolina Correa RN - Reason: Patient/family refused) 0900 (Not Given - Provider: Erma Cardenas LPN - Reason: Patient/family refused) sucralfate (CARAFATE) tablet 1 g 1 g, Oral, 4 times daily, First dose on Thu08/21/23 at 2100, Administer on an empty stomach. Do not administer antacids within 30 minutes of administration of sucralfate. In general, separate administration of other oral medications and sucralfate by at least 2 hours Enteral feed should be stopped at least 1 hour before dose and not re-started for 1 hour post-dose. A longer break may be prudent in patients with delayed gastric emptying. 0815 (Given - Provider: Fouzia Buenrostro LPN)1348 (Given - Provider: Fouzia Buenrostro LPN)1742 (Given - Provider: Fouzia Buenrostro LPN)2032 (Given - Provider: Annie Brush RN) 0854 (Given - Provider: Carolina Correa RN)1356 (Given - Provider: Carolina Correa RN)1652 (Given - Provider: Carolina Correa RN)2006 (Given - Provider: Annie Brush RN) 0958 (Given - Provider: Erma Cardenas LPN)1334 (Given - Provider: rEma Cardenas LPN) vitamin E capsule 400 Units 400 Units, Oral, 2 times daily, First dose on Thu08/22/23 at 0900, DO NOT CRUSH OR CHEW. 0815 (Given - Provider: Fouzia Buenrostro LPN)2032 (Given - Provider: Annie Brush RN) 0853 (Given - Provider: Carolina Correa RN)2100 (Not Given - Provider: Annie Brush RN - Reason: Patient/family refused) 0959 (Given - Provider: Erma Cardenas LPN) PRN Medication Order 08/26/2023 08/27/2023 08/28/2023 acetaminophen (TYLENOL) tablet 650 mg 650 mg, Oral, Every 4 hours PRN, headaches, mild pain, Starting on 08/21/23 at 2003 0815 (Given - Provider: Fouzia Buenrostro LPN)1350 [...] STAT, Until discontinued, Starting on Thu08/21/23 at 2004, Until Specified
Respiratory rate less than: 8
[...] BE BASED ON THE PRIMARY CLINICAL RECORDS. [facility]. provides no warranty or guarantee of the accuracy or completeness of information in this document.
== END | disposition home or self-care (01) ==
PROVIDERS: PCP Internal Medicine; Referring Provider Urology; Visit Provider Urology
DX: N39.0 Urinary tract infection, site not specified (principal)
CPT/HCPCS: 76770